=== PATIENT | male | born 1975 | race Caucasian/White ===

== ENCOUNTER 2024-09-28 18:02 | Emergency (ER) | payer MEDICAID, SELFPAY ==
[2024-09-28 18:08] VITALS: BP 103/66; PULSE 76; RESP 19; TEMP 36.8; O2SAT 96; BMI 25.8
--- NOTE | 2024-09-28 19:30 | XR_ITS ---
Examination: PA chest single view Technique: Upright PA chest single view Exam date and time: September 28, 2024 1936 hrs. Indications: Shortness of breath coughing beginning 3 days ago. Findings: Suspicious for early right upper lobe pneumonia Normal heart size The osseous structures are intact Impression: Suspicious for early right upper lobe pneumonia
--- NOTE | 2024-09-28 20:19 | PD.EDADULT ---
ED General RME/HPI General Chief complaint: Neuro Symptoms/Deficit Stated complaint: THINKS HE HAD A SEIZURE Time Seen by Provider: 09/28/24 19:30 Arrival date/time: 09/28/24 18:02 CC: Patient reports flailing of his arms at 3 AM while on the CPAP HPI as reported by his roommate. Since then the patient has had no other complaints of the mild shortness of breath patient denies cough or fever Related Data Home Medications ?Medication ?Instructions ?Recorded ?Confirmed lisinopril 20 mg tablet 30 mg PO QDAY #0 tabs 08/22/17 08/07/24 metoprolol tartrate 100 mg tablet 100 mg PO BID 03/14/21 08/07/24 metformin 500 mg tablet 500 mg PO HS 06/28/21 08/07/24 ropinirole 0.25 mg tablet 0.25 mg PO HS 10/03/21 08/07/24 amiodarone 200 mg tablet 200 mg PO QDAY 04/05/22 08/07/24 atorvastatin 40 mg tablet 40 mg PO HS 09/04/22 08/07/24 meclizine 25 mg tablet 25 mg PO BID PRN Dizziness 09/04/22 08/07/24 clopidogrel 75 mg tablet 75 mg PO QDAY 10/24/23 08/07/24 duloxetine 30 mg capsule,delayed 30 mg PO QDAY 10/24/23 08/07/24 release finasteride 5 mg tablet 5 mg PO QDAY 10/24/23 08/07/24 furosemide 20 mg tablet 20 mg PO QDAY 10/24/23 08/07/24 semaglutide 1 mg/dose (4 mg/3 mL) 1 mg subcut QWEEK 10/24/23 08/07/24 subcutaneous pen injector (Ozempic) gabapentin 300 mg capsule 300 mg PO TID 08/07/24 08/07/24 Previous Rx's ?Medication ?Instructions ?Recorded sulfamethoxazole 800 1 tab PO BID #14 tabs 02/06/24 mg-trimethoprim 160 mg tablet (Bactrim DS) furosemide 40 mg tablet (Lasix) 40 mg PO QDAY #14 tabs 04/18/24 potassium chloride 20 mEq 20 meq PO QDAY #14 tabs 04/18/24 tablet,extended release hydrocortisone 2.5 % topical cream 1 applic topical BID #28.35 grams 05/18/24 tamsulosin 0.4 mg capsule (Flomax) 0.4 mg PO QDAY #7 caps 07/12/24 cefuroxime axetil 500 mg tablet 500 mg PO BID #14 tabs 08/15/24 tamsulosin 0.4 mg capsule (Flomax) 0.4 mg PO QDAY #7 caps 08/23/24 azithromycin 250 mg tablet See Rx Instructions PO .COMPLEX #6 09/28/24 tabs Allergies Allergy/AdvReac Type Severity Reaction Status Date / Time No Known Allergies Allergy Verified 09/28/24 18:04 Review of Systems Review of Systems Narrative Review of Systems: GEN: No fever, no chills, no weight loss EYES: No discharge, no visual changes, no pain HEENT: No ear pain, no congestion, no sore throat PULM: No shortness of breath, no cough, no congestion CV: No chest pain, no dyspnea on exertion, no palpitations GI: No nausea, no vomiting, no diarrhea, no pain, no constipation : No frequency, no urgency, no dysuria MUSC/SKEL: No joint pain, no back pain SKIN: No rash PSYCH: No hallucinations, no depression HEME/LYMPH: No easy bleeding or bruising tendencies NEURO: No weakness, no headache Past Medical History Past Medical History NEUROLOGIC: Negative Neurological Disorders CARDIAC: Positive Cardiac Disorders, Myocardial Infarction, Angina, Coronary Artery Disease, Atherosclerotic Heart Disease, Hypercholesterolemia, Congestive Heart Failure, Edema, Deep Vein Thrombosis and Hypertension RESPIRATORY: Positive Asthma, Pneumonia, Pulmonary Embolism and Sleep Apnea; Negative Chronic Obstructive Pulmonary Disease (COPD) GASTROINTESTINAL: Positive Gastrointestinal Disorders, Gastroesophageal Reflux Disease and Obesity GENITOURINARY: Positive Genitourinary Disorders, Kidney Stones and Benign Prostatic Hyperplasia; Negative Renal Disease MUSCULOSKELETAL: Negative Musculoskeletal Disorders ENDOCRINE: Positive Diabetes Mellitus Type 2; Negative Endocrine Disorders or Diabetes Mellitus Type 1 HEMATOLOGIC: Positive Blood Disorders and Clotting Problems; Negative Anemia or Sickle Cell Disease PSYCHO/SOCIAL: Positive Anxiety OTHER HISTORY: Positive Developmental Delay and Falls; Negative Autoimmune Disease, Blood Transfusions, Anesthesia Reactions or Cancer Family History FAMILY HISTORY: Positive Family Cardiac Disorders, Family Cancer and Family Surgery; Negative Family Neurologic Problems, Family Psychiatric Problems, Family Respiratory Disorders, Family Gastrointestinal Problems or Family Anesthesia Reaction Surgical History SURGICAL: Positive Angiogram; Negative Coronary Stent Social History SMOKING STATUS: Never smoker SECOND HAND EXPOSURE: No SUBSTANCE USE: does not use 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 Exam Narrative Physical exam: [General: Obese not in any acute distress Head normocephalic HEENT: Within acceptable limits Neck is supple nontender Chest equal chest rise nontender to palpation Respiratory: Clear to auscultation no wheezes crackles or rubs CV: Rate rhythm is regular no murmurs rubs or clicks Abdomen is distended secondary to body habitus soft nontender no masses positive bowel sounds all 4 quadrants Back: No CVA tenderness no spinous process tenderness from cervical spine thoracic and lumbar spine Skin: Intact no petechiae rash induration ulceration or crepitus Extremities: Moving all extremity against resistance cap refill less than 2 seconds neurosensory intact Neuro: Awake alert oriented x3 Glascow coma 15 no focal deficits] Course Quality Measures none Orders Category Date Time Status XR chest 1V Stat Exams 09/28/24 19:30 Completed Vital Signs Vital signs: Vital Signs Temperature 98.2 F 09/28/24 18:08 Pulse Rate 76 09/28/24 18:08 Respiratory Rate 19 09/28/24 18:08 Blood Pressure 103/66 09/28/24 18:08 Pulse Oximetry (%) 96 09/28/24 18:08 Oxygen Delivery Method Room Air 09/28/24 18:08 [facility] Patient data External records reviewed:: [facility] previous records Clinical information provided by:: patient Social determinants that could affect healthcare access:: none Patient has the following chronic illnesses:: BiPAP at home on Flomax diabetic hypertension How is presenting disease/condition affected by chronic disease/condition?: uneffected by Evaluation data The following diagnostics were reviewed and interpreted by me:: lab results and radiology exam(s) Lab and/or radiology exams considered but not ordered:: Chest x-ray this is a possibility pneumonia. However patient has had no respiratory symptoms. Interpretation Summary: Possible pneumonia Medications Medications considered but not ordered:: None Medication administrations:: None Consultations Consultation(s) initiated? (list below): No Diagnosis Differential Diagnosis ED Complaint MDM: Pneumonia CHF COPD Most likely diagnosis given after review of the tests above:: Probably pneumonia Admission Indicated Admission indicated?: not indicated Explain why admission is indicated or not indicated:: Stable for outpatient follow-up Admission Request Was there a request for admission?: No Disposition Plan Disposition Plan: Discharge Discharge Attestation Discharge Attestation: The patient and all family members were given an opportunity to ask questions and understood the discharge instructions. Discharge instructions specifically effects, indications for sooner follow up or return to the emergency department, and the expected course of current diagnosis. Patient condition: Stable Medical Decision Making Differential Diagnosis Differential Diagnosis: Pneumonia CHF COPD Discharge Plan Plan Patient Disposition: HOME (Self Care) Patient condition on transfer: Stable Prescriptions/Referrals Prescriptions/Med Rec: New azithromycin 250 mg tablet See Rx Instructions .ROUTE .COMPLEX Qty: 6 0RF Rx Instructions: For 250 mg dose pack: take 500 mg today (day 1), then 250 mg for 4 days (days 2-5) No Action gabapentin 300 mg capsule 300 mg PO TID lisinopril 20 MG tablet 30 mg PO QDAY Qty: 0 metformin 500 mg tablet 500 mg PO HS Patient Comments: TAKE 1 TABLET BY MOUTH EVERY DAY AT BEDTIME FOR DIABETES metoprolol tartrate 100 mg tablet 100 mg PO BID Patient Comments: TAKE 1 TABLET BY MOUTH TWICE A DAY FOR BLOOD PRESSURE ropinirole 0.25 mg Tablet 0.25 mg PO HS amiodarone 200 mg Tablet 200 mg PO QDAY atorvastatin 40 mg tablet 40 mg PO HS Patient Comments: TAKE 1 TABLET BY MOUTH AT BEDTIME FOR CHOLESTEROL meclizine 25 mg tablet 25 mg PO BID PRN (Reason: Dizziness) Patient Comments: TAKE 1-2 TABLETS BY MOUTH TWICE A DAY NEEDED FOR DIZZINESS sulfamethoxazole-trimethoprim [Bactrim DS] 800-160 mg tablet 1 tab PO BID Qty: 14 0RF hydrocortisone 2.5 % cream 1 applic topical BID Qty: 28.35 0RF Rx Instructions: Stop when rash is gone; no more than 2 weeks tamsulosin [Flomax] 0.4 mg capsule 0.4 mg PO QDAY Qty: 7 0RF cefuroxime axetil 500 mg tablet 500 mg PO BID Qty: 14 0RF tamsulosin [Flomax] 0.4 mg capsule 0.4 mg PO QDAY Qty: 7 0RF furosemide 20 mg tablet 20 mg PO QDAY Ozempic 1 mg/dose (4 mg/3 mL) pen injector 1 mg SUBCUT QWEEK Rx Instructions: 1 time weekly duloxetine 30 mg capsule,delayed release(DR/EC) 30 mg PO QDAY finasteride 5 mg tablet 5 mg PO QDAY Patient Comments: TAKE 1 TABLET BY MOUTH EVERY DAY clopidogrel 75 mg tablet 75 mg PO QDAY furosemide [Lasix] 40 mg tablet 40 mg PO QDAY Qty: 14 0RF potassium chloride 20 mEq tablet extended release 20 meq PO QDAY Qty: 14 0RF Referrals: Akila Diaz PA-C [Primary Care Provider] - In 1 week Problem List Clinical Impression: Pneumonia Patient/Caregiver Discharge Instructions Other Activity Instructions:: Your chest x-ray is read as pneumonia I have low index suspicion that this is what you have however we will treat accordingly if there is a worsening of symptoms spite of medications return the emergency room immediately for further evaluation. Education Materials: ED Pneumonia (Adult) Print Language: Dutch Stand Alone Forms: [employer] Award Info., Patient Portal Info Letter, Work/School Release PA/LIGHT RAIL SIGNAL TECHNICIAN Supervising Physician PA/LIGHT RAIL SIGNAL TECHNICIAN Supervising Physician: Tate [place] ENP
[2024-09-28 20:27] VITALS: RESP 18
== END 2024-09-28 20:28 | disposition home or self-care (01) ==
PROVIDERS: Emergency Provider Emergency Medicine; PCP Physician Assistant
DX: J18.9 Pneumonia, unspecified organism (principal)
CPT/HCPCS: 71045; 99283

== ENCOUNTER 2024-10-10 15:39 | Emergency (ER) | payer MEDICAID, SELFPAY ==
--- NOTE | 2024-10-10 16:21 | XR_ITS ---
Examination: PA lateral chest 2 views Technique: Upright PA lateral chest 2 views Exam date and time: October 10, 2024 1626 hrs. Comparison September 28, 2024 Indications: Coughing back pain today. Findings: Mild bilateral perihilar basilar pneumonia Normal heart size The osseous structures are intact Impression: Mild bilateral perihilar basilar pneumonia
--- NOTE | 2024-10-10 16:22 | EDNOTE_ITS ---
ED Back Injury Pain RME/HPI General Chief Complaint: Back Pain/Injury Stated Complaint: BACK PAIN Time Seen by Provider: 10/10/24 16:18 Arrival date/time: 10/10/24 15:39 RME / HPI RME / HPI Narrative: 49-year-old male patient came in for evaluation regarding cough. Patient's been having cough for several days, associated with upper back pain, described as dull ache, separately moderate. Denies any fever denies any shortness of breath denies any fall denies any trauma patient is ambulatory no medications taken prior travel. Related Data Home Medications ?Medication ?Instructions ?Recorded ?Confirmed lisinopril 20 mg tablet 30 mg PO QDAY #0 tabs 08/22/17 08/07/24 metoprolol tartrate 100 mg tablet 100 mg PO BID 03/14/21 08/07/24 metformin 500 mg tablet 500 mg PO HS 06/28/21 08/07/24 ropinirole 0.25 mg tablet 0.25 mg PO HS 10/03/21 08/07/24 amiodarone 200 mg tablet 200 mg PO QDAY 04/05/22 08/07/24 atorvastatin 40 mg tablet 40 mg PO HS 09/04/22 08/07/24 meclizine 25 mg tablet 25 mg PO BID PRN Dizziness 09/04/22 08/07/24 clopidogrel 75 mg tablet 75 mg PO QDAY 10/24/23 08/07/24 duloxetine 30 mg capsule,delayed 30 mg PO QDAY 10/24/23 08/07/24 release finasteride 5 mg tablet 5 mg PO QDAY 10/24/23 08/07/24 furosemide 20 mg tablet 20 mg PO QDAY 10/24/23 08/07/24 semaglutide 1 mg/dose (4 mg/3 mL) 1 mg subcut QWEEK 10/24/23 08/07/24 subcutaneous pen injector (Ozempic) gabapentin 300 mg capsule 300 mg PO TID 08/07/24 08/07/24 Previous Rx's ?Medication ?Instructions ?Recorded sulfamethoxazole 800 1 tab PO BID #14 tabs 02/06/24 mg-trimethoprim 160 mg tablet (Bactrim DS) furosemide 40 mg tablet (Lasix) 40 mg PO QDAY #14 tabs 04/18/24 potassium chloride 20 mEq 20 meq PO QDAY #14 tabs 04/18/24 tablet,extended release hydrocortisone 2.5 % topical cream 1 applic topical BID #28.35 grams 05/18/24 tamsulosin 0.4 mg capsule (Flomax) 0.4 mg PO QDAY #7 caps 07/12/24 cefuroxime axetil 500 mg tablet 500 mg PO BID #14 tabs 08/15/24 tamsulosin 0.4 mg capsule (Flomax) 0.4 mg PO QDAY #7 caps 08/23/24 azithromycin 250 mg tablet See Rx Instructions PO .COMPLEX #6 09/28/24 tabs amoxicillin 875 mg-potassium 1 tab PO BID #14 tabs 10/10/24 clavulanate 125 mg tablet doxycycline monohydrate 100 mg 100 mg PO BID #14 caps 10/10/24 capsule Allergies Allergy/AdvReac Type Severity Reaction Status Date / Time No Known Allergies Allergy Verified 10/10/24 15:40 Review of Systems Review of Systems Narrative Review of Systems: Review of system reviewed and within normal limits except mentioned in HPI ED Exam Narrative Physical exam: VITAL SIGNS: Reviewed. GENERAL APPEARANCE: Alert and interactive, follows commands, no acute distress, HEAD AND FACE: Non-traumatic. ENT: PERRL, pink conjunctivitis, eyelid no trauma, Mucous membrane moist. NECK: Supple, nontender, no nuchal rigidity. CHEST: Posterior back tenderness, no crepitus, no paradoxical movement, no retractions. LUNGS: Clear, well ventilated, symmetric, no rales, no wheezing, no ronchi, no stridor, good breath sounds bilaterally. HEART: Regular rate, regular rhythm, no murmur, no gallops. ABDOMEN: Soft, positive bowel sounds, nondistended, no guarding, nontender, no rebound, no masses, RECTAL: Deferred. GENITAL: Deferred. NEUROLOGICAL: Gross motor function intact sensory function intact, Appropriate for age. MUSCULOSKELETAL: low back nontender, full range of motion. EXTREMITIES: Nontender, full range of motion. SKIN: Color pink, dry, no rash, no lacerations, no abrasions, no contusions. LYMPHATICS: Deferred. Course Quality Measures none Orders Category Date Time Status XR chest 2V Stat Exams 10/10/24 16:21 Completed Amoxicillin/Pot Clav 875 [Augmentin 875] Med 10/10/24 17:12 Discontinued 1 tab PO X1 ONE Doxycycline [Vibramycin] Med 10/10/24 17:12 Discontinued 100 mg PO X1 ONE Ketorolac Inj [Toradol Inj] Med 10/10/24 16:21 Discontinued 30 mg IM X1 ONE Back Pain / Injury MDM Narrative MDM Narrative:: 49-year-old male patient came in for evaluation regarding cough. Patient's been having cough for several days, associated with upper back pain, described as dull ache, separately moderate. Denies any fever denies any shortness of breath denies any fall denies any trauma patient is ambulatory no medications taken prior travel. Chest x-ray came back with Mild bilateral perihilar basilar pneumonia Patient received Augmentin and doxycycline p.o. Patient data External records reviewed:: None Clinical information provided by:: none Social determinants that could affect healthcare access:: none Patient has the following chronic illnesses:: Hypertension, CAD, diabetes mellitus How is presenting disease/condition affected by chronic disease/condition?: exacerbated by Evaluation data The following diagnostics were reviewed and interpreted by me:: radiology exam (s) Lab and/or radiology exams considered but not ordered:: None Interpretation Summary: Chest x-ray showed Mild bilateral perihilar basilar pneumonia Medications / Prescriptions Medications or Prescriptions considered but not ordered:: None Medication administrations:: Medication Administration History Discontinued Medications Amoxicillin/Clavulanate Potassium (Amoxicillin/Pot Clav 875 Tablet) 1 tab PO X1 ONE Stop: 10/10/24 17:13 Doxycycline Hyclate (Doxycycline 100 Mg Tablet) 100 mg PO X1 ONE Stop: 10/10/24 17:13 Ketorolac Tromethamine (Ketorolac Inj 60 Mg/2 Ml Vial) 30 mg IM X1 ONE Stop: 10/10/24 16:22 Augmentin doxycycline and Toradol Consultations Consultation(s) initiated? (list below): No Diagnosis Differential diagnosis back pain/injury: other (Back pain, pneumonia, bronchitis) Most likely diagnosis given after review of the tests above:: Pneumonia Admission Indicated Admission indicated?: not indicated Explain why admission is indicated or not indicated:: Stable Admission Request Was there a request for admission?: No Disposition Plan Disposition Plan: Discharge Discharge Attestation Discharge Attestation: The patient was given an opportunity to ask questions and understood the discharge instructions. Discharge instructions specifically effects, indications for sooner follow up or return to the emergency department, and the expected course of current diagnosis. Patient condition: Stable Discharge Plan Plan Patient Disposition: HOME (Self Care) Disposition Comment: Stable Prescriptions/Referrals Prescriptions/Med Rec: New amoxicillin-pot clavulanate 875-125 mg tablet 1 tab PO BID Qty: 14 0RF doxycycline monohydrate 100 mg capsule 100 mg PO BID Qty: 14 0RF No Action gabapentin 300 mg capsule 300 mg PO TID lisinopril 20 MG tablet 30 mg PO QDAY Qty: 0 metformin 500 mg tablet 500 mg PO HS Patient Comments: TAKE 1 TABLET BY MOUTH EVERY DAY AT BEDTIME FOR DIABETES metoprolol tartrate 100 mg tablet 100 mg PO BID Patient Comments: TAKE 1 TABLET BY MOUTH TWICE A DAY FOR BLOOD PRESSURE ropinirole 0.25 mg Tablet 0.25 mg PO HS amiodarone 200 mg Tablet 200 mg PO QDAY atorvastatin 40 mg tablet 40 mg PO HS Patient Comments: TAKE 1 TABLET BY MOUTH AT BEDTIME FOR CHOLESTEROL meclizine 25 mg tablet 25 mg PO BID PRN (Reason: Dizziness) Patient Comments: TAKE 1-2 TABLETS BY MOUTH TWICE A DAY NEEDED FOR DIZZINESS sulfamethoxazole-trimethoprim [Bactrim DS] 800-160 mg tablet 1 tab PO BID Qty: 14 0RF hydrocortisone 2.5 % cream 1 applic topical BID Qty: 28.35 0RF Rx Instructions: Stop when rash is gone; no more than 2 weeks tamsulosin [Flomax] 0.4 mg capsule 0.4 mg PO QDAY Qty: 7 0RF cefuroxime axetil 500 mg tablet 500 mg PO BID Qty: 14 0RF tamsulosin [Flomax] 0.4 mg capsule 0.4 mg PO QDAY Qty: 7 0RF furosemide 20 mg tablet 20 mg PO QDAY Ozempic 1 mg/dose (4 mg/3 mL) pen injector 1 mg SUBCUT QWEEK Rx Instructions: 1 time weekly duloxetine 30 mg capsule,delayed release(DR/EC) 30 mg PO QDAY finasteride 5 mg tablet 5 mg PO QDAY Patient Comments: TAKE 1 TABLET BY MOUTH EVERY DAY clopidogrel 75 mg tablet 75 mg PO QDAY furosemide [Lasix] 40 mg tablet 40 mg PO QDAY Qty: 14 0RF potassium chloride 20 mEq tablet extended release 20 meq PO QDAY Qty: 14 0RF azithromycin 250 mg tablet See Rx Instructions .ROUTE .COMPLEX Qty: 6 0RF Rx Instructions: For 250 mg dose pack: take 500 mg today (day 1), then 250 mg for 4 days (days 2-5) Referrals: Akila Diaz PA-C [Primary Care Provider] - In 1 week Problem List Clinical Impression: Pneumonia Patient/Caregiver Discharge Instructions Discharge Activity: activity as tolerated Education Materials: What Is Pneumonia?, Preventing Pneumonia Additional Instructions: Thank you for the opportunity for serving you today. You are stable for discharged . You are advised to: Follow-up with your PCP in 1 to 2 days Return to ED for worsening of symptoms Increase oral fluids Take medication as prescribed Print Language: Belarusian Stand Alone Forms: [employer] Award Info., Patient Portal Info Letter PA/KARI Supervising Physician RENAE/KARI Supervising Physician: MD Roni
[2024-10-10] MEDS: DOXYCYCLINE 100 MG TABLET PO (18:07)
[2024-10-10] MEDS: AMOXICILLIN/POT CLAV 875 TABLET 1 TAB PO (18:07)
[2024-10-10] MEDS: KETOROLAC INJ 60 MG/2 ML VIAL 30 MG IM (18:07)
== END 2024-10-10 18:14 | disposition home or self-care (01) ==
PROVIDERS: Emergency Provider Emergency Medicine; PCP Physician Assistant
DX: J18.9 Pneumonia, unspecified organism (principal)
CPT/HCPCS: 71046; 96372; 99283; J1885; A9270

== ENCOUNTER 2024-10-20 23:48 | Emergency (ER) | payer MEDICAID, SELFPAY ==
[2024-10-20 23:49] VITALS: BMI 40.1
[2024-10-21] VITALS: BP 126/80; PULSE 85; RESP 18; TEMP 36.6; O2SAT 97
--- NOTE | 2024-10-21 00:17 | XR_ITS ---
Examination: PA lateral chest 2 views Technique: Upright PA lateral chest 2 views Exam date and time: October 21, 2024 0026 hrs. Indications: Coughing today. Findings: Suspicious for early right upper lobe pneumonia Reduced inspiratory effort Normal heart size Impression: Poor inspiratory effort chest x-ray
--- NOTE | 2024-10-21 00:19 | EDNOTE_ITS ---
Upper Respiratory Inf. RME/HPI General Chief Complaint: General Adult/Misc Complain Stated Complaint: NOT FEELING GOOD Time Seen by Provider: 10/21/24 00:13 Source: patient Arrival date/time: 10/20/24 23:48 48-year-old male presents emergency department complaining of cough, nasal congestion, and generalized bodyaches for 3 days. Patient reports currently on antibiotics for pneumonia. Patient denies any fever, chills, nausea vomiting, chest pain, or any other associated symptoms. Mode of arrival: ambulatory Limitations: no limitations Related Data Home Medications ?Medication ?Instructions ?Recorded ?Confirmed lisinopril 20 mg tablet 30 mg PO QDAY #0 tabs 08/22/17 08/07/24 metoprolol tartrate 100 mg tablet 100 mg PO BID 03/14/21 08/07/24 metformin 500 mg tablet 500 mg PO HS 06/28/21 08/07/24 ropinirole 0.25 mg tablet 0.25 mg PO HS 10/03/21 08/07/24 amiodarone 200 mg tablet 200 mg PO QDAY 04/05/22 08/07/24 atorvastatin 40 mg tablet 40 mg PO HS 09/04/22 08/07/24 meclizine 25 mg tablet 25 mg PO BID PRN Dizziness 09/04/22 08/07/24 clopidogrel 75 mg tablet 75 mg PO QDAY 10/24/23 08/07/24 duloxetine 30 mg capsule,delayed 30 mg PO QDAY 10/24/23 08/07/24 release finasteride 5 mg tablet 5 mg PO QDAY 10/24/23 08/07/24 furosemide 20 mg tablet 20 mg PO QDAY 10/24/23 08/07/24 semaglutide 1 mg/dose (4 mg/3 mL) 1 mg subcut QWEEK 10/24/23 08/07/24 subcutaneous pen injector (Ozempic) gabapentin 300 mg capsule 300 mg PO TID 08/07/24 08/07/24 Previous Rx's ?Medication ?Instructions ?Recorded sulfamethoxazole 800 1 tab PO BID #14 tabs 02/06/24 mg-trimethoprim 160 mg tablet (Bactrim DS) furosemide 40 mg tablet (Lasix) 40 mg PO QDAY #14 tabs 04/18/24 potassium chloride 20 mEq 20 meq PO QDAY #14 tabs 04/18/24 tablet,extended release hydrocortisone 2.5 % topical cream 1 applic topical BID #28.35 grams 05/18/24 tamsulosin 0.4 mg capsule (Flomax) 0.4 mg PO QDAY #7 caps 07/12/24 cefuroxime axetil 500 mg tablet 500 mg PO BID #14 tabs 08/15/24 tamsulosin 0.4 mg capsule (Flomax) 0.4 mg PO QDAY #7 caps 08/23/24 azithromycin 250 mg tablet See Rx Instructions PO .COMPLEX #6 09/28/24 tabs amoxicillin 875 mg-potassium 1 tab PO BID #14 tabs 10/10/24 clavulanate 125 mg tablet doxycycline monohydrate 100 mg 100 mg PO BID #14 caps 10/10/24 capsule Allergies Allergy/AdvReac Type Severity Reaction Status Date / Time No Known Allergies Allergy Verified 10/20/24 23:50 Review of Systems Review of Systems Systems Reviewed: All systems reviewed, normal except as documented Constitutional Constitutional: Reports system reviewed and no additional complaints, except as documented, Reports body ache(s), Denies chills and Denies fever(s) Eyes Eyes: Reports system reviewed and no additional complaints, except as documented and Denies change in vision ENT Ears, Nose, Mouth, and Throat: Reports system reviewed and no additional complaints, except as documented, Denies disequilibrium, Denies dizziness, Reports nasal congestion, Denies sore throat and Denies vertigo Cardiovascular Cardiovascular: Reports system reviewed and no additional complaints, except as documented, Denies chest pain and Denies dyspnea Respiratory Respiratory: Reports system reviewed and no additional complaints, except as documented, Denies chest congestion, Reports cough and Denies dyspnea Gastrointestinal Gastrointestinal: Reports system reviewed and no additional complaints, except as documented, Denies abdominal pain, Denies nausea and Denies vomiting Musculoskeletal Musculoskeletal: Reports system reviewed and no additional complaints, except as documented, Denies abnormal gait and Denies arthralgias Integumentary/Breasts Skin/Breast: Reports system reviewed and no additional complaints, except as documented, Denies erythema, Denies rash and Denies wounds Neurologic Neurologic: Reports system reviewed and no additional complaints, except as documented, Denies abnormal gait, Denies disequilibrium, Denies dizziness and Denies vertigo Past Medical History Past Medical History NEUROLOGIC: Negative Neurological Disorders CARDIAC: Positive Cardiac Disorders, Myocardial Infarction, Angina, Coronary Artery Disease, Atherosclerotic Heart Disease, Hypercholesterolemia, Congestive Heart Failure, Edema, Deep Vein Thrombosis and Hypertension RESPIRATORY: Positive Asthma, Pneumonia, Pulmonary Embolism and Sleep Apnea; Negative Chronic Obstructive Pulmonary Disease (COPD) GASTROINTESTINAL: Positive Gastrointestinal Disorders, Gastroesophageal Reflux Disease and Obesity GENITOURINARY: Positive Genitourinary Disorders, Kidney Stones and Benign Prostatic Hyperplasia; Negative Renal Disease MUSCULOSKELETAL: Negative Musculoskeletal Disorders ENDOCRINE: Positive Diabetes Mellitus Type 2; Negative Endocrine Disorders or Diabetes Mellitus Type 1 HEMATOLOGIC: Positive Blood Disorders and Clotting Problems; Negative Anemia or Sickle Cell Disease PSYCHO/SOCIAL: Positive Anxiety OTHER HISTORY: Positive Developmental Delay and Falls; Negative Autoimmune Disease, Blood Transfusions, Anesthesia Reactions or Cancer Family History FAMILY HISTORY: Positive Family Cardiac Disorders, Family Cancer and Family Surgery; Negative Family Neurologic Problems, Family Psychiatric Problems, Family Respiratory Disorders, Family Gastrointestinal Problems or Family Anesthesia Reaction Surgical History SURGICAL: Positive Angiogram; Negative Coronary Stent Social History SMOKING STATUS: Never smoker SECOND HAND EXPOSURE: No SUBSTANCE USE: does not use 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 Exam General Limitations: Present no limitations General appearance: Present alert and in no apparent distress Head Head exam: Present atraumatic Eye Eye exam: Present normal appearance, PERRL and EOMI ENT ENT exam: Present normal exam, normal oropharynx and mucous membranes moist Neck Neck exam: Present normal inspection, full ROM and trachea midline Chest Chest inspection: Present normal inspection and symmetric chest wall rise Respiratory Respiratory exam: Present normal lung sounds bilaterally Cardiovascular Cardiovascular exam: Present regular rate, normal rhythm and normal heart sounds Abdominal Exam Abdominal exam: Present soft and normal bowel sounds Extremities Exam Extremities exam: Present normal inspection and full ROM Back Exam Back exam: Present normal inspection and full ROM Neurological Exam Neurological exam: Present alert, oriented X3 and CN II-XII intact Psychiatric Psychiatric exam: Present normal affect and normal mood Skin Skin exam: Present warm, dry, intact and normal color Course Quality Measures none Orders Category Date Time Status Bedside COVID-19 Antigen Test NOW Care 10/21/24 00:17 Active Bedside Influenza A&B Antigen Test NOW Care 10/21/24 00:17 Completed XR chest 2V Stat Exams 10/21/24 00:17 Taken Acetaminophen Tab [Tylenol Tab] Med 10/21/24 01:04 Once 650 mg PO X1 ONE Vital Signs Vital signs: Vital Signs Temperature 98 F 10/21/24 00:00 Pulse Rate 85 10/21/24 00:00 Respiratory Rate 18 10/21/24 00:00 Blood Pressure 126/80 10/21/24 00:00 Pulse Oximetry (%) 97 10/21/24 00:00 Oxygen Delivery Method Room Air 10/21/24 00:00 97% room air within normal limits Upper Respiratory Infection MDM Narrative MDM Narrative:: 48-year-old male presents emergency department complaining of cough, nasal congestion, and generalized bodyaches for 3 days. Patient reports currently on antibiotics for pneumonia. Patient denies any fever, chills, nausea vomiting, chest pain, or any other associated symptoms. No adventitious lung sounds on auscultation. Chest x-ray was unremarkable for any pneumonic infiltrates based on my interpretation. COVID and influenza swabs negative. Patient is already on oral antibiotics for pneumonia likely suffering viral infection. Patient appears nontoxic and is hemodynamically stable. Patient not appear to be in any respiratory distress speaking in full sentences. Patient instructed to continue taking antibiotics and have close follow-up with primary care provider and return to emergency department for any worsening symptoms or as needed. Patient data External records reviewed:: [facility] previous records Clinical information provided by:: patient Social determinants that could affect healthcare access:: none Patient has the following chronic illnesses:: See chart How is presenting disease/condition affected by chronic disease/condition?: uneffected by Evaluation data The following diagnostics were reviewed and interpreted by me:: lab results and radiology exam(s) Lab and/or radiology exams considered but not ordered:: Ordered Interpretation Summary: Interpreted by me Medications / Prescriptions Medications or Prescriptions considered but not ordered:: N/A Medication administrations:: Medication Administration History Acetaminophen (Acetaminophen 325 Mg Tablet) 650 mg PO X1 ONE Stop: 10/21/24 01:05 N/A Consultations Consultation(s) initiated? (list below): No Diagnosis Upper Respiratory Differential Diagnosis: upper respiratory infection, sinusitis, viral infection, bronchitis, influenza and pharyngitis Most likely diagnosis given after review of the tests above:: Viral infection Admission Indicated Admission indicated?: not indicated Admission Request Was there a request for admission?: No Disposition Plan Disposition Plan: Discharge Discharge Attestation Discharge Attestation: The patient and all family members were given an opportunity to ask questions and understood the discharge instructions. Discharge instructions specifically effects, indications for sooner follow up or return to the emergency department, and the expected course of current diagnosis. Patient condition: Stable Discharge Plan Plan Patient Disposition: HOME (Self Care) Disposition Comment: Stable Prescriptions/Referrals Prescriptions/Med Rec: No Action gabapentin 300 mg capsule 300 mg PO TID lisinopril 20 MG tablet 30 mg PO QDAY Qty: 0 metformin 500 mg tablet 500 mg PO HS Patient Comments: TAKE 1 TABLET BY MOUTH EVERY DAY AT BEDTIME FOR DIABETES metoprolol tartrate 100 mg tablet 100 mg PO BID Patient Comments: TAKE 1 TABLET BY MOUTH TWICE A DAY FOR BLOOD PRESSURE ropinirole 0.25 mg Tablet 0.25 mg PO HS amiodarone 200 mg Tablet 200 mg PO QDAY atorvastatin 40 mg tablet 40 mg PO HS Patient Comments: TAKE 1 TABLET BY MOUTH AT BEDTIME FOR CHOLESTEROL meclizine 25 mg tablet 25 mg PO BID PRN (Reason: Dizziness) Patient Comments: TAKE 1-2 TABLETS BY MOUTH TWICE A DAY NEEDED FOR DIZZINESS sulfamethoxazole-trimethoprim [Bactrim DS] 800-160 mg tablet 1 tab PO BID Qty: 14 0RF hydrocortisone 2.5 % cream 1 applic topical BID Qty: 28.35 0RF Rx Instructions: Stop when rash is gone; no more than 2 weeks tamsulosin [Flomax] 0.4 mg capsule 0.4 mg PO QDAY Qty: 7 0RF cefuroxime axetil 500 mg tablet 500 mg PO BID Qty: 14 0RF tamsulosin [Flomax] 0.4 mg capsule 0.4 mg PO QDAY Qty: 7 0RF furosemide 20 mg tablet 20 mg PO QDAY Ozempic 1 mg/dose (4 mg/3 mL) pen injector 1 mg SUBCUT QWEEK Rx Instructions: 1 time weekly duloxetine 30 mg capsule,delayed release(DR/EC) 30 mg PO QDAY finasteride 5 mg tablet 5 mg PO QDAY Patient Comments: TAKE 1 TABLET BY MOUTH EVERY DAY clopidogrel 75 mg tablet 75 mg PO QDAY furosemide [Lasix] 40 mg tablet 40 mg PO QDAY Qty: 14 0RF potassium chloride 20 mEq tablet extended release 20 meq PO QDAY Qty: 14 0RF azithromycin 250 mg tablet See Rx Instructions .ROUTE .COMPLEX Qty: 6 0RF Rx Instructions: For 250 mg dose pack: take 500 mg today (day 1), then 250 mg for 4 days (days 2-5) amoxicillin-pot clavulanate 875-125 mg tablet 1 tab PO BID Qty: 14 0RF doxycycline monohydrate 100 mg capsule 100 mg PO BID Qty: 14 0RF Problem List Clinical Impression: Viral infection Patient/Caregiver Discharge Instructions Discharge Activity: activity as tolerated Education Materials: ED Viral Syndrome (Adult) Additional Instructions: Continue taking antibiotics until completed for pneumonia as you mentioned. Follow-up with primary care provider in 24 to 48 hours and return to emergency department for any worsening symptoms or as needed. Print Language: Icelandic Stand Alone Forms: [employer] Award Info., Patient Portal Info Letter PA/ACCOUNTS ADMINISTRATOR Supervising Physician PA/ACCOUNTS ADMINISTRATOR Supervising Physician: Dr. Gregg
[2024-10-21] MEDS: ACETAMINOPHEN 325 MG TABLET 650 MG PO (01:11)
== END 2024-10-21 01:13 | disposition home or self-care (01) ==
LOC: SERX 10-21 06:28
PROVIDERS: Emergency Provider Emergency Medicine; PCP Physician Assistant
DX: B34.9 Viral infection, unspecified (principal)
CPT/HCPCS: 71046; 87400; 87811; 99283; A9270

== ENCOUNTER 2024-10-22 19:12 | Emergency (ER) | payer MEDICAID, SELFPAY ==
[2024-10-22 19:13] VITALS: BMI 40.4
[2024-10-22 19:54] VITALS: BP 155/92; PULSE 98; RESP 16; TEMP 37.1; O2SAT 96
--- NOTE | 2024-10-22 20:00 | XR_ITS ---
Examination: CT chest, without intravenous contrast. Sagittal and coronal 2-D reconstructions. Exam date and time: October 22, 2024 2010 hrs. Indications: Coughing chest pain today Comparison: January 29, 2024 CTDI:vol (mGy) 16.1 DLP: (mGycm) 638 Technique: Multiple 3.0 mm axial sections of the chest to been obtained. Bone and lung density settings are obtained. Sagittal and coronal 2-D reconstructions have been obtained. Low dose protocols were performed. One or more of the following dose reduction techniques were used; automated exposure control, adjustment of the mA and/or KV according to patient size, use of iterative reconstruction technique. Findings: Aneurysmal dilatation ascending thoracic aorta AP dimension 4.6 cm Pulmonary artery segments are not enlarged No mediastinal lymphadenopathy Mild vascular congestion No pneumonia or pulmonary edema 16mm right lobe liver lesion axial image 115 Contracted gallbladder Spleen not enlarged No pancreatic mass Impression: Mild aneurysmal dilatation ascending thoracic aorta No paratracheal tracheobronchial or bronchopulmonary adenopathy No pneumonia, pulmonary edema or noncalcified pulmonary nodules 16 mm right lobe liver lesion, recommend MRI abdomen follow-up pre and postcontrast
--- NOTE | 2024-10-22 20:01 | PD.EDRME ---
Rapid Medical Screening Exam RME Arrival date/time: 10/22/24 19:12 49M with history of Factor V Leiden mutation, DM, HTN, CHF, CAD, TAA and kidney stones presents to ED with continued dysuria/hematuria. Patient also has this CP and SOB that won't go away, though patient doesn't know if it's from the pain of his kidney stones. Patient has been here several times in the past few days for possible PNA and is on ABX. Chief Complaint: General Adult/Misc Complain Vital signs: Vital Signs Temperature 98.7 F 10/22/24 19:54 Pulse Rate 98 10/22/24 19:54 Respiratory Rate 16 10/22/24 19:54 Blood Pressure 155/92 H 10/22/24 19:54 Pulse Oximetry (%) 96 10/22/24 19:54 Oxygen Delivery Method Room Air 10/22/24 19:54
[2024-10-22 20:29] LABS: Basophils % (Auto) 0 % (0-2.5); Eosinophils # (Auto) 0.1 Thou/mm3 (0.0-0.5); Eosinophils % (Auto) 1 % (0-10); Hemoglobin 17.6 g/dL (13.5-16.0); Immature Granulocytes % (Auto) 0 % (0-0); Immature Granulocytes Auto 0.01 Thou/mm3 (0.00-0.00); Lymphocytes # (Auto) 1.9 Thou/mm3 (1.0-4.8); Lymphocytes % (Auto) 27 % (10-50); Mean Corpuscular HGB Conc 33.8 g/dl (31.0-37.0); Mean Corpuscular Hemoglobin 31.2 pg (25.0-35.0); Mean Corpuscular Volume 92 fL (80-100); Monocytes # (Auto) 0.9 Thou/mm3 (0.0-0.8); Monocytes % (Auto) 13 % (0-12); Neutrophils # (Auto) 4.1 Thou/mm3 (1.8-7.7); Neutrophils % (Auto) 59 % (37-80); Nucleated Red Blood Cell % 0 /100 WBC (0); Platelet Count 244 Thou/mm3 (140-440); RDW Standard Deviation 41.9 fL (35.1-43.9); Red Blood Count 5.65 Miln/mm3 (4.50-5.90)
[2024-10-22 20:58] LABS: Collection Type, Urine Clean Catch; RBC,Urine 0 /hpf (0-3); Squamous Epithelial Cell,Urine 0 /hpf (0-5); WBC,Urine 0 /hpf (0-5)
[2024-10-22 20:59] LABS: Alanine Aminotransferase 45 U/L (10-49); Albumin, Serum 4.5 gm/dL (3.5-5.0); Albumin/Globulin Ratio 1.5 (1.2-2.2); Alkaline Phosphatase 174 U/L (46-116); Anion Gap 8 (7-16); Aspartate Amino Transferase 30 U/L (0-34); BUN/Creatinine Ratio 9 Ratio (12-20); Bilirubin,Total 0.4 mg/dL (0.3-1.2); Blood Urea Nitrogen 10 mg/dL (9-23); Chloride 107 mMol/L (98-107); Creatinine (Component) 1.1 mg/dL (0.6-1.3); Estimated Creatinine Clearance 93.1 mL/min (>60); Glucose 105 mg/dL (74-106); Osmolality,Calculated 285 (275-295); Sodium 144 mMol/L (136-145); Total Protein 7.5 gm/dL (5.7-8.2); eGFR > 60 See Note
[2024-10-22 21:13] LABS: Bilirubin,Urine Negative (Negative); Blood,Urine Negative (Negative); Clarity,Urine Clear (Clear/Hazy); Color,Urine Yellow (Lt Yel-Yel); Culture Indicated,Urine Not Indicated; Glucose, Urine Negative (Negative); Hyaline Casts,Urine < 1 /hpf (0-1); Ketones,Urine Negative (Negative); Leukocyte Esterase,Urine Negative (Negative); Nitrite,Urine Negative (Negative); PH,Urine 5.5 (5.0-7.0); Protein,Urine Trace (Neg - Trace); Specific Gravity,Urine 1.032 (1.001-1.035); Urobilinogen,Urine Negative mg/dL (0.0-1.0)
[2024-10-22 21:36] VITALS: BP 112/81; PULSE 91; RESP 19; TEMP 37.1; O2SAT 97
--- NOTE | 2024-10-22 22:25 | EDNOTE_ITS ---
ED General RME/HPI General Chief complaint: General Adult/Misc Complain Stated complaint: PAIN IN URINATION, CP,SOB Arrival date/time: 10/22/24 19:12 RME / HPI RME / HPI narrative: 10/22/24 19:12 49M with history of Factor V Leiden mutation, DM, HTN, CHF, CAD, TAA and kidney stones presents to ED with continued dysuria/hematuria. Patient also has this CP and SOB that won't go away, though patient doesn't know if it's from the pain of his kidney stones. Patient has been here several times in the past few days for possible PNA and is on ABX. ----- Dr. Galloway?s Main ED Evaluation: 49yo male with pmhx CHF, CAD, TAA, HTN, DM presents to the ED for a chief complaint of chest pain x today. Patient describes the pain as throbbing in nature. Patient states he was seen by his PCP today due to having chest pain, but was not given anything for it. He notes he had one emetic episode and has had burning with urination. He denies any shortness of breath, fever, chills or any other associated symptoms. No known allergies. Patient states he does not see his as400 developer, Dr. Ortega, until next year. Related Data Home Medications ?Medication ?Instructions ?Recorded ?Confirmed lisinopril 20 mg tablet 30 mg PO QDAY #0 tabs 08/22/17 08/07/24 metoprolol tartrate 100 mg tablet 100 mg PO BID 03/14/21 08/07/24 metformin 500 mg tablet 500 mg PO HS 06/28/21 08/07/24 ropinirole 0.25 mg tablet 0.25 mg PO HS 10/03/21 08/07/24 amiodarone 200 mg tablet 200 mg PO QDAY 04/05/22 08/07/24 atorvastatin 40 mg tablet 40 mg PO HS 09/04/22 08/07/24 meclizine 25 mg tablet 25 mg PO BID PRN Dizziness 09/04/22 08/07/24 clopidogrel 75 mg tablet 75 mg PO QDAY 10/24/23 08/07/24 duloxetine 30 mg capsule,delayed 30 mg PO QDAY 10/24/23 08/07/24 release finasteride 5 mg tablet 5 mg PO QDAY 10/24/23 08/07/24 furosemide 20 mg tablet 20 mg PO QDAY 10/24/23 08/07/24 semaglutide 1 mg/dose (4 mg/3 mL) 1 mg subcut QWEEK 10/24/23 08/07/24 subcutaneous pen injector (Ozempic) gabapentin 300 mg capsule 300 mg PO TID 08/07/24 08/07/24 Previous Rx's ?Medication ?Instructions ?Recorded sulfamethoxazole 800 1 tab PO BID #14 tabs 02/06/24 mg-trimethoprim 160 mg tablet (Bactrim DS) furosemide 40 mg tablet (Lasix) 40 mg PO QDAY #14 tabs 04/18/24 potassium chloride 20 mEq 20 meq PO QDAY #14 tabs 04/18/24 tablet,extended release hydrocortisone 2.5 % topical cream 1 applic topical BID #28.35 grams 05/18/24 tamsulosin 0.4 mg capsule (Flomax) 0.4 mg PO QDAY #7 caps 07/12/24 cefuroxime axetil 500 mg tablet 500 mg PO BID #14 tabs 08/15/24 tamsulosin 0.4 mg capsule (Flomax) 0.4 mg PO QDAY #7 caps 08/23/24 azithromycin 250 mg tablet See Rx Instructions PO .COMPLEX #6 09/28/24 tabs amoxicillin 875 mg-potassium 1 tab PO BID #14 tabs 10/10/24 clavulanate 125 mg tablet doxycycline monohydrate 100 mg 100 mg PO BID #14 caps 10/10/24 capsule Allergies Allergy/AdvReac Type Severity Reaction Status Date / Time No Known Allergies Allergy Verified 10/20/24 23:50 Review of Systems Review of Systems Systems Reviewed: All systems reviewed, normal except as documented Narrative Review of Systems: Gen: No fever, no chills, no weight loss EYES: No discharge, no visual changes, no pain HEENT: No ear pain, no congestion, no sore throat PULM: No shortness of breath, no cough, no congestion CV: + chest pain, no dyspnea on exertion, no palpitations GI: + nausea, + vomiting, no diarrhea, no pain, no constipation : No frequency, no urgency, + dysuria Musc/skel: No joint pain, no back pain Skin: No rash Psyc: No hallucinations, no depression Heme/Lymph: No easy bleeding or bruising tendencies Neuro: No weakness, no headache Past Medical History Past Medical History NEUROLOGIC: Negative Neurological Disorders CARDIAC: Positive Cardiac Disorders, Myocardial Infarction, Angina, Coronary Artery Disease, Atherosclerotic Heart Disease, Hypercholesterolemia, Congestive Heart Failure, Edema, Deep Vein Thrombosis and Hypertension RESPIRATORY: Positive Asthma, Pneumonia, Pulmonary Embolism and Sleep Apnea; Negative Chronic Obstructive Pulmonary Disease (COPD) GASTROINTESTINAL: Positive Gastrointestinal Disorders, Gastroesophageal Reflux Disease and Obesity GENITOURINARY: Positive Genitourinary Disorders, Kidney Stones and Benign Prostatic Hyperplasia; Negative Renal Disease MUSCULOSKELETAL: Negative Musculoskeletal Disorders ENDOCRINE: Positive Diabetes Mellitus Type 2; Negative Endocrine Disorders or Diabetes Mellitus Type 1 HEMATOLOGIC: Positive Blood Disorders and Clotting Problems; Negative Anemia or Sickle Cell Disease PSYCHO/SOCIAL: Positive Anxiety OTHER HISTORY: Positive Developmental Delay and Falls; Negative Autoimmune Disease, Blood Transfusions, Anesthesia Reactions or Cancer Family History FAMILY HISTORY: Positive Family Cardiac Disorders, Family Cancer and Family Surgery; Negative Family Neurologic Problems, Family Psychiatric Problems, Family Respiratory Disorders, Family Gastrointestinal Problems or Family Anesthesia Reaction Surgical History SURGICAL: Positive Angiogram; Negative Coronary Stent Social History SMOKING STATUS: Never smoker SECOND HAND EXPOSURE: No SUBSTANCE USE: does not use OCCUPATION: [employer] ED Exam Narrative Physical exam: GENERAL APPEARANCE: alert and oriented x 4, well-developed, well-nourished, no acute distress HEENT: Normocephalic, atraumatic; pupils equal, round, reactive to light; EOMI; mucous membranes pink, moist; oropharynx clear NECK: Supple LUNGS: CTABL; no wheezes, no rales, no rhonchi HEART: Regular rate, regular rhythm; normal S1, S2; no murmurs ABDOMEN: non distended; normal BS; soft, no tenderness, no guarding, no rebound; no masses, no organomegaly, no hernia BACK: no CVA tenderness EXTREMITIES: atraumatic; no edema NEUROLOGIC: awake; alert and oriented x4; cranial nerves II-XII grossly intact; no focal sensory or motor deficits PSYCHIATRIC: appropriate mood and affect SKIN: warm, dry, normal color; no rashes Course Course Course Narrative: 0139: Patient passed his PO trial. Labs are unremarkable. Patient is stable to be discharged home. Quality Measures none Orders Category Date Time Status EKG (ED ONLY) *Do not use* NOW Care 10/22/24 20:[address] chest wo con Stat Exams 10/22/24 20:00 Completed EKG (ED Only) Stat Exams 10/22/24 20:00 Ordered CBC Stat Lab 10/22/24 20:13 Completed CMP [Comprehensive Metabolic Panel] Stat Lab 10/22/24 20:13 Completed Troponin I Stat Lab 10/22/24 20:13 Completed Urinalysis, C/S if Indicated Stat Lab 10/22/24 20:36 Completed HYDROcodone*/APAP 5/325 [[place] 5/325] Med 10/23/24 00:47 Discontinued 1 tab PO X1 ONE Lidocaine 2% Viscous [Xylocaine 2% Viscous] Med 10/22/24 22:38 Discontinued 15 ml PO X1 ONE Sucralfate Susp [Carafate Susp] Med 10/22/24 22:38 Discontinued 1 gm PO X1 ONE mg Hyd/Al Hyd/Bk Susp [Maalox Susp] Med 10/22/24 22:38 Discontinued 30 ml PO X1 ONE Vital Signs Vital signs: Vital Signs Temperature 98.7 F 10/22/24 19:54 Pulse Rate 98 10/22/24 19:54 Respiratory Rate 16 10/22/24 19:54 Blood Pressure 155/92 H 10/22/24 19:54 Pulse Oximetry (%) 96 10/22/24 19:54 Oxygen Delivery Method Room Air 10/22/24 19:54 Pulse ox is 96% on room air, which is normal according to my interpretation. [facility] Patient data External records reviewed:: [facility] previous records (Per chart review, patient was seen here on 10/21/24 for a viral infection; Reviewed CT abdomen pelvis from 09/10/24, which showed a 4 mm left kidney calculus.) Clinical information provided by:: patient Social determinants that could affect healthcare access:: none Patient has the following chronic illnesses:: CHF, CAD, TAA, HTN, DM How is presenting disease/condition affected by chronic disease/condition?: e xacerbated by Evaluation data The following diagnostics were reviewed and interpreted by me:: lab results, radiology exam(s) and EKG tracing(s) Lab and/or radiology exams considered but not ordered:: none Interpretation Summary: WBC count is normal, HnH is 17.6/52.0, CMP is normal, Troponin is normal, UA is unremarkable, according to my interpretation. EKG done at 2005, sinus tachycardia, rate of 107, normal intervals, normal axis, no acute ST or T-wave changes, no acute ischemia, according to my interpretation. I have personally reviewed the radiology data and agree with the radiologist's interpretation below: [facility] Report Signed Patient: DAVID RAJPUT Record#: [id number] Birthdate: 1975 Age/Sex: 49 / M Location: [facility] Attending Dr: Ordering Physician: Fly Luis PA-C Date of Service: 10/22/24 Procedure(s): CT chest wo con Accession Number(s): [id number] cc: Deon Hand MD; Fly Luis PA-C; Akila Diaz PA-C~ Examination: CT chest, without intravenous contrast. Sagittal and coronal 2-D reconstructions. Exam date and time: October 22, 20242009 hrs. Indications: Coughing chest pain today Comparison: January 29, 2024 CTDI:vol (mGy) 16.1 DLP: (mGycm) 638 Technique: Multiple 3.0 mm axial sections of the chest to been obtained. Bone and lung density settings are obtained. Sagittal and coronal 2-D reconstructions have been obtained. Low dose protocols were performed. One or more of the following dose reduction techniques were used; automated exposure control, adjustment of the mA and/or KV according to patient size, use of iterative reconstruction technique. Findings: Aneurysmal dilatation ascending thoracic aorta AP dimension 4.6 cm Pulmonary artery segments are not enlarged No mediastinal lymphadenopathy Mild vascular congestion No pneumonia or pulmonary edema 16mm right lobe liver lesion axial image 115 Contracted gallbladder Spleen not enlarged No pancreatic mass Impression: Mild aneurysmal dilatation ascending thoracic aorta No paratracheal tracheobronchial or bronchopulmonary adenopathy No pneumonia, pulmonary edema or noncalcified pulmonary nodules 16 mm right lobe liver lesion, recommend MRI abdomen follow-up pre and postcontrast Dictated By: Deon Hand MD Signed By: <Electronically signed by Deon Hand MD in [place]> 10/22/242103 Medications Medications considered but not ordered:: none Medication administrations:: Medication Administration History Discontinued Medications Hydrocodone Bitart/Acetaminophen (Hydrocodone/Apap 5/325 Tablet) 1 tab PO X1 ONE Stop: 10/23/24 00:48 Last Admin: 10/23/24 01:35 Dose: 1 tab Documented By: DAVID Al Hydrox/Mg Hydrox/Simethicone (Mg Hyd/Al Hyd/Bk (Maalox Reg) Susp 30 Ml Udc) 30 ml PO X1 ONE Stop: 10/22/24 22:39 Last Admin: 10/22/24 23:01 Dose: 30 ml Documented By: DAVID Lidocaine HCl (Lidocaine Viscous 2% 15 Ml Udc) 15 ml PO X1 ONE Stop: 10/22/24 22:39 Last Admin: 10/22/24 23:01 Dose: 15 ml Documented By: DAVID Sucralfate (Sucralfate Susp 1 Gm/10 Ml Udc) 1 gm PO X1 ONE Stop: 10/22/24 22:39 Last Admin: 10/22/24 23:01 Dose: 1 gm Documented By: DAVID see above Consultations Consultation(s) initiated? (list below): No Diagnosis Differential Diagnosis ED Complaint MDM: chest pain, GERD, pancreatitis, gastritis Most likely diagnosis given after review of the tests above:: see below Admission Indicated Admission indicated?: not indicated Explain why admission is indicated or not indicated:: Admission criteria not indicated. Admission Request Was there a request for admission?: No Disposition Plan Disposition Plan: Discharge Discharge Attestation Discharge Attestation: The patient and all family members were given an opportunity to ask questions and understood the discharge instructions. Discharge instructions specifically effects, indications for sooner follow up or return to the emergency department, and the expected course of current diagnosis. Patient condition: Stable Medical Decision Making MDM Narrative MDM Narrative: Scribe Attestation: 10/22/24 - [place] am scribing for and in the presence of Dr. Galloway. Differential Diagnosis Differential Diagnosis: chest pain, GERD, pancreatitis, gastritis Lab Data 10/22/24 20:13 10/22/24 20:13 Labs: Lab Results 10/22/24 10/22/24 Range/Units 20:13 20:36 WBC 7.0 (3.8-10.6) Thou/mm3 RBC 5.65 (4.50-5.90) Miln/mm3 Hgb 17.6 H* (13.5-16.0) g/dL Hct 52.0 (41.0-53.0) % MCV 92 (80-100) fL MCH 31.2 (25.0-35.0) pg MCHC 33.8 (31.0-37.0) g/dl RDW Std Deviation 41.9 (35.1-43.9) fL Plt Count 244 (140-440) Thou/mm3 Neut % (Auto) 59 (37-80) % Lymph % (Auto) 27 (10-50) % [place] % (Auto) 13 H (0-12) % Eos % (Auto) 1 (0-10) % Baso % (Auto) 0 (0-2.5) % Neut # (Auto) 4.1 (1.8-7.7) Thou/mm3 Lymph # (Auto) 1.9 (1.0-4.8) Thou/mm3 [place] # (Auto) 0.9 H (0.0-0.8) Thou/mm3 Eos # (Auto) 0.1 (0.0-0.5) Thou/mm3 Baso # (Auto) 0.0 (0.0-0.2) Thou/mm3 Immature Gran # (Auto) 0.01 H (0.00-0.00) Thou/mm3 Absolute Nucleated RBC 0.00 (0.00-0.00) Thou/mm3 Immature Gran % 0 (0-0) % Nucleated RBC % 0 (0) /100 WBC Sodium 144 (136-145) mMol/L Potassium 4.0 (3.4-5.1) mMol/L Chloride 107 (98-107) mMol/L Carbon Dioxide 29.0 (20.0-31.0) mMol/L Anion Gap 8 (7-16) BUN 10 (9-23) mg/dL Creatinine 1.1 (0.6-1.3) mg/dL Estim Creat Clear Calc 93.1 (>60) mL/min eGFR > 60 (60 - ) See Note BUN/Creatinine Ratio 9 L (12-20) Ratio Glucose 105 (74-106) mg/dL Calculated Osmolality 285 (275-295) Calcium 10.0 (8.3-10.6) mg/dL Corrected Calcium 10.0 (8.5-10.1) mg/dL Total Bilirubin 0.4 (0.3-1.2) mg/dL AST 30 (0-34) U/L ALT 45 (10-49) U/L Alkaline Phosphatase 174 H (46-116) U/L Troponin I 0.485 H* (0.0-0.045) ng/mL Total Protein 7.5 (5.7-8.2) gm/dL Albumin 4.5 (3.5-5.0) gm/dL Globulin 3.0 (2.3-3.5) gm/dL Albumin/Globulin Ratio 1.5 (1.2-2.2) Ur Collection Type Clean Catch Urine Color Yellow (Lt Yel-Yel) Urine Clarity Clear (Clear/Hazy) Urine pH 5.5 (5.0-7.0) Ur Specific [place] 1.032 (1.001-1.035) Urine Protein Trace (Neg - Trace) Urine Glucose (UA) Negative (Negative) Urine Ketones Negative (Negative) Urine Blood Negative (Negative) Urine Nitrite Negative (Negative) Urine Bilirubin Negative (Negative) Urine Urobilinogen (Auto) Negative (0.0-1.0) mg/dL Ur Leukocyte Esterase Negative (Negative) Urine RBC 0 (0-3) /hpf Urine WBC 0 (0-5) /hpf Ur Squamous Epith Cells 0 (0-5) /hpf Urine Bacteria None (None) Hyaline Casts < 1 (0-1) /hpf Ur Culture Indicated? Not Indicated Discharge Plan Plan Patient Disposition: HOME (Self Care) Prescriptions/Referrals Prescriptions/Med Rec: No Action gabapentin 300 mg capsule 300 mg PO TID lisinopril 20 MG tablet 30 mg PO QDAY Qty: 0 metformin 500 mg tablet 500 mg PO HS Patient Comments: TAKE 1 TABLET BY MOUTH EVERY DAY AT BEDTIME FOR DIABETES metoprolol tartrate 100 mg tablet 100 mg PO BID Patient Comments: TAKE 1 TABLET BY MOUTH TWICE A DAY FOR BLOOD PRESSURE ropinirole 0.25 mg Tablet 0.25 mg PO HS amiodarone 200 mg Tablet 200 mg PO QDAY atorvastatin 40 mg tablet 40 mg PO HS Patient Comments: TAKE 1 TABLET BY MOUTH AT BEDTIME FOR CHOLESTEROL meclizine 25 mg tablet 25 mg PO BID PRN (Reason: Dizziness) Patient Comments: TAKE 1-2 TABLETS BY MOUTH TWICE A DAY NEEDED FOR DIZZINESS sulfamethoxazole-trimethoprim [Bactrim DS] 800-160 mg tablet 1 tab PO BID Qty: 14 0RF hydrocortisone 2.5 % cream 1 applic topical BID Qty: 28.35 0RF Rx Instructions: Stop when rash is gone; no more than 2 weeks tamsulosin [Flomax] 0.4 mg capsule 0.4 mg PO QDAY Qty: 7 0RF cefuroxime axetil 500 mg tablet 500 mg PO BID Qty: 14 0RF tamsulosin [Flomax] 0.4 mg capsule 0.4 mg PO QDAY Qty: 7 0RF furosemide 20 mg tablet 20 mg PO QDAY Ozempic 1 mg/dose (4 mg/3 mL) pen injector 1 mg SUBCUT QWEEK Rx Instructions: 1 time weekly duloxetine 30 mg capsule,delayed release(DR/EC) 30 mg PO QDAY finasteride 5 mg tablet 5 mg PO QDAY Patient Comments: TAKE 1 TABLET BY MOUTH EVERY DAY clopidogrel 75 mg tablet 75 mg PO QDAY furosemide [Lasix] 40 mg tablet 40 mg PO QDAY Qty: 14 0RF potassium chloride 20 mEq tablet extended release 20 meq PO QDAY Qty: 14 0RF azithromycin 250 mg tablet See Rx Instructions .ROUTE .COMPLEX Qty: 6 0RF Rx Instructions: For 250 mg dose pack: take 500 mg today (day 1), then 250 mg for 4 days (days 2-5) amoxicillin-pot clavulanate 875-125 mg tablet 1 tab PO BID Qty: 14 0RF doxycycline monohydrate 100 mg capsule 100 mg PO BID Qty: 14 0RF Referrals: Akila Diaz PA-C [Primary Care Provider] - In 1 week Problem List Clinical Impression: Chest pain, Abdominal pain Patient/Caregiver Discharge Instructions Education Materials: Abdominal Pain, ED Chest Pain, Uncertain Cause Print Language: [place]at[place] Stand Alone Forms: [employer] Award Info., Patient Portal Info Letter
[2024-10-22] MEDS: SUCRALFATE SUSP 1 GM/10 ML UDC PO (23:01)
[2024-10-22] MEDS: LIDOCAINE VISCOUS 2% 15 ML UDC PO (23:01)
[2024-10-22] MEDS: MG HYD/AL HYD/SIME (Maalox Reg) SUSP 30 ML UDC PO (23:01)
[2024-10-22 23:02] VITALS: BP 129/92; PULSE 93; RESP 16; O2SAT 97
[2024-10-23 00:39] VITALS: BP 137/87; PULSE 86; RESP 18; TEMP 37.2; O2SAT 97
[2024-10-23] MEDS: HYDROcodone/APAP 5/325 TABLET 1 TAB PO (01:35)
--- NOTE | 2024-10-23 01:36 | PC.NURSE ---
Patient passed PO trial with no nausea or vomiting.
[2024-10-23 01:59] LABS: Troponin I 0.485 ng/mL (0.0-0.045)
[2024-10-23 02:00] VITALS: BP 121/90; PULSE 85; RESP 18; O2SAT 95
== END 2024-10-23 02:01 | disposition home or self-care (01) ==
PROVIDERS: Physician Assistant; Emergency Provider Emergency Medicine; PCP Physician Assistant
DX: I71.21 Aneurysm of the ascending aorta, without rupture (principal); K76.9 Liver disease, unspecified; I11.0 Hypertensive heart disease with heart failure; I50.9 Heart failure, unspecified; I25.10 Atherosclerotic heart disease of native coronary artery without angina pectoris; E78.00 Pure hypercholesterolemia, unspecified; I25.2 Old myocardial infarction
CPT/HCPCS: 36415; 71250; 80053; 81001; 84484; 85025; 93005; 99284; J3490; A9270

== ENCOUNTER 2024-11-22 19:08 | Emergency (ER) | payer MEDICAID, SELFPAY ==
[2024-11-22 19:09] VITALS: BMI 38.2
[2024-11-22 19:20] VITALS: BP 144/78; PULSE 88; RESP 18; TEMP 36.6; O2SAT 97
--- NOTE | 2024-11-22 19:22 | PD.EDRME ---
Rapid Medical Screening Exam RME Arrival date/time: 11/22/24 19:08 Chief Complaint: General Adult/Misc Complain Vital signs: Vital Signs Temperature 97.9 F 11/22/24 19:20 Pulse Rate 88 11/22/24 19:20 Respiratory Rate 18 11/22/24 19:20 Blood Pressure 144/78 H 11/22/24 19:20 Pulse Oximetry (%) 97 11/22/24 19:20 Oxygen Delivery Method Room Air 11/22/24 19:20 RME Narrative: Patient reports heavy rectal bleeding today. Hx of factor V Leiden on anticoagulant.
[2024-11-22 19:56] LABS: Basophils % (Auto) 0 % (0-2.5); Eosinophils # (Auto) 0.1 Thou/mm3 (0.0-0.5); Eosinophils % (Auto) 2 % (0-10); Hematocrit 46.7 % (41.0-53.0); Hemoglobin 15.5 g/dL (13.5-16.0); Immature Granulocytes % (Auto) 0 % (0-0); Immature Granulocytes Auto 0.01 Thou/mm3 (0.00-0.00); Lymphocytes # (Auto) 1.5 Thou/mm3 (1.0-4.8); Lymphocytes % (Auto) 29 % (10-50); Mean Corpuscular HGB Conc 33.2 g/dl (31.0-37.0); Mean Corpuscular Volume 91 fL (80-100); Monocytes # (Auto) 0.8 Thou/mm3 (0.0-0.8); Monocytes % (Auto) 15 % (0-12); Neutrophils # (Auto) 2.8 Thou/mm3 (1.8-7.7); Neutrophils % (Auto) 55 % (37-80); Nucleated Red Blood Cell % 0 /100 WBC (0); Platelet Count 230 Thou/mm3 (140-440); RDW Standard Deviation 40.4 fL (35.1-43.9); Red Blood Count 5.16 Miln/mm3 (4.50-5.90); White Blood Count 5.2 Thou/mm3 (3.8-10.6)
[2024-11-22 20:10] LABS: Partial Thromboplastin Time 26.2 Seconds (22.0-36.0); Prothrombin Time 10.9 Seconds (9.0-12.2)
[2024-11-22 20:13] LABS: Alanine Aminotransferase 31 U/L (10-49); Albumin, Serum 3.8 gm/dL (3.5-5.0); Albumin/Globulin Ratio 1.5 (1.2-2.2); Alkaline Phosphatase 134 U/L (46-116); Anion Gap 9 (7-16); Aspartate Amino Transferase 26 U/L (0-34); BUN/Creatinine Ratio 12 Ratio (12-20); Bilirubin,Total 0.3 mg/dL (0.3-1.2); Blood Urea Nitrogen 12 mg/dL (9-23); Calcium (Corrected) 9.2 mg/dL (8.5-10.1); Carbon Dioxide 24.5 mMol/L (20.0-31.0); Chloride 111 mMol/L (98-107); Estimated Creatinine Clearance 99.4 mL/min (>60); Globulin 2.5 gm/dL (2.3-3.5); Glucose 142 mg/dL (74-106); Osmolality,Calculated 288 (275-295); Potassium 4.1 mMol/L (3.4-5.1); Sodium 144 mMol/L (136-145); Total Protein 6.3 gm/dL (5.7-8.2); eGFR > 60 See Note
[2024-11-22 20:36] VITALS: BP 157/82; PULSE 79; RESP 19; TEMP 36.8; O2SAT 97
[2024-11-22 21:00] VITALS: BP 147/59; PULSE 76; RESP 18; TEMP 36.7; O2SAT 98
--- NOTE | 2024-11-22 21:07 | PD.EDADULT ---
ED General RME/HPI General Chief complaint: General Adult/Misc Complain Stated complaint: RECTAL BLEEDING HEMORRHOIDS Source: patient Arrival date/time: 11/22/24 19:08 Mode of arrival: ambulatory Limitations: no limitations RME / HPI RME / HPI narrative: Dr. Germain?s Main ED Evaluation: 49-year-old male with a history of coagulopathy on apixaban with history of frequent bright red blood per rectum presents to the emergency department with passage of large volume of maroon and blood in stool this afternoon. He states he had a spell of pain in his lower abdomen that radiated to his rectum followed by passage of large volume of stool. He had no control of it and was expressed in his pants. He states it is a larger volume than he has had before therefore comes to the emergency department. He says his last rectal bleeding was towards the end of last year where he was told it was due to his hemorrhoids. He was not giving any hemorrhoid treatments or creams at that time. Patient denies history of colonoscopy. Related Data Home Medications ?Medication ?Instructions ?Recorded ?Confirmed lisinopril 20 mg tablet 30 mg PO QDAY #0 tabs 08/22/17 08/07/24 metoprolol tartrate 100 mg tablet 100 mg PO BID 03/14/21 08/07/24 metformin 500 mg tablet 500 mg PO HS 06/28/21 08/07/24 ropinirole 0.25 mg tablet 0.25 mg PO HS 10/03/21 08/07/24 amiodarone 200 mg tablet 200 mg PO QDAY 04/05/22 08/07/24 atorvastatin 40 mg tablet 40 mg PO HS 09/04/22 08/07/24 meclizine 25 mg tablet 25 mg PO BID PRN Dizziness 09/04/22 08/07/24 clopidogrel 75 mg tablet 75 mg PO QDAY 10/24/23 08/07/24 duloxetine 30 mg capsule,delayed 30 mg PO QDAY 10/24/23 08/07/24 release finasteride 5 mg tablet 5 mg PO QDAY 10/24/23 08/07/24 furosemide 20 mg tablet 20 mg PO QDAY 10/24/23 08/07/24 semaglutide 1 mg/dose (4 mg/3 mL) 1 mg subcut QWEEK 10/24/23 08/07/24 subcutaneous pen injector (Ozempic) gabapentin 300 mg capsule 300 mg PO TID 08/07/24 08/07/24 Previous Rx's ?Medication ?Instructions ?Recorded sulfamethoxazole 800 1 tab PO BID #14 tabs 02/06/24 mg-trimethoprim 160 mg tablet (Bactrim DS) furosemide 40 mg tablet (Lasix) 40 mg PO QDAY #14 tabs 04/18/24 potassium chloride 20 mEq 20 meq PO QDAY #14 tabs 04/18/24 tablet,extended release hydrocortisone 2.5 % topical cream 1 applic topical BID #28.35 grams 05/18/24 tamsulosin 0.4 mg capsule (Flomax) 0.4 mg PO QDAY #7 caps 07/12/24 cefuroxime axetil 500 mg tablet 500 mg PO BID #14 tabs 08/15/24 tamsulosin 0.4 mg capsule (Flomax) 0.4 mg PO QDAY #7 caps 08/23/24 azithromycin 250 mg tablet See Rx Instructions PO .COMPLEX #6 09/28/24 tabs amoxicillin 875 mg-potassium 1 tab PO BID #14 tabs 10/10/24 clavulanate 125 mg tablet doxycycline monohydrate 100 mg 100 mg PO BID #14 caps 10/10/24 capsule Allergies Allergy/AdvReac Type Severity Reaction Status Date / Time No Known Allergies Allergy Verified 10/20/24 23:50 Review of Systems Review of Systems Systems Reviewed: All systems reviewed, normal except as documented ED Exam Narrative Physical exam: GENERAL APPEARANCE: AxOx4, generally well-appearing, no acute distress. HEENT: NC, AT. MMM. EOMI, clear conjunctiva, oropharynx clear. NECK: Supple without lymphadenopathy. No stiffness or restricted ROM. HEART: Normal rate and regular rhythm, normal S1/S1, no m/r/g LUNGS: CTAB, moving air well. No crackles or wheezes are heard. ABDOMEN: Soft, nontender, nondistended with good bowel sounds heard. Rectal: No mass, no fissure, brown-yellow stool no blood. BACK: No midline C/T/L spine pain or deformity, No CVAT, no obvious deformity. EXTREMITIES: Without cyanosis, clubbing or edema. MUSCULOSKELETAL: FROM of all major joints, no chest tenderness NEUROLOGICAL: Grossly nonfocal. Alert and oriented, moving all 4 extremities. CN not formally tested but appear grossly intact. Observed to ambulate with normal gait. Skin: Warm and dry without any rash. General Limitations: Present no limitations Course Quality Measures none Orders Category Date Time Status CBC Stat Lab 11/22/24 19:47 Completed CMP [Comprehensive Metabolic Panel] Stat Lab 11/22/24 19:47 Completed Hemoglobin and Hematocrit Stat Lab 11/22/24 23:15 Completed Partial Thromboplastin Time Stat Lab 11/22/24 19:47 Completed Prothrombin Time with INR Stat Lab 11/22/24 19:47 Completed Vital Signs Vital signs: Vital Signs Temperature 97.9 F 11/22/24 19:20 Pulse Rate 88 11/22/24 19:20 Respiratory Rate 18 11/22/24 19:20 Blood Pressure 144/78 H 11/22/24 19:20 Pulse Oximetry (%) 97 11/22/24 19:20 Oxygen Delivery Method Room Air 11/22/24 19:20 [facility] Patient data External records reviewed:: [facility] previous records Clinical information provided by:: patient Social determinants that could affect healthcare access:: none Patient has the following chronic illnesses:: coagulopathy on apixaban with history of frequent bright red blood per rectum How is presenting disease/condition affected by chronic disease/condition?: uneffected by Evaluation data The following diagnostics were reviewed and interpreted by me:: lab results Lab and/or radiology exams considered but not ordered:: None Interpretation Summary: See narrative Medications Medications considered but not ordered:: None Medication administrations:: As above, if any Consultations Consultation(s) initiated? (list below): No Diagnosis Differential Diagnosis ED Complaint MDM: External hemorrhoids, internal hemorrhoids, lower GI bleeding, upper GI ble Most likely diagnosis given after review of the tests above:: See below Admission Indicated Admission indicated?: not indicated Explain why admission is indicated or not indicated:: As per narrative Admission Request Was there a request for admission?: No Disposition Plan Disposition Plan: Discharge Discharge Attestation Discharge Attestation: The patient and all family members were given an opportunity to ask questions and understood the discharge instructions. Discharge instructions specifically effects, indications for sooner follow up or return to the emergency department, and the expected course of current diagnosis. Patient condition: Stable Medical Decision Making MDM Narrative MDM Narrative: Mr. Mcnulty is well-known to me who presents with history of recurrent lower GI bleeding with another episode today. Hemoglobin is stable. Rectal exam is otherwise unremarkable. He does not have external hemorrhoids notable on exam. He does complain initially of lower abdominal pain radiating to the rectum with is less consistent of internal hemorrhoids. He is he has a stable hemoglobin, is not actively bleeding care right now, he is appropriate outpatient follow-up. I do feel that given he is on anticoagulation it would be beneficial to consider an outpatient colonoscopy. Patient does note he has his new his appointment with his primary care provider tomorrow, Sunday. Scribe Attestation: I, Erica Long, am scribing for and in the presence of Dr. Germain. Provider Notation: Although this document has been carefully reviewed, there may still be some phonetic and other typographical errors. These errors are purely grammatical due to imperfections in the software program and should not be construed in any way to compromise the substance of the patient's medical care during this visit. Differential Diagnosis Differential Diagnosis: External hemorrhoids, internal hemorrhoids, lower GI bleeding, upper GI ble Medical Records Medical records reviewed: Yes I reviewed the patient's medical records. Lab Data Lab results reviewed: Yes I reviewed the patient's lab results. 11/22/24 23:15 11/22/24 19:47 Labs: Lab Results 11/22/24 11/22/24 Range/Units 19:47 23:15 WBC 5.2 (3.8-10.6) Thou/mm3 RBC 5.16 (4.50-5.90) Miln/mm3 Hgb 15.5 15.3 (13.5-16.0) g/dL Hct 46.7 46.0 (41.0-53.0) % MCV 91 (80-100) fL MCH 30.0 (25.0-35.0) pg MCHC 33.2 (31.0-37.0) g/dl RDW Std Deviation 40.4 (35.1-43.9) fL Plt Count 230 (140-440) Thou/mm3 Neut % (Auto) 55 (37-80) % Lymph % (Auto) 29 (10-50) % Kimball % (Auto) 15 H (0-12) % Eos % (Auto) 2 (0-10) % Baso % (Auto) 0 (0-2.5) % Neut # (Auto) 2.8 (1.8-7.7) Thou/mm3 Lymph # (Auto) 1.5 (1.0-4.8) Thou/mm3 Kimball # (Auto) 0.8 (0.0-0.8) Thou/mm3 Eos # (Auto) 0.1 (0.0-0.5) Thou/mm3 Baso # (Auto) 0.0 (0.0-0.2) Thou/mm3 Immature Gran # (Auto) 0.01 H (0.00-0.00) Thou/mm3 Absolute Nucleated RBC 0.00 (0.00-0.00) Thou/mm3 Immature Gran % 0 (0-0) % Nucleated RBC % 0 (0) /100 WBC PT 10.9 (9.0-12.2) Seconds INR 1.0 (0.9-1.3) APTT 26.2 (22.0-36.0) Seconds Sodium 144 (136-145) mMol/L Potassium 4.1 (3.4-5.1) mMol/L Chloride 111 H (98-107) mMol/L Carbon Dioxide 24.5 (20.0-31.0) mMol/L Anion Gap 9 (7-16) BUN 12 (9-23) mg/dL Creatinine 1.0 (0.6-1.3) mg/dL Estim Creat Clear Calc 99.4 (>60) mL/min eGFR > 60 (60 - ) See Note BUN/Creatinine Ratio 12 (12-20) Ratio Glucose 142 H (74-106) mg/dL Calculated Osmolality 288 (275-295) Calcium 9.0 (8.3-10.6) mg/dL Corrected Calcium 9.2 (8.5-10.1) mg/dL Total Bilirubin 0.3 (0.3-1.2) mg/dL AST 26 (0-34) U/L ALT 31 (10-49) U/L Alkaline Phosphatase 134 H (46-116) U/L Total Protein 6.3 (5.7-8.2) gm/dL Albumin 3.8 (3.5-5.0) gm/dL Globulin 2.5 (2.3-3.5) gm/dL Albumin/Globulin Ratio 1.5 (1.2-2.2) Discharge Plan Plan Patient Disposition: HOME (Self Care) Prescriptions/Referrals Prescriptions/Med Rec: No Action gabapentin 300 mg capsule 300 mg PO TID lisinopril 20 MG tablet 30 mg PO QDAY Qty: 0 metformin 500 mg tablet 500 mg PO HS Patient Comments: TAKE 1 TABLET BY MOUTH EVERY DAY AT BEDTIME FOR DIABETES metoprolol tartrate 100 mg tablet 100 mg PO BID Patient Comments: TAKE 1 TABLET BY MOUTH TWICE A DAY FOR BLOOD PRESSURE ropinirole 0.25 mg Tablet 0.25 mg PO HS amiodarone 200 mg Tablet 200 mg PO QDAY atorvastatin 40 mg tablet 40 mg PO HS Patient Comments: TAKE 1 TABLET BY MOUTH AT BEDTIME FOR CHOLESTEROL meclizine 25 mg tablet 25 mg PO BID PRN (Reason: Dizziness) Patient Comments: TAKE 1-2 TABLETS BY MOUTH TWICE A DAY NEEDED FOR DIZZINESS sulfamethoxazole-trimethoprim [Bactrim DS] 800-160 mg tablet 1 tab PO BID Qty: 14 0RF hydrocortisone 2.5 % cream 1 applic topical BID Qty: 28.35 0RF Rx Instructions: Stop when rash is gone; no more than 2 weeks tamsulosin [Flomax] 0.4 mg capsule 0.4 mg PO QDAY Qty: 7 0RF cefuroxime axetil 500 mg tablet 500 mg PO BID Qty: 14 0RF tamsulosin [Flomax] 0.4 mg capsule 0.4 mg PO QDAY Qty: 7 0RF furosemide 20 mg tablet 20 mg PO QDAY Ozempic 1 mg/dose (4 mg/3 mL) pen injector 1 mg SUBCUT QWEEK Rx Instructions: 1 time weekly duloxetine 30 mg capsule,delayed release(DR/EC) 30 mg PO QDAY finasteride 5 mg tablet 5 mg PO QDAY Patient Comments: TAKE 1 TABLET BY MOUTH EVERY DAY clopidogrel 75 mg tablet 75 mg PO QDAY furosemide [Lasix] 40 mg tablet 40 mg PO QDAY Qty: 14 0RF potassium chloride 20 mEq tablet extended release 20 meq PO QDAY Qty: 14 0RF azithromycin 250 mg tablet See Rx Instructions .ROUTE .COMPLEX Qty: 6 0RF Rx Instructions: For 250 mg dose pack: take 500 mg today (day 1), then 250 mg for 4 days (days 2-5) amoxicillin-pot clavulanate 875-125 mg tablet 1 tab PO BID Qty: 14 0RF doxycycline monohydrate 100 mg capsule 100 mg PO BID Qty: 14 0RF Referrals: Akila Diaz PA-C [Primary Care Provider] - In 1 week Problem List Clinical Impression: Chronic lower gastrointestinal bleeding Patient/Caregiver Discharge Instructions Education Materials: Bleeding Gastrointestinal Additional Instructions: Follow-up with your primary care doctor, Ms. Diaz, for recheck and possible referral to gastroenterology for colonoscopy. You can return to the emergency department sooner symptoms worsen or if you notice any new or concerning issues. Print Language: Samoan Stand Alone Forms: [employer] Info., Patient Portal Info Letter
[2024-11-22 23:00] VITALS: BP 133/58; PULSE 71; RESP 18; TEMP 36.7; O2SAT 96
[2024-11-22 23:35] LABS: Hemoglobin 15.3 g/dL (13.5-16.0)
[2024-11-23 00:40] VITALS: BP 133/93; PULSE 70; RESP 18; TEMP 36.8; O2SAT 96
== END 2024-11-23 00:42 | disposition home or self-care (01) ==
PROVIDERS: Physician Assistant; Emergency Provider Emergency Medicine; PCP Physician Assistant
DX: K92.1 Melena (principal)
CPT/HCPCS: 36415; 80053; 85014; 85018; 85025; 85610; 85730; 99283

== ENCOUNTER 2024-12-29 13:28 | Emergency (ER) | payer MEDICAID, SELFPAY ==
[2024-12-29 13:31] VITALS: BMI 40.2
--- NOTE | 2024-12-29 13:40 | XR_ITS ---
Examination: Duplex scan of the upper extremity, unilateral left Date and time of exam: December 29, 2024 1419 hrs. Indications: Right upper extremity swelling pain and bruising beginning 6 days ago post angiogram Technique: Duplex scan of the extremity veins using B-mode/grayscale imaging and Doppler spectral analysis and color flow Attention is directed to internal echogenicity, compression and augmentation involving these veins, color flow assessment, spectral analysis Findings: Major deep venous structures in the extremity demonstrate normal course and caliber. There is no evidence of deep vein thrombosis. Normal color flow and spectral analysis Impression: Negative for DVT..
[2024-12-29 13:42] VITALS: BP 138/83; PULSE 83; RESP 18; TEMP 36.9; O2SAT 97
--- NOTE | 2024-12-29 15:22 | PD.EDUPEX ---
Upper Extremity Injury RME/HPI General Chief Complaint: Extremity Injury, Upper Stated Complaint: RUE SWELLING/PAIN/HEMATOMA S/P LHC/ R/O BLOOD CLOT Time Seen by Provider: 12/29/24 13:34 Arrival date/time: 12/29/24 13:28 49-year-old male presents to the emergency department today patient had a cardiac catheterization at [facility] patient reports bruising to the right wrist patient was sent to rule out DVT Limitations: no limitations Related Data Home Medications ?Medication ?Instructions ?Recorded ?Confirmed lisinopril 20 mg tablet 30 mg PO QDAY #0 tabs 08/22/17 08/07/24 metoprolol tartrate 100 mg tablet 100 mg PO BID 03/14/21 08/07/24 metformin 500 mg tablet 500 mg PO HS 06/28/21 08/07/24 ropinirole 0.25 mg tablet 0.25 mg PO HS 10/03/21 08/07/24 amiodarone 200 mg tablet 200 mg PO QDAY 04/05/22 08/07/24 atorvastatin 40 mg tablet 40 mg PO HS 09/04/22 08/07/24 meclizine 25 mg tablet 25 mg PO BID PRN Dizziness 09/04/22 08/07/24 clopidogrel 75 mg tablet 75 mg PO QDAY 10/24/23 08/07/24 duloxetine 30 mg capsule,delayed 30 mg PO QDAY 10/24/23 08/07/24 release finasteride 5 mg tablet 5 mg PO QDAY 10/24/23 08/07/24 furosemide 20 mg tablet 20 mg PO QDAY 10/24/23 08/07/24 semaglutide 1 mg/dose (4 mg/3 mL) 1 mg subcut QWEEK 10/24/23 08/07/24 subcutaneous pen injector (Ozempic) gabapentin 300 mg capsule 300 mg PO TID 08/07/24 08/07/24 Previous Rx's ?Medication ?Instructions ?Recorded sulfamethoxazole 800 1 tab PO BID #14 tabs 02/06/24 mg-trimethoprim 160 mg tablet (Bactrim DS) furosemide 40 mg tablet (Lasix) 40 mg PO QDAY #14 tabs 04/18/24 potassium chloride 20 mEq 20 meq PO QDAY #14 tabs 04/18/24 tablet,extended release hydrocortisone 2.5 % topical cream 1 applic topical BID #28.35 grams 05/18/24 tamsulosin 0.4 mg capsule (Flomax) 0.4 mg PO QDAY #7 caps 07/12/24 cefuroxime axetil 500 mg tablet 500 mg PO BID #14 tabs 08/15/24 tamsulosin 0.4 mg capsule (Flomax) 0.4 mg PO QDAY #7 caps 08/23/24 azithromycin 250 mg tablet See Rx Instructions PO .COMPLEX #6 09/28/24 tabs amoxicillin 875 mg-potassium 1 tab PO BID #14 tabs 10/10/24 clavulanate 125 mg tablet doxycycline monohydrate 100 mg 100 mg PO BID #14 caps 10/10/24 capsule Allergies Allergy/AdvReac Type Severity Reaction Status Date / Time No Known Allergies Allergy Verified 12/29/24 13:36 Review of Systems Review of Systems Systems Reviewed: All systems reviewed, normal except as documented Constitutional Constitutional: Reports system reviewed and no additional complaints, except as documented, Denies fever(s) and Denies headache(s) Eyes Eyes: Reports system reviewed and no additional complaints, except as documented and Denies blurry vision ENT Ears, Nose, Mouth, and Throat: Reports system reviewed and no additional complaints, except as documented, Denies headache(s), Denies nasal congestion and Denies nasal discharge Cardiovascular Cardiovascular: Reports system reviewed and no additional complaints, except as documented, Denies chest pain and Denies dyspnea Respiratory Respiratory: Reports system reviewed and no additional complaints, except as documented, Denies chest congestion, Denies cough and Denies dyspnea Gastrointestinal Gastrointestinal: Reports system reviewed and no additional complaints, except as documented and Denies abdominal pain Integumentary/Breasts Skin/Breast: Reports system reviewed and no additional complaints, except as documented, Denies rash and Reports other (Bruising right forearm) Neurologic Neurologic: Reports system reviewed and no additional complaints, except as documented, Reports as per HPI and Denies headache(s) Past Medical History Past Medical History NEUROLOGIC: Negative Neurological Disorders CARDIAC: Positive Cardiac Disorders, Myocardial Infarction, Angina, Coronary Artery Disease, Atherosclerotic Heart Disease, Hypercholesterolemia, Congestive Heart Failure, Edema, Deep Vein Thrombosis and Hypertension RESPIRATORY: Positive Asthma, Pneumonia, Pulmonary Embolism and Sleep Apnea; Negative Chronic Obstructive Pulmonary Disease (COPD) GASTROINTESTINAL: Positive Gastrointestinal Disorders, Gastroesophageal Reflux Disease and Obesity GENITOURINARY: Positive Genitourinary Disorders, Kidney Stones and Benign Prostatic Hyperplasia; Negative Renal Disease MUSCULOSKELETAL: Negative Musculoskeletal Disorders ENDOCRINE: Positive Diabetes Mellitus Type 2; Negative Endocrine Disorders or Diabetes Mellitus Type 1 HEMATOLOGIC: Positive Blood Disorders and Clotting Problems; Negative Anemia or Sickle Cell Disease PSYCHO/SOCIAL: Positive Anxiety OTHER HISTORY: Positive Developmental Delay and Falls; Negative Autoimmune Disease, Blood Transfusions, Anesthesia Reactions or Cancer Family History FAMILY HISTORY: Positive Family Cardiac Disorders, Family Cancer and Family Surgery; Negative Family Neurologic Problems, Family Psychiatric Problems, Family Respiratory Disorders, Family Gastrointestinal Problems or Family Anesthesia Reaction Surgical History SURGICAL: Positive Angiogram; Negative Coronary Stent Social History SMOKING STATUS: Never smoker SECOND HAND EXPOSURE: No SUBSTANCE USE: does not use OCCUPATION: [employer] ED Exam General Limitations: Present no limitations General appearance: Present alert and in no apparent distress Head Head exam: Present atraumatic, normocephalic and normal inspection Eye Eye exam: Present normal appearance, PERRL and EOMI ENT ENT exam: Present normal exam, normal oropharynx and mucous membranes moist Neck Neck exam: Present normal inspection, full ROM and trachea midline Chest Chest inspection: Present normal inspection and symmetric chest wall rise Respiratory Respiratory exam: Present normal lung sounds bilaterally Cardiovascular Cardiovascular exam: Present regular rate, normal rhythm and normal heart sounds Abdominal Exam Abdominal exam: Present soft and normal bowel sounds Extremities Exam Extremities exam: Present full ROM, tenderness (Right forearm bruising) and normal capillary refill; Absent joint swelling Back Exam Back exam: Present normal inspection and full ROM Neurological Exam Neurological exam: Present alert, oriented X3 and CN II-XII intact Psychiatric Psychiatric exam: Present normal affect and normal mood Skin Skin exam: Present warm, dry and other (Right forearm reason) Course Quality Measures none Orders Category Date Time Status US venous doppler UE RT Stat Exams 12/29/24 13:40 Completed Vital Signs Vital signs: Vital Signs Temperature 98.5 F 12/29/24 13:42 Pulse Rate 83 12/29/24 13:42 Respiratory Rate 18 12/29/24 13:42 Blood Pressure 138/83 H 12/29/24 13:42 Pulse Oximetry (%) 97 12/29/24 13:42 Oxygen Delivery Method Room Air 12/29/24 13:42 O2 saturation 97% room air wnl Extremity Injury MDM Narrative MDM Narrative:: 49-year-old male presents to the emergency department today patient had a cardiac catheterization at [facility] patient reports bruising to the right wrist patient was sent to rule out DVT Clinically I do not suspect patient has DVT rather I believe the patient has localized bruising patient is on blood thinners Ultrasound obtained no acute DVT noted Patient discharged home in no distress to follow-up with primary care doctor in the next 24 to 48 hours and for any worsening symptoms to return to the ER immediately Patient data External records reviewed:: [facility] previous records Clinical information provided by:: patient Social determinants that could affect healthcare access:: none Patient has the following chronic illnesses:: None How is presenting disease/condition affected by chronic disease/condition?: no chronic disease Evaluation data The following diagnostics were reviewed and interpreted by me:: other (specify) (N/A) Lab and/or radiology exams considered but not ordered:: Consider not ordered Interpretation Summary: N/A Medications / Prescriptions Medications or Prescriptions considered but not ordered:: Given no meds Medication administrations:: Given no meds Consultations Consultation(s) initiated? (list below): No Diagnosis Upper Extremity Injury Differential Diagnosis: sprain and strain of wrist and fracture of wrist Most likely diagnosis given after review of the tests above:: Wrist bruising Admission Indicated Admission indicated?: not indicated Admission Request Was there a request for admission?: No Disposition Plan Disposition Plan: Discharge Discharge Attestation Discharge Attestation: The patient and all family members were given an opportunity to ask questions and understood the discharge instructions. Discharge instructions specifically effects, indications for sooner follow up or return to the emergency department, and the expected course of current diagnosis. Patient condition: Stable Discharge Plan Plan Patient Disposition: HOME (Self Care) Disposition Comment: Stable Prescriptions/Referrals Prescriptions/Med Rec: No Action gabapentin 300 mg capsule 300 mg PO TID lisinopril 20 MG tablet 30 mg PO QDAY Qty: 0 metformin 500 mg tablet 500 mg PO HS Patient Comments: TAKE 1 TABLET BY MOUTH EVERY DAY AT BEDTIME FOR DIABETES metoprolol tartrate 100 mg tablet 100 mg PO BID Patient Comments: TAKE 1 TABLET BY MOUTH TWICE A DAY FOR BLOOD PRESSURE ropinirole 0.25 mg Tablet 0.25 mg PO HS amiodarone 200 mg Tablet 200 mg PO QDAY atorvastatin 40 mg tablet 40 mg PO HS Patient Comments: TAKE 1 TABLET BY MOUTH AT BEDTIME FOR CHOLESTEROL meclizine 25 mg tablet 25 mg PO BID PRN (Reason: Dizziness) Patient Comments: TAKE 1-2 TABLETS BY MOUTH TWICE A DAY NEEDED FOR DIZZINESS sulfamethoxazole-trimethoprim [Bactrim DS] 800-160 mg tablet 1 tab PO BID Qty: 14 0RF hydrocortisone 2.5 % cream 1 applic topical BID Qty: 28.35 0RF Rx Instructions: Stop when rash is gone; no more than 2 weeks tamsulosin [Flomax] 0.4 mg capsule 0.4 mg PO QDAY Qty: 7 0RF cefuroxime axetil 500 mg tablet 500 mg PO BID Qty: 14 0RF tamsulosin [Flomax] 0.4 mg capsule 0.4 mg PO QDAY Qty: 7 0RF furosemide 20 mg tablet 20 mg PO QDAY Ozempic 1 mg/dose (4 mg/3 mL) pen injector 1 mg SUBCUT QWEEK Rx Instructions: 1 time weekly duloxetine 30 mg capsule,delayed release(DR/EC) 30 mg PO QDAY finasteride 5 mg tablet 5 mg PO QDAY Patient Comments: TAKE 1 TABLET BY MOUTH EVERY DAY clopidogrel 75 mg tablet 75 mg PO QDAY furosemide [Lasix] 40 mg tablet 40 mg PO QDAY Qty: 14 0RF potassium chloride 20 mEq tablet extended release 20 meq PO QDAY Qty: 14 0RF azithromycin 250 mg tablet See Rx Instructions .ROUTE .COMPLEX Qty: 6 0RF Rx Instructions: For 250 mg dose pack: take 500 mg today (day 1), then 250 mg for 4 days (days 2-5) amoxicillin-pot clavulanate 875-125 mg tablet 1 tab PO BID Qty: 14 0RF doxycycline monohydrate 100 mg capsule 100 mg PO BID Qty: 14 0RF Problem List Clinical Impression: Traumatic ecchymosis of right forearm Patient/Caregiver Discharge Instructions Education Materials: Bruises (Contusions) Additional Instructions: Please follow up with your primary care doctor in the next 24-48hrs for any worsening symptoms return here immediately Print Language: Icelandic Stand Alone Forms: [employer] Award Info., Patient Portal Info Letter PA/HALF BACKER Supervising Physician PA/HALF BACKER Supervising Physician: Dr. dc
[2024-12-29 15:26] VITALS: BP 138/68; PULSE 89; RESP 18; TEMP 36.6; O2SAT 95
== END 2024-12-29 15:35 | disposition home or self-care (01) ==
LOC: SERX 15:46
PROVIDERS: Emergency Provider Emergency Medicine
DX: S50.11XA Contusion of right forearm, initial encounter (principal); X58.XXXA Exposure to other specified factors, initial encounter
CPT/HCPCS: 93971; 99284

== ENCOUNTER 2025-01-07 00:26 | Observation (INO) | payer MEDICAID, SELFPAY ==
[2025-01-07] VITALS (24 sets, daily range): BP systolic 90–152; BP diastolic 59–107; PULSE 61–84; RESP 10–99; TEMP 36.4–36.6; O2SAT 95–100; BMI 40.4
--- NOTE | 2025-01-07 00:39 | XR_ITS ---
Examination: PA lateral chest 2 views Technique: Upright AP lateral chest 2 views Exam date and time: January 07, 2025 0105 hrs. Indications: Coughing shortness of breath today Findings: Mild prominence cardiac contour Mild vascular congestion No lobar pneumonia The osseous structures are intact Impression: Mild vascular congestion
--- NOTE | 2025-01-07 00:41 | PD.EDRME ---
Rapid Medical Screening Exam RME Arrival date/time: 01/07/25 00:26 49-year-old male past medical history of diabetes, hypertension, and CHF presents emergency department complaining of cough, runny nose, body aches, and pain when taking a deep breath. Chief Complaint: Shortness of Breath/Dyspnea Time Seen by Provider: 01/07/25 00:34 Vital signs: Vital Signs Temperature 97.6 F 01/07/25 00:32 Pulse Rate 71 01/07/25 00:32 Respiratory Rate 19 01/07/25 00:32 Blood Pressure 112/64 01/07/25 00:32 Pulse Oximetry (%) 98 01/07/25 00:32 Oxygen Delivery Method Room Air 01/07/25 00:32 Vital signs reviewed by provider: Yes
[2025-01-07] MEDS: IPRATROPIUM RT 0.5 MG/ 2.5 ML NEBU INH (00:56)
[2025-01-07] MEDS: ALBUTEROL RT 2.5 MG/0.5 ML NEBU 5 MG INH (00:56)
[2025-01-07 02:25] LABS: Basophils % (Auto) 1 % (0-2.5); Eosinophils # (Auto) 0.1 Thou/mm3 (0.0-0.5); Eosinophils % (Auto) 2 % (0-10); Hematocrit 47.2 % (41.0-53.0); Hemoglobin 15.5 g/dL (13.5-16.0); Immature Granulocytes % (Auto) 0 % (0-0); Immature Granulocytes Auto 0.01 Thou/mm3 (0.00-0.00); Lymphocytes # (Auto) 2.5 Thou/mm3 (1.0-4.8); Lymphocytes % (Auto) 38 % (10-50); Mean Corpuscular HGB Conc 32.8 g/dl (31.0-37.0); Mean Corpuscular Hemoglobin 29.6 pg (25.0-35.0); Mean Corpuscular Volume 90 fL (80-100); Monocytes # (Auto) 0.7 Thou/mm3 (0.0-0.8); Monocytes % (Auto) 11 % (0-12); Neutrophils # (Auto) 3.2 Thou/mm3 (1.8-7.7); Neutrophils % (Auto) 48 % (37-80); Nucleated Red Blood Cell % 0 /100 WBC (0); Platelet Count 221 Thou/mm3 (140-440); RDW Standard Deviation 39.8 fL (35.1-43.9); Red Blood Count 5.24 Miln/mm3 (4.50-5.90); White Blood Count 6.6 Thou/mm3 (3.8-10.6)
[2025-01-07 02:38] LABS: INR 1.2 (0.9-1.3); Partial Thromboplastin Time 33.7 Seconds (22.0-36.0); Prothrombin Time 13.3 Seconds (9.0-12.2)
[2025-01-07 02:43] LABS: B-Type Natriuretic Peptide 124 pg/mL (0-100)
[2025-01-07 03:10] LABS: Alanine Aminotransferase 48 U/L (10-49); Albumin, Serum 3.9 gm/dL (3.5-5.0); Albumin/Globulin Ratio 1.5 (1.2-2.2); Alkaline Phosphatase 153 U/L (46-116); Anion Gap 9 (7-16); Aspartate Amino Transferase 30 U/L (0-34); BUN/Creatinine Ratio 9 Ratio (12-20); Bilirubin,Total 0.3 mg/dL (0.3-1.2); Blood Urea Nitrogen 11 mg/dL (9-23); Calcium 9.4 mg/dL (8.3-10.6); Calcium (Corrected) 9.5 mg/dL (8.5-10.1); Chloride 109 mMol/L (98-107); Creatinine (Component) 1.2 mg/dL (0.6-1.3); Estimated Creatinine Clearance 85.3 mL/min (>60); Globulin 2.6 gm/dL (2.3-3.5); Glucose 133 mg/dL (74-106); Osmolality,Calculated 290 (275-295); Potassium 4.3 mMol/L (3.4-5.1); Sodium 145 mMol/L (136-145); Total Protein 6.5 gm/dL (5.7-8.2); eGFR > 60 See Note
[2025-01-07 03:13] LABS: Troponin I 0.606 ng/mL (0.0-0.045)
[2025-01-07 06:11] LABS: Troponin I 0.562 ng/mL (0.0-0.045)
--- NOTE | 2025-01-07 06:22 | PD.EDSOB ---
ED SOB =RME/HPI General Chief Complaint: Shortness of Breath/Dyspnea Stated Complaint: SOB, PAIN WITH BREATHING Time Seen by Provider: 01/07/25 00:34 Arrival date/time: 01/07/25 00:26 RME / HPI RME / HPI Narrative: 01/07/25 00:26 49-year-old male past medical history of diabetes, hypertension, and CHF presents emergency department complaining of cough, runny nose, body aches, and pain when taking a deep breath. The previous is from the [facility] note DR. CHUNG MAIN ED EVALUATION: Patient is a 49-year-old diabetic history of pulmonary emboli and DVT comes in with shortness of breath and chest discomfort for the past 12 hours which she states is unchanging and consistently present. He has no fever vomiting diarrhea does have a cough maybe some bodyaches no sputum production. He says his chief of pediatric urology Dr. Ortega in [place]. Patient has similar presentations in the past on reviewing the old charts. Related Data Home Medications ?Medication ?Instructions ?Recorded ?Confirmed lisinopril 20 mg tablet 30 mg PO QDAY #0 tabs 08/22/17 08/07/24 metoprolol tartrate 100 mg tablet 100 mg PO BID 03/14/21 08/07/24 metformin 500 mg tablet 500 mg PO HS 06/28/21 08/07/24 ropinirole 0.25 mg tablet 0.25 mg PO HS 10/03/21 08/07/24 amiodarone 200 mg tablet 200 mg PO QDAY 04/05/22 08/07/24 atorvastatin 40 mg tablet 40 mg PO HS 09/04/22 08/07/24 meclizine 25 mg tablet 25 mg PO BID PRN Dizziness 09/04/22 08/07/24 clopidogrel 75 mg tablet 75 mg PO QDAY 10/24/23 08/07/24 duloxetine 30 mg capsule,delayed 30 mg PO QDAY 10/24/23 08/07/24 release finasteride 5 mg tablet 5 mg PO QDAY 10/24/23 08/07/24 furosemide 20 mg tablet 20 mg PO QDAY 10/24/23 08/07/24 semaglutide 1 mg/dose (4 mg/3 mL) 1 mg subcut QWEEK 10/24/23 08/07/24 subcutaneous pen injector (Ozempic) gabapentin 300 mg capsule 300 mg PO TID 08/07/24 08/07/24 Previous Rx's ?Medication ?Instructions ?Recorded sulfamethoxazole 800 1 tab PO BID #14 tabs 02/06/24 mg-trimethoprim 160 mg tablet (Bactrim DS) furosemide 40 mg tablet (Lasix) 40 mg PO QDAY #14 tabs 04/18/24 potassium chloride 20 mEq 20 meq PO QDAY #14 tabs 04/18/24 tablet,extended release hydrocortisone 2.5 % topical cream 1 applic topical BID #28.35 grams 05/18/24 tamsulosin 0.4 mg capsule (Flomax) 0.4 mg PO QDAY #7 caps 07/12/24 cefuroxime axetil 500 mg tablet 500 mg PO BID #14 tabs 08/15/24 tamsulosin 0.4 mg capsule (Flomax) 0.4 mg PO QDAY #7 caps 08/23/24 azithromycin 250 mg tablet See Rx Instructions PO .COMPLEX #6 09/28/24 tabs amoxicillin 875 mg-potassium 1 tab PO BID #14 tabs 10/10/24 clavulanate 125 mg tablet doxycycline monohydrate 100 mg 100 mg PO BID #14 caps 10/10/24 capsule Allergies Allergy/AdvReac Type Severity Reaction Status Date / Time No Known Allergies Allergy Verified 12/29/24 13:36 Review of Systems Review of Systems Narrative Review of Systems: Constitutional: DENIES; Fevers Eyes: DENIES; Loss of vision Head/Ear/Nose: DENIES; Loss of hearing Throat: DENIES; Dysphagia Cardiovascular: SEE HPI +chest discomfort. DENIES; syncope Respiratory: SEE HPI +Shortness of breath, cough Gastrointestinal: DENIES; Rectal bleeding or melena. Genitourinary: DENIES; Dysuria (painful or difficult urination) Musculoskeletal: DENIES; Arthralgia (pain in a joint),; Skin: DENIES; Rash Neurological: DENIES; Loss of function or movement Psychiatric: DENIES; recent major life stressor, emotional problem, illicit drug use or abuse Endocrinology: DENIES; Weight change Hematologic/Lymphatic: DENIES; Abnormal bruising Allergic/Immunologic: DENIES; Urticaria (hives) Past Medical History Past Medical History CARDIAC: Positive Cardiac Disorders, Myocardial Infarction, Angina, Coronary Artery Disease, Atherosclerotic Heart Disease, Hypercholesterolemia, Congestive Heart Failure, Edema, Deep Vein Thrombosis and Hypertension RESPIRATORY: Positive Asthma, Pneumonia, Pulmonary Embolism and Sleep Apnea GASTROINTESTINAL: Positive Gastrointestinal Disorders, Gastroesophageal Reflux Disease and Obesity GENITOURINARY: Positive Genitourinary Disorders, Kidney Stones and Benign Prostatic Hyperplasia ENDOCRINE: Positive Diabetes Mellitus Type 2 HEMATOLOGIC: Positive Blood Disorders and Clotting Problems PSYCHO/SOCIAL: Positive Anxiety OTHER HISTORY: Positive Developmental Delay and Falls Family History FAMILY HISTORY: Positive Family Cardiac Disorders, Family Cancer and Family Surgery Surgical History SURGICAL: Positive Angiogram Social History SMOKING STATUS: Never smoker SECOND HAND EXPOSURE: No SUBSTANCE USE: does not use 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 The patient is non-toxic, in no apparent distress and appears healthy with a patent airway, no respiratory distress and has no apparent circulatory problems. Head & Scalp: Normocephalic, atraumatic. Face: Appears normal and is without lesions, deformity. Ears: Left external pinna appears normal. Right external pinna appears normal. Eyes: The sclera is anicteric. No obvious photophobia. The Left and Right Orbit/Lid/Conjunctiva appears normal without swelling, discoloration or injection. Nose: The nose is without deformity, discharge or tenderness; Throat: Appears normal. The mucous membranes are pink and moist without exudates, redness or mass seen. The tongue appears normal. Neck: The neck is supple and no apparent mass or adenopathy. Chest: The chest wall is normal in size and symmetry and has no chest wall tenderness or crepitus. The patient displays normal ventilator effort without retractions, accessory muscle use and has adequate air movement bilaterally with no wheezes and no rales. Cardiovascular: Regular rate and rhythm; No murmurs, rubs, or gallops; Gastrointestinal: The abdomen appears normal. No obvious hernias or mass. The abdomen is soft and benign, non-distended, with no pain, no guarding and no rebound tenderness. Bowel sounds are present and normal sounding. No CVA tenderness. Genitourinary: Back/Spine: Nontender normal inspection Extremities/Musculoskeletal/lymphatic: The bilateral upper and lower extremities are warm. There is no evidence of arterial insufficiency. There is 3+ pitting edema which is presumably chronic with hyperpigmentary changes. The patient spontaneously moves bilateral upper and lower extremities with no pain and no limitation of movement. There is no apparent, injury or trauma. Skin: The skin is warm, dry and intact. No rashes. No petechia. No purpura. No abnormal bruising. The color is appropriate with no cyanosis. Mental status/Psychiatric: Mental status is appropriate for age. The patient has no apparent delusions, visual hallucinations, no apparent audible hallucinations. The patient has no apparent suicidal thoughts/ideation and no apparent homicidal thoughts/ideation. Neurological: The patient is awake, alert, interactive, cordial, cooperative and is oriented to name and situation. The patient follows commands and answers historical question with no impairment. There is no visual disturbance apparent. The pupils are equal and reactive bilaterally with normal eye movements and no diplopia The bilateral upper and lower extremities have normal strength, normal range of motion and normal functioning. The gait, station and balance evidently at baseline patient is able to sit up and reported able to walk Course Quality Measures none Orders Category Date Time Status Bedside COVID-19 Antigen Test NOW Care 01/07/25 00:39 Completed Bedside Influenza A&B Antigen Test NOW Care 01/07/25 00:39 Completed EKG (ED ONLY) *Do not use* NOW Care 01/07/25 00:39 Completed EKG (ED Only) Stat Exams 01/07/25 00:39 Ordered XR chest 2V Stat Exams 01/07/25 00:39 Completed BNP [B-Type Natriuretic Peptide] Stat Lab 01/07/25 01:45 Completed CBC Stat Lab 01/07/25 01:45 Completed Comprehensive Metabolic Panel Stat Lab 01/07/25 01:45 Completed Drug Screen,Urine Stat Lab 01/07/25 10:10 Completed PT [Prothrombin Time with INR] Stat Lab 01/07/25 01:45 Completed PTT [Partial Thromboplastin Time] Stat Lab 01/07/25 01:45 Completed Troponin I Stat Lab 01/07/25 01:45 Completed Troponin I Stat Lab 01/07/25 11:06 Completed Troponin I Urgent Lab 01/07/25 04:40 Completed ALBUTEROL RT 0.5ml [Proventil Rt 0.5ml] Med 01/07/25 00:41 Discontinued 5 mg INH X1 ONE Ipratropium [place] Rt Tiana [Atrovent Rt Tiana] Med 01/07/25 00:41 Discontinued 0.5 mg INH X1 ONE Sodium Chloride Rt Tiana 0.9% [NS Rt Tiana 0.9%] Med 01/07/25 00:41 Active 3 ml INH PRN PRN Vital Signs Vital signs: Vital Signs Temperature 97.6 F 01/07/25 00:32 Pulse Rate 71 01/07/25 00:32 Respiratory Rate 19 01/07/25 00:32 Blood Pressure 112/64 01/07/25 00:32 Pulse Oximetry (%) 98 01/07/25 00:32 Oxygen Delivery Method Room Air 01/07/25 00:32 Pulse ox is 98% on room air which is adequate. Shortness of Breath / Dyspnea MDM Narrative MDM Narrative:: Patient 49-year-old diabetic comes in with chest pain and shortness of breath. She renomegaly in the room he is sleeping lying flat with no dyspnea no shortness Earl O2 sat is 99%. Appears to be a poor historian with a paucity of details of his past history. Medical workup today reveals white count of 6.6 hemoglobin of 15.5 platelet count of 221 PT/INR 13.3 and 1.2 and a PTT of 33.7. Sodium 145 potassium 4.3 chloride 109 CO2 of 27 BUN is 11 creatinine 1.2 troponin initially was 0.606 and a follow-up at 440 this morning reveals to be 0.562 and review of his previous troponins are almost always elevated although the 0.606 is higher than many of his previous past troponins which are often in the 0.3 0.4 range. BNP came back at 124. Chest x-ray shows a small streak in the right lower lung field with either atelectasis or small infiltrate. It is a little bit more pronounced than previous chest x-rays raising the question is of some chronic process is a little worse or actually new. This chest x-ray was read by myself. Patient remains comfortable emergency department the resident hospitalist was contacted asked to come down evaluate this patient at 0726 hrs. At 1112 hrs. I have not heard from the resident to find out what the plan is as this patient does have chronic troponin elevations but does have acute symptoms and probably has some cognitive difficulties and not a good historian. Resident dey came down at 1120 hrs. we discussed the case at great length and she is already discussed this with her attending getting a third troponin. I discussed with her the multiple risk factors involved in the previous chronically elevated troponins with no clear explanation of why. His chief of pediatric urology is not at this facility and recommended call Dr. Ortega and extend the workup accordingly. The resident took the information is going to consult with their attending. Note that click the box to be admitted to the hospital but at 1125 it is unclear if the hospitalist team is accepting. Later spoke with Dr. Monique samayoa and he agreed to admit the patient. Patient data External records reviewed:: [facility] previous records (I reviewed ED visit on 12/29/2024 ) Clinical information provided by:: patient Social determinants that could affect healthcare access:: none Patient has the following chronic illnesses:: Hypertension, diabetes, hyperlipidemia, BPH, coagulopathy on apixaban, h/o bright red blood per rectum How is presenting disease/condition affected by chronic disease/condition?: exacerbated by Evaluation data The following diagnostics were reviewed and interpreted by me:: lab results, radiology exam(s) and EKG tracing(s) (Sinus rhythm, rate 69, no STEMI. ) Lab and/or radiology exams considered but not ordered:: None Interpretation Summary: Ordering Physician: Natalia PeaceINSURANCE VERIFICATION REPRESENTATIVE)Jean Date of Service: 01/07/25 Procedure(s): XR chest 2V Accession Number(s): [id number] cc: Deon Hand MD; Natalia ROBERTS),Jean PIERCE; Akila Diaz PA-C~ Examination: PA lateral chest 2 views Technique: Upright AP lateral chest 2 views Exam date and time: January 07, 2025 0105 hrs. Indications: Coughing shortness of breath today Findings: Mild prominence cardiac contour Mild vascular congestion No lobar pneumonia The osseous structures are intact Impression: Mild vascular congestion Dictated By: Deon Hand MD Signed By: <Electronically signed by Deon Hand MD in OV> 01/07/25 0856 Medications / Prescriptions Medications or Prescriptions considered but not ordered:: None Medication administrations:: Medication Administration History Acetaminophen (Acetaminophen 325 Mg Tablet) 650 mg PO Q6H PRN PRN Reason: Fever >100.3 or pain Stop: 02/06/25 11:31 Enoxaparin Sodium (Enoxaparin Sod Inj 40 Mg/0.4 Ml Syringe) 40 mg SC QDAY TUAN Stop: 01/21/25 11:44 Last Admin: 01/07/25 12:25 Dose: 40 mg Documented By: TM Ondansetron HCl (Ondansetron Inj 2 Mg/Ml Inj 2 Ml) 4 mg IV Q6H PRN; Protocol PRN Reason: NAUSEA OR VOMITING Stop: 02/06/25 11:31 Sodium Chloride (Sodium Chloride Rt Tiana 0.9% 3 Ml Nebu) 3 ml INH PRN PRN PRN Reason: SOLN Stop: 02/06/25 00:40 Discontinued Medications Albuterol (Albuterol Rt 2.5 Mg/0.5 Ml Nebu) 5 mg INH X1 ONE Stop: 01/07/25 00:42 Last Admin: 01/07/25 00:56 Dose: 5 mg Documented By: NE Ipratropium [place] (Ipratropium Rt 0.5 Mg/ 2.5 Ml Nebu) 0.5 mg INH X1 ONE Stop: 01/07/25 00:42 Last Admin: 01/07/25 00:56 Dose: 0.5 mg Documented By: NE Ketorolac Tromethamine (Ketorolac Inj 30 Mg/Ml Vial) 15 mg IVP X1 ONE Stop: 01/07/25 11:38 Last Admin: 01/07/25 12:34 Dose: 15 mg Documented By: TM See above Consultations Consultation(s) initiated? (list below): Yes Consultation #1 (Physician, Specialty, Details): I spoke with resident Dr. Dey working with Dr. Whatley. Discussed patients PMHx, HPI, ED course, exam findings, labs, and radiology results. The hospitalist will come evaluate the patient in the ED. Time: 07:26 Diagnosis Shortness of Breath Differential Diagnosis: acute exacerbation of chronic obstructive airways disease, congestive heart failure, community acquired pneumonia and asthma with exacerbation Most likely diagnosis given after review of the tests above:: Chest pain Coronary artery disease Elevated troponin CHF Diabetes Admission Indicated Admission indicated?: indicated Admission Request Was there a request for admission?: Yes Admission Attestation Admission request attestation: Discussed case with [] from Hospitalist service regarding admission. Discussed patients ED course, exam findings, labs, and radiology results. The Hospitalist [agrees,declines] to accept the patient for admission. Disposition Plan Disposition Plan: Admit Discharge Plan Plan Patient Disposition: Admit Acute Care w/in Hospital Disposition Comment: Hospitalist to admit Problem List Clinical Impression: Chest pain, Coronary artery disease, Elevated troponin, CHF (congestive heart failure), Diabetes
[2025-01-07 10:29] LABS: Amphetamine/Methamp Scrn,U Negative (Negative); Barbiturate Screen,Urine Negative (Negative); Benzodiazepines Screen,Urine Negative (Negative); Benzoylecgonine Screen, Ur Negative (Negative); Fentanyl Screen,Urine Negative (Negative); Opiate Screen,Urine Negative (Negative); THC Screen,Urine Negative (Negative)
--- NOTE | 2025-01-07 11:36 | ECHO_ITS ---
Transthoracic Echo Report Ht (in): 65 Wt (lb): 243 Exam Location: Echo Lab Status: Emergency [employer] Laboratory Manager: NIA Leroy^^^^ Indications: Procedure Performed: BP: 127 / 63 HR: 77 Technical Quality: Fair MEASUREMENTS (Male / Female) Normal Values 2D ECHO LV Diastolic Diameter PLAX 3.9 cm 4.2 - 5.9 / 3.9 - 5.3 cm LV Systolic Diameter PLAX 2.7 cm IVS Diastolic Thickness 1.2 cm 0.6 - 1.0 / 0.6 - 0.9 cm LVPW Diastolic Thickness 1.0 cm 0.6 - 1.0 / 0.6 - 0.9 cm LV Relative Wall Thickness 0.6 LVOT Diameter 1.7 cm Aortic Root Diameter 3.3 cm LA Systolic Diameter LX 3.5 cm 3.0 - 4.0 / 2.7 - 3.8 cm LV Ejection Fraction MOD BP 61.1 % >= 55 % LV Cardiac Index MOD BP 1423.9 cm?/min?m? LV Ejection Fraction MOD 4C 66.5 % LV Cardiac Index MOD 4C 1938.6 cm?/min?m? LV Ejection Fraction 4C AL 71.1 % LV Cardiac Index 4C AL 2133.7 cm?/min?m? LV Ejection Fraction MOD 2C 53.8 % LV Cardiac Index MOD 2C 949.3 cm?/min?m? LV Ejection Fraction 2C AL 55.6 % LV Cardiac Index 2C AL 1015.9 cm?/min?m? LA Volume Index 13.8 cm?/m? 16 - 28 cm?/m? Ascending Aorta Diameter 3.7 cm DOPPLER AV Peak Velocity 142.0 cm/s AV Peak Gradient 8.1 mmHg AV Mean Gradient 5.0 mmHg AV Velocity Time Integral 31.8 cm AI Peak Velocity 177.0 cm/s AI Peak Gradient 12.5 mmHg AI Pressure Half Time 382.0 ms LVOT Peak Velocity 136.0 cm/s LVOT Peak Gradient 7.4 mmHg LVOT Velocity Time Integral 35.0 cm LVOT Cardiac Index 2655.4 cm?/min?m? AV Area Cont Eq vti 2.5 cm? AV Area Cont Eq pk 2.2 cm? MV Area PHT 3.8 cm? MR Peak Velocity 337.0 cm/s MR Peak Gradient 45.4 mmHg Mitral E Point Velocity 91.1 cm/s Mitral A Point Velocity 75.9 cm/s Mitral E to A Ratio 1.2 LV E' Lateral Velocity 9.0 cm/s Mitral E to LV E' Lateral Ratio 10.1 LV E' Septal Velocity 8.1 cm/s Mitral E to LV E' Septal Ratio 11.2 TR Peak Velocity 231.3 cm/s TR Peak Gradient 21.4 mmHg PV Peak Velocity 112.0 cm/s PV Peak Gradient 5.0 mmHg RVOT Peak Velocity 42.9 cm/s FINDINGS Left Ventricle Normal left ventricular size, wall thickness, systolic function with no obvious regional wall motion abnormalities.there is grade II diastolic dysfunction of the left ventricle (pseudonormal filling pattern). The left ventricular ejection fraction is normal, estimated at 55-60%. Right Ventricle The right ventricle is normal in size and systolic function. The estimated right ventricular systolic pressure, 25 mmHg. Left Atrium The left atrium is normal by two-dimensional, color flow and Doppler imaging with no structural abnormalities, no thrombus formation present. Right Atrium The right atrium is normal by two-dimensional imaging, color flow and Doppler imaging with no structural abnormalities, no thrombus formation present. Atrial Septum The interatrial septum appears normal with no evidence of a shunt. Aorta The aorta is normal by two-dimensional, color flow and Doppler interrogation. Mitral Valve Mild mitral annular calcification. Mild mitral regurgitation. Aortic Valve Trace to mild aortic valve regurgitation. Aortic valve sclerosis. Tricuspid Valve There is mild tricuspid valve regurgitation. Pulmonic Valve Trivial pulmonic valve regurgitation. Vessels The pulmonary artery appears normal. The inferior vena cava pulmonary and hepatic veins appear normal. Pericardium The pericardium is normal to two-dimensional and color flow Doppler interrogation. CONCLUSIONS indication: chest pain LV appears normal EF 55-60%. Diastolic Dysfunction I present. RV appears normal RVSP 25 mmHg MV has mild MR & MAC AOV has trace-mild AI looks sclerotic. TV has mild TR Valerie Albarran (Electronically Signed) Final Date: 07 January 2025 16:42
[2025-01-07 11:55] LABS: Troponin I 0.553 ng/mL (0.0-0.045)
[2025-01-07] MEDS: ENOXAPARIN SOD INJ 40 MG/0.4 ML SYRINGE SC (12:25)
[2025-01-07] MEDS: KETOROLAC INJ 30 MG/ML VIAL 15 MG IVP (12:34)
--- NOTE | 2025-01-07 13:39 | PC.CC ---
Patient is a 49 year-old male who presents to the hospital for Atypical Chest Pain. Gege CARMONA made [id number] contact with patient. ASW introduced self, role, and reason for visit. Patient appeared alert and oriented to self, location, and situation. Patient was pleasant and engaged in initial assessment. Patient confirmed information on demographics and reports to living with roommate, Diana Warner. Patient reports that should something happen to him and he is unable to make his own medical decisions his medial decision maker would be his friend, Ethan Chavira . Patient reports he does not have a [employer] Directive, POLST, or POA. At home patient uses a cane and walker to ambulate. Patient is independent with ADLs; however, he uses a CPAP machine at night to sleep. Patient receives primary care with Akila Diaz and pharmacy for prescription medications is [facility]. Upon discharge patient plans to return home. protective services case worker to follow up with any discharge needs.
--- NOTE | 2025-01-07 15:04 | ESHP_ITS ---
<Statement entered by Chace Whatley MD - 01/10/25 07:51> I reviewed above note and agree with findings and plans. I have also personally examined the patient with medicine team and went over assessment and plan with medical team including recruiting internship and resident physician. <Statement entered by Vinita Dey MD - 01/07/25 16:15> I discussed with and supervised my co-resident involved in the care of this patient. I agree with the assessment and plan as documented above. Patient is a 49 year old male with PMH of Factor V Leiden mutation with PE and DVT on chronic anticoagulation?/history of IVC filter?, DM2, HTN, CAD and HFpEF followed by Dr. Ortega, AYLEEN and BPH who presents to the ED for atypical chest pain. Pain started after dinner yesterday and described as constant, generalized, worst with breathing and upon palpation. Was diagnosed with pleurisy at [facility] a week ago and prescribed aspirin and ibuprofen, but did not take ibuprofen at home. Upon physical exam, patient is in no acute distress, lying flat and breathing comfortably on room air, non-tachypneic or tachycardic. Endorses pain on palpation over chest. Patient labs unremarkable except for troponin at 0.6 which was downtrending; patient with chronic troponinemia. CXR is unremarkable. Patient does not appear to be in acute heart failure exacerbation and his chest pain is atypical and reproducible. Differential diagnosis for atypical chest pain and troponinemia likely pleurisy, costochondritis, chronic pulmonary embolism in the setting of Factor V and history of PE. Will get echo, EKG, and cardiology consult. [facility] pending. Will also obtain records from [facility]. Vinita Dey MD PGY-3 Documentation for date of: 01/07/25 HPI History of Present Illness Chief complaint: pain with breathing History of present illness: Misbah Mcnulty is 49 yr male with PMH of DVT, PE with factor V Leiden mutation, type 2 diabetes mellitus, hypertension, HFpEF (EF of 60-65%), CAD, AYLEEN, BPH with stent (?) who presented to [facility] ED today due to atypical chest pain that occurs with deep breathing. Patient stated that yesterday evening pain was worse after having dinner. Stated that the pain is generalized in the chest, last for couple hours, worse with walking, a crushing pain 10/10. Pain radiates to the hands causing them to be frozen , back, and legs. Nothing relieves the pain. He was discharged from [facility] about a week ago due to similar symptoms. He was diagnosed with pleurisy and discharged with aspirin and ibuprofen. Patient's roommate was at bedside who was also providing history. She stated that patient has not been compliant with taking ibuprofen. He was seen by Dr. Smalls for workup of seizure which was negative. He started him on gabapentin for diabetic neuropathy. States that he follows manufacturing project engineer Dr. Ortega. He is not able to recall proper medical history. Denies any headache, abdominal pain, diarrhea, constipation. He is compliant with his CPAP machine. Occasionally wakes up in the middle of the night still gasping for air. In the ED, vitals were stable. Labs significant forMildly elevated troponin 0.606 which down trended to 0.562. Chest x-ray showed mild vascular congestion. Patient was admitted for observation of atypical chest pain. PMH: as noted above PSH: Mesh placed in the left leg in 2023 FamHx: Mother , no known history. Father alive, history of multiple clots. Social: Currently unemployed. Lives with a roommate who was present during history taking. Denies any smoking, drinking, drug use. Meds: Amiodarone 200 mg daily, atorvastatin 40 mg daily, clopidogrel 75 mg daily, duloxetine 30 mg daily, finasteride 5 mg daily, furosemide 20 mg daily, gabapentin 300 mg 3 times daily, lisinopril 30 mg daily, metformin 500 mg daily, Ozempic, tamsulosin 0.4 mg. Allergies: NKDA Review of Systems Review of Systems Systems Reviewed: All systems reviewed, normal except as documented Exam Vital Signs Temp Pulse Resp BP Pulse Ox O2 Del Method 97.5 F 64 16 132/75 H 99 Room Air 01/07/25 12:52 01/07/25 12:54 01/07/25 12:54 01/07/25 12:52 01/07/25 12:52 01/07/25 12:52 Narrative Exam General: Middle-age male, obese, mild distress, cooperative HEENT: NCAT, No JVD noted. Mucosa moist. Pupils are equal and reactive to light bilaterally Cardiovascular: Normal S1 and S2. Regular rate and rhythm. Respiratory: Lungs are clear to auscultation bilaterally. No wheezing or crackles heard. Abdomen: Soft, nontender, not distended, normal bowel sounds. Skin: Warm to touch, dry, no rashes noted Musculoskeletal: No gross injuries. Able to move all 4 extremities. +1 pitting edema, pain to palpation of the chest. Neuro: Alert and oriented x3. No focal neuro deficits. Psych: Normal affect/mood. Relies on roommate to provide medical information. Results: Labs 01/07/25 01:45 01/07/25 01:45 Labs: Short CBC 01/07/25 Range/Units 01:45 WBC 6.6 (3.8-10.6) Thou/mm3 Hgb 15.5 (13.5-16.0) g/dL Hct 47.2 (41.0-53.0) % Plt Count 221 (140-440) Thou/mm3 BMP 01/07/25 01:45 Sodium 145 Potassium 4.3 Chloride 109 H Carbon Dioxide 27.0 BUN 11 Creatinine 1.2 Glucose 133 H Calcium 9.4 Cardiac Enzymes 01/07/25 01/07/25 01/07/25 Range/Units 01:45 04:40 11:06 Troponin I 0.606 H* 0.562 H* 0.553 H* (0.0-0.045) ng/mL Liver Function 01/07/25 Range/Units 01:45 Total Bilirubin 0.3 (0.3-1.2) mg/dL AST 30 (0-34) U/L ALT 48 (10-49) U/L Alkaline Phosphatase 153 H (46-116) U/L Albumin 3.9 (3.5-5.0) gm/dL Quality Measures Quality Measures none Medications Home Medications and Allergies Home Medications ?Medication ?Instructions ?Recorded ?Confirmed ?Type lisinopril 20 mg tablet 30 mg PO QDAY #0 tabs 08/07/24 History metoprolol tartrate 100 mg tablet 100 mg PO BID 08/07/24 History metformin 500 mg tablet 500 mg PO HS 06/28/21 History ropinirole 0.25 mg tablet 0.25 mg PO HS 10/03/2108/07 History amiodarone 200 mg tablet 200 mg PO QDAY 04/05/2207/14 History atorvastatin 40 mg tablet 40 mg PO HS 09/04/22 4 History meclizine 25 mg tablet 25 mg PO BID PRN Dizziness 1 08/07/24 History clopidogrel 75 mg tablet 75 mg PO QDAY 10/24/2308/07 History duloxetine 30 mg capsule,delayed 30 mg PO QDAY 3 08/07/24 History release finasteride 5 mg tablet 5 mg PO QDAY 10/24/23 History furosemide 20 mg tablet 20 mg PO QDAY 10/24/2308/07 History semaglutide 1 mg/dose (4 mg/3 mL) 1 mg subcut QWEEK 08/07/24 History subcutaneous pen injector (Ozempic) gabapentin 300 mg capsule 300 mg PO TID 08/07/2408/07 History Allergies Allergy/AdvReac Type Severity Reaction Status Date / Time No Known Allergies Allergy Verified 12/29/24 13:36 Visit Medications Acetaminophen (Acetaminophen 325 Mg Tablet) 650 mg PO Q6H PRN PRN Reason: Fever >100.3 or pain Stop: 02/06/25 11:31 Enoxaparin Sodium (Enoxaparin Sod Inj 40 Mg/0.4 Ml Syringe) 40 mg SC QDAY TUAN Stop: 01/21/25 11:44 Last Admin: 01/07/25 12:25 Dose: 40 mg Ondansetron HCl (Ondansetron Inj 2 Mg/Ml Inj 2 Ml) 4 mg IV Q6H PRN; Protocol PRN Reason: NAUSEA OR VOMITING Stop: 02/06/25 11:31 Sodium Chloride (Sodium Chloride Rt Tiana 0.9% 3 Ml Nebu) 3 ml INH PRN PRN PRN Reason: SOLN Stop: 02/06/25 00:40 Discontinued Medications Albuterol (Albuterol Rt 2.5 Mg/0.5 Ml Nebu) 5 mg INH X1 ONE Stop: 01/07/25 00:42 Last Admin: 01/07/25 00:56 Dose: 5 mg Ipratropium [place] (Ipratropium Rt 0.5 Mg/ 2.5 Ml Nebu) 0.5 mg INH X1 ONE Stop: 01/07/25 00:42 Last Admin: 01/07/25 00:56 Dose: 0.5 mg Ketorolac Tromethamine (Ketorolac Inj 30 Mg/Ml Vial) 15 mg IVP X1 ONE Stop: 01/07/25 11:38 Last Admin: 01/07/25 12:34 Dose: 15 mg Assessment & Plan Plan Misbah Mcnulty is 49 yr male with PMH of DVT, PE with factor V Leiden mutation, type 2 diabetes mellitus, hypertension, HFpEF (EF of 60-65%), CAD, AYLEEN, BPH with stent (?) who presented to [facility] ED today due to atypical chest pain that occurs with deep breathing. Patient was admitted for observation of atypical chest pain. #Atypical chest pain Crushing pain that involves chest wall that is tender to palpation, exacerbated with walking, last for couple hours, nothing relieves pain. Troponins 0.606 then down trended to 0.562 in the ED. ?Echo pending ? Consult cardiology for recommendations ? Trend troponin x 1 ? IV ketorolac 15 mg as needed for pain #History of type 2 diabetes On admission initial glucose . Last A1c 5.7 on 10/25/23. Patient takes Christiano 500 mg daily for diabetes at home. -Held home medications -Bedside blood glucose checks ACHS -Insulin lispro sliding scale -Carb consistent low diet -A1c pending #Hx hypertension #Hx hyperlipidemia # Hx BPH (?) #Hx of factor V Leiden mutation #Hx AYLEEN -Resumed amiodarone 200 mg daily ? IV Lasix 20 mg daily ? Gabapentin 300 mg 3 times daily ? Lisinopril 30 mg daily ? Use CPAP nightly Other med recs pending Health maintenance: Dispo: tele, atypical chest pain DVT prophylaxis: Lovenox CODE STATUS: Full code Diet: CHO The patient's management plan was discussed with my attending physician Dr. Whatley and senior Dr. Dey. Shaunna Davis, PGY-1
--- NOTE | 2025-01-07 18:03 | PC.NURSE ---
PROVIDED PT A DINNER TRAY AT THIS TIME. BS WITHING NORMAL LIMITS.
--- NOTE | 2025-01-07 18:51 | PC.NURSE ---
BED ASSIGNED AT 1845, THIS RN CALLED AT 1849 FOR REPORT, NO NURSE AVAILABLE AT THIS TIME TO TAKE REPORT, ASKED TO CALL BACK AT A LATER TIME
[2025-01-07] MEDS: FUROSEMIDE INJ 10 MG/ML VIAL 2 ML 20 MG IVP (20:34)
[2025-01-07] MEDS: GABAPENTIN 300 MG CAPSULE PO (22:14)
[2025-01-07] MEDS: Lisinopril 20 MG TABLET 30 MG PO (22:15)
[2025-01-08] VITALS (11 sets, daily range): BP systolic 121–153; BP diastolic 61–93; PULSE 56–100; RESP 9–99; TEMP 35.7–36.3; O2SAT 95–99; BMI 41.5
[2025-01-08 05:48] LABS: Basophils % (Auto) 0 % (0-2.5); Eosinophils # (Auto) 0.2 Thou/mm3 (0.0-0.5); Eosinophils % (Auto) 3 % (0-10); Hematocrit 44.8 % (41.0-53.0); Hemoglobin 14.8 g/dL (13.5-16.0); Immature Granulocytes % (Auto) 0 % (0-0); Immature Granulocytes Auto 0.01 Thou/mm3 (0.00-0.00); Lymphocytes # (Auto) 1.9 Thou/mm3 (1.0-4.8); Lymphocytes % (Auto) 28 % (10-50); Mean Corpuscular Hemoglobin 29.7 pg (25.0-35.0); Mean Corpuscular Volume 90 fL (80-100); Monocytes % (Auto) 14 % (0-12); Neutrophils # (Auto) 3.6 Thou/mm3 (1.8-7.7); Neutrophils % (Auto) 54 % (37-80); Nucleated Red Blood Cell % 0 /100 WBC (0); RDW Standard Deviation 39.3 fL (35.1-43.9); Red Blood Count 4.99 Miln/mm3 (4.50-5.90); White Blood Count 6.8 Thou/mm3 (3.8-10.6)
[2025-01-08] MEDS: GABAPENTIN 300 MG CAPSULE PO ×2 (05:57→14:09)
--- NOTE | 2025-01-08 06:12 | EKG_ITS ---
[facility] Test Date: 2025-01-08 Pat Name: DAVID RAJPUT [facility] Associate: ODILIAMo : 1975 Requested By: Balbina Chase Order Number: [id number] Reading MD: Balbina Chase Measurements Intervals Young Rate: 66 P: 52 LA: 182 QRS: 48 QRSD: 101 T: 2 QT: 388 QTc: 409 Interpretive Statements SINUS RHYTHM NONSPECIFIC T-WAVE ABNORMALITY Compared to ECG 09/10/2024 10:31:30 T-wave abnormality now present ST (T wave) deviation no longer present /store/S0/[id number].pdf
[2025-01-08 06:18] LABS: Alanine Aminotransferase 36 U/L (10-49); Albumin, Serum 3.4 gm/dL (3.5-5.0); Albumin/Globulin Ratio 1.5 (1.2-2.2); Alkaline Phosphatase 129 U/L (46-116); Anion Gap 8 (7-16); Aspartate Amino Transferase 30 U/L (0-34); BUN/Creatinine Ratio 12 Ratio (12-20); Bilirubin,Total 0.5 mg/dL (0.3-1.2); Blood Urea Nitrogen 14 mg/dL (9-23); Calcium 8.9 mg/dL (8.3-10.6); Calcium (Corrected) 9.4 mg/dL (8.5-10.1); Chloride 107 mMol/L (98-107); Creatinine (Component) 1.2 mg/dL (0.6-1.3); Estimated Creatinine Clearance 85.3 mL/min (>60); Globulin 2.2 gm/dL (2.3-3.5); Glucose 87 mg/dL (74-106); Magnesium 1.8 mg/dL (1.6-2.6); Osmolality,Calculated 282 (275-295); Potassium 4.8 mMol/L (3.4-5.1); Sodium 142 mMol/L (136-145); Total Protein 5.6 gm/dL (5.7-8.2); eGFR > 60 See Note
[2025-01-08 06:29] LABS: Glucose Estimated Average 111 mg/dL (80-131); Hemoglobin A1C 5.5 % Hgb (4.8-6.0)
[2025-01-08] MEDS: KETOROLAC INJ 30 MG/ML VIAL 15 MG IVP (06:30)
[2025-01-08 06:52] LABS: Troponin I 0.543 ng/mL (0.0-0.045)
[2025-01-08] MEDS: FUROSEMIDE INJ 10 MG/ML VIAL 2 ML 20 MG IVP (09:16)
[2025-01-08] MEDS: DULoxetine HCL 30 MG CAPSULE PO (09:17)
[2025-01-08] MEDS: Lisinopril 20 MG TABLET 30 MG PO (09:17)
[2025-01-08] MEDS: allopurinoL 100 MG TABLET PO (09:17)
[2025-01-08] MEDS: AMIODARONE HCL 200 MG TABLET PO (09:18)
[2025-01-08] MEDS: TAMSULOSIN HCL 0.4 MG CAPSULE PO (09:18)
[2025-01-08] MEDS: ASPIRIN EC 81 MG TABEC PO (09:19)
[2025-01-08] MEDS: FINASTERIDE 5 MG TABLET PO (09:19)
[2025-01-08 09:50] LABS: Platelet Count 145 Thou/mm3 (140-440)
--- NOTE | 2025-01-08 10:10 | PD.IMCONS ---
HPI Data of Consult Requesting Physician: Chace Whatley MD Primary Care Provider: Akila Diaz PA-C Consult Narrative History of present illness: This is a 49 year old male with PMH of Factor V Leiden mutation with PE and DVT on chronic anticoagulation?/history of IVC filter?, DM2, HTN, CAD and HFpEF pt seen in the ER with atypical chest pain EKG unremarkable ; minimal troponin elevation - chronic no cough or sob cc:: cc: Chace Whatley MD Meds Home Medications and Allergies Home Medications ?Medication ?Instructions ?Recorded ?Confirmed ?Type lisinopril 20 mg tablet 20 mg PO BID #0 tabs 08/22/17 01/07/25 History metoprolol tartrate 100 mg tablet 100 mg PO BID 03/14/21 01/07/25 History metformin 500 mg tablet 500 mg PO HS 06/28/21 01/07/25 History ropinirole 0.25 mg tablet 0.25 mg PO HS 10/03/21 01/07/25 History amiodarone 200 mg tablet 200 mg PO QDAY 04/05/22 01/07/25 History atorvastatin 40 mg tablet 40 mg PO HS 09/04/22 01/07/25 History meclizine 25 mg tablet 25 mg PO BID PRN Dizziness 09/04/22 01/07/25 History duloxetine 30 mg capsule,delayed 30 mg PO QDAY 10/24/23 01/07/25 History release finasteride 5 mg tablet 5 mg PO QDAY 10/24/23 01/07/25 History furosemide 20 mg tablet 20 mg PO QDAY 10/24/23 01/07/25 History semaglutide 1 mg/dose (4 mg/3 mL) 1 mg subcut QWEEK 10/24/23 01/07/25 History subcutaneous pen injector (Ozempic) gabapentin 300 mg capsule 300 mg PO TID 08/07/24 01/07/25 History albuterol sulfate 90 mcg/actuation 2 puff inhalation Q4H PRN 01/07/25 01/07/25 History aerosol inhaler shortness of breath or wheezing allopurinol 100 mg tablet 100 mg PO DAILY 01/07/25 01/07/25 History aspirin 81 mg tablet,delayed 81 mg PO DAILY 01/07/25 01/07/25 History release benzonatate 100 mg capsule 200 mg PO TID PRN cough 01/07/25 01/07/25 History ibuprofen 600 mg tablet 600 mg PO [id number] PRN pain 01/07/25 01/07/25 History loratadine 10 mg tablet (Claritin) 10 mg PO QDAY PRN allergic symptoms 01/07/25 01/07/25 History methimazole 10 mg tablet 20 mg PO DAILY 01/07/25 01/07/25 History multivitamin (Daily Multi-Vitamin 1 tab PO QAM 01/07/25 01/07/25 History tablet) ondansetron HCl 4 mg tablet 4 mg PO TID PRN nausea and vomiting 01/07/25 01/07/25 History pantoprazole 40 mg tablet,delayed 40 mg PO QAM 01/07/25 01/07/25 History release (Protonix) rivaroxaban 20 mg tablet (Xarelto) 20 mg PO QPM 01/07/25 01/07/25 History Allergies Allergy/AdvReac Type Severity Reaction Status Date / Time No Known Allergies Allergy Verified 12/29/24 13:36 Exam Vital Signs Temp Pulse Resp BP Pulse Ox O2 Del Method FiO2 97.0 F 63 9 L 127/84 96 BiPAP 21 01/08/25 04:00 01/08/25 09:18 01/08/25 06:26 01/08/25 09:18 01/08/25 04:00 01/08/25 04:00 01/08/25 04:00 Routine HEENT Exam Head: Present normocephalic and atraumatic Eye: Present EOMI and PERRL ENT: Present mucous membranes moist Routine Neck Exam Neck: Present supple and trachea midline Routine Respiratory Exam Respiratory: Present chest non-tender, lungs clear, normal breath sounds and no resp distress Routine Cardiovascular Exam Cardiovascular: Present RRR Routine Abdominal Exam Abdominal: Present soft and normoactive bowel sounds Routine Extremities Exam Extremities: Present full ROM Routine Skin Exam Skin: Present intact, dry and warm Routine Neurological Exam Neurological: Present alert, oriented X3 and CN II-XII intact Routine Psychiatric Exam Psychiatric: Present normal affect and normal thought process Results Labs 01/08/25 04:59 01/08/25 04:59 Labs: Short CBC 01/08/25 Range/Units 04:59 WBC 6.8 (3.8-10.6) Thou/mm3 Hgb 14.8 (13.5-16.0) g/dL Hct 44.8 (41.0-53.0) % Plt Count 145 D (140-440) Thou/mm3 BMP 01/08/25 04:59 Sodium 142 Potassium 4.8 D Chloride 107 Carbon Dioxide 27.0 BUN 14 Creatinine 1.2 Glucose 87 Calcium 8.9 Cardiac Enzymes 01/07/25 01/08/25 Range/Units 11:06 04:59 Troponin I 0.553 H* 0.543 H* (0.0-0.045) ng/mL Liver Function 01/08/25 Range/Units 04:59 Total Bilirubin 0.5 (0.3-1.2) mg/dL AST 30 (0-34) U/L ALT 36 (10-49) U/L Alkaline Phosphatase 129 H D (46-116) U/L Albumin 3.4 L D (3.5-5.0) gm/dL Assessment and Plan Assessment and plan (1) Elevated troponin: Status: Acute (2) Chest pain: Status: Acute (3) Diabetes: Status: Acute (4) CHF (congestive heart failure): Status: Acute (5) DVT (deep venous thrombosis): Status: Acute Additional Assessment & Plan Additional Plan: chest pain non cardiac continue current meds resume home meds stable cardiac status
[2025-01-08] MEDS: KETOROLAC 10 MG TABLET PO (12:05)
--- NOTE | 2025-01-08 14:05 | ESDS_ITS ---
<Statement entered by Chace Whatley MD - 01/10/25 07:52> I reviewed above note and agree with findings and plans. I have also personally examined the patient with medicine team and went over assessment and plan with medical team including consultant internship and resident physician. Planned Discharge Date 01/08/25 DS: Providers Provider Date of admission: 01/07/25 11:32 Primary care physician: Akila Diaz PA-C Admitting Provider: Chace Whatley MD Attending Provider on Admission: Chace Whatley MD Consults: 01/07/25 11:38 Consult to Cardiology Stat Comment: Consulting Provider: Everette Albarran Instructions: atypical chest pain, trops downtrending 01/08/25 08:00 Referral Infection Control Routine Comment: Reason for Infection Control Referral: Readmitted within 30 days Attending Provider on DC: Vinita Dey MD Discharging Provider: Vinita Dey MD DS: Diagnosis Problem List Completed Was Problem List Reviewed/Reconciled?: Yes Hospital Course Hospital Course Hospital course: Patient is a 49 year old male with PMH of Factor V Leiden mutation with PE and DVT on chronic anticoagulation, history of IVC filter, HTN, CAD and HFpEF followed by Dr. Ortega, CKD and AYLEEN and BPH, who presents to the ER for chest pain that started after his dinner. Pain is constant, generalized, worst with breathing, palpation, and walking. Was recently diagnosed at another ER with pleurisy and prescribed ibuprofen, but did not take it. Upon initial evaluation, patient was lying flat saturating well on room air. His endorsed chest pain upon palpation. Labs were unremarkable except for a troponin of 0.6. Chest-xray was unremarkable. EKG showed sinus rhythm with nonspecific T waves. Patient was admitted for observation for atypical chest pain. Patient was given toradol for his chest pain with some improvement. Troponins downtrended. Repeat EKG also showed sinus rhythm without ST elevations or depressions. He was restarted on his home medications. Echo was done which showed normal EF of 55-60% with dyastolic dysfunction I. Drop Hammer Pile Driver Operator Dr. Albarran was consulted and suspected chest pain is not cardiac in nature at this time and his elevated troponins were chronic. Patient was reassured his pain is non-cardiac in nature and was recommended to follow up with his outpatient health occupations teacher for any further cardic concerns. Patient to be discharged to home with the following recommendations: - Follow up with your health occupations teacher Dr. Ortega - Continue all home medications - Follow up with your primary care physician within 1 week of discharge. If you do not have a primary care physician, please follow up with the [facility] Residents clinic ([phone]) I have reviewed and discussed the patient's care with my attending, Dr. Phylicia Dey MD PGY-3 #Atypical chest pain #History of type 2 diabetes #Hx hypertension #Hx hyperlipidemia #Hx BPH #Hx of factor V Leiden mutation #Hx of DVT, PE #Hx AYLEEN Status at Discharge Functional status at discharge: independent ambulation Time Spent with Patient Time attestation: Total time spent providing and/or coordinating discharge services: Time spent: Greater than 30 minutes Exam Vital Signs Temp Pulse Resp BP Pulse Ox O2 Del Method FiO2 96.2 F L 72 20 121/61 96 Room Air 21 01/08/25 11:47 01/08/25 12:00 01/08/25 11:47 01/08/25 11:47 01/08/25 11:47 01/08/25 11:47 01/08/25 04:00 Narrative Exam General: Middle-age male, awake, alert, orientated; smiling, pleasant HEENT: NCAT, Mucus membranes moist Cardiovascular: Normal S1 and S2. Regular rate and rhythm. Respiratory: Lungs are clear to auscultation bilaterally. No wheezing or crackl es heard. Abdomen: Soft, nontender, not distended, normal bowel sounds. Skin: Warm to touch, dry, no rashes noted Musculoskeletal: No gross injuries. Able to move all 4 extremities. +1 pitting edema, pain to palpation of the chest (atraumatic) Neuro: Alert and oriented x3. No focal neuro deficits. Psych: Normal affect/mood. Discharge Plan Plan Patient Disposition: HOME (Self Care) Prescriptions/Referrals Prescriptions/Med Rec: Continued gabapentin 300 mg capsule 300 mg PO TID lisinopril 20 MG tablet 20 mg PO BID Qty: 0 metformin 500 mg tablet 500 mg PO HS Patient Comments: TAKE 1 TABLET BY MOUTH EVERY DAY AT BEDTIME FOR DIABETES metoprolol tartrate 100 mg tablet 100 mg PO BID Patient Comments: TAKE 1 TABLET BY MOUTH TWICE A DAY FOR BLOOD PRESSURE ropinirole 0.25 mg Tablet 0.25 mg PO HS amiodarone 200 mg Tablet 200 mg PO QDAY atorvastatin 40 mg tablet 40 mg PO HS Patient Comments: TAKE 1 TABLET BY MOUTH AT BEDTIME FOR CHOLESTEROL meclizine 25 mg tablet 25 mg PO BID PRN (Reason: Dizziness) Patient Comments: TAKE 1-2 TABLETS BY MOUTH TWICE A DAY NEEDED FOR DIZZINESS tamsulosin [Flomax] 0.4 mg capsule 0.4 mg PO QDAY Qty: 7 0RF furosemide 20 mg tablet 20 mg PO QDAY Ozempic 1 mg/dose (4 mg/3 mL) pen injector 1 mg SUBCUT QWEEK Patient Comments: Rx Instructions: 1 time weekly duloxetine 30 mg capsule,delayed release(DR/EC) 30 mg PO QDAY finasteride 5 mg tablet 5 mg PO QDAY Patient Comments: TAKE 1 TABLET BY MOUTH EVERY DAY aspirin 81 mg tablet,delayed release (DR/EC) 81 mg PO DAILY Xarelto 20 mg tablet 20 mg PO QPM Rx Instructions: must administer with evening meal benzonatate 100 mg capsule 200 mg PO TID PRN (Reason: cough) allopurinol 100 mg tablet 100 mg PO DAILY Patient Comments: TAKE 2 TABS BY MOUTH 1 TIME A DAY FOR GOUT methimazole 10 mg tablet 20 mg PO DAILY multivitamin [Daily Multi-Vitamin] Tablet 1 tab PO QAM pantoprazole [Protonix] 40 mg tablet,delayed release (DR/EC) 40 mg PO QAM ibuprofen 600 mg tablet 600 mg PO [id number] PRN (Reason: pain) loratadine [Claritin] 10 mg tablet 10 mg PO QDAY PRN (Reason: allergic symptoms) ondansetron HCl 4 mg tablet 4 mg PO TID PRN (Reason: nausea and vomiting) albuterol sulfate 90 mcg/actuation HFA aerosol inhaler 2 puff INHALATION Q4H PRN (Reason: shortness of breath or wheezing) Patient Comments: TAKE 1-2 PUFFS BY MOUTH EVERY 4 HOURS INHALATION NEEDED Discontinued sulfamethoxazole-trimethoprim [Bactrim DS] 800-160 mg tablet 1 tab PO BID Qty: 14 0RF hydrocortisone 2.5 % cream 1 applic topical BID Qty: 28.35 0RF Rx Instructions: Stop when rash is gone; no more than 2 weeks tamsulosin [Flomax] 0.4 mg capsule 0.4 mg PO QDAY Qty: 7 0RF cefuroxime axetil 500 mg tablet 500 mg PO BID Qty: 14 0RF clopidogrel 75 mg tablet 75 mg PO QDAY furosemide [Lasix] 40 mg tablet 40 mg PO QDAY Qty: 14 0RF potassium chloride 20 mEq tablet extended release 20 meq PO QDAY Qty: 14 0RF azithromycin 250 mg tablet See Rx Instructions .ROUTE .COMPLEX Qty: 6 0RF Rx Instructions: For 250 mg dose pack: take 500 mg today (day 1), then 250 mg for 4 days (days 2-5) amoxicillin-pot clavulanate 875-125 mg tablet 1 tab PO BID Qty: 14 0RF doxycycline monohydrate 100 mg capsule 100 mg PO BID Qty: 14 0RF Referrals: Akila Diaz PA-C [Primary Care Provider] - Patient/Caregiver Discharge Instructions Other Discharge Activity Instructions:: Follow up with primary doctor within one week. Ask primary doctor for referral to health occupations teacher. Print Language: Bhutanese Stand Alone Forms: [employer] Award Info., Patient Portal Info Letter, Work/Release Restrictions Discharge Order Discharge Orders: Discharge (Routine); Ordered 01/08/25 Ordered By: Vinita Dey Quality Discharge Quality Measures VTE prophylaxis
== END 2025-01-08 14:27 | disposition home or self-care (01) ==
LOC: SERX 11:10 → SERHOLD 12:06 → S2NX 01-08 07:54
PROVIDERS: Emergency Medicine; Admitting Provider Internal Medicine; Emergency Provider Emergency Medicine; PCP Physician Assistant; Visit Provider Internal Medicine
DX: R07.89 Other chest pain (principal); D68.51 Activated protein C resistance; E11.22 Type 2 diabetes mellitus with diabetic chronic kidney disease; I13.0 Hypertensive heart and chronic kidney disease with heart failure and stage 1 through stage 4 chronic kidney disease, or unspecified chronic kidney disease; N18.9 Chronic kidney disease, unspecified; I50.9 Heart failure, unspecified; N40.0 Benign prostatic hyperplasia without lower urinary tract symptoms; K21.9 Gastro-esophageal reflux disease without esophagitis; J45.909 Unspecified asthma, uncomplicated; I50.32 Chronic diastolic (congestive) heart failure; I25.2 Old myocardial infarction; I25.10 Atherosclerotic heart disease of native coronary artery without angina pectoris; G47.33 Obstructive sleep apnea (adult) (pediatric); E66.9 Obesity, unspecified; E78.00 Pure hypercholesterolemia, unspecified; F41.9 Anxiety disorder, unspecified; Z79.01 Long term (current) use of anticoagulants; Z79.02 Long term (current) use of antithrombotics/antiplatelets; Z79.4 Long term (current) use of insulin; Z79.82 Long term (current) use of aspirin; Z79.84 Long term (current) use of oral hypoglycemic drugs; Z79.899 Other long term (current) drug therapy; Z82.49 Family history of ischemic heart disease and other diseases of the circulatory system; Z86.711 Personal history of pulmonary embolism; R62.50 Unspecified lack of expected normal physiological development in childhood; Z91.81 History of falling; Z68.41 Body mass index [BMI] 40.0-44.9, adult
CPT/HCPCS: 36415; 71046; 80053; 80307; 83036; 83735; 83880; 84100; 84484; 85025; 85610; 85730; 87081; 87400; 87811; 93005; 93306; 94640; 94660; 96372; 96374; 96375; 99285; G0378; J1650; J1885; J1940; A9270

== ENCOUNTER 2025-01-10 11:49 | Emergency (ER) | payer MEDICAID, SELFPAY ==
[2025-01-10 11:54] VITALS: BP 106/74; PULSE 84; RESP 18; TEMP 36.6; O2SAT 95; BMI 40.3
--- NOTE | 2025-01-10 12:07 | XR_ITS ---
Examination: Venous duplex lower extremity sonogram, bilateral. Date and time of exam: 12/29/2024, 12:39 PM Technique: Multiple sonographic images of the deep venous system have been obtained. B-mode/2-D grayscale imaging of vascular structures and Doppler spectral analysis (waveforms) and color performed Both legs are examined. Findings: Right leg: Noncompressibility of the mid and distal SFA with internal echoes and poor color flow. The right popliteal and peroneal veins demonstrate internal echoes but are compressible with good color flow. Left leg: Normal flow, compression and augmentation of all visualized deep veins of the left lower extremity. Impression: Partially occlusive thrombus right mid and distal SFA Nonocclusive thrombus right popliteal and peroneal veins. No evidence of DVT in the left leg.
--- NOTE | 2025-01-10 12:08 | PD.EDRME ---
Rapid Medical Screening Exam RME Arrival date/time: 01/10/25 11:49 49 year old male present to ED for c/o of lower leg pain, hx of dvt I have greeted and performed a focused initial assessment of this patient. A comprehensive ED assessment and evaluation of the patient, analysis of all test results, and completion of the medical decision making process will be conducted by additional ED providers. Chief Complaint: General Adult/Misc Complain Time Seen by Provider: 01/10/25 12:01 Vital signs: Vital Signs Temperature 97.9 F 01/10/25 11:54 Pulse Rate 84 01/10/25 11:54 Respiratory Rate 18 01/10/25 11:54 Blood Pressure 106/74 01/10/25 11:54 Pulse Oximetry (%) 95 01/10/25 11:54 Oxygen Delivery Method Room Air 01/10/25 11:54
--- NOTE | 2025-01-10 18:48 | PD.EDADULT ---
ED General RME/HPI General Chief complaint: General Adult/Misc Complain Stated complaint: SWELLING IN B/L LEGS Time Seen by Provider: 01/10/25 12:01 Arrival date/time: 01/10/25 11:49 RME / HPI RME / HPI narrative: 01/10/25 11:49 49 year old male present to ED for c/o of lower leg pain, hx of dvt I have greeted and performed a focused initial assessment of this patient. A comprehensive ED assessment and evaluation of the patient, analysis of all test results, and completion of the medical decision making process will be conducted by additional ED providers. DR. 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 Patient states that he has had bilateral leg swelling all week . This includes before his admission and discharge from this facility. Patient denies chest pain of any kind as well as dyspnea shortness of breath. Patient has no tingling or numbness. No motor weakness. Related Data Home Medications ?Medication ?Instructions ?Recorded ?Confirmed lisinopril 20 mg tablet 20 mg PO BID #0 tabs 08/22/17 01/07/25 metoprolol tartrate 100 mg tablet 100 mg PO BID 03/14/21 01/07/25 metformin 500 mg tablet 500 mg PO HS 06/28/21 01/07/25 ropinirole 0.25 mg tablet 0.25 mg PO HS 10/03/21 01/07/25 amiodarone 200 mg tablet 200 mg PO QDAY 04/05/22 01/07/25 atorvastatin 40 mg tablet 40 mg PO HS 09/04/22 01/07/25 meclizine 25 mg tablet 25 mg PO BID PRN Dizziness 09/04/22 01/07/25 duloxetine 30 mg capsule,delayed 30 mg PO QDAY 10/24/23 01/07/25 release finasteride 5 mg tablet 5 mg PO QDAY 10/24/23 01/07/25 furosemide 20 mg tablet 20 mg PO QDAY 10/24/23 01/07/25 semaglutide 1 mg/dose (4 mg/3 mL) 1 mg subcut QWEEK 10/24/23 01/07/25 subcutaneous pen injector (Ozempic) gabapentin 300 mg capsule 300 mg PO TID 08/07/24 01/07/25 albuterol sulfate 90 mcg/actuation 2 puff inhalation Q4H PRN 01/07/25 01/07/25 aerosol inhaler shortness of breath or wheezing allopurinol 100 mg tablet 100 mg PO DAILY 01/07/25 01/07/25 aspirin 81 mg tablet,delayed 81 mg PO DAILY 01/07/25 01/07/25 release benzonatate 100 mg capsule 200 mg PO TID PRN cough 01/07/25 01/07/25 ibuprofen 600 mg tablet 600 mg PO [id number] PRN pain 01/07/25 01/07/25 loratadine 10 mg tablet (Claritin) 10 mg PO QDAY PRN allergic symptoms 01/07/25 01/07/25 methimazole 10 mg tablet 20 mg PO DAILY 01/07/25 01/07/25 multivitamin (Daily Multi-Vitamin 1 tab PO QAM 01/07/25 01/07/25 tablet) ondansetron HCl 4 mg tablet 4 mg PO TID PRN nausea and vomiting 01/07/25 01/07/25 pantoprazole 40 mg tablet,delayed 40 mg PO QAM 01/07/25 01/07/25 release (Protonix) rivaroxaban 20 mg tablet (Xarelto) 20 mg PO QPM 01/07/25 01/07/25 Previous Rx's ?Medication ?Instructions ?Recorded tamsulosin 0.4 mg capsule (Flomax) 0.4 mg PO QDAY #7 caps 08/23/24 Allergies Allergy/AdvReac Type Severity Reaction Status Date / Time No Known Allergies Allergy Verified 01/11/25 10:36 Review of Systems Review of Systems Systems Reviewed: All systems reviewed, normal except as documented Narrative Review of Systems: GEN: No fever, no chills, no weight loss EYES: No discharge, no visual changes, no pain HEENT: No ear pain, no congestion, no sore throat PULM: No shortness of breath, no cough, no congestion CV: No chest pain, no dyspnea on exertion, no palpitations GI: No nausea, no vomiting, no diarrhea, no pain, no constipation : No frequency, no urgency and no dysuria MUSC/SKEL: + bilateral legs swelling (see HPI), no back pain SKIN: No rash PSYCH: No hallucinations, no depression HEME/LYMPH: No easy bleeding or bruising tendencies NEURO: No weakness, no headache Past Medical History Past Medical History NEUROLOGIC: Negative Neurological Disorders CARDIAC: Positive Cardiac Disorders, Myocardial Infarction, Angina, Coronary Artery Disease, Atherosclerotic Heart Disease, Hypercholesterolemia, Congestive Heart Failure, Edema, Deep Vein Thrombosis and Hypertension RESPIRATORY: Positive Asthma, Pneumonia, Pulmonary Embolism and Sleep Apnea (home CPAP); Negative Chronic Obstructive Pulmonary Disease (COPD) GASTROINTESTINAL: Positive Gastrointestinal Disorders, Gastroesophageal Reflux Disease and Obesity GENITOURINARY: Positive Genitourinary Disorders, Kidney Stones and Benign Prostatic Hyperplasia; Negative Renal Disease MUSCULOSKELETAL: Negative Musculoskeletal Disorders ENDOCRINE: Positive Endocrine Disorders and Diabetes Mellitus Type 2; Negative Diabetes Mellitus Type 1 HEMATOLOGIC: Positive Blood Disorders and Clotting Problems; Negative Anemia or Sickle Cell Disease PSYCHO/SOCIAL: Positive Anxiety OTHER HISTORY: Positive Developmental Delay and Falls; Negative Autoimmune Disease, Blood Transfusions, Anesthesia Reactions or Cancer Family History FAMILY HISTORY: Positive Family Cardiac Disorders, Family Cancer and Family Surgery; Negative Family Neurologic Problems, Family Psychiatric Problems, Family Respiratory Disorders, Family Gastrointestinal Problems or Family Anesthesia Reaction Surgical History SURGICAL: Positive Vascular Surgery (STENT TO RT LEG DUE TO BLOOD CLOT) and Angiogram; Negative Coronary Stent Social History SMOKING STATUS: Never smoker SECOND HAND EXPOSURE: No SUBSTANCE USE: does not use ALCOHOL: Never 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 alert and oriented x 4, well-developed, well-nourished, no acute distress HEENT: Normocephalic, atraumatic; pupils equal, round, reactive to light; EOMI; mucous membranes pink, moist; oropharynx clear NECK: Supple LUNGS: CTABL; no wheezes, no rales, no rhonchi HEART: Regular rate, regular rhythm; normal S1, S2; no murmurs ABDOMEN: non distended; normal BS;? soft, no tenderness, no guarding, no rebound; no masses, no organomegaly, no hernia?? BACK:? no CVA tenderness EXTREMITIES:? Atraumatic. Bilateral lower extremity +2/4 pitting edema. There is no discoloration. Normal dorsalis pedis and posterior tib pulses bilaterally. NEUROLOGIC: awake; alert and oriented x4; cranial nerves II-XII grossly intact; no focal sensory or motor deficits PSYCHIATRIC:? appropriate mood and affect SKIN: warm, dry, normal color; no rashes Course Quality Measures none Orders Category Date Time Status US venous doppler LE BI Stat Exams 01/10/25 12:07 Completed Vital Signs Vital signs: Vital Signs Temperature 97.9 F 01/10/25 11:54 Pulse Rate 84 01/10/25 11:54 Respiratory Rate 18 01/10/25 11:54 Blood Pressure 106/74 01/10/25 11:54 Pulse Oximetry (%) 95 01/10/25 11:54 Oxygen Delivery Method Room Air 01/10/25 11:54 [facility] Patient data External records reviewed:: [facility] previous records (Reviewed last admission discharge dated 01/08/25, patient admitted for the following: CHF (congestive heart failure).) Clinical information provided by:: patient Social determinants that could affect healthcare access:: none Patient has the following chronic illnesses:: Factor V Leiden mutation with history of repeated and multiple DVTs and PEs, on chronic aspirin and Xarelto therapy, has an IVC filter, history of hypertension, hyperlipidemia, obstructive sleep apnea and CAD, recent admission for elevated troponins and discharged yesterday, sees Dr. 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 How is presenting disease/condition affected by chronic disease/condition?: exacerbated by Evaluation data The following diagnostics were reviewed and interpreted by me:: radiology exam(s) Lab and/or radiology exams considered but not ordered:: none Interpretation Summary: Procedure(s): US venous doppler LE BI Accession Number(s): [id number] cc: Ramesh Mccarthy MD; Deon Hand MD; Aristides Magallanes PA-C; Akila Diaz PA-C~ ADDENDUM ADDENDUM #1 Addendum: The impression should read: Positive for acute thrombus in the mid and distal right superficial femoral vein There are no images supporting a finding of thrombus in the arterial system of the lower extremity ORIGINAL REPORT Examination: Venous duplex lower extremity sonogram, bilateral. Date and time of exam: 12/29/2024, 12:39 PM Technique: Multiple sonographic images of the deep venous system have been obtained. B-mode/2-D grayscale imaging of vascular structures and Doppler spectral analysis (waveforms) and color performed Both legs are examined. Findings: Right leg: Noncompressibility of the mid and distal SFA with internal echoes and poor color flow. The right popliteal and peroneal veins demonstrate internal echoes but are compressible with good color flow. Left leg: Normal flow, compression and augmentation of all visualized deep veins of the left lower extremity. Impression: Partially occlusive thrombus right mid and distal SFA Nonocclusive thrombus right popliteal and peroneal veins. No evidence of DVT in the left leg. Addendum Dictated By: Deon Hand MD Addendum Signed By: <Electronically signed by Deon Hand MD in [place]> 01/10/251833 Addendum Cosigned By: DD/ /06/1831 TD/TT: 01/10/2512/06/1831 Examination: Venous duplex lower extremity sonogram, bilateral. Date and time of exam: 12/29/2024, 12:39 PM Technique: Multiple sonographic images of the deep venous system have been obtained. B-mode/2-D grayscale imaging of vascular structures and Doppler spectral analysis (waveforms) and color performed Both legs are examined. Findings: Right leg: Noncompressibility of the mid and distal SFA with internal echoes and poor color flow. The right popliteal and peroneal veins demonstrate internal echoes but are compressible with good color flow. Left leg: Normal flow, compression and augmentation of all visualized deep veins of the left lower extremity. Impression: Partially occlusive thrombus right mid and distal SFA Nonocclusive thrombus right popliteal and peroneal veins. No evidence of DVT in the left leg. Dictated By: Ramesh Mccarthy MD Medications Medications considered but not ordered:: none Medication administrations:: none Consultations Consultation(s) initiated? (list below): No Diagnosis Differential Diagnosis ED Complaint MDM: DVT, CHF, cellulitis Most likely diagnosis given after review of the tests above:: Acute DVT of right lower extremity Admission Indicated Admission indicated?: not indicated Explain why admission is indicated or not indicated:: Patient has no emergent abnormalities on his studies and can be managed on an outpatient basis. Admission Request Was there a request for admission?: No Disposition Plan Disposition Plan: Discharge Discharge Attestation Discharge Attestation: The patient and all family members were given an opportunity to ask questions and understood the discharge instructions. Discharge instructions specifically effects, indications for sooner follow up or return to the emergency department, and the expected course of current diagnosis. Patient condition: Stable Medical Decision Making MDM Narrative MDM Narrative: Patient's workup shows a partially occlusive DVT in the right mid and distal SFV. There is also nonocclusive thrombus in the right popliteal and peroneal veins. Originally the film was read as showing a partially occlusive clot in the SFA. I called Dr. Jolly to review the film. There is no images supporting the idea that there is a occlusive thrombus of an artery in either leg. This was a typo and it was supposed to be SFV. Patient is already taking Xarelto and aspirin. He is in no acute distress. Will discharge the patient with instructions to follow-up with his primary care doctor within the next several days. Also he needs to return to the ER right away for any worsening and he agrees to do that. Differential Diagnosis Differential Diagnosis: DVT, CHF, cellulitis Discharge Plan Plan Patient Disposition: HOME (Self Care) Disposition Comment: Stable for discharge Patient condition on transfer: Stable Prescriptions/Referrals Prescriptions/Med Rec: No Action gabapentin 300 mg capsule 300 mg PO TID lisinopril 20 MG tablet 20 mg PO BID Qty: 0 metformin 500 mg tablet 500 mg PO HS Patient Comments: TAKE 1 TABLET BY MOUTH EVERY DAY AT BEDTIME FOR DIABETES metoprolol tartrate 100 mg tablet 100 mg PO BID Patient Comments: TAKE 1 TABLET BY MOUTH TWICE A DAY FOR BLOOD PRESSURE ropinirole 0.25 mg Tablet 0.25 mg PO HS amiodarone 200 mg Tablet 200 mg PO QDAY atorvastatin 40 mg tablet 40 mg PO HS Patient Comments: TAKE 1 TABLET BY MOUTH AT BEDTIME FOR CHOLESTEROL meclizine 25 mg tablet 25 mg PO BID PRN (Reason: Dizziness) Patient Comments: TAKE 1-2 TABLETS BY MOUTH TWICE A DAY NEEDED FOR DIZZINESS tamsulosin [Flomax] 0.4 mg capsule 0.4 mg PO QDAY Qty: 7 0RF furosemide 20 mg tablet 20 mg PO QDAY Ozempic 1 mg/dose (4 mg/3 mL) pen injector 1 mg SUBCUT QWEEK Patient Comments: Rx Instructions: 1 time weekly duloxetine 30 mg capsule,delayed release(DR/EC) 30 mg PO QDAY finasteride 5 mg tablet 5 mg PO QDAY Patient Comments: TAKE 1 TABLET BY MOUTH EVERY DAY aspirin 81 mg tablet,delayed release (DR/EC) 81 mg PO DAILY Xarelto 20 mg tablet 20 mg PO QPM Rx Instructions: must administer with evening meal benzonatate 100 mg capsule 200 mg PO TID PRN (Reason: cough) allopurinol 100 mg tablet 100 mg PO DAILY Patient Comments: TAKE 2 TABS BY MOUTH 1 TIME A DAY FOR GOUT methimazole 10 mg tablet 20 mg PO DAILY multivitamin [Daily Multi-Vitamin] Tablet 1 tab PO QAM pantoprazole [Protonix] 40 mg tablet,delayed release (DR/EC) 40 mg PO QAM ibuprofen 600 mg tablet 600 mg PO [id number] PRN (Reason: pain) loratadine [Claritin] 10 mg tablet 10 mg PO QDAY PRN (Reason: allergic symptoms) ondansetron HCl 4 mg tablet 4 mg PO TID PRN (Reason: nausea and vomiting) albuterol sulfate 90 mcg/actuation HFA aerosol inhaler 2 puff INHALATION Q4H PRN (Reason: shortness of breath or wheezing) Patient Comments: TAKE 1-2 PUFFS BY MOUTH EVERY 4 HOURS INHALATION NEEDED Referrals: Akila Diaz PA-C [Primary Care Provider] - In 1 week Problem List Clinical Impression: Acute deep vein thrombosis (DVT) of right lower extremity Patient/Caregiver Discharge Instructions Discharge Activity: activity as tolerated Education Materials: ED Deep Vein Thrombosis (DVT) Additional Instructions: Today the ultrasound showed that you have a deep vein thrombosis in your right lower extremity. This is not a completely occlusive thrombus and some of the blood is still able to get by. This is causing swelling but you are not at risk of losing blood flow to the leg. Plus you are already taking Xarelto and aspirin, according to our records. You should follow-up with your primary care doctor and with Dr. Ortega within the next several days. You should also return to the ER if you have any worsening or if you feel like you are not getting better within the next several days and we will help you.a Print Language: Yemeni Stand Alone Forms: [employer] Info., Patient Portal Info Letter
[2025-01-10 19:45] VITALS: BP 130/82; PULSE 70; RESP 18; TEMP 36.1; O2SAT 97
== END 2025-01-10 19:45 | disposition home or self-care (01) ==
PROVIDERS: Emergency Provider Emergency Medicine; PCP Physician Assistant
DX: I82.411 Acute embolism and thrombosis of right femoral vein (principal); M79.89 Other specified soft tissue disorders; M79.662 Pain in left lower leg; Z95.820 Peripheral vascular angioplasty status with implants and grafts; Z79.01 Long term (current) use of anticoagulants
CPT/HCPCS: 93970; 99284

== ENCOUNTER 2025-01-11 10:32 | Emergency (ER) | payer MEDICAID, SELFPAY ==
[2025-01-11 10:34] VITALS: BMI 40.2
[2025-01-11 11:04] VITALS: BP 135/78; PULSE 74; RESP 18; TEMP 36.9; O2SAT 98
--- NOTE | 2025-01-11 11:20 | XR_ITS ---
Examination: Duplex scan of the lower extremity, unilateral right complete Date and time of exam: Leg pain and swelling beginning one week ago Technique: Duplex scan of the extremity veins using B-mode/grayscale imaging and Doppler spectral analysis and color flow Attention is directed to internal echogenicity, compression and augmentation involving these veins, color flow assessment, spectral analysis Findings: Positive for occlusive deep vein thrombus involving the right superficial femoral vein Nonocclusive DVT in the right popliteal and peroneal veins Impression: Positive for occlusive DVT right superficial femoral vein, nonocclusive DVT right popliteal peroneal veins
--- NOTE | 2025-01-11 11:21 | PD.EDRME ---
Rapid Medical Screening Exam RME Arrival date/time: 01/11/25 10:32 49 yo m present to Ed for c/o of worsen right leg today. + dvt yesterday I have greeted and performed a focused initial assessment of this patient. A comprehensive ED assessment and evaluation of the patient, analysis of all test results, and completion of the medical decision making process will be conducted by additional ED providers. Chief Complaint: General Adult/Misc Complain Time Seen by Provider: 01/11/25 10:35 Vital signs: Vital Signs Temperature 98.5 F 01/11/25 11:04 Pulse Rate 74 01/11/25 11:04 Respiratory Rate 18 01/11/25 11:04 Blood Pressure 135/78 H 01/11/25 11:04 Pulse Oximetry (%) 98 01/11/25 11:04 Oxygen Delivery Method Room Air 01/11/25 11:04
[2025-01-11 15:01] VITALS: BP 137/90; PULSE 71; RESP 18; TEMP 36.8; O2SAT 96
--- NOTE | 2025-01-11 15:55 | PD.EDADULT ---
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 The patient has no shortness of breath difficulty breathing headache nausea vomiting diarrhea or fever. Mother at bedside. RME / HPI RME / HPI narrative: 01/11/25 10:32 49 yo m present to Ed for c/o of worsen right leg today. + dvt yesterday I have greeted and performed a focused initial assessment of this patient. A comprehensive ED assessment and evaluation of the patient, analysis of all test results, and completion of the medical decision making process will be conducted by additional ED providers. Related Data Home Medications ?Medication ?Instructions ?Recorded ?Confirmed lisinopril 20 mg tablet 20 mg PO BID #0 tabs 08/22/17 01/07/25 metoprolol tartrate 100 mg tablet 100 mg PO BID 03/14/21 01/07/25 metformin 500 mg tablet 500 mg PO HS 06/28/21 01/07/25 ropinirole 0.25 mg tablet 0.25 mg PO HS 10/03/21 01/07/25 amiodarone 200 mg tablet 200 mg PO QDAY 04/05/22 01/07/25 atorvastatin 40 mg tablet 40 mg PO HS 09/04/22 01/07/25 meclizine 25 mg tablet 25 mg PO BID PRN Dizziness 09/04/22 01/07/25 duloxetine 30 mg capsule,delayed 30 mg PO QDAY 10/24/23 01/07/25 release finasteride 5 mg tablet 5 mg PO QDAY 10/24/23 01/07/25 furosemide 20 mg tablet 20 mg PO QDAY 10/24/23 01/07/25 semaglutide 1 mg/dose (4 mg/3 mL) 1 mg subcut QWEEK 10/24/23 01/07/25 subcutaneous pen injector (Ozempic) gabapentin 300 mg capsule 300 mg PO TID 08/07/24 01/07/25 albuterol sulfate 90 mcg/actuation 2 puff inhalation Q4H PRN 01/07/25 01/07/25 aerosol inhaler shortness of breath or wheezing allopurinol 100 mg tablet 100 mg PO DAILY 01/07/25 01/07/25 aspirin 81 mg tablet,delayed 81 mg PO DAILY 01/07/25 01/07/25 release benzonatate 100 mg capsule 200 mg PO TID PRN cough 01/07/25 01/07/25 ibuprofen 600 mg tablet 600 mg PO [id number] PRN pain 01/07/25 01/07/25 loratadine 10 mg tablet (Claritin) 10 mg PO QDAY PRN allergic symptoms 01/07/25 01/07/25 methimazole 10 mg tablet 20 mg PO DAILY 01/07/25 01/07/25 multivitamin (Daily Multi-Vitamin 1 tab PO QAM 01/07/25 01/07/25 tablet) ondansetron HCl 4 mg tablet 4 mg PO TID PRN nausea and vomiting 01/07/25 01/07/25 pantoprazole 40 mg tablet,delayed 40 mg PO QAM 01/07/25 01/07/25 release (Protonix) rivaroxaban 20 mg tablet (Xarelto) 20 mg PO QPM 01/07/25 01/07/25 Previous Rx's ?Medication ?Instructions ?Recorded tamsulosin 0.4 mg capsule (Flomax) 0.4 mg PO QDAY #7 caps 08/23/24 Allergies Allergy/AdvReac Type Severity Reaction Status Date / Time No Known Allergies Allergy Verified 01/11/25 10:36 Review of Systems Review of Systems Narrative Review of Systems: GEN: No fever, no chills, no weight loss EYES: No discharge, no visual changes, no pain HEENT: No ear pain, no congestion, no sore throat PULM: No shortness of breath, no cough, no congestion CV: No chest pain, no dyspnea on exertion, no palpitations GI: No nausea, no vomiting, no diarrhea, no pain, no constipation : No frequency, no urgency, no dysuria MUSC/SKEL: No joint pain, no back pain, edema and pain SKIN: No rash PSYCH: No hallucinations, no depression HEME/LYMPH: No easy bleeding or bruising tendencies NEURO: No weakness, no headache Past Medical History Past Medical History NEUROLOGIC: Negative Neurological Disorders CARDIAC: Positive Cardiac Disorders, Myocardial Infarction, Angina, Coronary Artery Disease, Atherosclerotic Heart Disease, Hypercholesterolemia, Congestive Heart Failure, Edema, Deep Vein Thrombosis and Hypertension RESPIRATORY: Positive Asthma, Pneumonia, Pulmonary Embolism and Sleep Apnea (home CPAP); Negative Chronic Obstructive Pulmonary Disease (COPD) GASTROINTESTINAL: Positive Gastrointestinal Disorders, Gastroesophageal Reflux Disease and Obesity GENITOURINARY: Positive Genitourinary Disorders, Kidney Stones and Benign Prostatic Hyperplasia; Negative Renal Disease MUSCULOSKELETAL: Negative Musculoskeletal Disorders ENDOCRINE: Positive Endocrine Disorders and Diabetes Mellitus Type 2; Negative Diabetes Mellitus Type 1 HEMATOLOGIC: Positive Blood Disorders and Clotting Problems; Negative Anemia or Sickle Cell Disease PSYCHO/SOCIAL: Positive Anxiety OTHER HISTORY: Positive Developmental Delay and Falls; Negative Autoimmune Disease, Blood Transfusions, Anesthesia Reactions or Cancer Family History FAMILY HISTORY: Positive Family Cardiac Disorders, Family Cancer and Family Surgery; Negative Family Neurologic Problems, Family Psychiatric Problems, Family Respiratory Disorders, Family Gastrointestinal Problems or Family Anesthesia Reaction Surgical History SURGICAL: Positive Vascular Surgery (STENT TO RT LEG DUE TO BLOOD CLOT) and Angiogram; Negative Coronary Stent Social History SMOKING STATUS: Never smoker SECOND HAND EXPOSURE: No SUBSTANCE USE: does not use OCCUPATION: [employer] Course Course Course Narrative: Course: The patient or his an upcoming appoint with Dr. Keller could be referred to vascular surgeon if necessary. Otherwise patient continue on the Xarelto. Quality Measures none Orders Category Date Time Status US venous doppler LE RT Stat Exams 01/11/25 11:20 Completed Vital Signs Vital signs: Vital Signs Temperature 98.5 F 01/11/25 11:04 Pulse Rate 74 01/11/25 11:04 Respiratory Rate 18 01/11/25 11:04 Blood Pressure 135/78 H 01/11/25 11:04 Pulse Oximetry (%) 98 01/11/25 11:04 Oxygen Delivery Method Room Air 01/11/25 11:04 [facility] Patient data External records reviewed:: [facility] previous records Clinical information provided by:: patient and parent Social determinants that could affect healthcare access:: none Patient has the following chronic illnesses:: Coagulopathic How is presenting disease/condition affected by chronic disease/condition?: exacerbated by Evaluation data The following diagnostics were reviewed and interpreted by me:: lab results and radiology exam(s) Lab and/or radiology exams considered but not ordered:: Ultrasound shows no challenge from ultrasound yesterday the patient positive for a DVT unchanged from ultrasound yesterday Interpretation Summary: Right leg DVT Medications Medications considered but not ordered:: None Medication administrations:: None Consultations Consultation(s) initiated? (list below): No Diagnosis Differential Diagnosis ED Complaint MDM: DVT PE cellulitis Most likely diagnosis given after review of the tests above:: DVT Admission Indicated Admission indicated?: not indicated Explain why admission is indicated or not indicated:: Stable for discharge Admission Request Was there a request for admission?: No Disposition Plan Disposition Plan: Discharge Discharge Attestation Discharge Attestation: The patient and all family members were given an opportunity to ask questions and understood the discharge instructions. Discharge instructions specifically effects, indications for sooner follow up or return to the emergency department, and the expected course of current diagnosis. Patient condition: Stable Medical Decision Making Differential Diagnosis Differential Diagnosis: DVT PE cellulitis Discharge Plan Plan Patient Disposition: HOME (Self Care) Patient condition on transfer: Stable Prescriptions/Referrals Prescriptions/Med Rec: No Action gabapentin 300 mg capsule 300 mg PO TID lisinopril 20 MG tablet 20 mg PO BID Qty: 0 metformin 500 mg tablet 500 mg PO HS Patient Comments: TAKE 1 TABLET BY MOUTH EVERY DAY AT BEDTIME FOR DIABETES metoprolol tartrate 100 mg tablet 100 mg PO BID Patient Comments: TAKE 1 TABLET BY MOUTH TWICE A DAY FOR BLOOD PRESSURE ropinirole 0.25 mg Tablet 0.25 mg PO HS amiodarone 200 mg Tablet 200 mg PO QDAY atorvastatin 40 mg tablet 40 mg PO HS Patient Comments: TAKE 1 TABLET BY MOUTH AT BEDTIME FOR CHOLESTEROL meclizine 25 mg tablet 25 mg PO BID PRN (Reason: Dizziness) Patient Comments: TAKE 1-2 TABLETS BY MOUTH TWICE A DAY NEEDED FOR DIZZINESS tamsulosin [Flomax] 0.4 mg capsule 0.4 mg PO QDAY Qty: 7 0RF furosemide 20 mg tablet 20 mg PO QDAY Ozempic 1 mg/dose (4 mg/3 mL) pen injector 1 mg SUBCUT QWEEK Patient Comments: Rx Instructions: 1 time weekly duloxetine 30 mg capsule,delayed release(DR/EC) 30 mg PO QDAY finasteride 5 mg tablet 5 mg PO QDAY Patient Comments: TAKE 1 TABLET BY MOUTH EVERY DAY aspirin 81 mg tablet,delayed release (DR/EC) 81 mg PO DAILY Xarelto 20 mg tablet 20 mg PO QPM Rx Instructions: must administer with evening meal benzonatate 100 mg capsule 200 mg PO TID PRN (Reason: cough) allopurinol 100 mg tablet 100 mg PO DAILY Patient Comments: TAKE 2 TABS BY MOUTH 1 TIME A DAY FOR GOUT methimazole 10 mg tablet 20 mg PO DAILY multivitamin [Daily Multi-Vitamin] Tablet 1 tab PO QAM pantoprazole [Protonix] 40 mg tablet,delayed release (DR/EC) 40 mg PO QAM ibuprofen 600 mg tablet 600 mg PO [id number] PRN (Reason: pain) loratadine [Claritin] 10 mg tablet 10 mg PO QDAY PRN (Reason: allergic symptoms) ondansetron HCl 4 mg tablet 4 mg PO TID PRN (Reason: nausea and vomiting) albuterol sulfate 90 mcg/actuation HFA aerosol inhaler 2 puff INHALATION Q4H PRN (Reason: shortness of breath or wheezing) Patient Comments: TAKE 1-2 PUFFS BY MOUTH EVERY 4 HOURS INHALATION NEEDED Referrals: Akila Diaz PA-C [Primary Care Provider] - In 1 week Problem List Clinical Impression: DVT (deep venous thrombosis) Patient/Caregiver Discharge Instructions Education Materials: DVT Dc Additional Instructions: Take continue to take your Xarelto, follow-up with Dr. Ortega as stated. If there is a worsening of symptoms return the emergency room for reevaluation. Print Language: Faroese Stand Alone Forms: [employer] Award Info., Work/School Release, Patient Portal Info Letter PA/KARI Supervising Physician PA/KARI Supervising Physician: Tate East ENP
[2025-01-11 16:29] VITALS: BP 128/75; PULSE 88; RESP 16; O2SAT 98
== END 2025-01-11 16:31 | disposition home or self-care (01) ==
PROVIDERS: Emergency Provider Emergency Medicine; PCP Physician Assistant
DX: I82.431 Acute embolism and thrombosis of right popliteal vein (principal); I82.411 Acute embolism and thrombosis of right femoral vein; I82.451 Acute embolism and thrombosis of right peroneal vein
CPT/HCPCS: 93971; 99284

== ENCOUNTER 2025-01-22 16:27 | Emergency (ER) | payer MEDICAID, SELFPAY ==
[2025-01-22 17:31] VITALS: BP 154/97; PULSE 91; RESP 18; TEMP 36.6; O2SAT 95; BMI 38.9
--- NOTE | 2025-01-22 18:01 | XR_ITS ---
Examination: PA chest single view Technique: Upright AP chest single view Exam date and time: January 22, 2025 1827 hrs. Comparison January 07, 2025 Indications: Vomiting today Findings: Normal heart size. No aspiration pneumonia. The osseous structures are intact Impression: Negative for aspiration pneumonia
--- NOTE | 2025-01-22 18:01 | EKG_ITS ---
[facility] Test Date: 2025-01-22 Pat Name: DAVID RAJPUT Department: Room: - Gender: Male [employer]: : 1975 Requested By: Alin Welch Order Number: [id number] Reading MD: Alin Welch Measurements Intervals [place] Rate: 85 P: 38 [place]: 172 QRS: 35 QRSD: 86 T: 47 QT: 358 QTc: 427 Interpretive Statements SINUS RHYTHM POSSIBLE LEFT ATRIAL ENLARGEMENT [-0.1mV P-WAVE IN V1/V2] POSSIBLE RIGHT VENTRICULAR CONDUCTION DELAY [RSR (QR) IN V1/V2] NONSPECIFIC T-WAVE ABNORMALITY Compared to ECG 01/08/2025 06:23:58 No significant changes /store/S0/[id number]/[id number].pdf
--- NOTE | 2025-01-22 18:04 | PD.EDNV ---
Nausea/Vomit./Diarrhea-RME/HPI General Chief complaint: Nausea/Vomiting/Diarrhea Stated complaint: VOMITING Time Seen by Provider: 01/22/25 17:55 Arrival date/time: 01/22/25 16:27 RME / HPI RME / HPI Narrative: 49-year-old male patient with significant history of congestive heart failure, DVT, hypertension, diabetes mellitus, came in for evaluation regarding nausea and vomiting. Patient's been having nausea and vomiting, for the last few days, nonbloody. Patient denies any abdominal pain. Denies any fever denies any other complaints no medications taken prior to arrival. Related Data Home Medications ?Medication ?Instructions ?Recorded ?Confirmed lisinopril 20 mg tablet 20 mg PO BID #0 tabs 08/22/17 01/07/25 metoprolol tartrate 100 mg tablet 100 mg PO BID 03/14/21 01/07/25 metformin 500 mg tablet 500 mg PO HS 06/28/21 01/07/25 ropinirole 0.25 mg tablet 0.25 mg PO HS 10/03/21 01/07/25 amiodarone 200 mg tablet 200 mg PO QDAY 04/05/22 01/07/25 atorvastatin 40 mg tablet 40 mg PO HS 09/04/22 01/07/25 meclizine 25 mg tablet 25 mg PO BID PRN Dizziness 09/04/22 01/07/25 duloxetine 30 mg capsule,delayed 30 mg PO QDAY 10/24/23 01/07/25 release finasteride 5 mg tablet 5 mg PO QDAY 10/24/23 01/07/25 furosemide 20 mg tablet 20 mg PO QDAY 10/24/23 01/07/25 semaglutide 1 mg/dose (4 mg/3 mL) 1 mg subcut QWEEK 10/24/23 01/07/25 subcutaneous pen injector (Ozempic) gabapentin 300 mg capsule 300 mg PO TID 08/07/24 01/07/25 albuterol sulfate 90 mcg/actuation 2 puff inhalation Q4H PRN 01/07/25 01/07/25 aerosol inhaler shortness of breath or wheezing allopurinol 100 mg tablet 100 mg PO DAILY 01/07/25 01/07/25 aspirin 81 mg tablet,delayed 81 mg PO DAILY 01/07/25 01/07/25 release benzonatate 100 mg capsule 200 mg PO TID PRN cough 01/07/25 01/07/25 ibuprofen 600 mg tablet 600 mg PO [id number] PRN pain 01/07/25 01/07/25 loratadine 10 mg tablet (Claritin) 10 mg PO QDAY PRN allergic symptoms 01/07/25 01/07/25 methimazole 10 mg tablet 20 mg PO DAILY 01/07/25 01/07/25 multivitamin (Daily Multi-Vitamin 1 tab PO QAM 01/07/25 01/07/25 tablet) ondansetron HCl 4 mg tablet 4 mg PO TID PRN nausea and vomiting 01/07/25 01/07/25 pantoprazole 40 mg tablet,delayed 40 mg PO QAM 01/07/25 01/07/25 release (Protonix) rivaroxaban 20 mg tablet (Xarelto) 20 mg PO QPM 01/07/25 01/07/25 Previous Rx's ?Medication ?Instructions ?Recorded tamsulosin 0.4 mg capsule (Flomax) 0.4 mg PO QDAY #7 caps 08/23/24 ondansetron HCl 4 mg tablet 4 mg PO Q8H PRN nausea and 01/22/25 vomiting 5 days #20 tabs Allergies Allergy/AdvReac Type Severity Reaction Status Date / Time No Known Allergies Allergy Verified 01/22/25 16:29 Review of Systems Review of Systems Narrative Review of Systems: Review of system reviewed and within normal limits except mentioned in HPI ED Exam Narrative Physical exam: VITAL SIGNS: Reviewed. GENERAL APPEARANCE: Alert and interactive, follows commands, no acute distress, HEAD AND FACE: Non-traumatic. ENT: PERRL, pink conjunctivitis, eyelid no trauma, Mucous membrane moist. NECK: Supple, nontender, no nuchal rigidity. CHEST: No tenderness, no crepitus, no paradoxical movement, no retractions. LUNGS: Clear, well ventilated, symmetric, no rales, no wheezing, no ronchi, no stridor, good breath sounds bilaterally. HEART: Regular rate, regular rhythm, no murmur, no gallops. ABDOMEN: Soft, positive bowel sounds, nondistended, no guarding, nontender, no rebound, no masses, RECTAL: Deferred. GENITAL: Deferred. NEUROLOGICAL: Gross motor function intact sensory function intact, Appropriate for age. MUSCULOSKELETAL: low back nontender, full range of motion. EXTREMITIES: Nontender, full range of motion. SKIN: Color pink, dry, no rash, no lacerations, no abrasions, no contusions. LYMPHATICS: Deferred. Course Quality Measures none Orders Category Date Time Status EKG (ED ONLY) *Do not use* NOW Care 01/22/25 18:02 Completed EKG (ED Only) Stat Exams 01/22/25 18:01 Draft XR chest 1V Stat Exams 01/22/25 18:01 Completed B-Type Natriuretic Peptide Stat Lab 01/22/25 18:49 Completed CBC Stat Lab 01/22/25 18:49 Completed Comprehensive Metabolic Panel Stat Lab 01/22/25 18:49 Completed Partial Thromboplastin Time Stat Lab 01/22/25 18:49 Completed Prothrombin Time with INR Stat Lab 01/22/25 18:49 Completed Troponin I Stat Lab 01/22/25 18:49 Completed Urinalysis, C/S if Indicated Stat Lab 01/22/25 18:18 Completed Furosemide [Lasix] Med 01/22/25 18:04 Discontinued 40 mg PO X1 ONE Ondansetron Odt [Zofran Odt] Med 01/22/25 18:03 Discontinued 4 mg PO X1 ONE Pantoprazole [Protonix] Med 01/22/25 18:03 Discontinued 40 mg PO X1 ONE Vital Signs Vital signs: Vital Signs Temperature 97.9 F 01/22/25 17:31 Pulse Rate 91 01/22/25 17:31 Respiratory Rate 18 01/22/25 17:31 Blood Pressure 154/97 H 01/22/25 17:31 Pulse Oximetry (%) 95 01/22/25 17:31 Oxygen Delivery Method Room Air 01/22/25 17:31 Nausea/Vomiting/Diarrhea MDM Narrative MDM Narrative:: 49-year-old male patient with significant history of congestive heart failure, DVT, hypertension, diabetes mellitus, came in for evaluation regarding nausea and vomiting. Patient's been having nausea and vomiting, for the last few days, nonbloody. Patient denies any abdominal pain. Denies any fever denies any other complaints no medications taken prior to arrival. Patient's workup all came back unremarkable except for chronic elevation of troponin which is his baseline. Currently patient is not having any chest pain. Patient was given Zofran with complete resolution of symptoms no recurrence of vomiting noted in the emergency room. Patient appears nontoxic and hemodynamically stable. Patient discharged home and instructed to follow-up with primary care provider in 24 to 48 hours. Instructed to return to the emergency department immediately if worsening of symptoms Patient data External records reviewed:: None Clinical information provided by:: patient Social determinants that could affect healthcare access:: none Patient has the following chronic illnesses:: Diabetes mellitus hypertension, congestive heart failure How is presenting disease/condition affected by chronic disease/condition?: exacerbated by Evaluation data The following diagnostics were reviewed and interpreted by me:: lab results, radiology exam(s) and EKG tracing(s) Lab and/or radiology exams considered but not ordered:: None Interpretation Summary: EKG showed normal sinus rhythm, ventricular rate of 85 bpm, no ST segment elevation depression noted. I personally reviewed and interpreted the x-ray of this patient. There is no acute abnormalities found, no infiltrates no pneumothorax no hemothorax normal chest x-ray. Review of other structures was without significant abnormal findings also. I additionally reviewed the radiologist report and agree with the interpretation. Medications / Prescriptions Medications / Prescriptions considered but not ordered:: None Medication administrations:: Medication Administration History Discontinued Medications Furosemide (Furosemide 40 Mg Tablet) 40 mg PO X1 ONE Stop: 01/22/25 18:05 Last Admin: 01/22/25 19:03 Dose: 40 mg Documented By: Ondansetron HCl (Ondansetron Odt 4 Mg Tabrap) 4 mg PO X1 ONE; Protocol Stop: 01/22/25 18:04 Last Admin: 01/22/25 19:03 Dose: 4 mg Documented By: Pantoprazole Sodium (Pantoprazole 40 Mg Tablet) 40 mg PO X1 ONE Stop: 01/22/25 18:04 Last Admin: 01/22/25 19:03 Dose: 40 mg Documented By: Lasix, Zofran and Protonix Consultations Consultation(s) initiated? (list below): No Diagnosis Nausea Differential Diagnosis: food poisoning, gastroenteritis and drug-induced nausea and vomiting Most likely diagnosis given after review of the tests above:: Nausea and vomiting Admission Indicated Admission indicated?: not indicated Explain why admission is indicated or not indicated:: Stable Admission Request Was there a request for admission?: No Disposition Plan Disposition Plan: Discharge Discharge Attestation Discharge Attestation: The patient was given an opportunity to ask questions and understood the discharge instructions. Discharge instructions specifically effects, indications for sooner follow up or return to the emergency department, and the expected course of current diagnosis. Patient condition: Stable Discharge Plan Plan Patient Disposition: HOME (Self Care) Disposition Comment: stable Prescriptions/Referrals Prescriptions/Med Rec: New ondansetron HCl 4 mg tablet 4 mg PO Q8H PRN (Reason: nausea and vomiting) 5 Days Qty: 20 0RF No Action gabapentin 300 mg capsule 300 mg PO TID lisinopril 20 MG tablet 20 mg PO BID Qty: 0 metformin 500 mg tablet 500 mg PO HS Patient Comments: TAKE 1 TABLET BY MOUTH EVERY DAY AT BEDTIME FOR DIABETES metoprolol tartrate 100 mg tablet 100 mg PO BID Patient Comments: TAKE 1 TABLET BY MOUTH TWICE A DAY FOR BLOOD PRESSURE ropinirole 0.25 mg Tablet 0.25 mg PO HS amiodarone 200 mg Tablet 200 mg PO QDAY atorvastatin 40 mg tablet 40 mg PO HS Patient Comments: TAKE 1 TABLET BY MOUTH AT BEDTIME FOR CHOLESTEROL meclizine 25 mg tablet 25 mg PO BID PRN (Reason: Dizziness) Patient Comments: TAKE 1-2 TABLETS BY MOUTH TWICE A DAY NEEDED FOR DIZZINESS tamsulosin [Flomax] 0.4 mg capsule 0.4 mg PO QDAY Qty: 7 0RF furosemide 20 mg tablet 20 mg PO QDAY Ozempic 1 mg/dose (4 mg/3 mL) pen injector 1 mg SUBCUT QWEEK Patient Comments: [place] Rx Instructions: 1 time weekly duloxetine 30 mg capsule,delayed release(DR/EC) 30 mg PO QDAY finasteride 5 mg tablet 5 mg PO QDAY Patient Comments: TAKE 1 TABLET BY MOUTH EVERY DAY aspirin 81 mg tablet,delayed release (DR/EC) 81 mg PO DAILY Xarelto 20 mg tablet 20 mg PO QPM Rx Instructions: must administer with evening meal benzonatate 100 mg capsule 200 mg PO TID PRN (Reason: cough) allopurinol 100 mg tablet 100 mg PO DAILY Patient Comments: TAKE 2 TABS BY MOUTH 1 TIME A DAY FOR GOUT methimazole 10 mg tablet 20 mg PO DAILY multivitamin [Daily Multi-Vitamin] Tablet 1 tab PO QAM pantoprazole [Protonix] 40 mg tablet,delayed release (DR/EC) 40 mg PO QAM ibuprofen 600 mg tablet 600 mg PO [id number] PRN (Reason: pain) loratadine [Claritin] 10 mg tablet 10 mg PO QDAY PRN (Reason: allergic symptoms) ondansetron HCl 4 mg tablet 4 mg PO TID PRN (Reason: nausea and vomiting) albuterol sulfate 90 mcg/actuation HFA aerosol inhaler 2 puff INHALATION Q4H PRN (Reason: shortness of breath or wheezing) Patient Comments: TAKE 1-2 PUFFS BY MOUTH EVERY 4 HOURS INHALATION NEEDED Referrals: No Primary/Family,Physician [Primary Care Provider] - In 1 week Problem List Clinical Impression: Nausea & vomiting Patient/Caregiver Discharge Instructions Discharge Activity: activity as tolerated Education Materials: ED Vomiting (Adult) Additional Instructions: Thank you for the opportunity for serving you today. You are stable for discharged . You are advised to: Follow-up with your PCP in 1 to 2 days Return to ED for worsening of symptoms Take medication as prescribed Print Language: Thai Stand Alone Forms: [employer] Award Info., Patient Portal Info Letter PA/KARI Supervising Physician PA/KARI Supervising Physician: MD Catrachito
[2025-01-22 18:42] LABS: Collection Type, Urine Clean Catch
[2025-01-22 18:59] LABS: Basophils % (Auto) 0 % (0-2.5); Eosinophils # (Auto) 0.1 Thou/mm3 (0.0-0.5); Eosinophils % (Auto) 1 % (0-10); Hematocrit 48.3 % (41.0-53.0); Immature Granulocytes % (Auto) 0 % (0-0); Immature Granulocytes Auto 0.01 Thou/mm3 (0.00-0.00); Lymphocytes # (Auto) 1.6 Thou/mm3 (1.0-4.8); Lymphocytes % (Auto) 22 % (10-50); Mean Corpuscular HGB Conc 33.1 g/dl (31.0-37.0); Mean Corpuscular Hemoglobin 29.6 pg (25.0-35.0); Mean Corpuscular Volume 89 fL (80-100); Monocytes % (Auto) 14 % (0-12); Neutrophils # (Auto) 4.5 Thou/mm3 (1.8-7.7); Neutrophils % (Auto) 63 % (37-80); Nucleated Red Blood Cell % 0 /100 WBC (0); Platelet Count 300 Thou/mm3 (140-440); White Blood Count 7.1 Thou/mm3 (3.8-10.6)
[2025-01-22 19:02] LABS: Bilirubin,Urine Negative (Negative); Blood,Urine Negative (Negative); Clarity,Urine Clear (Clear/Hazy); Color,Urine Lt-Yellow (Lt Yel-Yel); Culture Indicated,Urine Not Indicated; Glucose, Urine Negative (Negative); Ketones,Urine Negative (Negative); Leukocyte Esterase,Urine Positive (Negative); Nitrite,Urine Negative (Negative); Protein,Urine Negative (Neg - Trace); RBC,Urine 5 /hpf (0-3); Specific Gravity,Urine 1.024 (1.001-1.035); Squamous Epithelial Cell,Urine < 1 /hpf (0-5); Urobilinogen,Urine Negative mg/dL (0.0-1.0); WBC,Urine 1 /hpf (0-5)
[2025-01-22 19:03] VITALS: BP 154/97; PULSE 91
[2025-01-22] MEDS: Furosemide 40 MG TABLET PO (19:03)
[2025-01-22] MEDS: ONDANSETRON ODT 4 MG TABRAP PO (19:03)
[2025-01-22] MEDS: PANTOPRAZOLE 40 MG TABLET PO (19:03)
[2025-01-22 19:28] LABS: B-Type Natriuretic Peptide 122 pg/mL (0-100); Partial Thromboplastin Time 26.8 Seconds (22.0-36.0); Prothrombin Time 11.3 Seconds (9.0-12.2)
[2025-01-22 19:55] LABS: Alanine Aminotransferase 25 U/L (10-49); Albumin/Globulin Ratio 1.5 (1.2-2.2); Alkaline Phosphatase 184 U/L (46-116); Anion Gap 9 (7-16); Aspartate Amino Transferase 22 U/L (0-34); BUN/Creatinine Ratio 11 Ratio (12-20); Bilirubin,Total 0.6 mg/dL (0.3-1.2); Blood Urea Nitrogen 13 mg/dL (9-23); Calcium 9.6 mg/dL (8.3-10.6); Calcium (Corrected) 9.6 mg/dL (8.5-10.1); Carbon Dioxide 27.5 mMol/L (20.0-31.0); Chloride 108 mMol/L (98-107); Creatinine (Component) 1.2 mg/dL (0.6-1.3); Estimated Creatinine Clearance 89.4 mL/min (>60); Globulin 2.7 gm/dL (2.3-3.5); Glucose 94 mg/dL (74-106); Osmolality,Calculated 286 (275-295); Potassium 4.2 mMol/L (3.4-5.1); Sodium 144 mMol/L (136-145); Total Protein 6.7 gm/dL (5.7-8.2); eGFR > 60 See Note
[2025-01-22 20:23] LABS: Troponin I 0.619 ng/mL (0.0-0.045)
[2025-01-22 23:00] VITALS: BP 149/88; PULSE 87
== END 2025-01-22 23:17 | disposition home or self-care (01) ==
PROVIDERS: Nurse Practitioner Family; Emergency Provider Emergency Medicine
DX: R11.2 Nausea with vomiting, unspecified (principal); I11.0 Hypertensive heart disease with heart failure; I50.9 Heart failure, unspecified; E11.9 Type 2 diabetes mellitus without complications; Z86.718 Personal history of other venous thrombosis and embolism
CPT/HCPCS: 36415; 71045; 80053; 81001; 83880; 84484; 85025; 85610; 85730; 93005; 99283; Q0162; A9270

== ENCOUNTER 2025-01-23 15:13 | Emergency (ER) | payer MEDICAID, SELFPAY ==
--- NOTE | 2025-01-23 15:44 | XR_ITS ---
EXAMINATION: US venous doppler LE RT HISTORY: recent DVT pain in leg now worse COMPARISON: 01/11/2025, lower extremity venous duplex. FINDINGS: Rivers scale, color doppler, and spectral waveforms of the right lower extremity veins. The right common femoral through mid femoral veins are without evidence of internal thrombus. Spectral Doppler imaging demonstrates normal wave forms. There is incomplete compressibility of the distal femoral vein with only partial color Doppler signal and flattening of the normal augmentation wave form. Popliteal, peroneal, and one of the 2 posterior tibial veins are compressible. There is flattening of the augmentation spectral Doppler wave forms throughout these veins. The second paired posterior tibial vein is not compressible and has only partial color Doppler signal. IMPRESSION: Partially occlusive thrombus in the right distal femoral and one of the paired tibial veins.
--- NOTE | 2025-01-23 15:45 | PD.EDRME ---
Rapid Medical Screening Exam RME Arrival date/time: 01/23/25 15:13 CC: Worsening right leg pain and swelling HPI patient was seen here on January 10 diagnosed with a DVT, is on Xarelto and has been taking the medicine regularly however patient now complains of increased swelling and increased pain in the leg in same location and as prior which is the medial thigh and in the calf. Patient denies fever shortness of breath or difficulty breathing. Family member at bedside assures me the patient has been taking his Xarelto as prescribed. Family member also states the patient has an outpatient referral for vascular specialist in [place]. Awaiting appointment. Chief Complaint: Extremity Injury, Lower Time Seen by Provider: 01/23/25 15:19
[2025-01-23 15:48] VITALS: BP 122/77; PULSE 88; RESP 18; TEMP 36.9; O2SAT 98; BMI 31.2
--- NOTE | 2025-01-23 16:49 | PD.EDADULT ---
ED General RME/HPI General Chief complaint: Extremity Injury, Lower Stated complaint: RIGHT LOWER LEG SWELLING/WARMTH Time Seen by Provider: 01/23/25 15:19 Arrival date/time: 01/23/25 15:13 CC: Right leg pain and swelling worsening from January 10 HPI patient was diagnosed in a DVT and now is on Xarelto. There is been a worsening of the symptoms and now the patient is here to be checked out again . Patient denies fever chills shortness of breath difficulty breathing. No other complaints RME / HPI RME / HPI narrative: 01/23/25 15:13 CC: Worsening right leg pain and swelling HPI patient was seen here on January 10 diagnosed with a DVT, is on Xarelto and has been taking the medicine regularly however patient now complains of increased swelling and increased pain in the leg in same location and as prior which is the medial thigh and in the calf. Patient denies fever shortness of breath or difficulty breathing. Family member at bedside assures me the patient has been taking his Xarelto as prescribed. Family member also states the patient has an outpatient referral for vascular specialist in [place]. Awaiting appointment. Related Data Home Medications ?Medication ?Instructions ?Recorded ?Confirmed lisinopril 20 mg tablet 20 mg PO BID #0 tabs 08/22/17 01/07/25 metoprolol tartrate 100 mg tablet 100 mg PO BID 03/14/21 01/07/25 metformin 500 mg tablet 500 mg PO HS 06/28/21 01/07/25 ropinirole 0.25 mg tablet 0.25 mg PO HS 10/03/21 01/07/25 amiodarone 200 mg tablet 200 mg PO QDAY 04/05/22 01/07/25 atorvastatin 40 mg tablet 40 mg PO HS 09/04/22 01/07/25 meclizine 25 mg tablet 25 mg PO BID PRN Dizziness 09/04/22 01/07/25 duloxetine 30 mg capsule,delayed 30 mg PO QDAY 10/24/23 01/07/25 release finasteride 5 mg tablet 5 mg PO QDAY 10/24/23 01/07/25 furosemide 20 mg tablet 20 mg PO QDAY 10/24/23 01/07/25 semaglutide 1 mg/dose (4 mg/3 mL) 1 mg subcut QWEEK 10/24/23 01/07/25 subcutaneous pen injector (Ozempic) gabapentin 300 mg capsule 300 mg PO TID 08/07/24 01/07/25 albuterol sulfate 90 mcg/actuation 2 puff inhalation Q4H PRN 01/07/25 01/07/25 aerosol inhaler shortness of breath or wheezing allopurinol 100 mg tablet 100 mg PO DAILY 01/07/25 01/07/25 aspirin 81 mg tablet,delayed 81 mg PO DAILY 01/07/25 01/07/25 release benzonatate 100 mg capsule 200 mg PO TID PRN cough 01/07/25 01/07/25 ibuprofen 600 mg tablet 600 mg PO [id number] PRN pain 01/07/25 01/07/25 loratadine 10 mg tablet (Claritin) 10 mg PO QDAY PRN allergic symptoms 01/07/25 01/07/25 methimazole 10 mg tablet 20 mg PO DAILY 01/07/25 01/07/25 multivitamin (Daily Multi-Vitamin 1 tab PO QAM 01/07/25 01/07/25 tablet) ondansetron HCl 4 mg tablet 4 mg PO TID PRN nausea and vomiting 01/07/25 01/07/25 pantoprazole 40 mg tablet,delayed 40 mg PO QAM 01/07/25 01/07/25 release (Protonix) rivaroxaban 20 mg tablet (Xarelto) 20 mg PO QPM 01/07/25 01/07/25 Previous Rx's ?Medication ?Instructions ?Recorded tamsulosin 0.4 mg capsule (Flomax) 0.4 mg PO QDAY #7 caps 08/23/24 ondansetron HCl 4 mg tablet 4 mg PO Q8H PRN nausea and 01/22/25 vomiting 5 days #20 tabs Allergies Allergy/AdvReac Type Severity Reaction Status Date / Time No Known Allergies Allergy Verified 01/22/25 16:29 Review of Systems Review of Systems Narrative Review of Systems: GEN: No fever, no chills, no weight loss EYES: No discharge, no visual changes, no pain HEENT: No ear pain, no congestion, no sore throat PULM: No shortness of breath, no cough, no congestion CV: No chest pain, no dyspnea on exertion, no palpitations GI: No nausea, no vomiting, no diarrhea, no pain, no constipation : No frequency, no urgency, no dysuria MUSC/SKEL: No joint pain, no back pain,+ left lower extremity pain SKIN: No rash PSYCH: No hallucinations, no depression HEME/LYMPH: No easy bleeding or bruising tendencies NEURO: No weakness, no headache ED Exam Narrative Physical exam: [General: Obese not in any acute distress Head normocephalic HEENT: Within acceptable limits Neck is supple nontender Chest equal chest rise nontender to palpation Respiratory: Clear to auscultation no wheezes crackles or rubs CV: Rate rhythm is regular no murmurs rubs or clicks Abdomen is distended secondary to body habitus soft nontender no masses positive bowel sounds all 4 quadrants Back: No CVA tenderness no spinous process tenderness from cervical spine thoracic and lumbar spine Skin: Intact no petechiae rash induration ulceration or crepitus Extremities: Subtle edema in the left lower extremity, mild tenderness with palpation of the medial thigh, mild tenderness to the calf. Moving all extremities against resistance cap refill less than 2 seconds neurosensory intact Neuro: Awake alert oriented x3 Glascow coma 15 no focal deficits] Course Quality Measures none Orders Category Date Time Status US venous doppler LE RT Stat Exams 01/23/25 15:44 Completed Vital Signs Vital signs: Vital Signs Temperature 98.5 F 01/23/25 15:48 Pulse Rate 88 01/23/25 15:48 Respiratory Rate 18 01/23/25 15:48 Blood Pressure 122/77 01/23/25 15:48 Pulse Oximetry (%) 98 01/23/25 15:48 Oxygen Delivery Method Room Air 01/23/25 15:48 [facility] Patient data External records reviewed:: [facility] previous records Clinical information provided by:: patient and family Social determinants that could affect healthcare access:: none Patient has the following chronic illnesses:: DVT in the left leg How is presenting disease/condition affected by chronic disease/condition?: uneffected by Evaluation data The following diagnostics were reviewed and interpreted by me:: radiology exam(s) Lab and/or radiology exams considered but not ordered:: Ultrasound shows no change in the DVT. Interpretation Summary: Continue DVT in the left leg Medications Medications considered but not ordered:: None Medication administrations:: None Consultations Consultation(s) initiated? (list below): No Diagnosis Differential Diagnosis ED Complaint MDM: DVT superficial thrombophlebitis arterial occlusion Most likely diagnosis given after review of the tests above:: DVT Admission Indicated Admission indicated?: not indicated Explain why admission is indicated or not indicated:: Stable for discharge Admission Request Was there a request for admission?: No Disposition Plan Disposition Plan: Discharge Discharge Attestation Discharge Attestation: The patient and all family members were given an opportunity to ask questions and understood the discharge instructions. Discharge instructions specifically effects, indications for sooner follow up or return to the emergency department, and the expected course of current diagnosis. Patient condition: Stable Medical Decision Making Differential Diagnosis Differential Diagnosis: DVT superficial thrombophlebitis arterial occlusion Discharge Plan Plan Patient Disposition: HOME (Self Care) Patient condition on transfer: Stable Prescriptions/Referrals Prescriptions/Med Rec: No Action gabapentin 300 mg capsule 300 mg PO TID lisinopril 20 MG tablet 20 mg PO BID Qty: 0 metformin 500 mg tablet 500 mg PO HS Patient Comments: TAKE 1 TABLET BY MOUTH EVERY DAY AT BEDTIME FOR DIABETES metoprolol tartrate 100 mg tablet 100 mg PO BID Patient Comments: TAKE 1 TABLET BY MOUTH TWICE A DAY FOR BLOOD PRESSURE ropinirole 0.25 mg Tablet 0.25 mg PO HS amiodarone 200 mg Tablet 200 mg PO QDAY atorvastatin 40 mg tablet 40 mg PO HS Patient Comments: TAKE 1 TABLET BY MOUTH AT BEDTIME FOR CHOLESTEROL meclizine 25 mg tablet 25 mg PO BID PRN (Reason: Dizziness) Patient Comments: TAKE 1-2 TABLETS BY MOUTH TWICE A DAY NEEDED FOR DIZZINESS tamsulosin [Flomax] 0.4 mg capsule 0.4 mg PO QDAY Qty: 7 0RF ondansetron HCl 4 mg tablet 4 mg PO Q8H PRN (Reason: nausea and vomiting) 5 Days Qty: 20 0RF furosemide 20 mg tablet 20 mg PO QDAY Ozempic 1 mg/dose (4 mg/3 mL) pen injector 1 mg SUBCUT QWEEK Patient Comments: Rx Instructions: 1 time weekly duloxetine 30 mg capsule,delayed release(DR/EC) 30 mg PO QDAY finasteride 5 mg tablet 5 mg PO QDAY Patient Comments: TAKE 1 TABLET BY MOUTH EVERY DAY aspirin 81 mg tablet,delayed release (DR/EC) 81 mg PO DAILY Xarelto 20 mg tablet 20 mg PO QPM Rx Instructions: must administer with evening meal benzonatate 100 mg capsule 200 mg PO TID PRN (Reason: cough) allopurinol 100 mg tablet 100 mg PO DAILY Patient Comments: TAKE 2 TABS BY MOUTH 1 TIME A DAY FOR GOUT methimazole 10 mg tablet 20 mg PO DAILY multivitamin [Daily Multi-Vitamin] Tablet 1 tab PO QAM pantoprazole [Protonix] 40 mg tablet,delayed release (DR/EC) 40 mg PO QAM ibuprofen 600 mg tablet 600 mg PO [id number] PRN (Reason: pain) loratadine [Claritin] 10 mg tablet 10 mg PO QDAY PRN (Reason: allergic symptoms) ondansetron HCl 4 mg tablet 4 mg PO TID PRN (Reason: nausea and vomiting) albuterol sulfate 90 mcg/actuation HFA aerosol inhaler 2 puff INHALATION Q4H PRN (Reason: shortness of breath or wheezing) Patient Comments: TAKE 1-2 PUFFS BY MOUTH EVERY 4 HOURS INHALATION NEEDED Problem List Clinical Impression: DVT (deep venous thrombosis) Patient/Caregiver Discharge Instructions Education Materials: DVT Dc Print Language: Mongolian Stand Alone Forms: [employer] Award Info., Work/School Release, Patient Portal Info Letter PA/COMMODITIES MANAGER Supervising Physician PA/COMMODITIES MANAGER Supervising Physician: Tate East ENP
== END 2025-01-23 17:43 | disposition home or self-care (01) ==
LOC: SERX 17:02
PROVIDERS: Emergency Provider Emergency Medicine; PCP Physician Assistant
DX: I82.411 Acute embolism and thrombosis of right femoral vein (principal); I82.441 Acute embolism and thrombosis of right tibial vein
CPT/HCPCS: 93971; 99284

== ENCOUNTER 2025-01-26 20:30 | Observation (INO) | payer MEDICAID, SELFPAY ==
[2025-01-26 20:43] VITALS: PULSE 89; O2SAT 96
[2025-01-26 20:46] VITALS: BMI 39.9
[2025-01-26 22:07] VITALS: BP 162/91; PULSE 100; RESP 18; TEMP 36.9; O2SAT 95
--- NOTE | 2025-01-26 22:30 | EKG_ITS ---
[facility] Test Date: 2025-01-26 Pat Name: DAVID RAJPUT Department: Room: - Gender: Male Route Returner: : 1975 Requested By: Satish Wilcox Order Number: [id number] Reading MD: Satish Wilcox Measurements Intervals [place] Rate: 93 P: 58 NV: 169 QRS: 50 QRSD: 93 T: 48 QT: 329 QTc: 411 Interpretive Statements SINUS RHYTHM POSSIBLE LEFT ATRIAL ENLARGEMENT [-0.1mV P-WAVE IN V1/V2] INCOMPLETE RIGHT BUNDLE BRANCH BLOCK [90+ ms QRS DURATION, TERMINAL R IN V1/V2, 40+ ms S IN I/aVL/V4/V5/V6] Compared to ECG 01/22/2025 18:43:20 Incomplete right bundle-branch block now present T-wave abnormality no longer present /store/S0/[id number]/ecg/[id number].pdf
--- NOTE | 2025-01-26 22:32 | PD.EDRME ---
Rapid Medical Screening Exam RME Arrival date/time: 01/26/25 20:30 Chief Complaint: Shortness of Breath/Dyspnea Time Seen by Provider: 01/26/25 22:06 Vital signs: Vital Signs Temperature 98.4 F 01/26/25 22:07 Pulse Rate 100 01/26/25 22:07 Respiratory Rate 18 01/26/25 22:07 Blood Pressure 162/91 H 01/26/25 22:07 Pulse Oximetry (%) 95 01/26/25 22:07 Oxygen Delivery Method Room Air 01/26/25 22:07 Vital signs reviewed by provider: Yes RME Narrative: 49-year-old male with known history of right lower extremity DVT on Xarelto presents with chest pain and cough x 1 day. He describes cough is dry with intermittent bilateral lower chest pain. Patient reports that he has an appointment with the vascular surgeon at 0730 tomorrow for further planning and management of DVT.
[2025-01-26 23:17] LABS: Basophils % (Auto) 0 % (0-2.5); Eosinophils # (Auto) 0.1 Thou/mm3 (0.0-0.5); Eosinophils % (Auto) 1 % (0-10); Hematocrit 52.2 % (41.0-53.0); Hemoglobin 17.5 g/dL (13.5-16.0); Immature Granulocytes % (Auto) 0 % (0-0); Immature Granulocytes Auto 0.02 Thou/mm3 (0.00-0.00); Lymphocytes # (Auto) 1.9 Thou/mm3 (1.0-4.8); Lymphocytes % (Auto) 25 % (10-50); Mean Corpuscular HGB Conc 33.5 g/dl (31.0-37.0); Mean Corpuscular Hemoglobin 29.1 pg (25.0-35.0); Mean Corpuscular Volume 87 fL (80-100); Monocytes % (Auto) 13 % (0-12); Neutrophils # (Auto) 4.6 Thou/mm3 (1.8-7.7); Neutrophils % (Auto) 60 % (37-80); Nucleated Red Blood Cell % 0 /100 WBC (0); Platelet Count 183 Thou/mm3 (140-440); Red Blood Count 6.02 Miln/mm3 (4.50-5.90); White Blood Count 7.7 Thou/mm3 (3.8-10.6)
[2025-01-26 23:25] LABS: INR 1.1 (0.9-1.3); Prothrombin Time 12.2 Seconds (9.0-12.2)
[2025-01-26 23:50] LABS: Alanine Aminotransferase 40 U/L (10-49); Albumin, Serum 4.3 gm/dL (3.5-5.0); Albumin/Globulin Ratio 1.4 (1.2-2.2); Alkaline Phosphatase 201 U/L (46-116); Anion Gap 11 (7-16); Aspartate Amino Transferase 31 U/L (0-34); BUN/Creatinine Ratio 10 Ratio (12-20); Bilirubin,Total 0.5 mg/dL (0.3-1.2); Blood Urea Nitrogen 11 mg/dL (9-23); Carbon Dioxide 24.8 mMol/L (20.0-31.0); Chloride 108 mMol/L (98-107); Creatinine (Component) 1.1 mg/dL (0.6-1.3); Estimated Creatinine Clearance 92.4 mL/min (>60); Globulin 3.1 gm/dL (2.3-3.5); Glucose 99 mg/dL (74-106); Osmolality,Calculated 286 (275-295); Potassium 4.1 mMol/L (3.4-5.1); Sodium 144 mMol/L (136-145); Total Protein 7.4 gm/dL (5.7-8.2); eGFR > 60 See Note
[2025-01-26 23:53] LABS: Troponin I 0.588 ng/mL (0.0-0.045)
[2025-01-26 23:57] VITALS: BP 147/78; PULSE 99; RESP 19; TEMP 36.6; O2SAT 96
[2025-01-27] VITALS (9 sets, daily range): BP systolic 116–171; BP diastolic 74–99; PULSE 82–113; RESP 12–98; TEMP 36.3–36.7; O2SAT 97–98
--- NOTE | 2025-01-27 09:12 | PD.EDADULT ---
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 He reports cough is dry with intermittent bilateral lower chest pain started several days ago. Patient is poor historian. He is accompanied by his roommate who provides most of the history. She reports that patient mostly stays home and is taking more than 20 different medications. He reports pain in bilateral lower extremities, shortness of breath and chest pain which is reproducible by deep breathing and applying pressure on his chest. He reports he was having nausea and was vomiting several times a day over the last 3 days. He also reports generalized weakness and low energy. Patient reports that he has an appointment with the vascular surgeon Dr. John at 07:30 AM today for further planning and management of DVT. Patient denies abdominal pain, diarrhea, dysuria symptoms. Related Data Home Medications ?Medication ?Instructions ?Recorded ?Confirmed lisinopril 20 mg tablet 20 mg PO BID #0 tabs 08/22/17 01/07/25 metoprolol tartrate 100 mg tablet 100 mg PO BID 03/14/21 01/07/25 metformin 500 mg tablet 500 mg PO HS 06/28/21 01/07/25 ropinirole 0.25 mg tablet 0.25 mg PO HS 10/03/21 01/07/25 amiodarone 200 mg tablet 200 mg PO QDAY 04/05/22 01/07/25 atorvastatin 40 mg tablet 40 mg PO HS 09/04/22 01/07/25 meclizine 25 mg tablet 25 mg PO BID PRN Dizziness 09/04/22 01/07/25 duloxetine 30 mg capsule,delayed 30 mg PO QDAY 10/24/23 01/07/25 release finasteride 5 mg tablet 5 mg PO QDAY 10/24/23 01/07/25 furosemide 20 mg tablet 20 mg PO QDAY 10/24/23 01/07/25 semaglutide 1 mg/dose (4 mg/3 mL) 1 mg subcut QWEEK 10/24/23 01/07/25 subcutaneous pen injector (Ozempic) gabapentin 300 mg capsule 300 mg PO TID 08/07/24 01/07/25 albuterol sulfate 90 mcg/actuation 2 puff inhalation Q4H PRN 01/07/25 01/07/25 aerosol inhaler shortness of breath or wheezing allopurinol 100 mg tablet 100 mg PO DAILY 01/07/25 01/07/25 aspirin 81 mg tablet,delayed 81 mg PO DAILY 01/07/25 01/07/25 release benzonatate 100 mg capsule 200 mg PO TID PRN cough 01/07/25 01/07/25 ibuprofen 600 mg tablet 600 mg PO [id number] PRN pain 01/07/25 01/07/25 loratadine 10 mg tablet (Claritin) 10 mg PO QDAY PRN allergic symptoms 01/07/25 01/07/25 methimazole 10 mg tablet 20 mg PO DAILY 01/07/25 01/07/25 multivitamin (Daily Multi-Vitamin 1 tab PO QAM 01/07/25 01/07/25 tablet) ondansetron HCl 4 mg tablet 4 mg PO TID PRN nausea and vomiting 01/07/25 01/07/25 pantoprazole 40 mg tablet,delayed 40 mg PO QAM 01/07/25 01/07/25 release (Protonix) rivaroxaban 20 mg tablet (Xarelto) 20 mg PO QPM 01/07/25 01/07/25 Previous Rx's ?Medication ?Instructions ?Recorded tamsulosin 0.4 mg capsule (Flomax) 0.4 mg PO QDAY #7 caps 08/23/24 ondansetron HCl 4 mg tablet 4 mg PO Q8H PRN nausea and 01/22/25 vomiting 5 days #20 tabs Allergies Allergy/AdvReac Type Severity Reaction Status Date / Time No Known Allergies Allergy Verified 01/22/25 16:29 Review of Systems Review of Systems Systems Reviewed: All systems reviewed, normal except as documented ED Exam Narrative Physical exam: Gen: Well-developed and well-nourished male. HEENT: NCAT, PERRLA, EOMI, MMM, anicteric conjunctivae. CVS: normal S1 and S2. RRR. No M/R/G. Resp: CTA B/L. No rhonchi, rales, crackles or wheezing. Abd: soft, obese, non-tender, mildly distended. BS+ in all 4 quadrants. MSK: Good ROM in BUE & BLE. No rash. BLE venous stasis dermatitis. 2+ pitting edema RLE. 1+ pitting edema LLE. Neuro: CN II-XII grossly intact. Strength 5/5 in BUE & BLE. Alert and oriented x3. Course Quality Measures VTE therapy Orders Category Date Time Status Bedside COVID-19 Antigen Test NOW Care 01/26/25 22:30 Active Bedside Influenza A&B Antigen Test NOW Care 01/26/25 22:31 Completed COVID-19 Screening Questionnaire NOW Care 01/27/25 16:[address] Screening NOW Care 01/26/25 22:[address] Screening NOW Care 01/27/25 12:[address] Screening NOW Care 01/27/25 12:53 Active Decision to Admit X1 Care 01/27/25 16:35 Active EKG (ED ONLY) *Do not use* NOW Care 01/26/25 22:30 Completed Insert IV NOW Care 01/26/25 22:[address] abdomen pelvis w con Stat Exams 01/27/25 12:[address] angio chest Stat Exams 01/27/25 12:05 Completed EKG (ED Only) Stat Exams 01/26/25 22:30 Draft CBC Stat Lab 01/26/25 22:44 Completed CMP [Comprehensive Metabolic Panel] Stat Lab 01/26/25 22:44 Completed INR [Prothrombin Time with INR] Stat Lab 01/26/25 22:44 Completed Troponin I Stat Lab 01/26/25 22:44 Completed Urinalysis Stat Lab 01/27/25 12:44 Ordered LORazepam [Ativan Inj] Med 01/27/25 13:01 Discontinued 2 mg IVP X1 ONE Vital Signs Vital signs: Vital Signs Temperature 98.4 F 01/26/25 22:07 Pulse Rate 100 01/26/25 22:07 Respiratory Rate 18 01/26/25 22:07 Blood Pressure 162/91 H 01/26/25 22:07 Pulse Oximetry (%) 95 01/26/25 22:07 Oxygen Delivery Method Room Air 01/26/25 22:07 Procedures -ED EKG Interpretation #1: Date of EK01/26/25 Time of EK:36 Rate: 93 Interpretation: Reviewed by me EKG Impression: Normal sinus rhythm and Bundle branch block MDM Patient data External records reviewed:: [facility] previous records Clinical information provided by:: patient and friend Social determinants that could affect healthcare access:: none Patient has the following chronic illnesses:: right lower extremity DVT on Xarelto, hypertension, diabetes, depression, AYLEEN, BPH How is presenting disease/condition affected by chronic disease/condition?: exacerbated by Evaluation data The following diagnostics were reviewed and interpreted by me:: lab results and EKG tracing(s) Lab and/or radiology exams considered but not ordered:: CXR Interpretation Summary: Polycytemia, troponinemia, elevated alk phos, PE, IVF thrombosis Medications Medications considered but not ordered:: none Medication administrations:: Medication Administration History Discontinued Medications Lorazepam (Lorazepam 2 Mg/Ml Vial) 2 mg IVP X1 ONE Stop: 01/27/25 13:02 Last Admin: 01/27/25 13:30 Dose: Not Given Documented By: ZO Non-Admin Reason: Discontinued none Consultations Consultation(s) initiated? (list below): No Diagnosis Differential Diagnosis ED Complaint MDM: PE, CAP, anxiety, STEMI/NSTEMI Most likely diagnosis given after review of the tests above:: PE Admission Indicated Admission indicated?: indicated Explain why admission is indicated or not indicated:: Patient has DVT which was diagnosed 2 weeks ago and he was started on Xarelto, today he was found to have small PE and IVF thrombosis. He had vascular surgery visit scheduled for today but missed it due to ED visit. Admission Request Was there a request for admission?: Yes Admission Attestation Admission request attestation: Discussed case with [] from Hospitalist service regarding admission. Discussed patients ED course, exam findings, labs, and radiology results. The Hospitalist [agrees,declines] to accept the patient for admission. 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 He was hypertensive on presentation, other vitals were WNL. Labs showed Hgb 17.5, Cl 108, Cr 1.1, alk phos 201, troponin I 0.588 which is chronically elevated based on prior multiple visits. EKG showed sinus rhythm with left atrial enlargement. Well's score for PE was 4.5 moderate risk therefore CTA was done showing small pulmonary artery emboli in right lower lobe pulmonary artery branches. CTAP showed thrombus in the inferior vena cava. Admission was requested for further management as the patient has failed DVT treatment with Xarelto. Differential Diagnosis Differential Diagnosis: PE, CAP, anxiety, STEMI/NSTEMI Lab Data 01/26/25 22:44 01/26/25 22:44 Labs: Lab Results 01/26/25 Range/Units 22:44 WBC 7.7 (3.8-10.6) Thou/mm3 RBC 6.02 H (4.50-5.90) Miln/mm3 Hgb 17.5 H (13.5-16.0) g/dL Hct 52.2 (41.0-53.0) % MCV 87 (80-100) fL MCH 29.1 (25.0-35.0) pg MCHC 33.5 (31.0-37.0) g/dl RDW Std Deviation 39.0 (35.1-43.9) fL Plt Count 183 D (140-440) Thou/mm3 Neut % (Auto) 60 (37-80) % Lymph % (Auto) 25 (10-50) % [place] % (Auto) 13 H (0-12) % Eos % (Auto) 1 (0-10) % Baso % (Auto) 0 (0-2.5) % Neut # (Auto) 4.6 (1.8-7.7) Thou/mm3 Lymph # (Auto) 1.9 (1.0-4.8) Thou/mm3 [place] # (Auto) 1.0 H (0.0-0.8) Thou/mm3 Eos # (Auto) 0.1 (0.0-0.5) Thou/mm3 Baso # (Auto) 0.0 (0.0-0.2) Thou/mm3 Immature Gran # (Auto) 0.02 H (0.00-0.00) Thou/mm3 Absolute Nucleated RBC 0.00 (0.00-0.00) Thou/mm3 Immature Gran % 0 (0-0) % Nucleated RBC % 0 (0) /100 WBC PT 12.2 (9.0-12.2) Seconds INR 1.1 (0.9-1.3) Sodium 144 (136-145) mMol/L Potassium 4.1 (3.4-5.1) mMol/L Chloride 108 H (98-107) mMol/L Carbon Dioxide 24.8 (20.0-31.0) mMol/L Anion Gap 11 (7-16) BUN 11 (9-23) mg/dL Creatinine 1.1 (0.6-1.3) mg/dL Estim Creat Clear Calc 92.4 (>60) mL/min eGFR > 60 (60 - ) See Note BUN/Creatinine Ratio 10 L (12-20) Ratio Glucose 99 (74-106) mg/dL Calculated Osmolality 286 (275-295) Calcium 10.0 (8.3-10.6) mg/dL Corrected Calcium 10.0 (8.5-10.1) mg/dL Total Bilirubin 0.5 (0.3-1.2) mg/dL AST 31 (0-34) U/L ALT 40 (10-49) U/L Alkaline Phosphatase 201 H (46-116) U/L Troponin I 0.588 H* (0.0-0.045) ng/mL Total Protein 7.4 (5.7-8.2) gm/dL Albumin 4.3 (3.5-5.0) gm/dL Globulin 3.1 (2.3-3.5) gm/dL Albumin/Globulin Ratio 1.4 (1.2-2.2) Discharge Plan Plan Patient Disposition: Admit Acute Care w/in Hospital Disposition Comment: Hospitalist admit Patient condition on transfer: Stable Prescriptions/Referrals Prescriptions/Med Rec: No Action gabapentin 300 mg capsule 300 mg PO TID lisinopril 20 MG tablet 20 mg PO BID Qty: 0 metformin 500 mg tablet 500 mg PO HS Patient Comments: TAKE 1 TABLET BY MOUTH EVERY DAY AT BEDTIME FOR DIABETES metoprolol tartrate 100 mg tablet 100 mg PO BID Patient Comments: TAKE 1 TABLET BY MOUTH TWICE A DAY FOR BLOOD PRESSURE ropinirole 0.25 mg Tablet 0.25 mg PO HS amiodarone 200 mg Tablet 200 mg PO QDAY atorvastatin 40 mg tablet 40 mg PO HS Patient Comments: TAKE 1 TABLET BY MOUTH AT BEDTIME FOR CHOLESTEROL meclizine 25 mg tablet 25 mg PO BID PRN (Reason: Dizziness) Patient Comments: TAKE 1-2 TABLETS BY MOUTH TWICE A DAY NEEDED FOR DIZZINESS tamsulosin [Flomax] 0.4 mg capsule 0.4 mg PO QDAY Qty: 7 0RF ondansetron HCl 4 mg tablet 4 mg PO Q8H PRN (Reason: nausea and vomiting) 5 Days Qty: 20 0RF furosemide 20 mg tablet 20 mg PO QDAY Ozempic 1 mg/dose (4 mg/3 mL) pen injector 1 mg SUBCUT QWEEK Patient Comments: Rx Instructions: 1 time weekly duloxetine 30 mg capsule,delayed release(DR/EC) 30 mg PO QDAY finasteride 5 mg tablet 5 mg PO QDAY Patient Comments: TAKE 1 TABLET BY MOUTH EVERY DAY aspirin 81 mg tablet,delayed release (DR/EC) 81 mg PO DAILY Xarelto 20 mg tablet 20 mg PO QPM Rx Instructions: must administer with evening meal benzonatate 100 mg capsule 200 mg PO TID PRN (Reason: cough) allopurinol 100 mg tablet 100 mg PO DAILY Patient Comments: TAKE 2 TABS BY MOUTH 1 TIME A DAY FOR GOUT methimazole 10 mg tablet 20 mg PO DAILY multivitamin [Daily Multi-Vitamin] Tablet 1 tab PO QAM pantoprazole [Protonix] 40 mg tablet,delayed release (DR/EC) 40 mg PO QAM ibuprofen 600 mg tablet 600 mg PO [id number] PRN (Reason: pain) loratadine [Claritin] 10 mg tablet 10 mg PO QDAY PRN (Reason: allergic symptoms) ondansetron HCl 4 mg tablet 4 mg PO TID PRN (Reason: nausea and vomiting) albuterol sulfate 90 mcg/actuation HFA aerosol inhaler 2 puff INHALATION Q4H PRN (Reason: shortness of breath or wheezing) Patient Comments: TAKE 1-2 PUFFS BY MOUTH EVERY 4 HOURS INHALATION NEEDED Referrals: No Primary/Family,Physician [Primary Care Provider] - In 1 week Problem List Clinical Impression: Pulmonary embolism, Deep vein thrombophlebitis of right leg, Nausea & vomiting, Polypharmacy Patient/Caregiver Discharge Instructions Print Language: Icelandic Stand Alone Forms: [employer] Award Info., Patient Portal Info Letter MD Attestation Attestation I, Kalin Akins MD, have reviewed the history, exam, and assessment of the patient. I have evaluated the patient independently and agree with the plan of care documented by [ ]. All diagnostic studies were reviewed and discussed. I confirm the diagnosis as documented by the Resident. I was present during the Medical Decision Making for this patient. The patient's plan of care was created between myself and the Resident and consistent with our discussion of the patient's case. I note this patient presents with multiple somatic complaints waited a long time in the waiting room to be evaluated because we had high ED volumes and acuities. I went and saw this patient he is cordial he is not laying flat he has no complaints appears to have some cognitive issues or developmental delays. Nonetheless he was in no distress. He was complaining of nausea vomiting and shortness of breath which was new he is recently diagnosed with DVT. Evidently has a filter on his left leg but not the right.. CTA came back positive for pulmonary embolus. The resident contacted the hospitalist on-call and they are admitting the patient. Note he is on Xarelto and has failed outpatient management with this and patient reported taking his medicines as prescribed.
--- NOTE | 2025-01-27 10:05 | PC.NURSE ---
0945: PRIMARY RN ASKED ME TO AMBULATE PATIENT AND CHECK O2 SATS POST AMBULATION PATIENT IS C/O DIZZINESS AND LIGHT HEADED FEELING. NOT SAFE TO AMBULATE PATIENT AT THIS TIME.
--- NOTE | 2025-01-27 12:05 | XR_ITS ---
Examination: CTA chest with intravenous contrast 2-D reconstructions 3-D reconstructions, vascular Date and time of exam: Arch 18 2024 1509 hours INDICATIONS: Shortness of breath chest pain beginning 3 days ago, recent DVT history CTDI: vol (mGy) 13.7 DLP: (mGycm) 432 Technique: Multiple axial sections of the thorax have been obtained. 3 mm slice thickness, from below the hemidiaphragms to above the apices of the lungs. Mediastinal and lung density settings have been obtained. 2-D sagittal and coronal reconstructions. 3-D angiographic renderings, 3-D volume renderings, 3D post processing, vascular maximum intensity projections obtained. Contrast administered is 100 cc Isovue-370. Low dose protocols were performed. One or more of the following dose reduction techniques were used; automated exposure control, adjustment of the mA and/or KV according to patient size, use of iterative reconstruction technique. Findings: AP dimension ascending thoracic aorta 4.5 cm Pulmonary artery segments are not enlarged. Positive for small filling defects in right lower lobe pulmonary artery branches, for instance axial image 73 No lobar pneumonia or pulmonary infarction Fatty infiltration throughout the liver Contracted gallbladder IMPRESSION: Positive for small pulmonary artery emboli in right lower lobe pulmonary artery branches
--- NOTE | 2025-01-27 12:53 | XR_ITS ---
Examination: CT abdomen with intravenous contrast CT pelvis with intravenous contrast 2-D coronal reconstructions 2-D sagittal reconstructions Date and time of exam:January 27, 2025 1509 hours INDICATIONS: Abdominal distention beginning 3 days ago. CTDI: vol (mGy) 13.7 DLP: (mGycm) 432 Technique: Multiple axial sections of the abdomen and pelvis have been obtained. 64 slice high-resolution scanner used. 3 mm axial sections have been obtained, post intravenous injection 100 cc Isovue-370 2-D sagittal, coronal reconstructions obtained. Low dose protocols were performed. One or more of the following dose reduction techniques were used; automated exposure control, adjustment of the mA and/or KV according to patient size, use of iterative reconstruction technique. Findings: No focal liver or splenic lesions Contracted gallbladder No pancreatic mass Normal adrenal glands No renal or ureteral calculi, no hydronephrosis IVC filter, thrombus in the inferior vena cava, for instance axial image 136 Normal appendix No bowel obstruction No diverticulitis No prostatomegaly Contracted urinary bladder Mild osteopenia IMPRESSION: Thrombus in the inferior vena cava No renal or ureteral calculi, no hydronephrosis Normal appendix No bowel obstruction No diverticulitis
--- NOTE | 2025-01-27 17:41 | ESHP_ITS ---
<Statement entered by Mj Cameron MD - 01/27/25 21:00> This patient is a 49-year-old male with past medical history of hypertension, T2DM, HFpEF, CAD, history of DVT and PE on Xarelto, factor V Leyden mutation, AYLEEN and BPH presented with shortness of breath, generalized weakness and chest pain. He presented to the ED due to severe chest pain. Patient had scheduled an appointment with Dr. John, vascular surgeon however he missed his appointment as he came to the ED. Vitals showed mildly elevated blood pressure. Patient was saturating 97% on 1 L oxygen. Labs were significant for hemoglobin 17.5. Troponin I was mildly elevated. Chest CT was positive for small pulmonary artery emboli in the right lower lobe. CT abdomen showed thrombus in the IVC. He received Ativan 2 mg x 1. Patient is admitted for management of chronic pulmonary emboli. Heparin drip has been started. Consulted coconut cooker for further recommendations. Will follow-up with echocardiogram. Trending troponin I. Home medications were reconciled. All labs and orders were reviewed. I saw and examined the patient, and I agree with current management stated by Dr Baljeet MD,PGY1. Plan of care was discussed with the attending physician and resident physician. Disclaimer: Despite multiple revisions, due to the dictation software being used, the document bellow may not be free of grammatical errors including phonetic/typographic errors. However, this does not deter from our commitment to providing health care in the patient's best interest in mind. Dr. Nisha MD, PGY 2 Documentation for date of: 01/27/25 HPI History of Present Illness History of present illness: Mr. Mcnulty is a 49-year-old male with past medical history significant for hypertension, type 2 diabetes, HFpEF (EF of 60-65%), CAD history of DVT and PE on Xarelto, factor V Leiden mutation, AYLEEN and BPH presented to the ED complaining of shortness of breath, generalized weakness and chest pain for the last several days. Patient states that he has had this chest pain for many years however today patient is experiencing 9 out of 10 severe substernal chest pain right after he was done eating. Patient states that he took ibuprofen but did not rate relief the pain. Patient also states that he was supposed to see Dr. John the vascular surgeon today which he missed the appointment and he is aware of the DVT in his right leg. Patient states that he has undergone an IVC filter placed in the left leg but is unsure of the details around that. Patient denies any palpitations, dizziness or syncopal episodes. ED course: Vitals are stable with blood pressure 145/95, heart rate of 82, respirations 16, patient saturating 97% on 1 L oxygen via nasal cannula. Labs are significant for hemoglobin 17.5, troponin 0.619 -> 0.588 and the remaining of labs are within normal range. Chest CTA: Positive for small pulmonary artery emboli in the right lower lobe pulmonary artery branches CT of abdomen/pelvis shows thrombus in the inferior vena cava In the ED patient received Ativan 2 mg x 1 PMH: HTN, T2DM, CAD, HFpEF, CAD, DVT, PE, AYLEEN, BPH, Factor V leiden mutation PSH: Mesh placed in the left leg in 2023 SH: Currently unemployed. Lives with a roommate who was present during history taking. Denies any smoking, drinking, drug use. HomeMeds: Amiodarone 200 mg daily, atorvastatin 40 mg daily, clopidogrel 75 mg daily, duloxetine 30 mg daily, finasteride 5 mg daily, furosemide 20 mg daily, gabapentin 300 mg 3 times daily, lisinopril 30 mg daily, metformin 500 mg daily, Ozempic, tamsulosin 0.4 mg. FamHx: Mother , no known history. Father alive, history of multiple clots. Allergies: NKDA Review of Systems Review of Systems Systems Reviewed: All systems reviewed, normal except as documented Exam Vital Signs Temp Pulse Resp BP Pulse Ox O2 Del Method 97.8 F 82 16 145/95 H 98 Room Air 01/27/25 16:35 01/27/25 16:35 01/27/25 16:35 01/27/25 16:35 01/27/25 16:35 01/27/25 16:35 Narrative Exam GENERAL: A&Ox3 . Awake middle aged obese male, not in distress, cooperative and smiley NEURO: no focal neurological deficits HEENT: Atraumatic, Normocephalic. mucous membranes moist. Eyes open, symmetrical, & clear HEART: Normal Heart Sounds LUNGS: Clear to auscultation with no wheezing or crackles. ABDOMEN: soft, non-distended, non-tender, bowel sounds heard, no guarding or rebound tenderness SKIN: No Rash or ecchymoses EXTREMITIES: 1+ non pitting edema bilaterally in LE, no tenderness, able to move all 4 extremities, pedal pulses palpated Results: Labs 01/28/25 06:58 01/28/25 06:58 Labs: Short CBC 01/26/25 Range/Units 22:44 WBC 7.7 (3.8-10.6) Thou/mm3 Hgb 17.5 H (13.5-16.0) g/dL Hct 52.2 (41.0-53.0) % Plt Count 183 D (140-440) Thou/mm3 BMP 01/26/25 22:44 Sodium 144 Potassium 4.1 Chloride 108 H Carbon Dioxide 24.8 BUN 11 Creatinine 1.1 Glucose 99 Calcium 10.0 Cardiac Enzymes 01/26/25 Range/Units 22:44 Troponin I 0.588 H* (0.0-0.045) ng/mL Liver Function 01/26/25 Range/Units 22:44 Total Bilirubin 0.5 (0.3-1.2) mg/dL AST 31 (0-34) U/L ALT 40 (10-49) U/L Alkaline Phosphatase 201 H (46-116) U/L Albumin 4.3 (3.5-5.0) gm/dL Quality Measures Quality Measures VTE therapy Medications Home Medications and Allergies Home Medications ?Medication ?Instructions ?Recorded ?Confirmed ?Type lisinopril 20 mg tablet 20 mg PO BID #0 tabs 7 01/28/25 History metoprolol tartrate 100 mg tablet 100 mg PO BID 01/28/25 History metformin 500 mg tablet 500 mg PO HS 06/28/21 History ropinirole 0.25 mg tablet 0.25 mg PO HS 10/03/2101/28 History amiodarone 200 mg tablet 200 mg PO QDAY 04/05/2201/10 History atorvastatin 40 mg tablet 40 mg PO HS 09/04/22 5 History meclizine 25 mg tablet 25 mg PO BID PRN Dizziness 1 01/28/25 History duloxetine 30 mg capsule,delayed 30 mg PO QDAY 3 01/28/25 History release finasteride 5 mg tablet 5 mg PO QDAY 10/24/23 History furosemide 20 mg tablet 20 mg PO QDAY 10/24/2301/28 History semaglutide 1 mg/dose (4 mg/3 mL) 1 mg subcut QWEEK 01/28/25 History subcutaneous pen injector (Ozempic) gabapentin 300 mg capsule 300 mg PO TID 08/07/2401/28 History albuterol sulfate 90 mcg/actuation 2 puff inhalation Q 4H PRN 01/07/25 01/28/25 History aerosol inhaler shortness of breath or wheez ing allopurinol 100 mg tablet 100 mg PO DAILY 01/07/25 History aspirin 81 mg tablet,delayed 81 mg PO DAILY 01/07/25 0 01/28/25 History release benzonatate 100 mg capsule 200 mg PO TID PRN cough 01/28/25 History ibuprofen 600 mg tablet 600 mg PO [id number] PRN pain 0 01/07/25 01/28/25 History loratadine 10 mg tablet (Claritin) 10 mg PO QDAY PRN a llergic symptoms 01/07/25 01/28/25 History methimazole 10 mg tablet 20 mg PO DAILY 01/07/2501/10 History multivitamin (Daily Multi-Vitamin 1 tab PO QAM 5 01/28/25 History tablet) ondansetron HCl 4 mg tablet 4 mg PO TID PRN nausea and vomiting 01/07/25 01/28/25 History pantoprazole 40 mg tablet,delayed 40 mg PO QAM 5 01/28/25 History release (Protonix) rivaroxaban 20 mg tablet (Xarelto) 20 mg PO QPM 01/28/25 History Allergies Allergy/AdvReac Type Severity Reaction Status Date / Time No Known Allergies Allergy Verified 01/22/25 16:29 Visit Medications Acetaminophen (Acetaminophen 325 Mg Tablet) 650 mg PO Q6H PRN PRN Reason: Fever >101.5 Stop: 02/26/25 17:28 Heparin Sodium (Porcine) (Heparin Sod Inj 5000 Unit/Ml Vial) 8,700 unit 80 unit/kg (8700 unit) IV X1 ONE; Protocol Stop: 01/27/25 17:30 Heparin Sodium/Dextrose (Heparin In D5w Ivpb) 25,000 unit in 250 mls @ 19.595 mls/hr IV .[id number] [facility]; Protocol Stop: 02/10/25 17:44 Discontinued Medications Lorazepam (Lorazepam 2 Mg/Ml Vial) 2 mg IVP X1 ONE Stop: 01/27/25 13:02 Last Admin: 01/27/25 13:30 Dose: Not Given Assessment & Plan Plan Mr. Mcnulty is a 49-year-old male with past medical history significant for hypertension, type 2 diabetes, with EF, CAD history of DVT and PE on Xarelto, factor V Leiden mutation, AYLEEN and BPH presented to the ED complaining of shortness of breath, generalized weakness and chest pain for the last several days. #Chest pain, unspecified #Pulmonary emboli, chronic #Hx of DVT s/p IVC filter in left #Factor V leiden mutation -Pt complaining of substernal chest pain 07/22 after he was done eating, ibprophen did not relieve the pain. Pt denies the pain radiating anywhere, denied diaphoresis -Chest CTA: Positive for small pulmonary artery emboli in the right lower lobe pulmonary artery branches -CT of abdomen/pelvis shows thrombus in the inferior vena cava -PESI score 59 -Pt has a history of IVC filter place for DVT in left leg in 2022 -Pt has history of DVTs and PE and is compliant with xarelto at home -Upon review previous admission, chest CTA form 10/2023 is evident of small PE in the right lower lobe of the pulmonary artery branch. Plan: -Heparin drip started -Consult cardiology for recommendations and evaluation of thrombo embolectomy #Elevated troponin -Pt has chronically elevated troponins from previous admissions -currently troponin 0.619 -> 0.588 -likely demand ischemia, will continue to monitor downtrend #History of type 2 diabetes -A1c 5.5 on 01/08, on admission blood glucose 99 -insulin sliding scale ordered -hypoglycemic protocol in place #Hx hypertension #Hx hyperlipidemia #Hx BPH (?) #Hx AYLEEN -Resumed amiodarone 200 mg daily -IV Lasix 20 mg daily -Gabapentin 300 mg 3 times daily -Lisinopril 20 mg BID -Use CPAP nightly -remainder of med recs pending Health Maintenance Disposition:telemetry for observation DVT Prophylaxis: Heparin drip for DVT and PE GI Prophylaxis: Pantoprozol-40 IV Qday Diet: Cardiac Diet Lines: Peripheral lines Code status: Full Assessment and plan discussed with my senior resident Dr. Cameron & attending physician Dr. Dorothy Delong (PGY-1)- Internal medicine resident Attending Provider Attestation/Addendum I have discussed and was present for the essential components of the history, physical examination, diagnosis, and treatment plan with the resident. I agree with the patient's care as documented by the resident and amended herein by me. Mitul De La Cruz DO. Although this document has been carefully reviewed, there may still be some phonetic and other typographical errors. These errors are purely grammatical due to imperfections in the software program and should not be construed in any way to compromise the substance of the patient's medical care during this visit.
--- NOTE | 2025-01-27 18:48 | PD.RESCONSUL ---
HPI Data of Consult Requesting Physician: Josué De La Cruz DO Admitting Provider: Josué De La Cruz DO Attending Provider: Josué De La Cruz DO Primary Care Provider: Physician No Primary/Family Consult Narrative Reason for consult: Pulmonary embolism History of present illness: Mr. 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 Patient complains of retrosternal chest pain, reports that the pain radiates to his left arm left leg and right shoulder, reported that he has had this pain for about 2 years, was diagnosed with coronary artery disease by Dr. Mendoza, was referred to Dr. Ortega for cardiac cath but had a negative stress test and is on medical management currently. Patient does report that he has had multiple DVTs and PEs in the past, was diagnosed with positive for 1 copy of factor V Leiden on 07/31/2017, heterozygous for factor V Leiden mutation, has 3-8 fold increased risk for venous thrombus. Patient reports that he was scheduled for procedure with Dr. Montemayor today, was unable to go to the appointment because of his chest pain and decided to come to emergency department for chest pain. Patient denies stopping Xarelto prior to procedure, reports good medicine compliance denies recent immobility or air travel. Patient also complains of shortness of breath, reports that he feels short of breath currently, endorses orthopnea, has 2+ lower extremity edema on right leg and 1+ lower extremity edema on left leg. Patient reports that he has a thrombus in right leg as well. Patient otherwise denies any dizziness palpitations headache falls or syncope. ED Course: ED Vitals: On presentation in the emergency department blood pressure 162/91, heart rate 100, respiratory rate 18, temp 98.4, O2 sat 95 on room air ED Labs:ED labs significant for WBC 7.7, RBC 6.02, hemoglobin 17.5, hematocrit 52.2, platelet 183, sodium 144 potassium 4.1 chloride 108, venous CO2 24.8 BUN 11 creatinine 1.1 GFR more than 60 glucose 99 osmolality 286 calcium 10 alk phos 201 troponin 0.588 albumin 4.3 ED Imaging:CTA chest in ED shows small pulmonary artery emboli in right lower lobe pulmonary artery branches CT abdomen pelvis shows thrombus in inferior vena cava, IVC filter noted EKG in the emergency department shows sinus rhythm, incomplete right bundle branch block compared to EKG from 01/23/2025 incomplete right bundle branch block is new Patient does have a venous Doppler from right lower extremity, 01/23/2025 shows partially occlusive thrombus in distal right femoral and one paired tibial vein ED Treatment: Hospitalist team consulted in emergency department and patient was admitted to floor for further management of pulmonary embolism. Cardiology consulted. cc:: cc: Josué De La Cruz, Review of Systems Review of Systems Narrative Review of Systems: ROS: -CONSTITUTIONAL: Denies weight loss, fever and chills. -HEENT: Denies changes in vision and hearing. -RESPIRATORY: Positive for SOB and cough. -CV: Denies palpitations and positive for Chest Pain. -GI: Denies abdominal pain, nausea, vomiting,constipation and diarrhea. -: Denies dysuria and urinary frequency. -MSK: Denies myalgia and joint pain. -SKIN: Denies rash and pruritus. -NEUROLOGICAL: Denies headache and syncope. -PSYCHIATRIC: Denies recent changes in mood. Denies anxiety and depression. 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 -Smoking: Denies -Alcohol Use: Denies -Illicit Drug Use: Denies -Occupation: Currently unemployed, used to work at [employer] previously. -Education Level: High school graduate -Martial Status: Unmarried Family History: Denies any family history of heart disease, history of thrombus in father as well Exam Vital Signs Temp Pulse Resp BP Pulse Ox O2 Del Method 98.0 F 99 14 171/99 H 97 Room Air 01/27/25 18:28 01/27/25 18:28 01/27/25 18:28 01/27/25 18:28 01/27/25 18:28 01/27/25 18:28 Narrative Exam Physical Exam General: Awake and in no acute distress. Conversational and non-toxic appearing. HEENT: Normocephalic, atraumatic, mucous membranes moist. Heart: Regular rate and rhythm, no murmurs. Lungs: Mild bibasilar crackles, patient unable to lie flat, SpO2 decreases while moving. Abdomen: Soft, nondistended, nontender, positive bowel sounds. ?No guarding or rebound tenderness. Neurologic: Alert and oriented x3, no gross neurological deficit, and patient able to move all 4 extremities. Extremities: 2+ lower extremity edema right leg, 1+ lower extremity edema left leg Skin: No rash or ecchymoses. Results Labs 01/28/25 06:58 01/28/25 06:58 Labs: Short CBC 01/26/25 Range/Units 22:44 WBC 7.7 (3.8-10.6) Thou/mm3 Hgb 17.5 H (13.5-16.0) g/dL Hct 52.2 (41.0-53.0) % Plt Count 183 D (140-440) Thou/mm3 BMP 01/26/25 22:44 Sodium 144 Potassium 4.1 Chloride 108 H Carbon Dioxide 24.8 BUN 11 Creatinine 1.1 Glucose 99 Calcium 10.0 Cardiac Enzymes 01/26/25 Range/Units 22:44 Troponin I 0.588 H* (0.0-0.045) ng/mL Liver Function 01/26/25 Range/Units 22:44 Total Bilirubin 0.5 (0.3-1.2) mg/dL AST 31 (0-34) U/L ALT 40 (10-49) U/L Alkaline Phosphatase 201 H (46-116) U/L Albumin 4.3 (3.5-5.0) gm/dL Quality Measures Quality Measures VTE therapy Medications Home Medications and Allergies Home Medications ?Medication ?Instructions ?Recorded ?Confirmed ?Type lisinopril 20 mg tablet 20 mg PO BID #0 tabs 08/22/17 01/28/25 History metoprolol tartrate 100 mg tablet 100 mg PO BID 03/14/21 01/28/25 History metformin 500 mg tablet 500 mg PO HS 06/28/21 01/28/25 History ropinirole 0.25 mg tablet 0.25 mg PO HS 10/03/21 01/28/25 History amiodarone 200 mg tablet 200 mg PO QDAY 04/05/22 01/28/25 History atorvastatin 40 mg tablet 40 mg PO HS 09/04/22 01/28/25 History meclizine 25 mg tablet 25 mg PO BID PRN Dizziness 09/04/22 01/28/25 History duloxetine 30 mg capsule,delayed 30 mg PO QDAY 10/24/23 01/28/25 History release finasteride 5 mg tablet 5 mg PO QDAY 10/24/23 01/28/25 History furosemide 20 mg tablet 20 mg PO QDAY 10/24/23 01/28/25 History semaglutide 1 mg/dose (4 mg/3 mL) 1 mg subcut QWEEK 10/24/23 01/28/25 History subcutaneous pen injector (Ozempic) gabapentin 300 mg capsule 300 mg PO TID 08/07/24 01/28/25 History albuterol sulfate 90 mcg/actuation 2 puff inhalation Q4H PRN 01/07/25 01/28/25 History aerosol inhaler shortness of breath or wheezing allopurinol 100 mg tablet 100 mg PO DAILY 01/07/25 01/28/25 History aspirin 81 mg tablet,delayed 81 mg PO DAILY 01/07/25 01/28/25 History release benzonatate 100 mg capsule 200 mg PO TID PRN cough 01/07/25 01/28/25 History loratadine 10 mg tablet (Claritin) 10 mg PO QDAY PRN allergic symptoms 01/07/25 01/28/25 History methimazole 10 mg tablet 20 mg PO DAILY 01/07/25 01/28/25 History multivitamin (Daily Multi-Vitamin 1 tab PO QAM 01/07/25 01/28/25 History tablet) ondansetron HCl 4 mg tablet 4 mg PO TID PRN nausea and vomiting 01/07/25 01/28/25 History pantoprazole 40 mg tablet,delayed 40 mg PO QAM 01/07/25 01/28/25 History release (Protonix) Allergies Allergy/AdvReac Type Severity Reaction Status Date / Time No Known Allergies Allergy Verified 01/22/25 16:29 Visit Medications Acetaminophen (Acetaminophen 325 Mg Tablet) 650 mg PO Q6H PRN PRN Reason: Fever >100.3 Stop: 02/26/25 17:28 Albuterol/Ipratropium (Albuterol/Ipratropium (Duoneb) Rt Tiana 3 Ml Nebu) 3 ml INH Q6HRRT PRN PRN Reason: WHEEZING Stop: 02/26/25 18:59 Dextrose (Dextrose 50%-Water Inj 50 Ml Syringe) 25 ml IV Q15MIN PRN PRN Reason: BG 50-70 responsive npo pt Stop: 02/26/25 18:43 Dextrose (Dextrose 50%-Water Inj 50 Ml Syringe) 50 ml IV Q15MIN PRN PRN Reason: BG <50 OR BG <70 & pt unresponsive Stop: 02/26/25 18:43 Glucagon (Glucagon Inj 1 Mg Vial) 1 mg IM Q15MIN PRN PRN Reason: BG <70, and no IV access Heparin Sodium (Porcine) (Heparin Sod Inj 5000 Unit/Ml Vial) 8,700 unit 80 unit/kg (8700 unit) IV X1 ONE; Protocol Stop: 01/27/25 17:30 Heparin Sodium/Dextrose (Heparin In D5w Ivpb) 25,000 unit in 250 mls @ 18.071 mls/hr IV .[id number] [facility]; Protocol Stop: 02/10/25 17:44 Insulin Human Lispro (Insulin Lispro (Admelog) 1 Unit/0.01 Ml Unit) 0 unit [facility]; Protocol Stop: 02/27/25 07:29 Discontinued Medications Lorazepam (Lorazepam 2 Mg/Ml Vial) 2 mg IVP X1 ONE Stop: 01/27/25 13:02 Last Admin: 01/27/25 13:30 Dose: Not Given Assessment & Plan Plan Assessment and Plan: Summary: Mr. 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 CTA chest in ED shows small pulmonary artery emboli in right lower lobe pulmonary artery branches, CT abdomen pelvis shows thrombus in inferior vena cava, IVC filter noted. Cardiology consulted for pulmonary embolism, failed outpatient therapy on Xarelto. #Acute respiratory distress secondary to #Small pulmonary artery emboli, right lower lobe #Low-risk pulmonary embolism #IVC thrombus #IVC filter by history #Right lower extremity deep vein thrombus #Failed therapy rivoroxaban and Eliquis #NSTEMI Type II demand ischemia in setting of PE Complains of retrosternal chest pain, reports that the pain radiates to his left arm left leg and right shoulder, shortness of breath and generalized weakness. Was scheduled for procedure with Dr. John vascular surgeon today, reports continuing Xarelto prior to procedure, reports good compliance denies recent immobility or air travel Reports that he has had multiple DVTs and PEs in the past, was diagnosed with positive for 1 copy of factor V Leiden on 07/31/2017, Heterozygous for factor V Leiden mutation, has 3-8 fold increased risk for venous thrombus. Troponin I 0.588 -> 0.584 CTA chest in ED shows small pulmonary artery emboli in right lower lobe pulmonary artery branches CT abdomen pelvis shows thrombus in inferior vena cava, IVC filter noted Patient does have a venous Doppler from right lower extremity, 01/23/2025 shows partially occlusive thrombus in distal right femoral and one paired tibial vein PESI score: 69 points, class II low risk: 1.7-3.5% 30-day mortality in this group Recommendations: -Started on heparin drip, continue -Ordered echocardiogram to assess for right heart strain -If echocardiogram is negative for RHS, will start patient on Eliquis as patient has failed treatment on Xarelto -Continue outpatient follow-up with vascular surgery # Diastolic heart failure with preserved ejection fraction, EF 55 to 60% # Coronary artery disease, by history Patient complains of shortness of breath on exertion, complains of orthopnea currently, does have bilateral lower extremity edema, edema can be attributed to DVT as well. Patient follows Dr. Ortega outpatient, reports that he was diagnosed with coronary artery disease by Dr. Mendoza, was referred to Dr. Ortega, had stress test done outpatient that was negative. Denies any history of stent placement or angiogram. Patient is on Lasix 20 mg daily at home, was recently prescribed Bumex 0.5 mg daily by PCP for 7 days. -Resumed home dose Lasix -Follow outpatient with cardiology Dr. Ortega -Follow TSH, A1c and lipid panel for risk stratification #Hypertension #Hyperlipidemia Patient is on atorvastatin 40 mg at bedtime, aspirin 81 mg, lisinopril 20 mg twice daily, metoprolol tartrate 100 mg p.o. twice daily per medication review, patient is pending med reconciliation Monitor blood pressure, resume home dose atorvastatin #Diabetes mellitus Patient is on metformin and semaglutide for diabetes management Follow hemoglobin A1c in a.m. Blood glucose 99 in [facility], monitor daily blood glucose. Blood glucose goal 140?180 #Benign prostate hypertrophy #Gout #GERD #Restless leg syndrome #Chronic pain #Depression Patient on gabapentin 300 3 times daily, finasteride 5 mg, duloxetine 30 mg daily, Protonix 40 mg daily, ropinirole 0.25 mg at bedtime per medication review Resume home meds once med reconciled, management per primary team #Hyperthyroidism Patient on methimazole 20 mg twice daily, metoprolol tartrate 100 mg twice daily Follow TSH level in a.m., resume meds once medication reconciled Thank you for the consult and allowing to participate in the care of the patient. Cardiology will continue to follow. Case discussed with Attending Dr. Ruiz. Balbina Chase PGY1 Disclaimer: This note was dictated by speech recognition. Minor errors in survey instrument operator may be present due to voice recognition software. Attending Provider Attestation/Addendum I have personally seen and examined the patient separately on the above date of service and discussed the plan of care with the resident. I reviewed the resident Dr. Balbina Chase consultation progress note and agree with the resident findings and plan in the note above and have also edited the documentation to reflect my findings and plan. A 49-year-old male with a past medical history of bilateral recurrent DVT, at least 5 episodes for the past 3 to 4 years, history of PE status post IVC filter and on anticoagulation with Xarelto, receive this factor V Leiden mutation, HFpEF, essential hypertension, hyperlipidemia, obesity, diabetes mellitus, essential hypertension, hypothyroidism, gout, nephrolithiasis, chronic pain, restless leg syndrome presented to the emergency department for further evaluation of some shortness of breath, generalized weakness symptom chest pain. Patient presented to the emergency department with the above complaints and was found to have small PE in the involving the right lower lobe pulmonary artery tree branches. Also patient had venous duplex positive for DVT with partial occlusive thrombus of the distal right SFA as well as acute tibial vein. Patient also complains of some chest pain and on and off with she has been going on for last 2 years and did see a couple of horse shoer here in [place] in [place] and apparently had a stress test with was negative. He has chronic elevation of troponin previously also but was noted in the EMR. Cardiology was consulted for further evaluation of pulmonary embolism. Assessment and plan: 1. Pulmonary embolism-small only involving the right lower lobe branches 2. Right leg DVT 3. IVC thrombus 4. Elevated troponins-NSTEMI type II in the setting of supply/demand mismatch and PE. 5. HFpEF 6. Heterozygous factor V Leiden mutation 7. Essential hypertension 8. Diabetes mellitus 9. Hyperlipidemia 10. Hyperthyroidism Presented with shortness of breath was found to have PE involving the right lower lobe branches. Patient is hemodynamically stable and is on room air without any respiratory distress. Patient is a mildly elevated troponin and no BNP was done. Echocardiogram done showed no evidence of any significant right heart strain. Reviewed the CT images and given the clot burden is low and only present in the left lower pulmonary artery branches patient is not a candidate for any thrombectomy or thrombolysis at the present point of time. Recommend to continue anticoagulation with Xarelto as per the DVT/PE protocol as he was also diagnosed with right leg DVT. Also noted to have an IVC filter with the thrombus attached to it Patient was diagnosed with initial DVT around 3 to 4 years ago and since then apparently had 5 episodes since then with an episode of PE which prompted IVC filter placement at a different hospital. Unclear etiology of his recurrent DVT as well as PE Factor V Leiden mutation will not along cause this amount of recurrent thromboembolism. Also noted that IVC filter is thrombogenic and it can itself cause IVC thrombosis. Patient apparently had been on Eliquis previously and was stopped because the 30 failed Eliquis and was started on Xarelto. Will follow patient recommended to start on Xarelto versus warfarin which patient is not interested in much. Recommended to follow-up with a tertiary care center vascular medicine clinic for further evaluation of his recurrent DVT and PE is a very easily at [facility] or [place] as outpatient. Regarding his mildly elevated troponins patient does have history of elevated troponin during every admission and was referred to horse shoer outpatient and apparently had a stress test which negative and recommended to follow-up with his horse shoer Dr. Ortega in [place] as outpatient. Echocardiogram showed preserved ejection fraction without any regional wall motion abnormalities. Any shortness of breath is also secondary to possible underlying HFpEF and recommend to give IV Lasix 20 mg x 1 for now and is Lasix 20 mg once daily at home and can be increased to Lasix 40 mg once daily at the time of discharge and follow-up with cardiology. Management of rest of the medical conditions as per primary team and other consultants. Thank you for the consult and allowing me to participate in the care of the patient. Cardiology will continue to follow. Christian Ruiz M.D. Interventional Cardiology
[2025-01-27] MEDS: HEPARIN SOD INJ 5000 UNIT/ML VIAL 8000 UNIT IV (19:24)
[2025-01-27] MEDS: Heparin/D5w 25K 250 ML Ivpb 25,000 UNIT/250 ML BAG 18.071 UNIT IV (19:27)
[2025-01-27 19:32] LABS: Partial Thromboplastin Time 27.9 Seconds (22.0-36.0)
[2025-01-27 19:43] LABS: Troponin I 0.584 ng/mL (0.0-0.045)
[2025-01-27] MEDS: Furosemide 20 MG TABLET PO (19:44)
[2025-01-27] MEDS: GABAPENTIN 100 MG CAPSULE 300 MG PO (21:30)
[2025-01-27] MEDS: Lisinopril 20 MG TABLET PO (21:30)
[2025-01-27 22:09] LABS: B-Type Natriuretic Peptide 46 pg/mL (0-100)
[2025-01-27] MEDS: LIDOCAINE 5% 1 PATCH TOP (23:18)
[2025-01-27] MEDS: HYDROcodone/APAP 5/325 TABLET 1 TAB PO (23:32)
[2025-01-28] VITALS (10 sets, daily range): BP systolic 127–160; BP diastolic 82–98; PULSE 68–92; RESP 12–97; TEMP 36.1–36.4; O2SAT 95–97
[2025-01-28 01:39] LABS: Troponin I 0.554 ng/mL (0.0-0.045)
[2025-01-28 01:49] LABS: Partial Thromboplastin Time 64.6 Seconds (22.0-36.0)
[2025-01-28] MEDS: GABAPENTIN 100 MG CAPSULE 300 MG PO ×2 (05:32→13:54)
[2025-01-28 07:37] LABS: Basophils % (Auto) 0 % (0-2.5); Eosinophils # (Auto) 0.1 Thou/mm3 (0.0-0.5); Eosinophils % (Auto) 3 % (0-10); Hematocrit 48.1 % (41.0-53.0); Hemoglobin 15.9 g/dL (13.5-16.0); Immature Granulocytes % (Auto) 0 % (0-0); Immature Granulocytes Auto 0.01 Thou/mm3 (0.00-0.00); Lymphocytes # (Auto) 1.4 Thou/mm3 (1.0-4.8); Lymphocytes % (Auto) 32 % (10-50); Mean Corpuscular HGB Conc 33.1 g/dl (31.0-37.0); Mean Corpuscular Hemoglobin 29.2 pg (25.0-35.0); Mean Corpuscular Volume 88 fL (80-100); Monocytes # (Auto) 0.7 Thou/mm3 (0.0-0.8); Monocytes % (Auto) 17 % (0-12); Neutrophils # (Auto) 2.1 Thou/mm3 (1.8-7.7); Neutrophils % (Auto) 48 % (37-80); Nucleated Red Blood Cell % 0 /100 WBC (0); Platelet Count 263 Thou/mm3 (140-440); RDW Standard Deviation 40.7 fL (35.1-43.9); Red Blood Count 5.44 Miln/mm3 (4.50-5.90); White Blood Count 4.5 Thou/mm3 (3.8-10.6)
[2025-01-28 08:03] LABS: Alanine Aminotransferase 32 U/L (10-49); Albumin, Serum 3.7 gm/dL (3.5-5.0); Albumin/Globulin Ratio 1.5 (1.2-2.2); Alkaline Phosphatase 170 U/L (46-116); Anion Gap 8 (7-16); Aspartate Amino Transferase 26 U/L (0-34); BUN/Creatinine Ratio 14 Ratio (12-20); Bilirubin,Total 0.6 mg/dL (0.3-1.2); Blood Urea Nitrogen 14 mg/dL (9-23); Calcium 8.9 mg/dL (8.3-10.6); Calcium (Corrected) 9.1 mg/dL (8.5-10.1); Carbon Dioxide 26.1 mMol/L (20.0-31.0); Chloride 104 mMol/L (98-107); Estimated Creatinine Clearance 103.1 mL/min (>60); Free T4 (Free Thyroxine) 2.92 ng/dL (0.89-1.76); Globulin 2.5 gm/dL (2.3-3.5); Glucose 108 mg/dL (74-106); Magnesium 1.9 mg/dL (1.6-2.6); Osmolality,Calculated 277 (275-295); Phosphorous 3.8 mg/dL (2.4-5.1); Potassium 3.7 mMol/L (3.4-5.1); Sodium 138 mMol/L (136-145); Total Protein 6.2 gm/dL (5.7-8.2); eGFR > 60 See Note
[2025-01-28 08:05] LABS: Troponin I 0.502 ng/mL (0.0-0.045)
[2025-01-28] MEDS: AMIODARONE HCL 200 MG TABLET PO (08:14)
[2025-01-28] MEDS: Furosemide 20 MG TABLET PO (08:14)
[2025-01-28] MEDS: Lisinopril 20 MG TABLET PO (08:15)
[2025-01-28] MEDS: PANTOPRAZOLE INJ 40 MG VIAL IV (08:15)
[2025-01-28] MEDS: CLOPIDOGREL BISULFATE 75 MG TABLET PO (08:15)
[2025-01-28] MEDS: Heparin/D5w 25K 250 ML Ivpb 25,000 UNIT/250 ML BAG 18.071 UNIT IV (08:16)
[2025-01-28 08:33] LABS: Partial Thromboplastin Time 87.5 Seconds (22.0-36.0)
[2025-01-28 08:56] LABS: Thyroid Stimulating Hormone < 0.01 uIU/mL (0.55-4.78)
--- NOTE | 2025-01-28 10:13 | PD.RESPRO ---
Documentation for date of: 01/28/25 Subjective Subjective Interval history: Patient seen and examined at bedside. Patient is asymptomatic, stable on room air. Echocardiogram shows LV size and function with EF 55-60%. Diastolic Dysfunction stage I RV size and function. Normal RVSP 25 mmhg. No RV strain Trace-Mild MR & MAC. trace TR Patient has recurrent DVTs/PE despite continued therapy on Xarelto, does have heterozygous factor V Leiden mutation. High suspicion of other underlying mutations causing recurrent DVTs/PE. Patient will benefit from following up in tertiary care for further workup. Patient is stable to be discharged on Xarelto 15mg PO BID x 21 days, then 20mg qday dose. TSH less than 0.01, free T4 2.92, on management for hyperthyroidism, resume meds. Hyperthyroidism should be treated aggressively, hyperthyroidism does increase the risk of thrombosis, causes hypercoagulability. Patient needs close follow-up outpatient to maintain euthyroid state, consider endocrinology referral outpatient. Exam Vital Signs Temp Pulse Resp BP Pulse Ox O2 Del Method FiO2 97.3 F 68 16 141/85 H 95 BiPAP 25 01/28/25 08:00 01/28/25 08:15 01/28/25 08:00 01/28/25 08:15 01/28/25 08:00 01/28/25 08:00 01/28/25 02:39 Narrative Exam Physical Exam General: Awake and in no acute distress. Conversational and non-toxic appearing. HEENT: Normocephalic, atraumatic, mucous membranes moist. Heart: Regular rate and rhythm, no murmurs. Lungs: Mild bibasilar crackles, patient unable to lie flat, SpO2 decreases while moving. Abdomen: Soft, nondistended, nontender, positive bowel sounds. ?No guarding or rebound tenderness. Neurologic: Alert and oriented x3, no gross neurological deficit, and patient able to move all 4 extremities. Extremities: 2+ lower extremity edema right leg, 1+ lower extremity edema left leg Skin: No rash or ecchymoses. Objective Labs 01/28/25 06:58 01/28/25 06:58 Labs: Laboratory Results - last 24 hr 01/27/25 01/28/25 01/28/25 18:50 00:45 06:58 WBC 4.5 D RBC 5.44 Hgb 15.9 Hct 48.1 MCV 88 MCH 29.2 MCHC 33.1 RDW Std Deviation 40.7 Plt Count 263 D Neut % (Auto) 48 Lymph % (Auto) 32 Cross % (Auto) 17 H Eos % (Auto) 3 Baso % (Auto) 0 Neut # (Auto) 2.1 Lymph # (Auto) 1.4 Cross # (Auto) 0.7 Eos # (Auto) 0.1 Baso # (Auto) 0.0 Immature Gran # (Auto) 0.01 H Absolute Nucleated RBC 0.00 Immature Gran % 0 Nucleated RBC % 0 APTT 27.9 64.6 H D 87.5 H D Sodium 138 Potassium 3.7 Chloride 104 Carbon Dioxide 26.1 Anion Gap 8 BUN 14 Creatinine 1.0 Estim Creat Clear Calc 103.1 eGFR > 60 BUN/Creatinine Ratio 14 Glucose 108 H Calculated Osmolality 277 Calcium 8.9 Corrected Calcium 9.1 Phosphorus 3.8 Magnesium 1.9 Total Bilirubin 0.6 AST 26 ALT 32 Alkaline Phosphatase 170 H D Troponin I 0.584 H* 0.554 H* 0.502 H* B-Natriuretic Peptide 46 Total Protein 6.2 Albumin 3.7 D Globulin 2.5 Albumin/Globulin Ratio 1.5 TSH < 0.01 L* Free T4 2.92 H Quality Measures Quality Measures VTE therapy Assessment & Plan Assessment Current Active Medications: Generic Name Dose Route Start Last Admin Trade Name Freq PRN Reason Stop Dose Admin Acetaminophen 650 mg 01/27/25 17:29 Acetaminophen 325 Mg Tablet PO 02/26/25 17:28 Q6H PRN Fever >100.3 Albuterol/Ipratropium 3 ml 01/27/25 18:45 Albuterol/Ipratropium (Duoneb) Rt Tiana 3 Ml Nebu INH 02/26/25 18:59 Q6HRRT PRN WHEEZING Amiodarone HCl 200 mg 01/28/25 09:00 01/28/25 08:14 Amiodarone Hcl 200 Mg Tablet PO 02/27/25 08:59 200 mg QDAY TUAN Administration Clopidogrel Bisulfate 75 mg 01/28/25 09:00 01/28/25 08:15 Clopidogrel Bisulfate 75 Mg Tablet PO 02/27/25 08:59 75 mg DAILY TUAN Administration Dextrose 25 ml 01/27/25 18:44 Dextrose 50%-Water Inj 50 Ml Syringe IV 02/26/25 18:43 Q15MIN PRN BG 50-70 responsive npo pt Dextrose 50 ml 01/27/25 18:44 Dextrose 50%-Water Inj 50 Ml Syringe IV 02/26/25 18:43 Q15MIN PRN BG <50 OR BG <70 & pt unresponsive Furosemide 20 mg 01/27/25 19:15 01/28/25 08:14 Furosemide 20 Mg Tablet PO 02/26/25 18:59 20 mg QDAY TUAN Administration Gabapentin 300 mg 01/27/25 22:00 01/28/25 05:32 Gabapentin 100 Mg Capsule PO 02/26/25 21:59 300 mg TID TUAN Administration Glucagon 1 mg 01/27/25 18:44 Glucagon Inj 1 Mg Vial IM Q15MIN PRN BG <70, and no IV access Heparin Sodium/Dextrose 25,000 unit in 250 mls @ 18.071 mls/hr 01/27/25 17:45 01/28/25 10:12 Heparin In D5w Ivpb IV 02/10/25 17:44 14.6 units/kg/hr .[id number] TUAN 15.894 mls/hr Titration Protocol 16.6 UNITS/KG/HR Insulin Human Lispro 0 unit 01/28/25 07:30 01/28/25 08:06 Insulin Lispro (Admelog) 1 Unit/0.01 Ml Unit SC 02/27/25 07:29 Not Given AC TUAN Protocol Lisinopril 20 mg 01/27/25 21:00 01/28/25 08:15 Lisinopril 20 Mg Tablet PO 02/26/25 20:59 20 mg BID TUAN Administration Pantoprazole Sodium 40 mg 01/28/25 09:00 01/28/25 08:15 Pantoprazole Inj 40 Mg Vial IV 02/27/25 08:59 40 mg QDAY TUAN Administration Plan Assessment and Plan: Summary: Mr. 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 CTA chest in ED shows small pulmonary artery emboli in right lower lobe pulmonary artery branches, CT abdomen pelvis shows thrombus in inferior vena cava, IVC filter noted. Cardiology consulted for pulmonary embolism, failed outpatient therapy on Xarelto. #Acute respiratory distress secondary to #Small pulmonary artery emboli, right lower lobe #Low-risk pulmonary embolism #IVC thrombus #IVC filter by history #Right lower extremity deep vein thrombus #Failed therapy rivoroxaban and Eliquis #NSTEMI Type II demand ischemia in setting of PE Complains of retrosternal chest pain, reports that the pain radiates to his left arm left leg and right shoulder, shortness of breath and generalized weakness. Was scheduled for procedure with Dr. John vascular surgeon today, reports continuing Xarelto prior to procedure, reports good compliance denies recent immobility or air travel Reports that he has had multiple DVTs and PEs in the past, was diagnosed with positive for 1 copy of factor V Leiden on 07/31/2017, Heterozygous for factor V Leiden mutation, has 3-8 fold increased risk for venous thrombus. Troponin I 0.588 -> 0.584 CTA chest in ED shows small pulmonary artery emboli in right lower lobe pulmonary artery branches CT abdomen pelvis shows thrombus in inferior vena cava, IVC filter noted Patient does have a venous Doppler from right lower extremity, 01/23/2025 shows partially occlusive thrombus in distal right femoral and one paired tibial vein PESI score: 69 points, class II low risk: 1.7-3.5% 30-day mortality in this group Echocardiogram shows LV size and function with EF 55-60%. Diastolic Dysfunction stage I RV size and function. Normal RVSP 25 mmhg. No RV strain Trace-Mild MR & MAC. trace TR Recommendations: -Discharged on Xarelto 15mg PO BID x 21 days, then 20mg qday dose. -Continue outpatient follow-up with vascular surgery, endocrinology and tertiary care # Diastolic heart failure with preserved ejection fraction, EF 55 to 60% # Coronary artery disease, by history Patient complains of shortness of breath on exertion, complains of orthopnea currently, does have bilateral lower extremity edema, edema can be attributed to DVT as well. Patient follows Dr. Ortega outpatient, reports that he was diagnosed with coronary artery disease by Dr. Mendoza, was referred to Dr. Aziz, had stress test done outpatient that was negative. Denies any history of stent placement or angiogram. Patient is on Lasix 20 mg daily at home, was recently prescribed Bumex 0.5 mg daily by PCP for 7 days. TSH <0.01, free T4 2.92, A1c 5.5-01/08/25, Recommendations: -Resumed home dose Lasix -Follow outpatient with cardiology Dr. Ortega -Follow Lipid Panel outpatient #Hyperthyroidism Patient on methimazole 20 mg twice daily, metoprolol tartrate 100 mg twice daily Patient recently diagnosed with hyperthyroidism at [facility] delta was started on medications recently per patient's roommate. TSH less than 0.01, free T4 2.92 Recommendations: -Recommend to continue hyperthyroidism management -Hyperthyroidism should be treated aggressively, hyperthyroidism does increase the risk of thrombosis, causes hypercoagulability. -Patient needs close follow-up outpatient to maintain euthyroid state, consider endocrinology referral outpatient. #Hypertension #Hyperlipidemia Patient is on atorvastatin 40 mg at bedtime, aspirin 81 mg, lisinopril 20 mg twice daily, metoprolol tartrate 100 mg p.o. twice daily per medication review, patient is pending med reconciliation Monitor blood pressure, resume home dose atorvastatin #Diabetes mellitus Patient is on metformin and semaglutide for diabetes management Blood glucose 99 in cmp, monitor daily blood glucose. Blood glucose goal 140?180 #Benign prostate hypertrophy #Gout #GERD #Restless leg syndrome #Chronic pain #Depression Patient on gabapentin 300 3 times daily, finasteride 5 mg, duloxetine 30 mg daily, Protonix 40 mg daily, ropinirole 0.25 mg at bedtime per medication review Resume home meds once med reconciled, management per primary team Thank you for the consult and allowing to participate in the care of the patient. Cardiology will continue to follow. Case discussed with Attending Dr. Ruiz. Balbina Chase PGY1 Disclaimer: This note was dictated by speech recognition. Minor errors in licensed occupational therapist may be present due to voice recognition software. Attending Provider Attestation/Addendum I have personally seen and examined the patient separately on the above date of service and discussed the plan of care with the resident. I reviewed the resident Dr. Balbina Chase consultation progress note and agree with the resident findings and plan in the note above and have also edited the documentation to reflect my findings and plan. Christian Ruiz M.D. Interventional Cardiology
--- NOTE | 2025-01-28 14:27 | ESDS_ITS ---
<Statement entered by Mj Cameron MD - 01/28/25 14:27> I saw and examined the patient, and I agree with current management stated by Dr Baljeet MD,PGY1. Plan of care was discussed with the attending physician and resident physician. Disclaimer: Despite multiple revisions, due to the dictation software being used, the document bellow may not be free of grammatical errors including phonetic/typographic errors. However, this does not deter from our commitment to providing health care in the patient's best interest in mind. Dr. Ron MD, PGY 2 Planned Discharge Date 01/28/25 DS: Providers Provider Date of admission: 01/27/25 17:29 Primary care physician: Physician No Primary/Family Admitting Provider: Josué De La Cruz DO Attending Provider on Admission: Josué De La Cruz DO Consults: 01/27/25 17:37 Consult to Cardiology Routine Comment: Small PE and thrombus in IVC Consulting Provider: Christian Ruiz Attending Provider on DC: Mj Cameron MD Discharging Provider: Mj Cameron MD DS: Diagnosis Problem List Completed Was Problem List Reviewed/Reconciled?: Yes Hospital Course Hospital Course Hospital course: Mr. Mcnulty is a 49-year-old male with past medical history significant for hypertension, type 2 diabetes, HFpEF (EF of 60-65%), CAD history of DVT and PE on Xarelto, factor V Leiden mutation, AYLEEN and BPH presented to the ED complaining of shortness of breath, generalized weakness and chest pain for the last several days. Pt also missed his appointment with vascular surgeon Dr. Richards on the day of admission. Pt had mild elevation of troponins which peaked at 0.619 and downtrended, upon chart reviewing troponins appears to be chronically mildly elevated. Chest CTA is Positive for small pulmonary artery emboli in right lower lobe pulmonary artery branches and CT of abdomen/pelvis is positive for thrombus in the inferior vena cava. Pt is on xarelto and despite compliance on medications Pt continues to have DVTs and PEs liekly secondary to his factor V leiden mutations. In house firestopper technician Dr. Ruiz was consulted and repeat echo is not evident of right heart strain therefore will not need thromboembolectomy. Per cardiology recommendation, Pt will need referral to tertiary center for furth management of pt's chronic condition. Per firestopper technician recommendation Pt's dose for xarelto is changed to 15mg twice daily for 21 days and then resume to his regular dose of 20mg daily thereafter. During hospitalization, Pt was also found to have hyperthryroidism and pt is uncertain of his compliance with methamazole. Pt is recommended to see endocrinolgist for further management of hyperparathyroidism. Pt is hemodynamically stable, tolerating oral diet, and saturating on room adn ready to be discharged home to self care. Pt is advised his symptoms worsen or return to promptly return to the ED. Discharge Recommendations -Follow up with primary care within 2 weeks -Your xarelto dose have changed to 15mg twice daily for 21 days and then 20mg daily -Follow up with endocrinology to manage you hyperthyroidism -Follow up with Dr. John, vascular surgeon -Discuss with primary care regarding referral to tertiary center for follow up for recurrent DVT's and PE Hospitalization Diagnosis #Chest pain, unspecified #Pulmonary emboli, chronic #Hx of DVT s/p IVC filter in left #Factor V leiden mutation #Elevated troponin #History of type 2 diabetes #Hx hypertension #Hx hyperlipidemia #Hx BPH (?) #Hx AYLEEN Assessment and plan discussed with my attending physician Dr. Dorothy Delong (PGY-1)- Internal medicine resident Time Spent with Patient Time attestation: Total time spent providing and/or coordinating discharge services: Time spent: Greater than 30 minutes Exam Vital Signs Temp Pulse Resp BP Pulse Ox O2 Del Method O2 Flow Rate 97.0 F 90 20 135/97 H 96 Nasal Cannula 2 01/28/25 12:00 01/28/25 12:00 01/28/25 12:00 01/28/25 12:00 01/28/25 12:00 01/28/25 12:00 01/28/25 12:00 FiO2 25 01/28/25 02:39 Discharge Plan Plan Patient Disposition: HOME (Self Care) Patient condition on transfer: Stable Care Plan Goals: -Follow up with primary care within 2 weeks -Your xarelto dose have changed to 15mg twice daily for 21 days and then 20mg daily -Follow up with endocrinology to manage you hyperthyroidism -Follow up with Dr. John, vascular surgeon -Discuss with primary care regarding referral to tertiary center for follow up for recurrent DVT's and PE Prescriptions/Referrals Prescriptions/Med Rec: New Xarelto 15 mg tablet 15 mg PO BID 21 Days Qty: 42 0RF Rx Instructions: must administer with evening meal Xarelto 20 mg tablet 20 mg PO QDAY Qty: 30 3RF Rx Instructions: must administer with evening meal Continued gabapentin 300 mg capsule 300 mg PO TID lisinopril 20 MG tablet 20 mg PO BID Qty: 0 metformin 500 mg tablet 500 mg PO HS Patient Comments: TAKE 1 TABLET BY MOUTH EVERY DAY AT BEDTIME FOR DIABETES metoprolol tartrate 100 mg tablet 100 mg PO BID Patient Comments: TAKE 1 TABLET BY MOUTH TWICE A DAY FOR BLOOD PRESSURE ropinirole 0.25 mg Tablet 0.25 mg PO HS amiodarone 200 mg Tablet 200 mg PO QDAY atorvastatin 40 mg tablet 40 mg PO HS Patient Comments: TAKE 1 TABLET BY MOUTH AT BEDTIME FOR CHOLESTEROL meclizine 25 mg tablet 25 mg PO BID PRN (Reason: Dizziness) Patient Comments: TAKE 1-2 TABLETS BY MOUTH TWICE A DAY NEEDED FOR DIZZINESS tamsulosin [Flomax] 0.4 mg capsule 0.4 mg PO QDAY Qty: 7 0RF ondansetron HCl 4 mg tablet 4 mg PO Q8H PRN (Reason: nausea and vomiting) 5 Days Qty: 20 0RF furosemide 20 mg tablet 20 mg PO QDAY Ozempic 1 mg/dose (4 mg/3 mL) pen injector 1 mg SUBCUT QWEEK Patient Comments: Suner Rx Instructions: 1 time weekly duloxetine 30 mg capsule,delayed release(DR/EC) 30 mg PO QDAY finasteride 5 mg tablet 5 mg PO QDAY Patient Comments: TAKE 1 TABLET BY MOUTH EVERY DAY aspirin 81 mg tablet,delayed release (DR/EC) 81 mg PO DAILY benzonatate 100 mg capsule 200 mg PO TID PRN (Reason: cough) allopurinol 100 mg tablet 100 mg PO DAILY Patient Comments: TAKE 2 TABS BY MOUTH 1 TIME A DAY FOR GOUT methimazole 10 mg tablet 20 mg PO DAILY multivitamin [Daily Multi-Vitamin] Tablet 1 tab PO QAM pantoprazole [Protonix] 40 mg tablet,delayed release (DR/EC) 40 mg PO QAM loratadine [Claritin] 10 mg tablet 10 mg PO QDAY PRN (Reason: allergic symptoms) ondansetron HCl 4 mg tablet 4 mg PO TID PRN (Reason: nausea and vomiting) albuterol sulfate 90 mcg/actuation HFA aerosol inhaler 2 puff INHALATION Q4H PRN (Reason: shortness of breath or wheezing) Patient Comments: TAKE 1-2 PUFFS BY MOUTH EVERY 4 HOURS INHALATION NEEDED Discontinued Xarelto 20 mg tablet 20 mg PO QPM Rx Instructions: must administer with evening meal ibuprofen 600 mg tablet 600 mg PO [id number] PRN (Reason: pain) Referrals: No Primary/Family,Physician [Primary Care Provider] - Patient/Caregiver Discharge Instructions Education Materials: DVT Dc Print Language: Lao Stand Alone Forms: [employer] Award Info., Patient Portal Info Letter, Work/Release Restrictions Discharge Order Discharge Orders: Discharge (Routine); Ordered 01/28/25 Ordered By: Francis Delong Quality Discharge Quality Measures VTE therapy MD Attestestation MD Attestation I have discussed and was present for the essential components of the discharge history, physical examination, diagnosis, and discharge treatment plan with the resident. I agree with the patient's discharge care as documented by the resident and amended herein by me. Mitul De La Cruz, . The patient understood all discharge instructions, all questions were answered satisfactorily. The patient was instructed to return to the Emergency Department is symptoms worsened or persisted. Patient was stable, afebrile, tolerating p.o. intake and ambulatory at time of discharge. Patient will need to continue follow-up with vascular surgeon, Dr. John, endocrinology follow- up for hyperthyroidism which is not yet controlled, and possibly hematology follow-up for continued hypercoagulability. Although this document has been carefully reviewed, there may still be some phonetic and other typographical errors. These errors are purely grammatical due to imperfections in the software program and should not be construed in any way to compromise the substance of the patient's medical care during this visit.
--- NOTE | 2025-01-28 18:47 | ECHO_ITS ---
Transthoracic Echo Report Ht (in): 65 Wt (lb): 240 Exam Location: Portable Status: Inpatient Food Beverage Supervisor: NIA Leroy^^^^ Indications: Procedure Performed: BP: / HR: Technical Quality: Fair MEASUREMENTS (Male / Female) Normal Values 2D ECHO LV Diastolic Diameter PLAX 3.4 cm 4.2 - 5.9 / 3.9 - 5.3 cm LV Systolic Diameter PLAX 2.3 cm IVS Diastolic Thickness 2.0 cm 0.6 - 1.0 / 0.6 - 0.9 cm LVPW Diastolic Thickness 1.2 cm 0.6 - 1.0 / 0.6 - 0.9 cm LV Relative Wall Thickness 1.0 LVOT Diameter 1.8 cm Aortic Root Diameter 3.6 cm LA Systolic Diameter LX 2.5 cm 3.0 - 4.0 / 2.7 - 3.8 cm Ascending Aorta Diameter 3.2 cm DOPPLER AV Peak Velocity 132.0 cm/s AV Peak Gradient 7.0 mmHg AV Mean Gradient 4.0 mmHg AV Velocity Time Integral 29.0 cm LVOT Peak Velocity 101.0 cm/s LVOT Peak Gradient 4.1 mmHg LVOT Velocity Time Integral 26.9 cm AV Area Cont Eq vti 2.4 cm? AV Area Cont Eq pk 1.9 cm? MV Area PHT 3.0 cm? Mitral E Point Velocity 48.7 cm/s Mitral A Point Velocity 63.5 cm/s Mitral E to A Ratio 0.8 LV E' Lateral Velocity 10.8 cm/s Mitral E to LV E' Lateral Ratio 4.5 LV E' Septal Velocity 8.4 cm/s Mitral E to LV E' Septal Ratio 5.8 FINDINGS Left Ventricle Normal left ventricular size, wall thickness, systolic function with no obvious regional wall motion abnormalities. There is grade II diastolic dysfunction of the left ventricle (pseudonormal filling pattern). The left ventricular ejection fraction is normal, estimated at 55-60%. Right Ventricle The right ventricle is normal in size and systolic function. The estimated right ventricular systolic pressure, 20 mmHg. Left Atrium The left atrium is normal by two-dimensional, color flow and Doppler imaging with no structural abnormalities, no thrombus formation present. Right Atrium The right atrium is normal by two-dimensional imaging, color flow and Doppler imaging with no structural abnormalities, no thrombus formation present. Atrial Septum The interatrial septum appears normal with no evidence of a shunt. Aorta The aorta is normal by two-dimensional, color flow and Doppler interrogation. Mitral Valve Trace to mild mitral regurgitation. Mild mitral annular calcification. Aortic Valve The aortic valve is trileaflet and normal by two-dimensional, color flow and Doppler interrogation. There is no significant aortic valve regurgitation. Tricuspid Valve There is trace tricuspid valve regurgitation. Pulmonic Valve The pulmonic valve is not well visualized. There is no significant pulmonic valve regurgitation. Vessels The pulmonary artery appears normal. The inferior vena cava pulmonary and hepatic veins appear normal. Pericardium The pericardium is normal by two-dimensional imaging. There is no significant pericardial effusion. CONCLUSIONS Indication: PE LV size and function with EF 55-60%. Diastolic Dysfunction stage I RV size and function. Normal RVSP 25 mmhg. No RV strain Trace-Mild MR & MAC. trace OUMOU Ruiz (Electronically Signed) Final Date: 28 January 2025 14:01
== END 2025-01-28 16:08 | disposition home or self-care (01) ==
LOC: SERX 01-27 16:40 → S2NX 01-28 14:20 → SERHOLD 02-03 07:59 → S2NX 02-03 08:00
PROVIDERS: Internal Medicine Cardiovascular Disease; Physician Assistant; Admitting Provider Student in an Organized Health Care Education/Training Program; Emergency Provider Emergency Medicine; Visit Provider Student in an Organized Health Care Education/Training Program
DX: I26.93 Single subsegmental thrombotic pulmonary embolism without acute cor pulmonale (principal); I27.82 Chronic pulmonary embolism; N40.0 Benign prostatic hyperplasia without lower urinary tract symptoms; M10.9 Gout, unspecified; Z45.2 Encounter for adjustment and management of vascular access device; I82.441 Acute embolism and thrombosis of right tibial vein; I82.220 Acute embolism and thrombosis of inferior vena cava; I50.32 Chronic diastolic (congestive) heart failure; I45.10 Unspecified right bundle-branch block; I25.10 Atherosclerotic heart disease of native coronary artery without angina pectoris; I11.0 Hypertensive heart disease with heart failure; G47.33 Obstructive sleep apnea (adult) (pediatric); F32.A Depression, unspecified; E78.5 Hyperlipidemia, unspecified; E11.9 Type 2 diabetes mellitus without complications; E03.9 Hypothyroidism, unspecified; E21.3 Hyperparathyroidism, unspecified; Z01.810 Encounter for preprocedural cardiovascular examination; I21.A1 Myocardial infarction type 2
CPT/HCPCS: 36415; 71275; 74177; 80053; 81001; 83735; 83880; 84100; 84439; 84443; 84484; 85025; 85610; 85730; 87400; 87811; 93005; 93306; 94660; 96365; 96366; 99285; A4649; G0378; J1643; J1644; J2470; J3490; Q9967; A9270

== ENCOUNTER 2025-03-07 13:59 | Emergency (ER) | payer MEDICAID, SELFPAY ==
[2025-03-07 14:02] VITALS: PULSE 85; RESP 16; O2SAT 97; BMI 39.4
--- NOTE | 2025-03-07 14:10 | PD.EDLOWEX ---
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 Patient states since diagnosed with DVT 01/10/2025 he has had bilateral lower extremity pain. However, noted increased swelling and pain in the last 2 weeks. Reportedly has consulted with cardiovascular surgeon Dr. John since diagnosed with DVT and told they are unable to remove the blood clots. Patient additionally reports feeling short of breath. Patient states he has been compliant with his medications. Denies any chest pain or other associated symptoms. Related Data Home Medications ?Medication ?Instructions ?Recorded ?Confirmed lisinopril 20 mg tablet 20 mg PO BID #0 tabs 08/22/17 01/28/25 metoprolol tartrate 100 mg tablet 100 mg PO BID 03/14/21 01/28/25 metformin 500 mg tablet 500 mg PO HS 06/28/21 01/28/25 ropinirole 0.25 mg tablet 0.25 mg PO HS 10/03/21 01/28/25 amiodarone 200 mg tablet 200 mg PO QDAY 04/05/22 01/28/25 atorvastatin 40 mg tablet 40 mg PO HS 09/04/22 01/28/25 meclizine 25 mg tablet 25 mg PO BID PRN Dizziness 09/04/22 01/28/25 duloxetine 30 mg capsule,delayed 30 mg PO QDAY 10/24/23 01/28/25 release finasteride 5 mg tablet 5 mg PO QDAY 10/24/23 01/28/25 furosemide 20 mg tablet 20 mg PO QDAY 10/24/23 01/28/25 semaglutide 1 mg/dose (4 mg/3 mL) 1 mg subcut QWEEK 10/24/23 01/28/25 subcutaneous pen injector (Ozempic) gabapentin 300 mg capsule 300 mg PO TID 08/07/24 01/28/25 albuterol sulfate 90 mcg/actuation 2 puff inhalation Q4H PRN 01/07/25 01/28/25 aerosol inhaler shortness of breath or wheezing allopurinol 100 mg tablet 100 mg PO DAILY 01/07/25 01/28/25 aspirin 81 mg tablet,delayed 81 mg PO DAILY 01/07/25 01/28/25 release benzonatate 100 mg capsule 200 mg PO TID PRN cough 01/07/25 01/28/25 loratadine 10 mg tablet (Claritin) 10 mg PO QDAY PRN allergic symptoms 01/07/25 01/28/25 methimazole 10 mg tablet 20 mg PO DAILY 01/07/25 01/28/25 multivitamin (Daily Multi-Vitamin 1 tab PO QAM 01/07/25 01/28/25 tablet) ondansetron HCl 4 mg tablet 4 mg PO TID PRN nausea and vomiting 01/07/25 01/28/25 pantoprazole 40 mg tablet,delayed 40 mg PO QAM 01/07/25 01/28/25 release (Protonix) Previous Rx's ?Medication ?Instructions ?Recorded tamsulosin 0.4 mg capsule (Flomax) 0.4 mg PO QDAY #7 caps 08/23/24 rivaroxaban 20 mg tablet (Xarelto) 20 mg PO QDAY #30 tabs 01/28/25 Allergies Allergy/AdvReac Type Severity Reaction Status Date / Time No Known Allergies Allergy Verified 01/22/25 16:29 Review of Systems Review of Systems Narrative Review of Systems: GEN: No fever, no chills, no weight loss EYES: No discharge, no visual changes, no pain HEENT: No ear pain, no congestion, no sore throat PULM: +shortness of breath, no cough, no congestion CV: No chest pain, no dyspnea on exertion, no palpitations GI: No nausea, no vomiting, no diarrhea, no pain, no constipation : No frequency, no urgency, no dysuria MUSC/SKEL: +BLE pain, no back pain SKIN: No rash NEURO: No weakness, no headache ED Exam Narrative Physical exam: GENERAL APPEARANCE: alert and oriented x 4, well-developed, well-nourished, no acute distress HEENT: Normocephalic, atraumatic; pupils equal, round, reactive to light; EOMI; mucous membranes pink, moist; oropharynx clear NECK: Supple LUNGS: CTABL; no wheezes, no rales, no rhonchi HEART: Regular rate, regular rhythm; normal S1, S2; no murmurs ABDOMEN: non distended; normal BS; soft, no tenderness, no guarding, no rebound; no masses, no organomegaly, no hernia BACK: no CVA tenderness EXTREMITIES: mild bilateral leg edema, no tenderness NEUROLOGIC: awake; alert and oriented x4; cranial nerves II-XII grossly intact; no focal sensory or motor deficits PSYCHIATRIC: appropriate mood and affect SKIN: warm, dry, normal color; no rashes Course Quality Measures none Orders Category Date Time Status US venous doppler LE BI Stat Exams 03/07/25 14:09 Completed Vital Signs Vital signs: Vital Signs Temperature 97.9 F 03/07/25 14:22 Pulse Rate 60 03/07/25 14:22 Respiratory Rate 16 03/07/25 14:22 Blood Pressure 118/77 03/07/25 14:22 Pulse Oximetry (%) 99 03/07/25 14:22 Oxygen Delivery Method Room Air 03/07/25 14:22 Pulse ox is 99% on room air which is adequate. Extremity Injury, Lower MDM Narrative MDM Narrative:: Katharine Barbour am scribing for and in the presence of Dr. Galloway. 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 Date and time of exam: March 07, 2025 at 1457 hours INDICATIONS: Bilateral leg swelling and pain beginning 2 weeks ago, positive for deep vein thrombus on venous Doppler January 10, 2025 Technique: Multiple sonographic images of the deep venous system have been obtained. B-mode/2-D grayscale imaging of vascular structures and Doppler spectral analysis (waveforms) and color performed Both legs are examined. Findings: Partial thrombus in the mid right superficial femoral vein as well as right popliteal vein Partial thrombus in the left popliteal vein and left posterior tibial vein IMPRESSION: Bilateral partial DVT as above Dictated By: Deon Hand MD Signed By: <Electronically signed by Deon Hand MD in OV> 03/07/25 8171 Medications / Prescriptions Medications or Prescriptions considered but not ordered:: None Medication administrations:: None Consultations Consultation(s) initiated? (list below): No Diagnosis Extremity Injury, Lower Differential Diagnosis: other (cellulitis, DVT, leg edema ) Most likely diagnosis given after review of the tests above:: DVT Admission Indicated Admission indicated?: not indicated Admission Request Was there a request for admission?: No Disposition Plan Disposition Plan: Discharge Discharge Attestation Discharge Attestation: The patient and all family members were given an opportunity to ask questions and understood the discharge instructions. Discharge instructions specifically effects, indications for sooner follow up or return to the emergency department, and the expected course of current diagnosis. Patient condition: Stable Discharge Plan Plan Patient Disposition: HOME (Self Care) Prescriptions/Referrals Prescriptions/Med Rec: No Action gabapentin 300 mg capsule 300 mg PO TID lisinopril 20 MG tablet 20 mg PO BID Qty: 0 metformin 500 mg tablet 500 mg PO HS Patient Comments: TAKE 1 TABLET BY MOUTH EVERY DAY AT BEDTIME FOR DIABETES metoprolol tartrate 100 mg tablet 100 mg PO BID Patient Comments: TAKE 1 TABLET BY MOUTH TWICE A DAY FOR BLOOD PRESSURE ropinirole 0.25 mg Tablet 0.25 mg PO HS amiodarone 200 mg Tablet 200 mg PO QDAY atorvastatin 40 mg tablet 40 mg PO HS Patient Comments: TAKE 1 TABLET BY MOUTH AT BEDTIME FOR CHOLESTEROL meclizine 25 mg tablet 25 mg PO BID PRN (Reason: Dizziness) Patient Comments: TAKE 1-2 TABLETS BY MOUTH TWICE A DAY NEEDED FOR DIZZINESS tamsulosin [Flomax] 0.4 mg capsule 0.4 mg PO QDAY Qty: 7 0RF furosemide 20 mg tablet 20 mg PO QDAY Ozempic 1 mg/dose (4 mg/3 mL) pen injector 1 mg SUBCUT QWEEK Patient Comments: [facility]er Rx Instructions: 1 time weekly duloxetine 30 mg capsule,delayed release(DR/EC) 30 mg PO QDAY finasteride 5 mg tablet 5 mg PO QDAY Patient Comments: TAKE 1 TABLET BY MOUTH EVERY DAY aspirin 81 mg tablet,delayed release (DR/EC) 81 mg PO DAILY benzonatate 100 mg capsule 200 mg PO TID PRN (Reason: cough) allopurinol 100 mg tablet 100 mg PO DAILY Patient Comments: TAKE 2 TABS BY MOUTH 1 TIME A DAY FOR GOUT methimazole 10 mg tablet 20 mg PO DAILY multivitamin [Daily Multi-Vitamin] Tablet 1 tab PO QAM pantoprazole [Protonix] 40 mg tablet,delayed release (DR/EC) 40 mg PO QAM loratadine [Claritin] 10 mg tablet 10 mg PO QDAY PRN (Reason: allergic symptoms) ondansetron HCl 4 mg tablet 4 mg PO TID PRN (Reason: nausea and vomiting) albuterol sulfate 90 mcg/actuation HFA aerosol inhaler 2 puff INHALATION Q4H PRN (Reason: shortness of breath or wheezing) Patient Comments: TAKE 1-2 PUFFS BY MOUTH EVERY 4 HOURS INHALATION NEEDED Xarelto 20 mg tablet 20 mg PO QDAY Qty: 30 3RF Rx Instructions: must administer with evening meal Referrals: Akila Diaz PA-C [Primary Care Provider] - In 1 week Problem List Clinical Impression: Deep vein thrombosis Patient/Caregiver Discharge Instructions Education Materials: DVT Dc Additional Instructions: Continue medications and follow up with your doctor as recommended. Print Language: [place] Stand Alone Forms: [employer] Award Info., Patient Portal Info Letter
[2025-03-07 14:22] VITALS: BP 118/77; PULSE 60; RESP 16; TEMP 36.6; O2SAT 99
[2025-03-07 16:25] VITALS: BP 132/82; PULSE 77; RESP 18; TEMP 36.8; O2SAT 96
== END 2025-03-07 17:03 | disposition home or self-care (01) ==
PROVIDERS: Emergency Provider Emergency Medicine; PCP Physician Assistant
DX: I82.411 Acute embolism and thrombosis of right femoral vein (principal); I82.433 Acute embolism and thrombosis of popliteal vein, bilateral; I82.442 Acute embolism and thrombosis of left tibial vein
CPT/HCPCS: 93970; 99284

== ENCOUNTER 2025-03-20 12:20 | Inpatient (IN) | payer MEDICAID, SELFPAY ==
[2025-03-20] VITALS (14 sets, daily range): BP systolic 114–159; BP diastolic 70–98; PULSE 79–89; RESP 14–96; TEMP 36.4–36.8; O2SAT 90–98; BMI 38.9
--- NOTE | 2025-03-20 12:54 | PD.EDSOB ---
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 Described feeling he is not able to take a deep breath without any known modifying factors. Patient additionally complains of nausea and vomiting. Denies fevers, chills, chest pain, abdominal pain, or urinary symptoms. Related Data Home Medications ?Medication ?Instructions ?Recorded ?Confirmed lisinopril 20 mg tablet 20 mg PO BID #0 tabs 08/22/17 01/28/25 metoprolol tartrate 100 mg tablet 100 mg PO BID 03/14/21 01/28/25 metformin 500 mg tablet 500 mg PO HS 06/28/21 01/28/25 ropinirole 0.25 mg tablet 0.25 mg PO HS 10/03/21 01/28/25 amiodarone 200 mg tablet 200 mg PO QDAY 04/05/22 01/28/25 atorvastatin 40 mg tablet 40 mg PO HS 09/04/22 01/28/25 meclizine 25 mg tablet 25 mg PO BID PRN Dizziness 09/04/22 01/28/25 duloxetine 30 mg capsule,delayed 30 mg PO QDAY 10/24/23 01/28/25 release finasteride 5 mg tablet 5 mg PO QDAY 10/24/23 01/28/25 furosemide 20 mg tablet 20 mg PO QDAY 10/24/23 01/28/25 semaglutide 1 mg/dose (4 mg/3 mL) 1 mg subcut QWEEK 10/24/23 01/28/25 subcutaneous pen injector (Ozempic) gabapentin 300 mg capsule 300 mg PO TID 08/07/24 01/28/25 albuterol sulfate 90 mcg/actuation 2 puff inhalation Q4H PRN 01/07/25 01/28/25 aerosol inhaler shortness of breath or wheezing allopurinol 100 mg tablet 100 mg PO DAILY 01/07/25 01/28/25 aspirin 81 mg tablet,delayed 81 mg PO DAILY 01/07/25 01/28/25 release benzonatate 100 mg capsule 200 mg PO TID PRN cough 01/07/25 01/28/25 loratadine 10 mg tablet (Claritin) 10 mg PO QDAY PRN allergic symptoms 01/07/25 01/28/25 methimazole 10 mg tablet 20 mg PO DAILY 01/07/25 01/28/25 multivitamin (Daily Multi-Vitamin 1 tab PO QAM 01/07/25 01/28/25 tablet) ondansetron HCl 4 mg tablet 4 mg PO TID PRN nausea and vomiting 01/07/25 01/28/25 pantoprazole 40 mg tablet,delayed 40 mg PO QAM 01/07/25 01/28/25 release (Protonix) Previous Rx's ?Medication ?Instructions ?Recorded tamsulosin 0.4 mg capsule (Flomax) 0.4 mg PO QDAY #7 caps 08/23/24 rivaroxaban 20 mg tablet (Xarelto) 20 mg PO QDAY #30 tabs 01/28/25 Allergies Allergy/AdvReac Type Severity Reaction Status Date / Time No Known Allergies Allergy Verified 01/22/25 16:29 Review of Systems Review of Systems Narrative Review of Systems: GEN: No fever, no chills, no weight loss EYES: No discharge, no visual changes, no pain HEENT: No ear pain, no congestion, no sore throat PULM: + shortness of breath, +cough, no congestion CV: No chest pain, no dyspnea on exertion, no palpitations GI: + nausea, + vomiting, no diarrhea, no pain, no constipation : No frequency, no urgency, no dysuria MUSC/SKEL: No joint pain, no back pain SKIN: No rash PSYCH: No hallucinations, no depression HEME/LYMPH: No easy bleeding or bruising tendencies NEURO: No weakness, no headache Past Medical History Past Medical History CARDIAC: Positive Myocardial Infarction, Angina, Coronary Artery Disease, Atherosclerotic Heart Disease, Hypercholesterolemia, Edema, Deep Vein Thrombosis and Hypertension RESPIRATORY: Positive Asthma, Pneumonia, Pulmonary Embolism and Sleep Apnea GASTROINTESTINAL: Positive Gastrointestinal Disorders, Gastroesophageal Reflux Disease and Obesity GENITOURINARY: Positive Genitourinary Disorders, Kidney Stones and Benign Prostatic Hyperplasia ENDOCRINE: Positive Endocrine Disorders and Diabetes Mellitus Type 2 HEMATOLOGIC: Positive Blood Disorders and Clotting Problems PSYCHO/SOCIAL: Positive Anxiety OTHER HISTORY: Positive Developmental Delay and Falls Family History FAMILY HISTORY: Positive Family Cardiac Disorders, Family Cancer and Family Surgery Surgical History SURGICAL: Positive Vascular Surgery and Angiogram; Negative Coronary Stent Social History SMOKING STATUS: Never smoker SECOND HAND EXPOSURE: No SUBSTANCE USE: does not use OCCUPATION: [employer] ED Exam Narrative Physical exam: Patient examined in ambulance bay General Limitations: Present no limitations General appearance: Present alert, obese and other (tachypneic ) Head Head exam: Present atraumatic and normocephalic Eye Eye exam: Present normal appearance, PERRL and EOMI ENT ENT exam: Present normal exam, normal oropharynx and mucous membranes moist Neck Neck exam: Present normal inspection, full ROM, trachea midline and other (no masses ) Chest Chest inspection: Present normal inspection and symmetric chest wall rise Respiratory Respiratory exam: Present other (Diminished breath sounds, no rales/wheezing/rhonchi) Cardiovascular Cardiovascular exam: Present regular rate, normal rhythm and other (distant heart sounds) Abdominal Exam Abdominal exam: Present soft and normal bowel sounds Extremities Exam Extremities exam: Present full ROM and pedal edema Back Exam Back exam: Present normal inspection and full ROM Neurological Exam Neurological exam: Present alert, oriented X3 and CN II-XII intact Psychiatric Psychiatric exam: Present normal affect and normal mood Skin Skin exam: Present warm, dry, intact and normal color Course Quality Measures none Orders Category Date Time Status Raise Drill Operator NOW Care 03/20/25 13:43 Active Continuous Pulse Oximetry NOW Care 03/20/25 13:43 Completed EKG (ED ONLY) *Do not use* NOW Care 03/20/25 13:44 Completed Insert IV NOW Care 03/20/25 13:43 Active Intake and Output Routine Care 03/20/25 13:44 Ordered CXRP [XR chest 1V portable] Stat Exams 03/20/25 13:46 Completed EKG (ED Only) Stat Exams 03/20/25 13:43 Draft B-Type Natriuretic Peptide Routine Lab 03/20/25 15:19 Completed Blood Culture (Lab) Stat Lab 03/20/25 17:53 Received CBC Stat Lab 03/20/25 15:19 Completed Comprehensive Metabolic Panel Stat Lab 03/20/25 15:19 Completed Troponin I Stat Lab 03/20/25 15:19 Completed Troponin I Stat Lab 03/20/25 17:53 Completed Urinalysis Stat Lab 03/20/25 14:58 Completed Doxycycline Inj [Vibramycin Inj] 100 mg Med 03/20/25 17:19 Discontinued Sodium Chloride 0.9% (Pop) [NS 0.9% mini bag] 100 ml IV X1 Furosemide Inj [Lasix Inj] Med 03/20/25 13:43 Discontinued 40 mg IVP X1 ONE Metoprolol Tartrate [Lopressor] Med 03/20/25 13:43 Discontinued 50 mg PO X1 ONE Nitroglycerin Oint 2% [Nitro-paste Oint 2%] Med 03/20/25 13:43 Discontinued 1 inch TOP X1 ONE Promethazine Inj [Phenergan Inj] Med 03/20/25 15:27 Discontinued 25 mg IM X1 ONE cefTRIAXone [Rocephin] 2 gm Med 03/20/25 17:19 Discontinued SODIUM CHLORIDE 0.9% (Popper) [Ns 0.9% (P)] 50 ml IV X1 Oxygen Delivery NOW RT 03/20/25 13:44 Active Vital Signs Vital signs: Vital Signs Temperature 98.2 F 03/20/25 12:24 Pulse Rate 88 03/20/25 12:24 Respiratory Rate 18 03/20/25 12:24 Blood Pressure 159/88 H 03/20/25 12:24 Pulse Oximetry (%) 96 03/20/25 12:24 Oxygen Delivery Method Room Air 03/20/25 12:24 Pulse ox is 96% on room air which is adequate. Shortness of Breath / Dyspnea MDM Narrative MDM Narrative:: Katharine Barbour am scribing for and in the presence of Dr. Oliva. 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 Sinus rhythm, rate 89, no STEMI. ) Lab and/or radiology exams considered but not ordered:: None Interpretation Summary: Ordering Physician: Kevin Oliva MD Date of Service: 03/20/25 Procedure(s): XR chest 1V portable Accession Number(s): [id number] cc: Kevin Oliva MD; Deon Hand MD; NO PRIMARY/FAMILY,PHYSICIAN~ Examination: AP chest single view Technique one AP portable upright chest single view Exam date and time: March 20, 2025 1511 hours INDICATIONS: Shortness of breath today. FINDINGS: Suspicious for early right upper lobe pneumonia Reduced inspiratory effort Normal heart size IMPRESSION: Suspicious for early right upper lobe pneumonia Dictated By: Deon Hand MD Signed By: <Electronically signed by Deon Hand MD in OV> 03/20/25 1518 Medications / Prescriptions Medications or Prescriptions considered but not ordered:: None Medication administrations:: Medication Administration History Discontinued Medications Furosemide (Furosemide Inj 10 Mg/Ml 4ml Vial) 40 mg IVP X1 ONE Stop: 03/20/25 13:44 Last Admin: 03/20/25 14:48 Dose: 40 mg Documented By: GETACHEW Ceftriaxone Sodium 2 gm/ (Sodium Chloride) 50 mls @ 100 mls/hr IV X1 ONE Stop: 03/20/25 17:48 Last Infusion: 03/20/25 18:12 Dose: Infused Documented By: Admin: 03/20/25 17:42 Dose: 100 mls/hr Documented By: TM Doxycycline Hyclate 100 mg/ (Sodium Chloride) 100 mls @ 100 mls/hr IV X1 ONE Stop: 03/20/25 18:18 Last Infusion: 03/20/25 18:42 Dose: Infused Documented By: Admin: 03/20/25 17:42 Dose: 100 mls/hr Documented By: TM Metoprolol Tartrate (Metoprolol Tartrate 25 Mg Tablet) 50 mg PO X1 ONE Stop: 03/20/25 13:44 Last Admin: 03/20/25 14:19 Dose: 50 mg Documented By: TM Nitroglycerin (Nitroglycerin Oint 2% 1 Inch Packet) 1 inch TOP X1 ONE Stop: 03/20/25 13:44 Last Admin: 03/20/25 14:18 Dose: 1 inch Documented By: CHRISTELLE Promethazine HCl (Promethazine Inj 25 Mg/Ml Vial) 25 mg IM X1 ONE; Protocol Stop: 03/20/25 15:28 Last Admin: 03/20/25 15:42 Dose: 25 mg Documented By: TM See above Consultations Consultation(s) initiated? (list below): Yes Consultation #1 (Physician, Specialty, Details): I spoke with hospitalist Dr. Orozco. Discussed patients PMHx, HPI, ED course, exam findings, labs, and radiology results. The hospitalist agree to accept the patient for admission. Time: 18:54 Diagnosis Shortness of Breath Differential Diagnosis: acute exacerbation of chronic obstructive airways disease, congestive heart failure, community acquired pneumonia and asthma with exacerbation Most likely diagnosis given after review of the tests above:: Right upper lobe pneumonia Elevated troponin Dyspnea Admission Indicated Admission indicated?: indicated Admission Request Was there a request for admission?: Yes Admission Attestation Admission request attestation: Discussed case with [] from Hospitalist service regarding admission. Discussed patients ED course, exam findings, labs, and radiology results. The Hospitalist [agrees,declines] to accept the patient for admission. Disposition Plan Disposition Plan: Admit Discharge Plan Plan Patient Disposition: Admit Acute Care w/in Hospital Prescriptions/Referrals Prescriptions/Med Rec: No Action gabapentin 300 mg capsule 300 mg PO TID lisinopril 20 MG tablet 20 mg PO BID Qty: 0 metformin 500 mg tablet 500 mg PO HS Patient Comments: TAKE 1 TABLET BY MOUTH EVERY DAY AT BEDTIME FOR DIABETES metoprolol tartrate 100 mg tablet 100 mg PO BID Patient Comments: TAKE 1 TABLET BY MOUTH TWICE A DAY FOR BLOOD PRESSURE ropinirole 0.25 mg Tablet 0.25 mg PO HS amiodarone 200 mg Tablet 200 mg PO QDAY atorvastatin 40 mg tablet 40 mg PO HS Patient Comments: TAKE 1 TABLET BY MOUTH AT BEDTIME FOR CHOLESTEROL meclizine 25 mg tablet 25 mg PO BID PRN (Reason: Dizziness) Patient Comments: TAKE 1-2 TABLETS BY MOUTH TWICE A DAY NEEDED FOR DIZZINESS tamsulosin [Flomax] 0.4 mg capsule 0.4 mg PO QDAY Qty: 7 0RF furosemide 20 mg tablet 20 mg PO QDAY Ozempic 1 mg/dose (4 mg/3 mL) pen injector 1 mg SUBCUT QWEEK Patient Comments: [facility] Rx Instructions: 1 time weekly duloxetine 30 mg capsule,delayed release(DR/EC) 30 mg PO QDAY finasteride 5 mg tablet 5 mg PO QDAY Patient Comments: TAKE 1 TABLET BY MOUTH EVERY DAY aspirin 81 mg tablet,delayed release (DR/EC) 81 mg PO DAILY benzonatate 100 mg capsule 200 mg PO TID PRN (Reason: cough) allopurinol 100 mg tablet 100 mg PO DAILY Patient Comments: TAKE 2 TABS BY MOUTH 1 TIME A DAY FOR GOUT methimazole 10 mg tablet 20 mg PO DAILY multivitamin [Daily Multi-Vitamin] Tablet 1 tab PO QAM pantoprazole [Protonix] 40 mg tablet,delayed release (DR/EC) 40 mg PO QAM loratadine [Claritin] 10 mg tablet 10 mg PO QDAY PRN (Reason: allergic symptoms) ondansetron HCl 4 mg tablet 4 mg PO TID PRN (Reason: nausea and vomiting) albuterol sulfate 90 mcg/actuation HFA aerosol inhaler 2 puff INHALATION Q4H PRN (Reason: shortness of breath or wheezing) Patient Comments: TAKE 1-2 PUFFS BY MOUTH EVERY 4 HOURS INHALATION NEEDED Xarelto 20 mg tablet 20 mg PO QDAY Qty: 30 3RF Rx Instructions: must administer with evening meal Referrals: No Primary/Family,Physician [Primary Care Provider] - In 1 week Problem List Clinical Impression: Right upper lobe pneumonia, Elevated troponin, Dyspnea Patient/Caregiver Discharge Instructions Print Language: Khmer Stand Alone Forms: [employer] Award Info., Patient Portal Info Letter
--- NOTE | 2025-03-20 13:43 | EKG_ITS ---
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
--- NOTE | 2025-03-20 13:46 | XR_ITS ---
Examination: AP chest single view Technique one AP portable upright chest single view Exam date and time: March 20, 2025 1511 hours INDICATIONS: Shortness of breath today. FINDINGS: Suspicious for early right upper lobe pneumonia Reduced inspiratory effort Normal heart size IMPRESSION: Suspicious for early right upper lobe pneumonia
[2025-03-20] MEDS: NITROGLYCERIN OINT 2% 1 INCH PACKET TOP (14:18)
[2025-03-20] MEDS: METOPROLOL TARTRATE 25 MG TABLET 50 MG PO (14:19)
[2025-03-20] MEDS: FUROSEMIDE INJ 10 MG/ML 4ML VIAL 40 MG IVP (14:48)
[2025-03-20 15:05] LABS: Collection Type, Urine Clean Catch
[2025-03-20 15:16] LABS: Bilirubin,Urine Negative (Negative); Blood,Urine Negative (Negative); Clarity,Urine Clear (Clear/Hazy); Color,Urine Lt-Yellow (Lt Yel-Yel); Glucose, Urine Negative (Negative); Ketones,Urine Negative (Negative); Leukocyte Esterase,Urine Negative (Negative); Nitrite,Urine Negative (Negative); Protein,Urine Negative (Neg - Trace); RBC,Urine 4 /hpf (0-3); Specific Gravity,Urine 1.023 (1.001-1.035); Squamous Epithelial Cell,Urine < 1 /hpf (0-5); Urobilinogen,Urine Negative mg/dL (0.0-1.0); WBC,Urine 1 /hpf (0-5)
[2025-03-20 15:29] LABS: Basophils % (Auto) 0 % (0-2.5); Eosinophils # (Auto) 0.1 Thou/mm3 (0.0-0.5); Eosinophils % (Auto) 1 % (0-10); Hematocrit 50.4 % (41.0-53.0); Hemoglobin 17.1 g/dL (13.5-16.0); Immature Granulocytes % (Auto) 0 % (0-0); Immature Granulocytes Auto 0.03 Thou/mm3 (0.00-0.00); Lymphocytes # (Auto) 0.5 Thou/mm3 (1.0-4.8); Lymphocytes % (Auto) 5 % (10-50); Mean Corpuscular HGB Conc 33.9 g/dl (31.0-37.0); Mean Corpuscular Volume 86 fL (80-100); Monocytes # (Auto) 0.8 Thou/mm3 (0.0-0.8); Monocytes % (Auto) 8 % (0-12); Neutrophils # (Auto) 8.1 Thou/mm3 (1.8-7.7); Neutrophils % (Auto) 86 % (37-80); Nucleated Red Blood Cell % 0 /100 WBC (0); Platelet Count 198 Thou/mm3 (140-440); Red Blood Count 5.89 Miln/mm3 (4.50-5.90); White Blood Count 9.5 Thou/mm3 (3.8-10.6)
[2025-03-20] MEDS: PROMETHAZINE INJ 25 MG/ML VIAL IM (15:42)
[2025-03-20 15:50] LABS: Alanine Aminotransferase 19 U/L (10-49); Albumin, Serum 4.1 gm/dL (3.5-5.0); Albumin/Globulin Ratio 1.5 (1.2-2.2); Alkaline Phosphatase 198 U/L (46-116); Anion Gap 9 (7-16); Aspartate Amino Transferase 21 U/L (0-34); BUN/Creatinine Ratio 11 Ratio (12-20); Blood Urea Nitrogen 11 mg/dL (9-23); Calcium 8.7 mg/dL (8.3-10.6); Calcium (Corrected) 8.7 mg/dL (8.5-10.1); Carbon Dioxide 25.4 mMol/L (20.0-31.0); Chloride 106 mMol/L (98-107); Estimated Creatinine Clearance 100.3 mL/min (>60); Globulin 2.8 gm/dL (2.3-3.5); Glucose 99 mg/dL (74-106); Osmolality,Calculated 278 (275-295); Potassium 4.1 mMol/L (3.4-5.1); Sodium 140 mMol/L (136-145); Total Protein 6.9 gm/dL (5.7-8.2); eGFR > 60 See Note
[2025-03-20 15:54] LABS: Troponin I 0.489 ng/mL (0.0-0.045)
[2025-03-20 15:55] LABS: B-Type Natriuretic Peptide 34 pg/mL (0-100)
[2025-03-20] MEDS: DOXYCYCLINE INJ 100 MG in SODIUM CHLORIDE 0.9% (POP) 100 ML IV (17:42)
[2025-03-20] MEDS: cefTRIAXone 2 GM in SODIUM CHLORIDE 0.9% (Popper) 50 ML IV (17:42)
[2025-03-20 18:25] LABS: Troponin I 0.488 ng/mL (0.0-0.045)
--- NOTE | 2025-03-20 19:09 | PC.NURSE ---
report recieved. Pt resting quietly at this time. ÁNGEL.
--- NOTE | 2025-03-20 19:35 | PD.HHHP ---
Documentation for date of: 03/20/25 HPI - Hospitalist History of Present Illness History of Present Illness: SOB History of present illness: A 49-year-old male presented to the ER with the chief complaint of shortness of breath. The patient described sudden onset shortness of breath starting this morning. He reported associated vomiting, chills, chest pain, and a chronic cough with phlegm. He also c/o bilateral leg swelling (chronic), decreased appetite, and fatigue. Patient denied fever, or diarrhea. He presented to the ER today due to worsening symptoms. The patient has a history of HTN, DM, HFpEF (EF 55?60%), CAD, DVT and PE on Xarelto, s/p IVC filter placement, heterozygous Factor V Leiden mutation, AYLEEN, BPH, and hyperthyroidism. Surgical history includes IVC filter placement. Social history includes no smoking, alcohol, or drug use. He lives with a roommate, is single. He has a known history of chronic thromboembolic disease and was previously seen by vascular surgery, who advised no further intervention could be done. He takes Xarelto daily and confirmed taking it this morning. He is functionally independent at baseline. Code status is full. In the ER, vital signs recorded as temp 97.8 F, HR 88 bpm, RR 20, BP 138/82 mmHg. Labs revealed WBC 9.5, Hb 17.1, Plt 198, Na 140, K 4.1, BUN 11, Cr 1.0, troponin 0.489->0.488. EKG showed sinus rhythm with non-specific T wave inversion. CXR suspicious for early right upper lobe pneumonia. Due to his complex medical conditions, he is going to be admitted for further evaluation and treatment. Review of Systems Review of Systems Narrative Review of Systems: A 14 point review of systems was assessed and negative except for that per HPI Past Medical History Past Medical History NEUROLOGIC: Negative Neurological Disorders CARDIAC: Positive Myocardial Infarction, Angina, Coronary Artery Disease, Atherosclerotic Heart Disease, Hypercholesterolemia, Edema, Deep Vein Thrombosis and Hypertension; Negative Cardiac Disorders or Congestive Heart Failure RESPIRATORY: Positive Asthma, Pneumonia, Pulmonary Embolism and Sleep Apnea; Negative Chronic Obstructive Pulmonary Disease (COPD) GASTROINTESTINAL: Positive Gastrointestinal Disorders, Gastroesophageal Reflux Disease and Obesity GENITOURINARY: Positive Genitourinary Disorders, Kidney Stones and Benign Prostatic Hyperplasia; Negative Renal Disease MUSCULOSKELETAL: Negative Musculoskeletal Disorders ENDOCRINE: Positive Endocrine Disorders and Diabetes Mellitus Type 2; Negative Diabetes Mellitus Type 1 HEMATOLOGIC: Positive Blood Disorders and Clotting Problems; Negative Anemia or Sickle Cell Disease PSYCHO/SOCIAL: Positive Anxiety OTHER HISTORY: Positive Developmental Delay and Falls; Negative Autoimmune Disease, Blood Transfusions, Anesthesia Reactions or Cancer Family History FAMILY HISTORY: Positive Family Cardiac Disorders, Family Cancer and Family Surgery; Negative Family Neurologic Problems, Family Psychiatric Problems, Family Respiratory Disorders, Family Gastrointestinal Problems or Family Anesthesia Reaction Surgical History SURGICAL: Positive Vascular Surgery and Angiogram; Negative Coronary Stent Social History SMOKING STATUS: Never smoker SECOND HAND EXPOSURE: No SUBSTANCE USE: does not use 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[employer] 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 and Allergies Home Medications ?Medication ?Instructions ?Recorded ?Confirmed ?Type lisinopril 20 mg tablet 20 mg PO BID #0 tabs 08/22/17 01/28/25 History metoprolol tartrate 100 mg tablet 100 mg PO BID 03/14/21 01/28/25 History metformin 500 mg tablet 500 mg PO HS 06/28/21 01/28/25 History ropinirole 0.25 mg tablet 0.25 mg PO HS 10/03/21 01/28/25 History amiodarone 200 mg tablet 200 mg PO QDAY 04/05/22 01/28/25 History atorvastatin 40 mg tablet 40 mg PO HS 09/04/22 01/28/25 History meclizine 25 mg tablet 25 mg PO BID PRN Dizziness 09/04/22 01/28/25 History duloxetine 30 mg capsule,delayed 30 mg PO QDAY 10/24/23 01/28/25 History release finasteride 5 mg tablet 5 mg PO QDAY 10/24/23 01/28/25 History furosemide 20 mg tablet 20 mg PO QDAY 10/24/23 01/28/25 History semaglutide 1 mg/dose (4 mg/3 mL) 1 mg subcut QWEEK 10/24/23 01/28/25 History subcutaneous pen injector (Ozempic) gabapentin 300 mg capsule 300 mg PO TID 08/07/24 01/28/25 History albuterol sulfate 90 mcg/actuation 2 puff inhalation Q4H PRN 01/07/25 01/28/25 History aerosol inhaler shortness of breath or wheezing allopurinol 100 mg tablet 100 mg PO DAILY 01/07/25 01/28/25 History aspirin 81 mg tablet,delayed 81 mg PO DAILY 01/07/25 01/28/25 History release benzonatate 100 mg capsule 200 mg PO TID PRN cough 01/07/25 01/28/25 History loratadine 10 mg tablet (Claritin) 10 mg PO QDAY PRN allergic symptoms 01/07/25 01/28/25 History methimazole 10 mg tablet 20 mg PO DAILY 01/07/25 01/28/25 History multivitamin (Daily Multi-Vitamin 1 tab PO QAM 01/07/25 01/28/25 History tablet) ondansetron HCl 4 mg tablet 4 mg PO TID PRN nausea and vomiting 01/07/25 01/28/25 History pantoprazole 40 mg tablet,delayed 40 mg PO QAM 01/07/25 01/28/25 History release (Protonix) Allergies Allergy/AdvReac Type Severity Reaction Status Date / Time No Known Allergies Allergy Verified 01/22/25 16:29 Exam Vital Signs Temp Pulse Resp BP Pulse Ox O2 Del Method 97.6 F 82 19 142/84 H 96 Room Air 03/20/25 18:37 03/20/25 18:37 03/20/25 18:37 03/20/25 18:37 03/20/25 18:37 03/20/25 18:37 Narrative Constitutional: Male, in no apparent distress. Eyes: Extraocular movements intact. No ptosis. PERRL. Neck: Supple, trachea midline. No thyromegaly. Lungs: Clear and good breath sounds equally. Crackles. CV: S1, S2. Regular rate and rhythm. GI: Soft, nontender. No HSM. Musculoskeletal: No cyanosis, clubbing. BLE edema. Neuro: No focal deficit. No sensory deficit. Alert and oriented x3. Psychiatric: No signs of depression and is nonfocal. Skin: Warm and dry. No acute lesions. Results - Hospitalist Labs Diagrams: 03/20/25 15:19 03/20/25 15:19 Labs: Short CBC 03/20/25 Range/Units 15:19 WBC 9.5 (3.8-10.6) Thou/mm3 Hgb 17.1 H (13.5-16.0) g/dL Hct 50.4 (41.0-53.0) % Plt Count 198 (140-440) Thou/mm3 BMP 03/20/25 15:19 Sodium 140 Potassium 4.1 Chloride 106 Carbon Dioxide 25.4 BUN 11 Creatinine 1.0 Glucose 99 Calcium 8.7 Cardiac Enzymes 03/20/25 03/20/25 Range/Units 15:19 17:53 Troponin I 0.489 H* 0.488 H* (0.0-0.045) ng/mL Liver Function 03/20/25 Range/Units 15:19 Total Bilirubin 1.0 (0.3-1.2) mg/dL AST 21 (0-34) U/L ALT 19 (10-49) U/L Alkaline Phosphatase 198 H (46-116) U/L Albumin 4.1 (3.5-5.0) gm/dL Urine 03/20/25 Range/Units 14:58 Urine Color Lt-Yellow (Lt Yel-Yel) Urine Clarity Clear (Clear/Hazy) Urine pH 8.0 H (5.0-7.0) Ur Specific [place] 1.023 (1.001-1.035) Urine Protein Negative (Neg - Trace) Urine Glucose (UA) Negative (Negative) Assessment & Plan -Hospitalist Additional Assessment #SOB #Pneumonia Assessment: Sudden onset SOB with vomiting, chills, chest pain; chronic cough with phlegm; CXR with RUL infiltrate; chronic thromboembolic disease; history of PE/DVT on Xarelto; vitals stable; troponin slightly elevated without dynamic change Plan: - Oxygen supplement - Start empiric antibiotics for suspected pneumonia (ceftriaxone + azithromycin) #Heart Failure with Preserved Ejection Fraction (HFpEF) Assessment: Known HFpEF; presenting with SOB, fatigue, and LE edema; vitals stable; no signs of acute decompensation Plan: - IV diuretics - Continue home antihypertensives - Avoid fluid overload - Sodium-restricted diet #Chronic Thromboembolic Disease / PE on Anticoagulation Assessment: History of PE, IVC filter, Factor V Leiden heterozygous, on Xarelto; confirmed compliance; risk of recurrent events despite anticoagulation Plan: - Continue Xarelto #Coronary Artery Disease / Elevated Troponin, chronic Assessment: Elevated troponin without significant dynamic rise; nonspecific T wave changes; no clear ACS symptoms; CAD history Plan: - One more troponin AM #Type 2 Diabetes Mellitus Assessment: Known DM Plan: - Monitor blood glucose levels inpatient; target <140 mg/dL preprandial and <180 mg/dL random - Insulin sliding scale #Hypertension Assessment: Known HTN; BP 138/82 in ED; no acute concern Plan: - Continue home antihypertensives as tolerated #Hyperthyroidism Assessment: On methimazole Plan: - Check TFT - Continue methimazole Quality Measures Quality Measures none
[2025-03-20 20:07] LABS: Free T4 (Free Thyroxine) 1.89 ng/dL (0.89-1.76); Thyroid Stimulating Hormone < 0.01 uIU/mL (0.55-4.78)
[2025-03-20] MEDS: AZITHROMYCIN INJ 500 MG in SODIUM CHLORIDE 0.9% 250 ML 250 ML 250 MG IV (20:21)
[2025-03-20] MEDS: ATORVASTATIN CALCIUM 20 MG TABLET 40 MG PO (21:01)
--- NOTE | 2025-03-20 23:00 | PC.NURSE ---
pt sleeping since my arival at 1900. arouses easily and is cooperative and pleasant. Family member at bedside.
[2025-03-21] VITALS (21 sets, daily range): BP systolic 104–129; BP diastolic 57–84; PULSE 69–94; RESP 16–96; TEMP 35.9–37.2; O2SAT 90–97
--- NOTE | 2025-03-21 03:21 | PC.NURSE ---
continues to sleep . No changes. VS WNL.
[2025-03-21 05:36] LABS: Basophils % (Auto) 0 % (0-2.5); Eosinophils % (Auto) 0 % (0-10); Hematocrit 48.9 % (41.0-53.0); Hemoglobin 16.8 g/dL (13.5-16.0); Immature Granulocytes % (Auto) 1 % (0-0); Immature Granulocytes Auto 0.04 Thou/mm3 (0.00-0.00); Lymphocytes # (Auto) 0.9 Thou/mm3 (1.0-4.8); Lymphocytes % (Auto) 10 % (10-50); Mean Corpuscular HGB Conc 34.4 g/dl (31.0-37.0); Mean Corpuscular Hemoglobin 29.4 pg (25.0-35.0); Mean Corpuscular Volume 86 fL (80-100); Monocytes % (Auto) 12 % (0-12); Neutrophils # (Auto) 6.4 Thou/mm3 (1.8-7.7); Neutrophils % (Auto) 77 % (37-80); Nucleated Red Blood Cell % 0 /100 WBC (0); Platelet Count 225 Thou/mm3 (140-440); RDW Standard Deviation 41.9 fL (35.1-43.9); Red Blood Count 5.71 Miln/mm3 (4.50-5.90); White Blood Count 8.3 Thou/mm3 (3.8-10.6)
[2025-03-21 06:14] LABS: Anion Gap 7 (7-16); BUN/Creatinine Ratio 9 Ratio (12-20); Blood Urea Nitrogen 11 mg/dL (9-23); Calcium 8.8 mg/dL (8.3-10.6); Carbon Dioxide 29.6 mMol/L (20.0-31.0); Chloride 103 mMol/L (98-107); Creatinine (Component) 1.2 mg/dL (0.6-1.3); Estimated Creatinine Clearance 83.6 mL/min (>60); Glucose 100 mg/dL (74-106); Osmolality,Calculated 278 (275-295); Potassium 3.9 mMol/L (3.4-5.1); Sodium 140 mMol/L (136-145); eGFR > 60 See Note
[2025-03-21 06:15] LABS: Troponin I 0.453 ng/mL (0.0-0.045)
[2025-03-21] MEDS: Lisinopril 20 MG TABLET PO (09:21)
[2025-03-21] MEDS: AMIODARONE HCL 200 MG TABLET PO (09:21)
[2025-03-21] MEDS: TAMSULOSIN HCL 0.4 MG CAPSULE PO (09:21)
[2025-03-21] MEDS: ASPIRIN EC 81 MG TABEC PO (09:22)
[2025-03-21] MEDS: METHIMAZOLE 5 MG TABLET 20 MG PO (09:25)
[2025-03-21] MEDS: PANTOPRAZOLE 40 MG TABLET PO (09:25)
[2025-03-21] MEDS: METOPROLOL TARTRATE 25 MG TABLET 100 MG PO (09:26)
[2025-03-21] MEDS: cefTRIAXone/D5w 1gm IV premix 1 GM/50 ML BAG IV (09:30)
--- NOTE | 2025-03-21 10:13 | XR_ITS ---
Examination: CTA chest with intravenous contrast 2-D reconstructions 3-D reconstructions, vascular Date and time of exam: March 21, 2025 1040 hours INDICATIONS: Onset chest pain shortness of breath leg swelling beginning yesterday, positive for DVT and venous Doppler study March 07, 2025 CTDI: vol (mGy) 27.7 DLP: (mGycm) 40-65 Technique: Multiple axial sections of the thorax have been obtained. 3 mm slice thickness, from below the hemidiaphragms to above the apices of the lungs. Mediastinal and lung density settings have been obtained. 2-D sagittal and coronal reconstructions. 3-D angiographic renderings, 3-D volume renderings, 3D post processing, vascular maximum intensity projections obtained. Contrast administered is 100 cc Isovue-370. Low dose protocols were performed. One or more of the following dose reduction techniques were used; automated exposure control, adjustment of the mA and/or KV according to patient size, use of iterative reconstruction technique. Findings: Mild aneurysmal dilatation ascending thoracic aorta, AP dimension 4.2 cm Pulmonary artery segments are not enlarged No pulmonary artery filling defects Moderate vascular congestion. No lobar pneumonia No visualized liver or splenic lesion Contracted gallbladder No pancreatic or adrenal mass Impression: Mild aneurysmal dilatation ascending thoracic aorta, no thoracic aortic dissection Negative for pulmonary artery emboli Moderate vascular congestion No ketan pulmonary edema or pneumonia
[2025-03-21] MEDS: Furosemide 20 MG TABLET PO (10:18)
[2025-03-21] MEDS: RIVAROXABAN 10 MG TABLET 20 MG PO (10:19)
--- NOTE | 2025-03-21 11:17 | XR_ITS ---
Examination: Venous duplex lower extremity sonogram, bilateral. Date and time of exam: March 21, 2025 1302 hours INDICATIONS: Onset bilateral leg pain beginning 3 days ago Technique: Multiple sonographic images of the deep venous system have been obtained. B-mode/2-D grayscale imaging of vascular structures and Doppler spectral analysis (waveforms) and color performed Both legs are examined. Findings: Deep venous systems do not demonstrate abnormal echogenicity. All visualized deep veins exhibit compressibility. All visualized deep veins exhibit augmentation. Impression: Negative for deep vein thrombosis
--- NOTE | 2025-03-21 11:43 | PD.RESPRO ---
Documentation for date of: 03/21/25 Subjective Subjective Interval history: Patient seen today at the bedside found awake, alert, oriented x 3. States continued shortness of breath, however patient is able to talk in full sentences without shortness of breath. Vitals and labs reviewed. As patient has prior history DVT and PE as well as mutation and factor V Leiden and bilateral leg swelling ordered ultrasound of bilateral lower extremities and chest CTA for DVT/PE. Chest CTA negative for pulmonary embolus. Pending bilateral lower extremity ultrasound. Exam Vital Signs Temp Pulse Resp BP Pulse Ox O2 Del Method 98.6 F 85 19 129/84 95 Room Air 03/21/25 11:22 03/21/25 11:22 03/21/25 11:22 03/21/25 11:22 03/21/25 11:22 03/21/25 11:22 Narrative Exam Physical Exam GENERAL: NAD, AAOx3, obese HEENT: Moist mucosa. Eyes open, symmetrical, & clear CARDIO: Heart RRR, no obvious murmurs PULM: No noted coughing, +dyspnea CTA B/L, no R/W/R GI: Abdomen soft, nondistended, no pain on palpation. BSx4 SKIN/MSK/EXT: Bilateral lower extremity swelling, no pain on palpation. Pedal pulses present B/L NEURO: AAOx3, no focal neuro deficits, able to move all 4 extremities Objective Labs 03/21/25 05:04 03/21/25 05:04 Labs: Laboratory Results - last 24 hr 03/20/25 03/20/25 03/20/25 14:58 15:19 17:53 WBC 9.5 RBC 5.89 Hgb 17.1 H Hct 50.4 MCV 86 MCH 29.0 MCHC 33.9 RDW Std Deviation 41.0 Plt Count 198 Neut % (Auto) 86 H Lymph % (Auto) 5 L [place] % (Auto) 8 Eos % (Auto) 1 Baso % (Auto) 0 Neut # (Auto) 8.1 H Lymph # (Auto) 0.5 L [place] # (Auto) 0.8 Eos # (Auto) 0.1 Baso # (Auto) 0.0 Immature Gran # (Auto) 0.03 H Absolute Nucleated RBC 0.00 Immature Gran % 0 Nucleated RBC % 0 Sodium 140 Potassium 4.1 Chloride 106 Carbon Dioxide 25.4 Anion Gap 9 BUN 11 Creatinine 1.0 Estim Creat Clear Calc 100.3 eGFR > 60 BUN/Creatinine Ratio 11 L Glucose 99 Calculated Osmolality 278 Calcium 8.7 Corrected Calcium 8.7 Total Bilirubin 1.0 AST 21 ALT 19 Alkaline Phosphatase 198 H Troponin I 0.489 H* 0.488 H* B-Natriuretic Peptide 34 Total Protein 6.9 Albumin 4.1 Globulin 2.8 Albumin/Globulin Ratio 1.5 TSH < 0.01 L* Free T4 1.89 H Ur Collection Type Clean Catch Urine Color Lt-Yellow Urine Clarity Clear Urine pH 8.0 H Ur Specific [place] 1.023 Urine Protein Negative Urine Glucose (UA) Negative Urine Ketones Negative Urine Blood Negative Urine Nitrite Negative Urine Bilirubin Negative Urine Urobilinogen (Auto) Negative Ur Leukocyte Esterase Negative Urine RBC 4 H Urine WBC 1 Ur Squamous Epith Cells < 1 Urine Bacteria None 03/21/25 05:04 WBC 8.3 RBC 5.71 Hgb 16.8 H Hct 48.9 MCV 86 MCH 29.4 MCHC 34.4 RDW Std Deviation 41.9 Plt Count 225 Neut % (Auto) 77 Lymph % (Auto) 10 [place] % (Auto) 12 Eos % (Auto) 0 Baso % (Auto) 0 Neut # (Auto) 6.4 Lymph # (Auto) 0.9 L [place] # (Auto) 1.0 H Eos # (Auto) 0.0 Baso # (Auto) 0.0 Immature Gran # (Auto) 0.04 H Absolute Nucleated RBC 0.00 Immature Gran % 1 H Nucleated RBC % 0 Sodium 140 Potassium 3.9 Chloride 103 Carbon Dioxide 29.6 Anion Gap 7 BUN 11 Creatinine 1.2 Estim Creat Clear Calc 83.6 eGFR > 60 BUN/Creatinine Ratio 9 L Glucose 100 Calculated Osmolality 278 Calcium 8.8 Corrected Calcium Total Bilirubin AST ALT Alkaline Phosphatase Troponin I 0.453 H* B-Natriuretic Peptide Total Protein Albumin Globulin Albumin/Globulin Ratio TSH Free T4 Ur Collection Type Urine Color Urine Clarity Urine pH Ur Specific [place] Urine Protein Urine Glucose (UA) Urine Ketones Urine Blood Urine Nitrite Urine Bilirubin Urine Urobilinogen (Auto) Ur Leukocyte Esterase Urine RBC Urine WBC Ur Squamous Epith Cells Urine Bacteria Quality Measures Quality Measures none Assessment & Plan Assessment Current Active Medications: Generic Name Dose Route Start Last Admin Trade Name Freq PRN Reason Stop Dose Admin Acetaminophen 650 mg 03/20/25 19:18 Acetaminophen 325 Mg Tablet PO 04/19/25 19:17 Q6H PRN Fever >101.5 Amiodarone HCl 200 mg 03/21/25 09:00 03/21/25 09:21 Amiodarone Hcl 200 Mg Tablet PO 04/20/25 08:59 200 mg QDAY TUAN Administration Aspirin 81 mg 03/21/25 09:00 03/21/25 09:22 Aspirin Ec 81 Mg Tabec PO 04/20/25 08:59 81 mg QDAY TUAN Administration Atorvastatin Calcium 40 mg 03/20/25 21:00 03/20/25 21:01 Atorvastatin Calcium 20 Mg Tablet PO 04/19/25 20:59 40 mg HS TUAN Administration Dextrose 25 ml 03/20/25 19:19 Dextrose 50%-Water Inj 50 Ml Syringe IV 04/19/25 19:18 Q15MIN PRN BG 50-70 responsive npo pt Dextrose 50 ml 03/20/25 19:19 Dextrose 50%-Water Inj 50 Ml Syringe IV 04/19/25 19:18 Q15MIN PRN BG <50 OR BG <70 & pt unresponsive Furosemide 20 mg 03/21/25 09:00 03/21/25 10:18 Furosemide 20 Mg Tablet PO 04/20/25 08:59 20 mg QAM TUAN Administration Glucagon 1 mg 03/20/25 19:19 Glucagon Inj 1 Mg Vial IM Q15MIN PRN BG <70, and no IV access Azithromycin 500 mg/ Sodium 250 mls @ 250 mls/hr 03/20/25 19:21 Chloride IV 03/27/25 19:20 QDAY TUAN Ceftriaxone Sodium/Dextrose 1 gm in 50 mls @ 100 mls/hr 03/21/25 09:00 03/21/25 10:20 Rocephin/D5w 1gm Iv Premix IV 03/28/25 08:59 Infused QDAY TUAN Infusion Insulin Human Lispro 0 unit 03/21/25 07:30 03/21/25 07:35 Insulin Lispro (Admelog) 1 Unit/0.01 Ml Unit SC 04/20/25 07:29 Not Given AC [facility] Protocol Lisinopril 20 mg 03/21/25 09:00 03/21/25 09:21 Lisinopril 20 Mg Tablet PO 04/20/25 08:59 20 mg QDAY TUAN Administration Methimazole 20 mg 03/21/25 09:00 03/21/25 09:25 Methimazole 5 Mg Tablet PO 04/20/25 08:59 20 mg DAILY TUAN Administration Metoprolol Tartrate 100 mg 03/20/25 21:00 03/21/25 09:26 Metoprolol Tartrate 25 Mg Tablet PO 04/19/25 20:59 100 mg BID TUAN Administration Pantoprazole Sodium 40 mg 03/21/25 09:00 03/21/25 09:25 Pantoprazole 40 Mg Tablet PO 04/20/25 08:59 40 mg QDAY TUAN Administration Rivaroxaban 20 mg 03/21/25 09:00 03/21/25 10:19 Rivaroxaban 10 Mg Tablet PO 04/11/25 08:59 20 mg QDAY TUAN Administration Tamsulosin HCl 0.4 mg 03/21/25 09:00 03/21/25 09:21 Tamsulosin Hcl 0.4 Mg Capsule PO 04/20/25 08:59 0.4 mg QDAY TUAN Administration Plan 49-year-old male with past medical history of hypertension, diabetes, HFpEF (EF 55-60%), CAD, DVT and pulmonary embolism on Xarelto, status post IVC filter placement, factor V Leiden mutation, AYLEEN, BPH, hyperthyroidism who presented to the ED due to shortness of breath, chest pain, productive cough. Patient was admitted for pneumonia. #Community-acquired pneumonia #Pulmonary embolism/chronic thromboembolic disease-ruled out Patient presented with sudden onset of shortness of breath with vomiting, chills, chest pain cough with productive sputum. Chest x-ray shows right upper lobe infiltrate Patient also has history of pulmonary embolism/DVT and is on Xarelto, additionally patient has mutation and factor V Leiden. Wells score: 4.5 moderate risk for DVT PE Chest CTA was negative for pulmonary embolism Patient is at risk of clotting even on anticoagulation ? Oxygen supplementation ? On ceftriaxone and azithromycin (03/21/2025?) ? Follow-up cultures #Heart failure with preserved ejection fraction [EF 55-60%] ? Lasix 20 mg daily ? Resume antihypertensive as BP permits ? Avoid fluid overload ? Keep K>4, Mg>2 #History of thromboembolic disease/PE on anticoagulation Patient has history of DVT and pulmonary embolism, status post IVC filter, history of factor V Leiden takes Xarelto at home ? On Xarelto ? f/u US of bilateral LE #Diabetes mellitus ? SSI ? Hypoglycemia protocol in place #Elevated troponins Troponins already peaked no need to continue to trend #Hypertension #Coronary artery disease #Hyperlipidemia ? On amiodarone 200 mg daily ? On aspirin 81 mg ? Metoprolol tartrate 100 mg twice daily ? On lisinopril 20 mg daily ? On atorvastatin 40 mg at bedtime #BPH ? On tamsulosin 0.4 mg daily #Hyperthyroidism TSH less than 0.01, free T4 elevated At home patient takes methimazole ? Continue methimazole Disposition: tele Fluids: None Feeding: Cardiac diet Thrombo prophylaxis: Xarelto Gastric Ulcer prophylaxis: Pantoprazole CODE STATUS: Full code Case discussed with my attending Dr. Heriberto Joshi MD PGY-1 Attending Provider Attestation/Addendum I, Padmini Louis, , attest that I was physically present for the witt portions of the service and evaluated the patient with the resident and I reviewed and discussed the case with the resident and agree with the resident's findings and plans of care as documented above Patient seen eval this a.m. He reports having some chest discomfort and shortness of breath. Patient was brought to ED due to nausea and vomiting and shortness of breath. However, patient is able to speak full sentences without any breaks and is on room air. His bilateral lower extremities appear to be edematous which she states has been worsening. Chest x-ray does not seem significant for any pneumonia. Will continue with IV diuresis at this time. CTA was done to rule out any PE or failure of Xarelto. Patient states that he is compliant with his medications at home. Right calf is > than left calf, concerning for DVT. Will also obtain US of LE. Troponin seem to be plateaued at 0.45. Will also consult cardiology for further recommendations. Due to concern for interaction between azithromycin and amiodarone, will switch azithromycin to doxycyline.
[2025-03-21] MEDS: ATORVASTATIN CALCIUM 20 MG TABLET 40 MG PO (21:00)
[2025-03-21] MEDS: DOXYCYCLINE 100 MG TABLET PO (21:00)
[2025-03-21] MEDS: GABAPENTIN 300 MG CAPSULE PO (21:55)
[2025-03-22] VITALS (12 sets, daily range): BP systolic 108–134; BP diastolic 68–86; PULSE 65–88; RESP 14–25; TEMP 36–36.2; O2SAT 93–98; BMI 38.7
[2025-03-22 05:40] LABS: Basophils % (Auto) 1 % (0-2.5); Eosinophils # (Auto) 0.2 Thou/mm3 (0.0-0.5); Eosinophils % (Auto) 4 % (0-10); Hematocrit 51.7 % (41.0-53.0); Hemoglobin 17.1 g/dL (13.5-16.0); Immature Granulocytes % (Auto) 0 % (0-0); Immature Granulocytes Auto 0.02 Thou/mm3 (0.00-0.00); Lymphocytes # (Auto) 1.5 Thou/mm3 (1.0-4.8); Lymphocytes % (Auto) 28 % (10-50); Mean Corpuscular HGB Conc 33.1 g/dl (31.0-37.0); Mean Corpuscular Hemoglobin 29.2 pg (25.0-35.0); Mean Corpuscular Volume 88 fL (80-100); Monocytes # (Auto) 1.1 Thou/mm3 (0.0-0.8); Monocytes % (Auto) 21 % (0-12); Neutrophils # (Auto) 2.4 Thou/mm3 (1.8-7.7); Neutrophils % (Auto) 46 % (37-80); Nucleated Red Blood Cell % 0 /100 WBC (0); Platelet Count 197 Thou/mm3 (140-440); Red Blood Count 5.85 Miln/mm3 (4.50-5.90); White Blood Count 5.2 Thou/mm3 (3.8-10.6)
[2025-03-22] MEDS: GABAPENTIN 300 MG CAPSULE PO ×3 (05:41→21:16)
[2025-03-22 06:08] LABS: Alanine Aminotransferase 14 U/L (10-49); Albumin, Serum 3.8 gm/dL (3.5-5.0); Albumin/Globulin Ratio 1.4 (1.2-2.2); Alkaline Phosphatase 169 U/L (46-116); Anion Gap 10 (7-16); Aspartate Amino Transferase 18 U/L (0-34); BUN/Creatinine Ratio 10 Ratio (12-20); Bilirubin,Total 0.5 mg/dL (0.3-1.2); Blood Urea Nitrogen 11 mg/dL (9-23); Calcium 8.4 mg/dL (8.3-10.6); Calcium (Corrected) 8.6 mg/dL (8.5-10.1); Carbon Dioxide 22.9 mMol/L (20.0-31.0); Chloride 104 mMol/L (98-107); Creatinine (Component) 1.1 mg/dL (0.6-1.3); Estimated Creatinine Clearance 90.9 mL/min (>60); Globulin 2.7 gm/dL (2.3-3.5); Glucose 110 mg/dL (74-106); Magnesium 1.9 mg/dL (1.6-2.6); Osmolality,Calculated 274 (275-295); Phosphorous 3.7 mg/dL (2.4-5.1); Potassium 3.8 mMol/L (3.4-5.1); Sodium 137 mMol/L (136-145); Total Protein 6.5 gm/dL (5.7-8.2); eGFR > 60 See Note
[2025-03-22] MEDS: Magnesium Sulfate 4 GM Ivpb 4 GM/50 ML BAG IV (09:08)
[2025-03-22] MEDS: cefTRIAXone/D5w 1gm IV premix 1 GM/50 ML BAG IV (09:08)
[2025-03-22] MEDS: METHIMAZOLE 5 MG TABLET 20 MG PO (09:09)
[2025-03-22] MEDS: POTASSIUM CHLORIDE 20 mEq TABCR 40 MEQ PO (09:10)
[2025-03-22] MEDS: METOPROLOL TARTRATE 25 MG TABLET 100 MG PO ×2 (09:11→21:16)
[2025-03-22] MEDS: TAMSULOSIN HCL 0.4 MG CAPSULE PO (09:11)
[2025-03-22] MEDS: Lisinopril 20 MG TABLET PO (09:12)
[2025-03-22] MEDS: AMIODARONE HCL 200 MG TABLET PO (09:12)
[2025-03-22] MEDS: DOXYCYCLINE 100 MG TABLET PO ×2 (09:12→20:37)
[2025-03-22] MEDS: ASPIRIN EC 81 MG TABEC PO (09:13)
[2025-03-22] MEDS: FUROSEMIDE INJ 10 MG/ML 4ML VIAL 40 MG IVP (09:13)
[2025-03-22] MEDS: PANTOPRAZOLE 40 MG TABLET PO (09:13)
[2025-03-22] MEDS: RIVAROXABAN 10 MG TABLET 20 MG PO (09:13)
[2025-03-22] MEDS: DULoxetine HCL 30 MG CAPSULE PO (09:13)
--- NOTE | 2025-03-22 09:34 | PC.NURSE ---
During med pass, patient drank water too fast and vomitted. Dr Wheatley notified. Patient saturating at 98% on room air. Will continue to monitor.
--- NOTE | 2025-03-22 11:00 | XR_ITS ---
Examination: AP chest single view Technique: AP portable sitting chest single view Date and time: March 22, 2025, 1017 hrs. Comparison March 20, 2025 Indications: Choking coughing today. Findings: Mild prominence left ventricle. No aspiration pneumonia. The osseous structures are intact. Impression: No aspiration pneumonia
--- NOTE | 2025-03-22 11:35 | PD.RESPRO ---
Documentation for date of: 03/22/25 Subjective Subjective Interval history: Patient seen today at the bedside found awake, alert, orientedx3. No overnight events reported. Vitals and labs reviewed. Apparently during the morning patient had vomiting episode, chest x-ray was ordered to rule out any kind of aspiration which upon review shows no evidence of aspiration pneumonia at this time. Additionally patient's CTA chest and ultrasound of bilateral lower extremities were negative for DVT or pulmonary embolism. Patient does endorse shortness of breath about the same as on presentation we will continue current management with IV antibiotics. Spoke to cardiology, recommended starting the patient on heparin drip and will evaluate for possible right heart cath. Exam Vital Signs Temp Pulse Resp BP Pulse Ox O2 Del Method FiO2 96.9 F 72 14 122/78 98 BiPAP 21 03/22/25 08:00 03/22/25 09:13 03/22/25 08:00 03/22/25 09:13 03/22/25 08:00 03/22/25 08:00 03/22/25 08:00 Narrative Exam Physical Exam GENERAL: NAD, AAOx3, obese HEENT: Moist mucosa. Eyes open, symmetrical, & clear CARDIO: Heart RRR, no obvious murmurs PULM: No noted coughing, +dyspnea CTA B/L, no R/W/R GI: Abdomen soft, nondistended, no pain on palpation. BSx4 SKIN/MSK/EXT: Bilateral lower extremity swelling, no pain on palpation. Pedal pulses present B/L NEURO: AAOx3, no focal neuro deficits, able to move all 4 extremities Objective Labs 03/22/25 05:12 03/22/25 05:12 Labs: Laboratory Results - last 24 hr 03/22/25 05:12 WBC 5.2 RBC 5.85 Hgb 17.1 H Hct 51.7 MCV 88 MCH 29.2 MCHC 33.1 RDW Std Deviation 43.0 Plt Count 197 Neut % (Auto) 46 Lymph % (Auto) 28 [place] % (Auto) 21 H Eos % (Auto) 4 Baso % (Auto) 1 Neut # (Auto) 2.4 Lymph # (Auto) 1.5 [place] # (Auto) 1.1 H Eos # (Auto) 0.2 Baso # (Auto) 0.0 Immature Gran # (Auto) 0.02 H Absolute Nucleated RBC 0.00 Immature Gran % 0 Nucleated RBC % 0 Sodium 137 Potassium 3.8 Chloride 104 Carbon Dioxide 22.9 Anion Gap 10 BUN 11 Creatinine 1.1 Estim Creat Clear Calc 90.9 eGFR > 60 BUN/Creatinine Ratio 10 L Glucose 110 H Calculated Osmolality 274 L Calcium 8.4 Corrected Calcium 8.6 Phosphorus 3.7 Magnesium 1.9 Total Bilirubin 0.5 D AST 18 ALT 14 Alkaline Phosphatase 169 H D Total Protein 6.5 Albumin 3.8 Globulin 2.7 Albumin/Globulin Ratio 1.4 Quality Measures Quality Measures none Assessment & Plan Assessment Current Active Medications: Generic Name Dose Route Start Last Admin Trade Name Freq PRN Reason Stop Dose Admin Acetaminophen 650 mg 03/22/25 08:12 Acetaminophen 325 Mg Tablet PO 04/19/25 19:17 Q6H PRN Fever >101.5, pain 1-3 Amiodarone HCl 200 mg 03/21/25 09:00 03/22/25 09:12 Amiodarone Hcl 200 Mg Tablet PO 04/20/25 08:59 200 mg QDAY TUAN Administration Aspirin 81 mg 03/21/25 09:00 03/22/25 09:13 Aspirin Ec 81 Mg Tabec PO 04/20/25 08:59 81 mg QDAY TUAN Administration Atorvastatin Calcium 40 mg 03/20/25 21:00 03/21/25 21:00 Atorvastatin Calcium 20 Mg Tablet PO 04/19/25 20:59 40 mg HS TUAN Administration Dextrose 25 ml 03/20/25 19:19 Dextrose 50%-Water Inj 50 Ml Syringe IV 04/19/25 19:18 Q15MIN PRN BG 50-70 responsive npo pt Dextrose 50 ml 03/20/25 19:19 Dextrose 50%-Water Inj 50 Ml Syringe IV 04/19/25 19:18 Q15MIN PRN BG <50 OR BG <70 & pt unresponsive Doxycycline Hyclate 100 mg 03/21/25 21:00 03/22/25 09:12 Doxycycline 100 Mg Tablet PO 03/28/25 20:59 100 mg BID TUAN Administration Duloxetine HCl 30 mg 03/22/25 09:00 03/22/25 09:13 Duloxetine Hcl 30 Mg Capsule PO 04/21/25 08:59 30 mg QDAY TUAN Administration Furosemide 40 mg 03/22/25 09:00 03/22/25 09:13 Furosemide Inj 10 Mg/Ml 4ml Vial IVP 04/21/25 08:59 40 mg QDAY TUAN Administration Gabapentin 300 mg 03/21/25 22:00 03/22/25 05:41 Gabapentin 300 Mg Capsule PO 04/20/25 21:59 300 mg TID TUAN Administration Glucagon 1 mg 03/20/25 19:19 Glucagon Inj 1 Mg Vial IM Q15MIN PRN BG <70, and no IV access Ceftriaxone Sodium/Dextrose 1 gm in 50 mls @ 100 mls/hr 03/21/25 09:00 03/22/25 09:08 Rocephin/D5w 1gm Iv Premix IV 03/28/25 08:59 100 mls/hr QDAY TUAN Administration Magnesium Sulfate 4 gm in 50 mls @ 12.5 mls/hr 03/22/25 07:47 03/22/25 09:08 Magnesium Sulfate Ivpb IV 03/22/25 11:46 12.5 mls/hr X1 ONE Administration Insulin Human Lispro 0 unit 03/21/25 07:30 03/22/25 07:41 Insulin Lispro (Admelog) 1 Unit/0.01 Ml Unit SC 04/20/25 07:29 Not Given AC [facility] Protocol Lisinopril 20 mg 03/21/25 09:00 03/22/25 09:12 Lisinopril 20 Mg Tablet PO 04/20/25 08:59 20 mg QDAY TUAN Administration Methimazole 20 mg 03/21/25 09:00 03/22/25 09:09 Methimazole 5 Mg Tablet PO 04/20/25 08:59 20 mg DAILY TUAN Administration Metoprolol Tartrate 100 mg 03/20/25 21:00 03/22/25 09:11 Metoprolol Tartrate 25 Mg Tablet PO 04/19/25 20:59 100 mg BID TUAN Administration Pantoprazole Sodium 40 mg 03/21/25 09:00 03/22/25 09:13 Pantoprazole 40 Mg Tablet PO 04/20/25 08:59 40 mg QDAY TUAN Administration Rivaroxaban 20 mg 03/21/25 09:00 03/22/25 09:13 Rivaroxaban 10 Mg Tablet PO 04/11/25 08:59 20 mg QDAY TUAN Administration Ropinirole HCl 0.25 mg 03/22/25 21:00 Ropinirole Hcl 0.25 Mg Tablet PO 04/21/25 20:59 HS TUAN Tamsulosin HCl 0.4 mg 03/21/25 09:00 03/22/25 09:11 Tamsulosin Hcl 0.4 Mg Capsule PO 04/20/25 08:59 0.4 mg QDAY [facility] Administration Plan 49-year-old male with past medical history of hypertension, diabetes, HFpEF (EF 55-60%), CAD, DVT and pulmonary embolism on Xarelto, status post IVC filter placement, factor V Leiden mutation, AYLEEN, BPH, hyperthyroidism who presented to the ED due to shortness of breath, chest pain, productive cough. Patient was admitted for pneumonia. #Community-acquired pneumonia #Pulmonary embolism/chronic thromboembolic disease-ruled out Patient presented with sudden onset of shortness of breath with vomiting, chills, chest pain cough with productive sputum. Chest x-ray shows right upper lobe infiltrate Patient also has history of pulmonary embolism/DVT and is on Xarelto, additionally patient has mutation and factor V Leiden. Wells score: 4.5 moderate risk for DVT PE Chest CTA was negative for pulmonary embolism Patient is at risk of clotting even on anticoagulation Blood cultures negative in 24 hours ? Oxygen supplementation ? On ceftriaxone and azithromycin (03/21/2025?) ? Will start heparin drip ? Cardiology consulted, appreciate recommendations #Heart failure with preserved ejection fraction [EF 55-60%] Last echo 01/28/2025: LV size and function with EF 55-60%. Diastolic Dysfunction stage I RV size and function. Normal RVSP 25 mmhg. No RV strain Trace-Mild MR & MAC. trace TR ? Lasix 40 mg IV daily ? Resume antihypertensive as BP permits ? Avoid fluid overload ? strict Intake and output ? Keep K>4, Mg>2 #History of thromboembolic disease/PE on anticoagulation Patient has history of DVT and pulmonary embolism, status post IVC filter, history of factor V Leiden takes Xarelto at home Ultrasound bilateral lower extremities negative for DVT CTA of the chest negative for any acute pulmonary embolism. ? On Xarelto on hold ? Will start heparin drip ? Cardiology consulted, appreciate recommendations ? Ambulate with assistance around the room #Diabetes mellitus with neuropathy ? gabapentin 300mg TID resumed as taken at home ? SSI ? Hypoglycemia protocol in place #Elevated troponins Troponins already peaked no need to continue to trend #Hypertension #Coronary artery disease #Hyperlipidemia ? On amiodarone 200 mg daily ? On aspirin 81 mg ? Metoprolol tartrate 100 mg twice daily ? On lisinopril 20 mg daily ? On atorvastatin 40 mg at bedtime #BPH ? On tamsulosin 0.4 mg daily #Hyperthyroidism TSH less than 0.01, free T4 elevated At home patient takes methimazole ? Continue methimazole Disposition: tele Fluids: None Feeding: Cardiac diet Thrombo prophylaxis: Xarelto Gastric Ulcer prophylaxis: Pantoprazole CODE STATUS: Full code Case discussed with my attending Dr. Heriberto Joshi MD PGY-1 Attending Provider Attestation/Addendum Padmini Barbour DO, attest that I was physically present for the witt portions of the service and evaluated the patient with the resident and I reviewed and discussed the case with the resident and agree with the resident's findings and plans of care as documented above Patient seen and evaluated this AM. Patient states he has sharp pain on the bottom of his foot, preventing him from walking. He endorses having peripheral neuropathy. He also states he contineus to have some shortness of breath, but patient is able to speak fluently and without any breaks in sentence. Trace edema is resolved at this time. Cardiology consulted due to mildly elevated troponin and chest pains. US of B/L LE and CTA negative for any VTE. Recommended heparin drip. Will start patient on heparin drip this evening when next dose of xarelto is due and hold xarelto. Will continue with IV diuresis.
[2025-03-22 17:35] LABS: Partial Thromboplastin Time 34.5 Seconds (22.0-36.0)
[2025-03-22] MEDS: Heparin/D5w 25K 250 ML Ivpb 25,000 UNIT/250 ML BAG 10.56 UNIT IV (17:52)
[2025-03-22] MEDS: ATORVASTATIN CALCIUM 20 MG TABLET 40 MG PO (20:36)
[2025-03-22] MEDS: ACETAMINOPHEN 325 MG TABLET 650 MG PO (20:37)
[2025-03-22] MEDS: rOPINIRole HCL 0.25 MG TABLET PO (20:37)
[2025-03-22] MEDS: IBUPROFEN TAB 200 MG TABLET PO (22:56)
[2025-03-23] VITALS (10 sets, daily range): BP systolic 106–148; BP diastolic 58–91; PULSE 65–81; RESP 10–97; TEMP 35.9–36.7; O2SAT 95–99; BMI 38.7; BMI 39.3
[2025-03-23] MEDS: HEPARIN SOD INJ 5000 UNIT/ML VIAL 2000 UNIT IV (01:18)
[2025-03-23] MEDS: GABAPENTIN 300 MG CAPSULE PO ×3 (05:16→20:24)
[2025-03-23 08:08] LABS: Alanine Aminotransferase 17 U/L (10-49); Albumin, Serum 3.8 gm/dL (3.5-5.0); Albumin/Globulin Ratio 1.4 (1.2-2.2); Alkaline Phosphatase 172 U/L (46-116); Anion Gap 8 (7-16); Aspartate Amino Transferase 16 U/L (0-34); BUN/Creatinine Ratio 15 Ratio (12-20); Bilirubin,Total 0.4 mg/dL (0.3-1.2); Blood Urea Nitrogen 21 mg/dL (9-23); Calcium 8.7 mg/dL (8.3-10.6); Calcium (Corrected) 8.9 mg/dL (8.5-10.1); Carbon Dioxide 28.5 mMol/L (20.0-31.0); Chloride 102 mMol/L (98-107); Creatinine (Component) 1.4 mg/dL (0.6-1.3); Estimated Creatinine Clearance 71.4 mL/min (>60); Globulin 2.7 gm/dL (2.3-3.5); Glucose 108 mg/dL (74-106); Osmolality,Calculated 279 (275-295); Phosphorous 4.8 mg/dL (2.4-5.1); Sodium 138 mMol/L (136-145); Total Protein 6.5 gm/dL (5.7-8.2); eGFR > 60 See Note
[2025-03-23 08:09] LABS: Basophils % (Auto) 1 % (0-2.5); Eosinophils # (Auto) 0.2 Thou/mm3 (0.0-0.5); Eosinophils % (Auto) 4 % (0-10); Hematocrit 51.5 % (41.0-53.0); Hemoglobin 17.6 g/dL (13.5-16.0); Immature Granulocytes % (Auto) 1 % (0-0); Immature Granulocytes Auto 0.03 Thou/mm3 (0.00-0.00); Lymphocytes # (Auto) 1.4 Thou/mm3 (1.0-4.8); Lymphocytes % (Auto) 25 % (10-50); Mean Corpuscular HGB Conc 34.2 g/dl (31.0-37.0); Mean Corpuscular Hemoglobin 29.1 pg (25.0-35.0); Mean Corpuscular Volume 85 fL (80-100); Monocytes # (Auto) 0.9 Thou/mm3 (0.0-0.8); Monocytes % (Auto) 17 % (0-12); Neutrophils % (Auto) 53 % (37-80); Nucleated Red Blood Cell % 0 /100 WBC (0); Platelet Count 227 Thou/mm3 (140-440); RDW Standard Deviation 41.2 fL (35.1-43.9); Red Blood Count 6.05 Miln/mm3 (4.50-5.90); White Blood Count 5.6 Thou/mm3 (3.8-10.6)
[2025-03-23 08:36] LABS: Partial Thromboplastin Time 52.4 Seconds (22.0-36.0)
--- NOTE | 2025-03-23 10:13 | CHAP ---
Patient expressed gratitude for visit and prayer.
[2025-03-23] MEDS: SENNA TABLET 1 TAB PO (10:16)
[2025-03-23] MEDS: TAMSULOSIN HCL 0.4 MG CAPSULE PO (10:16)
[2025-03-23] MEDS: DULoxetine HCL 30 MG CAPSULE PO (10:16)
[2025-03-23] MEDS: METHIMAZOLE 5 MG TABLET 20 MG PO (10:16)
[2025-03-23] MEDS: DOXYCYCLINE 100 MG TABLET PO ×2 (10:17→20:24)
[2025-03-23] MEDS: AMIODARONE HCL 200 MG TABLET PO (10:17)
[2025-03-23] MEDS: ASPIRIN EC 81 MG TABEC PO (10:17)
[2025-03-23] MEDS: PANTOPRAZOLE 40 MG TABLET PO (10:17)
[2025-03-23] MEDS: METOPROLOL TARTRATE 25 MG TABLET 100 MG PO ×2 (10:17→20:24)
[2025-03-23] MEDS: SODIUM CHLORIDE 0.9% 500 ML 500 ML 100 ML IV (10:18)
[2025-03-23] MEDS: cefTRIAXone/D5w 1gm IV premix 1 GM/50 ML BAG IV (10:18)
--- NOTE | 2025-03-23 11:12 | PD.RESPRO ---
Documentation for date of: 03/23/25 Subjective Subjective Interval history: 03/23/2025: Overnight patient continued to have neuropathic lower extremity pain; night team started the patient on ibuprofen along with the ropinirole and gabapentin home medications which did slightly improve symptoms. Patient seen examined in hospital bed reporting persistent shortness of breath although he is on room air saturating 96%. Cardiology consulted like to potentially do a right heart cath for the patient; moreover, will continue to treat community-acquired pneumonia with IV antibiotics. Patient CT angiogram and ultrasound Doppler negative for any signs of PE or DVT. Will continue to monitor the patient for any acute changes. Exam Vital Signs Temp Pulse Resp BP Pulse Ox O2 Del Method FiO2 97.3 F 81 14 127/83 95 Room Air 21 03/23/25 08:00 03/23/25 10:17 03/23/25 08:00 03/23/25 10:17 03/23/25 08:00 03/23/25 08:00 03/23/25 00:15 Narrative Exam Physical Exam GENERAL: NAD, AAOx3, obese HEENT: Moist mucosa. Eyes open, symmetrical, & clear CARDIO: Heart RRR, no obvious murmurs PULM: No noted coughing, +dyspnea CTA B/L, no R/W/R GI: Abdomen soft, nondistended, no pain on palpation. BSx4 SKIN/MSK/EXT: Bilateral lower extremity swelling, no pain on palpation. Pedal pulses present B/L NEURO: AAOx3, no focal neuro deficits, able to move all 4 extremities Objective Labs 03/24/25 05:45 03/24/25 05:45 Labs: Laboratory Results - last 24 hr 03/22/25 03/23/25 03/23/25 16:03 00:10 07:25 WBC 5.6 RBC 6.05 H Hgb 17.6 H* Hct 51.5 MCV 85 MCH 29.1 MCHC 34.2 RDW Std Deviation 41.2 Plt Count 227 D Neut % (Auto) 53 Lymph % (Auto) 25 [place] % (Auto) 17 H Eos % (Auto) 4 Baso % (Auto) 1 Neut # (Auto) 3.0 Lymph # (Auto) 1.4 [place] # (Auto) 0.9 H Eos # (Auto) 0.2 Baso # (Auto) 0.0 Immature Gran # (Auto) 0.03 H Absolute Nucleated RBC 0.00 Immature Gran % 1 H Nucleated RBC % 0 APTT 34.5 38.0 H 52.4 H D Sodium 138 Potassium 4.0 Chloride 102 Carbon Dioxide 28.5 Anion Gap 8 BUN 21 Creatinine 1.4 H Estim Creat Clear Calc 71.4 eGFR > 60 BUN/Creatinine Ratio 15 Glucose 108 H Calculated Osmolality 279 Calcium 8.7 Corrected Calcium 8.9 Phosphorus 4.8 Magnesium 2.0 Total Bilirubin 0.4 AST 16 ALT 17 Alkaline Phosphatase 172 H Total Protein 6.5 Albumin 3.8 Globulin 2.7 Albumin/Globulin Ratio 1.4 Quality Measures Quality Measures none Assessment & Plan Assessment Current Active Medications: Generic Name Dose Route Start Last Admin Trade Name Freq PRN Reason Stop Dose Admin Acetaminophen 650 mg 03/22/25 08:12 03/22/25 20:37 Acetaminophen 325 Mg Tablet PO 04/19/25 19:17 650 mg Q6H PRN Administration Fever >101.5, pain 1-3 Amiodarone HCl 200 mg 03/21/25 09:00 03/23/25 10:17 Amiodarone Hcl 200 Mg Tablet PO 04/20/25 08:59 200 mg QDAY TUAN Administration Aspirin 81 mg 03/21/25 09:00 03/23/25 10:17 Aspirin Ec 81 Mg Tabec PO 04/20/25 08:59 81 mg QDAY TUAN Administration Atorvastatin Calcium 40 mg 03/20/25 21:00 03/22/25 20:36 Atorvastatin Calcium 20 Mg Tablet PO 04/19/25 20:59 40 mg HS TUAN Administration Dextrose 25 ml 03/20/25 19:19 Dextrose 50%-Water Inj 50 Ml Syringe IV 04/19/25 19:18 Q15MIN PRN BG 50-70 responsive npo pt Dextrose 50 ml 03/20/25 19:19 Dextrose 50%-Water Inj 50 Ml Syringe IV 04/19/25 19:18 Q15MIN PRN BG <50 OR BG <70 & pt unresponsive Doxycycline Hyclate 100 mg 03/21/25 21:00 03/23/25 10:17 Doxycycline 100 Mg Tablet PO 03/28/25 20:59 100 mg BID TUAN Administration Duloxetine HCl 30 mg 03/22/25 09:00 03/23/25 10:16 Duloxetine Hcl 30 Mg Capsule PO 04/21/25 08:59 30 mg QDAY TUAN Administration Gabapentin 300 mg 03/21/25 22:00 03/23/25 05:16 Gabapentin 300 Mg Capsule PO 04/20/25 21:59 300 mg TID TUAN Administration Glucagon 1 mg 03/20/25 19:19 Glucagon Inj 1 Mg Vial IM Q15MIN PRN BG <70, and no IV access Ceftriaxone Sodium/Dextrose 1 gm in 50 mls @ 100 mls/hr 03/21/25 09:00 03/23/25 10:18 Rocephin/D5w 1gm Iv Premix IV 03/28/25 08:59 100 mls/hr QDAY TUAN Administration Heparin Sodium/Dextrose 25,000 unit in 250 mls @ 10.56 mls/hr 03/22/25 18:00 03/23/25 01:18 Heparin In D5w Ivpb IV 04/05/25 17:59 12 units/kg/hr .[id number] TUAN 12.672 mls/hr Titration Protocol 10 UNITS/KG/HR Sodium Chloride 500 mls @ 100 mls/hr 03/23/25 09:49 03/23/25 10:18 Ns IV 03/23/25 14:48 100 mls/hr .Q5H ONE Administration Insulin Human Lispro 0 unit 03/21/25 07:30 03/23/25 10:00 Insulin Lispro (Admelog) 1 Unit/0.01 Ml Unit SC 04/20/25 07:29 Not Given AC [facility] Protocol Lisinopril 20 mg 03/21/25 09:00 03/23/25 10:18 Lisinopril 20 Mg Tablet PO 04/20/25 08:59 Not Given QDAY TUAN Methimazole 20 mg 03/21/25 09:00 03/23/25 10:16 Methimazole 5 Mg Tablet PO 04/20/25 08:59 20 mg DAILY TUAN Administration Metoprolol Tartrate 100 mg 03/20/25 21:00 03/23/25 10:17 Metoprolol Tartrate 25 Mg Tablet PO 04/19/25 20:59 100 mg BID TUAN Administration Pantoprazole Sodium 40 mg 03/21/25 09:00 03/23/25 10:17 Pantoprazole 40 Mg Tablet PO 04/20/25 08:59 40 mg QDAY TUAN Administration Rivaroxaban 20 mg 03/21/25 09:00 03/22/25 09:13 Rivaroxaban 10 Mg Tablet PO 04/11/25 08:59 20 mg QDAY TUAN Administration Ropinirole HCl 0.25 mg 03/22/25 21:00 03/22/25 20:37 Ropinirole Hcl 0.25 Mg Tablet PO 04/21/25 20:59 0.25 mg HS TUAN Administration Sennosides 1 tab 03/23/25 09:00 03/23/25 10:16 Senna Tablet PO 04/22/25 08:59 1 tab QDAY TAUN Administration Protocol Tamsulosin HCl 0.4 mg 03/21/25 09:00 03/23/25 10:16 Tamsulosin Hcl 0.4 Mg Capsule PO 04/20/25 08:59 0.4 mg QDAY TUAN Administration Zolpidem Tartrate 5 mg 03/23/25 11:02 Zolpidem 5 Mg Tablet PO 04/22/25 11:01 HS PRN INSOMNIA Plan 49-year-old male with past medical history of hypertension, diabetes, HFpEF (EF 55-60%), CAD, DVT and pulmonary embolism on Xarelto, status post IVC filter placement, factor V Leiden mutation, AYLEEN, BPH, hyperthyroidism who presented to the ED due to shortness of breath, chest pain, productive cough. Patient was admitted for pneumonia. #Community-acquired pneumonia #Pulmonary embolism/chronic thromboembolic disease-ruled out Patient presented with sudden onset of shortness of breath with vomiting, chills, chest pain cough with productive sputum. Chest x-ray shows right upper lobe infiltrate Patient also has history of pulmonary embolism/DVT and is on Xarelto, additionally patient has mutation and factor V Leiden. Wells score: 4.5 moderate risk for DVT PE Chest CTA was negative for pulmonary embolism Patient is at risk of clotting even on anticoagulation Blood cultures negative in 48 hours Plan: Oxygen supplementation On ceftriaxone and azithromycin (03/21/2025?) Cardiology consulted, appreciate recommendations #Heart failure with preserved ejection fraction [EF 55-60%] Last echo 01/28/2025: LV size and function with EF 55-60%. Diastolic Dysfunction stage I RV size and function. Normal RVSP 25 mmhg. No RV strain Trace-Mild MR & MAC. trace TR Plan: Resume antihypertensive as BP permits Avoid fluid overload strict Intake and output Keep K>4, Mg>2 #History of thromboembolic disease/PE on anticoagulation Patient has history of DVT and pulmonary embolism, status post IVC filter, history of factor V Leiden takes Xarelto at home Ultrasound bilateral lower extremities negative for DVT CTA of the chest negative for any acute pulmonary embolism. Plan: Cardiology planning right heart cath Cardiology consulted, appreciate recommendations On Xarelto on hold Continue heparin drip Ambulate with assistance around the room #Diabetes mellitus with neuropathy Continue gabapentin 300mg TID resumed as taken at home Ropinirole 0.25 mg p.o. at bedtime SSI Hypoglycemia protocol in place #Elevated troponins Troponins already peaked no need to continue to trend #Hypertension #Coronary artery disease #Hyperlipidemia On amiodarone 200 mg daily On aspirin 81 mg Metoprolol tartrate 100 mg twice daily On lisinopril 20 mg daily On atorvastatin 40 mg at bedtime #BPH On tamsulosin 0.4 mg daily Plan: Continue home medication #Hyperthyroidism TSH less than 0.01, free T4 elevated At home patient takes methimazole Plan: Continue methimazole Hospital Management: Disposition: tele Fluids: None Feeding: Cardiac diet Thrombo prophylaxis: Xarelto Gastric Ulcer prophylaxis: Pantoprazole CODE STATUS: Full code Patient seen and examined with attending Dr. Heriberto Wheatley, PGY-1 Attending Provider Attestation/Addendum Padmini Barbour, , attest that I was physically present for the witt portions of the service and evaluated the patient with the resident and I reviewed and discussed the case with the resident and agree with the resident's findings and plans of care as documented above Patient seen and evaluated this AM. No acute events overnight. Patient states that he is still a little short of breath. However, patient is able to speak full sentences. Plan for cardiac cath per cardiology tomorrow. Will hold off on diuresis at this time due to PRIMO. No peripheral edema noted. Lungs are clear to auscultation b/l
[2025-03-23 14:43] LABS: Cocci Serology, IgM Negative (Negative)
[2025-03-23] MEDS: Heparin/D5w 25K 250 ML Ivpb 25,000 UNIT/250 ML BAG 12.672 UNIT IV (16:09)
[2025-03-23 16:14] LABS: Partial Thromboplastin Time 46.1 Seconds (22.0-36.0)
[2025-03-23] MEDS: HEPARIN SOD INJ 5000 UNIT/ML VIAL 2000 UNIT IVP (16:50)
--- NOTE | 2025-03-23 18:00 | PD.RESPRO ---
Documentation for date of: 03/23/25 Exam Vital Signs Temp Pulse Resp BP Pulse Ox O2 Del Method FiO2 97.1 F 80 18 130/91 H 98 Room Air 21 03/23/25 12:00 03/23/25 12:00 03/23/25 12:00 03/23/25 12:00 03/23/25 12:00 03/23/25 12:00 03/23/25 00:15 Objective Labs 03/23/25 07:25 03/23/25 07:25 Labs: Laboratory Results - last 24 hr 03/23/25 03/23/25 03/23/25 00:10 05:00 07:25 WBC 5.6 RBC 6.05 H Hgb 17.6 H* Hct 51.5 MCV 85 MCH 29.1 MCHC 34.2 RDW Std Deviation 41.2 Plt Count 227 D Neut % (Auto) 53 Lymph % (Auto) 25 [place] % (Auto) 17 H Eos % (Auto) 4 Baso % (Auto) 1 Neut # (Auto) 3.0 Lymph # (Auto) 1.4 [place] # (Auto) 0.9 H Eos # (Auto) 0.2 Baso # (Auto) 0.0 Immature Gran # (Auto) 0.03 H Absolute Nucleated RBC 0.00 Immature Gran % 1 H Nucleated RBC % 0 APTT 38.0 H 52.4 H D Sodium 138 Potassium 4.0 Chloride 102 Carbon Dioxide 28.5 Anion Gap 8 BUN 21 Creatinine 1.4 H Estim Creat Clear Calc 71.4 eGFR > 60 BUN/Creatinine Ratio 15 Glucose 108 H Calculated Osmolality 279 Calcium 8.7 Corrected Calcium 8.9 Phosphorus 4.8 Magnesium 2.0 Total Bilirubin 0.4 AST 16 ALT 17 Alkaline Phosphatase 172 H Total Protein 6.5 Albumin 3.8 Globulin 2.7 Albumin/Globulin Ratio 1.4 Coccidioides IgM Ab Negative 03/23/25 15:42 WBC RBC Hgb Hct MCV MCH MCHC RDW Std Deviation Plt Count Neut % (Auto) Lymph % (Auto) [place] % (Auto) Eos % (Auto) Baso % (Auto) Neut # (Auto) Lymph # (Auto) Story # (Auto) Eos # (Auto) Baso # (Auto) Immature Gran # (Auto) Absolute Nucleated RBC Immature Gran % Nucleated RBC % APTT 46.1 H Sodium Potassium Chloride Carbon Dioxide Anion Gap BUN Creatinine Estim Creat Clear Calc eGFR BUN/Creatinine Ratio Glucose Calculated Osmolality Calcium Corrected Calcium Phosphorus Magnesium Total Bilirubin AST ALT Alkaline Phosphatase Total Protein Albumin Globulin Albumin/Globulin Ratio Coccidioides IgM Ab Quality Measures Quality Measures none Assessment & Plan Assessment Current Active Medications: Generic Name Dose Route Start Last Admin Trade Name [place] PRN Reason Stop Dose Admin Acetaminophen 650 mg 03/22/25 08:12 03/22/25 20:37 Acetaminophen 325 Mg Tablet PO 04/19/25 19:17 650 mg Q6H PRN Administration Fever >101.5, pain 1-3 Amiodarone HCl 200 mg 03/21/25 09:00 03/23/25 10:17 Amiodarone Hcl 200 Mg Tablet PO 04/20/25 08:59 200 mg QDAY TUAN Administration Aspirin 81 mg 03/21/25 09:00 03/23/25 10:17 Aspirin Ec 81 Mg Tabec PO 04/20/25 08:59 81 mg QDAY TUAN Administration Atorvastatin Calcium 40 mg 03/20/25 21:00 03/22/25 20:36 Atorvastatin Calcium 20 Mg Tablet PO 04/19/25 20:59 40 mg HS TUAN Administration Dextrose 25 ml 03/20/25 19:19 Dextrose 50%-Water Inj 50 Ml Syringe IV 04/19/25 19:18 Q15MIN PRN BG 50-70 responsive npo pt Dextrose 50 ml 03/20/25 19:19 Dextrose 50%-Water Inj 50 Ml Syringe IV 04/19/25 19:18 Q15MIN PRN BG <50 OR BG <70 & pt unresponsive Doxycycline Hyclate 100 mg 03/21/25 21:00 03/23/25 10:17 Doxycycline 100 Mg Tablet PO 03/28/25 20:59 100 mg BID TUAN Administration Duloxetine HCl 30 mg 03/22/25 09:00 03/23/25 10:16 Duloxetine Hcl 30 Mg Capsule PO 04/21/25 08:59 30 mg QDAY TUAN Administration Gabapentin 300 mg 03/21/25 22:00 03/23/25 14:12 Gabapentin 300 Mg Capsule PO 04/20/25 21:59 300 mg TID TUAN Administration Glucagon 1 mg 03/20/25 19:19 Glucagon Inj 1 Mg Vial IM Q15MIN PRN BG <70, and no IV access Ceftriaxone Sodium/Dextrose 1 gm in 50 mls @ 100 mls/hr 03/21/25 09:00 03/23/25 10:18 Rocephin/D5w 1gm Iv Premix IV 03/28/25 08:59 100 mls/hr QDAY TUAN Administration Heparin Sodium/Dextrose 25,000 unit in 250 mls @ 10.56 mls/hr 03/22/25 18:00 03/23/25 16:50 Heparin In D5w Ivpb IV 04/05/25 17:59 14 units/kg/hr .[id number] TUAN 14.783 mls/hr Titration Protocol 10 UNITS/KG/HR Insulin Human Lispro 0 unit 03/21/25 07:30 03/23/25 16:54 Insulin Lispro (Admelog) 1 Unit/0.01 Ml Unit SC 04/20/25 07:29 Not Given AC TUAN Protocol Lisinopril 20 mg 03/21/25 09:00 03/23/25 10:18 Lisinopril 20 Mg Tablet PO 04/20/25 08:59 Not Given QDAY TUAN Methimazole 20 mg 03/21/25 09:00 03/23/25 10:16 Methimazole 5 Mg Tablet PO 04/20/25 08:59 20 mg DAILY TUAN Administration Metoprolol Tartrate 100 mg 03/20/25 21:00 03/23/25 10:17 Metoprolol Tartrate 25 Mg Tablet PO 04/19/25 20:59 100 mg BID TUAN Administration Pantoprazole Sodium 40 mg 03/21/25 09:00 03/23/25 10:17 Pantoprazole 40 Mg Tablet PO 04/20/25 08:59 40 mg QDAY TUAN Administration Ropinirole HCl 0.25 mg 03/22/25 21:00 03/22/25 20:37 Ropinirole Hcl 0.25 Mg Tablet PO 04/21/25 20:59 0.25 mg HS TUAN Administration Sennosides 1 tab 03/23/25 09:00 03/23/25 10:16 Senna Tablet PO 04/22/25 08:59 1 tab QDAY TUAN Administration Protocol Tamsulosin HCl 0.4 mg 03/21/25 09:00 03/23/25 10:16 Tamsulosin Hcl 0.4 Mg Capsule PO 04/20/25 08:59 0.4 mg QDAY TUAN Administration Zolpidem Tartrate 5 mg 03/23/25 11:02 Zolpidem 5 Mg Tablet PO 04/22/25 11:01 HS PRN INSOMNIA
--- NOTE | 2025-03-23 18:01 | PD.RESCONSUL ---
HPI Data of Consult Requesting Physician: Padmini Louis DO Admitting Provider: Damon Orozco MD Attending Provider: Padmini Louis DO Primary Care Provider: Physician No Primary/Family Consult Narrative History of present illness: This is a 49-year-old male with PMHx of HTN, HFpEF EF 55-60%, CAD, DVT and PE on XARELTO, s/p IVC filter placement, factor B Leiden mutation, DM, AYLEEN, BPH, hypothyroidism presented to ED with acute episode SOB that started the morning of admission. Reports episodes of vomiting, chills, chest pain, chronic cough with sputum ongoing for last couple weeks. Also admits to bilateral lower extremity swelling that is chronic. Also reports worsening generalized fatigue, and decreased appetite. Denies fever, chills, headaches, chest pain, GI or urinary symptoms. He has multiple hospital admissions for LE sweeling. On 01/11/2025 found to have occlusive DVT right superficial femoral vein, nonocclusive DVT. right popliteal peroneal veins. He was seen in ED on 01/23/2025 for LE edema and found to have partial occlusion, thrombus in the right distal femoral and aortic tibial veins. On 01/27/2025 found to havesmall pulmonary artery emboli in right lower lobe pulmonary artery branches. On 03/07/2025. He was found to have bilateral partial DVT in the mid right superficial femoral vein and right popliteal vein, as well as the left popliteal vein and left posterior tibial vein. He follows Dr. Alarcon outpatient and has been on XARALATO and report compliance with meds. He saw Dr. Alarcon last week and currently planning to switch to WARFARIN given poorly controlled thromboembolic disease. On ED presentation Afebrile, BP 159/88, HR 88, RR 18, satting 96% on room air. He had a troponin that peaked at 0.489 on admission. BNP was 34, ALP 198. Remainder CHEM panel WNL. CBC showed Hgb 17.1, PLT 198, no leukocytosis. UA was slightly alkalotic with pH 8.0, RBCs 4, negative for UTI. EKG was sinus rhythm but showed T wave abnormality in multiple leads. CTA was done during this admission and was negative for pulmonary embolism. CTA showed mild arrhythmic dilation of the ascending aorta (also seen on previous imaging, no significant enlargement), moderate vascular congestion, no pneumonia or pulmonary edema. Venous Doppler ultrasound was negative for DVT bilaterally. CXR early right upper lobe pneumonia. Subsequently admitted for acute ischemic respiratory failure secondary to pneumonia. Continued on ANTIBIOTICS, showing slight improvements, currently satting well on room air. MRSA screen negative, 48-hour blood culture negative. XARELTO was held, currently on weight-based HEPARIN. 03/23/2025 Vitals stable, HR 69, BP 128/86, satting 96% on room air. CBC showed Hgb 17.6, RBC 6.05, PLT 227, no leukocytosis. Panel showing new PRIMO with CR 1.4, BUN 21, ALP 172, remainder CHEM panel WNL. Given the negative workup for acute PE and DVT, the likely source of hypoxemia is pneumonia. Recommended continuing treating pneumonia. NPO midnight for cardiac cath. Recommended Heme-onc consult. cc:: cc: Padmini Louis DO Past Medical History Family History OTHER FAMILY HX: Mother , no known history. Father alive, history of multiple clots. Surgical History OTHER SURGICAL HX: IVC filter placed in the left leg in 2023 Social History SOCIAL: Currently unemployed. Lives with a roommate who was present during history taking. Denies any smoking, drinking, drug use. Exam Vital Signs Temp Pulse Resp BP Pulse Ox O2 Del Method FiO2 97.1 F 80 18 130/91 H 98 Room Air 21 03/23/25 12:03/23/25 12:03/23/25 12:03/23/25 12:03/23/25 12:03/23/25 12:03/23/25 00:15 Narrative Exam GENERAL Normal appearing adult male, NAD HEENT NCAT.?JACQUE. Oral mucosa is moist. Patent Nares NECK Supple, nontender, no thyromegaly, no meningismus, no JVD, no step offs CHEST RRR, no m/g/r CTAB, no w/r/r. Symmetrical chest rise. No intercostal subcostal retraction Atraumatic, nontender, no crepitus, symmetrical expansion. ABDOMEN Soft, flat, nontender. No guarding/rebound tenderness/masses. Bowel sounds presents EXTREMITIES No edema/cyanosis.? SKIN Warm and dry, no jaundice/rashes. NEUROMUSCULAR No lumbar or midline, no CVA, no paraspinal muscle spasm or tenderness. Moves all 4 extremities well, with full ROM and good CSM. ESTRELLA x4, CN II-XII grossly intact. No focal neurologic deficits. PSYCHIATRY Normal mood and affect, cooperative, no SI or HI or hallucinations. Results Labs 03/23/25 07:25 03/23/25 07:25 Labs: Short CBC 03/23/25 Range/Units 07:25 WBC 5.6 (3.8-10.6) Thou/mm3 Hgb 17.6 H* (13.5-16.0) g/dL Hct 51.5 (41.0-53.0) % Plt Count 227 D (140-440) Thou/mm3 BMP 03/23/25 07:25 Sodium 138 Potassium 4.0 Chloride 102 Carbon Dioxide 28.5 BUN 21 Creatinine 1.4 H Glucose 108 H Calcium 8.7 Liver Function 03/23/25 Range/Units 07:25 Total Bilirubin 0.4 (0.3-1.2) mg/dL AST 16 (0-34) U/L ALT 17 (10-49) U/L Alkaline Phosphatase 172 H (46-116) U/L Albumin 3.8 (3.5-5.0) gm/dL Quality Measures Quality Measures none Medications Home Medications and Allergies Home Medications ?Medication ?Instructions ?Recorded ?Confirmed ?Type lisinopril 20 mg tablet 20 mg PO BID #0 tabs 08/22/17 03/21/25 History metoprolol tartrate 100 mg tablet 100 mg PO BID 03/14/21 03/21/25 History metformin 500 mg tablet 500 mg PO HS 06/28/21 03/21/25 History ropinirole 0.25 mg tablet 0.25 mg PO HS 10/03/21 03/21/25 History amiodarone 200 mg tablet 200 mg PO QDAY 04/05/22 03/21/25 History atorvastatin 40 mg tablet 40 mg PO HS 09/04/22 03/21/25 History meclizine 25 mg tablet 25 mg PO BID PRN Dizziness 09/04/22 03/21/25 History duloxetine 30 mg capsule,delayed 30 mg PO QDAY 10/24/23 03/21/25 History release finasteride 5 mg tablet 5 mg PO QDAY 10/24/23 03/21/25 History furosemide 20 mg tablet 20 mg PO QDAY 10/24/23 03/21/25 History semaglutide 1 mg/dose (4 mg/3 mL) 1.75 mg subcut QWEEK 10/24/23 03/21/25 History subcutaneous pen injector (Ozempic) gabapentin 300 mg capsule 300 mg PO TID 08/07/24 03/21/25 History albuterol sulfate 90 mcg/actuation 2 puff inhalation Q4H PRN 01/07/25 03/21/25 History aerosol inhaler shortness of breath or wheezing allopurinol 100 mg tablet 200 mg PO DAILY 01/07/25 03/21/25 History benzonatate 100 mg capsule 200 mg PO TID PRN cough 01/07/25 03/21/25 History loratadine 10 mg tablet (Claritin) 10 mg PO QDAY PRN allergic symptoms 01/07/25 03/21/25 History multivitamin (Daily Multi-Vitamin 1 tab PO QAM 01/07/25 03/21/25 History tablet) ondansetron HCl 4 mg tablet 4 mg PO TID PRN nausea and vomiting 01/07/25 03/21/25 History Allergies Allergy/AdvReac Type Severity Reaction Status Date / Time No Known Allergies Allergy Verified 01/22/25 16:29 Visit Medications Acetaminophen (Acetaminophen 325 Mg Tablet) 650 mg PO Q6H PRN PRN Reason: Fever >101.5, pain 1-3 Stop: 04/19/25 19:17 Last Admin: 03/22/25 20:37 Dose: 650 mg Amiodarone HCl (Amiodarone Hcl 200 Mg Tablet) 200 mg PO QDAY [facility] Stop: 04/20/25 08:59 Last Admin: 03/23/25 10:17 Dose: 200 mg Aspirin (Aspirin Ec 81 Mg Tabec) 81 mg PO QDAY [facility] Stop: 04/20/25 08:59 Last Admin: 03/23/25 10:17 Dose: 81 mg Atorvastatin Calcium (Atorvastatin Calcium 20 Mg Tablet) 40 mg PO [facility] Stop: 04/19/25 20:59 Last Admin: 03/22/25 20:36 Dose: 40 mg Dextrose (Dextrose 50%-Water Inj 50 Ml Syringe) 25 ml IV Q15MIN PRN PRN Reason: BG 50-70 responsive npo pt Stop: 04/19/25 19:18 Dextrose (Dextrose 50%-Water Inj 50 Ml Syringe) 50 ml IV Q15MIN PRN PRN Reason: BG <50 OR BG <70 & pt unresponsive Stop: 04/19/25 19:18 Doxycycline Hyclate (Doxycycline 100 Mg Tablet) 100 mg PO BID [facility] Stop: 03/28/25 20:59 Last Admin: 03/23/25 10:17 Dose: 100 mg Duloxetine HCl (Duloxetine Hcl 30 Mg Capsule) 30 mg PO QDAY [facility] Stop: 04/21/25 08:59 Last Admin: 03/23/25 10:16 Dose: 30 mg Gabapentin (Gabapentin 300 Mg Capsule) 300 mg PO TID [facility] Stop: 04/20/25 21:59 Last Admin: 03/23/25 14:12 Dose: 300 mg Glucagon (Glucagon Inj 1 Mg Vial) 1 mg IM Q15MIN PRN PRN Reason: BG <70, and no IV access Ceftriaxone Sodium/Dextrose (Rocephin/D5w 1gm Iv Premix) 1 gm in 50 mls @ 100 mls/hr IV QDAY [facility] Stop: 03/28/25 08:59 Last Admin: 03/23/25 10:18 Dose: 100 mls/hr Heparin Sodium/Dextrose (Heparin In D5w Ivpb) 25,000 unit in 250 mls @ 10.56 mls/hr IV .[id number] [facility]; Protocol Stop: 04/05/25 17:59 Last Titration: 03/23/25 16:50 Dose: 14 units/kg/hr, 14.783 mls/hr Insulin Human Lispro (Insulin Lispro (Admelog) 1 Unit/0.01 Ml Unit) 0 unit SC AC [facility]; Protocol Stop: 04/20/25 07:29 Last Admin: 03/23/25 16:54 Dose: Not Given Lisinopril (Lisinopril 20 Mg Tablet) 20 mg PO QDAY [facility] Stop: 04/20/25 08:59 Last Admin: 03/23/25 10:18 Dose: Not Given Methimazole (Methimazole 5 Mg Tablet) 20 mg PO DAILY [facility] Stop: 04/20/25 08:59 Last Admin: 03/23/25 10:16 Dose: 20 mg Metoprolol Tartrate (Metoprolol Tartrate 25 Mg Tablet) 100 mg PO BID [facility] Stop: 04/19/25 20:59 Last Admin: 03/23/25 10:17 Dose: 100 mg Pantoprazole Sodium (Pantoprazole 40 Mg Tablet) 40 mg PO QDAY [facility] Stop: 04/20/25 08:59 Last Admin: 03/23/25 10:17 Dose: 40 mg Ropinirole HCl (Ropinirole Hcl 0.25 Mg Tablet) 0.25 mg PO HS [facility] Stop: 04/21/25 20:59 Last Admin: 03/22/25 20:37 Dose: 0.25 mg Sennosides (Senna Tablet) 1 tab PO QDAY [facility]; Protocol Stop: 04/22/25 08:59 Last Admin: 03/23/25 10:16 Dose: 1 tab Tamsulosin HCl (Tamsulosin Hcl 0.4 Mg Capsule) 0.4 mg PO QDAY [facility] Stop: 04/20/25 08:59 Last Admin: 03/23/25 10:16 Dose: 0.4 mg Zolpidem Tartrate (Zolpidem 5 Mg Tablet) 5 mg PO HS PRN PRN Reason: INSOMNIA Stop: 04/22/25 11:01 Discontinued Medications Acetaminophen (Acetaminophen 325 Mg Tablet) 650 mg PO Q6H PRN PRN Reason: Fever >101.5 Stop: 04/19/25 19:17 Furosemide (Furosemide Inj 10 Mg/Ml 4ml Vial) 40 mg IVP X1 ONE Stop: 03/20/25 13:44 Last Admin: 03/20/25 14:48 Dose: 40 mg Furosemide (Furosemide 20 Mg Tablet) 20 mg PO QAM [facility] Stop: 04/20/25 08:59 Last Admin: 03/21/25 10:18 Dose: 20 mg Furosemide (Furosemide Inj 10 Mg/Ml 4ml Vial) 40 mg IVP QDAY [facility] Stop: 04/21/25 08:59 Last Admin: 03/23/25 10:33 Dose: Not Given Heparin Sodium (Porcine) (Heparin Sod Inj 5000 Unit/Ml Vial) 2,000 unit IV X1 ONE; Protocol Stop: 03/23/25 00:49 Last Admin: 03/23/25 01:18 Dose: 2,000 unit Heparin Sodium (Porcine) (Heparin Sod Inj 5000 Unit/Ml Vial) 2,000 unit IVP X1 ONE Stop: 03/23/25 16:31 Last Admin: 03/23/25 16:50 Dose: 2,000 unit Ceftriaxone Sodium 2 gm/ (Sodium Chloride) 50 mls @ 100 mls/hr IV X1 ONE Stop: 03/20/25 17:48 Last Infusion: 03/20/25 18:12 Dose: Infused Doxycycline Hyclate 100 mg/ (Sodium Chloride) 100 mls @ 100 mls/hr IV X1 ONE Stop: 03/20/25 18:18 Last Infusion: 03/20/25 18:42 Dose: Infused Azithromycin 500 mg/ Sodium (Chloride) 250 mls @ 250 mls/hr IV HS [facility] Stop: 03/28/25 20:59 Azithromycin 500 mg/ Sodium (Chloride) 250 mls @ 250 mls/hr IV X1 ONE Stop: 03/20/25 20:29 Last Infusion: 03/20/25 21:28 Dose: Infused Magnesium Sulfate (Magnesium Sulfate Ivpb) 4 gm in 50 mls @ 12.5 mls/hr IV X1 ONE Stop: 03/22/25 11:46 Last Admin: 03/22/25 09:08 Dose: 12.5 mls/hr Sodium Chloride (Ns) 500 mls @ 100 mls/hr IV .Q5H ONE Stop: 03/23/25 14:48 Last Admin: 03/23/25 10:18 Dose: 100 mls/hr Ibuprofen (Ibuprofen Tab 200 Mg Tablet) 200 mg PO Q6HR PRN PRN Reason: PAIN OR FEVER > 101 Stop: 04/21/25 22:39 Last Admin: 03/22/25 22:56 Dose: 200 mg Metoprolol Tartrate (Metoprolol Tartrate 25 Mg Tablet) 50 mg PO X1 ONE Stop: 03/20/25 13:44 Last Admin: 03/20/25 14:19 Dose: 50 mg Nitroglycerin (Nitroglycerin Oint 2% 1 Inch Packet) 1 inch TOP X1 ONE Stop: 03/20/25 13:44 Last Admin: 03/20/25 14:18 Dose: 1 inch Potassium Chloride (Potassium Chloride 20 Meq Tabcr) 40 meq PO X1 ONE Stop: 03/22/25 07:47 Last Admin: 03/22/25 09:10 Dose: 40 meq Promethazine HCl (Promethazine Inj 25 Mg/Ml Vial) 25 mg IM X1 ONE; Protocol Stop: 03/20/25 15:28 Last Admin: 03/20/25 15:42 Dose: 25 mg Rivaroxaban (Rivaroxaban 10 Mg Tablet) 20 mg PO QDAY [facility] Stop: 04/11/25 08:59 Last Admin: 03/22/25 09:13 Dose: 20 mg Assessment & Plan Plan This is a 49-year-old male with PMHx of HTN, HFpEF EF 55-60%, CAD, DVT and PE on XARELTO, s/p IVC filter placement, factor B Leiden mutation, DM, AYLEEN, BPH, hypothyroidism admitted for AHRF 2/2 PNA. 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 Had previous PE last month, now on XARELTO. Follows Dr. Alarcon, who is considering switching to WARFARIN given poorly managed thromboembolic disease. Workup for DVT and PE was negative during this admission. ? Continue treating pneumonia ? Agree with HEPARIN for now ? NPO midnight for RHC tomorrow 03/24/25 ? Recommended HEMEONC consult NSTEMI Type 2 (resolved) Hypertension Coronary artery disease Hyperlipidemia Troponin peaked 0.489, likely demand ischemia in setting of hypoxemia. Currently asymptomatic without chest pain or shortness of breath. TSH less than 0.01, free T41.89. Normotensive, BP 128/86, HR 69. ? Recommended repeat lipid panel ? Continue ATORVASTATIN 40 mg HS ? Continue AMIODARONE 200 mg ? Continue ATORVASTATIN 40 mg ? Continue METOPROLOL TARTRATE 100 mg BID ? Maintain K > 4.0 and Mg > 2.0 HFrEF, EF 55-60% 01/2025 Has trace bilateral nonpitting edema on exam, BNP 34 Low suspicion for CHF exacerbation. ? Will reevaluate tomorrow during. Community-acquired pneumonia Diabetes mellitus with neuropathy BPH Hyperthyroidism Management of rest of the medical conditions as per primary team and other consultants. Thank you for the consult and allowing me to participate in the care of the patient. Cardiology will continue to follow. Case was discussed with attending, Dr. Ruiz. Singh Rowe, DO PGYI agree with HEPARIN for now in case Attending Provider Attestation/Addendum I have personally seen and examined the patient separately on the above date of service and discussed the plan of care with the resident. I reviewed the resident Dr. Singh Rowe consultation progress note and agree with the resident findings and plan in the note above and have also edited the documentation to reflect my findings and plan. A 49-year-old male with a past medical history of bilateral recurrent DVT, at least 5 episodes for the past 3 to 4 years, history of PE status post IVC filter and on anticoagulation with Xarelto, receive this factor V Leiden mutation, HFpEF, essential hypertension, hyperlipidemia, obesity, diabetes mellitus, essential hypertension, hypothyroidism, gout, nephrolithiasis, chronic pain, restless leg syndrome presented to the emergency department for further evaluation of shortness of breath as well as bilateral leg swelling. Patient known to me from the last admission in January 2025. Patient does have significant history of previous thromboembolic disease with pulmonary embolism as well as recurrent DVTs. Patient is apparently has factor V Leiden mutation. No records available of the same. He has been on multiple anticoagulants including warfarin and Eliquis and finally is on Xarelto. Patient was at that time recommended to continue to follow-up with a tertiary care center and he used to follow-up with oncologist and welder gun in [facility]. Patient also has history of obesity with diastolic dysfunction on the echo or diastolic heart failure. During last admission pt was found to have small PE in the involving the right lower lobe pulmonary artery tree branches. Also patient had venous duplex positive for DVT with partial occlusive thrombus of the distal right SFA as well as acute tibial vein. Patient was treated conservatively and there was no need of any mechanical thrombectomy and was discharged home and recommended to follow-up with tertiary care center along with some welder gun. Patient did have leg swelling from diastolic CHF exacerbation was given Lasix IV and recommended to discharge on Lasix 40 mg once daily at but unsure of compliance of medications with the patient. Patient also was noted to have elevated troponins at 0.4 and 0.5 during that admission and was recommended to follow-up as outpatient for further ischemic workup given his risk factors. Patient now presented with shortness of breath as well as leg swelling as noted above. CT PE was done which was negative for any PE and bilateral duplex legs without any acute DVT. Patient also complains of some occasional chest pain and on and off with she has been going on for last 2 years and did see a couple of granite chip terrazzo finisher here in [place] in [place] and apparently had a stress test with was negative couple of years ago and none recently. Cardiology was consulted for further evaluation of shortness of breath on exertion, elevated troponins as well as Assessment and plan: 1. Acute on chronic diastolic CHF exacerbation. 2. Elevated troponins-NSTEMI type I versus type II 3. History of PE and recurrent DVT on anticoagulation 4. History of IVC thrombus and IVC filter 6. Heterozygous factor V Leiden mutation 7. Essential hypertension 8. Diabetes mellitus 9. Hyperlipidemia 10. Hyperthyroidism 11. Obesity 12. Questionable compliance with medications and follow-ups. Patient presented with shortness of breath and was noted to have bilateral swelling 1-2+ as well as vascular congestion on the x-ray. CT did not show any evidence of PE and any significant pneumonia. Recommended Lasix 40 mg IV once daily for diuresis and patient's creatinine increased from 1.1-1.4 today. Overall patient does appear to be fluid overload but his fluid status has not been clearly evaluated. Also patient does have elevated troponins with occasional chest pain with positive troponins around 0.5. Given his shortness of breath and history of PE and as well as elevated troponins with unclear volume status, patient was recommended left and right heart cardiac catheterization for further evaluation. Patient was already on Xarelto for anticoagulation which was stopped Sunday morning and will need at least 48 hours since the last dose of anticoagulation. Patient started on heparin drip but given his increased risk of DVT and PE and elevated troponins. N.p.o. after midnight except medications we will continue heparin drip until tomorrow morning. Patient explained placement reason alternatives of performing a left heart cardiac catheterization and right heart cardiac ablation including the risk of bleeding, heart rate, stroke and . Patient understands risk and provided consent for the procedure. Patient with a history of PE which was on the noted in lower lobe pulmonary artery branches in January 2025 without significant clot burden. Recommend to continue anticoagulation with Xarelto as per the DVT PE protocol. History of recurrent DVTs as well as history of IVC thrombus. Recommend to continue anticoagulation with Xarelto once the procedure is completed. Patient was diagnosed with initial DVT around 3 to 4 years ago and since then apparently had 5 episodes since then with an episode of PE which prompted IVC filter placement at a different hospital. Unclear etiology of his recurrent DVT as well as PE. Factor V Leiden mutation will not alone cause this amount of recurrent thromboembolism. Patient apparently had been on Eliquis previously and was stopped because the 30 failed Eliquis and was started on Xarelto Also noted that IVC filter is thrombogenic and it can itself cause IVC thrombosis. Recommended to follow-up with a tertiary care center vascular medicine clinic for further evaluation of his recurrent DVT and PE is a very easily at [facility] or [place] as outpatient. Management of rest of the medical conditions as per primary team and other consultants. Thank you for the consult and allowing me to participate in the care of the patient. Cardiology will continue to follow. Christian Ruiz M.D. Interventional Cardiology
[2025-03-23] MEDS: ATORVASTATIN CALCIUM 20 MG TABLET 40 MG PO (20:24)
[2025-03-23] MEDS: rOPINIRole HCL 0.25 MG TABLET PO (20:24)
[2025-03-24] VITALS (26 sets, daily range): BP systolic 93–153; BP diastolic 59–94; PULSE 62–88; RESP 10–29; TEMP 36.1–36.8; O2SAT 94–99; BMI 39.3
[2025-03-24 00:14] LABS: Partial Thromboplastin Time 50.7 Seconds (22.0-36.0)
[2025-03-24 06:16] LABS: Basophils # (Auto) 0.1 Thou/mm3 (0.0-0.2); Basophils % (Auto) 1 % (0-2.5); Eosinophils # (Auto) 0.2 Thou/mm3 (0.0-0.5); Eosinophils % (Auto) 4 % (0-10); Hematocrit 49.5 % (41.0-53.0); Immature Granulocytes % (Auto) 0 % (0-0); Immature Granulocytes Auto 0.01 Thou/mm3 (0.00-0.00); Lymphocytes # (Auto) 1.8 Thou/mm3 (1.0-4.8); Lymphocytes % (Auto) 29 % (10-50); Mean Corpuscular HGB Conc 34.3 g/dl (31.0-37.0); Mean Corpuscular Hemoglobin 29.2 pg (25.0-35.0); Mean Corpuscular Volume 85 fL (80-100); Monocytes # (Auto) 0.8 Thou/mm3 (0.0-0.8); Monocytes % (Auto) 13 % (0-12); Neutrophils # (Auto) 3.2 Thou/mm3 (1.8-7.7); Neutrophils % (Auto) 53 % (37-80); Nucleated Red Blood Cell % 0 /100 WBC (0); Platelet Count 253 Thou/mm3 (140-440); RDW Standard Deviation 40.1 fL (35.1-43.9); Red Blood Count 5.83 Miln/mm3 (4.50-5.90); White Blood Count 6.1 Thou/mm3 (3.8-10.6)
[2025-03-24 06:37] LABS: INR 1.1 (0.9-1.3); Partial Thromboplastin Time 63.8 Seconds (22.0-36.0); Prothrombin Time 11.9 Seconds (9.0-12.2)
[2025-03-24 07:29] LABS: Alanine Aminotransferase 15 U/L (10-49); Albumin, Serum 3.8 gm/dL (3.5-5.0); Albumin/Globulin Ratio 1.5 (1.2-2.2); Alkaline Phosphatase 165 U/L (46-116); Anion Gap 9 (7-16); Aspartate Amino Transferase 15 U/L (0-34); BUN/Creatinine Ratio 13 Ratio (12-20); Bilirubin,Total 0.4 mg/dL (0.3-1.2); Blood Urea Nitrogen 15 mg/dL (9-23); Calcium 8.5 mg/dL (8.3-10.6); Calcium (Corrected) 8.7 mg/dL (8.5-10.1); Carbon Dioxide 28.8 mMol/L (20.0-31.0); Chloride 101 mMol/L (98-107); Creatinine (Component) 1.2 mg/dL (0.6-1.3); Estimated Creatinine Clearance 82.5 mL/min (>60); Globulin 2.6 gm/dL (2.3-3.5); Glucose 100 mg/dL (74-106); Magnesium 1.8 mg/dL (1.6-2.6); Osmolality,Calculated 278 (275-295); Phosphorous 3.3 mg/dL (2.4-5.1); Potassium 4.1 mMol/L (3.4-5.1); Sodium 139 mMol/L (136-145); Total Protein 6.4 gm/dL (5.7-8.2); eGFR > 60 See Note
[2025-03-24] MEDS: cefTRIAXone/D5w 1gm IV premix 1 GM/50 ML BAG IV (08:25)
[2025-03-24] MEDS: METOPROLOL TARTRATE 25 MG TABLET 100 MG PO ×2 (08:28→21:17)
[2025-03-24] MEDS: DULoxetine HCL 30 MG CAPSULE PO (08:28)
[2025-03-24] MEDS: METHIMAZOLE 5 MG TABLET 20 MG PO (08:28)
[2025-03-24] MEDS: PANTOPRAZOLE 40 MG TABLET PO (08:29)
[2025-03-24] MEDS: DOXYCYCLINE 100 MG TABLET PO ×2 (08:29→21:16)
[2025-03-24] MEDS: ASPIRIN EC 81 MG TABEC PO (08:29)
[2025-03-24] MEDS: SENNA TABLET 1 TAB PO (08:29)
[2025-03-24] MEDS: TAMSULOSIN HCL 0.4 MG CAPSULE PO (08:29)
[2025-03-24] MEDS: AMIODARONE HCL 200 MG TABLET PO (08:29)
--- NOTE | 2025-03-24 08:53 | ESPR_ITS ---
Documentation for date of: 03/24/25 Subjective Subjective Interval history: No acute overnight events. Continued NPO for cath today. Denies fever, chills, headaches, chest pain, sob, cough, GI or urinary symptoms. Afebrile, BP 140/89, HR 78. HGb 17.0, PLT 253, no leukocytosis. ALP 165 downtrending, remainder chem panel WNL. LHC+RHC today showed patent coronary arteries without signs of clot or occlusion, pressure WNL except for LVP 25 (final report pending). May discharge on LASIX 20 mg daily. May resume home XARALOT at midnight. Exam Vital Signs Temp Pulse Resp BP Pulse Ox O2 Del Method FiO2 97.1 F 78 22 H 140/89 H 98 Room Air 21 03/24/25 08:00 03/24/25 08:29 03/24/25 08:00 03/24/25 08:29 03/24/25 08:00 03/24/25 08:00 03/24/25 03:59 Narrative Exam GENERAL * Normal appearing adult male, NAD HEENT * NCAT.?JACQUE. Oral mucosa is moist. Patent Nares NECK * Supple, nontender, no thyromegaly, no meningismus, no JVD, no step offs CHEST * RRR, no m/g/r * CTAB, no w/r/r. Symmetrical chest rise. No intercostal subcostal retraction * Atraumatic, nontender, no crepitus, symmetrical expansion. ABDOMEN * Soft, flat, nontender. No guarding/rebound tenderness/masses. * Bowel sounds presents EXTREMITIES * No edema/cyanosis.? SKIN * Warm and dry, no jaundice/rashes. NEUROMUSCULAR * No lumbar or midline, no CVA, no paraspinal muscle spasm or tenderness. * Moves all 4 extremities well, with full ROM and good CSM. * ESTRELLA x4, CN II-XII grossly intact. * No focal neurologic deficits. PSYCHIATRY * Normal mood and affect, cooperative, no SI or HI or hallucinations. Objective Labs 03/24/25 05:45 03/24/25 05:45 Labs: Laboratory Results - last 24 hr 03/23/25 03/23/25 03/23/25 05:00 15:42 23:28 WBC RBC Hgb Hct MCV MCH MCHC RDW Std Deviation Plt Count Neut % (Auto) Lymph % (Auto) [place] % (Auto) Eos % (Auto) Baso % (Auto) Neut # (Auto) Lymph # (Auto) [place] # (Auto) Eos # (Auto) Baso # (Auto) Immature Gran # (Auto) Absolute Nucleated RBC Immature Gran % Nucleated RBC % PT INR APTT 46.1 H 50.7 H Sodium Potassium Chloride Carbon Dioxide Anion Gap BUN Creatinine Estim Creat Clear Calc eGFR BUN/Creatinine Ratio Glucose Calculated Osmolality Calcium Corrected Calcium Phosphorus Magnesium Total Bilirubin AST ALT Alkaline Phosphatase Total Protein Albumin Globulin Albumin/Globulin Ratio Coccidioides IgM Ab Negative 03/24/25 05:45 WBC 6.1 RBC 5.83 Hgb 17.0 H Hct 49.5 MCV 85 MCH 29.2 MCHC 34.3 RDW Std Deviation 40.1 Plt Count 253 Neut % (Auto) 53 Lymph % (Auto) 29 [place] % (Auto) 13 H Eos % (Auto) 4 Baso % (Auto) 1 Neut # (Auto) 3.2 Lymph # (Auto) 1.8 [place] # (Auto) 0.8 Eos # (Auto) 0.2 Baso # (Auto) 0.1 Immature Gran # (Auto) 0.01 H Absolute Nucleated RBC 0.00 Immature Gran % 0 Nucleated RBC % 0 PT 11.9 INR 1.1 APTT 63.8 H D Sodium 139 Potassium 4.1 Chloride 101 Carbon Dioxide 28.8 Anion Gap 9 BUN 15 Creatinine 1.2 Estim Creat Clear Calc 82.5 eGFR > 60 BUN/Creatinine Ratio 13 Glucose 100 Calculated Osmolality 278 Calcium 8.5 Corrected Calcium 8.7 Phosphorus 3.3 Magnesium 1.8 Total Bilirubin 0.4 AST 15 ALT 15 Alkaline Phosphatase 165 H Total Protein 6.4 Albumin 3.8 Globulin 2.6 Albumin/Globulin Ratio 1.5 Coccidioides IgM Ab Quality Measures Quality Measures none Assessment & Plan Assessment Current Active Medications: Generic Name Dose Route Start Last Admin Trade Name Freq PRN Reason Stop Dose Admin Acetaminophen 650 mg 03/22/25 08:12 03/22/25 20:37 Acetaminophen 325 Mg Tablet PO 04/19/25 19:17 650 mg Q6H PRN Administration Fever >101.5, pain 1-3 Amiodarone HCl 200 mg 03/21/25 09:00 03/24/25 08:29 Amiodarone Hcl 200 Mg Tablet PO 04/20/25 08:59 200 mg QDAY TUAN Administration Aspirin 81 mg 03/21/25 09:00 03/24/25 08:29 Aspirin Ec 81 Mg Tabec PO 04/20/25 08:59 81 mg QDAY TUAN Administration Atorvastatin Calcium 40 mg 03/20/25 21:00 03/23/25 20:24 Atorvastatin Calcium 20 Mg Tablet PO 04/19/25 20:59 40 mg HS TUAN Administration Dextrose 25 ml 03/20/25 19:19 Dextrose 50%-Water Inj 50 Ml Syringe IV 04/19/25 19:18 Q15MIN PRN BG 50-70 responsive npo pt Dextrose 50 ml 03/20/25 19:19 Dextrose 50%-Water Inj 50 Ml Syringe IV 04/19/25 19:18 Q15MIN PRN BG <50 OR BG <70 & pt unresponsive Doxycycline Hyclate 100 mg 03/21/25 21:00 03/24/25 08:29 Doxycycline 100 Mg Tablet PO 03/28/25 20:59 100 mg BID TUAN Administration Duloxetine HCl 30 mg 03/22/25 09:00 03/24/25 08:28 Duloxetine Hcl 30 Mg Capsule PO 04/21/25 08:59 30 mg QDAY TUAN Administration Gabapentin 300 mg 03/21/25 22:00 03/24/25 05:03 Gabapentin 300 Mg Capsule PO 04/20/25 21:59 Not Given TID TUAN Glucagon 1 mg 03/20/25 19:19 Glucagon Inj 1 Mg Vial IM Q15MIN PRN BG <70, and no IV access Ceftriaxone Sodium/Dextrose 1 gm in 50 mls @ 100 mls/hr 03/21/25 09:00 03/24/25 08:25 Rocephin/D5w 1gm Iv Premix IV 03/28/25 08:59 100 mls/hr QDAY TUAN Administration Heparin Sodium/Dextrose 25,000 unit in 250 mls @ 10.56 mls/hr 03/22/25 18:00 03/24/25 07:40 Heparin In D5w Ivpb IV 04/05/25 17:59 14 units/kg/hr .[id number] TUAN 14.783 mls/hr Titration Protocol 10 UNITS/KG/HR Magnesium Sulfate 4 gm in 50 mls @ 12.5 mls/hr 03/24/25 07:46 Magnesium Sulfate Ivpb IV 03/24/25 11:45 X1 ONE Insulin Human Lispro 0 unit 03/21/25 07:30 03/24/25 07:30 Insulin Lispro (Admelog) 1 Unit/0.01 Ml Unit SC 04/20/25 07:29 Not Given AC TUAN Protocol Lisinopril 20 mg 03/21/25 09:00 03/23/25 10:18 Lisinopril 20 Mg Tablet PO 04/20/25 08:59 Not Given QDAY TUAN Methimazole 20 mg 03/21/25 09:00 03/24/25 08:28 Methimazole 5 Mg Tablet PO 04/20/25 08:59 20 mg DAILY TUAN Administration Metoprolol Tartrate 100 mg 03/20/25 21:00 03/24/25 08:28 Metoprolol Tartrate 25 Mg Tablet PO 04/19/25 20:59 100 mg BID TUAN Administration Pantoprazole Sodium 40 mg 03/21/25 09:00 03/24/25 08:29 Pantoprazole 40 Mg Tablet PO 04/20/25 08:59 40 mg QDAY TUAN Administration Ropinirole HCl 0.25 mg 03/22/25 21:00 03/23/25 20:24 Ropinirole Hcl 0.25 Mg Tablet PO 04/21/25 20:59 0.25 mg HS TUAN Administration Sennosides 1 tab 03/23/25 09:00 03/24/25 08:29 Senna Tablet PO 04/22/25 08:59 1 tab QDAY TUAN Administration Protocol Tamsulosin HCl 0.4 mg 03/21/25 09:00 03/24/25 08:29 Tamsulosin Hcl 0.4 Mg Capsule PO 04/20/25 08:59 0.4 mg QDAY TUAN Administration Zolpidem Tartrate 5 mg 03/23/25 11:02 Zolpidem 5 Mg Tablet PO 04/22/25 11:01 HS PRN INSOMNIA Plan This is a 49-year-old male with PMHx of HTN, HFpEF EF 55-60%, CAD, DVT and PE on XARELTO, s/p IVC filter placement, factor B Leiden mutation, DM, AYLEEN, BPH, hypothyroidism admitted for AHRF 2/2 PNA. 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 Had previous PE last month, now on XARELTO. Follows Dr. Alarcon, who is considering switching to WARFARIN given poorly managed thromboembolic disease. Workup for DVT and PE was negative during this admission. ? Continue treating pneumonia ? Resume XARALTO at midnight ? Recommended [facility] consult NSTEMI Type 2 (resolved) Hypertension Coronary artery disease Hyperlipidemia Troponin peaked 0.489, likely demand ischemia in setting of hypoxemia. Currently asymptomatic without chest pain or shortness of breath. TSH less than 0.01, free T41.89. Normotensive, BP 140/89, HR 78. Left and Right Heart cath Report: Normal coronaries, LVEF 55-60%. Mildly elevated LVEPD 24 Normal PA mean 23, PCWP 14, RV pressure 37/9, and RA mean 10. PA 74.5% on room air, AO 92.2% on room air. Normal CO 6.16 L/min, Normal CI 2.9 L/min/m^2. ? Recommended repeat lipid panel ? Continue ATORVASTATIN 40 mg HS ? Continue AMIODARONE 200 mg ? Continue ATORVASTATIN 40 mg ? Continue METOPROLOL TARTRATE 100 mg BID ? Maintain K > 4.0 and Mg > 2.0 HFpEF, EF 55-60% 03/24/2025 Has trace bilateral nonpitting edema on exam, BNP 34 CATH showed LVEF 55-60%. ? Continue home LASIX 40 mg daily Community-acquired pneumonia Diabetes mellitus with neuropathy BPH Hyperthyroidism Management of rest of the medical conditions as per primary team and other consultants. Thank you for the consult and allowing me to participate in the care of the patient. Cardiology will continue to follow. Case was discussed with attending, Dr. Ruiz. Singh Rowe DO PGYI Attending Provider Attestation/Addendum I have personally seen and examined the patient separately on the above date of service and discussed the plan of care with the resident. I reviewed the resident Dr. Singh Rowe consultation progress note and agree with the resident findings and plan in the note above and have also edited the documentation to reflect my findings and plan. Christian Ruiz M.D. Interventional Cardiology
[2025-03-24] MEDS: Magnesium Sulfate 4 GM Ivpb 4 GM/50 ML BAG IV (09:34)
--- NOTE | 2025-03-24 10:31 | PC.SS ---
SS met with patient who is alert/oriented. Patient was able to verify demographics. Patient was admitted for pneumonia. Patient states he resides with his friend, Diana. Patient is independent with ADL's. Patient has hx: depression. He follows at [facility] 1 x monthly. Patient sees a psychologist at medical center. Patient is diabetic. He sees a hemotologist as well. Patient is connected with the [employer]. They provide transportation. Patient has an ILP worker through the [employer], Renaldo Magdaleno. Patient is also connected to [facility] and his classification case manager is Mickey Ruiz. PCP: Akila Diaz. Patient states Diana, careprovider and roommate assists with transportation and finances. Patient verbalized that Diana is his alt medical decision maker. Patient plans on returning home upon discharge. 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
--- NOTE | 2025-03-24 13:24 | PD.RESPRO ---
Documentation for date of: 03/24/25 Subjective Subjective Interval history: 03/24/2025: No acute overnight events to report. Patient seen and examined in hospital bed reports some persistent shortness of breath although oxygen saturations are at an acceptable level. Patient had a right heart cath completed with Dr. Ruiz (cardiology) which did not show any right heart strain but there was elevated left ventricular end-diastolic pressures noted. Patient is off heparin drip and will resume Xarelto this evening for history of PE/DVT. Will continue to monitor the patient and continue outpatient diuretics; expecting discharge within the next 24 hours. Exam Vital Signs Temp Pulse Resp BP Pulse Ox O2 Del Method FiO2 97.8 F 65 17 129/79 95 Room Air 21 03/24/25 11:56 03/24/25 13:15 03/24/25 13:15 03/24/25 13:15 03/24/25 13:15 03/24/25 13:15 03/24/25 03:59 Narrative Exam Physical Exam: GENERAL: NAD, AAOx3, obese HEENT: Moist mucosa. Eyes open, symmetrical, & clear CARDIO: Heart RRR, no obvious murmurs PULM: No noted coughing, +dyspnea CTA B/L, no R/W/R GI: Abdomen soft, nondistended, no pain on palpation. BSx4 SKIN/MSK/EXT: Bilateral lower extremity swelling, no pain on palpation. Pedal pulses present B/L NEURO: AAOx3, no focal neuro deficits, able to move all 4 extremities Objective Labs 03/25/25 05:15 03/25/25 05:15 Labs: Laboratory Results - last 24 hr 03/23/25 03/23/25 03/23/25 05:00 15:42 23:28 WBC RBC Hgb Hct MCV MCH MCHC RDW Std Deviation Plt Count Neut % (Auto) Lymph % (Auto) [place] % (Auto) Eos % (Auto) Baso % (Auto) Neut # (Auto) Lymph # (Auto) [place] # (Auto) Eos # (Auto) Baso # (Auto) Immature Gran # (Auto) Absolute Nucleated RBC Immature Gran % Nucleated RBC % PT INR APTT 46.1 H 50.7 H Sodium Potassium Chloride Carbon Dioxide Anion Gap BUN Creatinine Estim Creat Clear Calc eGFR BUN/Creatinine Ratio Glucose Calculated Osmolality Calcium Corrected Calcium Phosphorus Magnesium Total Bilirubin AST ALT Alkaline Phosphatase Total Protein Albumin Globulin Albumin/Globulin Ratio Coccidioides IgM Ab Negative 03/24/25 05:45 WBC 6.1 RBC 5.83 Hgb 17.0 H Hct 49.5 MCV 85 MCH 29.2 MCHC 34.3 RDW Std Deviation 40.1 Plt Count 253 Neut % (Auto) 53 Lymph % (Auto) 29 [place] % (Auto) 13 H Eos % (Auto) 4 Baso % (Auto) 1 Neut # (Auto) 3.2 Lymph # (Auto) 1.8 [place] # (Auto) 0.8 Eos # (Auto) 0.2 Baso # (Auto) 0.1 Immature Gran # (Auto) 0.01 H Absolute Nucleated RBC 0.00 Immature Gran % 0 Nucleated RBC % 0 PT 11.9 INR 1.1 APTT 63.8 H D Sodium 139 Potassium 4.1 Chloride 101 Carbon Dioxide 28.8 Anion Gap 9 BUN 15 Creatinine 1.2 Estim Creat Clear Calc 82.5 eGFR > 60 BUN/Creatinine Ratio 13 Glucose 100 Calculated Osmolality 278 Calcium 8.5 Corrected Calcium 8.7 Phosphorus 3.3 Magnesium 1.8 Total Bilirubin 0.4 AST 15 ALT 15 Alkaline Phosphatase 165 H Total Protein 6.4 Albumin 3.8 Globulin 2.6 Albumin/Globulin Ratio 1.5 Coccidioides IgM Ab Quality Measures Quality Measures none Assessment & Plan Assessment Current Active Medications: Generic Name Dose Route Start Last Admin Trade Name Freq PRN Reason Stop Dose Admin Acetaminophen 650 mg 03/22/25 08:12 03/22/25 20:37 Acetaminophen 325 Mg Tablet PO 04/19/25 19:17 650 mg Q6H PRN Administration Fever >101.5, pain 1-3 Amiodarone HCl 200 mg 03/21/25 09:00 03/24/25 08:29 Amiodarone Hcl 200 Mg Tablet PO 04/20/25 08:59 200 mg QDAY TUAN Administration Atorvastatin Calcium 40 mg 03/20/25 21:00 03/23/25 20:24 Atorvastatin Calcium 20 Mg Tablet PO 04/19/25 20:59 40 mg HS TUAN Administration Dextrose 25 ml 03/20/25 19:19 Dextrose 50%-Water Inj 50 Ml Syringe IV 04/19/25 19:18 Q15MIN PRN BG 50-70 responsive npo pt Dextrose 50 ml 03/20/25 19:19 Dextrose 50%-Water Inj 50 Ml Syringe IV 04/19/25 19:18 Q15MIN PRN BG <50 OR BG <70 & pt unresponsive Doxycycline Hyclate 100 mg 03/21/25 21:00 03/24/25 08:29 Doxycycline 100 Mg Tablet PO 03/28/25 20:59 100 mg BID TUAN Administration Duloxetine HCl 30 mg 03/22/25 09:00 03/24/25 08:28 Duloxetine Hcl 30 Mg Capsule PO 04/21/25 08:59 30 mg QDAY TUAN Administration Furosemide 40 mg 03/25/25 09:00 Furosemide 40 Mg Tablet PO 04/24/25 08:59 QDAY TUAN Gabapentin 300 mg 03/21/25 22:00 03/24/25 05:03 Gabapentin 300 Mg Capsule PO 04/20/25 21:59 Not Given TID TUAN Glucagon 1 mg 03/20/25 19:19 Glucagon Inj 1 Mg Vial IM Q15MIN PRN BG <70, and no IV access Ceftriaxone Sodium/Dextrose 1 gm in 50 mls @ 100 mls/hr 03/21/25 09:00 03/24/25 08:25 Rocephin/D5w 1gm Iv Premix IV 03/28/25 08:59 100 mls/hr QDAY TUAN Administration Insulin Human Lispro 0 unit 03/21/25 07:30 03/24/25 07:30 Insulin Lispro (Admelog) 1 Unit/0.01 Ml Unit SC 04/20/25 07:29 Not Given AC [facility] Protocol Lisinopril 20 mg 03/21/25 09:00 03/23/25 10:18 Lisinopril 20 Mg Tablet PO 04/20/25 08:59 Not Given QDAY [facility] Methimazole 20 mg 03/21/25 09:00 03/24/25 08:28 Methimazole 5 Mg Tablet PO 04/20/25 08:59 20 mg DAILY TUAN Administration Metoprolol Tartrate 100 mg 03/20/25 21:00 03/24/25 08:28 Metoprolol Tartrate 25 Mg Tablet PO 04/19/25 20:59 100 mg BID UTAN Administration Non-Formulary Medication 20 mg 03/24/25 21:00 Rivaroxaban [Xarelto] PO 04/23/25 20:59 QDAY TUAN Pantoprazole Sodium 40 mg 03/21/25 09:00 03/24/25 08:29 Pantoprazole 40 Mg Tablet PO 04/20/25 08:59 40 mg QDAY TUAN Administration Ropinirole HCl 0.25 mg 03/22/25 21:00 03/23/25 20:24 Ropinirole Hcl 0.25 Mg Tablet PO 04/21/25 20:59 0.25 mg HS TUAN Administration Sennosides 1 tab 03/23/25 09:00 03/24/25 08:29 Senna Tablet PO 04/22/25 08:59 1 tab QDAY TUAN Administration Protocol Tamsulosin HCl 0.4 mg 03/21/25 09:00 03/24/25 08:29 Tamsulosin Hcl 0.4 Mg Capsule PO 04/20/25 08:59 0.4 mg QDAY TUAN Administration Zolpidem Tartrate 5 mg 03/23/25 11:02 Zolpidem 5 Mg Tablet PO 04/22/25 11:01 HS PRN INSOMNIA Plan 49-year-old male with past medical history of hypertension, diabetes, HFpEF (EF 55-60%), CAD, DVT and pulmonary embolism on Xarelto, status post IVC filter placement, factor V Leiden mutation, AYLEEN, BPH, hyperthyroidism who presented to the ED due to shortness of breath, chest pain, productive cough. Patient was admitted for pneumonia. #Community-acquired pneumonia #Pulmonary embolism/chronic thromboembolic disease-ruled out Patient presented with sudden onset of shortness of breath with vomiting, chills, chest pain cough with productive sputum. Chest x-ray shows right upper lobe infiltrate Patient also has history of pulmonary embolism/DVT and is on Xarelto, additionally patient has mutation and factor V Leiden. Wells score: 4.5 moderate risk for DVT PE Chest CTA was negative for pulmonary embolism Patient is at risk of clotting even on anticoagulation Blood cultures negative in 48 hours Plan: Oxygen supplementation On ceftriaxone and azithromycin (03/21/2025?) Cardiology consulted, appreciate recommendations #Heart failure with preserved ejection fraction [EF 55-60%] Last echo 01/28/2025: LV size and function with EF 55-60%. Diastolic Dysfunction stage I RV size and function. Normal RVSP 25 mmhg. No RV strain Trace-Mild MR & MAC. trace TR Plan: Continue p.o. Lasix 40 mg daily Resume antihypertensive as BP permits Avoid fluid overload strict Intake and output Keep K>4, Mg>2 #History of thromboembolic disease/PE on anticoagulation #Elevated left ventricular end-diastolic pressures Patient has history of DVT and pulmonary embolism, status post IVC filter, history of factor V Leiden takes Xarelto at home Ultrasound bilateral lower extremities negative for DVT CTA of the chest negative for any acute pulmonary embolism. Right heart catheterization shows elevated left ventricular end-diastolic pressures Plan: Will resume Xarelto at bedtime Cardiology consulted, appreciate recommendations Discontinued heparin drip Ambulate with assistance around the room #Diabetes mellitus with neuropathy Continue gabapentin 300mg TID resumed as taken at home Ropinirole 0.25 mg p.o. at bedtime SSI Hypoglycemia protocol in place #Elevated troponins Troponins already peaked no need to continue to trend #Hypertension #Coronary artery disease #Hyperlipidemia On amiodarone 200 mg daily On aspirin 81 mg Metoprolol tartrate 100 mg twice daily On lisinopril 20 mg daily On atorvastatin 40 mg at bedtime #BPH On tamsulosin 0.4 mg daily Plan: Continue home medication #Hyperthyroidism TSH less than 0.01, free T4 elevated At home patient takes methimazole Plan: Continue methimazole Hospital Management: Disposition: tele Fluids: None Feeding: Cardiac diet Thrombo prophylaxis: Xarelto Gastric Ulcer prophylaxis: Not needed CODE STATUS: Full code Patient seen and examined with attending Dr. Louis and senior resident Dr. Fior Wheatley, PGY-1 Patient examined and case discussed with the team including attending physician. Note reviewed, I agree with the care plan as documented. Mr Mcnulty is a 49-year-old male admitted for community-acquired pneumonia and vascular congestion secondary to possible CHF. Patient's echocardiogram showed diastolic dysfunction stage I EF 55 to 60%. Cardiology consulted, appreciate recommendations. Patient underwent successful right and left heart catheterization today 04/10/2025. As per cardiology recommendations, Xarelto will be resumed from tonight, with close watch out for femoral site post catheterization. Patient also history of DVT and factor V Leiden for which she has been on Xarelto at home. Will resume same dose at this time. Please refer to the note above for further details. - Hussain Childress MD, PGY 2 Disclaimer: The document may contain phonetic/typographic errors due to voice recognition software. These errors are purely due to imperfections in the software program and should not be misconstrued in any way to compromise the substance of the patient's medical care during this visit. Attending Provider Attestation/Addendum I, Padmini Louis DO, attest that I was physically present for the witt portions of the service and evaluated the patient with the resident and I reviewed and discussed the case with the resident and agree with the resident's findings and plans of care as documented above Patient underwent left and right heart cath this morning. EF is 55 to 60% and end-diastolic pressure of 12 mmHg. Minimal disease was found in ostial diagonal 1 with 20% disease. Normal right heart pressures as well. Patient remains on room air otherwise. Anticipate discharge within the next 24 hours as cardiac workup has been benign.. Patient will need follow-up with hematology regarding his factor V Leiden
--- NOTE | 2025-03-24 13:37 | PC.NURSE ---
1327 patient is awake, alert, breathing unlabored, s/p LHC and RHC by Dr. Ruiz, dressing to right groin dry with no bleeding or hematoma, arterial and veous sheath have been removed by Satnam DUNBAR with [facility] and venous access sites. Patient to lay flat 2 1/2 hrs post hemostatis time ([id number]).
--- NOTE | 2025-03-24 14:05 | PC.NURSE ---
1405 report given to Satnam DUNBAR
[2025-03-24 14:11] LABS: Cocci Serology, IgG Negative (Negative)
--- NOTE | 2025-03-24 14:56 | PC.NURSE ---
Report given to BETTINA Calixto. Patient transferred to tele via [facility]. PT A&O x4. VSS. Dressing to right groin clean, dry, and intact. No signs of bleeding or hematoma. Patient to be on bedrest 2 more hours after getting back to room.
[2025-03-24] MEDS: GABAPENTIN 300 MG CAPSULE PO ×2 (15:04→21:16)
[2025-03-24 15:38] LABS: O2 Saturation (Cath Lab) 92 % (91-98); Puncture Site Aortic
[2025-03-24 15:39] LABS: O2 Saturation (Cath Lab) 75 % (91-98); Puncture Site Pulmonary Artery
--- NOTE | 2025-03-24 20:19 | PD.CARDCATH ---
Cardiac Cath Procedure Procedure Name Date of procedure: 03/24/2025 BUSINESS IMPROVEMENT MANAGER: Christian Ruiz MD PROCEDURE PERFORMED: 1. Left heart and right heart cardiac catheterization including right, left coronary angiograms and left ventriculogram - CPT 88862 2. Ultrasound-guided access of the right radial artery and right femoral vein - CPT 17404 3. Conscious sedation for 30 minutes - CPT 29074 Procedure Narrative HISTORY AND INDICATIONS: A 49-year-old male with a past medical history of bilateral recurrent DVT, at least 5 episodes for the past 3 to 4 years, history of PE status post IVC filter and on anticoagulation with Xarelto, receive this factor V Leiden mutation, HFpEF, essential hypertension, hyperlipidemia, obesity, diabetes mellitus, essential hypertension, hypothyroidism, gout, nephrolithiasis, chronic pain, restless leg syndrome presented to the emergency department for further evaluation. Discussed with patient risks, benefits and alternatives of performing left and right coronary angiogram including the risks of bleeding, heart rate, stroke and with the procedure. Patient understands the risks and is willing to undergo the procedure. Consent provided for the same. H&P updated and consent was signed prior to the procedure DESCRIPTION OF PROCEDURE: The patient was brought to the cardiac catheterization lab and all asceptic precautions were followed. Patient was given 1 Mg of Versed and 50 mcg of fentanyl for moderate conscious sedation. 2 mL of lidocaine was given in the right wrist. The right femoral artery artery was accessed via the ultrasound guidance as well as micropuncture technique and a 5 Sudanese sheath was introduced. JL 4 and JR4 diagnostic catheters were used to perform the coronary angiogram as well as a left ventriculogram. 10 ml of lidocaine was then injected in the right femoral area and right femoral vein vein was accessed with ultrasound guidance and micropuncture technique. A 7 tamazight femoral sheath was used. A 7 Sudanese Timbo-John catheter was used with a Timbo wire to direct into the right atrium with inflated balloon. Serial measurements of right atrium, right ventricle, pulmonary artery and pulmonary capillary wedge were taken severely with normal respiration as well as at end expiration as noted below. We then used a 6 Sudanese TIG 4 catheter to perform the left and right coronary angiogram as well as a left ventriculogram which showed the following findings. [facility] findings: 1. Left ventricular ejection fraction showed normal LVEF at 55 to 60% with no regional wall motion abnormalities. LVEDP was normal at 12 mmHg. There was no significant transvalvular aortic gradient. 2. Right dominant circulation, left main artery is a large-caliber vessel without any significant stenosis. 3. LAD is a large sized artery with a medium size diagonal and does not show any significant disease. mild 20% disease of ostial diagonal 1 4. LCx is a large sized artery with medium OM1 and small OM2 without any significant disease. 5. RCA is a large artery with nedium RPDA and RPL without any significant disease. RHC findings: Mean right atrial pressure was 10 mmHg. Right atrial pressure was 37/9 mmHg. Pulmonary artery mean pressure was 23 mmHg Mean pulmonary capillary wedge pressure was 13 mmHg. TPG was 10 mmHg Pulmonary artery PA saturation was 74.5%.? Arterial saturation was 92.2 % on room air. Cardiac output was 6.16 L/min and cardiac index was normal at 2.6 L/min/m? Manual pressure was used to obtain hemostasis of the right femoral artery and vein. Patient will be monitored in the cardiac service delivery director for the next 2 to 3 hours and will be sent to the telemetry floor. Patient recommended to follow-up with me in the office within 7 days after discharge. Complications: None Specimens: None Blood loss: Estimated 10 mL Summary/findings: 1. NSTEMI and CHF exacerbation: LHC showed normal coronaries without any angiographically significant obstruction and few luminal irregularities. 2. LVEF normal at 55 to 60%. LVEDP mildly elevated 25 mmHg. No significant transvalvular aortic gradient. 4. Normal right heart pressures with a mean PCWP of 30 mmHg, mean PA of 23 mmHg and mean RA pressure of 10 mmHg. Normal cardiac output and cardiac index as noted above. Recommendations: 1. Recommend aggressive risk factor modification as well as aggressive medical management. 2. Patient has been adequately diuresed as a PCWP and right heart pressures appear to be normal. The patient does have mildly elevated LVEDP at 24 mmHg which could be secondary to diastolic dysfunction and history of uncontrolled hypertension versus microvascular dysfunction. 3. Patient home dose of Lasix was Lasix 20 mg once daily and recommend to discharge him on at least on Lasix 40 mg once daily. 4. Patient recommended not to lift more than 5 lbs for the next 7-10 days and follow up with me in my office in 7 days. Christian Ruiz MD Interventional Cardiology.
[2025-03-24] MEDS: rOPINIRole HCL 0.25 MG TABLET PO (21:16)
[2025-03-24] MEDS: RIVAROXABAN 10 MG TABLET 20 MG PO (21:17)
[2025-03-24] MEDS: ATORVASTATIN CALCIUM 20 MG TABLET 40 MG PO (21:17)
[2025-03-25] VITALS (7 sets, daily range): BP systolic 103–138; BP diastolic 67–88; PULSE 65–81; RESP 12–21; TEMP 36.3–36.8; O2SAT 95–99; BMI 39.9
[2025-03-25 05:56] LABS: Basophils % (Auto) 1 % (0-2.5); Eosinophils # (Auto) 0.2 Thou/mm3 (0.0-0.5); Eosinophils % (Auto) 3 % (0-10); Hematocrit 50.2 % (41.0-53.0); Hemoglobin 16.4 g/dL (13.5-16.0); Immature Granulocytes % (Auto) 0 % (0-0); Immature Granulocytes Auto 0.03 Thou/mm3 (0.00-0.00); Lymphocytes # (Auto) 1.5 Thou/mm3 (1.0-4.8); Lymphocytes % (Auto) 20 % (10-50); Mean Corpuscular HGB Conc 32.7 g/dl (31.0-37.0); Mean Corpuscular Hemoglobin 28.9 pg (25.0-35.0); Mean Corpuscular Volume 88 fL (80-100); Monocytes # (Auto) 0.9 Thou/mm3 (0.0-0.8); Monocytes % (Auto) 12 % (0-12); Neutrophils # (Auto) 4.6 Thou/mm3 (1.8-7.7); Neutrophils % (Auto) 64 % (37-80); Nucleated Red Blood Cell % 0 /100 WBC (0); Platelet Count 238 Thou/mm3 (140-440); RDW Standard Deviation 41.6 fL (35.1-43.9); Red Blood Count 5.68 Miln/mm3 (4.50-5.90); White Blood Count 7.2 Thou/mm3 (3.8-10.6)
[2025-03-25] MEDS: GABAPENTIN 300 MG CAPSULE PO (06:01)
[2025-03-25 06:26] LABS: Alanine Aminotransferase 13 U/L (10-49); Albumin, Serum 3.7 gm/dL (3.5-5.0); Albumin/Globulin Ratio 1.4 (1.2-2.2); Alkaline Phosphatase 171 U/L (46-116); Anion Gap 9 (7-16); Aspartate Amino Transferase 15 U/L (0-34); BUN/Creatinine Ratio 12 Ratio (12-20); Bilirubin,Total 0.5 mg/dL (0.3-1.2); Blood Urea Nitrogen 12 mg/dL (9-23); Calcium 8.6 mg/dL (8.3-10.6); Calcium (Corrected) 8.8 mg/dL (8.5-10.1); Carbon Dioxide 29.7 mMol/L (20.0-31.0); Chloride 101 mMol/L (98-107); Globulin 2.6 gm/dL (2.3-3.5); Glucose 99 mg/dL (74-106); Osmolality,Calculated 279 (275-295); Phosphorous 3.2 mg/dL (2.4-5.1); Potassium 4.3 mMol/L (3.4-5.1); Sodium 140 mMol/L (136-145); Total Protein 6.3 gm/dL (5.7-8.2); eGFR > 60 See Note
[2025-03-25] MEDS: Furosemide 40 MG TABLET PO (08:58)
[2025-03-25] MEDS: SENNA TABLET 1 TAB PO (08:58)
[2025-03-25] MEDS: DOXYCYCLINE 100 MG TABLET PO (08:58)
[2025-03-25] MEDS: METOPROLOL TARTRATE 25 MG TABLET 100 MG PO (08:58)
[2025-03-25] MEDS: AMIODARONE HCL 200 MG TABLET PO (08:59)
[2025-03-25] MEDS: TAMSULOSIN HCL 0.4 MG CAPSULE PO (08:59)
[2025-03-25] MEDS: cefTRIAXone/D5w 1gm IV premix 1 GM/50 ML BAG IV (08:59)
[2025-03-25] MEDS: DULoxetine HCL 30 MG CAPSULE PO (08:59)
[2025-03-25] MEDS: METHIMAZOLE 5 MG TABLET 20 MG PO (08:59)
--- NOTE | 2025-03-25 09:09 | ESPR_ITS ---
Documentation for date of: 03/25/25 Subjective Subjective Interval history: No acute overnight events. Doing well today. Denies fever, chills, headaches, chest pain, sob, cough, GI or urinary symptoms. Vitals WNL. ALK improving, remainder chem panel WNL. Hgb 16.4 improving, remainder CBC wnl. Recommended d/d on LASIX 40 mg daily, continue other medication as prescribed, continue XARALTO. He will see dr. Alarcon after discharge for FVL mutation management. Exam Vital Signs Temp Pulse Resp BP Pulse Ox O2 Del Method FiO2 97.4 F 69 16 121/76 96 Room Air 21 03/25/25 08:00 03/25/25 08:59 03/25/25 08:00 03/25/25 08:59 03/25/25 08:00 03/25/25 08:00 03/25/25 01:48 Narrative Exam GENERAL * Normal appearing adult male, NAD HEENT * NCAT.?JACQUE. Oral mucosa is moist. Patent Nares NECK * Supple, nontender, no thyromegaly, no meningismus, no JVD, no step offs CHEST * RRR, no m/g/r * CTAB, no w/r/r. Symmetrical chest rise. No intercostal subcostal retraction * Atraumatic, nontender, no crepitus, symmetrical expansion. ABDOMEN * Soft, flat, nontender. No guarding/rebound tenderness/masses. * Bowel sounds presents EXTREMITIES * No edema/cyanosis.? SKIN * Warm and dry, no jaundice/rashes. NEUROMUSCULAR * No lumbar or midline, no CVA, no paraspinal muscle spasm or tenderness. * Moves all 4 extremities well, with full ROM and good CSM. * ESTRELLA x4, CN II-XII grossly intact. * No focal neurologic deficits. PSYCHIATRY * Normal mood and affect, cooperative, no SI or HI or hallucinations. Objective Labs 03/25/25 05:15 03/25/25 05:15 Labs: Laboratory Results - last 24 hr 03/23/25 03/24/25 03/24/25 05:00 11:54 11:54 WBC RBC Hgb Hct MCV MCH MCHC RDW Std Deviation Plt Count Neut % (Auto) Lymph % (Auto) [place] % (Auto) Eos % (Auto) Baso % (Auto) Neut # (Auto) Lymph # (Auto) [place] # (Auto) Eos # (Auto) Baso # (Auto) Immature Gran # (Auto) Absolute Nucleated RBC Immature Gran % Nucleated RBC % POC Blood Site Aortic Pulmonary Artery POC O2 Saturation 92 Sodium Potassium Chloride Carbon Dioxide Anion Gap BUN Creatinine Estim Creat Clear Calc eGFR BUN/Creatinine Ratio Glucose Calculated Osmolality Calcium Corrected Calcium Phosphorus Magnesium Total Bilirubin AST ALT Alkaline Phosphatase Total Protein Albumin Globulin Albumin/Globulin Ratio Coccidioides IgG Ab Negative 03/24/25 03/25/25 11:54 05:15 WBC 7.2 RBC 5.68 Hgb 16.4 H Hct 50.2 MCV 88 MCH 28.9 MCHC 32.7 RDW Std Deviation 41.6 Plt Count 238 Neut % (Auto) 64 Lymph % (Auto) 20 [place] % (Auto) 12 Eos % (Auto) 3 Baso % (Auto) 1 Neut # (Auto) 4.6 Lymph # (Auto) 1.5 [place] # (Auto) 0.9 H Eos # (Auto) 0.2 Baso # (Auto) 0.0 Immature Gran # (Auto) 0.03 H Absolute Nucleated RBC 0.00 Immature Gran % 0 Nucleated RBC % 0 POC Blood Site POC O2 Saturation 75 L Sodium 140 Potassium 4.3 Chloride 101 Carbon Dioxide 29.7 Anion Gap 9 BUN 12 Creatinine 1.0 Estim Creat Clear Calc 99.0 eGFR > 60 BUN/Creatinine Ratio 12 Glucose 99 Calculated Osmolality 279 Calcium 8.6 Corrected Calcium 8.8 Phosphorus 3.2 Magnesium 2.0 Total Bilirubin 0.5 AST 15 ALT 13 Alkaline Phosphatase 171 H Total Protein 6.3 Albumin 3.7 Globulin 2.6 Albumin/Globulin Ratio 1.4 Coccidioides IgG Ab Quality Measures Quality Measures none Assessment & Plan Assessment Current Active Medications: Generic Name Dose Route Start Last Admin Trade Name Freq PRN Reason Stop Dose Admin Acetaminophen 650 mg 03/22/25 08:12 03/22/25 20:37 Acetaminophen 325 Mg Tablet PO 04/19/25 19:17 650 mg Q6H PRN Administration Fever >101.5, pain 1-3 Amiodarone HCl 200 mg 03/21/25 09:00 03/25/25 08:59 Amiodarone Hcl 200 Mg Tablet PO 04/20/25 08:59 200 mg QDAY TUAN Administration Atorvastatin Calcium 40 mg 03/20/25 21:00 03/24/25 21:17 Atorvastatin Calcium 20 Mg Tablet PO 04/19/25 20:59 40 mg HS TUAN Administration Dextrose 25 ml 03/20/25 19:19 Dextrose 50%-Water Inj 50 Ml Syringe IV 04/19/25 19:18 Q15MIN PRN BG 50-70 responsive npo pt Dextrose 50 ml 03/20/25 19:19 Dextrose 50%-Water Inj 50 Ml Syringe IV 04/19/25 19:18 Q15MIN PRN BG <50 OR BG <70 & pt unresponsive Doxycycline Hyclate 100 mg 03/21/25 21:00 03/25/25 08:58 Doxycycline 100 Mg Tablet PO 03/28/25 20:59 100 mg BID TUAN Administration Duloxetine HCl 30 mg 03/22/25 09:00 03/25/25 08:59 Duloxetine Hcl 30 Mg Capsule PO 04/21/25 08:59 30 mg QDAY TUAN Administration Furosemide 40 mg 03/25/25 09:00 03/25/25 08:58 Furosemide 40 Mg Tablet PO 04/24/25 08:59 40 mg QDAY TUAN Administration Gabapentin 300 mg 03/21/25 22:00 03/25/25 06:01 Gabapentin 300 Mg Capsule PO 04/20/25 21:59 300 mg TID TUAN Administration Glucagon 1 mg 03/20/25 19:19 Glucagon Inj 1 Mg Vial IM Q15MIN PRN BG <70, and no IV access Ceftriaxone Sodium/Dextrose 1 gm in 50 mls @ 100 mls/hr 03/21/25 09:00 03/25/25 08:59 Rocephin/D5w 1gm Iv Premix IV 03/28/25 08:59 100 mls/hr QDAY TUAN Administration Insulin Human Lispro 0 unit 03/21/25 07:30 03/25/25 07:37 Insulin Lispro (Admelog) 1 Unit/0.01 Ml Unit SC 04/20/25 07:29 Not Given AC TUAN Protocol Lisinopril 20 mg 03/21/25 09:00 03/23/25 10:18 Lisinopril 20 Mg Tablet PO 04/20/25 08:59 Not Given QDAY TUAN Methimazole 20 mg 03/21/25 09:00 03/25/25 08:59 Methimazole 5 Mg Tablet PO 04/20/25 08:59 20 mg DAILY TUAN Administration Metoprolol Tartrate 100 mg 03/20/25 21:00 03/25/25 08:58 Metoprolol Tartrate 25 Mg Tablet PO 04/19/25 20:59 100 mg BID TUAN Administration Rivaroxaban 20 mg 03/24/25 21:00 03/24/25 21:17 Rivaroxaban 10 Mg Tablet PO 04/23/25 20:59 20 mg HS TUAN Administration Ropinirole HCl 0.25 mg 03/22/25 21:00 03/24/25 21:16 Ropinirole Hcl 0.25 Mg Tablet PO 04/21/25 20:59 0.25 mg HS TUAN Administration Sennosides 1 tab 03/23/25 09:00 03/25/25 08:58 Senna Tablet PO 04/22/25 08:59 1 tab QDAY TUAN Administration Protocol Tamsulosin HCl 0.4 mg 03/21/25 09:00 03/25/25 08:59 Tamsulosin Hcl 0.4 Mg Capsule PO 04/20/25 08:59 0.4 mg QDAY TUAN Administration Zolpidem Tartrate 5 mg 03/23/25 11:02 Zolpidem 5 Mg Tablet PO 04/22/25 11:01 HS PRN INSOMNIA Plan This is a 49-year-old male with PMHx of HTN, HFpEF EF 55-60%, CAD, DVT and PE on XARELTO, s/p IVC filter placement, factor B Leiden mutation, DM, AYLEEN, BPH, hypothyroidism admitted for AHRF 2/2 PNA. 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 Had previous PE last month, now on XARELTO. Follows Dr. Alarcon, who is considering switching to WARFARIN given poorly managed thromboembolic disease. Workup for DVT and PE was negative during this admission. ? Continue treating pneumonia ? Continue XARALTO NSTEMI Type 2 (resolved) Hypertension Coronary artery disease Hyperlipidemia Troponin peaked 0.489, likely demand ischemia in setting of hypoxemia. Currently asymptomatic without chest pain or shortness of breath. TSH less than 0.01, free T41.89. Normotensive, BP 140/89, HR 78. Left and Right Heart cath Report: * LHC showed normal coronaries without any angiographically significant obstruction and few luminal irregularities. * LVEF normal at 55 to 60%. LVEDP mildly elevated 25 mmHg. No significant transvalvular aortic gradient. * Normal right heart pressures with a mean PCWP of 30 mmHg, mean PA of 23 mmHg and mean RA pressure of 10 mmHg. Normal cardiac output and cardiac index as noted above. ? Continue ATORVASTATIN 40 mg HS ? Continue AMIODARONE 200 mg ? Continue ATORVASTATIN 40 mg ? Continue METOPROLOL TARTRATE 100 mg BID ? Maintain K > 4.0 and Mg > 2.0 HFpEF, EF 55-60% 03/24/2025 Has trace bilateral nonpitting edema on exam, BNP 34 CATH showed LVEF 55-60%. ? Continue home LASIX 40 mg daily Community-acquired pneumonia Diabetes mellitus with neuropathy BPH Hyperthyroidism Management of rest of the medical conditions as per primary team and other consultants. Thank you for the consult and allowing me to participate in the care of the patient. Cardiology will continue to follow. Case was discussed with attending, Dr. Ruiz. Singh Rowe, DO PGYI Attending Provider Attestation/Addendum I have personally seen and examined the patient separately on the above date of service and discussed the plan of care with the resident. I reviewed the resident Dr. Singh Rowe consultation progress note and agree with the resident findings and plan in the note above and have also edited the documentation to reflect my findings and plan. Christian Ruiz M.D. Interventional Cardiology
--- NOTE | 2025-03-25 10:49 | ESDS_ITS ---
<Statement entered by Padmini Louis DO - 03/25/25 15:19> I, Padmini Louis DO, attest that I was physically present for the witt portions of the service and evaluated the patient with the resident and I reviewed and discussed the case with the resident and agree with the resident's findings and plans of care as documented above Planned Discharge Date 03/25/25 DS: Providers Provider Date of admission: 03/20/25 19:18 Primary care physician: Physician No Primary/Family Admitting Provider: Damon Orozco MD Attending Provider on Admission: Padmini Louis DO Consults: 03/21/25 15:34 Consult to Cardiology Routine Comment: Consulting Provider: Christian Ruiz 03/21/25 20:41 Referral Jennifer Routine Comment: Attending Provider on DC: Padmini Louis DO Discharging Provider: Víctor Joshi MD Anticipated date of discharge: 03/25/25 DS: Diagnosis Problem List Completed Was Problem List Reviewed/Reconciled?: Yes Hospital Course Hospital Course Hospital course: 49-year-old male with past medical history of hypertension, diabetes, HFpEF (EF 55-60%), CAD, DVT and pulmonary embolism on Xarelto, status post IVC filter placement history, factor V Leiden mutation, AYLEEN, BPH, hypothyroidism who presented to the ED due to shortness of breath chest pain and productive cough. Patient was admitted for community-acquired pneumonia/pulmonary embolism rule out. During hospital stay patient was treated with IV antibiotics, was evaluated for pulmonary embolism/DVT workup which came back negative. Cardiolog y was consulted as patient has recurrent history of PEs and DVTs while on xarelto and had right heart cath and left heart cath which showed elevated left ventricular diastolic pressures and recommended increasing his home Lasix dose at the time of discharge, as well as to follow up with prints and drawings curator in order to switch his anticoagulation from xarelto to warfarin therapy. At this time patient is medically stable for discharge. Follow up with primary care physician within 1 week of discharge. Follow up with cardiology within 2 weeks of discharge. Your dose of lasix has been increased from 20mg to 40mg everyday. Follow-up with prints and drawings curator Dr. Alarcon in regards to switching your Xarelto to Coumadin therapy. Should any symptoms recur or worsen patient is instructed to return to the ED. Problem list: #Community-acquired pneumonia #Pulmonary embolism/chronic thromboembolic disease-ruled out #Heart failure with preserved ejection fraction [EF 55-60%] #History of thromboembolic disease/PE on anticoagulation #Elevated left ventricular end-diastolic pressures #Diabetes mellitus with neuropathy #Elevated troponins #Hypertension #Coronary artery disease #Hyperlipidemia #BPH #Hyperthyroidism Case discussed with my senor Dr. Childress and my attending Dr. Heriberto Joshi MD PGY-1 Patient was examined with the team including attending physician. Note reviewed, I agree with the discharge plan as documented. - Hussain Childress MD PGY2 Disclaimer: The document may contain phonetic/typographic errors due to voice recognition software. These errors are purely due to imperfections in the software program and should not be misconstrued in any way to compromise the substance of the patient's medical care during this visit. Status at Discharge Functional status at discharge: independent ambulation Overall status at discharge: patient is back to baseline Time Spent with Patient Time attestation: Total time spent providing and/or coordinating discharge services: Time spent: Greater than 30 minutes Exam Vital Signs Temp Pulse Resp BP Pulse Ox O2 Del Method FiO2 97.4 F 69 16 121/76 96 Room Air 21 03/25/25 08:00 03/25/25 08:59 03/25/25 08:00 03/25/25 08:59 03/25/25 08:00 03/25/25 08:00 03/25/25 01:48 Narrative Exam GENERAL: NAD, AAOx3, obese HEENT: Moist mucosa. Eyes open, symmetrical, & clear CARDIO: Heart RRR, no obvious murmurs PULM: No noted coughing, +dyspnea CTA B/L, no R/W/R GI: Abdomen soft, nondistended, no pain on palpation. BSx4 SKIN/MSK/EXT: Bilateral lower extremity swelling, no pain on palpation. Pedal pulses present B/L NEURO: AAOx3, no focal neuro deficits, able to move all 4 extremities Discharge Plan Plan Patient Disposition: HOME (Self Care) Care Plan Goals: Follow up with primary care physician within 1 week of discharge Follow up with cardiology within 2 weeks of discharge. Your dose of lasix has been increased from 20mg to 40mg everyday. Follow-up with prints and drawings curator Dr. Alarcon in regards to switching your Xarelto to Coumadin therapy. Should any symptoms recur or worsen patient is instructed to return to the ED. Prescriptions/Referrals Prescriptions/Med Rec: New furosemide [Lasix] 40 mg tablet 40 mg PO QAM 30 Days Qty: 30 0RF Continued gabapentin 300 mg capsule 300 mg PO TID lisinopril 20 MG tablet 20 mg PO BID Qty: 0 Patient Comments: PER GHAZALA MORRIS, ONLY TAKES IF SBP >125 metformin 500 mg tablet 500 mg PO HS Patient Comments: TAKE 1 TABLET BY MOUTH EVERY DAY AT BEDTIME FOR DIABETES metoprolol tartrate 100 mg tablet 100 mg PO BID Patient Comments: TAKE 1 TABLET BY MOUTH TWICE A DAY FOR BLOOD PRESSURE ropinirole 0.25 mg Tablet 0.25 mg PO HS Patient Comments: 1-3 HRS PRIOR TO BEDTIME amiodarone 200 mg Tablet 200 mg PO QDAY atorvastatin 40 mg tablet 40 mg PO HS Patient Comments: TAKE 1 TABLET BY MOUTH AT BEDTIME FOR CHOLESTEROL meclizine 25 mg tablet 25 mg PO BID PRN (Reason: Dizziness) Patient Comments: TAKE 1-2 TABLETS BY MOUTH TWICE A DAY NEEDED FOR DIZZINESS tamsulosin [Flomax] 0.4 mg capsule 0.4 mg PO QDAY Qty: 7 0RF Ozempic 1 mg/dose (4 mg/3 mL) pen injector 1.75 mg SUBCUT QWEEK Patient Comments: Rx Instructions: 1 time weekly duloxetine 30 mg capsule,delayed release(DR/EC) 30 mg PO QDAY finasteride 5 mg tablet 5 mg PO QDAY Patient Comments: TAKE 1 TABLET BY MOUTH EVERY DAY benzonatate 100 mg capsule 200 mg PO TID PRN (Reason: cough) allopurinol 100 mg tablet 200 mg PO DAILY Patient Comments: TAKE 2 TABS BY MOUTH 1 TIME A DAY FOR GOUT multivitamin [Daily Multi-Vitamin] Tablet 1 tab PO QAM loratadine [Claritin] 10 mg tablet 10 mg PO QDAY PRN (Reason: allergic symptoms) ondansetron HCl 4 mg tablet 4 mg PO TID PRN (Reason: nausea and vomiting) albuterol sulfate 90 mcg/actuation HFA aerosol inhaler 2 puff INHALATION Q4H PRN (Reason: shortness of breath or wheezing) Patient Comments: TAKE 1-2 PUFFS BY MOUTH EVERY 4 HOURS INHALATION NEEDED Xarelto 20 mg tablet 20 mg PO QDAY Qty: 30 3RF Rx Instructions: must administer with evening meal Discontinued furosemide 20 mg tablet 20 mg PO QDAY Referrals: [facility] [Outside] No Primary/Family,Physician [Primary Care Provider] - Patient/Caregiver Discharge Instructions Education Materials: What Is Pneumonia?, Preventing Deep Vein Thrombosis, ED Pneumonia (Adult) Print Language: Estonian Stand Alone Forms: [employer] Award Info., Patient Portal Info Letter Discharge Order Discharge Orders: Discharge (Routine); Ordered 03/25/25 Ordered By: Víctor Joshi Quality Discharge Quality Measures VTE prophylaxis
== END 2025-03-25 12:49 | disposition home or self-care (01) | DRG 139 ==
LOC: SERX 19:18 → SERHOLD 19:44 → S2NX 03-21 20:10
PROVIDERS: Internal Medicine Cardiovascular Disease; Student in an Organized Health Care Education/Training Program; Admitting Provider Internal Medicine; Emergency Provider Family Medicine; Visit Provider Internal Medicine
DX: J18.9 Pneumonia, unspecified organism (principal); G47.33 Obstructive sleep apnea (adult) (pediatric); I11.0 Hypertensive heart disease with heart failure; D68.51 Activated protein C resistance; N40.0 Benign prostatic hyperplasia without lower urinary tract symptoms; E05.90 Thyrotoxicosis, unspecified without thyrotoxic crisis or storm; E11.40 Type 2 diabetes mellitus with diabetic neuropathy, unspecified; E78.5 Hyperlipidemia, unspecified; I25.10 Atherosclerotic heart disease of native coronary artery without angina pectoris; E87.3 Alkalosis; G25.81 Restless legs syndrome; I50.33 Acute on chronic diastolic (congestive) heart failure; E66.9 Obesity, unspecified; E03.9 Hypothyroidism, unspecified; Z68.39 Body mass index [BMI] 39.0-39.9, adult; Z95.828 Presence of other vascular implants and grafts; N17.9 Acute kidney failure, unspecified; Z86.718 Personal history of other venous thrombosis and embolism; Z79.01 Long term (current) use of anticoagulants; Z56.0 Unemployment, unspecified; Z79.82 Long term (current) use of aspirin; Z79.84 Long term (current) use of oral hypoglycemic drugs; Z79.899 Other long term (current) drug therapy; Z87.442 Personal history of urinary calculi; I77.810 Thoracic aortic ectasia; Z86.711 Personal history of pulmonary embolism
CPT/HCPCS: 36415; 71045; 71275; 80048; 80053; 81001; 82810; 83735; 83880; 84100; 84439; 84443; 84484; 85025; 85610; 85730; 86331; 86635; 87040; 87081; 87811; 93005; 93970; 94660; 96365; 96367; 96368; 96372; 96375; 99152; 99153; 99285; A4649; C1769; C1894; J0171; J0456; J0461; J0696; J1643; J1644; J1938; J2250; J2310; J2371; J2550; J3010; J3475; J3490; J7030; J7040; J7050; Q9967; A9270

== ENCOUNTER 2025-03-26 18:26 | Emergency (ER) | payer MEDICAID, SELFPAY ==
[2025-03-26 18:27] VITALS: BMI 39.4
[2025-03-26 18:56] VITALS: BP 131/83; PULSE 107; RESP 18; TEMP 37.1; O2SAT 95
--- NOTE | 2025-03-26 19:08 | PD.EDWOUND ---
ED Wound/Laceration-RME/HPI General Chief Complaint: Wound/Laceration Stated Complaint: BLEEDING FROM RIGHT INGUINAL AREA S/P ANGIOGRAM ON Time Seen by Provider: 03/26/25 19:04 Arrival date/time: 03/26/25 18:26 49M with extensive PMH including DVT/PE on Xarelto presents to ED with possible bleeding from R inguinal hernia where cath was inserted for angiogram here several days ago during admission. Limitations: no limitations Related Data Home Medications ?Medication ?Instructions ?Recorded ?Confirmed lisinopril 20 mg tablet 20 mg PO BID #0 tabs 08/22/17 03/21/25 metoprolol tartrate 100 mg tablet 100 mg PO BID 03/14/21 03/21/25 metformin 500 mg tablet 500 mg PO HS 06/28/21 03/21/25 ropinirole 0.25 mg tablet 0.25 mg PO HS 10/03/21 03/21/25 amiodarone 200 mg tablet 200 mg PO QDAY 04/05/22 03/21/25 atorvastatin 40 mg tablet 40 mg PO HS 09/04/22 03/21/25 meclizine 25 mg tablet 25 mg PO BID PRN Dizziness 09/04/22 03/21/25 duloxetine 30 mg capsule,delayed 30 mg PO QDAY 10/24/23 03/21/25 release finasteride 5 mg tablet 5 mg PO QDAY 10/24/23 03/21/25 semaglutide 1 mg/dose (4 mg/3 mL) 1.75 mg subcut QWEEK 10/24/23 03/21/25 subcutaneous pen injector (Ozempic) gabapentin 300 mg capsule 300 mg PO TID 08/07/24 03/21/25 albuterol sulfate 90 mcg/actuation 2 puff inhalation Q4H PRN 01/07/25 03/21/25 aerosol inhaler shortness of breath or wheezing allopurinol 100 mg tablet 200 mg PO DAILY 01/07/25 03/21/25 benzonatate 100 mg capsule 200 mg PO TID PRN cough 01/07/25 03/21/25 loratadine 10 mg tablet (Claritin) 10 mg PO QDAY PRN allergic symptoms 01/07/25 03/21/25 multivitamin (Daily Multi-Vitamin 1 tab PO QAM 01/07/25 03/21/25 tablet) ondansetron HCl 4 mg tablet 4 mg PO TID PRN nausea and vomiting 01/07/25 03/21/25 Previous Rx's ?Medication ?Instructions ?Recorded tamsulosin 0.4 mg capsule (Flomax) 0.4 mg PO QDAY #7 caps 08/23/24 rivaroxaban 20 mg tablet (Xarelto) 20 mg PO QDAY #30 tabs 01/28/25 furosemide 40 mg tablet (Lasix) 40 mg PO QAM 1 month #30 tabs 03/25/25 Allergies Allergy/AdvReac Type Severity Reaction Status Date / Time No Known Allergies Allergy Verified 03/26/25 18:29 Review of Systems Review of Systems Systems Reviewed: All systems reviewed, normal except as documented Constitutional Constitutional: Reports system reviewed and no additional complaints, except as documented, Denies fever(s) and Denies headache(s) ENT Ears, Nose, Mouth, and Throat: Denies disequilibrium and Denies headache(s) Cardiovascular Cardiovascular: Reports system reviewed and no additional complaints, except as documented, Denies chest pain and Denies dyspnea Respiratory Respiratory: Reports system reviewed and no additional complaints, except as documented, Denies cough and Denies dyspnea Gastrointestinal Gastrointestinal: Reports system reviewed and no additional complaints, except as documented, Denies abdominal pain, Denies nausea and Denies vomiting Neurologic Neurologic: Reports system reviewed and no additional complaints, except as documented, Denies confusion, Denies disequilibrium and Denies headache(s) Psychiatric Psychiatric: Denies confusion Past Medical History Past Medical History NEUROLOGIC: Negative Neurological Disorders CARDIAC: Positive Cardiac Disorders, Myocardial Infarction, Angina, Coronary Artery Disease, Atherosclerotic Heart Disease, Hypercholesterolemia, Edema, Deep Vein Thrombosis and Hypertension; Negative Congestive Heart Failure RESPIRATORY: Positive Asthma, Pneumonia, Pulmonary Embolism and Sleep Apnea; Negative Chronic Obstructive Pulmonary Disease (COPD) GASTROINTESTINAL: Positive Gastrointestinal Disorders, Gastroesophageal Reflux Disease and Obesity GENITOURINARY: Positive Genitourinary Disorders, Kidney Stones and Benign Prostatic Hyperplasia; Negative Renal Disease MUSCULOSKELETAL: Positive Musculoskeletal Disorders and Gout ENDOCRINE: Positive Endocrine Disorders and Diabetes Mellitus Type 2; Negative Diabetes Mellitus Type 1 HEMATOLOGIC: Positive Blood Disorders and Clotting Problems (HETEROZYGOUS FACTOR V LEIDEN MUTATION); Negative Anemia or Sickle Cell Disease PSYCHO/SOCIAL: Positive Anxiety OTHER HISTORY: Positive Developmental Delay and Falls; Negative Autoimmune Disease, Blood Transfusions, Anesthesia Reactions or Cancer Family History FAMILY HISTORY: Positive Family Cardiac Disorders, Family Cancer and Family Surgery; Negative Family Neurologic Problems, Family Psychiatric Problems, Family Respiratory Disorders, Family Gastrointestinal Problems or Family Anesthesia Reaction Surgical History SURGICAL: Positive Vascular Surgery and Angiogram; Negative Coronary Stent Social History SMOKING STATUS: Never smoker SECOND HAND EXPOSURE: No SUBSTANCE USE: does not use 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 Exam General Limitations: Present no limitations General appearance: Present alert and in no apparent distress Head Head exam: Present atraumatic Eye Eye exam: Present normal appearance, PERRL and EOMI ENT ENT exam: Present normal exam, normal oropharynx and mucous membranes moist Neck Neck exam: Present normal inspection, full ROM and trachea midline Chest Chest inspection: Present normal inspection and symmetric chest wall rise Respiratory Respiratory exam: Present normal lung sounds bilaterally Cardiovascular Cardiovascular exam: Present regular rate, normal rhythm and normal heart sounds Abdominal Exam Abdominal exam: Present soft and normal bowel sounds Extremities Exam Extremities exam: Present full ROM Expanded Lower Extremity Exam Hip/Pelvis exam: Present full ROM, swelling, ecchymosis and other (R inguinal/femoral cath site) Back Exam Back exam: Present normal inspection and full ROM Neurological Exam Neurological exam: Present alert, oriented X3 and CN II-XII intact Psychiatric Psychiatric exam: Present normal affect and normal mood Skin Skin exam: Present warm, dry, intact and normal color Course Quality Measures none Orders Category Date Time Status Wound Care NOW Care 03/26/25 19:05 Active Vital Signs Vital signs: Vital Signs Temperature 98.7 F 03/26/25 18:56 Pulse Rate 107 H 03/26/25 18:56 Respiratory Rate 18 03/26/25 18:56 Blood Pressure 131/83 H 03/26/25 18:56 Pulse Oximetry (%) 95 03/26/25 18:56 Oxygen Delivery Method Room Air 03/26/25 18:56 O2 at 95% on RA and WNLs Wound / Laceration MDM Narrative MDM Narrative:: 49M with extensive PMH including DVT/PE on Xarelto presents to ED with possible bleeding from R inguinal hernia where cath was inserted for angiogram here several days ago during admission. Physical exam with electrical manager reveals bruising and swelling around R cath site. No active bleeding. Scab over entry wound. Patient is afebrile, calm, and alert. Site rebandaged. Reverberatory Furnace Supervisor given. Patient data External records reviewed:: [facility] previous records Clinical information provided by:: patient Social determinants that could affect healthcare access:: none Patient has the following chronic illnesses:: extensive PMH including DVT/PE How is presenting disease/condition affected by chronic disease/condition?: exacerbated by Evaluation data The following diagnostics were reviewed and interpreted by me:: other (specify) (none) Lab and/or radiology exams considered but not ordered:: not ordered Interpretation Summary: n/a Medications / Prescriptions Medications or Prescriptions considered but not ordered:: not ordered Medication administrations:: n/a Consultations Consultation(s) initiated? (list below): No Diagnosis Wound Differential Diagnosis: laceration, abscess, abrasion, avulsion of skin and other (postop exam) Most likely diagnosis given after review of the tests above:: postop exam Admission Indicated Admission indicated?: not indicated Admission Request Was there a request for admission?: No Disposition Plan Disposition Plan: Discharge Discharge Attestation Discharge Attestation: The patient and all family members were given an opportunity to ask questions and understood the discharge instructions. Discharge instructions specifically effects, indications for sooner follow up or return to the emergency department, and the expected course of current diagnosis. Patient condition: Stable Discharge Plan Plan Patient Disposition: HOME (Self Care) Discharge Disposition comment: Stable Prescriptions/Referrals Prescriptions/Med Rec: No Action gabapentin 300 mg capsule 300 mg PO TID lisinopril 20 MG tablet 20 mg PO BID Qty: 0 Patient Comments: PER GHAZALA MORRIS, ONLY TAKES IF SBP >125 metformin 500 mg tablet 500 mg PO HS Patient Comments: TAKE 1 TABLET BY MOUTH EVERY DAY AT BEDTIME FOR DIABETES metoprolol tartrate 100 mg tablet 100 mg PO BID Patient Comments: TAKE 1 TABLET BY MOUTH TWICE A DAY FOR BLOOD PRESSURE ropinirole 0.25 mg Tablet 0.25 mg PO HS Patient Comments: 1-3 HRS PRIOR TO BEDTIME amiodarone 200 mg Tablet 200 mg PO QDAY atorvastatin 40 mg tablet 40 mg PO HS Patient Comments: TAKE 1 TABLET BY MOUTH AT BEDTIME FOR CHOLESTEROL meclizine 25 mg tablet 25 mg PO BID PRN (Reason: Dizziness) Patient Comments: TAKE 1-2 TABLETS BY MOUTH TWICE A DAY NEEDED FOR DIZZINESS tamsulosin [Flomax] 0.4 mg capsule 0.4 mg PO QDAY Qty: 7 0RF Ozempic 1 mg/dose (4 mg/3 mL) pen injector 1.75 mg SUBCUT QWEEK Patient Comments: Rx Instructions: 1 time weekly duloxetine 30 mg capsule,delayed release(DR/EC) 30 mg PO QDAY finasteride 5 mg tablet 5 mg PO QDAY Patient Comments: TAKE 1 TABLET BY MOUTH EVERY DAY benzonatate 100 mg capsule 200 mg PO TID PRN (Reason: cough) allopurinol 100 mg tablet 200 mg PO DAILY Patient Comments: TAKE 2 TABS BY MOUTH 1 TIME A DAY FOR GOUT multivitamin [Daily Multi-Vitamin] Tablet 1 tab PO QAM loratadine [Claritin] 10 mg tablet 10 mg PO QDAY PRN (Reason: allergic symptoms) ondansetron HCl 4 mg tablet 4 mg PO TID PRN (Reason: nausea and vomiting) albuterol sulfate 90 mcg/actuation HFA aerosol inhaler 2 puff INHALATION Q4H PRN (Reason: shortness of breath or wheezing) Patient Comments: TAKE 1-2 PUFFS BY MOUTH EVERY 4 HOURS INHALATION NEEDED Xarelto 20 mg tablet 20 mg PO QDAY Qty: 30 3RF Rx Instructions: must administer with evening meal furosemide [Lasix] 40 mg tablet 40 mg PO QAM 30 Days Qty: 30 0RF Problem List Clinical Impression: Postoperative examination Patient/Caregiver Discharge Instructions Education Materials: ED Wound Check (No Infection) Additional Instructions: Please follow-up with PCP within 24-48 hours and return immediately if symptoms worsen. If any bleeding; compression for 15 min. Print Language: Gabonese Stand Alone Forms: Patient Portal Info Letter RENAE/KARI Supervising Physician RENAE/KARI Supervising Physician: Dr. West
== END 2025-03-26 19:30 | disposition home or self-care (01) ==
PROVIDERS: Emergency Provider Emergency Medicine; PCP Physician Assistant
DX: I97.630 Postprocedural hematoma of a circulatory system organ or structure following a cardiac catheterization (principal); Y84.0 Cardiac catheterization as the cause of abnormal reaction of the patient, or of later complication, without mention of misadventure at the time of the procedure
CPT/HCPCS: 99282

== ENCOUNTER 2025-03-28 22:41 | Emergency (ER) | payer MEDICAID, SELFPAY ==
[2025-03-28 22:42] VITALS: BMI 39.4
[2025-03-28 23:29] VITALS: BP 138/81; PULSE 79; RESP 20; TEMP 36.7; O2SAT 96
--- NOTE | 2025-03-28 23:35 | PD.EDRME ---
Rapid Medical Screening Exam RME Arrival date/time: 03/28/25 22:41 Chief Complaint: General Adult/Misc Complain Time Seen by Provider: 03/28/25 22:47 Vital signs: Vital Signs Temperature 98.1 F 03/28/25 23:29 Pulse Rate 79 03/28/25 23:29 Respiratory Rate 20 03/28/25 23:29 Blood Pressure 138/81 H 03/28/25 23:29 Pulse Oximetry (%) 96 03/28/25 23:29 Oxygen Delivery Method Room Air 03/28/25 23:29 RME Narrative: Patient states his CPAP machine is not working tonight. Requesting to be admitted for CPAP use while he sleeps.
== END 2025-03-29 00:48 | disposition left against medical advice (07) ==
LOC: SERX 23:48
PROVIDERS: Emergency Provider Emergency Medicine; PCP Physician Assistant
DX: Z01.89 Encounter for other specified special examinations (principal); Z53.29 Procedure and treatment not carried out because of patient's decision for other reasons
CPT/HCPCS: 99281

== ENCOUNTER 2025-04-04 19:54 | Emergency (ER) | payer MEDICAID, SELFPAY ==
[2025-04-04 19:55] VITALS: BMI 39.7
[2025-04-04 20:24] VITALS: BP 126/83; PULSE 106; RESP 20; TEMP 36.8; O2SAT 96
--- NOTE | 2025-04-04 20:47 | PD.EDSKIN ---
ED Skin Abcess FB-RME/HPI General Chief complaint: Skin/Abscess/Foreign Body Stated complaint: SUNBURN ALL OVER BODY Time Seen by Provider: 04/04/25 20:29 Source: patient Arrival date/time: 04/04/25 19:54 Mode of arrival: ambulatory Limitations: no limitations RME / HPI RME / HPI narrative: 49-year-old male presents to the ED with a complaint of sunburn to his back, neck, scalp and upper extremities. He states he was working outside with his landlord yesterday and sustained the sunburn. His landlord gave him some aloe vera which he states is not helping much. Related Data Home Medications ?Medication ?Instructions ?Recorded ?Confirmed lisinopril 20 mg tablet 20 mg PO BID #0 tabs 08/22/17 03/21/25 metoprolol tartrate 100 mg tablet 100 mg PO BID 03/14/21 03/21/25 metformin 500 mg tablet 500 mg PO HS 06/28/21 03/21/25 ropinirole 0.25 mg tablet 0.25 mg PO HS 10/03/21 03/21/25 amiodarone 200 mg tablet 200 mg PO QDAY 04/05/22 03/21/25 atorvastatin 40 mg tablet 40 mg PO HS 09/04/22 03/21/25 meclizine 25 mg tablet 25 mg PO BID PRN Dizziness 09/04/22 03/21/25 duloxetine 30 mg capsule,delayed 30 mg PO QDAY 10/24/23 03/21/25 release finasteride 5 mg tablet 5 mg PO QDAY 10/24/23 03/21/25 semaglutide 1 mg/dose (4 mg/3 mL) 1.75 mg subcut QWEEK 10/24/23 03/21/25 subcutaneous pen injector (Ozempic) gabapentin 300 mg capsule 300 mg PO TID 08/07/24 03/21/25 albuterol sulfate 90 mcg/actuation 2 puff inhalation Q4H PRN 01/07/25 03/21/25 aerosol inhaler shortness of breath or wheezing allopurinol 100 mg tablet 200 mg PO DAILY 01/07/25 03/21/25 benzonatate 100 mg capsule 200 mg PO TID PRN cough 01/07/25 03/21/25 loratadine 10 mg tablet (Claritin) 10 mg PO QDAY PRN allergic symptoms 01/07/25 03/21/25 multivitamin (Daily Multi-Vitamin 1 tab PO QAM 01/07/25 03/21/25 tablet) ondansetron HCl 4 mg tablet 4 mg PO TID PRN nausea and vomiting 01/07/25 03/21/25 Previous Rx's ?Medication ?Instructions ?Recorded tamsulosin 0.4 mg capsule (Flomax) 0.4 mg PO QDAY #7 caps 08/23/24 rivaroxaban 20 mg tablet (Xarelto) 20 mg PO QDAY #30 tabs 01/28/25 furosemide 40 mg tablet (Lasix) 40 mg PO QAM 1 month #30 tabs 03/25/25 hydrocortisone 0.5 % topical cream 1 applic topical TID PRN skin 04/04/25 irritation #28.4 grams Allergies Allergy/AdvReac Type Severity Reaction Status Date / Time No Known Allergies Allergy Verified 03/26/25 18:29 Review of Systems Review of Systems Systems Reviewed: All systems reviewed, normal except as documented Past Medical History Past Medical History NEUROLOGIC: Negative Neurological Disorders CARDIAC: Positive Cardiac Disorders, Myocardial Infarction, Angina, Coronary Artery Disease, Atherosclerotic Heart Disease, Hypercholesterolemia, Edema, Deep Vein Thrombosis and Hypertension; Negative Congestive Heart Failure RESPIRATORY: Positive Asthma, Pneumonia, Pulmonary Embolism and Sleep Apnea; Negative Chronic Obstructive Pulmonary Disease (COPD) GASTROINTESTINAL: Positive Gastrointestinal Disorders, Gastroesophageal Reflux Disease and Obesity GENITOURINARY: Positive Genitourinary Disorders, Kidney Stones and Benign Prostatic Hyperplasia; Negative Renal Disease MUSCULOSKELETAL: Positive Musculoskeletal Disorders and Gout ENDOCRINE: Positive Endocrine Disorders and Diabetes Mellitus Type 2; Negative Diabetes Mellitus Type 1 HEMATOLOGIC: Positive Blood Disorders and Clotting Problems (HETEROZYGOUS FACTOR V LEIDEN MUTATION); Negative Anemia or Sickle Cell Disease PSYCHO/SOCIAL: Positive Anxiety OTHER HISTORY: Positive Developmental Delay and Falls; Negative Autoimmune Disease, Blood Transfusions, Anesthesia Reactions or Cancer Family History FAMILY HISTORY: Positive Family Cardiac Disorders, Family Cancer and Family Surgery; Negative Family Neurologic Problems, Family Psychiatric Problems, Family Respiratory Disorders, Family Gastrointestinal Problems or Family Anesthesia Reaction Surgical History SURGICAL: Positive Vascular Surgery and Angiogram; Negative Coronary Stent Social History SMOKING STATUS: Never smoker SECOND HAND EXPOSURE: No SUBSTANCE USE: does not use 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 Mild sunburn noted to bilateral upper extremities, shoulders and upper back as well as scalp. No blistering is noted. General Limitations: Present no limitations General appearance: Present alert and in no apparent distress Course Course Course Narrative: 49-year-old male presents to the ED with a complaint of sunburn to his back, neck, scalp and upper extremities. He states he was working outside with his landlord yesterday and sustained the sunburn. His landlord gave him some aloe vera which he states is not helping much. Alert and oriented 49-year-old male, no acute distress. Mild sunburn noted to bilateral upper extremities, shoulders and upper back as well as scalp. No blistering is noted. Quality Measures none Vital Signs Vital signs: Vital Signs Temperature 98.2 F 04/04/25 20:24 Pulse Rate 106 H 04/04/25 20:24 Respiratory Rate 20 04/04/25 20:24 Blood Pressure 126/83 04/04/25 20:24 Pulse Oximetry (%) 96 04/04/25 20:24 Oxygen Delivery Method Room Air 04/04/25 20:24 Skin / Abscess / Foreign Body MDM Narrative MDM Narrative:: 49-year-old male presents to the ED with a complaint of sunburn to his back, neck, scalp and upper extremities. He states he was working outside with his landlord yesterday and sustained the sunburn. His landlord gave him some aloe vera which he states is not helping much. Alert and oriented 49-year-old male, no acute distress. Mild sunburn noted to bilateral upper extremities, shoulders and upper back as well as scalp. No blistering is noted. Patient data External records reviewed:: None Clinical information provided by:: patient Social determinants that could affect healthcare access:: none Patient has the following chronic illnesses:: Diabetes, CHF, DVT, pulmonary embolism, history of ND, BPH, factor V Leiden mutation How is presenting disease/condition affected by chronic disease/condition?: uneffected by Evaluation data The following diagnostics were reviewed and interpreted by me:: other (specify) (None) Lab and/or radiology exams considered but not ordered:: N/A Interpretation Summary: N/A Medications / Prescriptions Medications or Prescriptions considered but not ordered:: N/A Medication administrations:: N/A Consultations Consultation(s) initiated? (list below): No Diagnosis Skin/Abscess Differential Diagnosis: abscess of skin or subcutaneous tissue, viral exanthem, urticaria, allergic reaction to drug, eczema, insect bites, contact dermatitis and other (Sunburn) Most likely diagnosis given after review of the tests above:: Sunburn, first-degree Admission Indicated Admission indicated?: not indicated Explain why admission is indicated or not indicated:: Patient is stable for discharge Admission Request Was there a request for admission?: No Disposition Plan Disposition Plan: Discharge Discharge Attestation Discharge Attestation: The patient and all family members were given an opportunity to ask questions and understood the discharge instructions. Discharge instructions specifically effects, indications for sooner follow up or return to the emergency department, and the expected course of current diagnosis. Patient condition: Stable Discharge Plan Plan Patient Disposition: HOME (Self Care) Discharge Disposition comment: Stable Prescriptions/Referrals Prescriptions/Med Rec: New hydrocortisone 0.5 % cream 1 applic topical TID PRN (Reason: skin irritation) Qty: 28.4 0RF No Action gabapentin 300 mg capsule 300 mg PO TID lisinopril 20 MG tablet 20 mg PO BID Qty: 0 Patient Comments: PER GHAZALA MORRIS, ONLY TAKES IF SBP >125 metformin 500 mg tablet 500 mg PO HS Patient Comments: TAKE 1 TABLET BY MOUTH EVERY DAY AT BEDTIME FOR DIABETES metoprolol tartrate 100 mg tablet 100 mg PO BID Patient Comments: TAKE 1 TABLET BY MOUTH TWICE A DAY FOR BLOOD PRESSURE ropinirole 0.25 mg Tablet 0.25 mg PO HS Patient Comments: 1-3 HRS PRIOR TO BEDTIME amiodarone 200 mg Tablet 200 mg PO QDAY atorvastatin 40 mg tablet 40 mg PO HS Patient Comments: TAKE 1 TABLET BY MOUTH AT BEDTIME FOR CHOLESTEROL meclizine 25 mg tablet 25 mg PO BID PRN (Reason: Dizziness) Patient Comments: TAKE 1-2 TABLETS BY MOUTH TWICE A DAY NEEDED FOR DIZZINESS tamsulosin [Flomax] 0.4 mg capsule 0.4 mg PO QDAY Qty: 7 0RF Ozempic 1 mg/dose (4 mg/3 mL) pen injector 1.75 mg SUBCUT QWEEK Patient Comments: Suner Rx Instructions: 1 time weekly duloxetine 30 mg capsule,delayed release(DR/EC) 30 mg PO QDAY finasteride 5 mg tablet 5 mg PO QDAY Patient Comments: TAKE 1 TABLET BY MOUTH EVERY DAY benzonatate 100 mg capsule 200 mg PO TID PRN (Reason: cough) allopurinol 100 mg tablet 200 mg PO DAILY Patient Comments: TAKE 2 TABS BY MOUTH 1 TIME A DAY FOR GOUT multivitamin [Daily Multi-Vitamin] Tablet 1 tab PO QAM loratadine [Claritin] 10 mg tablet 10 mg PO QDAY PRN (Reason: allergic symptoms) ondansetron HCl 4 mg tablet 4 mg PO TID PRN (Reason: nausea and vomiting) albuterol sulfate 90 mcg/actuation HFA aerosol inhaler 2 puff INHALATION Q4H PRN (Reason: shortness of breath or wheezing) Patient Comments: TAKE 1-2 PUFFS BY MOUTH EVERY 4 HOURS INHALATION NEEDED Xarelto 20 mg tablet 20 mg PO QDAY Qty: 30 3RF Rx Instructions: must administer with evening meal furosemide [Lasix] 40 mg tablet 40 mg PO QAM 30 Days Qty: 30 0RF Problem List Clinical Impression: Sunburn Patient/Caregiver Discharge Instructions Education Materials: ED Sunburn Additional Instructions: Follow-up with your primary care physician in 24 to 48 hours. Return to the ED for any new or worsening symptoms. Print Language: Romanian Stand Alone Forms: [employer] Award Info., Patient Portal Info Letter PA/PAYMENT MANAGER Supervising Physician PA/PAYMENT MANAGER Supervising Physician: Dr. Winston
== END 2025-04-04 21:56 | disposition home or self-care (01) ==
LOC: SERX 21:40
PROVIDERS: Emergency Provider Emergency Medicine; PCP Physician Assistant
DX: L55.9 Sunburn, unspecified (principal)
CPT/HCPCS: 99281

== ENCOUNTER 2025-04-16 09:47 | Emergency (ER) | payer MEDICAID, SELFPAY ==
[2025-04-16 09:48] VITALS: PULSE 70; O2SAT 98; BMI 39.4
[2025-04-16 10:02] VITALS: BP 129/86; PULSE 69; RESP 18; TEMP 36.9; O2SAT 98
--- NOTE | 2025-04-16 10:07 | PD.EDRME ---
Rapid Medical Screening Exam [facility] Arrival date/time: 04/16/25 09:47 50-year-old male with a history of hypertension, congestive heart failure, type 2 diabetes, presents to the emergency room with a chief complaint of dizziness and lightheadedness x 1 day. Patient also states he had an episode of a nosebleed. Patient is on blood thinners and take Xarelto. I have greeted and performed a focused initial assessment of this patient. A comprehensive ED assessment and evaluation of the patient, analysis of all test results, and completion of the medical decision making process will be conducted by additional ED providers. Chief Complaint: Dizziness Vital signs: Vital Signs Temperature 98.5 F 04/16/25 10:02 Pulse Rate 69 04/16/25 10:02 Respiratory Rate 18 04/16/25 10:02 Blood Pressure 129/86 H 04/16/25 10:02 Pulse Oximetry (%) 98 04/16/25 10:02 Oxygen Delivery Method Room Air 04/16/25 10:02 Vital signs reviewed by provider: Yes
[2025-04-16 10:39] LABS: Collection Type, Urine Clean Catch; RBC,Urine 0 /hpf (0-3); Squamous Epithelial Cell,Urine 0 /hpf (0-5); WBC,Urine 0 /hpf (0-5)
[2025-04-16 10:44] LABS: Bilirubin,Urine Negative (Negative); Blood,Urine Negative (Negative); Clarity,Urine Clear (Clear/Hazy); Color,Urine Lt Yellow (Lt Yel-Yel); Glucose, Urine Negative (Negative); Ketones,Urine Negative (Negative); Leukocyte Esterase,Urine Negative (Negative); Nitrite,Urine Negative (Negative); Protein,Urine Negative (Neg - Trace); Specific Gravity,Urine >= 1.030 (1.001-1.035); Urobilinogen,Urine 0.2 mg/dL (0.0-1.0)
[2025-04-16 10:59] LABS: Bacteria,Urine Rare
[2025-04-16 11:20] LABS: Amphetamine/Methamp Scrn,U Negative (Negative); Barbiturate Screen,Urine Negative (Negative); Benzodiazepines Screen,Urine Negative (Negative); Benzoylecgonine Screen, Ur Negative (Negative); Fentanyl Screen,Urine Negative (Negative); Opiate Screen,Urine Negative (Negative); THC Screen,Urine Negative (Negative)
[2025-04-16 11:25] LABS: Basophils % (Auto) 1 % (0-2.5); Eosinophils # (Auto) 0.1 Thou/mm3 (0.0-0.5); Eosinophils % (Auto) 2 % (0-10); Hematocrit 52.1 % (41.0-53.0); Immature Granulocytes % (Auto) 0 % (0-0); Immature Granulocytes Auto 0.02 Thou/mm3 (0.00-0.00); Lymphocytes # (Auto) 1.7 Thou/mm3 (1.0-4.8); Lymphocytes % (Auto) 29 % (10-50); Mean Corpuscular HGB Conc 32.6 g/dl (31.0-37.0); Mean Corpuscular Hemoglobin 29.4 pg (25.0-35.0); Mean Corpuscular Volume 90 fL (80-100); Monocytes # (Auto) 0.6 Thou/mm3 (0.0-0.8); Monocytes % (Auto) 11 % (0-12); Neutrophils # (Auto) 3.3 Thou/mm3 (1.8-7.7); Neutrophils % (Auto) 58 % (37-80); Nucleated Red Blood Cell % 0 /100 WBC (0); Platelet Count 185 Thou/mm3 (140-440); RDW Standard Deviation 44.2 fL (35.1-43.9); Red Blood Count 5.79 Miln/mm3 (4.50-5.90); White Blood Count 5.8 Thou/mm3 (3.8-10.6)
[2025-04-16 11:33] LABS: Partial Thromboplastin Time 24.5 Seconds (22.0-36.0); Prothrombin Time 10.9 Seconds (9.0-12.2)
[2025-04-16 11:36] LABS: B-Type Natriuretic Peptide 33 pg/mL (0-100)
[2025-04-16 11:46] LABS: Alanine Aminotransferase 23 U/L (10-49); Albumin/Globulin Ratio 1.7 (1.2-2.2); Alkaline Phosphatase 186 U/L (46-116); Anion Gap 12 (7-16); Aspartate Amino Transferase 19 U/L (0-34); BUN/Creatinine Ratio 8 Ratio (12-20); Bilirubin,Total 0.5 mg/dL (0.3-1.2); Blood Urea Nitrogen 9 mg/dL (9-23); Calcium 8.6 mg/dL (8.3-10.6); Calcium (Corrected) 8.6 mg/dL (8.5-10.1); Chloride 106 mMol/L (98-107); Creatinine (Component) 1.1 mg/dL (0.6-1.3); Estimated Creatinine Clearance 90.8 mL/min (>60); Globulin 2.4 gm/dL (2.3-3.5); Glucose 106 mg/dL (74-106); Osmolality,Calculated 285 (275-295); Potassium 4.5 mMol/L (3.4-5.1); Sodium 144 mMol/L (136-145); Total Protein 6.4 gm/dL (5.7-8.2); eGFR > 60 See Note
[2025-04-16 11:48] LABS: Troponin I 0.493 ng/mL (0.0-0.045)
[2025-04-16 14:36] VITALS: BP 122/77; PULSE 71; RESP 18; TEMP 36.8; O2SAT 98
[2025-04-16 14:58] LABS: Troponin I 0.486 ng/mL (0.0-0.045)
--- NOTE | 2025-04-16 17:05 | PD.EDADULT ---
ED General RME/HPI General Chief complaint: Dizziness Stated complaint: DIZZINESS AT HOME, NO TRAUMA, NOSEBLEED Arrival date/time: 04/16/25 09:47 RME / HPI RME / HPI narrative: 04/16/25 09:47 50-year-old male with a history of hypertension, congestive heart failure, type 2 diabetes, presents to the emergency room with a chief complaint of dizziness and lightheadedness x 1 day. Patient also states he had an episode of a nosebleed. Patient is on blood thinners and take Xarelto. I have greeted and performed a focused initial assessment of this patient. A comprehensive ED assessment and evaluation of the patient, analysis of all test results, and completion of the medical decision making process will be conducted by additional ED providers. DR. GERMAIN MAIN ED EVALUATION: 50 year old male with past medical history significant for pulmonary embolism on Xarelto, DVT, status post IVC filter placement history, factor V Leiden mutation, AYLEEN, BPH, hypothyroidism, hypertension, diabetes, HFpEF (EF 55-60%), and CAD presents to the Emergency Department with complaint of epistaxis today with associated light-headedness. He is unsure of which side the epistaxis was and it is hard to tell now. No known allergies and no other allergies that he knows of, he states that he barely leave his home. No other complaints reported at this time. Related Data Home Medications ?Medication ?Instructions ?Recorded ?Confirmed lisinopril 20 mg tablet 20 mg PO BID #0 tabs 08/22/17 03/21/25 metoprolol tartrate 100 mg tablet 100 mg PO BID 03/14/21 03/21/25 metformin 500 mg tablet 500 mg PO HS 06/28/21 03/21/25 ropinirole 0.25 mg tablet 0.25 mg PO HS 10/03/21 03/21/25 amiodarone 200 mg tablet 200 mg PO QDAY 04/05/22 03/21/25 atorvastatin 40 mg tablet 40 mg PO HS 09/04/22 03/21/25 meclizine 25 mg tablet 25 mg PO BID PRN Dizziness 09/04/22 03/21/25 duloxetine 30 mg capsule,delayed 30 mg PO QDAY 10/24/23 03/21/25 release finasteride 5 mg tablet 5 mg PO QDAY 10/24/23 03/21/25 semaglutide 1 mg/dose (4 mg/3 mL) 1.75 mg subcut QWEEK 10/24/23 03/21/25 subcutaneous pen injector (Ozempic) gabapentin 300 mg capsule 300 mg PO TID 08/07/24 03/21/25 albuterol sulfate 90 mcg/actuation 2 puff inhalation Q4H PRN 01/07/25 03/21/25 aerosol inhaler shortness of breath or wheezing allopurinol 100 mg tablet 200 mg PO DAILY 01/07/25 03/21/25 benzonatate 100 mg capsule 200 mg PO TID PRN cough 01/07/25 03/21/25 loratadine 10 mg tablet (Claritin) 10 mg PO QDAY PRN allergic symptoms 01/07/25 03/21/25 multivitamin (Daily Multi-Vitamin 1 tab PO QAM 01/07/25 03/21/25 tablet) ondansetron HCl 4 mg tablet 4 mg PO TID PRN nausea and vomiting 01/07/25 03/21/25 Previous Rx's ?Medication ?Instructions ?Recorded tamsulosin 0.4 mg capsule (Flomax) 0.4 mg PO QDAY #7 caps 08/23/24 rivaroxaban 20 mg tablet (Xarelto) 20 mg PO QDAY #30 tabs 01/28/25 furosemide 40 mg tablet (Lasix) 40 mg PO QAM 1 month #30 tabs 03/25/25 hydrocortisone 0.5 % topical cream 1 applic topical TID PRN skin 04/04/25 irritation #28.4 grams Allergies Allergy/AdvReac Type Severity Reaction Status Date / Time No Known Allergies Allergy Verified 04/16/25 09:51 Review of Systems Review of Systems Systems Reviewed: All systems reviewed, normal except as documented Past Medical History Past Medical History CARDIAC: Positive Cardiac Disorders, Myocardial Infarction, Angina, Coronary Artery Disease, Atherosclerotic Heart Disease, Hypercholesterolemia, Edema, Deep Vein Thrombosis and Hypertension RESPIRATORY: Positive Asthma, Pneumonia, Pulmonary Embolism and Sleep Apnea GASTROINTESTINAL: Positive Gastrointestinal Disorders, Gastroesophageal Reflux Disease and Obesity GENITOURINARY: Positive Genitourinary Disorders, Kidney Stones and Benign Prostatic Hyperplasia MUSCULOSKELETAL: Positive Musculoskeletal Disorders and Gout ENDOCRINE: Positive Endocrine Disorders and Diabetes Mellitus Type 2 HEMATOLOGIC: Positive Blood Disorders and Clotting Problems (HETEROZYGOUS FACTOR V LEIDEN MUTATION) PSYCHO/SOCIAL: Positive Anxiety OTHER HISTORY: Positive Developmental Delay and Falls Family History FAMILY HISTORY: Positive Family Cardiac Disorders, Family Cancer and Family Surgery Surgical History SURGICAL: Positive Vascular Surgery and Angiogram Social History SMOKING STATUS: Never smoker SECOND HAND EXPOSURE: No SUBSTANCE USE: does not use ALCOHOL: Never 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 His shirts has a blood stain on the left side. HEENT: NC, AT. MMM. EOMI, clear conjunctiva, oropharynx clear. NECK: Supple without lymphadenopathy. No stiffness or restricted ROM. HEART: Normal rate and regular rhythm, normal S1/S1, no m/r/g LUNGS: CTAB, moving air well. No crackles or wheezes are heard. ABDOMEN: Soft, nontender, nondistended with good bowel sounds heard. BACK: No midline C/T/L spine pain or deformity, No CVAT, no obvious deformity. EXTREMITIES: Without cyanosis, clubbing or edema. MUSCULOSKELETAL: FROM of all major joints, no chest tenderness NEUROLOGICAL: Grossly nonfocal. Alert and oriented, moving all 4 extremities. CN not formally tested but appear grossly intact. Observed to ambulate with normal gait. Skin: Warm and dry without any rash. Course Quality Measures none Orders Category Date Time Status EKG (ED ONLY) *Do not use* NOW Care 04/16/25 10:06 Completed EKG (ED Only) Stat Exams 04/16/25 10:06 Ordered B-Type Natriuretic Peptide Stat Lab 04/16/25 11:05 Completed CBC Stat Lab 04/16/25 11:05 Completed Comprehensive Metabolic Panel Stat Lab 04/16/25 11:05 Completed Drug Screen,Urine Stat Lab 04/16/25 10:24 Completed Partial Thromboplastin Time Stat Lab 04/16/25 11:05 Completed Prothrombin Time with INR Stat Lab 04/16/25 11:05 Completed Troponin I Stat Lab 04/16/25 11:05 Completed Troponin I Stat Lab 04/16/25 14:24 Completed Urinalysis Stat Lab 04/16/25 10:24 Completed Vital Signs Vital signs: Vital Signs Temperature 98.5 F 04/16/25 10:02 Pulse Rate 69 04/16/25 10:02 Respiratory Rate 18 04/16/25 10:02 Blood Pressure 129/86 H 04/16/25 10:02 Pulse Oximetry (%) 98 04/16/25 10:02 Oxygen Delivery Method Room Air 04/16/25 10:02 Discharge Plan Plan Patient Disposition: HOME (Self Care) Prescriptions/Referrals Prescriptions/Med Rec: No Action gabapentin 300 mg capsule 300 mg PO TID lisinopril 20 MG tablet 20 mg PO BID Qty: 0 Patient Comments: PER ROOMATE ALEXANDRA, ONLY TAKES IF SBP >125 metformin 500 mg tablet 500 mg PO HS Patient Comments: TAKE 1 TABLET BY MOUTH EVERY DAY AT BEDTIME FOR DIABETES metoprolol tartrate 100 mg tablet 100 mg PO BID Patient Comments: TAKE 1 TABLET BY MOUTH TWICE A DAY FOR BLOOD PRESSURE ropinirole 0.25 mg Tablet 0.25 mg PO HS Patient Comments: 1-3 HRS PRIOR TO BEDTIME amiodarone 200 mg Tablet 200 mg PO QDAY atorvastatin 40 mg tablet 40 mg PO HS Patient Comments: TAKE 1 TABLET BY MOUTH AT BEDTIME FOR CHOLESTEROL meclizine 25 mg tablet 25 mg PO BID PRN (Reason: Dizziness) Patient Comments: TAKE 1-2 TABLETS BY MOUTH TWICE A DAY NEEDED FOR DIZZINESS tamsulosin [Flomax] 0.4 mg capsule 0.4 mg PO QDAY Qty: 7 0RF Ozempic 1 mg/dose (4 mg/3 mL) pen injector 1.75 mg SUBCUT QWEEK Patient Comments: Rx Instructions: 1 time weekly duloxetine 30 mg capsule,delayed release(DR/EC) 30 mg PO QDAY finasteride 5 mg tablet 5 mg PO QDAY Patient Comments: TAKE 1 TABLET BY MOUTH EVERY DAY benzonatate 100 mg capsule 200 mg PO TID PRN (Reason: cough) allopurinol 100 mg tablet 200 mg PO DAILY Patient Comments: TAKE 2 TABS BY MOUTH 1 TIME A DAY FOR GOUT multivitamin [Daily Multi-Vitamin] Tablet 1 tab PO QAM loratadine [Claritin] 10 mg tablet 10 mg PO QDAY PRN (Reason: allergic symptoms) ondansetron HCl 4 mg tablet 4 mg PO TID PRN (Reason: nausea and vomiting) albuterol sulfate 90 mcg/actuation HFA aerosol inhaler 2 puff INHALATION Q4H PRN (Reason: shortness of breath or wheezing) Patient Comments: TAKE 1-2 PUFFS BY MOUTH EVERY 4 HOURS INHALATION NEEDED Xarelto 20 mg tablet 20 mg PO QDAY Qty: 30 3RF Rx Instructions: must administer with evening meal furosemide [Lasix] 40 mg tablet 40 mg PO QAM 30 Days Qty: 30 0RF hydrocortisone 0.5 % cream 1 applic topical TID PRN (Reason: skin irritation) Qty: 28.4 0RF Referrals: Akila Diaz PA-C [Primary Care Provider] - In 1 week Problem List Clinical Impression: Acute anterior epistaxis Patient/Caregiver Discharge Instructions Education Materials: ED Epistaxis (Adult) Additional Instructions: Follow-up your primary doctor as need. You can return to the emergency department sooner if symptoms worsen or for any new or concerning issues. Print Language: Mold[place] Stand Alone Forms: [employer] Award Info., Patient Portal Info Letter MDM Narrative [facility] hospital course: I, Sarah Alegria am scribing for and in the presence of Dr. Germain. Clinical Information Provided by patient Medical Records Reviewed [facility] Meds/Rx Considered, not Ordered None Labs/Rad/Tests considered, not Ordered None Chronic Illness/Social Conditions Add or document further as needed: pulmonary embolism on Xarelto, DVT, status post IVC filter placement history, factor V Leiden mutation, AYLEEN, BPH, hypothyroidism, hypertension, diabetes, HFpEF (EF 55-60%), and CAD EKG EKG not done Lab Interpretation Labs: interpreted by ak Lab(s) interpretation(s): Troponin was 0.493 and second trop was 0.486; reviewed EMR and that is baseline. Imaging Imaging interpretation: none Medication Administration(s) none Diagnosis Differential diagnosis: epistaxis, trauma, nasal inflammation, and foreign bodies Most likely dx, and/or detailed dx discussion: Acute anterior epistaxis Dispositon Disposition: Discharge Home
== END 2025-04-16 18:16 | disposition home or self-care (01) ==
PROVIDERS: Nurse Practitioner Family; Emergency Provider Emergency Medicine; PCP Physician Assistant
DX: R04.0 Epistaxis (principal); R42 Dizziness and giddiness; Z86.718 Personal history of other venous thrombosis and embolism; D68.51 Activated protein C resistance; G47.33 Obstructive sleep apnea (adult) (pediatric); I11.0 Hypertensive heart disease with heart failure; I50.32 Chronic diastolic (congestive) heart failure; I25.10 Atherosclerotic heart disease of native coronary artery without angina pectoris; E11.9 Type 2 diabetes mellitus without complications; E03.9 Hypothyroidism, unspecified; N40.0 Benign prostatic hyperplasia without lower urinary tract symptoms
CPT/HCPCS: 36415; 80053; 80307; 81001; 83880; 84484; 85025; 85610; 85730; 93005; 99283

== ENCOUNTER 2025-04-17 21:34 | Emergency (ER) | payer MEDICAID, SELFPAY ==
[2025-04-17 21:37] VITALS: BMI 39.4
[2025-04-17 21:55] VITALS: BP 120/82; PULSE 81; RESP 20; TEMP 37; O2SAT 96
--- NOTE | 2025-04-17 22:10 | PD.EDSKIN ---
ED Skin Abcess FB-RME/HPI General Chief complaint: General Adult/Misc Complain Stated complaint: PAIN TO R INNER THIGH SITE OF ANGIOGRAM Time Seen by Provider: 04/17/25 22:07 Arrival date/time: 04/17/25 21:34 50M with extensive PMH including DVT/PE on Xarelto presents to ED with R inner thigh pain at angio cath site that was done 5 days ago. Limitations: no limitations Related Data Home Medications ?Medication ?Instructions ?Recorded ?Confirmed lisinopril 20 mg tablet 20 mg PO BID #0 tabs 08/22/17 03/21/25 metoprolol tartrate 100 mg tablet 100 mg PO BID 03/14/21 03/21/25 metformin 500 mg tablet 500 mg PO HS 06/28/21 03/21/25 ropinirole 0.25 mg tablet 0.25 mg PO HS 10/03/21 03/21/25 amiodarone 200 mg tablet 200 mg PO QDAY 04/05/22 03/21/25 atorvastatin 40 mg tablet 40 mg PO HS 09/04/22 03/21/25 meclizine 25 mg tablet 25 mg PO BID PRN Dizziness 09/04/22 03/21/25 duloxetine 30 mg capsule,delayed 30 mg PO QDAY 10/24/23 03/21/25 release finasteride 5 mg tablet 5 mg PO QDAY 10/24/23 03/21/25 semaglutide 1 mg/dose (4 mg/3 mL) 1.75 mg subcut QWEEK 10/24/23 03/21/25 subcutaneous pen injector (Ozempic) gabapentin 300 mg capsule 300 mg PO TID 08/07/24 03/21/25 albuterol sulfate 90 mcg/actuation 2 puff inhalation Q4H PRN 01/07/25 03/21/25 aerosol inhaler shortness of breath or wheezing allopurinol 100 mg tablet 200 mg PO DAILY 01/07/25 03/21/25 benzonatate 100 mg capsule 200 mg PO TID PRN cough 01/07/25 03/21/25 loratadine 10 mg tablet (Claritin) 10 mg PO QDAY PRN allergic symptoms 01/07/25 03/21/25 multivitamin (Daily Multi-Vitamin 1 tab PO QAM 01/07/25 03/21/25 tablet) ondansetron HCl 4 mg tablet 4 mg PO TID PRN nausea and vomiting 01/07/25 03/21/25 Previous Rx's ?Medication ?Instructions ?Recorded tamsulosin 0.4 mg capsule (Flomax) 0.4 mg PO QDAY #7 caps 08/23/24 rivaroxaban 20 mg tablet (Xarelto) 20 mg PO QDAY #30 tabs 01/28/25 furosemide 40 mg tablet (Lasix) 40 mg PO QAM 1 month #30 tabs 03/25/25 hydrocortisone 0.5 % topical cream 1 applic topical TID PRN skin 04/04/25 irritation #28.4 grams Allergies Allergy/AdvReac Type Severity Reaction Status Date / Time No Known Allergies Allergy Verified 04/17/25 21:40 Review of Systems Review of Systems Systems Reviewed: All systems reviewed, normal except as documented Constitutional Constitutional: Reports system reviewed and no additional complaints, except as documented, Denies fever(s) and Denies headache(s) ENT Ears, Nose, Mouth, and Throat: Denies disequilibrium and Denies headache(s) Cardiovascular Cardiovascular: Reports system reviewed and no additional complaints, except as documented, Denies chest pain and Denies dyspnea Respiratory Respiratory: Reports system reviewed and no additional complaints, except as documented, Denies cough and Denies dyspnea Gastrointestinal Gastrointestinal: Reports system reviewed and no additional complaints, except as documented, Denies abdominal pain, Denies nausea and Denies vomiting Integumentary/Breasts Skin/Breast: Reports as per HPI and Reports skin pain Neurologic Neurologic: Reports system reviewed and no additional complaints, except as documented, Denies confusion, Denies disequilibrium and Denies headache(s) Psychiatric Psychiatric: Denies confusion Past Medical History Past Medical History NEUROLOGIC: Negative Neurological Disorders CARDIAC: Positive Cardiac Disorders, Myocardial Infarction, Angina, Coronary Artery Disease, Atherosclerotic Heart Disease, Hypercholesterolemia, Edema, Deep Vein Thrombosis and Hypertension; Negative Congestive Heart Failure RESPIRATORY: Positive Asthma, Pneumonia, Pulmonary Embolism and Sleep Apnea; Negative Chronic Obstructive Pulmonary Disease (COPD) GASTROINTESTINAL: Positive Gastrointestinal Disorders, Gastroesophageal Reflux Disease and Obesity GENITOURINARY: Positive Genitourinary Disorders, Kidney Stones and Benign Prostatic Hyperplasia; Negative Renal Disease MUSCULOSKELETAL: Positive Musculoskeletal Disorders and Gout ENDOCRINE: Positive Endocrine Disorders and Diabetes Mellitus Type 2; Negative Diabetes Mellitus Type 1 HEMATOLOGIC: Positive Blood Disorders and Clotting Problems (HETEROZYGOUS FACTOR V LEIDEN MUTATION); Negative Anemia or Sickle Cell Disease PSYCHO/SOCIAL: Positive Anxiety OTHER HISTORY: Positive Developmental Delay and Falls; Negative Autoimmune Disease, Blood Transfusions, Anesthesia Reactions or Cancer Family History FAMILY HISTORY: Positive Family Cardiac Disorders, Family Cancer and Family Surgery; Negative Family Neurologic Problems, Family Psychiatric Problems, Family Respiratory Disorders, Family Gastrointestinal Problems or Family Anesthesia Reaction Surgical History SURGICAL: Positive Vascular Surgery and Angiogram; Negative Coronary Stent Social History SMOKING STATUS: Never smoker SECOND HAND EXPOSURE: No SUBSTANCE USE: does not use 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: [employer] ED Exam General Limitations: Present no limitations General appearance: Present alert and in no apparent distress Head Head exam: Present atraumatic Eye Eye exam: Present normal appearance, PERRL and EOMI ENT ENT exam: Present normal exam, normal oropharynx and mucous membranes moist Neck Neck exam: Present normal inspection, full ROM and trachea midline Chest Chest inspection: Present normal inspection and symmetric chest wall rise Respiratory Respiratory exam: Present normal lung sounds bilaterally Cardiovascular Cardiovascular exam: Present regular rate, normal rhythm and normal heart sounds Abdominal Exam Abdominal exam: Present soft and normal bowel sounds Extremities Exam Extremities exam: Present normal inspection and full ROM Back Exam Back exam: Present normal inspection and full ROM Neurological Exam Neurological exam: Present alert, oriented X3 and CN II-XII intact Psychiatric Psychiatric exam: Present normal affect and normal mood Skin Skin exam: Present warm, dry, intact and normal color Course Quality Measures none Orders Category Date Time Status HYDROcodone*/APAP 5/325 [[place] 5/325] Med 04/17/25 22:07 Discontinued 1 tab PO X1 ONE Vital Signs Vital signs: Vital Signs Temperature 98.6 F 04/17/25 21:55 Pulse Rate 81 04/17/25 21:55 Respiratory Rate 20 04/17/25 21:55 Blood Pressure 120/82 04/17/25 21:55 Pulse Oximetry (%) 96 04/17/25 21:55 Oxygen Delivery Method Room Air 04/17/25 21:55 O2 at 96% on RA and WNLs Skin / Abscess / Foreign Body MDM Narrative MDM Narrative:: 50M with extensive PMH including DVT/PE on Xarelto presents to ED with R inner thigh pain at angio cath site that was done 5 days ago. 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 Gait normal. Patient is afebrile, calm, and alert. Likely post-cath pain. Patient data External records reviewed:: [facility] previous records Clinical information provided by:: patient Social determinants that could affect healthcare access:: none Patient has the following chronic illnesses:: DVT/PE on Xarelto How is presenting disease/condition affected by chronic disease/condition?: exacerbated by Evaluation data The following diagnostics were reviewed and interpreted by me:: other (specify) (none) Lab and/or radiology exams considered but not ordered:: not ordered Interpretation Summary: n/a Medications / Prescriptions Medications or Prescriptions considered but not ordered:: ordered Medication administrations:: Medication Administration History Discontinued Medications Hydrocodone Bitart/Acetaminophen (Hydrocodone/Apap 5/325 Tablet) 1 tab PO X1 ONE Stop: 04/17/25 22:08 above Consultations Consultation(s) initiated? (list below): No Diagnosis Skin/Abscess Differential Diagnosis: abscess of skin or subcutaneous tissue, viral exanthem, dermatophytosis, urticaria, herpes zoster, allergic reaction to drug, cellulitis, eczema, insect bites, impetigo, contact dermatitis and other (pain at injection site) Most likely diagnosis given after review of the tests above:: pain at injection site Admission Indicated Admission indicated?: not indicated Admission Request Was there a request for admission?: No Disposition Plan Disposition Plan: Discharge Discharge Attestation Discharge Attestation: The patient and all family members were given an opportunity to ask questions and understood the discharge instructions. Discharge instructions specifically effects, indications for sooner follow up or return to the emergency department, and the expected course of current diagnosis. Patient condition: Stable Discharge Plan Plan Patient Disposition: HOME (Self Care) Discharge Disposition comment: Stable Prescriptions/Referrals Prescriptions/Med Rec: No Action gabapentin 300 mg capsule 300 mg PO TID lisinopril 20 MG tablet 20 mg PO BID Qty: 0 Patient Comments: PER GHAZALA MORRIS, ONLY TAKES IF SBP >125 metformin 500 mg tablet 500 mg PO HS Patient Comments: TAKE 1 TABLET BY MOUTH EVERY DAY AT BEDTIME FOR DIABETES metoprolol tartrate 100 mg tablet 100 mg PO BID Patient Comments: TAKE 1 TABLET BY MOUTH TWICE A DAY FOR BLOOD PRESSURE ropinirole 0.25 mg Tablet 0.25 mg PO HS Patient Comments: 1-3 HRS PRIOR TO BEDTIME amiodarone 200 mg Tablet 200 mg PO QDAY atorvastatin 40 mg tablet 40 mg PO HS Patient Comments: TAKE 1 TABLET BY MOUTH AT BEDTIME FOR CHOLESTEROL meclizine 25 mg tablet 25 mg PO BID PRN (Reason: Dizziness) Patient Comments: TAKE 1-2 TABLETS BY MOUTH TWICE A DAY NEEDED FOR DIZZINESS tamsulosin [Flomax] 0.4 mg capsule 0.4 mg PO QDAY Qty: 7 0RF Ozempic 1 mg/dose (4 mg/3 mL) pen injector 1.75 mg SUBCUT QWEEK Patient Comments: [place] Rx Instructions: 1 time weekly duloxetine 30 mg capsule,delayed release(DR/EC) 30 mg PO QDAY finasteride 5 mg tablet 5 mg PO QDAY Patient Comments: TAKE 1 TABLET BY MOUTH EVERY DAY benzonatate 100 mg capsule 200 mg PO TID PRN (Reason: cough) allopurinol 100 mg tablet 200 mg PO DAILY Patient Comments: TAKE 2 TABS BY MOUTH 1 TIME A DAY FOR GOUT multivitamin [Daily Multi-Vitamin] Tablet 1 tab PO QAM loratadine [Claritin] 10 mg tablet 10 mg PO QDAY PRN (Reason: allergic symptoms) ondansetron HCl 4 mg tablet 4 mg PO TID PRN (Reason: nausea and vomiting) albuterol sulfate 90 mcg/actuation HFA aerosol inhaler 2 puff INHALATION Q4H PRN (Reason: shortness of breath or wheezing) Patient Comments: TAKE 1-2 PUFFS BY MOUTH EVERY 4 HOURS INHALATION NEEDED Xarelto 20 mg tablet 20 mg PO QDAY Qty: 30 3RF Rx Instructions: must administer with evening meal furosemide [Lasix] 40 mg tablet 40 mg PO QAM 30 Days Qty: 30 0RF hydrocortisone 0.5 % cream 1 applic topical TID PRN (Reason: skin irritation) Qty: 28.4 0RF Problem List Clinical Impression: Pain at injection site Patient/Caregiver Discharge Instructions Education Materials: ED Pain, Acute, Uncertain Cause Additional Instructions: Please follow-up with PCP within 24-48 hours and return immediately if symptoms worsen. Print Language: [place] Island[place] Stand Alone Forms: Patient Portal Info Letter RENAE/KARI Supervising Physician RENAE/KARI Supervising Physician: Dr. West
[2025-04-17] MEDS: HYDROcodone/APAP 5/325 TABLET 1 TAB PO (22:12)
== END 2025-04-18 01:33 | disposition home or self-care (01) ==
LOC: SERX 23:05
PROVIDERS: Emergency Provider Emergency Medicine; PCP Physician Assistant
DX: M79.651 Pain in right thigh (principal); G89.18 Other acute postprocedural pain
CPT/HCPCS: 99283; A9270

== ENCOUNTER → 2025-04-21 | Outpatient (CLI) | payer MEDICAID, SELFPAY ==
--- NOTE | 2025-04-21 15:00 | XR_ITS ---
Examination: CT chest, without intravenous contrast. Sagittal and coronal 2-D reconstructions. Exam date and time: April 21, 2025 1532 hours Comparison March 21, 2025 INDICATIONS: Coughing choking this week CTDI:vol (mGy) 14.8 DLP: (mGycm) 512 Technique: Multiple 3.0 mm axial sections of the chest to been obtained. Bone and lung density settings are obtained. Sagittal and coronal 2-D reconstructions have been obtained. Low dose protocols were performed. One or more of the following dose reduction techniques were used; automated exposure control, adjustment of the mA and/or KV according to patient size, use of iterative reconstruction technique. Findings: AP dimension ascending thoracic aorta 4.5 cm Pulmonary artery segments are not enlarged Mild enlargement cardiac contour No paratracheal tracheobronchial or bronchopulmonary adenopathy No focal liver or splenic lesions No hydronephrosis Contracted gallbladder IMPRESSION: Mild aneurysmal dilatation ascending thoracic aorta No mediastinal lymphadenopathy No pneumonia or pulmonary edema or pleural disease
== END | disposition home or self-care (01) ==
PROVIDERS: PCP Physician Assistant; Referring Provider Internal Medicine; Visit Provider Internal Medicine
DX: I71.21 Aneurysm of the ascending aorta, without rupture (principal); R91.8 Other nonspecific abnormal finding of lung field; R07.1 Chest pain on breathing; J44.1 Chronic obstructive pulmonary disease with (acute) exacerbation
CPT/HCPCS: 71250

== ENCOUNTER 2025-04-23 11:22 | Emergency (ER) | payer MEDICAID, SELFPAY ==
[2025-04-23 11:24] VITALS: BP 140/88; PULSE 100; RESP 16; TEMP 37.2; O2SAT 95
[2025-04-23 11:29] VITALS: PULSE 102; RESP 18; O2SAT 95; BMI 40.9
--- NOTE | 2025-04-23 11:30 | EKG_ITS ---
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
--- NOTE | 2025-04-23 11:31 | PD.EDNV ---
Nausea/Vomit./Diarrhea-RME/HPI General Chief complaint: Nausea/Vomiting/Diarrhea Stated complaint: N/V Time Seen by Provider: 04/23/25 11:28 Arrival date/time: 04/23/25 11:22 Mode of arrival: EMS Limitations: no limitations RME / HPI RME / HPI Narrative: 60-year-old male was brought to emergency department by EMS for nausea and vomiting onset yesterday. He estimated about 10 times nonbloody nonbilious emesis. His last bowel movement was yesterday reportedly normal. No known sick contacts. No out of country travel. No recent use of antibiotics. No fever. Reports generalized pain. Related Data Home Medications ?Medication ?Instructions ?Recorded ?Confirmed lisinopril 20 mg tablet 20 mg PO BID #0 tabs 08/22/17 03/21/25 metoprolol tartrate 100 mg tablet 100 mg PO BID 03/14/21 03/21/25 metformin 500 mg tablet 500 mg PO HS 06/28/21 03/21/25 ropinirole 0.25 mg tablet 0.25 mg PO HS 10/03/21 03/21/25 amiodarone 200 mg tablet 200 mg PO QDAY 04/05/22 03/21/25 atorvastatin 40 mg tablet 40 mg PO HS 09/04/22 03/21/25 meclizine 25 mg tablet 25 mg PO BID PRN Dizziness 09/04/22 03/21/25 duloxetine 30 mg capsule,delayed 30 mg PO QDAY 10/24/23 03/21/25 release finasteride 5 mg tablet 5 mg PO QDAY 10/24/23 03/21/25 semaglutide 1 mg/dose (4 mg/3 mL) 1.75 mg subcut QWEEK 10/24/23 03/21/25 subcutaneous pen injector (Ozempic) gabapentin 300 mg capsule 300 mg PO TID 08/07/24 03/21/25 albuterol sulfate 90 mcg/actuation 2 puff inhalation Q4H PRN 01/07/25 03/21/25 aerosol inhaler shortness of breath or wheezing allopurinol 100 mg tablet 200 mg PO DAILY 01/07/25 03/21/25 benzonatate 100 mg capsule 200 mg PO TID PRN cough 01/07/25 03/21/25 loratadine 10 mg tablet (Claritin) 10 mg PO QDAY PRN allergic symptoms 01/07/25 03/21/25 multivitamin (Daily Multi-Vitamin 1 tab PO QAM 01/07/25 03/21/25 tablet) ondansetron HCl 4 mg tablet 4 mg PO TID PRN nausea and vomiting 01/07/25 03/21/25 Previous Rx's ?Medication ?Instructions ?Recorded tamsulosin 0.4 mg capsule (Flomax) 0.4 mg PO QDAY #7 caps 08/23/24 rivaroxaban 20 mg tablet (Xarelto) 20 mg PO QDAY #30 tabs 01/28/25 furosemide 40 mg tablet (Lasix) 40 mg PO QAM 1 month #30 tabs 03/25/25 hydrocortisone 0.5 % topical cream 1 applic topical TID PRN skin 04/04/25 irritation #28.4 grams Allergies Allergy/AdvReac Type Severity Reaction Status Date / Time No Known Allergies Allergy Verified 04/17/25 21:40 Review of Systems Review of Systems Systems Reviewed: All systems reviewed, normal except as documented ED Exam General Limitations: Present no limitations Head Head exam: Present atraumatic and normocephalic Eye Eye exam: Present normal appearance ENT ENT exam: Present normal exam Neck Neck exam: Present normal inspection Chest Chest inspection: Present normal inspection Respiratory Respiratory exam: Present normal lung sounds bilaterally; Absent respiratory distress Cardiovascular Cardiovascular exam: Present regular rate and normal rhythm Abdominal Exam Abdominal exam: Present soft, distention and hyperactive bowel sounds; Absent tenderness or guarding Extremities Exam Extremities exam: Present normal inspection Back Exam Back exam: Present normal inspection Neurological Exam Neurological exam: Present alert, oriented X3, CN II-XII intact and normal gait Psychiatric Psychiatric exam: Present normal affect Skin Skin exam: Present warm and dry Course Orders Category Date Time Status EKG (ED ONLY) *Do not use* NOW Care 04/23/25 11:30 Active EKG (ED Only) Stat Exams 04/23/25 11:30 Ordered CBC Stat Lab 04/23/25 11:30 Ordered CMP [Comprehensive Metabolic Panel] Stat Lab 04/23/25 11:30 Ordered Lipase Stat Lab 04/23/25 11:30 Ordered Troponin I Stat Lab 04/23/25 11:30 Ordered *1000mL Wide Open x1 Med 04/23/25 11:31 Ordered Sodium Chloride 0.9% 1000 ml [Ns] 1,000 ml IV 999 mls/hr Vital Signs Vital signs: Vital Signs Temperature 98.9 F 04/23/25 11:24 Pulse Rate 100 04/23/25 11:24 Respiratory Rate 16 04/23/25 11:24 Blood Pressure 140/88 H 04/23/25 11:24 Pulse Oximetry (%) 95 04/23/25 11:24 Oxygen Delivery Method Room Air 04/23/25 11:24 Discharge Plan Prescriptions/Referrals Prescriptions/Med Rec: No Action gabapentin 300 mg capsule 300 mg PO TID lisinopril 20 MG tablet 20 mg PO BID Qty: 0 Patient Comments: PER ROOMATE ALEXANDRA, ONLY TAKES IF SBP >125 metformin 500 mg tablet 500 mg PO HS Patient Comments: TAKE 1 TABLET BY MOUTH EVERY DAY AT BEDTIME FOR DIABETES metoprolol tartrate 100 mg tablet 100 mg PO BID Patient Comments: TAKE 1 TABLET BY MOUTH TWICE A DAY FOR BLOOD PRESSURE ropinirole 0.25 mg Tablet 0.25 mg PO HS Patient Comments: 1-3 HRS PRIOR TO BEDTIME amiodarone 200 mg Tablet 200 mg PO QDAY atorvastatin 40 mg tablet 40 mg PO HS Patient Comments: TAKE 1 TABLET BY MOUTH AT BEDTIME FOR CHOLESTEROL meclizine 25 mg tablet 25 mg PO BID PRN (Reason: Dizziness) Patient Comments: TAKE 1-2 TABLETS BY MOUTH TWICE A DAY NEEDED FOR DIZZINESS tamsulosin [Flomax] 0.4 mg capsule 0.4 mg PO QDAY Qty: 7 0RF Ozempic 1 mg/dose (4 mg/3 mL) pen injector 1.75 mg SUBCUT QWEEK Patient Comments: Rx Instructions: 1 time weekly duloxetine 30 mg capsule,delayed release(DR/EC) 30 mg PO QDAY finasteride 5 mg tablet 5 mg PO QDAY Patient Comments: TAKE 1 TABLET BY MOUTH EVERY DAY benzonatate 100 mg capsule 200 mg PO TID PRN (Reason: cough) allopurinol 100 mg tablet 200 mg PO DAILY Patient Comments: TAKE 2 TABS BY MOUTH 1 TIME A DAY FOR GOUT multivitamin [Daily Multi-Vitamin] Tablet 1 tab PO QAM loratadine [Claritin] 10 mg tablet 10 mg PO QDAY PRN (Reason: allergic symptoms) ondansetron HCl 4 mg tablet 4 mg PO TID PRN (Reason: nausea and vomiting) albuterol sulfate 90 mcg/actuation HFA aerosol inhaler 2 puff INHALATION Q4H PRN (Reason: shortness of breath or wheezing) Patient Comments: TAKE 1-2 PUFFS BY MOUTH EVERY 4 HOURS INHALATION NEEDED Xarelto 20 mg tablet 20 mg PO QDAY Qty: 30 3RF Rx Instructions: must administer with evening meal furosemide [Lasix] 40 mg tablet 40 mg PO QAM 30 Days Qty: 30 0RF hydrocortisone 0.5 % cream 1 applic topical TID PRN (Reason: skin irritation) Qty: 28.4 0RF Patient/Caregiver Discharge Instructions Print Language: Romanian
[2025-04-23] MEDS: SODIUM CHLORIDE 0.9% 1000 ML 1,000 ML 999 ML IV (11:55)
[2025-04-23 11:59] LABS: Basophils % (Auto) 0 % (0-2.5); Eosinophils # (Auto) 0.1 Thou/mm3 (0.0-0.5); Eosinophils % (Auto) 1 % (0-10); Hemoglobin 18.2 g/dL (13.5-16.0); Immature Granulocytes % (Auto) 0 % (0-0); Immature Granulocytes Auto 0.02 Thou/mm3 (0.00-0.00); Lymphocytes # (Auto) 0.5 Thou/mm3 (1.0-4.8); Lymphocytes % (Auto) 6 % (10-50); Mean Corpuscular HGB Conc 33.1 g/dl (31.0-37.0); Mean Corpuscular Hemoglobin 29.5 pg (25.0-35.0); Mean Corpuscular Volume 89 fL (80-100); Monocytes # (Auto) 0.4 Thou/mm3 (0.0-0.8); Monocytes % (Auto) 6 % (0-12); Neutrophils # (Auto) 6.9 Thou/mm3 (1.8-7.7); Neutrophils % (Auto) 87 % (37-80); Nucleated Red Blood Cell % 0 /100 WBC (0); Platelet Count 225 Thou/mm3 (140-440); RDW Standard Deviation 44.4 fL (35.1-43.9); Red Blood Count 6.16 Miln/mm3 (4.50-5.90); White Blood Count 7.9 Thou/mm3 (3.8-10.6)
[2025-04-23 12:30] LABS: Alanine Aminotransferase 25 U/L (10-49); Albumin, Serum 4.1 gm/dL (3.5-5.0); Albumin/Globulin Ratio 1.7 (1.2-2.2); Alkaline Phosphatase 209 U/L (46-116); Anion Gap 10 (7-16); BUN/Creatinine Ratio 12 Ratio (12-20); Bilirubin,Total 0.9 mg/dL (0.3-1.2); Blood Urea Nitrogen 14 mg/dL (9-23); Calcium 8.7 mg/dL (8.3-10.6); Calcium (Corrected) 8.7 mg/dL (8.5-10.1); Carbon Dioxide 29.4 mMol/L (20.0-31.0); Chloride 103 mMol/L (98-107); Creatinine (Component) 1.2 mg/dL (0.6-1.3); Estimated Creatinine Clearance 84.9 mL/min (>60); Globulin 2.4 gm/dL (2.3-3.5); Glucose 148 mg/dL (74-106); Lipase 26 U/L (12-53); Osmolality,Calculated 286 (275-295); Potassium 4.1 mMol/L (3.4-5.1); Sodium 142 mMol/L (136-145); Total Protein 6.5 gm/dL (5.7-8.2); eGFR > 60 See Note
[2025-04-23 12:36] LABS: Troponin I 0.664 ng/mL (0.0-0.045)
[2025-04-23 13:02] VITALS: BP 147/84; PULSE 79; RESP 16; TEMP 36.8; O2SAT 96
--- NOTE | 2025-04-23 13:10 | PD.EDADULT ---
ED General RME/HPI General Chief complaint: Nausea/Vomiting/Diarrhea Stated complaint: N/V Time Seen by Provider: 04/23/25 11:28 Arrival date/time: 04/23/25 11:22 Limitations: no limitations RME / HPI RME / HPI narrative: DR. KNOWLES MAIN ED EVALUATION: 60-year-old male was brought to emergency department by EMS for nausea and vomiting onset yesterday. He estimated about 10 times nonbloody nonbilious emesis. His last bowel movement was yesterday reportedly normal. No known sick contacts. No out of country travel. No recent use of antibiotics. No fever. Reports generalized pain. Related Data Home Medications ?Medication ?Instructions ?Recorded ?Confirmed lisinopril 20 mg tablet 20 mg PO BID #0 tabs 08/22/17 03/21/25 metoprolol tartrate 100 mg tablet 100 mg PO BID 03/14/21 03/21/25 metformin 500 mg tablet 500 mg PO HS 06/28/21 03/21/25 ropinirole 0.25 mg tablet 0.25 mg PO HS 10/03/21 03/21/25 amiodarone 200 mg tablet 200 mg PO QDAY 04/05/22 03/21/25 atorvastatin 40 mg tablet 40 mg PO HS 09/04/22 03/21/25 meclizine 25 mg tablet 25 mg PO BID PRN Dizziness 09/04/22 03/21/25 duloxetine 30 mg capsule,delayed 30 mg PO QDAY 10/24/23 03/21/25 release finasteride 5 mg tablet 5 mg PO QDAY 10/24/23 03/21/25 semaglutide 1 mg/dose (4 mg/3 mL) 1.75 mg subcut QWEEK 10/24/23 03/21/25 subcutaneous pen injector (Ozempic) gabapentin 300 mg capsule 300 mg PO TID 08/07/24 03/21/25 albuterol sulfate 90 mcg/actuation 2 puff inhalation Q4H PRN 01/07/25 03/21/25 aerosol inhaler shortness of breath or wheezing allopurinol 100 mg tablet 200 mg PO DAILY 01/07/25 03/21/25 benzonatate 100 mg capsule 200 mg PO TID PRN cough 01/07/25 03/21/25 loratadine 10 mg tablet (Claritin) 10 mg PO QDAY PRN allergic symptoms 01/07/25 03/21/25 multivitamin (Daily Multi-Vitamin 1 tab PO QAM 01/07/25 03/21/25 tablet) ondansetron HCl 4 mg tablet 4 mg PO TID PRN nausea and vomiting 01/07/25 03/21/25 Previous Rx's ?Medication ?Instructions ?Recorded tamsulosin 0.4 mg capsule (Flomax) 0.4 mg PO QDAY #7 caps 08/23/24 rivaroxaban 20 mg tablet (Xarelto) 20 mg PO QDAY #30 tabs 01/28/25 hydrocortisone 0.5 % topical cream 1 applic topical TID PRN skin 04/04/25 irritation #28.4 grams ondansetron 4 mg disintegrating 4 mg PO Q8H PRN nausea and 04/23/25 tablet vomiting #10 tabs Allergies Allergy/AdvReac Type Severity Reaction Status Date / Time No Known Allergies Allergy Verified 04/17/25 21:40 Review of Systems Review of Systems Systems Reviewed: All systems reviewed, normal except as documented Past Medical History Past Medical History NEUROLOGIC: Negative Neurological Disorders CARDIAC: Positive Cardiac Disorders, Myocardial Infarction, Angina, Coronary Artery Disease, Atherosclerotic Heart Disease, Hypercholesterolemia, Edema, Deep Vein Thrombosis and Hypertension; Negative Congestive Heart Failure RESPIRATORY: Positive Asthma, Pneumonia, Pulmonary Embolism and Sleep Apnea; Negative Chronic Obstructive Pulmonary Disease (COPD) GASTROINTESTINAL: Positive Gastrointestinal Disorders, Gastroesophageal Reflux Disease and Obesity GENITOURINARY: Positive Genitourinary Disorders, Kidney Stones and Benign Prostatic Hyperplasia; Negative Renal Disease MUSCULOSKELETAL: Positive Musculoskeletal Disorders and Gout ENDOCRINE: Positive Endocrine Disorders and Diabetes Mellitus Type 2; Negative Diabetes Mellitus Type 1 HEMATOLOGIC: Positive Blood Disorders and Clotting Problems; Negative Anemia or Sickle Cell Disease PSYCHO/SOCIAL: Positive Anxiety OTHER HISTORY: Positive Developmental Delay and Falls; Negative Autoimmune Disease, Blood Transfusions, Anesthesia Reactions or Cancer Family History FAMILY HISTORY: Positive Family Cardiac Disorders, Family Cancer and Family Surgery; Negative Family Neurologic Problems, Family Psychiatric Problems, Family Respiratory Disorders, Family Gastrointestinal Problems or Family Anesthesia Reaction Surgical History SURGICAL: Positive Vascular Surgery and Angiogram; Negative Coronary Stent Social History SMOKING STATUS: Never smoker SECOND HAND EXPOSURE: No SUBSTANCE USE: does not use ALCOHOL: Never 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 ED Exam General Limitations: Present no limitations Head Head exam: Present atraumatic and normocephalic Eye Eye exam: Present normal appearance ENT ENT exam: Present normal exam Neck Neck exam: Present normal inspection Chest Chest inspection: Present normal inspection Respiratory Respiratory exam: Present normal lung sounds bilaterally; Absent respiratory distress Cardiovascular Cardiovascular exam: Present regular rate and normal rhythm Abdominal Exam Abdominal exam: Present soft, distention and hyperactive bowel sounds; Absent tenderness or guarding exam: Present normal inspection Extremities Exam Extremities exam: Present normal inspection Back Exam Back exam: Present normal inspection Neurological Exam Neurological exam: Present alert, oriented X3, CN II-XII intact and normal gait Psychiatric Psychiatric exam: Present normal affect Skin Skin exam: Present warm and dry Course Quality Measures none Orders Category Date Time Status EKG (ED ONLY) *Do not use* NOW Care 04/23/25 11:30 Completed EKG (ED Only) Stat Exams 04/23/25 11:30 Draft CBC Stat Lab 04/23/25 11:43 Completed CMP [Comprehensive Metabolic Panel] Stat Lab 04/23/25 11:43 Completed Lipase Stat Lab 04/23/25 11:43 Completed Troponin I Stat Lab 04/23/25 11:43 Completed Troponin I Stat Lab 04/23/25 13:44 Completed Sodium Chloride 0.9% 1000 ml [Ns] 1,000 ml Med 04/23/25 11:31 Discontinued IV 999 mls/hr Vital Signs Vital signs: Vital Signs Temperature 98.9 F 04/23/25 11:24 Pulse Rate 100 04/23/25 11:24 Respiratory Rate 16 04/23/25 11:24 Blood Pressure 140/88 H 04/23/25 11:24 Pulse Oximetry (%) 95 04/23/25 11:24 Oxygen Delivery Method Room Air 04/23/25 11:24 Discharge Plan Plan Patient Disposition: HOME (Self Care) Patient condition on transfer: Stable Prescriptions/Referrals Prescriptions/Med Rec: New ondansetron 4 mg tablet,disintegrating 4 mg PO Q8H PRN (Reason: nausea and vomiting) Qty: 10 0RF No Action gabapentin 300 mg capsule 300 mg PO TID lisinopril 20 MG tablet 20 mg PO BID Qty: 0 Patient Comments: PER GHAZALA MORRIS, ONLY TAKES IF SBP >125 metformin 500 mg tablet 500 mg PO HS Patient Comments: TAKE 1 TABLET BY MOUTH EVERY DAY AT BEDTIME FOR DIABETES metoprolol tartrate 100 mg tablet 100 mg PO BID Patient Comments: TAKE 1 TABLET BY MOUTH TWICE A DAY FOR BLOOD PRESSURE ropinirole 0.25 mg Tablet 0.25 mg PO HS Patient Comments: 1-3 HRS PRIOR TO BEDTIME amiodarone 200 mg Tablet 200 mg PO QDAY atorvastatin 40 mg tablet 40 mg PO HS Patient Comments: TAKE 1 TABLET BY MOUTH AT BEDTIME FOR CHOLESTEROL meclizine 25 mg tablet 25 mg PO BID PRN (Reason: Dizziness) Patient Comments: TAKE 1-2 TABLETS BY MOUTH TWICE A DAY NEEDED FOR DIZZINESS tamsulosin [Flomax] 0.4 mg capsule 0.4 mg PO QDAY Qty: 7 0RF Ozempic 1 mg/dose (4 mg/3 mL) pen injector 1.75 mg SUBCUT QWEEK Patient Comments: Rx Instructions: 1 time weekly duloxetine 30 mg capsule,delayed release(DR/EC) 30 mg PO QDAY finasteride 5 mg tablet 5 mg PO QDAY Patient Comments: TAKE 1 TABLET BY MOUTH EVERY DAY benzonatate 100 mg capsule 200 mg PO TID PRN (Reason: cough) allopurinol 100 mg tablet 200 mg PO DAILY Patient Comments: TAKE 2 TABS BY MOUTH 1 TIME A DAY FOR GOUT multivitamin [Daily Multi-Vitamin] Tablet 1 tab PO QAM loratadine [Claritin] 10 mg tablet 10 mg PO QDAY PRN (Reason: allergic symptoms) ondansetron HCl 4 mg tablet 4 mg PO TID PRN (Reason: nausea and vomiting) albuterol sulfate 90 mcg/actuation HFA aerosol inhaler 2 puff INHALATION Q4H PRN (Reason: shortness of breath or wheezing) Patient Comments: TAKE 1-2 PUFFS BY MOUTH EVERY 4 HOURS INHALATION NEEDED Xarelto 20 mg tablet 20 mg PO QDAY Qty: 30 3RF Rx Instructions: must administer with evening meal hydrocortisone 0.5 % cream 1 applic topical TID PRN (Reason: skin irritation) Qty: 28.4 0RF Referrals: Akila Diaz PA-C [Primary Care Provider] - In 1 week Problem List Clinical Impression: Acute dehydration, Gastroenteritis and colitis, viral, Elevated troponin I measurement Patient/Caregiver Discharge Instructions Discharge Activity: activity as tolerated Education Materials: ED Dehydration (Adult), ED Food Poison Or Gastroenteritis, ED Gastroenteritis, Viral (Adult) Print Language: Uzbek Stand Alone Forms: [employer] Award Info., Patient Portal Info Letter MDM Clinical Information Provided by patient Medical Records Reviewed [facility] Meds/Rx Considered, not Ordered None Labs/Rad/Tests considered, not Ordered None Chronic Illness/Social Conditions Add or document further as needed: Pulmonary embolism on Xarelto, DVT, status post IVC filter placement history, factor V Leiden mutation, AYLEEN, BPH, hypothyroidism, hypertension, diabetes, HFpEF (EF 55-60%), and CAD. EKG EKG Interpretation narrative: My interpretation: EKG performed at 1134 hours, sinus rhythm, rate 96, incomplete right bundle branch block, no STEMI Medication Administration(s) Medication Administration History Discontinued Medications Sodium Chloride (Ns) 1,000 mls @ 999 mls/hr IV .Q1H1M ONE Stop: 04/23/25 12:31 Last Infusion: 04/23/25 12:56 Dose: Infused Documented By: Admin: 04/23/25 11:55 Dose: 999 mls/hr Documented By: EF Diagnosis Differential diagnosis: GERD, gastritis, gastroenteritis
[2025-04-23 14:17] VITALS: BP 134/104; PULSE 90; RESP 17; TEMP 36.8; O2SAT 99
[2025-04-23 14:23] LABS: Troponin I 0.625 ng/mL (0.0-0.045)
[2025-04-23 15:29] VITALS: BP 123/85; PULSE 75; RESP 13; O2SAT 96
== END 2025-04-23 15:40 | disposition home or self-care (01) ==
PROVIDERS: Emergency Provider Emergency Medicine; PCP Physician Assistant
DX: E86.0 Dehydration (principal); R79.89 Other specified abnormal findings of blood chemistry; A08.4 Viral intestinal infection, unspecified; K29.70 Gastritis, unspecified, without bleeding; K21.9 Gastro-esophageal reflux disease without esophagitis; I45.10 Unspecified right bundle-branch block
CPT/HCPCS: 36415; 80053; 83690; 84484; 85025; 93005; 96360; 99284; J7030

== ENCOUNTER 2025-04-25 17:02 | Emergency (ER) | payer MEDICAID, SELFPAY ==
[2025-04-25 18:15] VITALS: BP 133/81; PULSE 81; RESP 17; TEMP 36.6; O2SAT 97; BMI 40.2
--- NOTE | 2025-04-25 18:18 | XR_ITS ---
Examination: Abdomen sonogram, Limited Date and time of exam: April 25, 2025 2036 hours INDICATIONS: Right groin pain postangiogram one week ago Technique: Real-time quijano scale transabdominal sonographic images of the upper abdomen obtained. Findings: No hematoma or pseudoaneurysm demonstrated IMPRESSION: No hematoma or pseudoaneurysm demonstrated
--- NOTE | 2025-04-25 18:20 | PD.EDADULT ---
ED General RME/HPI General Chief complaint: Abdominal Pain Stated complaint: Right groin pain since angiogram Time Seen by Provider: 04/25/25 18:18 Arrival date/time: 04/25/25 17:02 RME / HPI RME / HPI narrative: 50-year-old male patient came in for evaluation regarding right groin pain. Patient had an angiogram done several days ago, and now complaining of pain to the right groin, associated with mild swelling. Denies any dysuria denies any abdominal pain denies any dizziness denies any chest pain denies any other complaints. No medications taken prior to arrival. Related Data Home Medications ?Medication ?Instructions ?Recorded ?Confirmed lisinopril 20 mg tablet 20 mg PO BID #0 tabs 08/22/17 03/21/25 metoprolol tartrate 100 mg tablet 100 mg PO BID 03/14/21 03/21/25 metformin 500 mg tablet 500 mg PO HS 06/28/21 03/21/25 ropinirole 0.25 mg tablet 0.25 mg PO HS 10/03/21 03/21/25 amiodarone 200 mg tablet 200 mg PO QDAY 04/05/22 03/21/25 atorvastatin 40 mg tablet 40 mg PO HS 09/04/22 03/21/25 meclizine 25 mg tablet 25 mg PO BID PRN Dizziness 09/04/22 03/21/25 duloxetine 30 mg capsule,delayed 30 mg PO QDAY 10/24/23 03/21/25 release finasteride 5 mg tablet 5 mg PO QDAY 10/24/23 03/21/25 semaglutide 1 mg/dose (4 mg/3 mL) 1.75 mg subcut QWEEK 10/24/23 03/21/25 subcutaneous pen injector (Ozempic) gabapentin 300 mg capsule 300 mg PO TID 08/07/24 03/21/25 albuterol sulfate 90 mcg/actuation 2 puff inhalation Q4H PRN 01/07/25 03/21/25 aerosol inhaler shortness of breath or wheezing allopurinol 100 mg tablet 200 mg PO DAILY 01/07/25 03/21/25 benzonatate 100 mg capsule 200 mg PO TID PRN cough 01/07/25 03/21/25 loratadine 10 mg tablet (Claritin) 10 mg PO QDAY PRN allergic symptoms 01/07/25 03/21/25 multivitamin (Daily Multi-Vitamin 1 tab PO QAM 01/07/25 03/21/25 tablet) ondansetron HCl 4 mg tablet 4 mg PO TID PRN nausea and vomiting 01/07/25 03/21/25 Previous Rx's ?Medication ?Instructions ?Recorded tamsulosin 0.4 mg capsule (Flomax) 0.4 mg PO QDAY #7 caps 08/23/24 rivaroxaban 20 mg tablet (Xarelto) 20 mg PO QDAY #30 tabs 01/28/25 hydrocortisone 0.5 % topical cream 1 applic topical TID PRN skin 04/04/25 irritation #28.4 grams ondansetron 4 mg disintegrating 4 mg PO Q8H PRN nausea and 04/23/25 tablet vomiting #10 tabs acetaminophen 300 mg-codeine 30 mg 1 tab PO BID PRN pain #14 tabs 04/25/25 tablet Allergies Allergy/AdvReac Type Severity Reaction Status Date / Time No Known Allergies Allergy Verified 04/25/25 17:08 Review of Systems Review of Systems Narrative Review of Systems: Review of system reviewed and within normal limits except mentioned in HPI ED Exam Narrative Physical exam: VITAL SIGNS: Reviewed. GENERAL APPEARANCE: Alert and interactive, follows commands, no acute distress, HEAD AND FACE: Non-traumatic. ENT: PERRL, pink conjunctivitis, eyelid no trauma, Mucous membrane moist. NECK: Supple, nontender, no nuchal rigidity. CHEST: No tenderness, no crepitus, no paradoxical movement, no retractions. LUNGS: Clear, well ventilated, symmetric, no rales, no wheezing, no ronchi, no stridor, good breath sounds bilaterally. HEART: Regular rate, regular rhythm, no murmur, no gallops. ABDOMEN: Soft, positive bowel sounds, nondistended, no guarding, nontender, no rebound, no masses, RECTAL: Deferred. GENITAL: Deferred. NEUROLOGICAL: Gross motor function intact sensory function intact, Appropriate for age. MUSCULOSKELETAL: low back nontender, full range of motion. EXTREMITIES: Right groin tenderness, no swelling slight bruising femoral pulses +2, full range of motion. SKIN: Color pink, dry, no rash, no lacerations, no abrasions, no contusions. LYMPHATICS: Deferred. Course Quality Measures none Orders Category Date Time Status US abdomen limited Stat Exams 04/25/25 18:18 Completed HYDROcodone*/APAP 5/325 [Bude 5/325] Med 04/25/25 18:18 Discontinued 1 tab PO X1 ONE Vital Signs Vital signs: Vital Signs Temperature 97.8 F 04/25/25 18:15 Pulse Rate 81 04/25/25 18:15 Respiratory Rate 17 04/25/25 18:15 Blood Pressure 133/81 H 04/25/25 18:15 Pulse Oximetry (%) 97 04/25/25 18:15 Oxygen Delivery Method Room Air 04/25/25 18:15 Discharge Plan Plan Patient Disposition: HOME (Self Care) Discharge Disposition comment: Stable Prescriptions/Referrals Prescriptions/Med Rec: New acetaminophen-codeine 300-30 mg tablet 1 tab PO BID PRN (Reason: pain) Qty: 14 0RF No Action gabapentin 300 mg capsule 300 mg PO TID lisinopril 20 MG tablet 20 mg PO BID Qty: 0 Patient Comments: PER ROOMATE ALEXANDRA, ONLY TAKES IF SBP >125 metformin 500 mg tablet 500 mg PO HS Patient Comments: TAKE 1 TABLET BY MOUTH EVERY DAY AT BEDTIME FOR DIABETES metoprolol tartrate 100 mg tablet 100 mg PO BID Patient Comments: TAKE 1 TABLET BY MOUTH TWICE A DAY FOR BLOOD PRESSURE ropinirole 0.25 mg Tablet 0.25 mg PO HS Patient Comments: 1-3 HRS PRIOR TO BEDTIME amiodarone 200 mg Tablet 200 mg PO QDAY atorvastatin 40 mg tablet 40 mg PO HS Patient Comments: TAKE 1 TABLET BY MOUTH AT BEDTIME FOR CHOLESTEROL meclizine 25 mg tablet 25 mg PO BID PRN (Reason: Dizziness) Patient Comments: TAKE 1-2 TABLETS BY MOUTH TWICE A DAY NEEDED FOR DIZZINESS tamsulosin [Flomax] 0.4 mg capsule 0.4 mg PO QDAY Qty: 7 0RF ondansetron 4 mg tablet,disintegrating 4 mg PO Q8H PRN (Reason: nausea and vomiting) Qty: 10 0RF Ozempic 1 mg/dose (4 mg/3 mL) pen injector 1.75 mg SUBCUT QWEEK Patient Comments: Rx Instructions: 1 time weekly duloxetine 30 mg capsule,delayed release(DR/EC) 30 mg PO QDAY finasteride 5 mg tablet 5 mg PO QDAY Patient Comments: TAKE 1 TABLET BY MOUTH EVERY DAY benzonatate 100 mg capsule 200 mg PO TID PRN (Reason: cough) allopurinol 100 mg tablet 200 mg PO DAILY Patient Comments: TAKE 2 TABS BY MOUTH 1 TIME A DAY FOR GOUT multivitamin [Daily Multi-Vitamin] Tablet 1 tab PO QAM loratadine [Claritin] 10 mg tablet 10 mg PO QDAY PRN (Reason: allergic symptoms) ondansetron HCl 4 mg tablet 4 mg PO TID PRN (Reason: nausea and vomiting) albuterol sulfate 90 mcg/actuation HFA aerosol inhaler 2 puff INHALATION Q4H PRN (Reason: shortness of breath or wheezing) Patient Comments: TAKE 1-2 PUFFS BY MOUTH EVERY 4 HOURS INHALATION NEEDED Xarelto 20 mg tablet 20 mg PO QDAY Qty: 30 3RF Rx Instructions: must administer with evening meal hydrocortisone 0.5 % cream 1 applic topical TID PRN (Reason: skin irritation) Qty: 28.4 0RF Referrals: Akila Diaz PA-C [Primary Care Provider] - In 1 week Problem List Clinical Impression: Groin pain Patient/Caregiver Discharge Instructions Discharge Activity: activity as tolerated Education Materials: Understanding the Pain Response Additional Instructions: Thank you for the opportunity for serving you today. You are stable for discharged . You are advised to: Follow-up with your PCP in 1 to 2 days Return to ED for worsening of symptoms Increase oral fluids Take medication as prescribed Print Language: Sami Stand Alone Forms: [employer] Award Info., Patient Portal Info Letter LIS Supervising Physician LIS Supervising Physician: MD Jenna [facility] Narrative [facility] hospital course: 50-year-old male patient came in for evaluation regarding right groin pain. Patient had an angiogram done several days ago, and now complaining of pain to the right groin, associated with mild swelling. Denies any dysuria denies any abdominal pain denies any dizziness denies any chest pain denies any other complaints. No medications taken prior to arrival. Ultrasound of the groin came back unremarkable. Results discussed with the patient. Clinical Information Provided by none Medication Administration(s) Medication Administration History Discontinued Medications Hydrocodone Bitart/Acetaminophen (Hydrocodone/Apap 5/325 Tablet) 1 tab PO X1 ONE Stop: 04/25/25 18:19 Last Admin: 04/25/25 19:02 Dose: 1 tab Documented By: ED Diagnosis Differential diagnosis: Groin pain, pseudoaneurysm groin, hematoma groin status post angiogram Most likely dx, and/or detailed dx discussion: Groin pain
[2025-04-25] MEDS: HYDROcodone/APAP 5/325 TABLET 1 TAB PO (19:02)
[2025-04-25 21:41] VITALS: RESP 16
== END 2025-04-25 21:42 | disposition home or self-care (01) ==
PROVIDERS: Emergency Provider Emergency Medicine; PCP Physician Assistant
DX: R10.31 Right lower quadrant pain (principal)
CPT/HCPCS: 76705; 99284; A9270

== ENCOUNTER 2025-05-07 03:59 | Emergency (ER) | payer MEDICAID, SELFPAY ==
[2025-05-07 04:11] VITALS: BP 128/85; PULSE 72; RESP 18; TEMP 36.9; O2SAT 96
[2025-05-07 04:12] VITALS: PULSE 91; RESP 18; O2SAT 96; BMI 43.8
--- NOTE | 2025-05-07 04:53 | EDRME_ITS ---
Rapid Medical Screening Exam FOR[facility]LY [facility] Arrival date/time: 05/07/25 03:59 50M with extensive PMH including DVT/PE on Xarelto presents to ED with [id number] neck/back pain that radiates down to both legs. Patient denies fall/trauma, paresthesia, and bowel/bladder incontinence. Patient took some Tylenol #3 w/o relief. Chief Complaint: Back Pain/Injury Vital signs: Vital Signs Temperature 98.4 F 05/07/25 04:11 Pulse Rate 72 05/07/25 04:11 Respiratory Rate 18 05/07/25 04:11 Blood Pressure 128/85 H 05/07/25 04:11 Pulse Oximetry (%) 96 05/07/25 04:11 Oxygen Delivery Method Room Air 05/07/25 04:11
[2025-05-07] MEDS: GABAPENTIN 300 MG CAPSULE PO (05:17)
[2025-05-07] MEDS: HYDROcodone/APAP 5/325 TABLET 1 TAB PO (05:18)
[2025-05-07 07:44] VITALS: BP 107/89; PULSE 70; RESP 18; TEMP 36.6; O2SAT 96
--- NOTE | 2025-05-07 08:27 | PD.EDBACK ---
ED Back Injury Pain RME/HPI General Chief Complaint: Back Pain/Injury Stated Complaint: NECK PAIN Time Seen by Provider: 05/07/25 08:26 Arrival date/time: 05/07/25 03:59 Limitations: no limitations RME / HPI RME / HPI Narrative: 05/07/25 03:59 50M with extensive PMH including DVT/PE on Xarelto presents to ED with [id number] neck/back pain that radiates down to both legs. Patient denies fall/trauma, paresthesia, and bowel/bladder incontinence. Patient took some Tylenol #3 w/o relief. DR. GOODMAN MAIN ED EVALUATION: 50 year old male with history of HFpEF (EF 55-60% 01/2025), CAD, hypertension, diabetes, pulmonary embolism on Xarelto, DVT, status post IVC filter placement history, factor V Leiden mutation, AYLEEN, BPH, hypothyroidism presents to the ED for evaluation of generalized pain. States pain is felt from his neck down to his feet and had taken Tylenol #3 at home without improvement. Denies any falls or injuries. No other associated symptoms reported. Denies fevers, chills, sweats, cough, shortness of breath, n/v/d, or urinary symptoms. Related Data Home Medications ?Medication ?Instructions ?Recorded ?Confirmed lisinopril 20 mg tablet 20 mg PO BID #0 tabs 08/22/17 03/21/25 metoprolol tartrate 100 mg tablet 100 mg PO BID 03/14/21 03/21/25 metformin 500 mg tablet 500 mg PO HS 06/28/21 03/21/25 ropinirole 0.25 mg tablet 0.25 mg PO HS 10/03/21 03/21/25 amiodarone 200 mg tablet 200 mg PO QDAY 04/05/22 03/21/25 atorvastatin 40 mg tablet 40 mg PO HS 09/04/22 03/21/25 meclizine 25 mg tablet 25 mg PO BID PRN Dizziness 09/04/22 03/21/25 duloxetine 30 mg capsule,delayed 30 mg PO QDAY 10/24/23 03/21/25 release finasteride 5 mg tablet 5 mg PO QDAY 10/24/23 03/21/25 semaglutide 1 mg/dose (4 mg/3 mL) 1.75 mg subcut QWEEK 10/24/23 03/21/25 subcutaneous pen injector (Ozempic) gabapentin 300 mg capsule 300 mg PO TID 08/07/24 03/21/25 albuterol sulfate 90 mcg/actuation 2 puff inhalation Q4H PRN 01/07/25 03/21/25 aerosol inhaler shortness of breath or wheezing allopurinol 100 mg tablet 200 mg PO DAILY 01/07/25 03/21/25 benzonatate 100 mg capsule 200 mg PO TID PRN cough 01/07/25 03/21/25 loratadine 10 mg tablet (Claritin) 10 mg PO QDAY PRN allergic symptoms 01/07/25 03/21/25 multivitamin (Daily Multi-Vitamin 1 tab PO QAM 01/07/25 03/21/25 tablet) ondansetron HCl 4 mg tablet 4 mg PO TID PRN nausea and vomiting 01/07/25 03/21/25 Previous Rx's ?Medication ?Instructions ?Recorded tamsulosin 0.4 mg capsule (Flomax) 0.4 mg PO QDAY #7 caps 08/23/24 rivaroxaban 20 mg tablet (Xarelto) 20 mg PO QDAY #30 tabs 01/28/25 hydrocortisone 0.5 % topical cream 1 applic topical TID PRN skin 04/04/25 irritation #28.4 grams ondansetron 4 mg disintegrating 4 mg PO Q8H PRN nausea and 04/23/25 tablet vomiting #10 tabs acetaminophen 300 mg-codeine 30 mg 1 tab PO BID PRN pain #14 tabs 04/25/25 tablet baclofen 20 mg tablet 20 mg PO BID #10 tabs 05/07/25 dexamethasone 6 mg tablet 6 mg PO QDAY 4 days #4 tabs 05/07/25 diclofenac sodium 75 mg 75 mg PO BID 5 days #10 tabs 05/07/25 tablet,delayed release Allergies Allergy/AdvReac Type Severity Reaction Status Date / Time No Known Allergies Allergy Verified 05/07/25 04:12 Review of Systems Review of Systems Systems Reviewed: All systems reviewed, normal except as documented Past Medical History Past Medical History CARDIAC: Positive Cardiac Disorders, Myocardial Infarction, Angina, Coronary Artery Disease, Atherosclerotic Heart Disease, Hypercholesterolemia, Edema, Deep Vein Thrombosis and Hypertension RESPIRATORY: Positive Asthma, Pneumonia, Pulmonary Embolism and Sleep Apnea GASTROINTESTINAL: Positive Gastrointestinal Disorders, Gastroesophageal Reflux Disease and Obesity GENITOURINARY: Positive Genitourinary Disorders, Kidney Stones and Benign Prostatic Hyperplasia MUSCULOSKELETAL: Positive Musculoskeletal Disorders and Gout ENDOCRINE: Positive Endocrine Disorders and Diabetes Mellitus Type 2 HEMATOLOGIC: Positive Blood Disorders and Clotting Problems PSYCHO/SOCIAL: Positive Anxiety OTHER HISTORY: Positive Developmental Delay and Falls Family History FAMILY HISTORY: Positive Family Cardiac Disorders, Family Cancer and Family Surgery Surgical History SURGICAL: Positive Vascular Surgery and Angiogram Social History SMOKING STATUS: Never smoker SECOND HAND EXPOSURE: No SUBSTANCE USE: does not use 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 Exam 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 Limitations: Present no limitations General appearance: Present alert and in no apparent distress Head Head exam: Present atraumatic, normocephalic and normal inspection Eye Eye exam: Present normal appearance, PERRL and EOMI ENT ENT exam: Present normal exam, normal oropharynx and mucous membranes moist Neck Neck exam: Present normal inspection, full ROM and trachea midline Chest Chest inspection: Present normal inspection and symmetric chest wall rise Respiratory Respiratory exam: Present normal lung sounds bilaterally Cardiovascular Cardiovascular exam: Present regular rate, normal rhythm and normal heart sounds Abdominal Exam Abdominal exam: Present soft and normal bowel sounds Extremities Exam Extremities exam: Present normal inspection and full ROM Back Exam Back exam: Present normal inspection and full ROM Neurological Exam Neurological exam: Present alert, oriented X3 and CN II-XII intact Psychiatric Psychiatric exam: Present normal affect and normal mood Skin Skin exam: Present warm, dry, intact and normal color Course Quality Measures none Orders Category Date Time Status Dexamethasone Inj [Decadron Inj] Med 05/07/25 08:26 Discontinued 8 mg IM X1 ONE Gabapentin [Neurontin] Med 05/07/25 04:52 Discontinued 300 mg PO X1 ONE HYDROcodone*/APAP 5/325 [Benson 5/325] Med 05/07/25 04:52 Discontinued 1 tab PO X1 ONE Ketorolac Inj [Toradol Inj] Med 05/07/25 08:26 Discontinued 30 mg IM X1 ONE Vital Signs Vital signs: Vital Signs Temperature 98.4 F 05/07/25 04:11 Pulse Rate 72 05/07/25 04:11 Respiratory Rate 18 05/07/25 04:11 Blood Pressure 128/85 H 05/07/25 04:11 Pulse Oximetry (%) 96 05/07/25 04:11 Oxygen Delivery Method Room Air 05/07/25 04:11 Pulse ox is 96% on room air which is adequate. Back Pain / Injury MDM Narrative MDM Narrative:: IKatharine, am scribing for and in the presence of Dr. Goodman. Given the nature of the pain, it is most likely musculoskeletal in origin. The patient?s vital signs were stable, and no other red flags or alarming findings were noted. Assessment: Chronic back pain, likely musculoskeletal in origin, given the diffuse nature of the pain and absence of concerning systemic symptoms. Plan: Toradol and Decadron. Discharge with recommendations to follow up with his PCP for further evaluation and management of his chronic pain. Patient data External records reviewed:: [facility] previous records (I reviewed ED visit on 04/25/2025 for groin pain. ) Clinical information provided by:: patient Social determinants that could affect healthcare access:: none Patient has the following chronic illnesses:: HFpEF (EF 55-60% 01/2025), CAD, hypertension, diabetes, pulmonary embolism on Xarelto, DVT, status post IVC filter placement history, factor V Leiden mutation, AYLEEN, BPH, hypothyroidism How is presenting disease/condition affected by chronic disease/condition?: exacerbated by Evaluation data The following diagnostics were reviewed and interpreted by me:: other (specify) (No diagnostics ordered ) Lab and/or radiology exams considered but not ordered:: None Interpretation Summary: N/A Medications / Prescriptions Medications or Prescriptions considered but not ordered:: None Medication administrations:: Medication Administration History Discontinued Medications Hydrocodone Bitart/Acetaminophen (Hydrocodone/Apap 5/325 Tablet) 1 tab PO X1 ONE Stop: 05/07/25 04:53 Last Admin: 05/07/25 05:18 Dose: 1 tab Documented By: KAY Dexamethasone Sodium Phosphate (Dexamethasone Sod Phos Inj 4 Mg/Ml Vial) 8 mg IM X1 ONE; Protocol Stop: 05/07/25 08:27 Last Admin: 05/07/25 08:40 Dose: 8 mg Documented By: KAYLA Gabapentin (Gabapentin 300 Mg Capsule) 300 mg PO X1 ONE Stop: 05/07/25 04:53 Last Admin: 05/07/25 05:17 Dose: 300 mg Documented By: KAY Ketorolac Tromethamine (Ketorolac Inj 60 Mg/2 Ml Vial) 30 mg IM X1 ONE Stop: 05/07/25 08:27 Last Admin: 05/07/25 08:37 Dose: 30 mg Documented By: KAYLA See above Consultations Consultation(s) initiated? (list below): No Diagnosis Differential diagnosis back pain/injury: lumbar radiculopathy, sciatica, strain of lumbar region and other (chronic pain ) Most likely diagnosis given after review of the tests above:: Thoracic back pain Strain of lumbar region Admission Indicated Admission indicated?: not indicated Explain why admission is indicated or not indicated:: Does not meet admission criteria Admission Request Was there a request for admission?: No Disposition Plan Disposition Plan: Discharge Discharge Attestation Discharge Attestation: The patient and all family members were given an opportunity to ask questions and understood the discharge instructions. Discharge instructions specifically effects, indications for sooner follow up or return to the emergency department, and the expected course of current diagnosis. Patient condition: Stable Discharge Plan Plan Patient Disposition: HOME (Self Care) Prescriptions/Referrals Prescriptions/Med Rec: New dexamethasone 6 mg tablet 6 mg PO QDAY 4 Days Qty: 4 0RF diclofenac sodium 75 mg tablet,delayed release (DR/EC) 75 mg PO BID 5 Days Qty: 10 0RF baclofen 20 mg tablet 20 mg PO BID Qty: 10 0RF No Action gabapentin 300 mg capsule 300 mg PO TID lisinopril 20 MG tablet 20 mg PO BID Qty: 0 Patient Comments: PER ROOMKAYLAN MORRIS, ONLY TAKES IF SBP >125 metformin 500 mg tablet 500 mg PO HS Patient Comments: TAKE 1 TABLET BY MOUTH EVERY DAY AT BEDTIME FOR DIABETES metoprolol tartrate 100 mg tablet 100 mg PO BID Patient Comments: TAKE 1 TABLET BY MOUTH TWICE A DAY FOR BLOOD PRESSURE ropinirole 0.25 mg Tablet 0.25 mg PO HS Patient Comments: 1-3 HRS PRIOR TO BEDTIME amiodarone 200 mg Tablet 200 mg PO QDAY atorvastatin 40 mg tablet 40 mg PO HS Patient Comments: TAKE 1 TABLET BY MOUTH AT BEDTIME FOR CHOLESTEROL meclizine 25 mg tablet 25 mg PO BID PRN (Reason: Dizziness) Patient Comments: TAKE 1-2 TABLETS BY MOUTH TWICE A DAY NEEDED FOR DIZZINESS tamsulosin [Flomax] 0.4 mg capsule 0.4 mg PO QDAY Qty: 7 0RF ondansetron 4 mg tablet,disintegrating 4 mg PO Q8H PRN (Reason: nausea and vomiting) Qty: 10 0RF acetaminophen-codeine 300-30 mg tablet 1 tab PO BID PRN (Reason: pain) Qty: 14 0RF Ozempic 1 mg/dose (4 mg/3 mL) pen injector 1.75 mg SUBCUT QWEEK Patient Comments: [facility] Rx Instructions: 1 time weekly duloxetine 30 mg capsule,delayed release(DR/EC) 30 mg PO QDAY finasteride 5 mg tablet 5 mg PO QDAY Patient Comments: TAKE 1 TABLET BY MOUTH EVERY DAY benzonatate 100 mg capsule 200 mg PO TID PRN (Reason: cough) allopurinol 100 mg tablet 200 mg PO DAILY Patient Comments: TAKE 2 TABS BY MOUTH 1 TIME A DAY FOR GOUT multivitamin [Daily Multi-Vitamin] Tablet 1 tab PO QAM loratadine [Claritin] 10 mg tablet 10 mg PO QDAY PRN (Reason: allergic symptoms) ondansetron HCl 4 mg tablet 4 mg PO TID PRN (Reason: nausea and vomiting) albuterol sulfate 90 mcg/actuation HFA aerosol inhaler 2 puff INHALATION Q4H PRN (Reason: shortness of breath or wheezing) Patient Comments: TAKE 1-2 PUFFS BY MOUTH EVERY 4 HOURS INHALATION NEEDED Xarelto 20 mg tablet 20 mg PO QDAY Qty: 30 3RF Rx Instructions: must administer with evening meal hydrocortisone 0.5 % cream 1 applic topical TID PRN (Reason: skin irritation) Qty: 28.4 0RF Referrals: Akila Diaz PA-C [Primary Care Provider] - In 1 week Problem List Clinical Impression: Thoracic back pain, Strain of lumbar region Patient/Caregiver Discharge Instructions Education Materials: Back Exercises: Back Press, Back Exercises: Arm Reach, Back Exercises: Leg Reach, Back Exercises: Lower Back Stretch, Lumbar Stretch (Flexibility) Additional Instructions: Follow-up with your doctor in 3 to 5 days Make sure to get referred for physical therapy for your back Print Language: [place]ill[place] Stand Alone Forms: [employer] Award Info., Patient Portal Info Letter
[2025-05-07] MEDS: KETOROLAC INJ 60 MG/2 ML VIAL 30 MG IM (08:37)
[2025-05-07] MEDS: DEXAMETHASONE SOD PHOS INJ 4 MG/ML VIAL 8 MG IM (08:40)
== END 2025-05-07 09:01 | disposition home or self-care (01) ==
PROVIDERS: Emergency Provider Emergency Medicine; PCP Physician Assistant
DX: S39.012A Strain of muscle, fascia and tendon of lower back, initial encounter (principal); S29.012A Strain of muscle and tendon of back wall of thorax, initial encounter; X58.XXXA Exposure to other specified factors, initial encounter; I50.32 Chronic diastolic (congestive) heart failure; I11.0 Hypertensive heart disease with heart failure; I25.10 Atherosclerotic heart disease of native coronary artery without angina pectoris; E11.9 Type 2 diabetes mellitus without complications; Z86.718 Personal history of other venous thrombosis and embolism; N40.0 Benign prostatic hyperplasia without lower urinary tract symptoms; E03.9 Hypothyroidism, unspecified; D68.51 Activated protein C resistance; G47.33 Obstructive sleep apnea (adult) (pediatric)
CPT/HCPCS: 96372; 99283; J1100; J1885; A9270

== ENCOUNTER 2025-05-08 23:40 | Inpatient (IN) | payer MEDICAID, SELFPAY ==
--- NOTE | 2025-05-08 23:44 | EKG_ITS ---
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
--- NOTE | 2025-05-08 23:44 | XR_ITS ---
Examination: AP chest single view Single AP portable semiupright chest single view Date and time: May 09, 2025, 0042 hours Comparison March 22, 2025 INDICATIONS: Chest pain shortness of breath beginning today. FINDINGS: Mild enlargement cardiac contour Stable nodule right upper lobe, likely residua of pneumonia in the right upper lobe on chest film October 21, 2024 No unremarkable pneumonia or pulmonary edema IMPRESSION: No interval pneumonia or pulmonary edema Recommend three-month follow-up PA chest to document stability of small nodule in the right upper lobe
--- NOTE | 2025-05-08 23:44 | XR_ITS ---
Examination: CT brain head without contrast. 2-D sagittal coronal reconstructions Date and time of exam:May 09, 2025, 0405 hours INDICATIONS: Syncopal episodes today CTDI: vol (mGy):48 DLP: (mGycm):951 Technique: Multiple CT axial sections of the brain have been obtained, 5 mm slice thickness. Contrast has not been administered. 2-D sagittal, coronal reconstructions have been obtained Low dose protocols were performed. One or more of the following dose reduction techniques were used; automated exposure control, adjustment of the mA and/or KV according to patient size, use of iterative reconstruction technique. Findings: No significant ventricular enlargement. Intra-axial or extra-axial hemorrhage density is not seen. No mass effect or midline shift Basal cisterns are not remarkable. Fourth ventricle is midline. Cranial vault intact. Impression: Negative for acute hemorrhage, mass effect or midline shift
--- NOTE | 2025-05-08 23:46 | PD.EDWEAK ---
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 Patient reports sitting on a chair, drinking his water, when he accidentally spilled it due to shaking. His girlfriend came and cleaned the water up for him, then headed back upstairs. Patent then passed out and fell off his chair with no obvious trauma. He was incoherent so his girlfriend called EMS. Patient denies smoking and alcohol use, but is on a water restriction by his PCP. Patient denies localized weakness, blurred vision or any other associated symptoms or aggravating factors. No modifying factors, no radiation, no migration. No pain reported overall. Related Data Home Medications ?Medication ?Instructions ?Recorded ?Confirmed lisinopril 20 mg tablet 20 mg PO BID #0 tabs 08/22/17 03/21/25 metoprolol tartrate 100 mg tablet 100 mg PO BID 03/14/21 03/21/25 metformin 500 mg tablet 500 mg PO HS 06/28/21 03/21/25 ropinirole 0.25 mg tablet 0.25 mg PO HS 10/03/21 03/21/25 amiodarone 200 mg tablet 200 mg PO QDAY 04/05/22 03/21/25 atorvastatin 40 mg tablet 40 mg PO HS 09/04/22 03/21/25 meclizine 25 mg tablet 25 mg PO BID PRN Dizziness 09/04/22 03/21/25 duloxetine 30 mg capsule,delayed 30 mg PO QDAY 10/24/23 03/21/25 release finasteride 5 mg tablet 5 mg PO QDAY 10/24/23 03/21/25 semaglutide 1 mg/dose (4 mg/3 mL) 1.75 mg subcut QWEEK 10/24/23 03/21/25 subcutaneous pen injector (Ozempic) gabapentin 300 mg capsule 300 mg PO TID 08/07/24 03/21/25 albuterol sulfate 90 mcg/actuation 2 puff inhalation Q4H PRN 01/07/25 03/21/25 aerosol inhaler shortness of breath or wheezing allopurinol 100 mg tablet 200 mg PO DAILY 01/07/25 03/21/25 benzonatate 100 mg capsule 200 mg PO TID PRN cough 01/07/25 03/21/25 loratadine 10 mg tablet (Claritin) 10 mg PO QDAY PRN allergic symptoms 01/07/25 03/21/25 multivitamin (Daily Multi-Vitamin 1 tab PO QAM 01/07/25 03/21/25 tablet) ondansetron HCl 4 mg tablet 4 mg PO TID PRN nausea and vomiting 01/07/25 03/21/25 Previous Rx's ?Medication ?Instructions ?Recorded tamsulosin 0.4 mg capsule (Flomax) 0.4 mg PO QDAY #7 caps 08/23/24 rivaroxaban 20 mg tablet (Xarelto) 20 mg PO QDAY #30 tabs 01/28/25 hydrocortisone 0.5 % topical cream 1 applic topical TID PRN skin 04/04/25 irritation #28.4 grams ondansetron 4 mg disintegrating 4 mg PO Q8H PRN nausea and 04/23/25 tablet vomiting #10 tabs acetaminophen 300 mg-codeine 30 mg 1 tab PO BID PRN pain #14 tabs 04/25/25 tablet baclofen 20 mg tablet 20 mg PO BID #10 tabs 05/07/25 dexamethasone 6 mg tablet 6 mg PO QDAY 4 days #4 tabs 05/07/25 diclofenac sodium 75 mg 75 mg PO BID 5 days #10 tabs 05/07/25 tablet,delayed release Allergies Allergy/AdvReac Type Severity Reaction Status Date / Time No Known Allergies Allergy Verified 05/07/25 04:12 Review of Systems Review of Systems Systems Reviewed: All systems reviewed, normal except as documented Past Medical History Past Medical History CARDIAC: Positive Cardiac Disorders, Myocardial Infarction, Angina, Coronary Artery Disease, Atherosclerotic Heart Disease, Hypercholesterolemia, Edema, Deep Vein Thrombosis and Hypertension RESPIRATORY: Positive Asthma, Pneumonia, Pulmonary Embolism and Sleep Apnea GASTROINTESTINAL: Positive Gastrointestinal Disorders, Gastroesophageal Reflux Disease and Obesity GENITOURINARY: Positive Genitourinary Disorders, Kidney Stones and Benign Prostatic Hyperplasia MUSCULOSKELETAL: Positive Musculoskeletal Disorders and Gout ENDOCRINE: Positive Endocrine Disorders and Diabetes Mellitus Type 2 HEMATOLOGIC: Positive Blood Disorders and Clotting Problems PSYCHO/SOCIAL: Positive Anxiety OTHER HISTORY: Positive Developmental Delay and Falls Family History FAMILY HISTORY: Positive Family Cardiac Disorders, Family Cancer and Family Surgery Surgical History SURGICAL: Positive Vascular Surgery and Angiogram ED Exam Narrative Physical exam: GENERAL APPEARANCE: alert and oriented x 4, well-developed, well-nourished, no acute distress VITALS: All vitals were reviewed and the pulse ox is 96% on room air, which is normal according to my interpretation. HEENT: Normocephalic, atraumatic; pupils equal, round, reactive to light; EOMI; mucous membranes pink, moist; oropharynx clear NECK: Supple LUNGS: CTABL; no wheezes, no rales, no rhonchi HEART: Regular rate, regular rhythm; normal S1, S2; no murmurs ABDOMEN: non distended; normal BS; soft, no tenderness, no guarding, no rebound; no masses, no organomegaly, no hernia BACK: no CVA tenderness EXTREMITIES: atraumatic; no edema NEUROLOGIC: awake; alert and oriented x4; cranial nerves II-XII grossly intact; no focal sensory or motor deficits PSYCHIATRIC: appropriate mood and affect SKIN: warm, dry, normal color; no rashes Course Course Course Narrative: CXR is ordered for determining the etiology of shortness of breath. Quality Measures none Orders Category Date Time Status Assistant Associate Professor NOW Care 05/08/25 23:44 Active EKG (ED ONLY) *Do not use* NOW Care 05/08/25 23:[address] head/brain wo con Stat Exams 05/08/25 23:44 Taken EKG (ED Only) Stat Exams 05/08/25 23:44 Draft XR chest 1V portable Stat Exams 05/08/25 23:44 Taken B-Type Natriuretic Peptide Stat Lab 05/08/25 23:44 Completed CBC Stat Lab 05/08/25 23:44 Completed Comprehensive Metabolic Panel Stat Lab 05/08/25 23:44 Completed Lipase Stat Lab 05/08/25 23:44 Completed Magnesium Stat Lab 05/08/25 23:44 Completed Partial Thromboplastin Time Stat Lab 05/08/25 23:44 Completed Prothrombin Time with INR Stat Lab 05/08/25 23:44 Completed Troponin I Stat Lab 05/08/25 23:44 Completed UA, C/S IF [Urinalysis, C/S if Indicated] Stat Lab 05/09/25 01:26 Ordered ALBUTEROL RT 0.5ml [Proventil Rt 0.5ml] Med 05/09/25 01:23 Discontinued 10 mg INH X1 ONE Calcium Gluconate 10% Inj Med 05/09/25 01:19 Discontinued 1 gm IV X1 ONE Dextrose 50% Syr [D50w Syringe Abboject] Med 05/09/25 01:23 Discontinued 50 ml IVP X1 ONE Insulin Regular Med 05/09/25 01:23 Discontinued 5 unit IV X1 ONE Sod Polystyrene Sulfon Susp [Kayexalate Susp] Med 05/09/25 01:20 Discontinued 30 gm PO X1 ONE Sodium Chloride 0.9% 1000 ml [Ns] 1,000 ml Med 05/09/25 01:19 Discontinued IV 999 mls/hr Sodium Chloride Rt Tiana 0.9% [NS Rt Tiana 0.9%] Med 05/09/25 01:23 Active 3 ml INH PRN PRN BiPAP / CPAP NOW RT 05/09/25 02:00 Active Vital Signs Vital signs: Vital Signs Temperature 98.6 F 05/08/25 23:49 Pulse Rate 68 05/08/25 23:49 Respiratory Rate 18 05/08/25 23:49 Blood Pressure 119/67 05/08/25 23:49 Pulse Oximetry (%) 96 05/08/25 23:49 Oxygen Delivery Method Room Air 05/08/25 23:49 Weakness MDM Narrative MDM Narrative:: Scribe Attestation: IEdda am scribing for and in the presence of Dr. Galloway. Provider Notation: Although this document has been carefully reviewed, there may still be some phonetic and other typographical errors.? These errors are purely grammatical due to imperfections in the software program and should not be construed in any way to? compromise the substance of the patient's medical care during this visit. Patient data External records reviewed:: [facility] previous records (Reviewed prior ED records from 05/07/25. Patient was seen for Strain of lumbar region.) and EMS form Clinical information provided by:: patient and EMS Social determinants that could affect healthcare access:: none Patient has the following chronic illnesses:: Asthma, Pneumonia, Pulmonary Embolism, Sleep Apnea, Gastroesophageal Reflux Disease, Obesity, Kidney Stones, Benign Prostatic Hyperplasia, Gout, Diabetes Mellitus Type 2, Clotting Problems, Anxiety, Developmental Delay How is presenting disease/condition affected by chronic disease/condition?: exacerbated by Evaluation data The following diagnostics were reviewed and interpreted by me:: lab results, radiology exam(s) and EKG tracing(s) (EKG manual reading, my interpretation: sinus rhythm, rate: 64 bpm,diffused flattening of ST segments, T-wave inversions at III, V5, V6, no acute ischemic changes.) Lab and/or radiology exams considered but not ordered:: None Interpretation Summary: RADIOLOGY Chest X-Ray: Pending official radiology report. Head/Brain CT: CT scan of the head without intravenous contrast (axial sections with sagittal and coronal reformats). May 09, 2025 at 0405 hours Clinical History: Syncope. Comparison: Compared with the prior study dated March 14, 2021. Findings: CT of the brain obtained without injection of any intravenous contrast shows normal brain parenchyma and ventricles are seen. No evidence of any intracranial bleed, mass effect or shift of the midline structures. Normal-sized ventricles are seen. Normal paranasal sinuses and normal mastoid air cells are seen. IMPRESSION: Normal brain scan with no evidence of any intracranial bleed is seen. No other abnormalities seen. Report Electronically Signed By: Brown Solomon 05/09/2025 5:20:06 AM [EST] Medications / Prescriptions Medications or Prescriptions considered but not ordered:: None Medication administrations:: Medication Administration History Acetaminophen (Acetaminophen 325 Mg Tablet) 650 mg PO Q6H PRN PRN Reason: Fever >101.5 Stop: 06/08/25 02:19 Acetaminophen (Acetaminophen 325 Mg Tablet) 650 mg PO Q6H PRN PRN Reason: PAIN SCALE 1-3 (mild Stop: 06/08/25 02:19 Amiodarone HCl (Amiodarone Hcl 200 Mg Tablet) 200 mg PO QDAY TUAN Stop: 06/08/25 08:59 Atorvastatin Calcium (Atorvastatin Calcium 20 Mg Tablet) 40 mg PO HS TUAN Stop: 06/08/25 20:59 Dextrose (Dextrose 50%-Water Inj 50 Ml Syringe) 25 ml IV Q15MIN PRN PRN Reason: BG 50-70 responsive npo pt Stop: 06/08/25 02:36 Dextrose (Dextrose 50%-Water Inj 50 Ml Syringe) 50 ml IV Q15MIN PRN PRN Reason: BG <50 OR BG <70 & pt unresponsive Stop: 06/08/25 02:36 Duloxetine HCl (Duloxetine Hcl 30 Mg Capsule) 30 mg PO QDAY TUAN Stop: 06/08/25 08:59 Finasteride (Finasteride 5 Mg Tablet) 5 mg PO QDAY TUAN Stop: 06/08/25 08:59 Glucagon (Glucagon Inj 1 Mg Vial) 1 mg IM Q15MIN PRN PRN Reason: BG <70, and no IV access Lactated Ringer's (Lactated Ringers) 1,000 mls @ 75 mls/hr IV .[id number] [facility] Stop: 06/08/25 04:05 Insulin Human Lispro (Insulin Lispro (Admelog) 1 Unit/0.01 Ml Unit) 0 unit SC AC [facility]; Protocol Stop: 06/08/25 07:29 Ondansetron HCl (Ondansetron Inj 2 Mg/Ml Inj 2 Ml) 4 mg IVP Q6H PRN; Protocol PRN Reason: NAUSEA OR VOMITING Stop: 06/08/25 02:19 Oxycodone/Acetaminophen (Oxycodone/Apap 5/325 Tablet) 1 tab PO Q6H PRN PRN Reason: PAIN SCALE 4-6 (Moderate Stop: 05/14/25 02:27 Rivaroxaban (Rivaroxaban 10 Mg Tablet) 20 mg PO QDAY TUAN Stop: 05/30/25 08:59 Ropinirole HCl (Ropinirole Hcl 0.25 Mg Tablet) 0.25 mg PO HS [facility] Stop: 06/08/25 20:59 Sennosides (Senna Tablet) 1 tab PO QDAY PRN; Protocol PRN Reason: constipation Stop: 06/08/25 02:19 Sodium Chloride (Sodium Chloride Rt Tiana 0.9% 3 Ml Nebu) 3 ml INH PRN PRN PRN Reason: SOLN Stop: 06/08/25 01:22 Discontinued Medications Albuterol (Albuterol Rt 2.5 Mg/0.5 Ml Nebu) 10 mg INH X1 ONE Stop: 05/09/25 01:24 Last Admin: 05/09/25 01:46 Dose: 10 mg Documented By: SACHI Calcium Gluconate (Calcium Gluconate 10% Inj 1 Gm/10 Ml Vial) 1 gm IV X1 ONE Stop: 05/09/25 01:20 Last Admin: 05/09/25 02:14 Dose: 1 gm Documented By: CG Dextrose (Dextrose 50%-Water Inj 50 Ml Syringe) 50 ml IVP X1 ONE Stop: 05/09/25 01:24 Last Admin: 05/09/25 02:15 Dose: 50 ml Documented By: CG Hydromorphone HCl (Hydromorphone Inj 2 Mg/Ml Vial) 1 mg IVP Q4H PRN PRN Reason: Pain7-10 Stop: 05/14/25 02:27 Sodium Chloride (Ns) 1,000 mls @ 999 mls/hr IV .Q1H1M ONE Stop: 05/09/25 02:19 Last Infusion: 05/09/25 03:31 Dose: Infused Documented By: Admin: 05/09/25 02:30 Dose: 999 mls/hr Documented By: CG Sodium Chloride (Ns) 1,000 mls @ 999 mls/hr IV .Q1H1M ONE Stop: 05/09/25 03:36 Last Admin: 05/09/25 05:03 Dose: 999 mls/hr Documented By: CG Insulin Human Regular (Insulin Hum Regular 1 Unit/0.01 Ml (Per Unit)) 5 unit IV X1 ONE Stop: 05/09/25 01:24 Last Admin: 05/09/25 02:16 Dose: 5 unit Documented By: CG Co-signed By: DAVID Sodium Polystyrene Sulfonate (Sod Polystyrene Sulfon Susp 15 Gm/60 Ml Btl) 30 gm PO X1 ONE Stop: 05/09/25 01:21 Last Admin: 05/09/25 02:14 Dose: 30 gm Documented By: CG See above Consultations Consultation(s) initiated? (list below): Yes Consultation #1 (Physician, Specialty, Details): Discussed with Dr. Cameron for admission. Reviewed the patient?s HPI, PMHx, lab and/or radiology results. Discussed treatment plan. Will consult an admission to the hospitalist. Time: 01:27 Diagnosis Weakness Differential Diagnosis: acute myocardial infarction, anemia, hypoglycemia, hypothyroidism, rhabdomyolysis, sepsis and dehydration Most likely diagnosis given after review of the tests above:: Syncope, Hyperkalemia, Elevated Troponin Admission Indicated Admission indicated?: indicated Explain why admission is indicated or not indicated:: Elevated Troponin, Hyperkalemia Admission Request Was there a request for admission?: Yes Admission Attestation Admission request attestation: Discussed case with [] from Hospitalist service regarding admission. Discussed patients ED course, exam findings, labs, and radiology results. The Hospitalist [agrees,declines] to accept the patient for admission. Disposition Plan Disposition Plan: Admit Discharge Plan Plan Patient Disposition: Admit Acute Care w/in Hospital Problem List Clinical Impression: Hyperkalemia, Elevated troponin, Syncope
[2025-05-08 23:49] VITALS: BP 119/67; PULSE 68; RESP 18; TEMP 37; O2SAT 96; BMI 38.6
[2025-05-09] VITALS (21 sets, daily range): BP systolic 93–144; BP diastolic 58–104; PULSE 62–88; RESP 13–97; TEMP 36.6–37.2; O2SAT 89–99
[2025-05-09 00:35] LABS: Basophils # (Auto) 0.0 Thou/mm3 (0.0-0.2); Basophils % (Auto) 0 % (0-2.5); Eosinophils # (Auto) 0.0 Thou/mm3 (0.0-0.5); Eosinophils % (Auto) 0 % (0-10); Hematocrit 51.6 % (41.0-53.0); Hemoglobin 16.8 g/dL (13.5-16.0); Immature Granulocytes Auto 0.05 Thou/mm3 (0.00-0.00); Lymphocytes # (Auto) 0.9 Thou/mm3 (1.0-4.8); Lymphocytes % (Auto) 7 % (10-50); Mean Corpuscular HGB Conc 32.6 g/dl (31.0-37.0); Mean Corpuscular Hemoglobin 29.8 pg (25.0-35.0); Mean Corpuscular Volume 92 fL (80-100); Monocytes # (Auto) 0.6 Thou/mm3 (0.0-0.8); Monocytes % (Auto) 4 % (0-12); Neutrophils # (Auto) 11.6 Thou/mm3 (1.8-7.7); Neutrophils % (Auto) 89 % (37-80); Nucleated Red Blood Cell # 0.00 Thou/mm3 (0.00-0.00); Nucleated Red Blood Cell % 0 /100 WBC (0); Platelet Count 303 Thou/mm3 (140-440); RDW Standard Deviation 47.4 fL (35.1-43.9); Red Blood Count 5.64 Miln/mm3 (4.50-5.90); White Blood Count 13.1 Thou/mm3 (3.8-10.6)
[2025-05-09 00:50] LABS: INR 1.3 (0.9-1.3); Partial Thromboplastin Time 27.1 Seconds (22.0-36.0); Prothrombin Time 13.7 Seconds (9.0-12.2)
[2025-05-09 01:01] LABS: B-Type Natriuretic Peptide 55 pg/mL (0-100)
[2025-05-09 01:14] LABS: Alanine Aminotransferase 17 U/L (10-49); Albumin, Serum 4.5 gm/dL (3.5-5.0); Albumin/Globulin Ratio 2.0 (1.2-2.2); Alkaline Phosphatase 162 U/L (46-116); Anion Gap 7 (7-16); Aspartate Amino Transferase 22 U/L (0-34); BUN/Creatinine Ratio 16 Ratio (12-20); Bilirubin,Total 0.5 mg/dL (0.3-1.2); Blood Urea Nitrogen 28 mg/dL (9-23); Calcium 9.6 mg/dL (8.3-10.6); Calcium (Corrected) 9.6 mg/dL (8.5-10.1); Carbon Dioxide 26.8 mMol/L (20.0-31.0); Chloride 106 mMol/L (98-107); Creatinine (Component) 1.8 mg/dL (0.6-1.3); Estimated Creatinine Clearance 54.9 mL/min (>60); Globulin 2.2 gm/dL (2.3-3.5); Glucose 156 mg/dL (74-106); Lipase 28 U/L (12-53); Magnesium 2.1 mg/dL (1.6-2.6); Osmolality,Calculated 287 (275-295); Potassium 6.0 mMol/L (3.4-5.1); Sodium 140 mMol/L (136-145); Total Protein 6.7 gm/dL (5.7-8.2); eGFR 45 See Note
[2025-05-09 01:17] LABS: Troponin I 0.506 ng/mL (0.0-0.045)
[2025-05-09] MEDS: ALBUTEROL RT 2.5 MG/0.5 ML NEBU 10 MG INH (01:46)
[2025-05-09] MEDS: CALCIUM GLUCONATE 10% INJ 1 GM/10 ML VIAL IV (02:14)
[2025-05-09] MEDS: SOD POLYSTYRENE SULFON SUSP 15 GM/60 ML BTL 30 GM PO (02:14)
[2025-05-09] MEDS: DEXTROSE 50%-WATER INJ 50 ML SYRINGE IVP (02:15)
[2025-05-09] MEDS: INSULIN HUM REGULAR 1 UNIT/0.01 ML (PER UNIT) 5 UNIT IV (02:16)
[2025-05-09] MEDS: SODIUM CHLORIDE 0.9% 1000 ML 1,000 ML 999 ML IV ×2 (02:30→05:03)
--- NOTE | 2025-05-09 02:41 | PD.RESHP ---
Documentation for date of: 05/09/25 [facility] History of Present Illness Chief complaint: Syncope with shaking History of present illness: This 50-year-old male with past medical history of hypertension, diabetes, HFpEF (EF 55-60%), CAD, DVT and pulmonary embolism on Xarelto, status post IVC filter placement, factor V Leiden mutation, AYLEEN, BPH, hyperthyroidism presented to the ER on 05/09/2025 with generalized weakness, tiredness and shortness of breath which started few hours ago. Patient reported that he was sitting on chair and drinking his water when he accidentally spilled it while shaking and passed out. Patient's roommate was contacted on her cell phone at [phone] her name is Diana. She reported that patient passed out and fell off his chair with no obvious trauma and did not hit his head on the floor. She stated that he was incoherent and his speech and was shaking. She denied noticing any urine dribbling or fecal incontinence or tongue bite. This happened around evening 630. Patient went to [facility] this morning for evaluation of shakiness and back pain. Patient reported to have mild dizziness and headache. He also endorsed some confusion. Although, patient was not appearing in pain he reported that he has some epigastric discomfort. He denied any localized weakness, blurred vision, chest pain or dysuria. Patient follows up with chalk tester, Dr. Ortega as outpatient for his workup of chronic thromboembolic disease. In the ED, patient was normotensive, had regular pulse heart rate 64, afebrile. He was saturating well on room air. Labs were significant for leukocytosis white count 13.1, hemoglobin 16.8. Chemistry panel was significant for hyperkalemia potassium 6.0. Sodium 140. Chloride 106. Bicarb 26.8. Kidney functions revealed PRIMO with elevated BUN 28 and creatinine 1.8 with GFR 45, baseline creatinine 1.2 from 04/23/2025. Hyperglycemia with blood glucose 156. Magnesium 2.1. Troponin I 0.506 BNP 55. Urinalysis was ordered. EKG showed sinus rhythm with QTc 412. Lactic acid 2.3. Pending creatinine kinase. Lipase was negative. BNP was 55. Chest x-ray showed no acute pathology. PMH: As above PSH: IVC filter placement, cardiac angiogram Allergies: NKDA SH: Denies smoking or drinking alcohol. No history of illicit drug use Home medications: Amiodarone 200 mg once daily, metoprolol 100 mg twice daily, Lasix 20 mg once daily, lisinopril 20 mg twice daily, tamsulosin 0.4 mg at bedtime, gabapentin 300 and 3 times daily, loratadine as needed, duloxetine 30 mg once daily, finasteride once daily, ropinirole 0.25 mg once daily, metformin 500 mg once daily, meclizine 25 mg as needed atorvastatin 40 mg at bedtime, allopurinol 100 mg twice daily, Xarelto 20 mg once daily, benzonatate 200 mg as needed, acetaminophen?codeine as needed Patient is admitted for further workup and management of syncope and hyperkalemia. Review of Systems Review of Systems Systems Reviewed: All systems reviewed, normal except as documented Past Medical History Past Medical History CARDIAC: Positive Cardiac Disorders, Myocardial Infarction, Angina, Coronary Artery Disease, Atherosclerotic Heart Disease, Hypercholesterolemia, Edema, Deep Vein Thrombosis and Hypertension RESPIRATORY: Positive Asthma, Pneumonia, Pulmonary Embolism and Sleep Apnea GASTROINTESTINAL: Positive Gastrointestinal Disorders, Gastroesophageal Reflux Disease and Obesity GENITOURINARY: Positive Genitourinary Disorders, Kidney Stones and Benign Prostatic Hyperplasia MUSCULOSKELETAL: Positive Musculoskeletal Disorders and Gout ENDOCRINE: Positive Endocrine Disorders and Diabetes Mellitus Type 2 HEMATOLOGIC: Positive Blood Disorders and Clotting Problems PSYCHO/SOCIAL: Positive Anxiety OTHER HISTORY: Positive Developmental Delay and Falls Family History FAMILY HISTORY: Positive Family Cardiac Disorders, Family Cancer and Family Surgery Surgical History SURGICAL: Positive Vascular Surgery and Angiogram Exam Vital Signs Temp Pulse Resp BP Pulse Ox O2 Del Method 98.6 F 64 18 114/58 L 99 Room Air 05/09/25 01:58 05/09/25 01:58 05/09/25 01:58 05/09/25 01:58 05/09/25 01:58 05/09/25 01:58 Narrative Exam GENERAL APPEARANCE: AxOx4, generally well-appearing male in no acute distress. Saturating well on room air HEENT: NC, AT. Dry mucous membrane. EOMI, clear conjunctiva, oropharynx clear. NECK: Supple without lymphadenopathy. No stiffness or restricted ROM. HEART: Regular rate and regular rhythm, normal S1/S2, no m/r/g LUNGS: CTAB, moving air well. No crackles or wheezes are heard. ABDOMEN: Soft, epigastric tenderness, nondistended with good bowel sounds heard. BACK: No CVAT, no obvious deformity. EXTREMITIES: Without cyanosis, clubbing or edema. NEUROLOGICAL: Grossly nonfocal. Alert and oriented, moving all 4 extremities. CN not formally tested but appear grossly intact. Observed to ambulate with normal gait. Skin: Warm and dry without any rash. Psych: Conversational and cooperative Results: Labs 05/09/25 05:09 05/09/25 05:09 Labs: Short CBC 05/09/25 Range/Units 00:20 WBC 13.1 H (3.8-10.6) Thou/mm3 Hgb 16.8 H (13.5-16.0) g/dL Hct 51.6 (41.0-53.0) % Plt Count 303 D (140-440) Thou/mm3 BMP 05/09/25 00:20 Sodium 140 Potassium 6.0 H Chloride 106 Carbon Dioxide 26.8 BUN 28 H Creatinine 1.8 H Glucose 156 H Calcium 9.6 Cardiac Enzymes 05/09/25 Range/Units 00:20 Troponin I 0.506 H* (0.0-0.045) ng/mL Liver Function 05/09/25 Range/Units 00:20 Total Bilirubin 0.5 (0.3-1.2) mg/dL AST 22 (0-34) U/L ALT 17 (10-49) U/L Alkaline Phosphatase 162 H (46-116) U/L Albumin 4.5 (3.5-5.0) gm/dL Quality Measures Quality Measures VTE prophylaxis (Xarelto 20 mg) Medications Home Medications and Allergies Home Medications ?Medication ?Instructions ?Recorded ?Confirmed ?Type lisinopril 20 mg tablet 20 mg PO BID #0 tabs 08/22/17 05/09/25 History metoprolol tartrate 100 mg tablet 100 mg PO BID 03/14/21 05/09/25 History metformin 500 mg tablet 500 mg PO HS 06/28/21 05/09/25 History ropinirole 0.25 mg tablet 0.25 mg PO HS 10/03/21 05/09/25 History amiodarone 200 mg tablet 200 mg PO QDAY 04/05/22 05/09/25 History atorvastatin 40 mg tablet 40 mg PO HS 09/04/22 05/09/25 History meclizine 25 mg tablet 25 mg PO BID PRN Dizziness 09/04/22 05/09/25 History duloxetine 30 mg capsule,delayed 30 mg PO QDAY 10/24/23 05/09/25 History release finasteride 5 mg tablet 5 mg PO QDAY 10/24/23 05/09/25 History semaglutide 1 mg/dose (4 mg/3 mL) 1.75 mg subcut QWEEK 10/24/23 05/09/25 History subcutaneous pen injector (Ozempic) gabapentin 300 mg capsule 300 mg PO TID 08/07/24 05/09/25 History albuterol sulfate 90 mcg/actuation 2 puff inhalation Q4H PRN 01/07/25 05/09/25 History aerosol inhaler shortness of breath or wheezing allopurinol 100 mg tablet 200 mg PO DAILY 01/07/25 05/09/25 History benzonatate 100 mg capsule 200 mg PO TID PRN cough 01/07/25 05/09/25 History loratadine 10 mg tablet (Claritin) 10 mg PO QDAY PRN allergic symptoms 01/07/25 05/09/25 History multivitamin (Daily Multi-Vitamin 1 tab PO QAM 01/07/25 05/09/25 History tablet) ondansetron HCl 4 mg tablet 4 mg PO TID PRN nausea and vomiting 01/07/25 05/09/25 History Allergies Allergy/AdvReac Type Severity Reaction Status Date / Time No Known Allergies Allergy Verified 05/07/25 04:12 Visit Medications Acetaminophen (Acetaminophen 325 Mg Tablet) 650 mg PO Q6H PRN PRN Reason: Fever >101.5 Stop: 06/08/25 02:19 Acetaminophen (Acetaminophen 325 Mg Tablet) 650 mg PO Q6H PRN PRN Reason: PAIN SCALE 1-3 (mild Stop: 06/08/25 02:19 Amiodarone HCl (Amiodarone Hcl 200 Mg Tablet) 200 mg PO QDAY TUAN Stop: 06/08/25 08:59 Atorvastatin Calcium (Atorvastatin Calcium 20 Mg Tablet) 40 mg PO HS TUAN Stop: 06/08/25 20:59 Dextrose (Dextrose 50%-Water Inj 50 Ml Syringe) 25 ml IV Q15MIN PRN PRN Reason: BG 50-70 responsive npo pt Stop: 06/08/25 02:36 Dextrose (Dextrose 50%-Water Inj 50 Ml Syringe) 50 ml IV Q15MIN PRN PRN Reason: BG <50 OR BG <70 & pt unresponsive Stop: 06/08/25 02:36 Duloxetine HCl (Duloxetine Hcl 30 Mg Capsule) 30 mg PO QDAY [facility] Stop: 06/08/25 08:59 Finasteride (Finasteride 5 Mg Tablet) 5 mg PO QDAY [facility] Stop: 06/08/25 08:59 Glucagon (Glucagon Inj 1 Mg Vial) 1 mg IM Q15MIN PRN PRN Reason: BG <70, and no IV access Sodium Chloride (Ns) 1,000 mls @ 999 mls/hr IV .Q1H1M ONE Stop: 05/09/25 03:36 Insulin Human Lispro (Insulin Lispro (Admelog) 1 Unit/0.01 Ml Unit) [address] [facility]; Protocol Stop: 06/08/25 07:29 Ondansetron HCl (Ondansetron Inj 2 Mg/Ml Inj 2 Ml) 4 mg IVP Q6H PRN; Protocol PRN Reason: NAUSEA OR VOMITING Stop: 06/08/25 02:19 Oxycodone/Acetaminophen (Oxycodone/Apap 5/325 Tablet) 1 tab PO Q6H PRN PRN Reason: PAIN SCALE 4-6 (Moderate Stop: 05/14/25 02:27 Rivaroxaban (Rivaroxaban 10 Mg Tablet) 20 mg PO QDAY [facility] Stop: 05/30/25 08:59 Ropinirole HCl (Ropinirole Hcl 0.25 Mg Tablet) 0.25 mg PO [facility] Stop: 06/08/25 20:59 Sennosides (Senna Tablet) 1 tab PO QDAY PRN; Protocol PRN Reason: constipation Stop: 06/08/25 02:19 Sodium Chloride (Sodium Chloride Rt Tiana 0.9% 3 Ml Nebu) 3 ml INH PRN PRN PRN Reason: SOLN Stop: 06/08/25 01:22 Discontinued Medications Albuterol (Albuterol Rt 2.5 Mg/0.5 Ml Nebu) 10 mg INH X1 ONE Stop: 05/09/25 01:24 Last Admin: 05/09/25 01:46 Dose: 10 mg Calcium Gluconate (Calcium Gluconate 10% Inj 1 Gm/10 Ml Vial) 1 gm IV X1 ONE Stop: 05/09/25 01:20 Last Admin: 05/09/25 02:14 Dose: 1 gm Dextrose (Dextrose 50%-Water Inj 50 Ml Syringe) 50 ml IVP X1 ONE Stop: 05/09/25 01:24 Last Admin: 05/09/25 02:15 Dose: 50 ml Hydromorphone HCl (Hydromorphone Inj 2 Mg/Ml Vial) 1 mg IVP Q4H PRN PRN Reason: Pain7-10 Stop: 05/14/25 02:27 Sodium Chloride (Ns) 1,000 mls @ 999 mls/hr IV .Q1H1M ONE Stop: 05/09/25 02:19 Last Admin: 05/09/25 02:30 Dose: 999 mls/hr Insulin Human Regular (Insulin Hum Regular 1 Unit/0.01 Ml (Per Unit)) 5 unit IV X1 ONE Stop: 05/09/25 01:24 Last Admin: 05/09/25 02:16 Dose: 5 unit Sodium Polystyrene Sulfonate (Sod Polystyrene Sulfon Susp 15 Gm/60 Ml Btl) 30 gm PO X1 ONE Stop: 05/09/25 01:21 Last Admin: 05/09/25 02:14 Dose: 30 gm Assessment & Plan Plan This 50-year-old male with past medical history of hypertension, diabetes, HFpEF (EF 55-60%), CAD, DVT and pulmonary embolism on Xarelto, status post IVC filter placement, factor V Leiden mutation, AYLEEN, BPH, hyperthyroidism who presented to the ED due to syncope and shakiness. He was found to have hyperkalemia on blood work. Admitted for syncope and hyperkalemia. #Syncope #Likely related to polypharmacy versus dehydration ?Patient had an episode of passing out which shakiness witnessed by his roommate. Patient's roommate denied noticing any obvious trauma. Patient only recall falling and has dizziness with headache. ? Vitals showed blood pressure 114/58, heart rate 64, afebrile and saturating well on room air. ? EKG showed sinus rhythm with QTc 412. ?Patient has been taking multiple medications including gabapentin, pain medication, duloxetine, ropinirole, loratadine, Lasix which can attribute to his symptoms ? In the ED patient received 1 L NS of fluid and hyperkalemia cocktail. Plan: ? Ordered orthostatic vitals ? Follow-up on troponin I and creatinine kinase ? Ordered an additional 1 L NS x 1 ? Holding antihypertensives metoprolol, pain medications including gabapentin, antihistamine including loratadine ? Monitor for chest pain or shakiness ?Follow-up labs #Leukocytosis #Thrombocytosis #Hyperkalemia ?Likely due to medication versus PRIMO ?Potassium was 6.0. White count 13.1. Hemoglobin 16.8. ? EKG showed sinus rhythm with QTc 412. Plan ? Patient received regular insulin 5 units IV x 1, breathing treatments, calcium gluconate 1 g x 1, Kayexalate 30 mg p.o. x 1 ? 2 L NS given x 1 ? Follow-up on CMP #PRIMO likely prerenal ? Related to diuretics versus dehydration ?Patient was found to have PRIMO with elevated BUN 28 and creatinine 1.8. Plan: ? Additional bolus of IV fluid given NS x 1 ? Avoid nephrotoxic agents ? Renally dose medications ? Follow-up on renal panel #Lactic acidosis ? Likely related to dehydration vs medication like metformin use ? Lactic acid 2.3 Plan: ? IV fluid resuscitation given ?Holding metformin #Heart failure with preserved ejection fraction [EF 55-60%] ?Last echo 01/28/2025: LV size and function with EF 55-60%. Diastolic Dysfunction stage I RV size and function. Normal RVSP 25 mmhg. No RV strain Trace-Mild MR & MAC. trace TR Plan: ?Holding antihypertensive as blood pressure is stable ?Holding Lasix due to PRIMO ?Strict Intake and output ?Keep K>4, Mg>2 #History of thromboembolic disease/PE on anticoagulation ?Patient has history of DVT and pulmonary embolism, status post IVC filter, history of factor V Leiden takes Xarelto at home Plan: ?Continue Xarelto 20 mg once daily #Diabetes mellitus with neuropathy ?Patient takes metformin 500 mg once daily at home Plan: ?Holding gabapentin due to syncope ?Holding metformin due to PRIMO ?Continue ropinirole 0.25 mg p.o. at bedtime ?SSI with Accu-Cheks ?Hypoglycemia protocol in place #Elevated troponins likely supply/demand ischemia ?Troponin 0.506 Plan: ? Troponin I every 6 hourly ? Patient reported to have mild chest pain however EKG did not show acute ST-T changes. ? Monitor vitals closely #Hypertension #Coronary artery disease #Hyperlipidemia ?Continue amiodarone 200 mg daily ?Holding metoprolol tartrate 100 mg twice daily ?Holding lisinopril 20 mg daily ?Continue atorvastatin 40 mg at bedtime #BPH ?On tamsulosin 0.4 mg daily and finasteride Plan: ?Continue finasteride #AYLEEN ? Patient uses CPAP machine at night Plan: ? Continue CPAP at night Health maintenance Diet: Cardiac GI prophylaxis: Protonix 40 mg IV daily DVT prophylaxis: Xarelto 20 mg once a day CODE STATUS: Full code Disposition: Patient is admitted for further workup and management of syncope and hyperkalemia. Patient was seen and discussed with attending physician, Dr.Macaranas Dr. Nisha MD, PGY 2 Attending Provider Attestation/Addendum 50-year-old male patient with history of PE and DVT, factor V Leiden mutation on anticoagulation was admitted for syncopal episode. He was found to have acute kidney injury. He has sleep. Patient appears to have prerenal PRIMO. No arrhythmias recorded so far. Patient has mildly elevated troponin levels. He denies chest pain. He is not particularly short of breath. Patient is able to answer appropriately. Denies drug use no alcohol use. I discussed with and supervised the resident physician who took care of this patient. I agree with the assessment and plan as above.
[2025-05-09 03:34] LABS: Lactate (Lactic Acid) 2.3 mMol/L (0.4-2.0)
--- NOTE | 2025-05-09 05:20 | PRELIM_ITS ---
CT scan of the head without intravenous contrast (axial sections with sagittal and coronal reformats). May 09, 2025 at 0405 hours Clinical History: Syncope. Comparison: Compared with the prior study dated March 14, 2021. Findings: CT of the brain obtained without injection of any intravenous contrast shows normal brain parenchyma and ventricles are seen. No evidence of any intracranial bleed, mass effect or shift of the midline structures. Normal- sized ventricles are seen. Normal paranasal sinuses and normal mastoid air cells are seen. IMPRESSION: Normal brain scan with no evidence of any intracranial bleed is seen. No other abnormalities seen. Report Electronically Signed By: Brown Solomon 05/09/2025 5:20:06 AM [EST]
[2025-05-09 05:38] LABS: Lactate (Lactic Acid) 2.8 mMol/L (0.4-2.0)
[2025-05-09 05:42] LABS: Basophils # (Auto) 0.0 Thou/mm3 (0.0-0.2); Basophils % (Auto) 0 % (0-2.5); Eosinophils # (Auto) 0.0 Thou/mm3 (0.0-0.5); Eosinophils % (Auto) 0 % (0-10); Hematocrit 50.0 % (41.0-53.0); Hemoglobin 16.2 g/dL (13.5-16.0); Immature Granulocytes Auto 0.07 Thou/mm3 (0.00-0.00); Lymphocytes # (Auto) 0.6 Thou/mm3 (1.0-4.8); Lymphocytes % (Auto) 4 % (10-50); Mean Corpuscular HGB Conc 32.4 g/dl (31.0-37.0); Mean Corpuscular Hemoglobin 29.7 pg (25.0-35.0); Mean Corpuscular Volume 92 fL (80-100); Monocytes # (Auto) 1.0 Thou/mm3 (0.0-0.8); Monocytes % (Auto) 7 % (0-12); Neutrophils # (Auto) 11.5 Thou/mm3 (1.8-7.7); Neutrophils % (Auto) 88 % (37-80); Nucleated Red Blood Cell # 0.00 Thou/mm3 (0.00-0.00); Nucleated Red Blood Cell % 0 /100 WBC (0); Platelet Count 286 Thou/mm3 (140-440); RDW Standard Deviation 47.5 fL (35.1-43.9); Red Blood Count 5.46 Miln/mm3 (4.50-5.90); White Blood Count 13.1 Thou/mm3 (3.8-10.6)
[2025-05-09 06:31] LABS: Alanine Aminotransferase 15 U/L (10-49); Albumin, Serum 3.8 gm/dL (3.5-5.0); Albumin/Globulin Ratio 1.6 (1.2-2.2); Alkaline Phosphatase 151 U/L (46-116); Anion Gap 7 (7-16); Aspartate Amino Transferase 14 U/L (0-34); BUN/Creatinine Ratio 16 Ratio (12-20); Bilirubin,Total 0.4 mg/dL (0.3-1.2); Blood Urea Nitrogen 28 mg/dL (9-23); Calcium 8.7 mg/dL (8.3-10.6); Calcium (Corrected) 8.9 mg/dL (8.5-10.1); Carbon Dioxide 23.6 mMol/L (20.0-31.0); Chloride 111 mMol/L (98-107); Creatine Kinase 72 U/L (34-171); Creatinine (Component) 1.8 mg/dL (0.6-1.3); Estimated Creatinine Clearance 54.9 mL/min (>60); Globulin 2.4 gm/dL (2.3-3.5); Glucose 170 mg/dL (74-106); Magnesium 2.1 mg/dL (1.6-2.6); Osmolality,Calculated 292 (275-295); Potassium 4.4 mMol/L (3.4-5.1); Sodium 142 mMol/L (136-145); Total Protein 6.2 gm/dL (5.7-8.2); eGFR 45 See Note
[2025-05-09 06:33] LABS: Reflex Lactate? Y
[2025-05-09] MEDS: RINGERS LACTATED 1000 ML 1,000 ML 75 ML IV (06:49)
--- NOTE | 2025-05-09 07:38 | PC.NURSE ---
report called to floor nurse, BETTINA Josue at this time
[2025-05-09] MEDS: RINGERS LACTATED 1000 ML 1,000 ML 999 ML IV (08:09)
[2025-05-09 08:35] LABS: Reflex Lactate? Y
[2025-05-09] MEDS: RIVAROXABAN 10 MG TABLET 20 MG PO (08:44)
[2025-05-09] MEDS: AMIODARONE HCL 200 MG TABLET PO (08:45)
[2025-05-09] MEDS: FINASTERIDE 5 MG TABLET PO (08:45)
[2025-05-09] MEDS: DULoxetine HCL 30 MG CAPSULE PO (08:45)
[2025-05-09 10:17] LABS: Lactic Acid, 3 HR 3.1 mMol/L (0.4-2.0)
--- NOTE | 2025-05-09 10:38 | PD.RESPRO ---
Documentation for date of: 05/09/25 Subjective Subjective Interval history: Overnight admission. Seen and examined at bedside and presently does not have any complaints. States that he was outside for a couple of hours day prior to admission but was drinking water. Will order an echo for further evaluation of syncope and follow-up results. Otherwise, vital signs stable, CBC shows persistent mild leukocytosis, chronically elevated hemoglobin at 16, repeat lactate continues to increase despite IVF, but troponin downtrended and peaked at 0.506. Given that lactate continues to elevate we will start maintenance IVF at low rate of 50 cc/h. Exam Vital Signs Temp Pulse Resp BP Pulse Ox O2 Del Method 97.9 F 80 23 H 144/70 H 97 Room Air 05/09/25 08:00 05/09/25 08:45 05/09/25 08:16 05/09/25 08:45 05/09/25 08:16 05/09/25 05:00 Narrative Exam General: AOx3, no acute distress, able to speak full sentences HEENT: NC/AT, mucous membranes moist, bilateral sclera anicteric Cardiovascular: regular rate and rhythm, S1/S2 present, no murmurs appreciated Pulmonary: clear to auscultation bilaterally, no rales/rhonchi/wheezes Abdominal: soft, non-tender, non-distended, no rebound/guarding, normal bowel sounds present Musculoskeletal: normal ROM, trace to 1+ pitting edema Skin: warm and dry, intact, no rashes Neuro: CN II-XII intact, no focal deficits Objective Labs 05/10/25 04:43 05/10/25 04:43 Labs: Laboratory Results - last 24 hr 05/09/25 05/09/25 05/09/25 00:20 03:06 05:09 WBC 13.1 H 13.1 H RBC 5.64 5.46 Hgb 16.8 H 16.2 H Hct 51.6 50.0 MCV 92 92 MCH 29.8 29.7 MCHC 32.6 32.4 RDW Std Deviation 47.4 H 47.5 H Plt Count 303 D 286 Neut % (Auto) 89 H 88 H Lymph % (Auto) 7 L 4 L [place] % (Auto) 4 7 Eos % (Auto) 0 0 Baso % (Auto) 0 0 Neut # (Auto) 11.6 H 11.5 H Lymph # (Auto) 0.9 L 0.6 L [place] # (Auto) 0.6 1.0 H Eos # (Auto) 0.0 0.0 Baso # (Auto) 0.0 0.0 Immature Gran # (Auto) 0.05 H 0.07 H Absolute Nucleated RBC 0.00 0.00 Immature Gran % 0 1 H Nucleated RBC % 0 0 PT 13.7 H INR 1.3 APTT 27.1 Sodium 140 142 Potassium 6.0 H 4.4 D Chloride 106 111 H Carbon Dioxide 26.8 23.6 Anion Gap 7 7 BUN 28 H 28 H Creatinine 1.8 H 1.8 H Estim Creat Clear Calc 54.9 L 54.9 L eGFR 45 L 45 L BUN/Creatinine Ratio 16 16 Glucose 156 H 170 H Calculated Osmolality 287 292 Lactic Acid 2.3 H 2.8 H Calcium 9.6 8.7 Corrected Calcium 9.6 8.9 Magnesium 2.1 2.1 Total Bilirubin 0.5 0.4 AST 22 14 ALT 17 15 Alkaline Phosphatase 162 H 151 H Total Creatine Kinase 72 Troponin I 0.506 H* B-Natriuretic Peptide 55 Total Protein 6.7 6.2 Albumin 4.5 3.8 D Globulin 2.2 L 2.4 Albumin/Globulin Ratio 2.0 1.6 Lipase 28 05/09/25 10:06 WBC RBC Hgb Hct MCV MCH MCHC RDW Std Deviation Plt Count Neut % (Auto) Lymph % (Auto) [place] % (Auto) Eos % (Auto) Baso % (Auto) Neut # (Auto) Lymph # (Auto) [place] # (Auto) Eos # (Auto) Baso # (Auto) Immature Gran # (Auto) Absolute Nucleated RBC Immature Gran % Nucleated RBC % PT INR APTT Sodium Potassium Chloride Carbon Dioxide Anion Gap BUN Creatinine Estim Creat Clear Calc eGFR BUN/Creatinine Ratio Glucose Calculated Osmolality Lactic Acid 3.1 H Calcium Corrected Calcium Magnesium Total Bilirubin AST ALT Alkaline Phosphatase Total Creatine Kinase Troponin I B-Natriuretic Peptide Total Protein Albumin Globulin Albumin/Globulin Ratio Lipase Quality Measures Quality Measures VTE prophylaxis (Xarelto 20 mg) Assessment & Plan Assessment Current Active Medications: Generic Name Dose Route Start Last Admin Trade Name Freq PRN Reason Stop Dose Admin Acetaminophen 650 mg 05/09/25 02:20 Acetaminophen 325 Mg Tablet PO 06/08/25 02:19 Q6H PRN Fever >101.5 Acetaminophen 650 mg 05/09/25 02:20 Acetaminophen 325 Mg Tablet PO 06/08/25 02:19 Q6H PRN PAIN SCALE 1-3 (mild Amiodarone HCl 200 mg 05/09/25 09:00 05/09/25 08:45 Amiodarone Hcl 200 Mg Tablet PO 06/08/25 08:59 200 mg QDAY TUAN Administration Atorvastatin Calcium 40 mg 05/09/25 21:00 Atorvastatin Calcium 20 Mg Tablet PO 06/08/25 20:59 HS TUAN Dextrose 25 ml 05/09/25 02:37 Dextrose 50%-Water Inj 50 Ml Syringe IV 06/08/25 02:36 Q15MIN PRN BG 50-70 responsive npo pt Dextrose 50 ml 05/09/25 02:37 Dextrose 50%-Water Inj 50 Ml Syringe IV 06/08/25 02:36 Q15MIN PRN BG <50 OR BG <70 & pt unresponsive Duloxetine HCl 30 mg 05/09/25 09:00 05/09/25 08:45 Duloxetine Hcl 30 Mg Capsule PO 06/08/25 08:59 30 mg QDAY TUAN Administration Finasteride 5 mg 05/09/25 09:00 05/09/25 08:45 Finasteride 5 Mg Tablet PO 06/08/25 08:59 5 mg QDAY TUAN Administration Glucagon 1 mg 05/09/25 02:37 Glucagon Inj 1 Mg Vial IM Q15MIN PRN BG <70, and no IV access Lactated Ringer's 1,000 mls @ 75 mls/hr 05/09/25 04:06 05/09/25 07:50 Lactated Ringers IV 06/08/25 04:05 0 mls/hr .[id number] TUAN Infusion Lactated Ringer's 500 mls @ 80 mls/hr 05/09/25 08:48 05/09/25 09:27 Lactated Ringers IV 06/08/25 08:47 Not Given .[id number] TUAN Lactated Ringer's 1,000 mls @ 50 mls/hr 05/09/25 10:32 Lactated Ringers IV 05/10/25 06:31 .Q20H ONE Insulin Human Lispro 0 unit 05/09/25 07:30 05/09/25 08:36 Insulin Lispro (Admelog) 1 Unit/0.01 Ml Unit SC 06/08/25 07:29 Not Given AC TUAN Protocol Ondansetron HCl 4 mg 05/09/25 02:20 Ondansetron Inj 2 Mg/Ml Inj 2 Ml IVP 06/08/25 02:19 Q6H PRN NAUSEA OR VOMITING Protocol Oxycodone/Acetaminophen 1 tab 05/09/25 02:28 Oxycodone/Apap 5/325 Tablet PO 05/14/25 02:27 Q6H PRN PAIN SCALE 4-6 (Moderate Rivaroxaban 20 mg 05/09/25 09:00 05/09/25 08:44 Rivaroxaban 10 Mg Tablet PO 05/30/25 08:59 20 mg QDAY TUAN Administration Ropinirole HCl 0.25 mg 05/09/25 21:00 Ropinirole Hcl 0.25 Mg Tablet PO 06/08/25 20:59 HS TUAN Sennosides 1 tab 05/09/25 02:20 Senna Tablet PO 06/08/25 02:19 QDAY PRN constipation Protocol Sodium Chloride 3 ml 05/09/25 01:23 Sodium Chloride Rt Tiana 0.9% 3 Ml Nebu INH 06/08/25 01:22 PRN PRN SOLN Plan Misbah Mcnulty is a 50-year-old male with past medical history of hypertension, type 2 diabetes mellitus, HFpEF (EF 55-60%), CAD, DVT and PE status post IVC filter, factor V Leiden mutation, AYLEEN, and BPH who is admitted for syncope and hyperkalemia. #Syncope likely polypharmacy versus dehydration One episode of passing out with associated shakiness witnessed by roommate. Remained denied any obvious trauma and patient himself cannot recall falling. EKG showed NSR with QTc of 412. He was noted to have multiple medications including gabapentin, duloxetine, ropinirole, loratadine, baclofen, and meclizine. In ED patient received 1 L NS of fluid and hyperkalemia cocktail. Troponin peaked and CK within normal limits. ? Follow-up orthostatic vitals ? Follow-up echo ? Ordered an additional 1 L NS x 1 ? Holding antihypertensives metoprolol, pain medications including gabapentin, antihistamine including loratadine ? Monitor for chest pain or shakiness #Hyperkalemia, resolved Likely due to medication versus PRIMO. K 6.0 that resolved after treatment. EKG showed sinus rhythm with QTc 412. Received regular insulin 5 units IV x 1, breathing treatments, calcium gluconate 1 g x 1, Kayexalate 30 mg p.o. x 1 #PRIMO likely prerenal secondary to diuretics versus dehydration Found to have PRIMO with elevated BUN 28 and creatinine 1.8. Received 1 L IVF in ED and an additional 1 L afterwards. ? Avoid nephrotoxic agents ? Renally dose medications #Lactic acidosis Likely related to dehydration vs medication like metformin use. ? IV fluid resuscitation given ? Holding metformin ? Follow-up lactate #Heart failure with preserved ejection fraction [EF 55-60%] Echo 01/28/2025: LV size and function with EF 55-60%. Diastolic Dysfunction stage I. RV size and function. Normal RVSP 25 mmHg. ? Holding antihypertensive as blood pressure is stable ? Holding Lasix due to PRIMO ? Strict Intake and output ? Keep K >4, Mg >2 #History of thromboembolic disease/PE on anticoagulation History of DVT and pulmonary embolism, status post IVC filter, history of factor V Leiden takes Xarelto at home ? Continue Xarelto 20 mg once daily #Type 2 diabetes mellitus with neuropathy Takes metformin 500 mg once daily at home ? Holding gabapentin due to syncope ? Holding metformin due to PRIMO ? Continue ropinirole 0.25 mg p.o. at bedtime ? SSI with Accu-Cheks ? Hypoglycemia protocol in place #Elevated troponins likely supply/demand ischemia Reported mild chest pain however EKG did not show acute ST-T changes. ? Monitor vitals closely #Atrial fibrillation #Hypertension #Coronary artery disease #Hyperlipidemia ? Continue amiodarone 200 mg daily ? Holding metoprolol tartrate 100 mg twice daily ? Holding lisinopril 20 mg daily ? Continue atorvastatin 40 mg at bedtime #BPH On tamsulosin 0.4 mg daily and finasteride ? Continue finasteride #AYLEEN Uses CPAP machine at night ? Continue CPAP at night Health maintenance: Disposition: Patient is admitted for further workup and management of syncope and hyperkalemia Diet: Cardiac GI prophylaxis: Protonix 40 mg IV daily DVT prophylaxis: Xarelto 20 mg once a day CODE STATUS: Full code ----- Plan discussed with attending physician Dr. Arthur Gasca MD PGY-1 Internal Medicine Attending Provider Attestation/Addendum I have examined the patient, reviewed labs and imaging findings, discussed the case with the resident(s), and reviewed entered orders. I agree with the plan of care as outlined in this note, with these additional summaries/recommendations: Patient seen at bedside. He currently denies lightheadedness, dizziness, and no blurry vision. Discussed with patient that he was diagnosed with syncope. He reports he was sitting out in the sun yesterday and most likely vasovagal syncope. Nonetheless discussed with patient we need to rule out cardiac etiology. Continue to monitor on telemetry although no evidence of arrhythmia yet. Order echocardiogram and orthostatic vital signs. Order physical therapy. Lactic acidosis present most likely secondary to metformin versus dehydration. Continue IV fluids. Patient also diagnosed with acute kidney injury most likely secondary to prerenal azotemia. Avoid nephrotoxic agents and renally dose medications. Repeat renal panel in AM. We will be cautious with fluids given patient's history of HFpEF. Hold home Lasix for now. Patient endorses a history of pulmonary embolism, continue home Xarelto. Start insulin sliding scale for diabetes mellitus type 2 with Accu-Cheks. Target blood sugar of 140-180 while hospitalized. We will slowly reinstitute home antihypertensives. Continue CPAP at night for history of obstructive sleep apnea. Patient was also noted to have elevated troponins on admission which are always chronically elevated per chart review. Continue amiodarone for atrial fibrillation. Patient updated on the plan and in agreement. All questions answered to satisfaction. Please see residents note for additional details and management. Dr. Arthur MD
[2025-05-09] MEDS: RINGERS LACTATED 1000 ML 1,000 ML 50 ML IV (11:04)
[2025-05-09] MEDS: INSULIN LISPRO (AdmeLOG) 1 UNIT/0.01 ML UNIT SC (11:41)
[2025-05-09 12:31] LABS: Troponin I 0.480 ng/mL (0.0-0.045)
[2025-05-09 15:42] LABS: Lactate (Lactic Acid) 2.5 mMol/L (0.4-2.0)
--- NOTE | 2025-05-09 16:23 | PC.SS ---
Addendum entered by Tresa Crawford 05/10/25 15:28: Pt is a 50 yo male, who uses a cane to ambulate, but does not use any other type of DME. Pt reports he has a roommate and she is willing to care for him if need be. Roommate is Diana Warner [phone]. Pt reports she would be his decision maker if he could no longer make decisions for himself. Pt reports he is a [employer] with limitations. Pt reports he does his own ADLs, bathes and cooks on his own. Pt reports he would need transporation home and at this time he does not know if he would need a SNF upon d/c, but would rather go home if offered. Pt has support at home and will return home upon d/c. No DME needed. Original Note: Per rounding meeting, pt is needing an ECHO. No d/c date at this time. Pt is from home
[2025-05-09 18:40] LABS: Reflex Lactate? Y
[2025-05-09 19:23] LABS: Lactic Acid, 3 HR 2.0 mMol/L (0.4-2.0)
[2025-05-09] MEDS: ATORVASTATIN CALCIUM 20 MG TABLET 40 MG PO (20:00)
[2025-05-10] VITALS (9 sets, daily range): BP systolic 117–145; BP diastolic 75–89; PULSE 62–90; RESP 16–96; TEMP 36–36.7; O2SAT 97–99; BMI 38.6
[2025-05-10 05:59] LABS: Basophils # (Auto) 0.0 Thou/mm3 (0.0-0.2); Basophils % (Auto) 0 % (0-2.5); Eosinophils # (Auto) 0.0 Thou/mm3 (0.0-0.5); Eosinophils % (Auto) 0 % (0-10); Hematocrit 47.2 % (41.0-53.0); Hemoglobin 15.9 g/dL (13.5-16.0); Immature Granulocytes Auto 0.02 Thou/mm3 (0.00-0.00); Lymphocytes # (Auto) 1.7 Thou/mm3 (1.0-4.8); Lymphocytes % (Auto) 19 % (10-50); Mean Corpuscular HGB Conc 33.7 g/dl (31.0-37.0); Mean Corpuscular Hemoglobin 30.1 pg (25.0-35.0); Mean Corpuscular Volume 89 fL (80-100); Monocytes # (Auto) 1.0 Thou/mm3 (0.0-0.8); Monocytes % (Auto) 11 % (0-12); Neutrophils # (Auto) 6.4 Thou/mm3 (1.8-7.7); Neutrophils % (Auto) 70 % (37-80); Nucleated Red Blood Cell # 0.00 Thou/mm3 (0.00-0.00); Nucleated Red Blood Cell % 0 /100 WBC (0); Platelet Count 260 Thou/mm3 (140-440); RDW Standard Deviation 46.2 fL (35.1-43.9); Red Blood Count 5.29 Miln/mm3 (4.50-5.90); White Blood Count 9.1 Thou/mm3 (3.8-10.6)
[2025-05-10 06:17] LABS: INR 1.2 (0.9-1.3); Partial Thromboplastin Time 31.1 Seconds (22.0-36.0); Prothrombin Time 12.5 Seconds (9.0-12.2)
[2025-05-10 06:29] LABS: Alanine Aminotransferase 16 U/L (10-49); Albumin, Serum 3.4 gm/dL (3.5-5.0); Albumin/Globulin Ratio 1.6 (1.2-2.2); Alkaline Phosphatase 137 U/L (46-116); Anion Gap 7 (7-16); Aspartate Amino Transferase 14 U/L (0-34); BUN/Creatinine Ratio 20 Ratio (12-20); Bilirubin,Total 0.5 mg/dL (0.3-1.2); Blood Urea Nitrogen 20 mg/dL (9-23); Calcium 8.3 mg/dL (8.3-10.6); Calcium (Corrected) 8.8 mg/dL (8.5-10.1); Carbon Dioxide 25.3 mMol/L (20.0-31.0); Chloride 108 mMol/L (98-107); Creatinine (Component) 1.0 mg/dL (0.6-1.3); Estimated Creatinine Clearance 97.0 mL/min (>60); Globulin 2.1 gm/dL (2.3-3.5); Glucose 107 mg/dL (74-106); Magnesium 2.0 mg/dL (1.6-2.6); Osmolality,Calculated 282 (275-295); Phosphorous 3.1 mg/dL (2.4-5.1); Potassium 3.8 mMol/L (3.4-5.1); Sodium 140 mMol/L (136-145); Total Protein 5.5 gm/dL (5.7-8.2); eGFR > 60 See Note
[2025-05-10] MEDS: RIVAROXABAN 10 MG TABLET 20 MG PO (08:39)
[2025-05-10] MEDS: DULoxetine HCL 30 MG CAPSULE PO (08:39)
[2025-05-10] MEDS: FINASTERIDE 5 MG TABLET PO (08:39)
[2025-05-10] MEDS: AMIODARONE HCL 200 MG TABLET PO (08:40)
--- NOTE | 2025-05-10 11:01 | ESPR_ITS ---
Documentation for date of: 05/10/25 Subjective Subjective Interval history: Patient seen and examined at bedside. No acute overnight events. Labs and vitals are stable leukocytosis has resolved. Lactic acid within normal limits. PRIMO related to dehydration resolved Will continue current management, pending echo to rule out cardiac cause of syncope. For now continue with amiodarone, plan is to have a PT evaluation, patient may need placement upon discharge. Today upon my evaluation patient was hemodynamically stable, orthostatic vitals were negative, patient denies any dizziness, shortness of breath, headache, or any other associated symptoms. Exam Vital Signs Temp Pulse Resp BP Pulse Ox O2 Del Method FiO2 96.9 F 70 16 128/76 98 Room Air 05/10/25 08:00 05/10/25 10:23 05/10/25 10:23 05/10/25 08:40 05/10/25 08:00 05/10/25 08:00 05/10/25 00:40 Narrative Exam General: AOx3, no acute distress, able to speak full sentences HEENT: NC/AT, mucous membranes moist, bilateral sclera anicteric Cardiovascular: regular rate and rhythm, S1/S2 present, no murmurs appreciated Pulmonary: clear to auscultation bilaterally, no rales/rhonchi/wheezes Abdominal: soft, non-tender, non-distended, no rebound/guarding, normal bowel sounds present Musculoskeletal: normal ROM, trace to 1+ pitting edema Skin: warm and dry, intact, no rashes Neuro: CN II-XII intact, no focal deficits Objective Labs 05/11/25 04:50 05/11/25 04:50 Labs: Laboratory Results - last 24 hr 05/09/25 05/09/25 05/09/25 10:06 15:34 19:13 WBC RBC Hgb Hct MCV MCH MCHC RDW Std Deviation Plt Count Neut % (Auto) Lymph % (Auto) [place] % (Auto) Eos % (Auto) Baso % (Auto) Neut # (Auto) Lymph # (Auto) [place] # (Auto) Eos # (Auto) Baso # (Auto) Immature Gran # (Auto) Absolute Nucleated RBC Immature Gran % Nucleated RBC % PT INR APTT Sodium Potassium Chloride Carbon Dioxide Anion Gap BUN Creatinine Estim Creat Clear Calc eGFR BUN/Creatinine Ratio Glucose Calculated Osmolality Lactic Acid 2.5 H 2.0 Calcium Corrected Calcium Phosphorus Magnesium Total Bilirubin AST ALT Alkaline Phosphatase Troponin I 0.480 H* Total Protein Albumin Globulin Albumin/Globulin Ratio 05/10/25 04:43 WBC 9.1 RBC 5.29 Hgb 15.9 Hct 47.2 MCV 89 MCH 30.1 MCHC 33.7 RDW Std Deviation 46.2 H Plt Count 260 Neut % (Auto) 70 Lymph % (Auto) 19 [place] % (Auto) 11 Eos % (Auto) 0 Baso % (Auto) 0 Neut # (Auto) 6.4 Lymph # (Auto) 1.7 [place] # (Auto) 1.0 H Eos # (Auto) 0.0 Baso # (Auto) 0.0 Immature Gran # (Auto) 0.02 H Absolute Nucleated RBC 0.00 Immature Gran % 0 Nucleated RBC % 0 PT 12.5 H INR 1.2 APTT 31.1 Sodium 140 Potassium 3.8 D Chloride 108 H Carbon Dioxide 25.3 Anion Gap 7 BUN 20 Creatinine 1.0 D Estim Creat Clear Calc 97.0 eGFR > 60 BUN/Creatinine Ratio 20 Glucose 107 H D Calculated Osmolality 282 Lactic Acid Calcium 8.3 Corrected Calcium 8.8 Phosphorus 3.1 Magnesium 2.0 Total Bilirubin 0.5 AST 14 ALT 16 Alkaline Phosphatase 137 H Troponin I Total Protein 5.5 L Albumin 3.4 L Globulin 2.1 L Albumin/Globulin Ratio 1.6 Quality Measures Quality Measures VTE prophylaxis (Xarelto 20 mg) Assessment & Plan Assessment Current Active Medications: Generic Name Dose Route Start Last Admin Trade Name Freq PRN Reason Stop Dose Admin Acetaminophen 650 mg 05/09/25 02:20 Acetaminophen 325 Mg Tablet PO 06/08/25 02:19 Q6H PRN Fever >101.5 Acetaminophen 650 mg 05/09/25 02:20 Acetaminophen 325 Mg Tablet PO 06/08/25 02:19 Q6H PRN PAIN SCALE 1-3 (mild Amiodarone HCl 200 mg 05/09/25 09:00 05/10/25 08:40 Amiodarone Hcl 200 Mg Tablet PO 06/08/25 08:59 200 mg QDAY TUAN Administration Atorvastatin Calcium 40 mg 05/09/25 21:00 05/09/25 20:00 Atorvastatin Calcium 20 Mg Tablet PO 06/08/25 20:59 40 mg HS TUAN Administration Dextrose 25 ml 05/09/25 02:37 Dextrose 50%-Water Inj 50 Ml Syringe IV 06/08/25 02:36 Q15MIN PRN BG 50-70 responsive npo pt Dextrose 50 ml 05/09/25 02:37 Dextrose 50%-Water Inj 50 Ml Syringe IV 06/08/25 02:36 Q15MIN PRN BG <50 OR BG <70 & pt unresponsive Duloxetine HCl 30 mg 05/09/25 09:00 05/10/25 08:39 Duloxetine Hcl 30 Mg Capsule PO 06/08/25 08:59 30 mg QDAY TUAN Administration Finasteride 5 mg 05/09/25 09:00 05/10/25 08:39 Finasteride 5 Mg Tablet PO 06/08/25 08:59 5 mg QDAY TUAN Administration Glucagon 1 mg 05/09/25 02:37 Glucagon Inj 1 Mg Vial IM Q15MIN PRN BG <70, and no IV access Insulin Human Lispro 0 unit 05/09/25 07:30 05/10/25 07:42 Insulin Lispro (Admelog) 1 Unit/0.01 Ml Unit SC 06/08/25 07:29 Not Given AC TUAN Protocol Ondansetron HCl 4 mg 05/09/25 02:20 Ondansetron Inj 2 Mg/Ml Inj 2 Ml IVP 06/08/25 02:19 Q6H PRN NAUSEA OR VOMITING Protocol Oxycodone/Acetaminophen 1 tab 05/09/25 02:28 Oxycodone/Apap 5/325 Tablet PO 05/14/25 02:27 Q6H PRN PAIN SCALE 4-6 (Moderate Rivaroxaban 20 mg 05/09/25 09:00 05/10/25 08:39 Rivaroxaban 10 Mg Tablet PO 05/30/25 08:59 20 mg QDAY TUAN Administration Ropinirole HCl 0.25 mg 05/09/25 21:00 05/09/25 20:00 Ropinirole Hcl 0.25 Mg Tablet PO 06/08/25 20:59 0.25 mg HS TUAN Administration Sennosides 1 tab 05/09/25 02:20 Senna Tablet PO 06/08/25 02:19 QDAY PRN constipation Protocol Sodium Chloride 3 ml 05/09/25 01:23 Sodium Chloride Rt Tiana 0.9% 3 Ml Nebu INH 06/08/25 01:22 PRN PRN SOLN Plan Misbah Mcnulty is a 50-year-old male with past medical history of hypertension, type 2 diabetes mellitus, HFpEF (EF 55-60%), CAD, DVT and PE status post IVC filter, factor V Leiden mutation, AYLEEN, and BPH who is admitted for syncope and hyperkalemia. #Syncope likely polypharmacy versus dehydration One episode of passing out with associated shakiness witnessed by roommate. Remained denied any obvious trauma and patient himself cannot recall falling. EKG showed NSR with QTc of 412. He was noted to have multiple medications including gabapentin, duloxetine, ropinirole, loratadine, baclofen, and meclizine. In ED patient received 1 L NS of fluid and hyperkalemia cocktail. Troponin peaked and CK within normal limits. ? Orthostatic vitals negative ? Follow-up echo to rule out cardiac cause of syncope ? Holding antihypertensives metoprolol, ? Pain medications including gabapentin, antihistamine including loratadine #Hyperkalemia, resolved Likely due to medication versus PRIMO. K 6.0 that resolved after treatment. EKG showed sinus rhythm with QTc 412. Received regular insulin 5 units IV x 1, breathing treatments, calcium gluconate 1 g x 1, Kayexalate 30 mg p.o. x 1 ? Continue monitor electrolytes #PRIMO likely prerenal secondary to diuretics versus dehydration resolved Found to have PRIMO with elevated BUN 28 and creatinine 1.8. Received 1 L IVF in ED and an additional 1 L afterwards. ? Avoid nephrotoxic agents ? Renally dose medications #Lactic acidosis resolved Likely related to dehydration vs medication like metformin use. ? IV fluid resuscitation given ? Holding metformin #Heart failure with preserved ejection fraction [EF 55-60%] Echo 01/28/2025: LV size and function with EF 55-60%. Diastolic Dysfunction stage I. RV size and function. Normal RVSP 25 mmHg. ? Holding antihypertensive as blood pressure is stable ? Holding Lasix ? Strict Intake and output ? Keep K >4, Mg >2 #History of thromboembolic disease/PE on anticoagulation History of DVT and pulmonary embolism, status post IVC filter, history of factor V Leiden takes Xarelto at home ? Continue Xarelto 20 mg once daily #Type 2 diabetes mellitus with neuropathy Takes metformin 500 mg once daily at home. ? Continue ropinirole 0.25 mg p.o. at bedtime ? SSI with Accu-Cheks ? Hypoglycemia protocol in place #Atrial fibrillation #Hypertension #Coronary artery disease #Hyperlipidemia ? Continue amiodarone 200 mg daily ? Holding metoprolol tartrate 100 mg twice daily ? Holding lisinopril 20 mg daily ? Continue atorvastatin 40 mg at bedtime #BPH On tamsulosin 0.4 mg daily and finasteride ? Continue finasteride #AYLEEN Uses CPAP machine at night ? Continue CPAP at night #Diabetic neuropathy ? Restart gabapentin on low-dose 100 3 times daily #Elevated troponins likely supply/demand ischemia -Trop peaked Health maintenance: Disposition: Patient is admitted for further workup and management of syncope, pending echo Diet: Cardiac GI prophylaxis: Protonix 40 mg IV daily DVT prophylaxis: Xarelto 20 mg once a day CODE STATUS: Full code Patient care was discussed with attending physician Dr. Arthur Castellon MD PGY-2 refeeding Attending Provider Attestation/Addendum I have examined the patient, reviewed labs and imaging findings, discussed the case with the resident(s), and reviewed entered orders. I agree with the plan of care as outlined in this note, with these additional summaries/recommendations: Patient seen at bedside. No acute overnight events. Patient has no acute concerns today. Patient diagnosed with syncope. Unlikely to be cardiac in origin although we are awaiting echocardiogram. No evidence of arrhythmia thus far on telemetry. Most likely vasovagal/reflex syncope secondary to being out in the sun. Echocardiogram pending. Orthostatic vital signs negative. Lactic acidosis present although resolving. Most likely secondary to metformin versus dehydration. Continue IV fluids. Patient also diagnosed with acute kidney injury secondary to prerenal azotemia. Avoid nephrotoxic agents and renally dose medications. Repeat renal panel in AM. We will be cautious with fluids given patient's history of HFpEF. Hold home Lasix for now. Patient endorses a history of pulmonary embolism, continue home Xarelto. Insulin sliding scale for diabetes mellitus type 2 with Accu-Cheks. Target blood sugar of 140-180 while hospitalized. We will slowly reinstitute home antihypertensives. Continue CPAP at night for history of obstructive sleep apnea. Patient was also noted to have elevated troponins on admission which are always chronically elevated per chart review. No further work-up needed at this time and patient advised to follow-up with outpatient extension service specialist in charge. Continue amiodarone for atrial fibrillation. Patient updated on the plan and in agreement. All questions answered to satisfaction. Please see residents note for additional details and management. Dr. Arthur MD
[2025-05-10] MEDS: ATORVASTATIN CALCIUM 20 MG TABLET 40 MG PO (20:49)
[2025-05-10] MEDS: GABAPENTIN 100 MG CAPSULE PO (21:02)
[2025-05-11] VITALS (10 sets, daily range): BP systolic 119–144; BP diastolic 78–99; PULSE 58–83; RESP 11–99; TEMP 36.1–36.4; O2SAT 97–98; BMI 41.6
[2025-05-11] MEDS: GABAPENTIN 100 MG CAPSULE PO ×3 (05:28→21:29)
[2025-05-11 06:12] LABS: Basophils # (Auto) 0.0 Thou/mm3 (0.0-0.2); Basophils % (Auto) 0 % (0-2.5); Eosinophils # (Auto) 0.1 Thou/mm3 (0.0-0.5); Eosinophils % (Auto) 1 % (0-10); Hematocrit 48.0 % (41.0-53.0); Hemoglobin 16.4 g/dL (13.5-16.0); Immature Granulocytes Auto 0.01 Thou/mm3 (0.00-0.00); Lymphocytes # (Auto) 2.1 Thou/mm3 (1.0-4.8); Lymphocytes % (Auto) 27 % (10-50); Mean Corpuscular HGB Conc 34.2 g/dl (31.0-37.0); Mean Corpuscular Hemoglobin 30.1 pg (25.0-35.0); Mean Corpuscular Volume 88 fL (80-100); Monocytes # (Auto) 1.1 Thou/mm3 (0.0-0.8); Monocytes % (Auto) 14 % (0-12); Neutrophils # (Auto) 4.6 Thou/mm3 (1.8-7.7); Neutrophils % (Auto) 58 % (37-80); Nucleated Red Blood Cell # 0.00 Thou/mm3 (0.00-0.00); Nucleated Red Blood Cell % 0 /100 WBC (0); Platelet Count 227 Thou/mm3 (140-440); RDW Standard Deviation 44.9 fL (35.1-43.9); Red Blood Count 5.45 Miln/mm3 (4.50-5.90); White Blood Count 7.9 Thou/mm3 (3.8-10.6)
[2025-05-11 06:31] LABS: Alanine Aminotransferase 24 U/L (10-49); Albumin, Serum 3.4 gm/dL (3.5-5.0); Albumin/Globulin Ratio 1.9 (1.2-2.2); Alkaline Phosphatase 153 U/L (46-116); Anion Gap 7 (7-16); Aspartate Amino Transferase 20 U/L (0-34); BUN/Creatinine Ratio 19 Ratio (12-20); Bilirubin,Total 0.5 mg/dL (0.3-1.2); Blood Urea Nitrogen 17 mg/dL (9-23); Calcium 8.9 mg/dL (8.3-10.6); Calcium (Corrected) 9.4 mg/dL (8.5-10.1); Carbon Dioxide 26.8 mMol/L (20.0-31.0); Chloride 103 mMol/L (98-107); Creatinine (Component) 0.9 mg/dL (0.6-1.3); Estimated Creatinine Clearance 112.4 mL/min (>60); Globulin 1.8 gm/dL (2.3-3.5); Glucose 91 mg/dL (74-106); Magnesium 1.9 mg/dL (1.6-2.6); Osmolality,Calculated 275 (275-295); Phosphorous 3.7 mg/dL (2.4-5.1); Potassium 3.4 mMol/L (3.4-5.1); Sodium 137 mMol/L (136-145); Total Protein 5.2 gm/dL (5.7-8.2); eGFR > 60 See Note
[2025-05-11] MEDS: FINASTERIDE 5 MG TABLET PO (08:46)
[2025-05-11] MEDS: AMIODARONE HCL 200 MG TABLET PO (08:46)
[2025-05-11] MEDS: RIVAROXABAN 10 MG TABLET 20 MG PO (08:46)
[2025-05-11] MEDS: DULoxetine HCL 30 MG CAPSULE PO (08:46)
--- NOTE | 2025-05-11 10:25 | ECHO_ITS ---
Transthoracic Echo Report Ht (in): 65 Wt (lb): 232 Exam Location: Echo Lab Status: Inpatient Cover Creaser: Meghan Marte Indications: Procedure Performed: BP: 128 / 76 HR: 68 Technical Quality: Technically Diffiucult Due To Body Habitus MEASUREMENTS (Male / Female) Normal Values 2D ECHO LV Diastolic Diameter PLAX 2.9 cm 4.2 - 5.9 / 3.9 - 5.3 cm LV Systolic Diameter PLAX 2.0 cm IVS Diastolic Thickness 1.5 cm 0.6 - 1.0 / 0.6 - 0.9 cm LVPW Diastolic Thickness 1.9 cm 0.6 - 1.0 / 0.6 - 0.9 cm LV Relative Wall Thickness 1.2 LVOT Diameter 2.0 cm LA Volume Index 42.4 cm?/m? 16 - 28 cm?/m? DOPPLER AV Peak Velocity 130.0 cm/s AV Peak Gradient 6.8 mmHg LVOT Peak Velocity 119.0 cm/s LVOT Peak Gradient 5.7 mmHg AV Area Cont Eq pk 2.9 cm? MV Area PHT 2.9 cm? Mitral E Point Velocity 49.5 cm/s Mitral A Point Velocity 69.8 cm/s Mitral E to A Ratio 0.7 LV E' Lateral Velocity 7.3 cm/s Mitral E to LV E' Lateral Ratio 6.8 LV E' Septal Velocity 6.1 cm/s Mitral E to LV E' Septal Ratio 8.1 PV Peak Velocity 125.0 cm/s PV Peak Gradient 6.3 mmHg FINDINGS Left Ventricle Normal left ventricular size and systolic function with no obvious regional wall motion abnormalities. Moderate left ventricular hypertrophy. Normal left ventricular diastolic filling pattern for age. The ejection fraction is visually estimated at 60 %. Right Ventricle The right ventricle is normal in size and systolic function. The estimated right ventricular systolic pressure can not be determined due to innadequate tricuspid signal. Left Atrium The left atrium is normal by two-dimensional, color flow and Doppler imaging with no structural abnormalities, no thrombus formation present. Right Atrium The right atrium is normal by two-dimensional imaging, color flow and Doppler imaging with no structural abnormalities, no thrombus formation present. Atrial Septum The interatrial septum appears normal with no evidence of a shunt. Aorta The aorta is normal by two-dimensional, color flow and Doppler interrogation. Mitral Valve The mitral valve is normal by two-dimensional, color flow and Doppler interrogation. There is no significant mitral valve regurgitation, stenosis or prolapse. Aortic Valve The aortic valve is trileaflet and normal by two-dimensional, color flow and Doppler interrogation. There is no significant aortic valve regurgitation. Tricuspid Valve The tricuspid valve is normal by two-dimensional, color flow and Doppler interrogation. There is no significant tricuspid valve regurgitation. Pulmonic Valve The pulmonic valve is not well visualized. There is no significant pulmonic valve regurgitation. Vessels The pulmonary artery appears normal. The inferior vena cava pulmonary and hepatic veins appear normal. Pericardium The pericardium is normal by two-dimensional imaging. There is no significant pericardial effusion. CONCLUSIONS Indications: Syncope LV size and function with EF 55-60%. Diastolic Dysfunction stage I RV size and function. Normal RVSP 25 mmhg. Trace-Mild MR & MAC. trace TR. Mild LA dilataion. No Pericardial Effusion. Christian Ruiz (Electronically Signed) Final Date: 11 May 2025 17:53
--- NOTE | 2025-05-11 15:17 | PC.SS ---
SS follow up note; Patient is pending an echo. Patient will discharge back home when medically cleared.
--- NOTE | 2025-05-11 15:54 | PC.PT ---
PT eval only. Patient is I with transfers and ambulation with SPC.
--- NOTE | 2025-05-11 16:08 | PD.RESPRO ---
Documentation for date of: 05/11/25 Subjective Subjective Interval history: No acute overnight events. Seen and examined at bedside with physical therapy present who is recommending home health upon discharge. Patient overall doesn't have any complaints. Vital signs are stable, CBC and chem panel unremarkable. At this time, patient is only pending echo prior to discharge for further evaluation of syncope given his cardiac history though suspicion for dehydration/heat exhaustion remains high for etiology of his presentation. Called echo and ultrasound departments but unable to reach non destructive testing technician. Exam Vital Signs Temp Pulse Resp BP Pulse Ox O2 Del Method FiO2 96.9 F 71 14 144/83 H 98 Room Air 05/11/25 12:00 05/11/25 14:30 05/11/25 12:00 05/11/25 14:05/11/25 12:00 05/11/25 12:05/11/25 02:00 Narrative Exam General: AOx3, no acute distress, able to speak full sentences HEENT: NC/AT, mucous membranes moist, bilateral sclera anicteric Cardiovascular: regular rate and rhythm, S1/S2 present, no murmurs appreciated Pulmonary: clear to auscultation bilaterally, no rales/rhonchi/wheezes Abdominal: soft, non-tender, non-distended, no rebound/guarding, normal bowel sounds present Musculoskeletal: normal ROM, trace to 1+ pitting edema Skin: warm and dry, intact, no rashes Neuro: CN II-XII intact, no focal deficits Objective Labs 05/12/25 05:13 05/12/25 05:13 Labs: Laboratory Results - last 24 hr 05/11/25 04:50 WBC 7.9 RBC 5.45 Hgb 16.4 H Hct 48.0 MCV 88 MCH 30.1 MCHC 34.2 RDW Std Deviation 44.9 H Plt Count 227 D Neut % (Auto) 58 Lymph % (Auto) 27 [place] % (Auto) 14 H Eos % (Auto) 1 Baso % (Auto) 0 Neut # (Auto) 4.6 Lymph # (Auto) 2.1 [place] # (Auto) 1.1 H Eos # (Auto) 0.1 Baso # (Auto) 0.0 Immature Gran # (Auto) 0.01 H Absolute Nucleated RBC 0.00 Immature Gran % 0 Nucleated RBC % 0 Sodium 137 Potassium 3.4 Chloride 103 Carbon Dioxide 26.8 Anion Gap 7 BUN 17 Creatinine 0.9 Estim Creat Clear Calc 112.4 eGFR > 60 BUN/Creatinine Ratio 19 Glucose 91 Calculated Osmolality 275 Calcium 8.9 Corrected Calcium 9.4 Phosphorus 3.7 Magnesium 1.9 Total Bilirubin 0.5 AST 20 ALT 24 Alkaline Phosphatase 153 H Total Protein 5.2 L Albumin 3.4 L Globulin 1.8 L Albumin/Globulin Ratio 1.9 Quality Measures Quality Measures VTE prophylaxis (Xarelto 20 mg) Assessment & Plan Assessment Current Active Medications: Generic Name Dose Route Start Last Admin Trade Name Freq PRN Reason Stop Dose Admin Acetaminophen 650 mg 05/09/25 02:20 Acetaminophen 325 Mg Tablet PO 06/08/25 02:19 Q6H PRN Fever >101.5 Acetaminophen 650 mg 05/09/25 02:20 Acetaminophen 325 Mg Tablet PO 06/08/25 02:19 Q6H PRN PAIN SCALE 1-3 (mild Amiodarone HCl 200 mg 05/09/25 09:00 05/11/25 08:46 Amiodarone Hcl 200 Mg Tablet PO 06/08/25 08:59 200 mg QDAY TUAN Administration Atorvastatin Calcium 40 mg 05/09/25 21:00 05/10/25 20:49 Atorvastatin Calcium 20 Mg Tablet PO 06/08/25 20:59 40 mg HS TUAN Administration Dextrose 25 ml 05/09/25 02:37 Dextrose 50%-Water Inj 50 Ml Syringe IV 06/08/25 02:36 Q15MIN PRN BG 50-70 responsive npo pt Dextrose 50 ml 05/09/25 02:37 Dextrose 50%-Water Inj 50 Ml Syringe IV 06/08/25 02:36 Q15MIN PRN BG <50 OR BG <70 & pt unresponsive Duloxetine HCl 30 mg 05/09/25 09:00 05/11/25 08:46 Duloxetine Hcl 30 Mg Capsule PO 06/08/25 08:59 30 mg QDAY TUAN Administration Finasteride 5 mg 05/09/25 09:00 05/11/25 08:46 Finasteride 5 Mg Tablet PO 06/08/25 08:59 5 mg QDAY TUAN Administration Gabapentin 100 mg 05/10/25 22:00 05/11/25 14:29 Gabapentin 100 Mg Capsule PO 06/09/25 21:59 100 mg TID TUAN Administration Glucagon 1 mg 05/09/25 02:37 Glucagon Inj 1 Mg Vial IM Q15MIN PRN BG <70, and no IV access Insulin Human Lispro 0 unit 05/09/25 07:30 05/11/25 12:00 Insulin Lispro (Admelog) 1 Unit/0.01 Ml Unit SC 06/08/25 07:29 Not Given AC TUAN Protocol Lisinopril 20 mg 05/11/25 09:30 05/11/25 14:30 Lisinopril 20 Mg Tablet PO 06/10/25 09:29 20 mg BID TUAN Administration Ondansetron HCl 4 mg 05/09/25 02:20 Ondansetron Inj 2 Mg/Ml Inj 2 Ml IVP 06/08/25 02:19 Q6H PRN NAUSEA OR VOMITING Protocol Oxycodone/Acetaminophen 1 tab 05/09/25 02:28 Oxycodone/Apap 5/325 Tablet PO 05/14/25 02:27 Q6H PRN PAIN SCALE 4-6 (Moderate Rivaroxaban 20 mg 05/09/25 09:00 05/11/25 08:46 Rivaroxaban 10 Mg Tablet PO 05/30/25 08:59 20 mg QDAY TUAN Administration Ropinirole HCl 0.25 mg 05/09/25 21:00 05/10/25 20:49 Ropinirole Hcl 0.25 Mg Tablet PO 06/08/25 20:59 0.25 mg HS TUAN Administration Sennosides 1 tab 05/09/25 02:20 Senna Tablet PO 06/08/25 02:19 QDAY PRN constipation Protocol Sodium Chloride 3 ml 05/09/25 01:23 Sodium Chloride Rt Tiana 0.9% 3 Ml Nebu INH 06/08/25 01:22 PRN PRN SOLN Plan Misbah Mcnulty is a 50-year-old male with past medical history of hypertension, type 2 diabetes mellitus, HFpEF (EF 55-60%), CAD, DVT and PE status post IVC filter, factor V Leiden mutation, AYLEEN, and BPH who is admitted for syncope and hyperkalemia. #Syncope likely polypharmacy versus dehydration One episode of passing out with associated shakiness witnessed by roommate. Remained denied any obvious trauma and patient himself cannot recall falling. EKG showed NSR with QTc of 412. He was noted to have multiple medications including gabapentin, duloxetine, ropinirole, loratadine, baclofen, and meclizine. In ED patient received 1 L NS of fluid and hyperkalemia cocktail. Troponin peaked and CK within normal limits. ? Orthostatic vitals negative, continue to hold metoprolol, gabapentin, and loratadine ? Follow-up echo to rule out cardiac cause of syncope #Hyperkalemia, resolved Likely due to medication versus PRIMO. K 6.0 that resolved after treatment. EKG showed sinus rhythm with QTc 412. Received regular insulin 5 units IV x 1, breathing treatments, calcium gluconate 1 g x 1, Kayexalate 30 mg p.o. x 1 ? Continue monitor electrolytes #PRIMO likely prerenal secondary to diuretics versus dehydration, resolved Found to have PRIMO with elevated BUN 28 and creatinine 1.8. Received 1 L IVF in ED and an additional 1 L afterwards. ? Avoid nephrotoxic agents ? Renally dose medications #Lactic acidosis resolved Likely related to dehydration vs medication like metformin use. ? IV fluid resuscitation given ? Holding metformin #Heart failure with preserved ejection fraction [EF 55-60%] Echo 01/28/2025: LV size and function with EF 55-60%. Diastolic Dysfunction stage I. RV size and function. Normal RVSP 25 mmHg. ? Holding antihypertensive as blood pressure is stable ? Holding Lasix ? Strict Intake and output ? Keep K >4, Mg >2 #History of thromboembolic disease/PE on anticoagulation History of DVT and pulmonary embolism, status post IVC filter, history of factor V Leiden takes Xarelto at home ? Continue Xarelto 20 mg once daily #Type 2 diabetes mellitus with neuropathy Takes metformin 500 mg once daily at home. ? Continue ropinirole 0.25 mg p.o. at bedtime ? SSI with Accu-Cheks ? Hypoglycemia protocol in place #Atrial fibrillation #Hypertension #Coronary artery disease #Hyperlipidemia ? Continue amiodarone 200 mg daily ? Holding metoprolol tartrate 100 mg twice daily ? Holding lisinopril 20 mg daily ? Continue atorvastatin 40 mg at bedtime #BPH On tamsulosin 0.4 mg daily and finasteride ? Continue finasteride #AYLEEN Uses CPAP machine at night ? Continue CPAP at night #Diabetic neuropathy ? Restart gabapentin on low-dose 100 3 times daily #Elevated troponins likely supply/demand ischemia ? Trop peaked Health maintenance: Disposition: Patient is admitted for further workup and management of syncope, pending echo Diet: Cardiac GI prophylaxis: Protonix 40 mg IV daily DVT prophylaxis: Xarelto 20 mg once a day CODE STATUS: Full code ----- Plan discussed with attending physician Dr. Arthur Gasca MD PGY-1 Internal Medicine Attending Provider Attestation/Addendum I have examined the patient, reviewed labs and imaging findings, discussed the case with the resident(s), and reviewed entered orders. I agree with the plan of care as outlined in this note, with these additional summaries/recommendations: Patient seen at bedside. No acute overnight events. Patient diagnosed with syncope. Unlikely to be cardiac in origin although we are awaiting echocardiogram & physical therapy evaluation before patient can be safely discharged. Most likely vasovagal/reflex syncope secondary to being out in the sun. Echocardiogram pending. Orthostatic vital signs negative. Lactic acidosis resolved. Most likely secondary to metformin versus dehydration. S/P IV fluids. Patient also diagnosed with acute kidney injury secondary to prerenal azotemia which has no resolved. Continue to avoid nephrotoxic agents. HFpEF stable and not in acute exacerbation at this time. Patient endorses a history of pulmonary embolism, continue home Xarelto. Insulin sliding scale for diabetes mellitus type 2 with Accu-Cheks. Target blood sugar of 140-180 while hospitalized. Continue home antihypertensives. Continue CPAP at night for history of obstructive sleep apnea. Patient was also noted to have elevated troponins on admission which are always chronically elevated per chart review. No further work-up needed at this time and patient advised to follow-up with outpatient stenographic court reporter. Continue amiodarone for atrial fibrillation. Patient updated on the plan and in agreement. All questions answered to satisfaction. Please see residents note for additional details and management. Dr. Arthur MD
[2025-05-11] MEDS: ATORVASTATIN CALCIUM 20 MG TABLET 40 MG PO (20:27)
[2025-05-12] VITALS: BP 111/77; PULSE 65; RESP 12; TEMP 36.1; O2SAT 98
[2025-05-12 04:00] VITALS: BP 118/83; PULSE 59; PULSE 66; RESP 12; TEMP 36.1; O2SAT 97
[2025-05-12] MEDS: GABAPENTIN 100 MG CAPSULE PO (05:45)
[2025-05-12 06:05] LABS: Basophils # (Auto) 0.0 Thou/mm3 (0.0-0.2); Basophils % (Auto) 0 % (0-2.5); Eosinophils # (Auto) 0.2 Thou/mm3 (0.0-0.5); Eosinophils % (Auto) 3 % (0-10); Hematocrit 48.7 % (41.0-53.0); Hemoglobin 16.3 g/dL (13.5-16.0); Immature Granulocytes Auto 0.02 Thou/mm3 (0.00-0.00); Lymphocytes # (Auto) 2.1 Thou/mm3 (1.0-4.8); Lymphocytes % (Auto) 32 % (10-50); Mean Corpuscular HGB Conc 33.5 g/dl (31.0-37.0); Mean Corpuscular Hemoglobin 29.7 pg (25.0-35.0); Mean Corpuscular Volume 89 fL (80-100); Monocytes # (Auto) 0.9 Thou/mm3 (0.0-0.8); Monocytes % (Auto) 13 % (0-12); Neutrophils # (Auto) 3.4 Thou/mm3 (1.8-7.7); Neutrophils % (Auto) 52 % (37-80); Nucleated Red Blood Cell # 0.00 Thou/mm3 (0.00-0.00); Nucleated Red Blood Cell % 0 /100 WBC (0); Platelet Count 224 Thou/mm3 (140-440); RDW Standard Deviation 44.8 fL (35.1-43.9); Red Blood Count 5.48 Miln/mm3 (4.50-5.90); White Blood Count 6.6 Thou/mm3 (3.8-10.6)
[2025-05-12 06:42] LABS: Alanine Aminotransferase 25 U/L (10-49); Albumin, Serum 3.3 gm/dL (3.5-5.0); Albumin/Globulin Ratio 1.5 (1.2-2.2); Alkaline Phosphatase 165 U/L (46-116); Anion Gap 6 (7-16); Aspartate Amino Transferase 18 U/L (0-34); BUN/Creatinine Ratio 14 Ratio (12-20); Bilirubin,Total 0.5 mg/dL (0.3-1.2); Blood Urea Nitrogen 14 mg/dL (9-23); Calcium 8.3 mg/dL (8.3-10.6); Calcium (Corrected) 8.9 mg/dL (8.5-10.1); Carbon Dioxide 27.8 mMol/L (20.0-31.0); Chloride 105 mMol/L (98-107); Creatinine (Component) 1.0 mg/dL (0.6-1.3); Estimated Creatinine Clearance 100.6 mL/min (>60); Globulin 2.2 gm/dL (2.3-3.5); Glucose 91 mg/dL (74-106); Magnesium 2.0 mg/dL (1.6-2.6); Osmolality,Calculated 278 (275-295); Phosphorous 3.6 mg/dL (2.4-5.1); Potassium 3.8 mMol/L (3.4-5.1); Sodium 139 mMol/L (136-145); Total Protein 5.5 gm/dL (5.7-8.2); eGFR > 60 See Note
[2025-05-12 07:00] VITALS: RESP 98
[2025-05-12 08:00] VITALS: BP 111/85; PULSE 61; PULSE 62; RESP 16; TEMP 36.4; O2SAT 97
[2025-05-12] MEDS: DULoxetine HCL 30 MG CAPSULE PO (08:16)
[2025-05-12 08:17] VITALS: BP 111/85; PULSE 62; PULSE 69
[2025-05-12] MEDS: RIVAROXABAN 10 MG TABLET 20 MG PO (08:17)
[2025-05-12] MEDS: AMIODARONE HCL 200 MG TABLET PO (08:17)
[2025-05-12] MEDS: FINASTERIDE 5 MG TABLET PO (08:18)
[2025-05-12 10:18] VITALS: BMI 41.3
[2025-05-12 12:00] VITALS: BP 135/83; PULSE 65; PULSE 75; RESP 17; TEMP 36.9; O2SAT 96
--- NOTE | 2025-05-12 15:44 | ESDS_ITS ---
<Statement entered by Zhen Cooper MD - 05/14/25 13:56> I have discussed and was present for the essential components of the history, physical examination, diagnosis, and treatment plan with the resident. I agree with the patient's care as documented by the resident and amended herein by me. Zhen Cooper MD FACP. Planned Discharge Date 05/12/25 DS: Providers Provider Date of admission: 05/09/25 02:20 Primary care physician: Akila Diaz PA-C Admitting Provider: Tristen Yoon MD Attending Provider on Admission: Tristen Yoon MD Consults: 05/09/25 10:26 Referral Physical Therapy Routine Comment: Physician Instructions: Attending Provider on DC: Dr. Zhen Cooper Discharging Provider: RESIDENT Baldemar DS: Diagnosis Discharge Diagnosis (1) AYLEEN on CPAP: Status: Acute Problem List Completed Was Problem List Reviewed/Reconciled?: Yes Hospital Course Hospital Course Hospital course: Mr. Mcnulty with significant cardiovascular history was admitted to the hospital for syncope workup and treatment of hyperkalemia, now resolved. Pt presented to the ED after witnesses syncopal episode without headstrike. pt underwent syncopal workup with orthostatic vitals, ekg, echo, all unremarkable. There was concern for polypharmacy, given the number of antihypertensive medications that the patient reported taking. While inpatient, we held majority of his home antiHTN medications (only continued lisinopril 20 PO BID). His blood pressures while inpatient were 110-90s. It is likely that the patient was also dehydrated. Pt discharged to home with home health. Discharge plan as follows: ? Your gabapentin was decreased to 100 mg three times daily ? Continue home medications as prescribed ? Follow-up with PCP within 1-2 weeks of discharge ? Return to ED if symptoms worsen or recur Case discussed with my attending Dr. Kenneth Gloria MD PGY-1 Patient seen and examined at bedside, no acute overnight events. I discussed and supervised with the internet merchant physician who took care of this barbie ent. I personally saw and examined the patient. I agree with most of the assessment and plan. Plan of care discussed with attending Dr. Cooper. Juanjo Jc MD PGY-2 Status at Discharge Cognitive/behavioral status at discharge: at baseline Functional status at discharge: uses cane/walker Time Spent with Patient Time attestation: Total time spent providing and/or coordinating discharge services: Time spent: Greater than 30 minutes Home Health Home Health Referral Orders: 05/12/25 11:03 Home Health Referral Routine Reason For Exam: Dizziness Home-Bound The patient must either because of illness or injury, need the aid of supportive devices such as crutches, canes, wheelchairs, and walkers; the use of special transportation; or the assistance of another person in order to leave their place of residence; OR have a condition such that leaving his or her home is medically contraindicated. In addition, the patient also meets the following criteria: patient is normally unable to leave the home and leaving home requires considerable taxing effort. Addendum to Home Health Certification Practitioner's Certification: I certify that the patient has been under my care in the hospital and the care of attending physician (see below). We had a [id number] encounter on (see date below). My clinical findings indicate that the patient is home bound per the above criteria and the Home Health Services noted in these orders are medically necessary. The primary reason for the [id number] encounter is related to the fact that the patient requires home health services. Date Certifying [id number] Physician Encounter: 05/12/25 Physician's Name who will Assume Oversight for Services: Akila Diaz Physician's Phone No.who will Assume Oversight for Service: CIVIL ENGINEER [employer] - Community Resources: No PT to Evaluate: Yes PT to evaluate and provide a treatmnet plan to increase patient's mobility and strength. Wound Care: No IV Therapy: No RN Safety Evaluation: Yes RN to evaluate and create a plan of care that will produce positive outcomes. Palliative Treatment: No Palliative treatment and evaluate the need for hospice. Home Health Aide - Personal Care: Yes Home Health Aide to assist with any ADL's. Exam Vital Signs Temp Pulse Resp BP Pulse Ox O2 Del Method FiO2 98.5 F 65 17 135/83 H 96 Room Air 05/12/25 12:05/12/25 12:00 05/12/25 12:00 05/12/25 12:00 05/12/25 12:00 05/12/25 12:00 05/11/25 02:00 Narrative Exam GENERAL: no acute distress, AAO x3, comfortably laying in bed HEENT: Head AT/ NC. CARDIOVASCULAR: RRR. Normal S1/S2, trace edema of bilateral LEs. RESPIRATORY: CTAB, nl WOB GASTROINTESTINAL: Abdomen soft, non tender no palpable masses. Bowel sounds present MUSCULOSKELETAL:? No cyanosis or edema, no visible joint swelling. NEUROLOGICAL: CN II-XII grossly intact. No focal deficits. PSYCHIATRIC: Awake and alert, not agitated, normal mood and affect. SKIN: No obvious rashes, no jaundice Discharge Plan Plan Patient Disposition: Home w/HOME HEALTH Patient condition on transfer: Stable Care Plan Goals: ? Your gabapentin was decreased to 100 mg three times daily ? Continue home medications as prescribed ? Follow-up with PCP within 1-2 weeks of discharge ? Return to ED if symptoms worsen or recur Prescriptions/Referrals Prescriptions/Med Rec: New gabapentin 100 mg Capsule 100 mg PO TID 30 Days Qty: 90 0RF Continued lisinopril 20 MG tablet 20 mg PO BID Qty: 0 Patient Comments: PER ROOMATE ALEXANDRA, ONLY TAKES IF SBP >125 metformin 500 mg tablet 500 mg PO HS Patient Comments: TAKE 1 TABLET BY MOUTH EVERY DAY AT BEDTIME FOR DIABETES ropinirole 0.25 mg Tablet 0.25 mg PO HS Patient Comments: 1-3 HRS PRIOR TO BEDTIME amiodarone 200 mg Tablet 200 mg PO QDAY atorvastatin 40 mg tablet 40 mg PO HS Patient Comments: TAKE 1 TABLET BY MOUTH AT BEDTIME FOR CHOLESTEROL meclizine 25 mg tablet 25 mg PO BID PRN (Reason: Dizziness) Patient Comments: TAKE 1-2 TABLETS BY MOUTH TWICE A DAY NEEDED FOR DIZZINESS tamsulosin [Flomax] 0.4 mg capsule 0.4 mg PO QDAY Qty: 7 0RF diclofenac sodium 75 mg tablet,delayed release (DR/EC) 75 mg PO BID 5 Days Qty: 10 0RF Ozempic 1 mg/dose (4 mg/3 mL) pen injector 1.75 mg SUBCUT QWEEK Patient Comments: Rx Instructions: 1 time weekly duloxetine 30 mg capsule,delayed release(DR/EC) 30 mg PO QDAY finasteride 5 mg tablet 5 mg PO QDAY Patient Comments: TAKE 1 TABLET BY MOUTH EVERY DAY allopurinol 100 mg tablet 200 mg PO DAILY Patient Comments: TAKE 2 TABS BY MOUTH 1 TIME A DAY FOR GOUT multivitamin [Daily Multi-Vitamin] Tablet 1 tab PO QAM loratadine [Claritin] 10 mg tablet 10 mg PO QDAY PRN (Reason: allergic symptoms) ondansetron HCl 4 mg tablet 4 mg PO TID PRN (Reason: nausea and vomiting) Xarelto 20 mg tablet 20 mg PO QDAY Qty: 30 3RF Rx Instructions: must administer with evening meal Held acetaminophen-codeine 300-30 mg tablet 1 tab PO BID PRN (Reason: pain) Qty: 14 0RF Hold Instructions: Hold until you follow-up with your PCP Discontinued gabapentin 300 mg capsule 300 mg PO TID metoprolol tartrate 100 mg tablet 100 mg PO BID Patient Comments: TAKE 1 TABLET BY MOUTH TWICE A DAY FOR BLOOD PRESSURE ondansetron 4 mg tablet,disintegrating 4 mg PO Q8H PRN (Reason: nausea and vomiting) Qty: 10 0RF dexamethasone 6 mg tablet 6 mg PO QDAY 4 Days Qty: 4 0RF baclofen 20 mg tablet 20 mg PO BID Qty: 10 0RF benzonatate 100 mg capsule 200 mg PO TID PRN (Reason: cough) albuterol sulfate 90 mcg/actuation HFA aerosol inhaler 2 puff INHALATION Q4H PRN (Reason: shortness of breath or wheezing) Patient Comments: TAKE 1-2 PUFFS BY MOUTH EVERY 4 HOURS INHALATION NEEDED hydrocortisone 0.5 % cream 1 applic topical TID PRN (Reason: skin irritation) Qty: 28.4 0RF Referrals: Akila Diaz PA-C [Primary Care Provider] - Patient/Caregiver Discharge Instructions Education Materials: ED Hyperkalemia, ED Near-Fainting, Uncertain Cause Print Language: Swedish Stand Alone Forms: [employer] Info., Patient Portal Info Letter Discharge Order Discharge Orders: Discharge (Routine); Ordered 05/12/25 Ordered By: Mj Cameron Quality Discharge Quality Measures none
--- NOTE | 2025-05-14 10:02 | PC.CC ---
Addendum entered by Kandis Erickson RN 05/14/25 12:19: SOC is 05/18 Addendum entered by Kandis Erickson RN 05/14/25 10:35: Patient is booked with [facility], pending SOC Original Note: Referral sent to all agencies, no preference documented
== END 2025-05-12 12:23 | disposition home health service (06) | DRG 422 ==
LOC: SERX 05-09 00:21 → SERHOLD 05-09 02:59 → S2SX 05-09 07:50 → S2NX 05-09 21:43
PROVIDERS: Student in an Organized Health Care Education/Training Program; Admitting Provider Internal Medicine; Emergency Provider Emergency Medicine; PCP Physician Assistant; Visit Provider Internal Medicine
DX: E87.5 Hyperkalemia (principal); I11.0 Hypertensive heart disease with heart failure; E11.40 Type 2 diabetes mellitus with diabetic neuropathy, unspecified; Z95.828 Presence of other vascular implants and grafts; D68.51 Activated protein C resistance; E87.20 Acidosis, unspecified; E86.0 Dehydration; I24.89 Other forms of acute ischemic heart disease; I50.32 Chronic diastolic (congestive) heart failure; Z86.711 Personal history of pulmonary embolism; I25.10 Atherosclerotic heart disease of native coronary artery without angina pectoris; G47.33 Obstructive sleep apnea (adult) (pediatric); N40.0 Benign prostatic hyperplasia without lower urinary tract symptoms; D72.829 Elevated white blood cell count, unspecified; N17.9 Acute kidney failure, unspecified; E11.65 Type 2 diabetes mellitus with hyperglycemia; R55 Syncope and collapse; D75.839 Thrombocytosis, unspecified; Z79.84 Long term (current) use of oral hypoglycemic drugs; E78.5 Hyperlipidemia, unspecified; I25.2 Old myocardial infarction; J45.909 Unspecified asthma, uncomplicated; I48.91 Unspecified atrial fibrillation; Z79.01 Long term (current) use of anticoagulants; Z79.4 Long term (current) use of insulin; Z79.899 Other long term (current) drug therapy; Z86.718 Personal history of other venous thrombosis and embolism; Z87.442 Personal history of urinary calculi; Z99.81 Dependence on supplemental oxygen; Z79.85 Long-term (current) use of injectable non-insulin antidiabetic drugs
CPT/HCPCS: 36415; 70450; 71045; 80053; 81001; 82550; 83605; 83690; 83735; 83880; 84100; 84484; 85025; 85610; 85730; 87811; 93005; 93306; 94644; 94660; 96361; 96374; 97161; 99285; J0612; J1815; J7030; J7120; A9270

== ENCOUNTER 2025-05-25 20:20 | Emergency (ER) | payer MEDICAID, SELFPAY ==
[2025-05-25 20:45] VITALS: PULSE 70; RESP 18; O2SAT 98; BMI 39.4
[2025-05-25 21:31] VITALS: BP 139/87; PULSE 83; RESP 18; TEMP 36.9; O2SAT 95
--- NOTE | 2025-05-25 21:51 | PD.EDANX ---
ED Anxiety RME/HPI General Chief Complaint: Anxiety Stated Complaint: DISTRESSED Time Seen by Provider: 05/25/25 21:23 Source: patient Arrival date/time: This is a case of 50-year-old male with with history of anxiety came in in the emergency room feeling anxious because of the procedure colonoscopy tomorrow patient wanted to reschedule the procedure and states that he is feeling anxious and cannot sleep patient denies any suicidal homicidal ideation denies any hallucination denies any depression patient denies any chest pain palpitation or shortness of breath no symptoms at this time except anxiety Limitations: no limitations Related Data Home Medications ?Medication ?Instructions ?Recorded ?Confirmed lisinopril 20 mg tablet 20 mg PO BID #0 tabs 08/22/17 05/09/25 metformin 500 mg tablet 500 mg PO HS 06/28/21 05/09/25 ropinirole 0.25 mg tablet 0.25 mg PO HS 10/03/21 05/09/25 amiodarone 200 mg tablet 200 mg PO QDAY 04/05/22 05/09/25 atorvastatin 40 mg tablet 40 mg PO HS 09/04/22 05/09/25 meclizine 25 mg tablet 25 mg PO BID PRN Dizziness 09/04/22 05/09/25 duloxetine 30 mg capsule,delayed 30 mg PO QDAY 10/24/23 05/09/25 release finasteride 5 mg tablet 5 mg PO QDAY 10/24/23 05/09/25 semaglutide 1 mg/dose (4 mg/3 mL) 1.75 mg subcut QWEEK 10/24/23 05/09/25 subcutaneous pen injector (Ozempic) allopurinol 100 mg tablet 200 mg PO DAILY 01/07/25 05/09/25 loratadine 10 mg tablet (Claritin) 10 mg PO QDAY PRN allergic symptoms 01/07/25 05/09/25 multivitamin (Daily Multi-Vitamin 1 tab PO QAM 01/07/25 05/09/25 tablet) ondansetron HCl 4 mg tablet 4 mg PO TID PRN nausea and vomiting 01/07/25 05/09/25 Previous Rx's ?Medication ?Instructions ?Recorded tamsulosin 0.4 mg capsule (Flomax) 0.4 mg PO QDAY #7 caps 08/23/24 rivaroxaban 20 mg tablet (Xarelto) 20 mg PO QDAY #30 tabs 01/28/25 acetaminophen 300 mg-codeine 30 mg 1 tab PO BID PRN pain #14 tabs 04/25/25 tablet Held on 05/11/25. Instructions: Hold until you follow-up with your PCP gabapentin 100 mg capsule 100 mg PO TID 30 days #90 caps 05/11/25 Allergies Allergy/AdvReac Type Severity Reaction Status Date / Time No Known Allergies Allergy Verified 05/25/25 20:44 Review of Systems Review of Systems Systems Reviewed: All systems reviewed, normal except as documented Constitutional Constitutional: Reports system reviewed and no additional complaints, except as documented, Reports as per HPI, Denies chills and Denies fever(s) Cardiovascular Cardiovascular: Reports system reviewed and no additional complaints, except as documented, Reports as per HPI, Denies chest pain, Denies dyspnea and Denies dyspnea on exertion Respiratory Respiratory: Reports system reviewed and no additional complaints, except as documented, Denies dyspnea and Denies dyspnea on exertion Gastrointestinal Gastrointestinal: Reports system reviewed and no additional complaints, except as documented, Reports as per HPI and Denies abdominal pain Genitourinary Genitourinary: Denies change in libido Musculoskeletal Musculoskeletal: Reports system reviewed and no additional complaints, except as documented and Reports as per HPI Integumentary/Breasts Skin/Breast: Reports system reviewed and no additional complaints, except as documented and Reports as per HPI Neurologic Neurologic: Reports system reviewed and no additional complaints, except as documented, Reports as per HPI, Denies behavioral changes, Denies confusion and Denies memory loss Psychiatric Psychiatric: Reports system reviewed and no additional complaints, except as documented, Reports as per HPI, Denies abnormal sleep pattern, Denies anhedonia, Reports anxiety, Denies auditory hallucinations, Denies behavioral changes, Denies change in appetite, Denies change in libido, Denies confusion, Denies depression, Denies difficulty concentrating, Denies hallucinations, Denies homicidal ideation, Denies hopelessness, Denies irritability, Denies memory loss, Denies mood swings, Reports panic attacks, Denies paranoia, Denies suicidal ideation, Denies tactile hallucinations and Denies visual hallucinations Endocrine Endocrine: Denies change in libido Past Medical History Past Medical History NEUROLOGIC: Negative Neurological Disorders (Episodes of syncope) CARDIAC: Positive Cardiac Disorders, Myocardial Infarction, Angina, Coronary Artery Disease, Atherosclerotic Heart Disease, Hypercholesterolemia, Congestive Heart Failure, Edema, Deep Vein Thrombosis and Hypertension RESPIRATORY: Positive Asthma, Pneumonia, Pulmonary Embolism and Sleep Apnea; Negative Chronic Obstructive Pulmonary Disease (COPD) GASTROINTESTINAL: Positive Gastrointestinal Disorders, Gastroesophageal Reflux Disease and Obesity GENITOURINARY: Positive Genitourinary Disorders, Kidney Stones and Benign Prostatic Hyperplasia; Negative Renal Disease MUSCULOSKELETAL: Positive Musculoskeletal Disorders and Gout ENDOCRINE: Positive Endocrine Disorders and Diabetes Mellitus Type 2; Negative Diabetes Mellitus Type 1 HEMATOLOGIC: Positive Blood Disorders and Clotting Problems (Factor V mutation); Negative Anemia or Sickle Cell Disease PSYCHO/SOCIAL: Positive Anxiety OTHER HISTORY: Positive Developmental Delay and Falls; Negative Autoimmune Disease, Blood Transfusions, Anesthesia Reactions or Cancer Family History FAMILY HISTORY: Positive Family Cardiac Disorders, Family Cancer and Family Surgery; Negative Family Neurologic Problems, Family Psychiatric Problems, Family Respiratory Disorders, Family Gastrointestinal Problems or Family Anesthesia Reaction Surgical History SURGICAL: Positive Vascular Surgery and Angiogram; Negative Coronary Stent Social History SMOKING STATUS: Never smoker SECOND HAND EXPOSURE: No SUBSTANCE USE: does not use 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 ED Exam General Limitations: Present no limitations General appearance: Present alert, in no apparent distress and other (Patient is awake alert oriented not in distress nontoxic looking with good eye contact well-hydrated well-nourished well-groomed) Head Head exam: Present atraumatic Eye Eye exam: Present normal appearance, PERRL and EOMI ENT ENT exam: Present normal exam, normal oropharynx and mucous membranes moist Neck Neck exam: Present normal inspection, full ROM and trachea midline Chest Chest inspection: Present normal inspection and symmetric chest wall rise Respiratory Respiratory exam: Present normal lung sounds bilaterally; Absent respiratory distress, wheezes, stridor, accessory muscle use or prolonged expiratory phase Cardiovascular Cardiovascular exam: Present regular rate, normal rhythm and normal heart sounds; Absent bradycardia, tachycardia, irregular rhythm, systolic murmur or diastolic murmur Abdominal Exam Abdominal exam: Present soft and normal bowel sounds Extremities Exam Extremities exam: Present normal inspection and full ROM Back Exam Back exam: Present normal inspection and full ROM Neurological Exam Neurological exam: Present alert, oriented X3, CN II-XII intact, normal gait and reflexes normal; Absent motor sensory deficit Psychiatric Psychiatric exam: Present normal mood and anxious; Absent depressed, agitated, flat affect, manic, homicidal ideation or suicidal ideation Expanded Psychiatric Exam Expanded psych exam: Absent poor eye contact, pressured speech, echolalia, delusional, paranoid, catatonic, flight of ideas, uncooperative, refuses to answer, auditory hallucinations or visual hallucinations Skin Skin exam: Present warm, dry, intact and normal color Course Quality Measures none Orders Category Date Time Status LORazepam [Ativan] Med 05/25/25 21:51 Once 1 mg PO X1 ONE Vital Signs Vital signs: Vital Signs Temperature 98.4 F 05/25/25 21:31 Pulse Rate 83 05/25/25 21:31 Respiratory Rate 18 05/25/25 21:31 Blood Pressure 139/87 H 05/25/25 21:31 Pulse Oximetry (%) 95 05/25/25 21:31 Oxygen Delivery Method Room Air 05/25/25 21:31 Patient is afebrile not tachycardic not tachypneic BP stable not hypoxic oxygen saturation is 95% in room air Anxiety MDM Narrative MDM Narrative: This is a case of 50-year-old male with with history of anxiety came in in the emergency room feeling anxious because of the procedure colonoscopy tomorrow patient wanted to reschedule the procedure and states that he is feeling anxious and cannot sleep patient denies any suicidal homicidal ideation denies any hallucination denies any depression patient denies any chest pain palpitation or shortness of breath no symptoms at this time except anxiety physical examination patient is awake alert oriented not in distress nontoxic looking vital signs stable BP stable not tachycardic not tachypneic not hypoxic afebrile lungs sound is clear no crackles no rales no retraction no stridor heart normal rate regular rhythm no murmur neurological exam is normal awake alert oriented x 4 no focal deficit GCS 15/15 steady gait patient is anxious not depressed no suicidal no homicidal ideation well-groomed good eye contact at the time of exam there is no need to perform any blood test or any imaging patient is just anxious because of the procedure tomorrow I give Ativan which patient condition markedly improved he was advised if he is not ready to perform the procedure he can call his kettle tender to reschedule the procedure patient understand very well the discharge instruction for any worsening symptoms return precaution was advised Patient was discharged with comfortable condition walking with stable gait. Patient verbalized no further complains explained diagnosis and answered patient question. Patient is comfortable with the proposed management plan including the need to follow up with his/her primary care physician and any specialist if applicable Discussed patient for any urgent condition or worsening sx, He/She needed to go to emergency room immediately or call 911. Patient acknowledge the responsibility to follow up as instructed and to monitor her/his symptoms. For any persistence of the symptoms for more than 3-5 days return precaution advised. Discussed the result of the test and was given printed discharge instruction Patient data External records reviewed:: [facility] previous records Clinical information provided by:: patient Social determinants that could affect healthcare access:: none Patient has the following chronic illnesses:: None How is presenting disease/condition affected by chronic disease/condition?: no chronic disease Evaluation data The following diagnostics were reviewed and interpreted by me:: other (specify) Lab and/or radiology exams considered but not ordered:: None Interpretation Summary: none Medications / Prescriptions Medications or Prescriptions considered but not ordered:: Given Medication administrations:: Given Consultations Consultation(s) initiated? (list below): No Diagnosis Differential diagnosis anxiety: panic disorder and acute anxiety Most likely diagnosis given after review of the tests above:: Anxiety Admission Indicated Admission indicated?: not indicated Explain why admission is indicated or not indicated:: Not indicated Admission Request Was there a request for admission?: No Admission Attestation Admission request attestation: Not indicated Disposition Plan Disposition Plan: Discharge Discharge Attestation Discharge Attestation: The patient and all family members were given an opportunity to ask questions and understood the discharge instructions. Discharge instructions specifically effects, indications for sooner follow up or return to the emergency department, and the expected course of current diagnosis. Patient condition: Stable Discharge Plan Plan Patient Disposition: HOME (Self Care) Patient condition on transfer: Stable Prescriptions/Referrals Prescriptions/Med Rec: No Action lisinopril 20 MG tablet 20 mg PO BID Qty: 0 Patient Comments: PER GHAZALA MORRIS, ONLY TAKES IF SBP >125 metformin 500 mg tablet 500 mg PO HS Patient Comments: TAKE 1 TABLET BY MOUTH EVERY DAY AT BEDTIME FOR DIABETES ropinirole 0.25 mg Tablet 0.25 mg PO HS Patient Comments: 1-3 HRS PRIOR TO BEDTIME amiodarone 200 mg Tablet 200 mg PO QDAY atorvastatin 40 mg tablet 40 mg PO HS Patient Comments: TAKE 1 TABLET BY MOUTH AT BEDTIME FOR CHOLESTEROL meclizine 25 mg tablet 25 mg PO BID PRN (Reason: Dizziness) Patient Comments: TAKE 1-2 TABLETS BY MOUTH TWICE A DAY NEEDED FOR DIZZINESS tamsulosin [Flomax] 0.4 mg capsule 0.4 mg PO QDAY Qty: 7 0RF acetaminophen-codeine 300-30 mg tablet 1 tab PO BID PRN (Reason: pain) Qty: 14 0RF Ozempic 1 mg/dose (4 mg/3 mL) pen injector 1.75 mg SUBCUT QWEEK Patient Comments: [facility]er Rx Instructions: 1 time weekly duloxetine 30 mg capsule,delayed release(DR/EC) 30 mg PO QDAY finasteride 5 mg tablet 5 mg PO QDAY Patient Comments: TAKE 1 TABLET BY MOUTH EVERY DAY allopurinol 100 mg tablet 200 mg PO DAILY Patient Comments: TAKE 2 TABS BY MOUTH 1 TIME A DAY FOR GOUT multivitamin [Daily Multi-Vitamin] Tablet 1 tab PO QAM loratadine [Claritin] 10 mg tablet 10 mg PO QDAY PRN (Reason: allergic symptoms) ondansetron HCl 4 mg tablet 4 mg PO TID PRN (Reason: nausea and vomiting) Xarelto 20 mg tablet 20 mg PO QDAY Qty: 30 3RF Rx Instructions: must administer with evening meal gabapentin 100 mg Capsule 100 mg PO TID 30 Days Qty: 90 0RF Problem List Clinical Impression: Anxiety Patient/Caregiver Discharge Instructions Education Materials: Anxiety Disorders Tx Therapy Additional Instructions: Follow-up with your primary care physician in 2 days for evaluation and to be referred to psychiatry for your anxiety call your kettle tender tomorrow and try to reschedule your colonoscopy for any recurrence persistent worsening symptoms or any emergent concern call 911 or go to the nearest emergency room take your medication for your anxiety as directed by your primary care physician Print Language: Hungarian Stand Alone Forms: [employer] Award Info., Patient Portal Info Letter PA/LOSS CONTROL MANAGER Supervising Physician PA/KARI Supervising Physician: Dr cotton
== END 2025-05-25 22:35 | disposition home or self-care (01) ==
LOC: SERX 22:55
PROVIDERS: Emergency Provider Emergency Medicine
DX: F41.9 Anxiety disorder, unspecified (principal)
CPT/HCPCS: 99282; A9270

== ENCOUNTER 2025-06-22 04:05 | Inpatient (IN) | payer MEDICAID, SELFPAY ==
[2025-06-22] VITALS (16 sets, daily range): BP systolic 106–144; BP diastolic 77–103; PULSE 62–78; RESP 12–92; TEMP 35.7–37.2; O2SAT 95–100; BMI 35.5
--- NOTE | 2025-06-22 | XR_ITS ---
Examinations: MRI Brain without intravenous contrast. MRI brain with intravenous contrast MRA brain with intravenous contrast. MRA brain without intravenous contrast MRA neck with intravenous contrast Date and time of exam: June 22, 2025 1127 hours INDICATIONS: Stroke alert June 22, 2025 0433 hours, onset focal neurologic deficit Technique: Multiple axial and sagittal images of the brain have been obtained Siemens high-resolution 1.5 Macey short bore scanner is utilized. Sagittal sections, T1-weighted, TR 500, TE 14 Axial sections proton density and T2-weighted, TR 3,000, TE 34, TR 3,000, TE 91 Inversion recovery axial images, TR 9,260, TE 111, TI 2,500 Diffusion weighted images, axial sections, TR 4,800, TE 128, B value 1,000 Axial sections, ADC map, TR 4,800, TE 128. Contrast images have been obtained post intravenous 20 cc Gadolinium. T1-weighted axial and coronal images post contrast have been obtained. Angiographic images of neck and brain are obtained pre and post contrast. 3-D post processing performed, including brain, extracranial neck arterial maximum intensity projections Findings: Sellaturcica is not enlarged. The optic chiasm and infundibular stalk are not remarkable. Prepontine and interpeduncular cisterns are not enlarged. No localized enlargement of the medulla or luanne. Fourth ventricle and cerebellar tonsils normal in position. Subacute hemorrhage is not seen. Fourth ventricle is midline. Mass in the cerebellopontine angle region is not evident. 7th and 8th nerve complexes exhibits symmetry. Globes are symmetrical with no retro-orbital mass. Increased white matter signal evident, multiple punctate foci increased signal in the cerebral white matter Diffusion-weighted images demonstrateno focus of restricted diffusion. Mass-effect upon the ventricular system is not identified. Abnormal contrast enhancement is not seen. MRA brain carotid images no carotid stenoses, no large vessel occlusions Impression: Demyelinating disease
--- NOTE | 2025-06-22 | XR_ITS ---
Examination: MR venogram without intravenous contrast Date and time: June 22, 2025 0946 hours INDICATIONS: Diagnosis acute encephalopathy, stroke alert June 22, 2025 0433 hours TECHNIQUE AND FINDINGS: Limited sagittal brain images obtained No 2-D or 3-D reconstructions Sagittal sinus transverse sinuses appear patent IMPRESSION: Extremely limited MR venogram study
--- NOTE | 2025-06-22 04:17 | XR_ITS ---
Examination: AP chest single view Technique one AP portable semiupright chest single view Date and time: June 22, 2025 0443 hours Comparison May 09, 2025 INDICATIONS: Stroke alert today shortness of breath FINDINGS: Poor inspiratory effort chest x-ray Normal heart size Mild to moderate vascular congestion No aspiration pneumonia IMPRESSION: Poor inspiratory effort chest x-ray
--- NOTE | 2025-06-22 04:17 | XR_ITS ---
Examination: CTA carotids with intravenous contrast CTA brain, head with intravenous contrast. 2-D sagittal, coronal reconstructions. 3-D reconstructions. Exam date and time: June 22, 2025 0438 hours INDICATIONS: Stroke alert this morning onset focal neurologic deficit CTDI: vol (mGy) 11.8 DLP: (mGycm) 457 Technique: Multiple CTA axial brain, head carotid images post intravenous contrast injection 75 cc, [id number]. 2-D sagittal, coronal reconstructions. 3-D reconstructions, 3-D post processing including vascular maximum intensity projection images. Low dose protocols were performed. One or more of the following dose reduction techniques were used; automated exposure control, adjustment of the mA and/or KV according to patient size, use of iterative reconstruction technique. Findings: No common carotid carotid bifurcation or internal carotid artery stenoses Dominant left vertebral artery 30% stenosis proximal 15 mm right vertebral artery No cerebral large vessel arterial occlusions thrombus dissection or cerebral aneurysm IMPRESSION: No significant neck arterial stenoses No cerebral large vessel occlusions or thromboses
--- NOTE | 2025-06-22 04:17 | EKG_ITS ---
[facility] Test Date: 2025-06-22 Pat Name: DAVID RAJPUT Department: Room: - Gender: Male Multimedia Specialist: : 1975 Requested By: Vincent Christine Order Number: [id number] Reading MD: Vincent Christine Measurements Intervals [place] Rate: 62 P: 53 SC: 194 QRS: 48 QRSD: 92 T: 2 QT: 408 QTc: 416 Interpretive Statements SINUS RHYTHM POSSIBLE RIGHT VENTRICULAR CONDUCTION DELAY [RSR (QR) IN V1/V2] NONSPECIFIC T-WAVE ABNORMALITY Compared to ECG 05/08/2025 23:48:00 Possible ischemia no longer present T-wave abnormality still present /store/S0/[id number].pdf
--- NOTE | 2025-06-22 04:17 | XR_ITS ---
Examination: CT brain head without contrast. 2-D sagittal coronal reconstructions Date and time of exam:June 22, 2025 0434 hours Comparison May 09, 2024 INDICATIONS: Stroke alert, onset focal neurologic deficit today CTDI: vol (mGy):55.8 DLP: (mGycm):1079 Technique: Multiple CT axial sections of the brain have been obtained, 5 mm slice thickness. Contrast has not been administered. 2-D sagittal, coronal reconstructions have been obtained Low dose protocols were performed. One or more of the following dose reduction techniques were used; automated exposure control, adjustment of the mA and/or KV according to patient size, use of iterative reconstruction technique. Findings: No significant ventricular enlargement. Intra-axial or extra-axial hemorrhage density is not seen. No mass effect or midline shift Basal cisterns are not remarkable. Fourth ventricle is midline. Cranial vault intact. Impression: Negative for acute hemorrhage, mass effect or midline shift
--- NOTE | 2025-06-22 04:18 | PD.EDADULT ---
ED General RME/HPI General Chief complaint: Altered Mental Status Stated complaint: AMS Time Seen by Provider: 06/22/25 04:18 Arrival date/time: 06/22/25 04:05 RME / HPI RME / HPI narrative: 50-year-old male with past medical history of hypertension, DM2, HFpEF (EF 55 to 60%), CAD, DVT, PE s/p IVC filter and on Xarelto, factor Leiden mutation, AYLEEN, COPD, and hypothyroidism comes in brought in by ambulance due to complaints of altered mental status. Per EMS patient's last well-known time was around 6 PM today and patient's mother was the 1 who called EMS. Per EMS report patient around 6 PM was complaining to his mother about nausea and dizziness. And afterwards patient became unresponsive he was not responding to her when she spoke to him or he can like that. On assessment patient was noticed to have a left preferential gaze with some mild left upper extremity drift. Patient was trying to painful stimuli, but was only able to follow any commands and was nonverbal. Normally patient is a GCS of 15 and is very talkative. Related Data Home Medications ?Medication ?Instructions ?Recorded ?Confirmed lisinopril 20 mg tablet 20 mg PO BID #0 tabs 08/22/17 05/09/25 metformin 500 mg tablet 500 mg PO HS 06/28/21 05/09/25 ropinirole 0.25 mg tablet 0.25 mg PO HS 10/03/21 05/09/25 amiodarone 200 mg tablet 200 mg PO QDAY 04/05/22 05/09/25 atorvastatin 40 mg tablet 40 mg PO HS 09/04/22 05/09/25 meclizine 25 mg tablet 25 mg PO BID PRN Dizziness 09/04/22 05/09/25 duloxetine 30 mg capsule,delayed 30 mg PO QDAY 10/24/23 05/09/25 release finasteride 5 mg tablet 5 mg PO QDAY 10/24/23 05/09/25 semaglutide 1 mg/dose (4 mg/3 mL) 1.75 mg subcut QWEEK 10/24/23 05/09/25 subcutaneous pen injector (Ozempic) allopurinol 100 mg tablet 200 mg PO DAILY 01/07/25 05/09/25 loratadine 10 mg tablet (Claritin) 10 mg PO QDAY PRN allergic symptoms 01/07/25 05/09/25 multivitamin (Daily Multi-Vitamin 1 tab PO QAM 01/07/25 05/09/25 tablet) ondansetron HCl 4 mg tablet 4 mg PO TID PRN nausea and vomiting 01/07/25 05/09/25 Previous Rx's ?Medication ?Instructions ?Recorded tamsulosin 0.4 mg capsule (Flomax) 0.4 mg PO QDAY #7 caps 08/23/24 rivaroxaban 20 mg tablet (Xarelto) 20 mg PO QDAY #30 tabs 01/28/25 acetaminophen 300 mg-codeine 30 mg 1 tab PO BID PRN pain #14 tabs 04/25/25 tablet Held on 05/11/25. Instructions: Hold until you follow-up with your PCP Allergies Allergy/AdvReac Type Severity Reaction Status Date / Time No Known Allergies Allergy Verified 05/25/25 20:44 Review of Systems Review of Systems ROS Unobtainable: unobtainable due to mental status Past Medical History Past Medical History NEUROLOGIC: Negative Neurological Disorders (Episodes of syncope) CARDIAC: Positive Cardiac Disorders, Myocardial Infarction, Angina, Coronary Artery Disease, Atherosclerotic Heart Disease, Hypercholesterolemia, Congestive Heart Failure, Edema, Deep Vein Thrombosis and Hypertension RESPIRATORY: Positive Asthma, Pneumonia, Pulmonary Embolism and Sleep Apnea; Negative Chronic Obstructive Pulmonary Disease (COPD) GASTROINTESTINAL: Positive Gastrointestinal Disorders, Gastroesophageal Reflux Disease and Obesity GENITOURINARY: Positive Genitourinary Disorders, Kidney Stones and Benign Prostatic Hyperplasia; Negative Renal Disease MUSCULOSKELETAL: Positive Musculoskeletal Disorders and Gout ENDOCRINE: Positive Endocrine Disorders and Diabetes Mellitus Type 2; Negative Diabetes Mellitus Type 1 HEMATOLOGIC: Positive Blood Disorders and Clotting Problems (Factor V mutation); Negative Anemia or Sickle Cell Disease PSYCHO/SOCIAL: Positive Anxiety OTHER HISTORY: Positive Developmental Delay and Falls; Negative Autoimmune Disease, Blood Transfusions, Anesthesia Reactions or Cancer Family History FAMILY HISTORY: Positive Family Cardiac Disorders, Family Cancer and Family Surgery; Negative Family Neurologic Problems, Family Psychiatric Problems, Family Respiratory Disorders, Family Gastrointestinal Problems or Family Anesthesia Reaction Surgical History SURGICAL: Positive Vascular Surgery and Angiogram; Negative Coronary Stent Social History SMOKING STATUS: Never smoker SECOND HAND EXPOSURE: No SUBSTANCE USE: does not use 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 Withdrawing only to painful stimuli. HEENT: NCAT, EOMI, Pupils reactive ZULMA, not icteric. External ears normal. No rhinorrhea. Moist mucous membranes. Neck: Supple, full range of motion, no observable masses, No meningeal sign. But neck is very stiff. Lungs: No Respiratory distress, clear bilateral. CV: RRR, no murmurs. Abdomen: Soft, distended, No rebound tenderness. MSK: No joint swelling, no redness, peripheral pulses presents, lumbar with no edema. Skin: No rashes, petechiae, lesions. Neuro: Left preferential gaze appreciated, mild left upper extremity gaze. Patient is nonverbal and not following commands. Patient is able to withdraw to painful stimuli. Course Quality Measures none Orders Category Date Time Status Bedside Blood Glucose NOW Care 06/22/25 04:17 Active Restorative Aide NOW Care 06/22/25 04:17 Active Continuous Pulse Oximetry NOW Care 06/22/25 04:17 Completed EKG (ED ONLY) *Do not use* NOW Care 06/22/25 04:17 Completed In and Out Catheter NEEDED Care 06/22/25 04:17 Active Insert IV NOW Care 06/22/25 04:17 Active NIH Stroke Scale now Care 06/22/25 04:17 Active NPO NOW Care 06/22/25 04:17 Active Neuro Check Q4H Care 06/22/25 04:17 Active Nurse Swallow Screen x1 Care 06/22/25 04:17 Active Consult to Neurology / Tele-Neurology Routine Cons 06/22/25 04:[address] abdomen pelvis wo con Stat Exams 06/22/25 05:[address] angio stroke protocol Stat Exams 06/22/25 04:[address] stroke protocol Stat Exams 06/22/25 04:17 Taken EKG (ED Only) Stat Exams 06/22/25 04:17 Ordered XR chest 1V portable Stat Exams 06/22/25 04:17 Taken Arterial Blood Gas Stat Lab 06/22/25 05:06 Completed B-Type Natriuretic Peptide Stat Lab 06/22/25 04:20 Completed CBC Stat Lab 06/22/25 04:20 Completed Comprehensive Metabolic Panel Stat Lab 06/22/25 04:20 Completed Drug Screen,Urine Stat Lab 06/22/25 05:06 Ordered Lactic Acid [Lactate (Lactic Acid)] Stat Lab 06/22/25 04:20 Completed Magnesium Stat Lab 06/22/25 04:20 Completed Partial Thromboplastin Time Stat Lab 06/22/25 04:20 Completed Prothrombin Time with INR Stat Lab 06/22/25 04:20 Completed Troponin I Stat Lab 06/22/25 04:20 Completed Urinalysis Stat Lab 06/22/25 05:06 Ordered Urine Culture Stat Lab 06/22/25 04:17 Ordered Labetalol IV [Trandate IV] Med 06/22/25 04:17 Active 10 mg IVP Q15M PRN Ondansetron Inj [Zofran Inj] Med 06/22/25 04:17 Active 4 mg IVP Q4HR PRN EEG Awake and Drowsy Routine RT 06/22/25 05:47 Ordered Oxygen Delivery NOW RT 06/22/25 04:17 Active Vital Signs Vital signs: Vital Signs Temperature 97.9 F 06/22/25 04:14 Pulse Rate 72 06/22/25 04:14 Respiratory Rate 16 06/22/25 04:14 Blood Pressure 140/94 H 06/22/25 04:14 Pulse Oximetry (%) 96 06/22/25 04:14 Oxygen Delivery Method Room Air 06/22/25 04:14 Discharge Plan Prescriptions/Referrals Prescriptions/Med Rec: No Action lisinopril 20 MG tablet 20 mg PO BID Qty: 0 Patient Comments: PER ROOMATE ALEXANDRA, ONLY TAKES IF SBP >125 metformin 500 mg tablet 500 mg PO HS Patient Comments: TAKE 1 TABLET BY MOUTH EVERY DAY AT BEDTIME FOR DIABETES ropinirole 0.25 mg Tablet 0.25 mg PO HS Patient Comments: 1-3 HRS PRIOR TO BEDTIME amiodarone 200 mg Tablet 200 mg PO QDAY atorvastatin 40 mg tablet 40 mg PO HS Patient Comments: TAKE 1 TABLET BY MOUTH AT BEDTIME FOR CHOLESTEROL meclizine 25 mg tablet 25 mg PO BID PRN (Reason: Dizziness) Patient Comments: TAKE 1-2 TABLETS BY MOUTH TWICE A DAY NEEDED FOR DIZZINESS tamsulosin [Flomax] 0.4 mg capsule 0.4 mg PO QDAY Qty: 7 0RF acetaminophen-codeine 300-30 mg tablet 1 tab PO BID PRN (Reason: pain) Qty: 14 0RF Ozempic 1 mg/dose (4 mg/3 mL) pen injector 1.75 mg SUBCUT QWEEK Patient Comments: Rx Instructions: 1 time weekly duloxetine 30 mg capsule,delayed release(DR/EC) 30 mg PO QDAY finasteride 5 mg tablet 5 mg PO QDAY Patient Comments: TAKE 1 TABLET BY MOUTH EVERY DAY allopurinol 100 mg tablet 200 mg PO DAILY Patient Comments: TAKE 2 TABS BY MOUTH 1 TIME A DAY FOR GOUT multivitamin [Daily Multi-Vitamin] Tablet 1 tab PO QAM loratadine [Claritin] 10 mg tablet 10 mg PO QDAY PRN (Reason: allergic symptoms) ondansetron HCl 4 mg tablet 4 mg PO TID PRN (Reason: nausea and vomiting) Xarelto 20 mg tablet 20 mg PO QDAY Qty: 30 3RF Rx Instructions: must administer with evening meal Problem List Clinical Impression: Acute encephalopathy Patient/Caregiver Discharge Instructions Print Language: Paraguayan MDM Narrative MDM hospital course: Patient was immediately seen and assessed by myself upon arrival. Stroke alert was called given assessment findings. Diagnostic labs and imaging was ordered. Spoke with teleneurology who stated that this time CT did not show any acute stroke. Did mention that sutures could be a possibility and that if head CT was negative would recommend to get a EEG to rule out active seizures and if EEG comes back unremarkable then would continue with MRI/MRA. At this time patient is not a candidate for thrombolytics given use of Xarelto. Also mentioned not to start Keppra at this time until EEG comes back. Recommended altered mental status workup. Patient was also noted not to have any urine output once the Villeda catheter was placed. Patient's blood work showed slightly elevated hemoglobin, ABG showed mild hypoxemia at 71, troponins came back elevated at 0.561, but patient does have chronically elevated troponins and EKG did not show any ST changes. Bladder scan showed around 100 cc of urine in the bladder, but no output with the Villeda. Spoke with teleradiology who stated that patient's head CT showed a chronic Lacunar infarct in the left basal ganglia, but no acute infarct seen. Also mentioned that head CT was negative for any LVO. Patient's nurse stated that when attempting to straight cath patient they felt some resistance therefore did not proceed with straight cathing the patient. Given this we will order abdomen/pelvis CT to rule out any obstruction. 6:10: Patient's care was signed out to Dr. Shukla [facility] ED physician. Case disclosed with Attending Dr. Tanya Christine PGY2 Disclaimer: Even though this this note was dictated by speech recognition and even though it was carefully revised there may still be minor errors in demurrage worker due to voice recognition software. Medication Administration(s) Medication Administration History Labetalol HCl (Labetalol Inj 5 Mg/Ml Vial 20 Ml) 10 mg IVP Q15M PRN PRN Reason: HYPER Ondansetron HCl (Ondansetron Inj 2 Mg/Ml Inj 2 Ml) 4 mg IVP Q4HR PRN PRN Reason: NAUSEA OR VOMITING Stop: 07/22/25 04:16
--- NOTE | 2025-06-22 04:20 | PC.NURSE ---
Case Consult 06/22/2025 04:20:23 [facility] Case # [id number] has been created.
[2025-06-22 04:31] LABS: Basophils # (Auto) 0.0 Thou/mm3 (0.0-0.2); Basophils % (Auto) 1 % (0-2.5); Eosinophils # (Auto) 0.1 Thou/mm3 (0.0-0.5); Eosinophils % (Auto) 2 % (0-10); Hematocrit 51.7 % (41.0-53.0); Hemoglobin 17.5 g/dL (13.5-16.0); Immature Granulocytes Auto 0.02 Thou/mm3 (0.00-0.00); Lymphocytes # (Auto) 2.3 Thou/mm3 (1.0-4.8); Lymphocytes % (Auto) 32 % (10-50); Mean Corpuscular HGB Conc 33.8 g/dl (31.0-37.0); Mean Corpuscular Hemoglobin 31.0 pg (25.0-35.0); Mean Corpuscular Volume 92 fL (80-100); Monocytes # (Auto) 0.8 Thou/mm3 (0.0-0.8); Monocytes % (Auto) 11 % (0-12); Neutrophils # (Auto) 4.0 Thou/mm3 (1.8-7.7); Neutrophils % (Auto) 55 % (37-80); Nucleated Red Blood Cell # 0.00 Thou/mm3 (0.00-0.00); Nucleated Red Blood Cell % 0 /100 WBC (0); Platelet Count 244 Thou/mm3 (140-440); RDW Standard Deviation 44.3 fL (35.1-43.9); Red Blood Count 5.64 Miln/mm3 (4.50-5.90); White Blood Count 7.3 Thou/mm3 (3.8-10.6)
[2025-06-22 04:47] LABS: Lactate (Lactic Acid) 1.1 mMol/L (0.4-2.0)
[2025-06-22 04:51] LABS: INR 1.2 (0.9-1.3); Partial Thromboplastin Time 34.2 Seconds (22.0-36.0); Prothrombin Time 13.0 Seconds (9.0-12.2)
[2025-06-22 04:59] LABS: Alanine Aminotransferase 26 U/L (10-49); Albumin, Serum 4.2 gm/dL (3.5-5.0); Albumin/Globulin Ratio 1.8 (1.2-2.2); Alkaline Phosphatase 185 U/L (46-116); Anion Gap 9 (7-16); Aspartate Amino Transferase 29 U/L (0-34); BUN/Creatinine Ratio 9 Ratio (12-20); Bilirubin,Total 0.5 mg/dL (0.3-1.2); Blood Urea Nitrogen 11 mg/dL (9-23); Calcium 8.8 mg/dL (8.3-10.6); Calcium (Corrected) 8.8 mg/dL (8.5-10.1); Carbon Dioxide 27.9 mMol/L (20.0-31.0); Chloride 106 mMol/L (98-107); Creatinine (Component) 1.2 mg/dL (0.6-1.3); Globulin 2.4 gm/dL (2.3-3.5); Glucose 96 mg/dL (74-106); Magnesium 1.6 mg/dL (1.6-2.6); Osmolality,Calculated 284 (275-295); Potassium 4.2 mMol/L (3.4-5.1); Sodium 143 mMol/L (136-145); Total Protein 6.6 gm/dL (5.7-8.2); eGFR > 60 See Note
[2025-06-22 05:05] LABS: Troponin I 0.561 ng/mL (0.0-0.045)
[2025-06-22 05:06] LABS: Base Excess 2 (-3-3); HCO3 28 mEq/L (20-26); Inspired Oxygen, FIO2 21 %; O2 Saturation 95 % (91-98); PCO2 45 mmHg (32.0-48.0); PO2 71 mmHg (83-108); pH, Arterial 7.40 (7.35-7.45)
--- NOTE | 2025-06-22 05:08 | ESCONSULT_ITS ---
Tele Neuro Consultation Consultation Date 06/22/25 Most Recent Vital Signs Last Vital Signs Temp 98.9 F 06/22/25 05:05 Pulse 66 06/22/25 05:05 Resp 15 06/22/25 05:05 BP 144/103 H 06/22/25 05:05 Pulse Ox 97 06/22/25 05:05 O2 Del Method Room Air 06/22/25 05:05 Laboratory-Coagulation Panel PT 13.0 Seconds (9.0-12.2) H 06/22/25 04:20 INR 1.2 (0.9-1.3) 06/22/25 04:20 APTT 34.2 Seconds (22.0-36.0) 06/22/25 04:20 Consultation Narrative [facility] Tele[facility]urology Consult [facility] Patient Name:???Misbah Mcnulty Date of :???1975 Identification Number:??? Date of Service:???06/22/2025 04:20:23 Diagnosis:?R41.89 - Unresponsive Impression: ?50 year old (on Xarelto for recent DVT) who was reported to have abdominal pain/dizziness around 6pm and then found with decreased responsiveness this morning. Would pursue broad workup. Our recommendations are outlined below. Recommendations: ? Stroke/Telemetry Floor ? Neuro Checks (Q2) ? Bedside Swallow Eval ? DVT Prophylaxis ? IV Fluids, Normal Saline ? Head of Bed 30 Degrees ? Euglycemia and Avoid Hyperthermia (PRN Acetaminophen) ? Hold Anticoagulation for Now ?Hold AC until we know whether there is acute stroke on MRI. If no stroke found, ok to restart AC. If acute stroke found, neurology FU for AC restart decision timing ?STAT EEG (if positive for seizure/epileptiform activity, patient needs AED started and transition to continuous EEG) ?MRI brain with and without contrast ?MRV ?TTE/ECHO ?A1C, LDL, B12, TSH with T3/4, Mag, Ammonia, Tox, Infectious workup ?High dose statin if stroke found ?Cardiac Monitoring ?Cardiac/GI workup (this started with nausea and dizziness last night) per ED/primary team ?Inpatient neurology FU recommended post EEG, MRI brain for further evaluation Sign Out: ? Discussed with Emergency Department Provider Advanced Imaging: CTA Head and Neck Completed. LVO:No Patient is not a candidate for TONY Metrics: Last Known Well: Unknown Dispatch Time: 06/22/2025 04:20:23 Arrival Time: 06/22/2025 04:05:00 Initial Response Time: 06/22/2025 04:21:34Symptoms: Dizzy and nausea at 6pm, found unresponsive this morning. Initial patient interaction: 06/22/2025 04:24:22 NIHSS Assessment Completed: 06/22/2025 04:29:29Patient is not a candidate for Thrombolytic. Thrombolytic Medical Decision: 06/22/2025 04:29:30Patient was not deemed candidate for Thrombolytic because of following reasons: LKW outside 4.5 hr window. . Use of NOAC in last [address] Head: I personally reviewed all the CT images that were available to me and it showed: no evidence of bleed Primary Provider Notified of Diagnostic Impression and Management Plan on: 06/22/2025 04:46:12 History of Present Illness:Patient is a 50 year old Male. Patient was brought by EMS for symptoms of Dizzy and nausea at 6pm, found unresponsive this morning. This is a 50 year old who presents with neurologic changes. Patient is unable to provide the story. 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 EMS had already left by the time I logged onto the camera. The only story that I have available to me is what the ED provider/nurse received from EMS. The story is that patient was noted to have nausea, abdominal pain, and was very dizzy at around 6pm on 06/21. As dizziness/vertigo is a common stroke symptom, patient's LKN is currently unknown, but presumed to be prior to 6pm on 06/21. Then this morning patient's mom came to see patient and found that he was unresponsive. For this reason EMS was called. Per ED nurse, patient's mom is apparently on her way at this time. If mom arrives and provides information which is different from the above, ED will be in touch with me to provide relevant updates. Of note, patient also is on Xarelto, and so assuming he takes this medication, or took within 48 hours, he would not be TNK candidate regardless. On exam patient's eyes are open, they are pointed to the L, however his head is also pointed to the L. He does not speak or attempt to communicate or follow directions. He does not move his extremities. There are no ketan signs of abnormal movement or seizure. He does reliably react by withdrawing to to light noxious in 4 extremities which makes status less likely. CT head showed no evidence of bleed. CTA does not appear to show evidence of LVO, formal read pending. ED provider states that this facility can perform a STAT EEG. I asked for STAT EEG and for broad workup and patient will be admitted. Past Medical History: ?Hypertension ?Diabetes Mellitus ?There is no history of Atrial Fibrillation ?There is no history of Stroke ?There is no history of Seizures Medications: Anticoagulant use:??Yes?Xarelto No Antiplatelet use Reviewed EMR for current medications Allergies:? Reviewed Social History: Smoking: No Alcohol Use: No Drug Use: No Family History: There is no family history of premature cerebrovascular disease pertinent to this consultation ROS :?ROS Cannot Be Obtained Because:? Patient Cannot Speak Past Surgical History: There Is No Surgical History Contributory To Today?s Visit NIHSS may not be reliable due to: Patient cannot participate in exam Examination: BP(140/94),?Pulse(72),?Blood Glucose(95) 1A: Level of Consciousness - Movements to Pain?+ 2 1B: Ask Month and Age - Could Not Answer Either Question Correctly?+ 2 1C: Blink Eyes & Squeeze Hands - Performs 0 Tasks?+ 2 2: Test Horizontal Extraocular Movements - Partial Gaze Palsy: Can Be Overcome?+ 1 3: Test Visual Reed - No Visual Loss?+ 0 4: Test Facial Palsy (Use Grimace if Obtunded) - Normal symmetry?+ 0 5A: Test Left Arm Motor Drift - No Movement?+ 4 5B: Test Right Arm Motor Drift - No Movement?+ 4 6A: Test Left Leg Motor Drift - No Movement?+ 4 6B: Test Right Leg Motor Drift - No Movement?+ 4 7: Test Limb Ataxia (FNF/Heel-Oneil) - No Ataxia?+ 0 8: Test Sensation - Normal; No sensory loss?+ 0 9: Test Language/Aphasia - Mute/Global Aphasia: No Usable Speech/Auditory Comprehension?+ 3 10: Test Dysarthria - Mute/Anarthric?+ 2 11: Test Extinction/Inattention - No abnormality?+ 0 NIHSS Score:?28 Pre-Morbid Modified Montcalm Scale:0 Points = No symptoms at all Spoke with :?Primary ED provider This consult was conducted in real time using interactive audio and video technology. Patient was informed of the technology being used for this visit and agreed to proceed. Patient located in hospital and provider located at home/office setting. Patient is being evaluated for possible acute neurologic impairment and high probability of imminent or life-threatening deterioration. I spent total of 50 minutes providing care to this patient, including time for face to face visit via telemedicine, review of medical records, imaging studies and discussion of findings with providers, the patient and/or family. Dr Kevin Arteaga [facility] For Inpatient follow-up with [facility] physician please call [facility] at . As we are not an outpatient service for any post hospital discharge needs please contact the hospital for assistance. If you have any questions for the [facility] physicians or need to reconsult for clinical or diagnostic changes please contact us via [facility] at . Signature :?Kevin Arteaga
[2025-06-22 05:09] LABS: Allen Test Performed/OK; Puncture Site Right Radial
[2025-06-22 05:10] LABS: B-Type Natriuretic Peptide < 20 pg/mL (0-100)
--- NOTE | 2025-06-22 05:34 | PRELIM_ITS ---
CT angiogram of the head and neck with intravenous contrast (axial sections with sagittal and coronal reformats) June 22, 2025 0438 hours Clinical History: Focal neuro deficit, stroke suspected. Comparison: CT of May 09, 2025. Findings: Head: The internal carotid, middle and anterior cerebral arteries are patent bilaterally. The intracranial vertebral arteries are patent. The vertebrobasilar junction, basilar and posterior cerebral arteries are patent. No evidence of large vessel occlusion, critical stenosis or aneurysm. Neck: The aortic arch to the extent visualized as well as the origins of the right brachiocephalic, left common carotid, and left subclavian arteries are patent. The common carotid arteries, carotid bulbs, and internal and external carotid arteries are patent. The origins of the vertebral arteries are unremarkable. The left vertebral artery is dominant. No evidence of vascular occlusion, critical stenosis, dissection or aneurysm. The soft tissues of the neck are unremarkable. The osseous structures are unremarkable. Impression: Head: No evidence of large vessel occlusion, critical stenosis or aneurysm. Neck: No evidence of vascular occlusion, critical stenosis, dissection or aneurysm. Discussion Details: Results verbally communicated to : Dr. Schilling at 05:32 AM 06/22/2025 Report Electronically Signed By: Gideon Duarte 06/22/2025 5:33:52 AM [EST]
--- NOTE | 2025-06-22 05:35 | PRELIM_ITS ---
CT scan of the head without intravenous contrast (axial sections with sagittal and coronal reformats) June 22, 2025 0433 hours Clinical History: Stroke. Comparison: No prior study is available for comparison. Findings: Chronic small lacunar infarct in the left basal ganglia. No evidence of intracranial hemorrhage, mass effect or midline shift. The ventricles and CSF spaces are unremarkable. The calvarium is unremarkable. The mastoid air cells and the visualized paranasal sinuses are clear. Impression: Chronic small lacunar infarct in the left basal ganglia. No evidence of intracranial hemorrhage, mass effect or midline shift. Aspect score 10 Discussion Details: Results verbally communicated to : Dr. Schilling at 05:28 AM 06/22/2025 Report Electronically Signed By: Gideon Duarte 06/22/2025 5:34:37 AM [EST]
--- NOTE | 2025-06-22 05:40 | XR_ITS ---
Examination: CT abdomen and pelvis without contrast. Coronal 3-D reconstructions. Sagittal 2-D reconstructions. Date and time of exam:Portable abdomen, 2024, 0629 hours INDICATIONS: Abdominal pain this week CTDI: vol (mGy): 12.1 DLP: (mGycm): 778 Technique: Axial images of the abdomen have been obtained, 3 mm slice thickness Intravenous contrast material has not been administered. Low dose protocols were performed. One or more of the following dose reduction techniques were used; automated exposure control, adjustment of the mA and/or KV according to patient size, use of iterative reconstruction technique. Findings: Contracted gallbladder No focal liver or splenic lesion No pancreatic or adrenal mass No renal or ureteral calculi, no hydronephrosis Aorta normal size IVC filter satisfactory position Normal appendix No bowel obstruction No diverticulitis Transverse prostate dimension 2.9 cm No urinary bladder mass Tiny fat-containing left inguinal hernia Mild osteopenia IMPRESSION: No urinary obstruction No renal or ureteral calculi, no hydronephrosis Normal appendix No bowel obstruction Negative for prostatomegaly
--- NOTE | 2025-06-22 06:38 | PD.EDADDENDU ---
Emergency Room Addendum Addendum Narrative: 0600: Care assumed from resident Dr. Schilling PGY2. Past medical, surgical, social and family history reviewed. Vitals and home medications reviewed. I will assume the care of the patient at this time, pending CT abdomen/pelvis report and final disposition. Please refer to the emergency department record for history and examination from initial visit.?The following addendum documentation note is intended to reflect any pending information, findings, or radiology results not included in the patient?s initial chart. 0752: I spoke with residents working with Dr. Whatley. Discussed patients PMHx, HPI, ED course, exam findings, labs, and radiology results. The hospitalist will come evaluate the patient. Patient accepted for admission by hospitalist. RADIOLOGY Ordering Physician: Vincent Fish MD Date of Service: 06/22/25 Procedure(s): CT abdomen pelvis wo con Accession Number(s): [id number] cc: Deon Hand MD; NO PRIMARY/FAMILY,PHYSICIAN; Vincent Fish MD~ Examination: CT abdomen and pelvis without contrast. Coronal 3-D reconstructions. Sagittal 2-D reconstructions. Date and time of exam:Portable abdomen, 2024, 628 hours INDICATIONS: Abdominal pain this week CTDI: vol (mGy): 12.1 DLP: (mGycm): 778 Technique: Axial images of the abdomen have been obtained, 3 mm slice thickness Intravenous contrast material has not been administered. Low dose protocols were performed. One or more of the following dose reduction techniques were used; automated exposure control, adjustment of the mA and/or KV according to patient size, use of iterative reconstruction technique. Findings: Contracted gallbladder No focal liver or splenic lesion No pancreatic or adrenal mass No renal or ureteral calculi, no hydronephrosis Aorta normal size IVC filter satisfactory position Normal appendix No bowel obstruction No diverticulitis Transverse prostate dimension 2.9 cm No urinary bladder mass Tiny fat-containing left inguinal hernia Mild osteopenia IMPRESSION: No urinary obstruction No renal or ureteral calculi, no hydronephrosis Normal appendix No bowel obstruction Negative for prostatomegaly Dictated By: Deon Hand MD Signed By: <Electronically signed by Deon Hand MD in [place]>06/22/25 0711
[2025-06-22 07:31] LABS: Alcohol, Blood Medical < 3.0 mg/dL (0-10.0); Ammonia 37 uMol/L (11-32)
--- NOTE | 2025-06-22 08:14 | PC.NURSE ---
Dr Chase at bedside speaking with patient. Patient answers questions appropriately at this time.
--- NOTE | 2025-06-22 08:48 | EKG_ITS ---
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
[2025-06-22 09:10] LABS: Collection Type, Urine Catheter; Squamous Epithelial Cell,Urine 0 /hpf (0-5)
[2025-06-22 09:16] LABS: Glucose Estimated Average 123 mg/dL (80-131); Hemoglobin A1C 5.9 % Hgb (4.8-6.0)
[2025-06-22 09:18] LABS: Cardiac Risk Estimate 2.8 RATIO (4.0-6.7); Cholesterol 93 mg/dL (132-200); Free T4 (Free Thyroxine) 1.41 ng/dL (0.89-1.76); HDL Cholesterol 33 mg/dL (40-60); LDL Cholesterol,Calculated 35 mg/dL (0-130); Triglycerides 126 mg/dL (30-150)
[2025-06-22 09:19] LABS: Bilirubin,Urine Negative (Negative); Blood,Urine Negative (Negative); Clarity,Urine Clear (Clear/Hazy); Color,Urine Yellow (Lt Yel-Yel); Glucose, Urine Negative (Negative); Ketones,Urine Negative (Negative); Leukocyte Esterase,Urine Negative (Negative); Nitrite,Urine Negative (Negative); PH,Urine 6.5 (5.0-7.0); Protein,Urine Negative (Neg - Trace); RBC,Urine 6 /hpf (0-3); Urobilinogen,Urine Negative mg/dL (0.0-1.0); WBC,Urine 15 /hpf (0-5)
[2025-06-22 09:20] LABS: Amphetamine/Methamp Scrn,U Negative (Negative); Barbiturate Screen,Urine Negative (Negative); Benzodiazepines Screen,Urine Negative (Negative); Benzoylecgonine Screen, Ur Negative (Negative); Fentanyl Screen,Urine Negative (Negative); Opiate Screen,Urine Negative (Negative); THC Screen,Urine Negative (Negative)
[2025-06-22 09:21] LABS: Specific Gravity,Urine 1.020 (1.001-1.035)
[2025-06-22 09:32] LABS: Carboxyhemoglobin 1.9 % (0.5-1.5)
[2025-06-22] MEDS: Magnesium Sulfate 4 GM Ivpb 4 GM/50 ML BAG IV (09:42)
[2025-06-22] MEDS: ONDANSETRON INJ 2 MG/ML INJ 2 ML 4 MG IVP (09:44)
[2025-06-22] MEDS: AMIODARONE HCL 200 MG TABLET PO (09:46)
[2025-06-22 10:23] LABS: Folate > 24.00 ng/mL (>5.38); Vitamin B12 655 pg/mL (211-911)
--- NOTE | 2025-06-22 11:05 | ESHP_ITS ---
<Statement entered by Chace Whatley MD - 06/25/25 09:12> I reviewed above note and agree with findings and plans. I have also personally examined the patient with medicine team and went over assessment and plan with medical team including internal revenue service agent and resident physician. <Statement entered by Balbina Chase MD - 06/24/25 04:54> Patient was seen and examined at bedside. I agree on the assessment and plan on this note as documented by resident Salud Landers PGY1. Mr. Mcnulty is a 50-year-old male with past medical history as below, patient presented to emergency department for altered mental status, unarousable in the ED. On evaluation in the emergency department patient awake alert and oriented x 3. Per nurse at bedside unable to obtain UA, Villeda catheter was not placed, patient mentioned that he is able to void, does have history of BPH. Patient provided urinalysis sample. Otherwise patient's acute encephalopathy likely secondary to polypharmacy, reports that his medications were recently adjusted by his primary care physician. Reports adherence outpatient to medication regimen. Patient will be admitted to telemetry, will resume home medications, neurochecks every 4 hours, ordered MRI, blood culture, vitamin B12 levels, folate level, carboxyhemoglobin level, started patient on atorvastatin, hold Xarelto home dose for DVT per teleneurology recommendations. Consulted neurologist, resumed home dose amiodarone for atrial fibrillation, does have heart failure with preserved ejection fraction, started on sliding scale insulin. Hold home dose gabapentin and duloxetine. Disposition telemetry, pending improvement underlying mentation. Case discussed with attending Dr. Phylicia Chase MD PGY-2 Documentation for date of: 06/22/25 HPI History of Present Illness Chief complaint: nausea, dizziness and chest pain History of present illness: Mr. Mcnulty is a 50-year-old male past medical history of hypertension, CAD, Diabetes Mellitus type 2, HFpEF (EF 55%-60%), CAD, factor V Leiden mutation, pulmonary embolism, DVT s/p IVC filter, obstructive sleep apnea, BPH, hyperthyrodism, was brought in by EMS for altered mental status. Per patient, yesterday evening he felt pressure-like chest pain radiating to left arm, nausea and lightheadedness before falling asleep. Afterwards, his roommate went to check up on him and found him unresponsive and call EMS. Patient also endorses headache, fatigue, paroxysmal nocturnal dyspnea, urinary retention. He denies shortness of breath, orthopnea,vomiting and changes in bowel movement. ED Course: -Initial vitals were BP 140/94, temp 97.9, Pulse 72, RR 16 and O2 sat 96% on room air -Labs significant for hemoglobin 17.5, PT 13s, ABG: PO2 71, HCO3 28, carboxyHg 1.9, BUN/Cr 9, alkaline phosphate 185, troponin 0.561. UA (-), Utox (-). -Imaging included CT head is negative for acute hemorrhage, CXR shows moderate vascular congestion, head/neck CTA shows no significant neck arterial stenoses, abdominal CTA showed no urinary obstruction, negative for prostatomegaly. ekg sinus rhythm. -In the ED, patient was given ondansetron, pantoprazole, amiodarone and Magnesium sulfate Patient was admitted for altered mental status and possible CVA workup. Review of Systems Review of systems otherwise negative except what is mentioned above. Past Medical History: as mention above Family History: father- cancer (unspecified) Surgical History: IVC filter placement, cardiac angiogram Social History:Denies history of smoking, denies current alcohol use, denies recreational drug use Current Medications: (Source: Amiodarone 200 mg, pantoprazole 40 mg , Ondansetron 4mg, Magnesium sulfate) Allergies: No known drug allergies Past Medical History Family History FAMILY HISTORY: Positive Family Cancer (father has cancer) Exam Vital Signs Temp Pulse Resp BP Pulse Ox O2 Del Method O2 Flow Rate 98.5 F 78 16 139/102 H 98 Nasal Cannula 2 06/22/25 09:00 06/22/25 09:46 06/22/25 09:00 06/22/25 09:46 06/22/25 09:00 06/22/25 09:00 06/22/25 09:00 Narrative Exam Physical Exam General: Awake and in no acute distress. Conversational and non-toxic appearing. HEENT: Normocephalic, atraumatic, conjuctival injection,dry mucous membranes. Heart: Regular rate and rhythm, normal S1 and S2, no murmurs. Lungs: Decreased breath sounds at bases bilaterally, Clear to auscultation with no wheezing or crackles. Abdomen: Soft, distended,nontender, positive bowel sounds. ?No guarding or rebound tenderness. Neurologic: Alert and oriented x3, no gross neurological deficit, and patient able to move all 4 extremities. Cranial II- XII, Motor: Strength 5/5 in all extremities proximally and distally. No pronactor drift. Extremities: No edema. Skin: No rash or ecchymoses. Results: Labs 06/23/25 08:47 06/23/25 08:47 Labs: Short CBC 06/22/25 Range/Units 04:20 WBC 7.3 (3.8-10.6) Thou/mm3 Hgb 17.5 H (13.5-16.0) g/dL Hct 51.7 (41.0-53.0) % Plt Count 244 (140-440) Thou/mm3 BMP 06/22/25 04:20 Sodium 143 Potassium 4.2 Chloride 106 Carbon Dioxide 27.9 BUN 11 Creatinine 1.2 Glucose 96 Calcium 8.8 Cardiac Enzymes 06/22/25 Range/Units 04:20 Troponin I 0.561 H* (0.0-0.045) ng/mL Liver Function 06/22/25 Range/Units 04:20 Total Bilirubin 0.5 (0.3-1.2) mg/dL AST 29 (0-34) U/L ALT 26 (10-49) U/L Alkaline Phosphatase 185 H (46-116) U/L Albumin 4.2 (3.5-5.0) gm/dL Urine 06/22/25 Range/Units 05:06 Urine Color Yellow (Lt Yel-Yel) Urine Clarity Clear (Clear/Hazy) Urine pH 6.5 (5.0-7.0) Ur Specific [place] 1.020 (1.001-1.035) Urine Protein Negative (Neg - Trace) Urine Glucose (UA) Negative (Negative) ABG Interpretation ABG results: 06/22/25 05:06 ABG pH 7.40 ABG pCO2 45 ABG pO2 71 L ABG HCO3 28 H ABG O2 Saturation 95 ABG Base Excess 2 Quality Measures Quality Measures none Medications Home Medications and Allergies Home Medications ?Medication ?Instructions ?Recorded ?Confirmed ?Type lisinopril 20 mg tablet 20 mg PO BID #0 tabs 7 06/23/25 History metformin 500 mg tablet 500 mg PO HS 06/28/21 History ropinirole 0.25 mg tablet 0.25 mg PO HS 10/03/2106/23 History amiodarone 200 mg tablet 200 mg PO QDAY 04/05/2206/12 History atorvastatin 40 mg tablet 40 mg PO HS 09/04/22 5 History duloxetine 30 mg capsule,delayed 30 mg PO QDAY 3 06/23/25 History release Held on 06/23/25. Instructions: Resume on 06/30/25. follow up with pcp before resuming finasteride 5 mg tablet 5 mg PO QDAY 10/24/23 History allopurinol 100 mg tablet 200 mg PO DAILY 01/07/2511/05 History loratadine 10 mg tablet (Claritin) 10 mg PO QDAY PRN a llergic symptoms 01/07/25 06/23/25 History multivitamin (Daily Multi-Vitamin 1 tab PO QAM 5 06/23/25 History tablet) ondansetron HCl 4 mg tablet 4 mg PO TID PRN nausea and vomiting 01/07/25 06/23/25 History albuterol sulfate 90 mcg/actuation 90 mcg inhalation Q 4H PRN 06/23/25 06/23/25 History breath activated powder inhaler shortness of breath or wheezing (ProAir RespiClick) benzonatate 200 mg capsule 200 mg PO 3XD PRN cough 11/0506/23/25 History furosemide 20 mg tablet 20 mg PO DAILY 06/23/2506/12 History gabapentin 100 mg capsule 100 mg PO 3XD 06/23/2506/23 History Allergies Allergy/AdvReac Type Severity Reaction Status Date / Time No Known Allergies Allergy Verified 05/25/25 20:44 Visit Medications Acetaminophen (Acetaminophen 325 Mg Tablet) 650 mg PO Q6H PRN PRN Reason: Pain (1-3) & Fever >100.4 Stop: 07/22/25 08:24 Amiodarone HCl (Amiodarone Hcl 200 Mg Tablet) 200 mg PO QDAY TUAN Stop: 07/22/25 08:59 Last Admin: 06/22/25 09:46 Dose: 200 mg Magnesium Sulfate (Magnesium Sulfate Ivpb) 4 gm in 50 mls @ 12.5 mls/hr IV X1 ONE Stop: 06/22/25 12:42 Last Admin: 06/22/25 09:42 Dose: 12.5 mls/hr Labetalol HCl (Labetalol Inj 5 Mg/Ml Vial 20 Ml) 10 mg IVP Q15M PRN PRN Reason: HYPER Ondansetron HCl (Ondansetron Inj 2 Mg/Ml Inj 2 Ml) 4 mg IVP Q4HR PRN PRN Reason: NAUSEA OR VOMITING Stop: 07/22/25 04:16 Last Admin: 06/22/25 09:44 Dose: 4 mg Pantoprazole Sodium (Pantoprazole Inj 40 Mg Vial) 40 mg IVP QDAY TUAN Stop: 07/22/25 08:59 Last Admin: 06/22/25 09:44 Dose: 40 mg Sennosides (Senna Tablet) 1 tab PO QDAY TUAN; Protocol Stop: 07/22/25 08:59 Last Admin: 06/22/25 09:46 Dose: 1 tab Assessment & Plan Plan A 50-year-old male past medical history of hypertension, CAD, Diabetes Mellitus type 2, HFpEF (EF 55%-60%), CAD, factor V Leiden mutation, pulmonary embolism, DVT s/p IVC filter, obstructive sleep apnea, BPH, hyperthyrodism, was brought in by EMS for altered mental status. Admitted for AMS and CVA work up. #Acute encephalopathy likely 2/2 polypharmacy #Altered Mental status, unspecified # CVA work-up Likely not metabolic because pt electrolytes Na,Ca, Mg and phos, Free T4, glucose levels, O2 sat are within normal limit. R/O infectious causes as pt is afebrile, WBC are wnl and UA was negative. Uncertain about structural cause and CT head is negative for acute hemorrage, but pending MRI. Patient 7 out 9 medication as been discountine, verify with pharmacy about compliance. Stroke code was alerted due to pt unresponsiveness and dizziness, however CT head was negative. Per neurology recommendation a broad work-up to investigate other causes. Plan - Neuro check q2 - Neuro recs appreciated: Hold anticoagulation until we know whether there is acute stroke on MRI. If no stroke found, ok to restart AC. - EEG pending - A1C - B12 Pending - start high dose statin if stroke found - PT/OT referral - Daily weight - Pending blood culture - Pending MRI # Paroxysmal Atrial fibrillation # Factor V Leiden mutation # DVT s/p IVC filter # History of thromboembolic disease/PE on anticoagulation -Patient have an history of thromboembolic disease embolic disease. [id number] score is 5 indicating strong benefit with anticoagulation. HAS-BLED score is 4, take precaution witth anticoagulation should be considered. Patient has a history of factor V Leiden mutation, electric abnormality seen that would likely increase the risk for this patient DVT and pulmonary embolism Plan - TELE monitor - Continue to monitor CBC and BMP - Continue Amiodarone 200 mg # Heart failure preserved ejection fraction( EF55-60) # elevated troponin # hx of CAD Patient last echo on 01/28/2025 LV size and function with EF 55-60%. Diastolic Dysfunction stage I. Patient troponin on admision was 0.561, trending downward to 0.494. Plan - Stright Is is and Os - Started on cardiac diet - Trend troponin - Potassium > 4, magnesium > 2 # Non- insulin dependent- Diabetes mellitus type 2 # diabetic neuropathy Patient does have a history of diabetic neuropathy for which she is managed at home. Medication include; gabapentin and metform 500 mg QD, duloxetine and ozempic . He also reports tingling and numbness lower extremities. A1c on 06/22/25 was 5.9. BG on admission 91 Plan - ISS ordered - Hypoglycemia protocol in place - Hold gabapentin due to AMS - Hold metformin # HTN # Hyperlipidemia Patient has a history of hypertension managed with lisinopril at home. Bp on admission was 140/9. Cholesterol 93, HLD 33. ASCVD score 4.1-consider moderate- intensity statin. Plan - Continue to monitor lipid panel - Started atorvastatin 40mg PO - Hold antihypertensive # BPH # Urinary retention Patient as a history of BPH managed with Flomax at home. Pending med rec. Plan - Hold tamsulosin - Bladder scan if patient still retaining urine - Plan trial and void if continue to retain urine Hospital management: Lines: peripheral IV Diet: Cardiac diet Bowel: Senna GI prophylaxis: pantoprazole DVT prophylaxis: SCDs Disposition: tele CVA work up and AMS. CODE STATUS: Full code Patient seen and assessed under supervision of attending physician Dr. Whatley and discuss with senior resident Dr. Chase PGY-2 Salud Landers MD PGY-1, Internal Medicine -
[2025-06-22 11:26] LABS: Troponin I 0.494 ng/mL (0.0-0.045)
--- NOTE | 2025-06-22 18:00 | PD.RESPRO ---
Documentation for date of: 06/22/25 Subjective Subjective Interval history: CC: altered mental status Patient is a 50 year old male with past medical history of Hypertension, Hyperlipdemia, Diabetes Mellitus type 2 on metformin and Ozemic, History of bilateral recurrent DVTs, history of PE s/p IVC filter on Xarelto, Factor V Leiden mutation on Xarelto, HFpEF 55-60% (05/11/2025), Diastolic Dysfunction, CAD, Hypothyroidism, history of gout, restless leg syndrome , AYLEEN on Cpap, and BPH who presented to the emergency via EMS with a chief complain of non-repsonsive . Patient stated he had a loss of at approximetly 18:00 on 06/21/2025. 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 He denied seizure like activity. Patient has also been complaining of dizziness. Patient stated continues to use Cpap at home but mask will be replaced as it does not fit well. Paitnet stated continues to wake up tired despite sufficient hours of sleep. NIHSS 34-->Repeat NIHSS socre by tele neuro 28. ED Course: BP 140/94, temp 97.9, Pulse 72, RR 16 and O2 sat 96% on room air CBC: 17.5 ABG:pH 7.40, pCO2 45, ABG pO2 45, O2 71, HCO3 28 CMP: Mag 1.6, Ammonia 37, Troponin 0.561, Repeat 0.[address] evlevation sinus BNP <20 Lipid Panel: Triglycerides 126, Cholesterol 93 L, LDL 35, HDL [address] head is negative for acute hemorrhage, CXR shows moderate vascular congestion, head/neck CTA shows no significant neck arterial stenoses, abdominal CTA showed no urinary obstruction, negative for prostatomegaly. Past Medical History: as mention above Medication: Acetaminophe-Codeine, Allopurinol, Amiodarone, Atorvastatin, Duloxetine, Finasteride, Lisinopril, Loratidine, Meclizien, Metformin, ONdaestron,. Xarelto, RoprinorleOzemic, Tamsuloin, Albuterol, Lasix 20 mg once daily, Metoprolol Tartrate 100 mg BID, Gabapentin 300 mg TID recently increased from Gabapentin 100 mg once TID, baclofen, Plavix 75 mg (?), Pending medication Reconcillation Family History: father- cancer (unspecified) Surgical History: IVC filter placement, cardiac angiogram Social History:Denies history of smoking, denies current alcohol use, denies recreational drug use Allergies: No known drug allergies Code: Full Code Exam Vital Signs Temp Pulse Resp BP Pulse Ox O2 Del Method O2 Flow Rate 96.3 F L 68 13 116/87 H 98 Nasal Cannula 2 06/22/25 23:19 06/22/25 23:19 06/22/25 23:19 06/22/25 23:19 06/22/25 23:19 06/22/25 23:19 06/22/25 23:19 Narrative Exam General Appearance: Alert & Oriented X3, well-nourished male who is lying in bed in no acute distress HEENT: Skull symmetrical and atraumatic. Conjunctivae pink and moist. Pupils equal, round, reactive to light and accommodation (PERRL). External ear without lesion or discharge. Straight, nares patient, mucosa appears dry, no discharge. Cardio: Normal Rate and Rhythm with S1 and S2 heart sounds. No murmurs or extra heart sounds auscultated. No bruits on carotid auscultation. No peripheral edema or cyanosis. Lungs: Symmetric with good expansion. Chest and back non-tender. Breath sounds vesicular without crackles, wheezing or rhonchi Abdomen: Non-tender, Non-distended, Normal Reactive Bowel Sounds Neuro: Alert, cooperative, oriented to person, place, and time. Speech clear. CN grossly intact. Upper motor strength 5/5 and Lower motor strength 5/5. Sensation intact. Objective Labs 06/22/25 04:20 06/22/25 04:20 Labs: Laboratory Results - last 24 hr 06/22/25 06/22/25 06/22/25 04:20 05:06 06:50 WBC 7.3 RBC 5.64 Hgb 17.5 H Hct 51.7 MCV 92 MCH 31.0 MCHC 33.8 RDW Std Deviation 44.3 H Plt Count 244 Neut % (Auto) 55 Lymph % (Auto) 32 [place] % (Auto) 11 Eos % (Auto) 2 Baso % (Auto) 1 Neut # (Auto) 4.0 Lymph # (Auto) 2.3 Ramsey # (Auto) 0.8 Eos # (Auto) 0.1 Baso # (Auto) 0.0 Immature Gran # (Auto) 0.02 H Absolute Nucleated RBC 0.00 Immature Gran % 0 Nucleated RBC % 0 PT 13.0 H INR 1.2 APTT 34.2 Puncture Site Right Radial ABG pH 7.40 ABG pCO2 45 ABG pO2 71 L ABG HCO3 28 H ABG O2 Saturation 95 ABG Base Excess 2 Carboxyhemoglobin FiO2 21 Sodium 143 Potassium 4.2 Chloride 106 Carbon Dioxide 27.9 Anion Gap 9 BUN 11 Creatinine 1.2 Estim Creat Clear Calc Not Performed. eGFR > 60 BUN/Creatinine Ratio 9 L Glucose [address] Glu mg/dL 123 Hemoglobin A1c 5.9 Calculated Osmolality 284 Lactic Acid 1.1 Calcium 8.8 Corrected Calcium 8.8 Magnesium 1.6 Total Bilirubin 0.5 AST 29 ALT 26 Alkaline Phosphatase 185 H Ammonia 37 H Troponin I 0.561 H* B-Natriuretic Peptide < 20 Total Protein 6.6 Albumin 4.2 Globulin 2.4 Albumin/Globulin Ratio 1.8 Triglycerides 126 Cholesterol 93 L LDL Cholesterol, Calc 35 HDL Cholesterol 33 L Cholesterol/HDL Ratio 2.8 L Vitamin B12 Folate Free T4 1.41 Ur Collection Type Catheter Urine Color Yellow Urine Clarity Clear Urine pH 6.5 Ur Specific [place] 1.020 Urine Protein Negative Urine Glucose (UA) Negative Urine Ketones Negative Urine Blood Negative Urine Nitrite Negative Urine Bilirubin Negative Urine Urobilinogen (Auto) Negative Ur Leukocyte Esterase Negative Urine RBC 6 H Urine WBC 15 H Ur Squamous Epith Cells 0 Urine Bacteria None Urine Opiates Screen Urine Fentanyl Screen Ur Barbiturates Screen U Amphetamin/Meth Scrn U Benzodiazepines Scrn U Cocaine Metab Screen U Marijuana (THC) Screen Ethyl Alcohol < 3.0 Influenza A (Rapid) Influenza B (Rapid) 06/22/25 06/22/25 06/22/25 08:43 09:23 20:54 WBC RBC Hgb Hct MCV MCH MCHC RDW Std Deviation Plt Count Neut % (Auto) Lymph % (Auto) [place] % (Auto) Eos % (Auto) Baso % (Auto) Neut # (Auto) Lymph # (Auto) Ramsey # (Auto) Eos # (Auto) Baso # (Auto) Immature Gran # (Auto) Absolute Nucleated RBC Immature Gran % Nucleated RBC % PT INR APTT Puncture Site ABG pH ABG pCO2 ABG pO2 ABG HCO3 ABG O2 Saturation ABG Base Excess Carboxyhemoglobin 1.9 H FiO2 Sodium Potassium Chloride Carbon Dioxide Anion Gap BUN Creatinine Estim Creat Clear Calc eGFR BUN/Creatinine Ratio Glucose Estimated Ave Glu mg/dL Hemoglobin A1c Calculated Osmolality Lactic Acid Calcium Corrected Calcium Magnesium Total Bilirubin AST ALT Alkaline Phosphatase Ammonia Troponin I 0.494 H* B-Natriuretic Peptide Total Protein Albumin Globulin Albumin/Globulin Ratio Triglycerides Cholesterol LDL Cholesterol, Calc HDL Cholesterol Cholesterol/HDL Ratio Vitamin B12 655 Folate > 24.00 Free T4 Ur Collection Type Urine Color Urine Clarity Urine pH Ur Specific [place] Urine Protein Urine Glucose (UA) Urine Ketones Urine Blood Urine Nitrite Urine Bilirubin Urine Urobilinogen (Auto) Ur Leukocyte Esterase Urine RBC Urine WBC Ur Squamous Epith Cells Urine Bacteria Urine Opiates Screen Negative Urine Fentanyl Screen Negative Ur Barbiturates Screen Negative U Amphetamin/Meth Scrn Negative U Benzodiazepines Scrn Negative U Cocaine Metab Screen Negative U Marijuana (THC) Screen Negative Ethyl Alcohol Influenza A (Rapid) Negative Influenza B (Rapid) Negative ABG Interpretation ABG results: 06/22/25 05:06 ABG pH 7.40 ABG pCO2 45 ABG pO2 71 L ABG HCO3 28 H ABG O2 Saturation 95 ABG Base Excess 2 Quality Measures Quality Measures none Assessment & Plan Assessment Current Active Medications: Generic Name Dose Route Start Last Admin Trade Name Freq PRN Reason Stop Dose Admin Acetaminophen 650 mg 06/22/25 08:25 Acetaminophen 325 Mg Tablet PO 07/22/25 08:24 Q6H PRN Pain (1-3) & Fever >100.4 Amiodarone HCl 200 mg 06/22/25 09:00 06/22/25 09:46 Amiodarone Hcl 200 Mg Tablet PO 07/22/25 08:59 200 mg QDAY TUAN Administration Aspirin 81 mg 06/23/25 09:00 Aspirin Ec 81 Mg Tabec PO 07/23/25 08:59 QDAY TUAN Atorvastatin Calcium 40 mg 06/22/25 21:00 06/22/25 22:36 Atorvastatin Calcium 20 Mg Tablet PO 07/22/25 20:59 40 mg HS TUAN Administration Ondansetron HCl 4 mg 06/22/25 04:17 06/22/25 09:44 Ondansetron Inj 2 Mg/Ml Inj 2 Ml IVP 07/22/25 04:16 4 mg Q4HR PRN Administration NAUSEA OR VOMITING Pantoprazole Sodium 40 mg 06/22/25 09:00 06/22/25 09:44 Pantoprazole Inj 40 Mg Vial IVP 07/22/25 08:59 40 mg QDAY TUAN Administration Rivaroxaban 20 mg 06/22/25 19:00 06/22/25 20:24 Rivaroxaban 10 Mg Tablet PO 07/13/25 18:59 20 mg WSUPPER TUAN Administration Sennosides 1 tab 06/22/25 09:00 06/22/25 09:46 Senna Tablet PO 07/22/25 08:59 1 tab QDAY TUAN Administration Protocol Plan Patient is a 50 year old male with past medical history of Hypertension, Hyperlipdemia, Diabetes Mellitus type 2 on metformin and Ozemic, History of bilateral recurrent DVTs, history of PE s/p IVC filter on Xarelto, Factor V Leiden mutation on Xarelto, HFpEF 55-60% (05/11/2025), Diastolic Dysfunction, CAD, Hypothyroidism, history of gout, restless leg syndrome , AYLEEN on Cpap, and BPH who was admitted for with a chief complain of syncope and altered mental status. #Syncope #Altered Metabolic Encephalopthy, improved, likely multi-factorial #Stroke rule out, ruled out Patient presented with chief complain of dizziness and loss of consciouness while sitting down, upon arrival in the emergency room, concern for stroke as NIHSS of 34-->repeat with tele neuro 28. Given risk factors of diabetes mellitus, hypertension and history of factor V mutation, concern for stroke. Given history of AYLEEN on Cpap with poor fitting mask, maybe secondary to AYLEEN syncope event vs use of codeine vs less likely secondary to stroke as MRI negative vs ammonia Vs Gapapentin recently increased, re-evaluate pain level & taking ropinirole -->revaluate medication as increase in Gabapentin & rapinirole which can cause sudden episode of sleep w/ codeine as well. CT head (06/22/2025): negative. Head/Neck CTA (06/22/2025): No signifiicant neck arterial stenosis. No LVO. MRI negative fo racute stroke. Cerebral white matter changes, likely age related. Ammonia 37 A1c (06/22/2025) 5.9 Lipid Panel: Triglycerides 126, Cholesterol 93 L, LDL 35, HDL 33 ASCVD: 4.8% Moderate high intensity statins Plan -Resume Xareleto given history of DVTs/Factor V mutation -Aspirin 81 mg and Atorvastatin 40 mg HS -TSH AM Draw -EEG ordered -Please consider, Orthostatic Vitals -Re-evaluate Gabapentin, Ropinorle, and Codeine use -Head of bed at 30 degree -Consider resuming cpap at night -PT and speech ordered #AYLEEN #Erythrocytosis #Atrial Fibrillation #CHF HFpEF 55- #HLD #HTN #Elevated Troponin, likely type II demand ischemia #Factor V Leiden #Recurrent DVTS and history of PE s/p IVC Filter on Xarelto #Diabetes Mellitus Type 2 non insulin depdent #Neuropathy on Gapapentin #BPH - The patient's plan was discussed with attending Dr. Slim Moreau MD PGY2 Internal Medicine Attending Provider Attestation/Addendum I have seen and examined the patient at the bedside and I agreed with resident's findings, assessment and plan of care. Altered mental status without any witnessed convulsion, with DD: Unwitnessed sz with prolonged post ictal state, hypoxia with underlying AYLEEN and metabolci encephalopathy, unlikely stroke as the workup ruled it out. FU with rest of the labs, hypercoag workup to look for the secondary causes for DVT and PE to have the evidence to support the continuation of Xarelto and EEG. MRI brain: showed nonspecific white matter changes consistent with chronic small vessel ischemia and not demyelination. PT evaluation Ok to resume Ropinirole, as the dose that he is taking could unlikely cause the presenting symptom. Noted that he is going to get a new CPAP device and accessories soon.
--- NOTE | 2025-06-22 20:00 | PD.RESCONSUL ---
HPI Data of Consult Requesting Physician: Chace Whatley MD Admitting Provider: Chace Whatley MD Attending Provider: Chace Whatley MD Primary Care Provider: Physician No Primary/Family Consult Narrative cc:: cc: Chace Whatley MD Exam Vital Signs Temp Pulse Resp BP Pulse Ox O2 Del Method O2 Flow Rate 98.6 F 75 19 106/77 98 Room Air 2 06/22/25 18:23 06/22/25 18:23 06/22/25 18:23 06/22/25 18:23 06/22/25 18:23 06/22/25 18:23 06/22/25 15:59 Results Labs 06/22/25 04:20 06/22/25 04:20 Labs: Short CBC 06/22/25 Range/Units 04:20 WBC 7.3 (3.8-10.6) Thou/mm3 Hgb 17.5 H (13.5-16.0) g/dL Hct 51.7 (41.0-53.0) % Plt Count 244 (140-440) Thou/mm3 BMP 06/22/25 04:20 Sodium 143 Potassium 4.2 Chloride 106 Carbon Dioxide 27.9 BUN 11 Creatinine 1.2 Glucose 96 Calcium 8.8 Cardiac Enzymes 06/22/25 06/22/25 Range/Units 04:20 09:23 Troponin I 0.561 H* 0.494 H* (0.0-0.045) ng/mL Liver Function 06/22/25 Range/Units 04:20 Total Bilirubin 0.5 (0.3-1.2) mg/dL AST 29 (0-34) U/L ALT 26 (10-49) U/L Alkaline Phosphatase 185 H (46-116) U/L Albumin 4.2 (3.5-5.0) gm/dL Urine 06/22/25 Range/Units 05:06 Urine Color Yellow (Lt Yel-Yel) Urine Clarity Clear (Clear/Hazy) Urine pH 6.5 (5.0-7.0) Ur Specific [place] 1.020 (1.001-1.035) Urine Protein Negative (Neg - Trace) Urine Glucose (UA) Negative (Negative) ABG Interpretation ABG results: 06/22/25 05:06 ABG pH 7.40 ABG pCO2 45 ABG pO2 71 L ABG HCO3 28 H ABG O2 Saturation 95 ABG Base Excess 2 Quality Measures Quality Measures none Medications Home Medications and Allergies Home Medications ?Medication ?Instructions ?Recorded ?Confirmed ?Type lisinopril 20 mg tablet 20 mg PO BID #0 tabs 08/22/17 05/09/25 History metformin 500 mg tablet 500 mg PO HS 06/28/21 05/09/25 History ropinirole 0.25 mg tablet 0.25 mg PO HS 10/03/21 05/09/25 History amiodarone 200 mg tablet 200 mg PO QDAY 04/05/22 05/09/25 History atorvastatin 40 mg tablet 40 mg PO HS 09/04/22 05/09/25 History meclizine 25 mg tablet 25 mg PO BID PRN Dizziness 09/04/22 05/09/25 History duloxetine 30 mg capsule,delayed 30 mg PO QDAY 10/24/23 05/09/25 History release finasteride 5 mg tablet 5 mg PO QDAY 10/24/23 05/09/25 History semaglutide 1 mg/dose (4 mg/3 mL) 1.75 mg subcut QWEEK 10/24/23 05/09/25 History subcutaneous pen injector (Ozempic) allopurinol 100 mg tablet 200 mg PO DAILY 01/07/25 05/09/25 History loratadine 10 mg tablet (Claritin) 10 mg PO QDAY PRN allergic symptoms 01/07/25 05/09/25 History multivitamin (Daily Multi-Vitamin 1 tab PO QAM 01/07/25 05/09/25 History tablet) ondansetron HCl 4 mg tablet 4 mg PO TID PRN nausea and vomiting 01/07/25 05/09/25 History Allergies Allergy/AdvReac Type Severity Reaction Status Date / Time No Known Allergies Allergy Verified 05/25/25 20:44 Visit Medications Acetaminophen (Acetaminophen 325 Mg Tablet) 650 mg PO Q6H PRN PRN Reason: Pain (1-3) & Fever >100.4 Stop: 07/22/25 08:24 Amiodarone HCl (Amiodarone Hcl 200 Mg Tablet) 200 mg PO QDAY [facility] Stop: 07/22/25 08:59 Last Admin: 06/22/25 09:46 Dose: 200 mg Aspirin (Aspirin Ec 81 Mg Tabec) 81 mg PO QDAY [facility] Stop: 07/23/25 08:59 Atorvastatin Calcium (Atorvastatin Calcium 20 Mg Tablet) 40 mg PO HS [facility] Stop: 07/22/25 20:59 Ondansetron HCl (Ondansetron Inj 2 Mg/Ml Inj 2 Ml) 4 mg IVP Q4HR PRN PRN Reason: NAUSEA OR VOMITING Stop: 07/22/25 04:16 Last Admin: 06/22/25 09:44 Dose: 4 mg Pantoprazole Sodium (Pantoprazole Inj 40 Mg Vial) 40 mg IVP QDAY TUAN Stop: 07/22/25 08:59 Last Admin: 06/22/25 09:44 Dose: 40 mg Rivaroxaban (Rivaroxaban 10 Mg Tablet) 20 mg PO WSUPPER [facility] Stop: 07/13/25 18:59 Last Admin: 06/22/25 20:24 Dose: 20 mg Sennosides (Senna Tablet) 1 tab PO QDAY TUAN; Protocol Stop: 07/22/25 08:59 Last Admin: 06/22/25 09:46 Dose: 1 tab Discontinued Medications Magnesium Sulfate (Magnesium Sulfate Ivpb) 4 gm in 50 mls @ 12.5 mls/hr IV X1 ONE Stop: 06/22/25 12:42 Last Infusion: 06/22/25 15:42 Dose: Infused Labetalol HCl (Labetalol Inj 5 Mg/Ml Vial 20 Ml) 10 mg IVP Q15M PRN PRN Reason: HYPER
--- NOTE | 2025-06-22 20:10 | PC.NURSE ---
called pharmacy, will bring xarelto over. med not available in er
[2025-06-22] MEDS: RIVAROXABAN 10 MG TABLET 20 MG PO (20:24)
[2025-06-22 21:43] LABS: Influenza A Ag Negative; Influenza B Ag Negative
[2025-06-22] MEDS: ATORVASTATIN CALCIUM 20 MG TABLET 40 MG PO (22:36)
[2025-06-23] VITALS (9 sets, daily range): BP systolic 101–125; BP diastolic 71–90; PULSE 61–88; RESP 17–20; TEMP 36.3–36.8; O2SAT 93–99
--- NOTE | 2025-06-23 01:17 | PC.NURSE ---
Dr. Crisostomo notified regarding patient complaint of neck pain from when EMS picked him up and that he forget to tell the staff in the ER. Patient states that his pain is a 10/10 level yet does not want any pain meds for it. No new orders. Will continue to monitor.
--- NOTE | 2025-06-23 03:35 | PC.NURSE ---
Pt received to room 353 via w/c with all belongings, assisted in bed and oriented to room. Call light within easily reach, denies any problem at this time.
--- NOTE | 2025-06-23 07:38 | PD.RESPRO ---
Documentation for date of: 06/23/25 Exam Vital Signs Temp Pulse Resp BP Pulse Ox O2 Del Method O2 Flow Rate 98.3 F 69 20 125/90 H 99 Nasal Cannula 2 06/23/25 04:00 06/23/25 04:00 06/23/25 04:00 06/23/25 04:00 06/23/25 04:00 06/23/25 04:00 06/22/25 23:19 Objective Labs 06/22/25 04:20 06/22/25 04:20 Labs: Laboratory Results - last 24 hr 06/22/25 06/22/25 06/22/25 04:20 05:06 06:[address] Glu mg/dL 123 Hemoglobin A1c 5.9 Troponin I Triglycerides 126 Cholesterol 93 L LDL Cholesterol, Calc 35 HDL Cholesterol 33 L Cholesterol/HDL Ratio 2.8 L Vitamin B12 Folate Free T4 1.41 Ur Collection Type Catheter Urine Color Yellow Urine Clarity Clear Urine pH 6.5 Ur Specific [place] 1.020 Urine Protein Negative Urine Glucose (UA) Negative Urine Ketones Negative Urine Blood Negative Urine Nitrite Negative Urine Bilirubin Negative Urine Urobilinogen (Auto) Negative Ur Leukocyte Esterase Negative Urine RBC 6 H Urine WBC 15 H Ur Squamous Epith Cells 0 Urine Bacteria None Urine Opiates Screen Urine Fentanyl Screen Ur Barbiturates Screen U Amphetamin/Meth Scrn U Benzodiazepines Scrn U Cocaine Metab Screen U Marijuana (THC) Screen Influenza A (Rapid) Influenza B (Rapid) 06/22/25 06/22/25 06/22/25 08:43 09:23 20:[address] Glu mg/dL Hemoglobin A1c Troponin I 0.494 H* Triglycerides Cholesterol LDL Cholesterol, Calc HDL Cholesterol Cholesterol/HDL Ratio Vitamin B12 655 Folate > 24.00 Free T4 Ur Collection Type Urine Color Urine Clarity Urine pH Ur Specific [place] Urine Protein Urine Glucose (UA) Urine Ketones Urine Blood Urine Nitrite Urine Bilirubin Urine Urobilinogen (Auto) Ur Leukocyte Esterase Urine RBC Urine WBC Ur Squamous Epith Cells Urine Bacteria Urine Opiates Screen Negative Urine Fentanyl Screen Negative Ur Barbiturates Screen Negative U Amphetamin/Meth Scrn Negative U Benzodiazepines Scrn Negative U Cocaine Metab Screen Negative U Marijuana (THC) Screen Negative Influenza A (Rapid) Negative Influenza B (Rapid) Negative ABG Interpretation ABG results: 06/22/25 05:06 ABG pH 7.40 ABG pCO2 45 ABG pO2 71 L ABG HCO3 28 H ABG O2 Saturation 95 ABG Base Excess 2 Quality Measures Quality Measures none Assessment & Plan Assessment Current Active Medications: Generic Name Dose Route Start Last Admin Trade Name Freq PRN Reason Stop Dose Admin Acetaminophen 650 mg 06/22/25 08:25 Acetaminophen 325 Mg Tablet PO 07/22/25 08:24 Q6H PRN Pain (1-3) & Fever >100.4 Amiodarone HCl 200 mg 06/22/25 09:00 06/22/25 09:46 Amiodarone Hcl 200 Mg Tablet PO 07/22/25 08:59 200 mg QDAY TUAN Administration Aspirin 81 mg 06/23/25 09:00 Aspirin Ec 81 Mg Tabec PO 07/23/25 08:59 QDAY TUAN Atorvastatin Calcium 40 mg 06/22/25 21:00 06/22/25 22:36 Atorvastatin Calcium 20 Mg Tablet PO 07/22/25 20:59 40 mg HS TUAN Administration Ondansetron HCl 4 mg 06/22/25 04:17 06/22/25 09:44 Ondansetron Inj 2 Mg/Ml Inj 2 Ml IVP 07/22/25 04:16 4 mg Q4HR PRN Administration NAUSEA OR VOMITING Pantoprazole Sodium 40 mg 06/22/25 09:00 06/22/25 09:44 Pantoprazole Inj 40 Mg Vial IVP 07/22/25 08:59 40 mg QDAY TUAN Administration Rivaroxaban 20 mg 06/22/25 19:00 06/22/25 20:24 Rivaroxaban 10 Mg Tablet PO 07/13/25 18:59 20 mg WSUPPER TUAN Administration Sennosides 1 tab 06/22/25 09:00 06/22/25 09:46 Senna Tablet PO 07/22/25 08:59 1 tab QDAY TUAN Administration Protocol
[2025-06-23] MEDS: AMIODARONE HCL 200 MG TABLET PO (09:09)
[2025-06-23] MEDS: ASPIRIN EC 81 MG TABEC PO (09:10)
[2025-06-23 09:38] LABS: Basophils # (Auto) 0.0 Thou/mm3 (0.0-0.2); Basophils % (Auto) 0 % (0-2.5); Eosinophils # (Auto) 0.1 Thou/mm3 (0.0-0.5); Eosinophils % (Auto) 1 % (0-10); Hematocrit 52.2 % (41.0-53.0); Hemoglobin 17.3 g/dL (13.5-16.0); Immature Granulocytes Auto 0.02 Thou/mm3 (0.00-0.00); Lymphocytes # (Auto) 1.6 Thou/mm3 (1.0-4.8); Lymphocytes % (Auto) 22 % (10-50); Mean Corpuscular HGB Conc 33.1 g/dl (31.0-37.0); Mean Corpuscular Hemoglobin 31.0 pg (25.0-35.0); Mean Corpuscular Volume 94 fL (80-100); Monocytes # (Auto) 0.7 Thou/mm3 (0.0-0.8); Monocytes % (Auto) 10 % (0-12); Neutrophils # (Auto) 4.9 Thou/mm3 (1.8-7.7); Neutrophils % (Auto) 66 % (37-80); Nucleated Red Blood Cell # 0.00 Thou/mm3 (0.00-0.00); Nucleated Red Blood Cell % 0 /100 WBC (0); Platelet Count 226 Thou/mm3 (140-440); RDW Standard Deviation 44.4 fL (35.1-43.9); Red Blood Count 5.58 Miln/mm3 (4.50-5.90); White Blood Count 7.4 Thou/mm3 (3.8-10.6)
[2025-06-23 10:04] LABS: Alanine Aminotransferase 24 U/L (10-49); Albumin, Serum 4.0 gm/dL (3.5-5.0); Albumin/Globulin Ratio 1.7 (1.2-2.2); Alkaline Phosphatase 181 U/L (46-116); Anion Gap 9 (7-16); Aspartate Amino Transferase 23 U/L (0-34); BUN/Creatinine Ratio 6 Ratio (12-20); Bilirubin,Total 0.5 mg/dL (0.3-1.2); Blood Urea Nitrogen 7 mg/dL (9-23); Calcium 8.9 mg/dL (8.3-10.6); Calcium (Corrected) 8.9 mg/dL (8.5-10.1); Carbon Dioxide 27.1 mMol/L (20.0-31.0); Chloride 104 mMol/L (98-107); Creatinine (Component) 1.2 mg/dL (0.6-1.3); Estimated Creatinine Clearance 89.7 mL/min (>60); Globulin 2.4 gm/dL (2.3-3.5); Glucose 91 mg/dL (74-106); Magnesium 1.6 mg/dL (1.6-2.6); Osmolality,Calculated 277 (275-295); Phosphorous 3.3 mg/dL (2.4-5.1); Potassium 3.9 mMol/L (3.4-5.1); Sodium 140 mMol/L (136-145); Thyroid Stimulating Hormone 1.98 uIU/mL (0.55-4.78); Total Protein 6.4 gm/dL (5.7-8.2); eGFR > 60 See Note
--- NOTE | 2025-06-23 10:27 | PC.PT ---
PT eval only. Patient was xI with bed mobility, transfers, and ambulation. Patient is safe to ambulate to the bathroom and in the halls with a single point cane and 1 staff assist. RN made aware.
[2025-06-23 10:31] LABS: Syphilis Nonreactive (Nonreactive)
--- NOTE | 2025-06-23 10:36 | CHAP ---
Patient was visited by a Spiritual Care Volunteer on 06/23/2025 between 0900 and 0945 and received comfort, encouragement and/or prayer.
--- NOTE | 2025-06-23 11:57 | PC.SS ---
Patient is alert/oriented. Patient was able to verify demographics. Patient resides with his roommate, Diana. Diana, # [phone]. Patient is independent with ADL's. Patient was admitted for CVA workup. Patient worked with PT and they recommended HH services. Patient states he's had HH before and is fine with [facility]. Patient has a walker and a cane at home. He uses a CPAP machine at home. No 02. Patient states his major case detective, Jerry Peterson from the [facility] provides transportation assistance. Patient receives Social Security disability income. PCP: Akila Diaz NP at [facility]. Last appt. was in April. Music Teacher: Dr. Ortega. Pharmacy: [facility]. D/c plan is to return home. Alt medical decision maker: Ethan Chavira, . transportation: [facility] d/c plan:
--- NOTE | 2025-06-23 13:20 | ESDS_ITS ---
<Statement entered by Chace Whatley MD - 07/06/25 07:42> I reviewed above note and agree with findings and plans. I have also personally examined the patient with medicine team and went over assessment and plan with medical team including sourcing internship and resident physician. <Statement entered by Balbina Chase MD - 06/24/25 05:03> Patient was seen and examined by me personally. I have reviewed the below documentation by the team resident and agree with its findings. Discharge plan was discussed with the attending, Dr. Whatley. 50-year-old male with past medical history as below, admitted to [facility] for acute encephalopathy secondary to polypharmacy, mentation improved remarkably overnight, MRI negative for any acute infarct, neurology cleared the patient for discharge, Xarelto resumed per neurology recommendations. Further plan is to discharge patient home, patient to hold duloxetine, CVA ruled out, B12 deficiency/folate deficiency/syphilis ruled out, patient's likely underlying cause of altered mentation polypharmacy. Patient is stable for discharge, responded well to hospital treatment. Balbina Chase MD Internal Medicine, PGY-2 Planned Discharge Date 06/23/25 DS: Providers Provider Date of admission: 06/22/25 08:26 Primary care physician: Physician No Primary/Family Admitting Provider: Chace Whatley MD Attending Provider on Admission: Chace Whatley MD Consults: 06/22/25 04:17 Consult to Neurology / Tele-Neurology Routine Comment: Consulting Provider: [facility] 06/22/25 08:44 Referral Physical Therapy Stat Comment: Physician Instructions: Referral Speech Therapy Stat Comment: 06/22/25 08:53 Consult to Neurology / Tele-Neurology Stat Comment: CVA Workup Consulting Provider: Nicholas Smalls 06/22/25 23:12 Referral Jennifer Routine Comment: Referral Physical Therapy Routine Comment: Physician Instructions: Referral Respiratory Therapy Routine Comment: Attending Provider on DC: Dr. Chace Whatley MD Discharging Provider: Dr. Chace Whatley MD Anticipated date of discharge: 06/23/25 DS: Diagnosis Problem List Completed Was Problem List Reviewed/Reconciled?: Yes Hospital Course Hospital Course Hospital course: Summary Patient is a 50 year old male with past medical history of Hypertension, H yperlipdemia, Diabetes Mellitus type 2 on metformin and Ozempic, History of bilateral recurrent DVTs, history of PE s/p IVC filter on Xarelto, Factor V Leiden mutation on Xarelto, HFpEF 55-60% (05/11/2025), Diastolic Dysfunction, CAD, Hypothyroidism, history of gout, restless leg syndrome , AYLEEN on Cpap, and BPH was brought by EMS for altered mental status admitted for management of altered mental status and CVA workup. In the ED, patient vital state were stable. UA was negative, U tox negative. CT head was negative for acute hemorrhage, chest x-ray showed moderate vascular congestion. Head/neck CTA showed no significant neck arterial stenosis, abdominal CT showed no urinary obstruction, negative for prostatomegaly. EKG sinus rhythm. Patient was given ondansetron, Protonix, amiodarone, magnesium sulfate. CVA workup was negative as MRI showed no evidence of the same. Patient mentation improved significantly. Per neurology recommendation was started on Xarelto given history of DVT/factor V mutation. Throughout the hospital course patient other problems were managed and her condition improved remarkably with progression of hospital course. Further plan to discharge the patient home since he is stable and responded well to hospital treatment. Discharge recommendation: -Hold Duloxetine as it may cause your confusion follow up with PCP before resuming. -Continue all other medications as prescribed. -Follow up with PCP in 1-2 weeks. -Continue to follow-up with vascular surgery Dr. John -Return to ED if symptoms worsen. If you don't have a PCP, you can make an appointment at the [facility]: [address] [place] [address] Hospital Diagnoses: #Acute encephalopathy likely 2/2 due polypharmacy #Altered Mental status, unspecified # CVA work-up # Paroxysmal Atrial fibrillation # Factor V Leiden mutation # DVT s/p IVC filter # History of thromboembolic disease/PE on anticoagulation # Heart failure reduced ejection fraction( [id number]) # elevated troponin # CAD s/p stent # Non-insulin dependent- Diabetes mellitus type 2 # Diabetic neuropathy # Primary Hypertension # Hyperlipidemia #Benign prostatic hyperplasia Patient seen and assessed under supervision of attending physician Dr. Whatley and discuss with senior resident Dr. Chase PGY-2 Salud Landers MD PGY-1, Internal Medicine Time spent discussing smoking cessation with patient: 3 to 10 minutes Time Spent with Patient Time attestation: Total time spent providing and/or coordinating discharge services: Time spent: Greater than 30 minutes Exam Vital Signs Temp Pulse Resp BP Pulse Ox O2 Del Method O2 Flow Rate 97.6 F 81 17 101/71 98 Nasal Cannula 1 06/23/25 08:00 06/23/25 12:20 06/23/25 08:00 06/23/25 09:09 06/23/25 08:00 06/23/25 08:00 06/23/25 08:00 Narrative Exam Physical Exam General: Awake and in no acute distress. Conversational and non-toxic appearing. HEENT: Normocephalic, atraumatic,moist mucus membrane . Heart: Regular rate and rhythm, normal S1 and S2, no murmurs. Lungs: Decreased breath sounds at bases bilaterally. Clear to auscultation with no wheezing or crackles. Abdomen: Soft, nondistended, nontender, positive bowel sounds. ?No guarding or rebound tenderness. Neurologic: Alert and oriented x3, no gross neurological deficit, and patient able to move all 4 extremities. Cranial II- XII, Motor: Strength 5/5 in all extremities proximally and distally. No pronactor drift. Extremities: No edema. Skin: No rash or ecchymoses Discharge Plan Plan Patient Disposition: HOME (Self Care) Patient condition on transfer: Stable Care Plan Goals: -Hold Duloxetine as it may cause your confusion follow up with PCP before resuming. -Continue all other medications as prescribed. -Follow up with PCP in 1-2 weeks. -Return to ED if symptoms worsen. Prescriptions/Referrals Prescriptions/Med Rec: Continued lisinopril 20 MG tablet 20 mg PO BID Qty: 0 Patient Comments: PER GHAZALA MORRIS, ONLY TAKES IF SBP >125 metformin 500 mg tablet 500 mg PO HS Patient Comments: TAKE 1 TABLET BY MOUTH EVERY DAY AT BEDTIME FOR DIABETES ropinirole 0.25 mg Tablet 0.25 mg PO HS Patient Comments: 1-3 HRS PRIOR TO BEDTIME amiodarone 200 mg Tablet 200 mg PO QDAY atorvastatin 40 mg tablet 40 mg PO HS Patient Comments: TAKE 1 TABLET BY MOUTH AT BEDTIME FOR CHOLESTEROL benzonatate 200 mg capsule 200 mg PO 3XD PRN (Reason: cough) Patient Comments: TAKE 1 CAPSULE BY MOUTH THREE TIMES A DAY NEEDED FOR COUGH gabapentin 100 mg capsule 100 mg PO 3XD Patient Comments: TAKE 1 CAPSULE BY MOUTH THREE TIMES A DAY FOR 30 DAYS furosemide 20 mg tablet 20 mg PO DAILY Patient Comments: TAKE 1 TABLET BY MOUTH EVERY DAY IN THE MORNING FOR EDEMA ProAir RespiClick 90 mcg/actuation aerosol powdr breath activated 90 mcg INHALATION Q4H PRN (Reason: shortness of breath or wheezing) Patient Comments: INHALE 1-2 PUFF EVERY 4 HOURS INHALATION NEEDED finasteride 5 mg tablet 5 mg PO QDAY Patient Comments: TAKE 1 TABLET BY MOUTH EVERY DAY allopurinol 100 mg tablet 200 mg PO DAILY Patient Comments: TAKE 2 TABS BY MOUTH 1 TIME A DAY FOR GOUT multivitamin [Daily Multi-Vitamin] Tablet 1 tab PO QAM loratadine [Claritin] 10 mg tablet 10 mg PO QDAY PRN (Reason: allergic symptoms) ondansetron HCl 4 mg tablet 4 mg PO TID PRN (Reason: nausea and vomiting) Xarelto 20 mg tablet 20 mg PO QDAY Qty: 30 3RF Rx Instructions: must administer with evening meal Held duloxetine 30 mg capsule,delayed release(DR/EC) 30 mg PO QDAY Hold Instructions: Resume on 06/30/25. follow up with pcp before resuming Referrals: No Primary/Family,Physician [Primary Care Provider] - Patient/Caregiver Discharge Instructions Discharge Activity: activity as tolerated Education Materials: ED Confusion, ED Altered Level Consciousness Ch Print Language: Turkish Stand Alone Forms: [employer] Award Info., Patient Portal Info Letter Discharge Order Discharge Orders: Discharge (Routine); Ordered 06/23/25 Ordered By: Francis Delong Quality Discharge Quality Measures VTE prophylaxis
--- NOTE | 2025-06-23 15:00 | ESPR_ITS ---
Documentation for date of: 06/23/25 Subjective Subjective Interval history: Patient is a 50 year old male with past medical history of Hypertension, Hyperlipdemia, Diabetes Mellitus type 2 on metformin and Ozemic, History of bilateral recurrent DVTs, history of PE s/p IVC filter on Xarelto, Factor V Leiden mutation on Xarelto, HFpEF 55-60% (05/11/2025), Diastolic Dysfunction, CAD, Hypothyroidism, history of gout, restless leg syndrome , AYLEEN on Cpap, and BPH who presented to the emergency via EMS with a chief complain of non- repsonsive . Patient stated he had a loss of at approximately 18:00 on 06/21/2025. 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 He denied seizure like activity. Patient has also been complaining of dizziness. Patient stated continues to use Cpap at home but mask will be replaced as it does not fit well. Patient stated continues to wake up tired despite sufficient hours of sleep. 06/23/2025: Patient examined at bedside this evening. Patient denied any overnight events. No changes to home medication. Please follow up with neurology within two weeks of discharge. Exam Vital Signs Temp Pulse Resp BP Pulse Ox O2 Del Method O2 Flow Rate 97.3 F 81 18 116/85 H 96 Room Air 1 06/23/25 12:00 06/23/25 12:20 06/23/25 12:00 06/23/25 12:06/23/25 12:00 06/23/25 12:06/23/25 08:00 Narrative Exam General Appearance: Alert & Oriented X3, well-nourished male who is lying in bed in no acute distress HEENT: Skull symmetrical and atraumatic. Conjunctivae pink and moist. Pupils equal, round, reactive to light and accommodation (PERRL). External ear without lesion or discharge. Straight, nares patient, mucosa appears dry, no discharge. Cardio: Normal Rate and Rhythm with S1 and S2 heart sounds. No murmurs or extra heart sounds auscultated. No bruits on carotid auscultation. No peripheral edema or cyanosis. Lungs: Symmetric with good expansion. Chest and back non-tender. Breath sounds vesicular without crackles, wheezing or rhonchi Abdomen: Non-tender, Non-distended, Normal Reactive Bowel Sounds Neuro: Alert, cooperative, oriented to person, place, and time. Speech clear. CN grossly intact. Upper motor strength 5/5 and Lower motor strength 5/5. Sensation intact. Objective Labs 06/23/25 08:47 06/23/25 08:47 Labs: Laboratory Results - last 24 hr 06/22/25 06/23/25 20:54 08:47 WBC 7.4 RBC 5.58 Hgb 17.3 H Hct 52.2 MCV 94 MCH 31.0 MCHC 33.1 RDW Std Deviation 44.4 H Plt Count 226 Neut % (Auto) 66 Lymph % (Auto) 22 [place] % (Auto) 10 Eos % (Auto) 1 Baso % (Auto) 0 Neut # (Auto) 4.9 Lymph # (Auto) 1.6 [place] # (Auto) 0.7 Eos # (Auto) 0.1 Baso # (Auto) 0.0 Immature Gran # (Auto) 0.02 H Absolute Nucleated RBC 0.00 Immature Gran % 0 Nucleated RBC % 0 Sodium 140 Potassium 3.9 Chloride 104 Carbon Dioxide 27.1 Anion Gap 9 BUN 7 L Creatinine 1.2 Estim Creat Clear Calc 89.7 eGFR > 60 BUN/Creatinine Ratio 6 L Glucose 91 Calculated Osmolality 277 Calcium 8.9 Corrected Calcium 8.9 Phosphorus 3.3 Magnesium 1.6 Total Bilirubin 0.5 AST 23 ALT 24 Alkaline Phosphatase 181 H Total Protein 6.4 Albumin 4.0 Globulin 2.4 Albumin/Globulin Ratio 1.7 TSH 1.98 Syphilis Serology Nonreactive Influenza A (Rapid) Negative Influenza B (Rapid) Negative ABG Interpretation ABG results: 06/22/25 05:06 ABG pH 7.40 ABG pCO2 45 ABG pO2 71 L ABG HCO3 28 H ABG O2 Saturation 95 ABG Base Excess 2 Quality Measures Quality Measures none Assessment & Plan Assessment Current Active Medications: Generic Name Dose Route Start Last Admin Trade Name Freq PRN Reason Stop Dose Admin Acetaminophen 650 mg 06/22/25 08:25 Acetaminophen 325 Mg Tablet PO 07/22/25 08:24 Q6H PRN Pain (1-3) & Fever >100.4 Amiodarone HCl 200 mg 06/22/25 09:00 06/23/25 09:09 Amiodarone Hcl 200 Mg Tablet PO 07/22/25 08:59 200 mg QDAY TUAN Administration Aspirin 81 mg 06/23/25 09:00 08/12/25 09:10 Aspirin Ec 81 Mg Tabec PO 07/23/25 08:59 81 mg QDAY TUAN Administration Atorvastatin Calcium 40 mg 06/22/25 21:00 06/22/25 22:36 Atorvastatin Calcium 20 Mg Tablet PO 07/22/25 20:59 40 mg HS TUAN Administration Ondansetron HCl 4 mg 06/22/25 04:17 06/22/25 09:44 Ondansetron Inj 2 Mg/Ml Inj 2 Ml IVP 07/22/25 04:16 4 mg Q4HR PRN Administration NAUSEA OR VOMITING Pantoprazole Sodium 40 mg 06/24/25 09:00 Pantoprazole 40 Mg Tablet PO 07/24/25 08:59 QDAY TUAN Protocol Rivaroxaban 20 mg 06/22/25 19:00 06/22/25 20:24 Rivaroxaban 10 Mg Tablet PO 07/13/25 18:59 20 mg WSUPPER TUAN Administration Ropinirole HCl 0.25 mg 06/23/25 21:00 Ropinirole Hcl 0.25 Mg Tablet PO 07/23/25 20:59 HS TUAN Sennosides 1 tab 06/22/25 09:00 06/23/25 09:09 Senna Tablet PO 07/22/25 08:59 1 tab QDAY TUAN Administration Protocol Plan Patient is a 50 year old male with past medical history of Hypertension, Hyperlipdemia, Diabetes Mellitus type 2 on metformin and Ozemic, History of bilateral recurrent DVTs, history of PE s/p IVC filter on Xarelto, Factor V Leiden mutation on Xarelto, HFpEF 55-60% (05/11/2025), Diastolic Dysfunction, CAD, Hypothyroidism, history of gout, restless leg syndrome , AYLEEN on Cpap, and BPH who was admitted for with a chief complain of syncope and altered mental status. #Syncope #Altered Metabolic Encephalopthy, improved, likely multi-factorial #Stroke rule out, ruled out Patient presented with chief complain of dizziness and loss of consciouness while sitting down, upon arrival in the emergency room, concern for stroke as NIHSS of 34-->repeat with tele neuro 28. Given risk factors of diabetes mellitus, hypertension and history of factor V mutation, concern for stroke. Given history of AYLEEN on Cpap with poor fitting mask, maybe secondary to AYLEEN syncope event vs use of codeine vs less likely secondary to stroke as MRI negative vs ammonia Vs Gapapentin recently increased, re-evaluate pain level & taking ropinirole -->revaluate medication as increase in Gabapentin & ropinirole which can cause sudden episode of sleep w/ codeine as well. CT head (06/22/2025): negative. Head/Neck CTA (06/22/2025): No signifiicant neck arterial stenosis. No LVO. MRI negative fo racute stroke. Cerebral white matter changes, likely age related. Ammonia 37 A1c (06/22/2025) 5.9 Lipid Panel: Triglycerides 126, Cholesterol 93 L, LDL 35, HDL 33 ASCVD: 4.8% Moderate high intensity statins Plan -Follow up with Dr. Smalls, neurology for EEG. -Resume Xareleto given history of DVTs/Factor V mutation -Aspirin 81 mg and Atorvastatin 40 mg HS -Please consider, Orthostatic Vitals -Re-evaluate Gabapentin and Codeine use -Continue Ropinirole -Head of bed at 30 degree -Consider resuming cpap at night -PT and speech ordered #AYLEEN #Erythrocytosis #Atrial Fibrillation #CHF HFpEF 55- #HLD #HTN #Elevated Troponin, likely type II demand ischemia #Factor V Leiden #Recurrent DVTS and history of PE s/p IVC Filter on Xarelto #Diabetes Mellitus Type 2 non insulin depdent #Neuropathy on Gapapentin #BPH - The patient's plan was discussed with attending Dr. Slim Moreau MD PGY2 Internal Medicine Attending Provider Attestation/Addendum I independently reviewed the patient's chart and I agreed with resident's findings, assessment and plan of care. Imp: Syncope/Metabolci encephalopathy/ Ruled out stroke Plan: continue Xarleto for recurrent DVT, ASA 81 mg, statin, CPAP usage after getting new device. FU with me in [facility] in 1 -2 weeks. EEG has not been done, will consider doing it as an outpatient.
== END 2025-06-23 16:13 | disposition home or self-care (01) | DRG 52 ==
LOC: SERX 07:54 → SERHOLD 08:55 → S2NX 21:08 → S3NX 06-23 03:21
PROVIDERS: Admitting Provider Internal Medicine; Emergency Provider Family Medicine; Visit Provider Internal Medicine
DX: G92.8 Other toxic encephalopathy (principal); D68.51 Activated protein C resistance; N40.0 Benign prostatic hyperplasia without lower urinary tract symptoms; G47.33 Obstructive sleep apnea (adult) (pediatric); I25.10 Atherosclerotic heart disease of native coronary artery without angina pectoris; I11.0 Hypertensive heart disease with heart failure; I50.32 Chronic diastolic (congestive) heart failure; R09.02 Hypoxemia; I48.0 Paroxysmal atrial fibrillation; E11.40 Type 2 diabetes mellitus with diabetic neuropathy, unspecified; E03.9 Hypothyroidism, unspecified; E78.5 Hyperlipidemia, unspecified; Z79.01 Long term (current) use of anticoagulants; Z86.711 Personal history of pulmonary embolism; Z95.828 Presence of other vascular implants and grafts; Z86.73 Personal history of transient ischemic attack (TIA), and cerebral infarction without residual deficits; Z79.899 Other long term (current) drug therapy; Z79.84 Long term (current) use of oral hypoglycemic drugs; Z86.718 Personal history of other venous thrombosis and embolism; Z99.81 Dependence on supplemental oxygen
CPT/HCPCS: 36415; 36600; 70450; 70496; 70498; 70551; 70553; 71045; 74176; 80053; 80061; 80307; 80320; 81001; 82140; 82375; 82607; 82746; 82803; 83036; 83605; 83735; 83880; 84100; 84439; 84443; 84484; 85025; 85610; 85730; 86780; 87040; 87081; 87086; 87502; 92610; 93005; 96365; 96366; 96374; 96375; 97161; 99285; A4649; A9577; J2405; J2470; J3475; Q9967; A9270; G0480

== ENCOUNTER 2025-07-18 06:45 | Emergency (ER) | payer MEDICAID, SELFPAY ==
[2025-07-18 06:48] VITALS: BP 145/90; PULSE 145; RESP 20; TEMP 36.7; O2SAT 94
[2025-07-18 06:54] VITALS: BMI 39.4
[2025-07-18 06:58] VITALS: PULSE 74; RESP 20; O2SAT 98; BMI 40.3
--- NOTE | 2025-07-18 07:10 | EKG_ITS ---
[facility] Test Date: 2025-07-18 Pat Name: DAVID RAJPUT Department: Room: - Gender: Male Order Entry Clerk: : 1975 Requested By: ED Temporary Provider Order Number: [id number] Reading MD: ED Temporary Provider Measurements Intervals [place] Rate: 72 P: 34 ND: 183 QRS: 43 QRSD: 93 T: -18 QT: 394 QTc: 434 Interpretive Statements SINUS RHYTHM INCOMPLETE RIGHT BUNDLE BRANCH BLOCK [90+ ms QRS DURATION, TERMINAL R IN V1/V2, 40+ ms S IN I/aVL/V4/V5/V6] NONSPECIFIC ST & T-WAVE ABNORMALITY Compared to ECG 06/22/2025 19:30:51 Incomplete right bundle-branch block now present T-wave abnormality still present /store/S0/[id number]/ecg/[id number].pdf
--- NOTE | 2025-07-18 07:40 | PD.EDWEAK ---
ED Weakness RME/HPI General Chief complaint: Weakness Stated complaint: WEAKNESS Time Seen by Provider: 07/18/25 07:30 Source: patient Arrival date/time: 07/18/25 06:45 Mode of arrival: EMS RME / HPI RME / HPI Narrative: Mr. Mcnulty is a 50-year-old male with past medical history of Hypertension, Hyperlipdemia, Diabetes Mellitus type 2 on metformin and Ozempic, History of bilateral recurrent DVTs, history of PE s/p IVC filter on Xarelto, Factor V Leiden mutation on Xarelto, HFpEF 55-60% (05/11/2025), Diastolic Dysfunction, CAD, Hypothyroidism, history of gout, restless leg syndrome , AYLEEN on Cpap, and BPH was brought by EMS for difficulty with being able to be aroused this morning. Patient on evaluation in the ED he is alert and oriented x 4, able to provide history, he reports that his roommate tried to wake him up earlier this morning, he was wearing CPAP and she was unable to wake him up, she called EMS for assistance and patient was unresponsive to sternal rub initially however eventually woke up and returned to baseline. Related Data Home Medications ?Medication ?Instructions ?Recorded ?Confirmed lisinopril 20 mg tablet 20 mg PO BID #0 tabs 08/22/17 06/23/25 metformin 500 mg tablet 500 mg PO HS 06/28/21 06/23/25 ropinirole 0.25 mg tablet 0.25 mg PO HS 10/03/21 06/23/25 amiodarone 200 mg tablet 200 mg PO QDAY 04/05/22 06/23/25 atorvastatin 40 mg tablet 40 mg PO HS 09/04/22 06/23/25 finasteride 5 mg tablet 5 mg PO QDAY 10/24/23 06/23/25 allopurinol 100 mg tablet 200 mg PO DAILY 01/07/25 06/23/25 loratadine 10 mg tablet (Claritin) 10 mg PO QDAY PRN allergic symptoms 01/07/25 06/23/25 multivitamin (Daily Multi-Vitamin 1 tab PO QAM 01/07/25 06/23/25 tablet) ondansetron HCl 4 mg tablet 4 mg PO TID PRN nausea and vomiting 01/07/25 06/23/25 albuterol sulfate 90 mcg/actuation 90 mcg inhalation Q4H PRN 06/23/25 06/23/25 breath activated powder inhaler shortness of breath or wheezing (ProAir RespiClick) benzonatate 200 mg capsule 200 mg PO 3XD PRN cough 06/23/25 06/23/25 furosemide 20 mg tablet 20 mg PO DAILY 06/23/25 06/23/25 gabapentin 100 mg capsule 100 mg PO 3XD 06/23/25 06/23/25 Previous Rx's ?Medication ?Instructions ?Recorded rivaroxaban 20 mg tablet (Xarelto) 20 mg PO QDAY #30 tabs 01/28/25 Allergies Allergy/AdvReac Type Severity Reaction Status Date / Time No Known Allergies Allergy Verified 07/18/25 06:57 Review of Systems Review of Systems Systems Reviewed: All systems reviewed, normal except as documented Past Medical History Past Medical History NEUROLOGIC: Negative Neurological Disorders (Episodes of syncope) CARDIAC: Positive Cardiac Disorders, Myocardial Infarction, Angina, Coronary Artery Disease, Atherosclerotic Heart Disease, Hypercholesterolemia, Congestive Heart Failure, Edema, Deep Vein Thrombosis and Hypertension RESPIRATORY: Positive Asthma, Pneumonia, Pulmonary Embolism and Sleep Apnea; Negative Chronic Obstructive Pulmonary Disease (COPD) GASTROINTESTINAL: Positive Gastrointestinal Disorders, Gastroesophageal Reflux Disease and Obesity GENITOURINARY: Positive Genitourinary Disorders, Kidney Stones and Benign Prostatic Hyperplasia; Negative Renal Disease MUSCULOSKELETAL: Positive Musculoskeletal Disorders and Gout ENDOCRINE: Positive Endocrine Disorders and Diabetes Mellitus Type 2; Negative Diabetes Mellitus Type 1 HEMATOLOGIC: Positive Blood Disorders and Clotting Problems (Factor V mutation); Negative Anemia or Sickle Cell Disease PSYCHO/SOCIAL: Positive Anxiety OTHER HISTORY: Positive Developmental Delay and Falls; Negative Autoimmune Disease, Blood Transfusions, Anesthesia Reactions or Cancer Family History FAMILY HISTORY: Positive Family Cardiac Disorders, Family Cancer and Family Surgery; Negative Family Neurologic Problems, Family Psychiatric Problems, Family Respiratory Disorders, Family Gastrointestinal Problems or Family Anesthesia Reaction Surgical History SURGICAL: Positive Vascular Surgery and Angiogram; Negative Coronary Stent Social History SMOKING STATUS: Never smoker SECOND HAND EXPOSURE: No SUBSTANCE USE: does not use 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 Conversational and non-toxic appearing. HEENT: Normocephalic, atraumatic, mucous membranes moist. Heart: Regular rate and rhythm, no murmurs. Lungs: Clear to auscultation with no wheezing or crackles. Abdomen: Soft, nondistended, nontender, positive bowel sounds. ?No guarding or rebound tenderness. Neurologic: Alert and oriented x3, no gross neurological deficit, and patient able to move all 4 extremities.ambulates w/o difficulty Extremities: 1+ right lower extremity edema, right lower extremity edema greater than left, chronic per patient, no change Skin: No rash or ecchymoses. Course Quality Measures none Orders Category Date Time Status Bedside COVID-19 Antigen Test NOW Care 07/18/25 07:39 Completed Bedside Influenza A&B Antigen Test NOW Care 07/18/25 07:[address] Screening NOW Care 07/18/25 09:[address] Screening NOW Care 07/18/25 09:12 Completed EKG (ED ONLY) *Do not use* NOW Care 07/18/25 07:[address] angio abd ilio fem runoff Stat Exams 07/18/25 09:[address] head/brain wo con Stat Exams 07/18/25 09:14 Completed EKG (ED Only) Stat Exams 07/18/25 07:10 Draft US venous doppler LE BI Stat Exams 07/18/25 08:52 Completed CBC Stat Lab 07/18/25 07:36 Completed CK [Creatine Kinase] Stat Lab 07/18/25 07:36 Completed CMP [Comprehensive Metabolic Panel] Stat Lab 07/18/25 07:36 Completed Drug Screen,Urine Stat Lab 07/18/25 09:44 Completed Magnesium Stat Lab 07/18/25 07:36 Completed Troponin I Stat Lab 07/18/25 07:36 Completed Urinalysis Stat Lab 07/18/25 09:44 Completed VBG [Venous Blood Gas] Stat Lab 07/18/25 07:36 Completed Vital Signs Vital signs: Vital Signs Temperature 98.0 F 07/18/25 06:48 Pulse Rate 145 H 07/18/25 06:48 Respiratory Rate 20 07/18/25 06:48 Blood Pressure 145/90 H 07/18/25 06:48 Pulse Oximetry (%) 94 L 07/18/25 06:48 Oxygen Delivery Method Room Air 07/18/25 06:48 Weakness MDM Narrative MDM Narrative:: Patient was recently discharged from hospital on June 23, 2025 for similar complaints, was attributed to polypharmacy, duloxetine was held however he was resumed by patient's primary care physician. Patient also complains of small BiPAP mask and reports that it does not fit him. Patient's workup in the ED VBG showed no hypercapnia was unremarkable, CMP workable, mild troponin elevation of 0.559 which is around patient's baseline of 0.4-0.5. CT scan of head unremarkable, venous Doppler bilateral lower extremity unremarkable, abdominal CTA with runoff for lower extremities unremarkable as well. #Generalized weakness #Polypharmacy brought by EMS for being unarousable this morning. On evaluation in the ED he is alert and oriented x 4, able to provide history, stable on room air, vitals stable was recently discharged from hospital on June 23, 2025 for similar complaints, was attributed to polypharmacy, duloxetine was held however he was resumed by patient's primary care physician. also complains of small BiPAP mask and reports that it does not fit him. ED VBG showed no hypercapnia was unremarkable, CMP workable, mild troponin elevation of 0.559 which is around patient's baseline . patient w/o chest pain CT scan of head unremarkable, venous Doppler bilateral lower extremity unremarkable, abdominal CTA with runoff for lower extremities unremarkable as well. - Discharge home, hold duloxetine until follow-up with PCP - Recheck with CPAP company to obtain a larger size mask - For other chronic conditions follow-up at higher level of care as recommended in the past Stable for discharge home Case discussed with Attending Physician Dr. Amina Chase MD Internal Medicine PGY-2 Disclaimer: This note was dictated by speech recognition. Minor errors in bridges and buildings supervisor may be present due to voice recognition software. Patient data External records reviewed:: [facility] previous records Clinical information provided by:: patient and family Social determinants that could affect healthcare access:: none Patient has the following chronic illnesses:: Hypertension, Hyperlipdemia, Diabetes Mellitus type 2 on metformin and Ozempic, History of bilateral recurrent DVTs, history of PE s/p IVC filter on Xarelto, Factor V Leiden mutation on Xarelto, HFpEF 55-60% (05/11/2025), Diastolic Dysfunction, CAD, Hypothyroidism, history of gout, restless leg syndrome , AYLEEN on Cpap, and BPH How is presenting disease/condition affected by chronic disease/condition?: exacerbated by Evaluation data The following diagnostics were reviewed and interpreted by me:: lab results, radiology exam(s) and EKG tracing(s) Lab and/or radiology exams considered but not ordered:: n/a Interpretation Summary: ED VBG showed no hypercapnia was unremarkable, CMP workable, mild troponin elevation of 0.559 which is around patient's baseline of 0.4-0.5. CT scan of head unremarkable, venous Doppler bilateral lower extremity unremarkable, abdominal CTA with runoff for lower extremities unremarkable as well. Medications / Prescriptions Medications or Prescriptions considered but not ordered:: n/a Medication administrations:: None Consultations Consultation(s) initiated? (list below): No Diagnosis Weakness Differential Diagnosis: other (Polypharmacy) Most likely diagnosis given after review of the tests above:: Polypharmacy Admission Indicated Admission indicated?: not indicated Admission Request Was there a request for admission?: No Disposition Plan Disposition Plan: Discharge Discharge Attestation Discharge Attestation: The patient and all family members were given an opportunity to ask questions and understood the discharge instructions. Discharge instructions specifically effects, indications for sooner follow up or return to the emergency department, and the expected course of current diagnosis. Patient condition: Stable Critical Care Time Critical Care Time Critical Care Time: Yes Total Critical Care Time (min.): 60 Attestation: I spent 60 minutes of critical care time with this patient not including reportable procedures. There was an acute impairment of an organ system with a high probability of imminent or life threatening deterioration in the patient's condition. Interventions and changes required in the course of therapy are located in the chart. Time involved was spent in direct patient care, reviewing ancillary data, old records, consulting with decision makers, EMS, other doctors, giving orders and documenting. Discharge Plan Plan Patient Disposition: HOME (Self Care) Patient condition on transfer: Stable Health Concerns: - Hold duloxetine, do not take duloxetine until you follow-up with your primary care physician - Patient's non-arousability is likely secondary to polypharmacy, patient was recently admitted and duloxetine was discontinued - Need a new CPAP mask, complains that his CPAP mask is too small and is unable to fit him. Follow-up with PCP to obtain a new mask. - Factor V Leiden mutation, history of DVT and IVC filter placement noted, patient will benefit from tertiary care evaluation and management - Stable for discharge, return to emergency department if symptoms worsen. Prescriptions/Referrals Prescriptions/Med Rec: Discontinued duloxetine 30 mg capsule,delayed release(DR/EC) 30 mg PO QDAY No Action lisinopril 20 MG tablet 20 mg PO BID Qty: 0 Patient Comments: JERMAN MORRIS, ONLY TAKES IF SBP >125 metformin 500 mg tablet 500 mg PO HS Patient Comments: TAKE 1 TABLET BY MOUTH EVERY DAY AT BEDTIME FOR DIABETES ropinirole 0.25 mg Tablet 0.25 mg PO HS Patient Comments: 1-3 HRS PRIOR TO BEDTIME amiodarone 200 mg Tablet 200 mg PO QDAY atorvastatin 40 mg tablet 40 mg PO HS Patient Comments: TAKE 1 TABLET BY MOUTH AT BEDTIME FOR CHOLESTEROL benzonatate 200 mg capsule 200 mg PO 3XD PRN (Reason: cough) Patient Comments: TAKE 1 CAPSULE BY MOUTH THREE TIMES A DAY NEEDED FOR COUGH gabapentin 100 mg capsule 100 mg PO 3XD Patient Comments: TAKE 1 CAPSULE BY MOUTH THREE TIMES A DAY FOR 30 DAYS furosemide 20 mg tablet 20 mg PO DAILY Patient Comments: TAKE 1 TABLET BY MOUTH EVERY DAY IN THE MORNING FOR EDEMA ProAir RespiClick 90 mcg/actuation aerosol powdr breath activated 90 mcg INHALATION Q4H PRN (Reason: shortness of breath or wheezing) Patient Comments: INHALE 1-2 PUFF EVERY 4 HOURS INHALATION NEEDED finasteride 5 mg tablet 5 mg PO QDAY Patient Comments: TAKE 1 TABLET BY MOUTH EVERY DAY allopurinol 100 mg tablet 200 mg PO DAILY Patient Comments: TAKE 2 TABS BY MOUTH 1 TIME A DAY FOR GOUT multivitamin [Daily Multi-Vitamin] Tablet 1 tab PO QAM loratadine [Claritin] 10 mg tablet 10 mg PO QDAY PRN (Reason: allergic symptoms) ondansetron HCl 4 mg tablet 4 mg PO TID PRN (Reason: nausea and vomiting) Xarelto 20 mg tablet 20 mg PO QDAY Qty: 30 3RF Rx Instructions: must administer with evening meal Problem List Clinical Impression: Polypharmacy Patient/Caregiver Discharge Instructions Discharge Activity: activity as tolerated Print Language: Slovak Stand Alone Forms: [employer] Award Info., Patient Portal Info Letter
[2025-07-18 07:44] LABS: Base Excess, Venous 3 (-3-3); O2 Saturation, Venous 84 % (96-97); PCO2, Venous 42 mmHg (36-56); PO2, Venous 43 mmHg (15-58); pH, Venous 7.44 (7.33-7.66)
[2025-07-18 08:03] LABS: Basophils # (Auto) 0.0 Thou/mm3 (0.0-0.2); Basophils % (Auto) 1 % (0-2.5); Eosinophils # (Auto) 0.1 Thou/mm3 (0.0-0.5); Eosinophils % (Auto) 2 % (0-10); Hematocrit 51.8 % (41.0-53.0); Hemoglobin 17.2 g/dL (13.5-16.0); Immature Granulocytes Auto 0.01 Thou/mm3 (0.00-0.00); Lymphocytes # (Auto) 1.8 Thou/mm3 (1.0-4.8); Lymphocytes % (Auto) 32 % (10-50); Mean Corpuscular HGB Conc 33.2 g/dl (31.0-37.0); Mean Corpuscular Hemoglobin 30.7 pg (25.0-35.0); Mean Corpuscular Volume 92 fL (80-100); Monocytes # (Auto) 0.8 Thou/mm3 (0.0-0.8); Monocytes % (Auto) 14 % (0-12); Neutrophils # (Auto) 2.9 Thou/mm3 (1.8-7.7); Neutrophils % (Auto) 51 % (37-80); Nucleated Red Blood Cell # 0.00 Thou/mm3 (0.00-0.00); Nucleated Red Blood Cell % 0 /100 WBC (0); Platelet Count 210 Thou/mm3 (140-440); RDW Standard Deviation 43.9 fL (35.1-43.9); Red Blood Count 5.61 Miln/mm3 (4.50-5.90); White Blood Count 5.6 Thou/mm3 (3.8-10.6)
[2025-07-18 08:08] VITALS: BP 112/91; PULSE 65; RESP 18; TEMP 36.8; O2SAT 97
[2025-07-18 08:15] LABS: Alanine Aminotransferase 24 U/L (10-49); Albumin, Serum 3.9 gm/dL (3.5-5.0); Albumin/Globulin Ratio 1.6 (1.2-2.2); Alkaline Phosphatase 179 U/L (46-116); Anion Gap 10 (7-16); Aspartate Amino Transferase 22 U/L (0-34); BUN/Creatinine Ratio 8 Ratio (12-20); Bilirubin,Total 0.7 mg/dL (0.3-1.2); Blood Urea Nitrogen 9 mg/dL (9-23); Calcium 9.4 mg/dL (8.3-10.6); Calcium (Corrected) 9.5 mg/dL (8.5-10.1); Carbon Dioxide 27.3 mMol/L (20.0-31.0); Chloride 104 mMol/L (98-107); Creatine Kinase 132 U/L (34-171); Creatinine (Component) 1.2 mg/dL (0.6-1.3); Estimated Creatinine Clearance 87.1 mL/min (>60); Globulin 2.4 gm/dL (2.3-3.5); Glucose 98 mg/dL (74-106); Magnesium 1.9 mg/dL (1.6-2.6); Osmolality,Calculated 279 (275-295); Potassium 3.9 mMol/L (3.4-5.1); Sodium 141 mMol/L (136-145); Total Protein 6.3 gm/dL (5.7-8.2); eGFR > 60 See Note
--- NOTE | 2025-07-18 08:52 | XR_ITS ---
Examination: Venous duplex lower extremity sonogram, bilateral. Date and time of exam: 07/18/2025 1059 hrs Indications: leg pain and swelling today Technique: Multiple sonographic images of the deep venous system have been obtained. B-mode/2-D grayscale imaging of vascular structures and Doppler spectral analysis (waveforms) and color performed Both legs are examined. Findings: Deep venous systems do not demonstrate abnormal echogenicity. All visualized deep veins exhibit compressibility. All visualized deep veins exhibit augmentation. Impression: Negative for deep vein thrombosis
--- NOTE | 2025-07-18 09:11 | XR_ITS ---
Examination: CTA abdominal aorta iliofemoral runoff. 2-D sagittal coronal reconstructions. 3-D reconstructions, vascular July 18, T2 thousand 25, 10:54 PM. Indications: Lower extremity swelling and pain this week. Technique: Multiple CTA images of the abdominal aorta iliofemoral runoff arterial vessels, 2.0 mm slice thickness, post intravenous administration 100 cc [id number]. 2-D sagittal coronal reconstructions. 3-D reconstructions, vascular 3-D postprocessing, including vascular maximum intensity projection images, 3-D volume rendering Low dose protocols were performed. One or more of the following dose reduction techniques were used; automated exposure control, adjustment of the mA and/or KV according to patient size, use of iterative reconstruction technique. Findings: Mild enlargement cardiac contour. Fatty infiltration throughout the liver. No gallstones. Spleen not enlarged. No adrenal mass. No renal or ureteral calculi, no hydronephrosis. Normal appendix. No bowel obstruction. No abdominal aortic aneurysmal dilatation or dissection. Common iliac and external iliac and common femoral arteries do fill with no stenoses Bilateral superficial femoral arteries fill with no significant stenoses Bilateral popliteal arteries are intact. Trifurcation arteries below the knee, anterior tibial and main continuation trunk and posterior tibial arteries fill to the ankles Impression: No significant obstructive arterial disease .
--- NOTE | 2025-07-18 09:14 | XR_ITS ---
Examination: CT brain head without contrast. 2-D sagittal coronal reconstructions Date and time:2024 at6/2024 1000 hrs indication: confusion today/ CTDI: vol (mGy):50.9 DLP: (mGycm):954 Technique: Multiple CT axial sections of the brain have been obtained, 5 mm slice thickness. Contrast has not been administered. 2-D sagittal, coronal reconstructions have been obtained Low dose protocols were performed. One or more of the following dose reduction techniques were used; automated exposure control, adjustment of the mA and/or KV according to patient size, use of iterative reconstruction technique. Findings: No significant ventricular enlargement. Intra-axial or extra-axial hemorrhage density is not seen. No mass effect or midline shift Basal cisterns are not remarkable. Fourth ventricle is midline. Cranial vault intact. Impression: Negative for acute hemorrhage, mass effect or midline shift
[2025-07-18 10:25] LABS: Collection Type, Urine Clean Catch; Squamous Epithelial Cell,Urine 0 /hpf (0-5)
[2025-07-18 11:08] LABS: Bilirubin,Urine Negative (Negative); Blood,Urine Negative (Negative); Clarity,Urine Clear (Clear/Hazy); Color,Urine Yellow (Lt Yel-Yel); Glucose, Urine Negative (Negative); Ketones,Urine Negative (Negative); Nitrite,Urine Negative (Negative); PH,Urine 6.0 (5.0-7.0); Protein,Urine Trace (Neg - Trace); RBC,Urine 6 /hpf (0-3); Specific Gravity,Urine 1.033 (1.001-1.035); Urobilinogen,Urine Negative mg/dL (0.0-1.0); WBC,Urine 1 /hpf (0-5)
[2025-07-18 11:11] LABS: Leukocyte Esterase,Urine Trace (Negative)
[2025-07-18 11:13] LABS: Troponin I 0.559 ng/mL (0.0-0.045)
[2025-07-18 11:24] LABS: Amphetamine/Methamp Scrn,U Negative (Negative); Barbiturate Screen,Urine Negative (Negative); Benzodiazepines Screen,Urine Negative (Negative); Benzoylecgonine Screen, Ur Negative (Negative); Fentanyl Screen,Urine Negative (Negative); Opiate Screen,Urine Negative (Negative); THC Screen,Urine Negative (Negative)
[2025-07-18 13:00] VITALS: BP 120/87; PULSE 67; RESP 19; TEMP 36.9; O2SAT 98
[2025-07-18 15:06] VITALS: BP 137/91; PULSE 68; RESP 16; O2SAT 96
== END 2025-07-18 15:10 | disposition home or self-care (01) ==
PROVIDERS: Emergency Provider Emergency Medicine; PCP Physician Assistant
DX: R53.1 Weakness (principal); R41.0 Disorientation, unspecified; R60.0 Localized edema; E78.5 Hyperlipidemia, unspecified; E11.9 Type 2 diabetes mellitus without complications; Z79.84 Long term (current) use of oral hypoglycemic drugs; Z79.85 Long-term (current) use of injectable non-insulin antidiabetic drugs; Z86.711 Personal history of pulmonary embolism; Z79.01 Long term (current) use of anticoagulants; I11.0 Hypertensive heart disease with heart failure; I50.30 Unspecified diastolic (congestive) heart failure; D68.51 Activated protein C resistance; E03.9 Hypothyroidism, unspecified; G25.81 Restless legs syndrome; I25.10 Atherosclerotic heart disease of native coronary artery without angina pectoris; G47.33 Obstructive sleep apnea (adult) (pediatric); Z99.89 Dependence on other enabling machines and devices; M10.9 Gout, unspecified; N40.0 Benign prostatic hyperplasia without lower urinary tract symptoms; Z86.718 Personal history of other venous thrombosis and embolism; Z95.828 Presence of other vascular implants and grafts
CPT/HCPCS: 36415; 70450; 75635; 80053; 80307; 81001; 82550; 82803; 83735; 84484; 85025; 93005; 93970; 99284; A4649; Q9967

== ENCOUNTER 2025-10-21 03:27 | Emergency (ER) | payer MEDICAID, SELFPAY ==
[2025-10-21 03:29] VITALS: PULSE 75; RESP 18; O2SAT 98; BMI 38.2
[2025-10-21 03:49] VITALS: BP 129/85; PULSE 82; RESP 19; TEMP 36.8; O2SAT 96
--- NOTE | 2025-10-21 04:40 | PD.EDANKLE ---
Lower Extremity Injury RME/HPI General Chief Complaint: Extremity Injury, Lower Stated Complaint: BILAT FOOT PAIN Time Seen by Provider: 10/21/25 04:26 Arrival date/time: 10/21/25 03:27 50M with extensive PMH including DVT/PE on Xarelto presents to ED with several days of bilateral feet/sole pain. Patient has been walking more recently. Limitations: no limitations Related Data Home Medications ?Medication ?Instructions ?Recorded ?Confirmed lisinopril 20 mg tablet 20 mg PO BID #0 tabs 08/22/17 06/23/25 metformin 500 mg tablet 500 mg PO HS 06/28/21 06/23/25 ropinirole 0.25 mg tablet 0.25 mg PO HS 10/03/21 06/23/25 amiodarone 200 mg tablet 200 mg PO QDAY 04/05/22 06/23/25 atorvastatin 40 mg tablet 40 mg PO HS 09/04/22 06/23/25 finasteride 5 mg tablet 5 mg PO QDAY 10/24/23 06/23/25 allopurinol 100 mg tablet 200 mg PO DAILY 01/07/25 06/23/25 loratadine 10 mg tablet (Claritin) 10 mg PO QDAY PRN allergic symptoms 01/07/25 06/23/25 multivitamin (Daily Multi-Vitamin 1 tab PO QAM 01/07/25 06/23/25 tablet) ondansetron HCl 4 mg tablet 4 mg PO TID PRN nausea and vomiting 01/07/25 06/23/25 albuterol sulfate 90 mcg/actuation 90 mcg inhalation Q4H PRN 06/23/25 06/23/25 breath activated powder inhaler shortness of breath or wheezing (ProAir RespiClick) benzonatate 200 mg capsule 200 mg PO 3XD PRN cough 06/23/25 06/23/25 furosemide 20 mg tablet 20 mg PO DAILY 06/23/25 06/23/25 gabapentin 100 mg capsule 100 mg PO 3XD 06/23/25 06/23/25 Previous Rx's ?Medication ?Instructions ?Recorded rivaroxaban 20 mg tablet (Xarelto) 20 mg PO QDAY #30 tabs 01/28/25 Allergies Allergy/AdvReac Type Severity Reaction Status Date / Time No Known Allergies Allergy Verified 10/21/25 03:34 Review of Systems Review of Systems Systems Reviewed: All systems reviewed, normal except as documented Musculoskeletal Musculoskeletal: Reports as per HPI and Reports arthralgias Past Medical History Past Medical History NEUROLOGIC: Negative Neurological Disorders (Episodes of syncope) CARDIAC: Positive Cardiac Disorders, Myocardial Infarction, Angina, Coronary Artery Disease, Atherosclerotic Heart Disease, Hypercholesterolemia, Congestive Heart Failure, Edema, Deep Vein Thrombosis and Hypertension RESPIRATORY: Positive Asthma, Pneumonia, Pulmonary Embolism and Sleep Apnea; Negative Chronic Obstructive Pulmonary Disease (COPD) GASTROINTESTINAL: Positive Gastrointestinal Disorders, Gastroesophageal Reflux Disease and Obesity GENITOURINARY: Positive Genitourinary Disorders, Kidney Stones and Benign Prostatic Hyperplasia; Negative Renal Disease MUSCULOSKELETAL: Positive Musculoskeletal Disorders and Gout ENDOCRINE: Positive Endocrine Disorders and Diabetes Mellitus Type 2; Negative Diabetes Mellitus Type 1 HEMATOLOGIC: Positive Blood Disorders and Clotting Problems (Factor V mutation); Negative Anemia or Sickle Cell Disease PSYCHO/SOCIAL: Positive Anxiety OTHER HISTORY: Positive Developmental Delay and Falls; Negative Autoimmune Disease, Blood Transfusions, Anesthesia Reactions or Cancer Family History FAMILY HISTORY: Positive Family Cardiac Disorders, Family Cancer and Family Surgery; Negative Family Neurologic Problems, Family Psychiatric Problems, Family Respiratory Disorders, Family Gastrointestinal Problems or Family Anesthesia Reaction Surgical History SURGICAL: Positive Vascular Surgery and Angiogram; Negative Coronary Stent Social History SMOKING STATUS: Never smoker SECOND HAND EXPOSURE: No SUBSTANCE USE: does not use 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 ED Exam General Limitations: Present no limitations General appearance: Present alert and in no apparent distress Head Head exam: Present atraumatic Neck Neck exam: Present normal inspection, full ROM and trachea midline Chest Chest inspection: Present normal inspection and symmetric chest wall rise Extremities Exam Extremities exam: Present normal inspection and full ROM Neurological Exam Neurological exam: Present alert and oriented X3 Psychiatric Psychiatric exam: Present normal affect and normal mood Skin Skin exam: Present warm, dry, intact and normal color Course Quality Measures none Orders Category Date Time Status HYDROcodone*/APAP 5/325 [[place] 5/325] Med 10/21/25 04:32 Discontinued 1 tab PO X1 ONE Vital Signs Vital signs: Vital Signs Temperature 98.2 F 10/21/25 03:49 Pulse Rate 82 10/21/25 03:49 Respiratory Rate 19 10/21/25 03:49 Blood Pressure 129/85 H 10/21/25 03:49 Pulse Oximetry (%) 96 10/21/25 03:49 Oxygen Delivery Method Room Air 10/21/25 03:49 O2 at 96% on RA and WNLs Extremity Injury, Lower MDM Narrative MDM Narrative:: 50M with extensive PMH including DVT/PE on Xarelto presents to ED with several days of bilateral feet/sole pain. Patient has been walking more recently. Physical exam reveals no obvious swelling, redness, tenderness, or ulcerations on feet/sole. Patient is afebrile, calm, and alert. Meds and memorial counselor given. Patient data External records reviewed:: [facility] previous records Clinical information provided by:: patient Social determinants that could affect healthcare access:: none Patient has the following chronic illnesses:: extensive PMH including DVT/PE on Xarelto How is presenting disease/condition affected by chronic disease/condition?: exacerbated by Evaluation data The following diagnostics were reviewed and interpreted by me:: other (specify) (none) Lab and/or radiology exams considered but not ordered:: not ordered Interpretation Summary: n/a Medications / Prescriptions Medications or Prescriptions considered but not ordered:: ordered Medication administrations:: Medication Administration History Discontinued Medications Hydrocodone Bitart/Acetaminophen (Hydrocodone/Apap 5/325 Tablet) 1 tab PO X1 ONE Stop: 10/21/25 04:33 above Consultations Consultation(s) initiated? (list below): No Diagnosis Extremity Injury, Lower Differential Diagnosis: ankle sprain and strain, acute internal derangement of knee, puncture wound of foot, fracture of toe, ankle fracture and other (feet pain) Most likely diagnosis given after review of the tests above:: feet pain Admission Indicated Admission indicated?: not indicated Admission Request Was there a request for admission?: No Disposition Plan Disposition Plan: Discharge Discharge Attestation Discharge Attestation: The patient and all family members were given an opportunity to ask questions and understood the discharge instructions. Discharge instructions specifically effects, indications for sooner follow up or return to the emergency department, and the expected course of current diagnosis. Patient condition: Stable Discharge Plan Plan Patient Disposition: HOME (Self Care) Discharge Disposition comment: Stable Prescriptions/Referrals Prescriptions/Med Rec: No Action lisinopril 20 MG tablet 20 mg PO BID Qty: 0 Patient Comments: PER GHAZALA MORRIS, ONLY TAKES IF SBP >125 metformin 500 mg tablet 500 mg PO HS Patient Comments: TAKE 1 TABLET BY MOUTH EVERY DAY AT BEDTIME FOR DIABETES ropinirole 0.25 mg Tablet 0.25 mg PO HS Patient Comments: 1-3 HRS PRIOR TO BEDTIME amiodarone 200 mg Tablet 200 mg PO QDAY atorvastatin 40 mg tablet 40 mg PO HS Patient Comments: TAKE 1 TABLET BY MOUTH AT BEDTIME FOR CHOLESTEROL benzonatate 200 mg capsule 200 mg PO 3XD PRN (Reason: cough) Patient Comments: TAKE 1 CAPSULE BY MOUTH THREE TIMES A DAY NEEDED FOR COUGH gabapentin 100 mg capsule 100 mg PO 3XD Patient Comments: TAKE 1 CAPSULE BY MOUTH THREE TIMES A DAY FOR 30 DAYS furosemide 20 mg tablet 20 mg PO DAILY Patient Comments: TAKE 1 TABLET BY MOUTH EVERY DAY IN THE MORNING FOR EDEMA ProAir RespiClick 90 mcg/actuation aerosol powdr breath activated 90 mcg INHALATION Q4H PRN (Reason: shortness of breath or wheezing) Patient Comments: INHALE 1-2 PUFF EVERY 4 HOURS INHALATION NEEDED finasteride 5 mg tablet 5 mg PO QDAY Patient Comments: TAKE 1 TABLET BY MOUTH EVERY DAY allopurinol 100 mg tablet 200 mg PO DAILY Patient Comments: TAKE 2 TABS BY MOUTH 1 TIME A DAY FOR GOUT multivitamin [Daily Multi-Vitamin] Tablet 1 tab PO QAM loratadine [Claritin] 10 mg tablet 10 mg PO QDAY PRN (Reason: allergic symptoms) ondansetron HCl 4 mg tablet 4 mg PO TID PRN (Reason: nausea and vomiting) Xarelto 20 mg tablet 20 mg PO QDAY Qty: 30 3RF Rx Instructions: must administer with evening meal Problem List Clinical Impression: Foot pain Patient/Caregiver Discharge Instructions Education Materials: Parts of a Foot Additional Instructions: Please follow-up with PCP within 24-48 hours and return immediately if symptoms worsen. Print Language: Serbian Stand Alone Forms: Patient Portal Info Letter RENAE/KARI Supervising Physician RENAE/KARI Supervising Physician: Dr. West
[2025-10-21] MEDS: HYDROcodone/APAP 5/325 TABLET 1 TAB PO (04:41)
== END 2025-10-21 04:47 | disposition home or self-care (01) ==
LOC: SERX 04:43
PROVIDERS: Emergency Provider Emergency Medicine; PCP Physician Assistant
DX: M79.672 Pain in left foot (principal); M79.671 Pain in right foot
CPT/HCPCS: 99281; A9270

== ENCOUNTER 2025-10-27 02:57 | Emergency (ER) | payer MEDICAID, SELFPAY ==
[2025-10-27 02:59] VITALS: BMI 38.2
[2025-10-27 03:04] VITALS: BP 156/83; PULSE 78; RESP 19; TEMP 36.6; O2SAT 96
--- NOTE | 2025-10-27 03:20 | XR_ITS ---
Examination: Venous duplex lower extremity sonogram, bilateral. Date and time of exam: October 27, 2025, 0533 hours INDICATIONS: Onset bilateral leg pain today Technique: Multiple sonographic images of the deep venous system have been obtained. B-mode/2-D grayscale imaging of vascular structures and Doppler spectral analysis (waveforms) and color performed Both legs are examined. Findings: Positive for nonocclusive thrombus involving the distal right superficial femoral vein The entire deep venous system on the left is normal IMPRESSION: Positive for nonocclusive acute thrombus involving the distal right superficial femoral vein
--- NOTE | 2025-10-27 03:22 | PD.EDRME ---
Rapid Medical Screening Exam RME Arrival date/time: 10/27/25 02:57 Chief Complaint: General Adult/Misc Complain Time Seen by Provider: 10/27/25 02:58 Vital signs: Vital Signs Temperature 98 F 10/27/25 03:04 Pulse Rate 78 10/27/25 03:04 Respiratory Rate 19 10/27/25 03:04 Blood Pressure 156/83 H 10/27/25 03:04 Pulse Oximetry (%) 96 10/27/25 03:04 Oxygen Delivery Method Room Air 10/27/25 03:04 RME Narrative: 50-year-old male with a past medical history of blood clots currently on Xarelto, diabetes, peripheral neuropathy who is complaining of acute exacerbation of his peripheral neuropathy which occurred tonight with bilateral feet pain radiating up his legs. He is stating that he walk he is walking more than normal. I briefly performed a screening evaluation to initiate work-up and expedite care. Complete history, physical exam, and plan of care is deferred to the provider in the main ED. Exam: Head: Normocephalic, atraumatic. Respiratory: Normal effort. No respiratory distress or accessory muscle use. Neuro: Speech normal. Skin: Warm, dry, normal color. Psych: Pleasant. Normal affect. Cooperative. Clinical Impression: Feet pain and leg pain
[2025-10-27] MEDS: HYDROcodone/APAP 5/325 TABLET 1 TAB PO (03:46)
[2025-10-27 04:00] LABS: Basophils # (Auto) 0.1 Thou/mm3 (0.0-0.2); Basophils % (Auto) 1 % (0-2.5); Eosinophils # (Auto) 0.1 Thou/mm3 (0.0-0.5); Eosinophils % (Auto) 2 % (0-10); Hematocrit 52.9 % (41.0-53.0); Hemoglobin 17.9 g/dL (13.5-16.0); Immature Granulocytes Auto 0.02 Thou/mm3 (0.00-0.00); Lymphocytes # (Auto) 2.2 Thou/mm3 (1.0-4.8); Lymphocytes % (Auto) 32 % (10-50); Mean Corpuscular HGB Conc 33.8 g/dl (31.0-37.0); Mean Corpuscular Hemoglobin 31.4 pg (25.0-35.0); Mean Corpuscular Volume 93 fL (80-100); Monocytes # (Auto) 0.7 Thou/mm3 (0.0-0.8); Monocytes % (Auto) 11 % (0-12); Neutrophils # (Auto) 3.8 Thou/mm3 (1.8-7.7); Neutrophils % (Auto) 55 % (37-80); Nucleated Red Blood Cell # 0.00 Thou/mm3 (0.00-0.00); Nucleated Red Blood Cell % 0 /100 WBC (0); Platelet Count 244 Thou/mm3 (140-440); RDW Standard Deviation 41.8 fL (35.1-43.9); Red Blood Count 5.70 Miln/mm3 (4.50-5.90); White Blood Count 6.8 Thou/mm3 (3.8-10.6)
[2025-10-27 04:20] LABS: B-Type Natriuretic Peptide < 20 pg/mL (0-100)
[2025-10-27 04:21] LABS: Alanine Aminotransferase 21 U/L (10-49); Albumin, Serum 4.4 gm/dL (3.5-5.0); Albumin/Globulin Ratio 1.6 (1.2-2.2); Alkaline Phosphatase 167 U/L (46-116); Anion Gap 10 (7-16); Aspartate Amino Transferase 20 U/L (0-34); BUN/Creatinine Ratio 8 Ratio (12-20); Bilirubin,Total 0.5 mg/dL (0.3-1.2); Blood Urea Nitrogen 11 mg/dL (9-23); Calcium 9.8 mg/dL (8.3-10.6); Calcium (Corrected) 9.8 mg/dL (8.5-10.1); Carbon Dioxide 30.7 mMol/L (20.0-31.0); Chloride 103 mMol/L (98-107); Creatine Kinase 127 U/L (34-171); Creatinine (Component) 1.3 mg/dL (0.6-1.3); Estimated Creatinine Clearance 75.6 mL/min (>60); Globulin 2.8 gm/dL (2.3-3.5); Glucose 92 mg/dL (74-106); Osmolality,Calculated 286 (275-295); Potassium 4.3 mMol/L (3.4-5.1); Sodium 144 mMol/L (136-145); Total Protein 7.2 gm/dL (5.7-8.2); eGFR > 60 See Note
--- NOTE | 2025-10-27 04:21 | PD.EDADULT ---
ED General RME/HPI General Chief complaint: General Adult/Misc Complain Stated complaint: BILATERAL HAND AND FOOT PAIN Time Seen by Provider: 10/27/25 02:58 Arrival date/time: 10/27/25 02:57 Limitations: no limitations RME / HPI RME / HPI narrative: 50-year-old male with a past medical history of blood clots currently on Xarelto, diabetes, peripheral neuropathy who is complaining of acute exacerbation of his peripheral neuropathy which occurred tonight with bilateral feet pain radiating up his legs. He is stating that he walk he is walking more than normal. I briefly performed a screening evaluation to initiate work-up and expedite care. Complete history, physical exam, and plan of care is deferred to the provider in the main ED. Dr. Huynh's Main ED Evaluation: 50yo male with history of HTN, HLD, DMII on metformin and Ozempic, history of bilateral recurrent DVTs, history of PE s/p IVC filter on Xarelto, Factor V Leiden mutation on Xarelto, HFpEF 55-60% (05/11/2025), diastolic dysfunction, CAD, hypothyroidism, history of gout, restless leg syndrome, AYLEEN on CPAP, BPH presents to the ED for a chief complaint of worsening bilateral foot pain. Patient states his pain feels similar to his peripheral neuropathy, but reports it's worse than normal. His pain radiates up his bilateral legs. Patient endorses being compliant with his medications. Patient denies any BLE swelling, fever, chills, N/V, worsening shortness of breath, chest pain, or any other associated symptoms. NKA. PCP: [facility] Related Data Home Medications ?Medication ?Instructions ?Recorded ?Confirmed lisinopril 20 mg tablet 20 mg PO BID #0 tabs 08/22/17 06/23/25 metformin 500 mg tablet 500 mg PO HS 06/28/21 06/23/25 ropinirole 0.25 mg tablet 0.25 mg PO HS 10/03/21 06/23/25 amiodarone 200 mg tablet 200 mg PO QDAY 04/05/22 06/23/25 atorvastatin 40 mg tablet 40 mg PO HS 09/04/22 06/23/25 finasteride 5 mg tablet 5 mg PO QDAY 10/24/23 06/23/25 allopurinol 100 mg tablet 200 mg PO DAILY 01/07/25 06/23/25 loratadine 10 mg tablet (Claritin) 10 mg PO QDAY PRN allergic symptoms 01/07/25 06/23/25 multivitamin (Daily Multi-Vitamin 1 tab PO QAM 01/07/25 06/23/25 tablet) ondansetron HCl 4 mg tablet 4 mg PO TID PRN nausea and vomiting 01/07/25 06/23/25 albuterol sulfate 90 mcg/actuation 90 mcg inhalation Q4H PRN 06/23/25 06/23/25 breath activated powder inhaler shortness of breath or wheezing (ProAir RespiClick) benzonatate 200 mg capsule 200 mg PO 3XD PRN cough 06/23/25 06/23/25 furosemide 20 mg tablet 20 mg PO DAILY 06/23/25 06/23/25 gabapentin 100 mg capsule 100 mg PO 3XD 06/23/25 06/23/25 Previous Rx's ?Medication ?Instructions ?Recorded rivaroxaban 20 mg tablet (Xarelto) 20 mg PO QDAY #30 tabs 01/28/25 Allergies Allergy/AdvReac Type Severity Reaction Status Date / Time No Known Allergies Allergy Verified 10/27/25 02:58 Review of Systems Review of Systems Systems Reviewed: All systems reviewed, normal except as documented ED Exam General Limitations: Present no limitations General appearance: Present alert and in no apparent distress Head Head exam: Present atraumatic Eye Eye exam: Present normal appearance, PERRL and EOMI ENT ENT exam: Present normal exam, normal oropharynx and mucous membranes moist Neck Neck exam: Present normal inspection, full ROM and trachea midline Chest Chest inspection: Present normal inspection and symmetric chest wall rise Respiratory Respiratory exam: Present normal lung sounds bilaterally Cardiovascular Cardiovascular exam: Present regular rate, normal rhythm and normal heart sounds Abdominal Exam Abdominal exam: Present soft Extremities Exam Extremities exam: Present full ROM and tenderness (diffuse to the bilateral feet with minimal swelling to the feet and ankles, skin is intact; no erythema, fluctuance, or crepitus; 2+ dorsalis pedis pulses, sensations are intact, able to wiggle his toes) Back Exam Back exam: Present normal inspection and full ROM Neurological Exam Neurological exam: Present alert, oriented X3 and CN II-XII intact Psychiatric Psychiatric exam: Present normal affect and normal mood Skin Skin exam: Present warm, dry, intact and normal color Course Course Course Narrative: 0600: Care signed out to Dr. Galloway (emergency physician). Past medical, surgical, social and family history reviewed. Vitals and home medications reviewed. Results and treatment plan discussed. They will assume the care of the patient at this time and will follow the patient, pending ultrasound of the bilateral lower extremities. Quality Measures none Orders Category Date Time Status US venous duplex LE BI Stat Exams 10/27/25 03:20 Ordered BNP [B-Type Natriuretic Peptide] Stat Lab 10/27/25 03:32 Completed CBC [CBC] Stat Lab 10/27/25 03:32 Completed CMP [Comprehensive Metabolic Panel] Stat Lab 10/27/25 03:32 Completed Creatine Kinase Stat Lab 10/27/25 03:32 Completed HYDROcodone*/APAP 5/325 [[place] 5/325] Med 10/27/25 03:29 Discontinued 1 tab PO X1 ONE Vital Signs Vital signs: Vital Signs Temperature 98 F 10/27/25 03:04 Pulse Rate 78 10/27/25 03:04 Respiratory Rate 19 10/27/25 03:04 Blood Pressure 156/83 H 10/27/25 03:04 Pulse Oximetry (%) 96 10/27/25 03:04 Oxygen Delivery Method Room Air 10/27/25 03:04 Discharge Plan Prescriptions/Referrals Prescriptions/Med Rec: No Action lisinopril 20 MG tablet 20 mg PO BID Qty: 0 Patient Comments: PER GHAZALA MORRIS, ONLY TAKES IF SBP >125 metformin 500 mg tablet 500 mg PO HS Patient Comments: TAKE 1 TABLET BY MOUTH EVERY DAY AT BEDTIME FOR DIABETES ropinirole 0.25 mg Tablet 0.25 mg PO HS Patient Comments: 1-3 HRS PRIOR TO BEDTIME amiodarone 200 mg Tablet 200 mg PO QDAY atorvastatin 40 mg tablet 40 mg PO HS Patient Comments: TAKE 1 TABLET BY MOUTH AT BEDTIME FOR CHOLESTEROL benzonatate 200 mg capsule 200 mg PO 3XD PRN (Reason: cough) Patient Comments: TAKE 1 CAPSULE BY MOUTH THREE TIMES A DAY NEEDED FOR COUGH gabapentin 100 mg capsule 100 mg PO 3XD Patient Comments: TAKE 1 CAPSULE BY MOUTH THREE TIMES A DAY FOR 30 DAYS furosemide 20 mg tablet 20 mg PO DAILY Patient Comments: TAKE 1 TABLET BY MOUTH EVERY DAY IN THE MORNING FOR EDEMA ProAir RespiClick 90 mcg/actuation aerosol powdr breath activated 90 mcg INHALATION Q4H PRN (Reason: shortness of breath or wheezing) Patient Comments: INHALE 1-2 PUFF EVERY 4 HOURS INHALATION NEEDED finasteride 5 mg tablet 5 mg PO QDAY Patient Comments: TAKE 1 TABLET BY MOUTH EVERY DAY allopurinol 100 mg tablet 200 mg PO DAILY Patient Comments: TAKE 2 TABS BY MOUTH 1 TIME A DAY FOR GOUT multivitamin [Daily Multi-Vitamin] Tablet 1 tab PO QAM loratadine [Claritin] 10 mg tablet 10 mg PO QDAY PRN (Reason: allergic symptoms) ondansetron HCl 4 mg tablet 4 mg PO TID PRN (Reason: nausea and vomiting) Xarelto 20 mg tablet 20 mg PO QDAY Qty: 30 3RF Rx Instructions: must administer with evening meal Referrals: Akila Diaz PA-C [Primary Care Provider, Family Practice] - In 1 week Patient/Caregiver Discharge Instructions Print Language: Persian MDM Narrative MDM hospital course (for use when minimal MDM required): Scribe Attestation: 10/27/25 Love Coffey am scribing for and in the presence of Dr. Huynh. Clinical Information Provided by: patient Medical Records reviewed [facility] (Per chart review, patient was seen here on 10/21/25 for polypharmacy.) Meds/Rx considered, not ordered None Labs/Rad/Tests considered, not ordered None Chronic Illness/Social Conditions Explain: Hx HTN, HLD, DMII on metformin and Ozempic, history of bilateral recurrent DVTs, history of PE s/p IVC filter on Xarelto, Factor V Leiden mutation on Xarelto, HFpEF 55-60% (05/11/2025), diastolic dysfunction, CAD, hypothyroidism, history of gout, restless leg syndrome, AYLEEN on Cpap, BPH Labs Labs: interpreted by me Imaging Imaging interpretation: interpreted by me Medication Administration(s) Medication Administration History Discontinued Medications Hydrocodone Bitart/Acetaminophen (Hydrocodone/Apap 5/325 Tablet) 1 tab PO X1 ONE Stop: 10/27/25 03:30 Last Admin: 10/27/25 03:46 Dose: 1 tab Documented By: CVL see above Diagnosis Differential Diagnosis ED Complaint MDM: See MDM
[2025-10-27 07:40] VITALS: BP 143/85; PULSE 76; RESP 20; TEMP 36.6; O2SAT 94
--- NOTE | 2025-10-27 07:43 | EDNOTE_ITS ---
Emergency Room Addendum Addendum Narrative: 0600: Care assumed from Dr. Huynh, the previous shift emergency physician. Past medical, surgical, social and family history reviewed. Vitals and home medications reviewed. I will assume the care of the patient at this time, pending ultrasound report and final disposition. Please refer to the emergency department record for history and examination from initial visit.?The following addendum documentation note is intended to reflect any pending information, findings, or radiology results not included in the patient?s initial chart. Venous duplex ultrasound of bilateral lower extremities shows Positive for nonocclusive acute thrombus involving the distal right superficial femoral vein . On reassessment, patient complains of some pain to bilateral upper and lower extremities. During ED course, patient received [place] (5/325). Will order a dose Toradol before he goes home. Patient remains clinically stable throughout the emergency department visit. States he is compliant with his Eliquis and his PCP has sent a referral to [facility] on 10/02/2025 for further management and care of the DVTs. We reviewed all the results, analysis, and treatment plans. Patient is amenable to discharge. Strict return precautions were outlined. Diagnosis: Non-occlusive thrombus
[2025-10-27] MEDS: KETOROLAC INJ 30 MG/ML VIAL IM (07:52)
== END 2025-10-27 07:55 | disposition home or self-care (01) ==
PROVIDERS: Physician Assistant; Emergency Provider Emergency Medicine; PCP Physician Assistant
DX: I82.811 Embolism and thrombosis of superficial veins of right lower extremity (principal); M79.672 Pain in left foot; E11.42 Type 2 diabetes mellitus with diabetic polyneuropathy; Z86.718 Personal history of other venous thrombosis and embolism; Z79.01 Long term (current) use of anticoagulants
CPT/HCPCS: 36415; 80053; 82550; 83880; 85025; 93970; 96372; 99283; J1885; A9270

== ENCOUNTER 2025-11-11 07:30 | Emergency (ER) | payer MEDICAID, SELFPAY ==
[2025-11-11 07:32] VITALS: BP 157/87; PULSE 77; RESP 18; TEMP 36.6; O2SAT 95
[2025-11-11 07:33] VITALS: PULSE 72; O2SAT 98; BMI 38.2
[2025-11-11 07:34] VITALS: BMI 38.2
--- NOTE | 2025-11-11 07:40 | PD.EDCHEST ---
ED Chest Pain RME/HPI General Chief Complaint: Chest Pain Stated Complaint: CHEST PAIN Time Seen by Provider: 11/11/25 07:39 Arrival date/time: 11/11/25 07:30 RME / HPI RME / HPI narrative: See [facility] for Dr. West's HPI documentation. Related Data Home Medications ?Medication ?Instructions ?Recorded ?Confirmed lisinopril 20 mg tablet 20 mg PO BID #0 tabs 08/22/17 06/23/25 metformin 500 mg tablet 500 mg PO HS 06/28/21 06/23/25 ropinirole 0.25 mg tablet 0.25 mg PO HS 10/03/21 06/23/25 amiodarone 200 mg tablet 200 mg PO QDAY 04/05/22 06/23/25 atorvastatin 40 mg tablet 40 mg PO HS 09/04/22 06/23/25 finasteride 5 mg tablet 5 mg PO QDAY 10/24/23 06/23/25 allopurinol 100 mg tablet 200 mg PO DAILY 01/07/25 06/23/25 loratadine 10 mg tablet (Claritin) 10 mg PO QDAY PRN allergic symptoms 01/07/25 06/23/25 multivitamin (Daily Multi-Vitamin 1 tab PO QAM 01/07/25 06/23/25 tablet) ondansetron HCl 4 mg tablet 4 mg PO TID PRN nausea and vomiting 01/07/25 06/23/25 albuterol sulfate 90 mcg/actuation 90 mcg inhalation Q4H PRN 06/23/25 06/23/25 breath activated powder inhaler shortness of breath or wheezing (ProAir RespiClick) benzonatate 200 mg capsule 200 mg PO 3XD PRN cough 06/23/25 06/23/25 furosemide 20 mg tablet 20 mg PO DAILY 06/23/25 06/23/25 gabapentin 100 mg capsule 100 mg PO 3XD 06/23/25 06/23/25 Previous Rx's ?Medication ?Instructions ?Recorded rivaroxaban 20 mg tablet (Xarelto) 20 mg PO QDAY #30 tabs 01/28/25 Allergies Allergy/AdvReac Type Severity Reaction Status Date / Time No Known Allergies Allergy Verified 11/12/25 23:22 Review of Systems Review of Systems Systems Reviewed: All systems reviewed, normal except as documented Past Medical History Past Medical History CARDIAC: Positive Cardiac Disorders, Myocardial Infarction, Angina, Coronary Artery Disease, Atherosclerotic Heart Disease, Hypercholesterolemia, Congestive Heart Failure, Edema, Deep Vein Thrombosis and Hypertension RESPIRATORY: Positive Asthma, Pneumonia, Pulmonary Embolism and Sleep Apnea GASTROINTESTINAL: Positive Gastrointestinal Disorders, Gastroesophageal Reflux Disease and Obesity GENITOURINARY: Positive Genitourinary Disorders, Kidney Stones and Benign Prostatic Hyperplasia MUSCULOSKELETAL: Positive Musculoskeletal Disorders and Gout ENDOCRINE: Positive Endocrine Disorders and Diabetes Mellitus Type 2 HEMATOLOGIC: Positive Blood Disorders and Clotting Problems PSYCHO/SOCIAL: Positive Anxiety OTHER HISTORY: Positive Developmental Delay and Falls Family History FAMILY HISTORY: Positive Family Cardiac Disorders, Family Cancer and Family Surgery Surgical History SURGICAL: Positive Vascular Surgery and Angiogram Social History SMOKING STATUS: Never smoker SECOND HAND EXPOSURE: No SUBSTANCE USE: does not use 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 West's physical exam documentation. Course Quality Measures none Orders Category Date Time Status EKG (ED ONLY) *Do not use* NOW Care 11/11/25 07:42 Completed Saline [Insert IV] NOW Care 11/11/25 07:41 Completed EKG (ED Only) Stat Exams 11/11/25 07:42 Ordered XR chest 1V portable Stat Exams 11/11/25 07:42 Completed BNP [B-Type Natriuretic Peptide] Stat Lab 11/11/25 07:40 Completed Bilirubin,Direct Stat Lab 11/11/25 07:40 Completed CBC Stat Lab 11/11/25 07:40 Completed CMP [Comprehensive Metabolic Panel] Stat Lab 11/11/25 07:40 Completed Hemoglobin A1C [Glycohemoglobin w (eAG)] Stat Lab 11/11/25 07:40 Completed Magnesium Stat Lab 11/11/25 07:40 Completed TSH [Thyroid Stimulating Hormone] Stat Lab 11/11/25 07:40 Completed Troponin I Stat Lab 11/11/25 07:40 Completed Troponin I Stat Lab 11/11/25 09:54 Completed Morphine* Inj Med 11/11/25 07:41 Discontinued 2 mg IV X1 ONE Sodium Chloride 0.9% 1000 ml [Ns] 1,000 ml Med 11/11/25 08:05 Discontinued IV 999 mls/hr Vital Signs Vital signs: Vital Signs Temperature 97.9 F 11/11/25 07:32 Pulse Rate 77 11/11/25 07:32 Respiratory Rate 18 11/11/25 07:32 Blood Pressure 157/87 H 11/11/25 07:32 Pulse Oximetry (%) 95 11/11/25 07:32 Oxygen Delivery Method Room Air 11/11/25 07:32 Pulse ox is 95% on room air which is adequate. Chest Pain MDM Narrative MDM Narrative:: This section includes all my notes and documentations, including HPI, PE, and ED course. Gustavo West MD HPI: 50-year-old male here with a month history of chest pain. Reports having a heart attack 7 years ago, treated with only medications. No shortness of breath. No unusual fatigue or malaise. No palpitations. No other complaints. ROS: All negative except as documented in HPI. Physical Exam: General: Alert and oriented. Appears anxious. Eyes: Conjunctivae and lids clear. ENT: No nasal congestion. Neck: Supple. Heart: RRR. Lungs: No respiratory distress. Good air movement. No rhonchi, wheezing, rales. Abdomen: Soft and nontender. Skin: Warm and dry. Neuro: Alert and oriented X 3. I reviewed EMS notes. I reviewed all diagnostic test results: My interpretation of the EKG is: Sinus rhythm (72 bpm) with nonspecific ST-T changes. My interpretation of the chest x-ray is: NAD. Blood tests remarkable for troponin 0.408 (delta troponin is 0.387). At this point, diagnoses include: Chronic chest pain Treatment here included: IVF Morphine 2 mg IV He felt much better. Recommended more outpatient cardiac workup. Based on my best medical judgment, made decision no further evaluation or treatment indicated at this time. Patient understands and agrees to the discharge instructions customized and printed, see below. Discharge instructions from Dr. West: 1. After extensive evaluation, there is no life-threatening condition.? Such as heart attack or pulmonary embolism (blood clots in your lungs) or pneumothorax (collapsed lung). 2. Your symptoms may be due to underlying stress or anxiety or nerves.? This is fairly common. 3. Your pain can be originating from the chest wall and not from an internal organ.? The chest wall has many joints and muscles between the ribs, so sprains and strains are common.?? Apply ice or heat if helpful.? Tylenol/ibuprofen as needed. 4. See a private doctor on 11/13/2025 for recheck. To make sure there is no serious underlying heart condition, ask to help you get more tests for your heart that cannot be done here in the ER.? Such as Holter Monitor (cardiac monitoring at home from a day to even a month), heart stress test (on treadmill or with medication), echocardiogram (imaging of your heart structures), heart catherization (checking for blockages in your heart arteries), and a referral to see a Validation Analyst. 5. Seek immediate medical care with worsening or with any concerns.?? Gustavo West MD Patient data External records reviewed:: [facility] previous records and EMS form Clinical information provided by:: patient and EMS Social determinants that could affect healthcare access:: none Patient has the following chronic illnesses:: HFpEF (EF55-60% 04/2025), CAD,hypertension, diabetes, hyperlipidemia, history of bilateral recurrent DVTs, history of PE s/p IVC filter, Factor V Leiden mutation on Xarelto, hypothyroidism, BPH How is presenting disease/condition affected by chronic disease/condition?: exacerbated by Evaluation data The following diagnostics were reviewed and interpreted by me:: lab results, radiology exam(s) and EKG tracing(s) (My interpretation of the EKG is: Sinus rhythm (72 bpm) with nonspecific ST-T changes. Gustavo West MD) Lab and/or radiology exams considered but not ordered:: None Interpretation Summary: I reviewed all diagnostic test results: My interpretation of the EKG is: Sinus rhythm (72 bpm) with nonspecific ST-T changes. My interpretation of the chest x-ray is: NAD. Blood tests remarkable for troponin 0.408 (delta troponin is 0.387). Medications / Prescriptions Medications or Prescriptions considered but not ordered:: None Medication administrations:: Medication Administration History Discontinued Medications Sodium Chloride (Ns) 1,000 mls @ 999 mls/hr IV .Q1H1M ONE Stop: 11/11/25 09:05 Last Infusion: 11/11/25 09:27 Dose: Infused Documented By: Admin: 11/11/25 08:23 Dose: 999 mls/hr Documented By: DO Morphine Sulfate (Morphine Sulf Inj 4 Mg/Ml Vial) 2 mg IV X1 ONE Stop: 11/11/25 07:42 Last Admin: 11/11/25 07:50 Dose: 2 mg Documented By: DO Treatment here included: IVF Morphine 2 mg IV Consultations Consultation(s) initiated? (list below): No Diagnosis Chest Pain Differential Diagnosis: pneumothorax, stable angina, unstable angina pectoris, atypical chest pain, st elevation myocardial infarction and costochondritis Most likely diagnosis given after review of the tests above:: At this point, diagnoses include: Chronic chest pain Admission Indicated Admission indicated?: not indicated Explain why admission is indicated or not indicated:: With significant improvement and no condition needing emergent intervention, there was no indication for admission. Admission Request Was there a request for admission?: No Disposition Plan Disposition Plan: Discharge Discharge Attestation Discharge Attestation: The patient and all family members were given an opportunity to ask questions and understood the discharge instructions. Discharge instructions specifically effects, indications for sooner follow up or return to the emergency department, and the expected course of current diagnosis. Patient condition: Stable Discharge Plan Plan Patient Disposition: HOME (Self Care) Prescriptions/Referrals Prescriptions/Med Rec: No Action lisinopril 20 MG tablet 20 mg PO BID Qty: 0 Patient Comments: PER GAHZALA MORRIS, ONLY TAKES IF SBP >125 metformin 500 mg tablet 500 mg PO HS Patient Comments: TAKE 1 TABLET BY MOUTH EVERY DAY AT BEDTIME FOR DIABETES ropinirole 0.25 mg Tablet 0.25 mg PO HS Patient Comments: 1-3 HRS PRIOR TO BEDTIME amiodarone 200 mg Tablet 200 mg PO QDAY atorvastatin 40 mg tablet 40 mg PO HS Patient Comments: TAKE 1 TABLET BY MOUTH AT BEDTIME FOR CHOLESTEROL benzonatate 200 mg capsule 200 mg PO 3XD PRN (Reason: cough) Patient Comments: TAKE 1 CAPSULE BY MOUTH THREE TIMES A DAY NEEDED FOR COUGH gabapentin 100 mg capsule 100 mg PO 3XD Patient Comments: TAKE 1 CAPSULE BY MOUTH THREE TIMES A DAY FOR 30 DAYS furosemide 20 mg tablet 20 mg PO DAILY Patient Comments: TAKE 1 TABLET BY MOUTH EVERY DAY IN THE MORNING FOR EDEMA ProAir RespiClick 90 mcg/actuation aerosol powdr breath activated 90 mcg INHALATION Q4H PRN (Reason: shortness of breath or wheezing) Patient Comments: INHALE 1-2 PUFF EVERY 4 HOURS INHALATION NEEDED finasteride 5 mg tablet 5 mg PO QDAY Patient Comments: TAKE 1 TABLET BY MOUTH EVERY DAY allopurinol 100 mg tablet 200 mg PO DAILY Patient Comments: TAKE 2 TABS BY MOUTH 1 TIME A DAY FOR GOUT multivitamin [Daily Multi-Vitamin] Tablet 1 tab PO QAM loratadine [Claritin] 10 mg tablet 10 mg PO QDAY PRN (Reason: allergic symptoms) ondansetron HCl 4 mg tablet 4 mg PO TID PRN (Reason: nausea and vomiting) Xarelto 20 mg tablet 20 mg PO QDAY Qty: 30 3RF Rx Instructions: must administer with evening meal Referrals: Akila Diaz PA-C [Primary Care Provider, Family Practice] - In 1 week Problem List Clinical Impression: Chronic chest pain Patient/Caregiver Discharge Instructions Discharge Activity: activity as tolerated Education Materials: ED Chest Pain, Uncertain Cause Additional Instructions: Discharge instructions from Dr. West: 1. After extensive evaluation, there is no life-threatening condition.? Such as heart attack or pulmonary embolism (blood clots in your lungs) or pneumothorax (collapsed lung). 2. Your symptoms may be due to underlying stress or anxiety or nerves.? This is fairly common. 3. Your pain can be originating from the chest wall and not from an internal organ.? The chest wall has many joints and muscles between the ribs, so sprains and strains are common.?? Apply ice or heat if helpful.? Tylenol/ibuprofen as needed. 4. See a private doctor on 11/13/2025 for recheck. To make sure there is no serious underlying heart condition, ask to help you get more tests for your heart that cannot be done here in the ER.? Such as Holter Monitor (cardiac monitoring at home from a day to even a month), heart stress test (on treadmill or with medication), echocardiogram (imaging of your heart structures), heart catherization (checking for blockages in your heart arteries), and a referral to see a Validation Analyst. 5. Seek immediate medical care with worsening or with any concerns.?? Print Language: Portuguese Stand Alone Forms: [employer] Info., Patient Portal Info Letter
--- NOTE | 2025-11-11 07:42 | EKG_ITS ---
[facility] Test Date: 2025-11-11 Pat Name: DAVID RAJPUT Department: Room: - Gender: Male Information Assurance Analyst: : 1975 Requested By: Gustavo Giron Order Number: [id number] Reading MD: Gustavo Giron Measurements Intervals [place] Rate: 72 P: 36 WA: 204 QRS: 39 QRSD: 97 T: -5 QT: 386 QTc: 424 Interpretive Statements SINUS RHYTHM INCOMPLETE RIGHT BUNDLE BRANCH BLOCK [90+ ms QRS DURATION, TERMINAL R IN V1/V2, 40+ ms S IN I/aVL/V4/V5/V6] NONSPECIFIC T-WAVE ABNORMALITY Compared to ECG 07/18/2025 07:23:23 No significant changes /store/Sv/[id number]/[id number]
--- NOTE | 2025-11-11 07:42 | XR_ITS ---
Study: Chest radiograph. INDICATION: Short of breath with chest pain. TECHNIQUE: Portable semiupright chest radiograph at 0926 hours 11 November 2025. FINDINGS: The heart is normal in size and contour. Superior mediastinal structures are narrow and peripheral vessels are normal in distribution. The lungs are fully expanded and free from alveolar infiltrates. There may be a subcentimeter ellipsoidal nodule in the right mid lung zone unchanged from 22 June 2025. There are no effusions. No pneumothorax is noted. The view is rotated RPO. IMPRESSION: No acute diagnostic abnormality. No significant change from 22 June 2025.
[2025-11-11] MEDS: MORPHINE SULF INJ 4 MG/ML VIAL 2 MG IV (07:50)
[2025-11-11 07:59] LABS: Basophils % (Auto) 1 % (0-2.5); Eosinophils % (Auto) 3 % (0-10); Hematocrit 51.0 % (41.0-53.0); Hemoglobin 17.1 g/dL (13.5-16.0); Lymphocytes # (Auto) 2.0 Thou/mm3 (1.0-4.8); Lymphocytes % (Auto) 30 % (10-50); Mean Corpuscular HGB Conc 33.5 g/dl (31.0-37.0); Mean Corpuscular Hemoglobin 31.0 pg (25.0-35.0); Mean Corpuscular Volume 93 fL (80-100); Monocytes % (Auto) 15 % (0-12); Neutrophils # (Auto) 3.5 Thou/mm3 (1.8-7.7); Neutrophils % (Auto) 52 % (37-80); Platelet Count 242 Thou/mm3 (140-440); RDW Standard Deviation 42.0 fL (35.1-43.9); Red Blood Count 5.51 Miln/mm3 (4.50-5.90); White Blood Count 6.7 Thou/mm3 (3.8-10.6)
[2025-11-11 08:00] LABS: Basophils # (Auto) 0.1 Thou/mm3 (0.0-0.2); Eosinophils # (Auto) 0.2 Thou/mm3 (0.0-0.5); Immature Granulocytes Auto 0.02 Thou/mm3 (0.00-0.00); Monocytes # (Auto) 1.0 Thou/mm3 (0.0-0.8); Nucleated Red Blood Cell # 0.00 Thou/mm3 (0.00-0.00); Nucleated Red Blood Cell % 0 /100 WBC (0)
[2025-11-11 08:22] LABS: Alanine Aminotransferase 30 U/L (10-49); Albumin, Serum 4.1 gm/dL (3.5-5.0); Albumin/Globulin Ratio 1.6 (1.2-2.2); Alkaline Phosphatase 160 U/L (46-116); Anion Gap 8 (7-16); Aspartate Amino Transferase 22 U/L (0-34); BUN/Creatinine Ratio 9 Ratio (12-20); Bilirubin,Direct 0.2 mg/dL (0.0-0.3); Bilirubin,Total 0.4 mg/dL (0.3-1.2); Blood Urea Nitrogen 10 mg/dL (9-23); Calcium 8.5 mg/dL (8.3-10.6); Calcium (Corrected) 8.5 mg/dL (8.5-10.1); Carbon Dioxide 31.9 mMol/L (20.0-31.0); Chloride 105 mMol/L (98-107); Creatinine (Component) 1.1 mg/dL (0.6-1.3); Estimated Creatinine Clearance 89.4 mL/min (>60); Globulin 2.5 gm/dL (2.3-3.5); Glucose 108 mg/dL (74-106); Magnesium 1.8 mg/dL (1.6-2.6); Osmolality,Calculated 288 (275-295); Potassium 4.2 mMol/L (3.4-5.1); Sodium 145 mMol/L (136-145); Thyroid Stimulating Hormone 2.12 uIU/mL (0.55-4.78); Total Protein 6.6 gm/dL (5.7-8.2); eGFR > 60 See Note
[2025-11-11] MEDS: SODIUM CHLORIDE 0.9% 1000 ML 1,000 ML 999 ML IV (08:23)
[2025-11-11 08:26] LABS: Troponin I 0.408 ng/mL (0.0-0.045)
[2025-11-11 08:44] LABS: Glucose Estimated Average 108 mg/dL (80-131); Hemoglobin A1C 5.4 % Hgb (4.8-6.0)
[2025-11-11 09:06] LABS: B-Type Natriuretic Peptide < 20 pg/mL (0-100)
[2025-11-11 10:20] VITALS: BP 126/68; PULSE 70; RESP 18; TEMP 36.6; O2SAT 97
[2025-11-11 10:46] LABS: Troponin I 0.387 ng/mL (0.0-0.045)
[2025-11-11 11:36] VITALS: BP 132/61; PULSE 74; RESP 17; TEMP 36.6; O2SAT 97
== END 2025-11-11 11:38 | disposition home or self-care (01) ==
PROVIDERS: Emergency Provider Emergency Medicine; PCP Physician Assistant
DX: R07.9 Chest pain, unspecified (principal); R06.02 Shortness of breath; I45.10 Unspecified right bundle-branch block; G89.29 Other chronic pain; I25.2 Old myocardial infarction; E78.00 Pure hypercholesterolemia, unspecified; Z79.01 Long term (current) use of anticoagulants
CPT/HCPCS: 36415; 71045; 80053; 82248; 83036; 83735; 83880; 84443; 84484; 85025; 93005; 96360; 99283; J2270; J7030